=== PATIENT | male | born 1945 | race Caucasian/White ===

== ENCOUNTER 2023-01-10 11:46 | Emergency (ER) | payer MEDICARE, BC, SELFPAY ==
[2023-01-10 11:55] VITALS: BP 143/73; PULSE 62; RESP 14; TEMP 36.5; O2SAT 97; BMI 26.8
--- NOTE | 2023-01-10 12:13 | CRLHL7_ITS ---
For Patients: As a result of the 21st Century Cures Act, medical imaging exams and procedure reports are released immediately into your electronic medical record. You may view this report before your referring provider. If you have questions, please contact your health care provider. INDICATION: Left lower lung crackles, abnormal breath sounds, left flank pain, left-sided abdominal pelvic pain, history of prostate cancer. TECHNIQUE: CT chest, abdomen and pelvis acquired with IV contrast. COMPARISON: 11/22/2020 FINDINGS: Chest: Cardiovascular structures: Heart size is normal. Thoracic aorta and main pulmonary artery are normal in caliber. No pulmonary artery filling defects are seen to suggest pulmonary emboli. Extensive coronary artery and to a lesser extent thoracic aortic atherosclerotic calcifications. Mediastinum and elodia: No mass or adenopathy. Lungs: Pulmonary emphysema and nonspecific peripheral interstitial pulmonary scarring is re-identified with no acute pulmonary infiltrate. Pleura and pericardium: No effusions. Chest wall and axilla: No mass or adenopathy. Bones: Spondylosis change with a stable moderate anterior wedge compression fracture deformity of T4. Widespread osseous sclerotic metastases are again noted. Abdomen and Pelvis: Liver: Unremarkable. Spleen: Unremarkable. Pancreas: Unremarkable. Gallbladder and bile ducts: Mild gallbladder distention and mild intrahepatic as well as extrahepatic biliary duct dilation. Correlation with liver function tests is recommended. An obstructing distal common bile duct stone is not identified. Kidneys: Unremarkable. Adrenal glands: Unremarkable. GI tract: Diverticulosis of the colon most evident in the distal colon. Subtle stranding of the pericolonic fat is noted in the proximal sigmoid colon region and could represent mild diverticulitis change. No extraluminal loculated fluid collection to suggest abscess or free intraperitoneal air is seen. Appendix is normal. Nondistended stomach with apparent gastric wall thickening re-identified. Vascular structures: Atherosclerotic calcifications in the nondilated abdominal aorta and iliac arteries. Lymph nodes: Unremarkable. Miscellaneous: Small fat containing umbilical hernia and small fat containing left inguinal hernia. Pelvic Organs: Status post prostatectomy. Bones: Small osseous sclerotic foci are re-identified in the spine and to lesser extent pelvis. IMPRESSION: 1. Suspect mild diverticulitis involving the proximal sigmoid colon with no abscess or free intraperitoneal air. 2. Pulmonary emphysema and fibrotic changes without acute pulmonary infiltrate. 3. Mild biliary ductal prominence/dilation. Correlation with liver function tests would be helpful. 4. Status post prostatectomy with numerous small sclerotic osseous metastases suspected and unchanged. 5. Other findings are as noted above. Please note that all CT scans at this facility use dose modulation, iterative reconstruction, and/or weight-based dosing when appropriate to reduce radiation dose to as low as reasonably achievable. Dictated by Denzel Rizvi MD @ 01/10/2023 2:51:24 PM (Electronically Signed)
[2023-01-10] MEDS: HYDROmorphone 2 MG TABLET 4 MG PO (12:21)
--- NOTE | 2023-01-10 12:21 | ED.GENADULT ---
HPI - General Adult General Chief complaint: Abdominal Pain Stated complaint: chest pain Time Seen by Provider: 01/10/23 12:01 Source: patient Mode of arrival: ambulatory Limitations: no limitations History of Present Illness HPI narrative: Some 7-year-old male presents the emergency department with flank area pain for the past week, significant worsening over the past 24 hours. Not accompanied by fever. Does feel short of breath but more so just simply has a significant increase in pain with taking a deep breath. No paroxysmal nocturnal dyspnea, no productive cough. He also denies chest pain or prior history of cardiac issues. He tried taking 2 Tylenol this morning with some temporary improvement in his symptoms. No fevers, no dysuria. He does have a history of known prostate cancer. He initially told me that he has had this type of pain before but then on further clarification he tells me that he has never had this type of pain before and has never had investigated by physician. I reviewed the records and see than in , he has documentation of known metastatic disease to his left ribs and presented with left-sided chest and abdominal pain at that time. Those notes indicate that he was taking significant amounts of oxycodone and had constipation at the time. He does not take narcotic pain medication on a regular basis now. Denies injury or trauma. Denies any blood in his stools or urine. No recent fall. Accompanied by his today. Pain is located in the left very lateral abdomen/side from about the 6th rib down to the top of the hip laterally on the left side, radiates and wraps around to the back, achy and constant in nature, worse with movement and deep breath. Past medical history notable for metastatic prostate cancer with known metastases to the bone. He gets [facility] of [facility] I do not know the most up-to-date status but have reviewed the notes from 10/04. Medications reviewed, family says that these are accurate as listed. He is a nonsmoker. No pertinent travel. ROS is notable for the generalized and abdominal symptoms as described above, otherwise denies times 12 systems. Related Data Home Medications Medication Instructions Recorded Confirmed aspirin 325 mg tablet 81 mg PO QDAY 11/27/21 01/10/23 atorvastatin 40 mg tablet 40 mg PO .Bedtime 11/27/21 01/10/23 cholecalciferol (vitamin D3) 50 2,000 unit PO DAILY 11/27/21 01/10/23 mcg (2,000 unit) tablet leuprolide 7.5 mg (Ped) mg IM ONCE 11/27/21 11/27/21 intramuscular kit methotrexate sodium 2.5 mg tablet mg PO .Every 7 Days 11/27/21 11/27/21 omega 4-ovj-gyz-fish oil 60 mg-90 1 cap PO QDAY 11/27/21 01/10/23 mg-500 mg capsule (Fish Oil) omeprazole 40 mg capsule,delayed mg PO DAILY 11/27/21 11/27/21 release pediatric multivitamin no.16 with tab PO 11/27/21 11/27/21 fluoride 0.25 mg chewable tablet (Multivitamins With Fluoride) sulfamethoxazole 400 1 tab PO DAILY 11/27/21 01/10/23 mg-trimethoprim 80 mg tablet abiraterone 250 mg tablet 1,000 mg PO QAM 01/10/23 01/10/23 aspirin 81 mg tablet,delayed 81 mg PO DAILY 01/10/23 01/10/23 release leuprolide (3 month) IM 01/10/23 olaparib 150 mg tablet (Lynparza) 150 mg PO BID 01/10/23 01/10/23 prednisone 10 mg tablet 10 mg PO DAILY 01/10/23 01/10/23 prochlorerazone 10 mg QID PRN 01/10/23 Previous Rx's Medication Instructions Recorded triamcinolone acetonide 0.025 % 1 applic topical BID #15 grams 11/27/21 topical cream ciprofloxacin HCl 500 mg tablet 500 mg PO Q12H #20 tabs 01/10/23 hydromorphone 2 mg tablet 2 - 4 mg (1 - 2 x 2 mg) PO Q6H PRN 01/10/23 pain #7 tabs metronidazole 500 mg tablet 500 mg PO Q12H #20 tabs 01/10/23 Allergies Allergy/AdvReac Type Severity Reaction Status Date / Time oxycodone Allergy Unknown Verified 01/10/23 13:27 PFSH [facility] Social History Smoking Status: Never smoker Exam Const: Vital Signs, click to edit/add: Vital Signs - 24 hr 01/10/23 11:55 01/10/23 13:02 Temperature 97.7 F Pulse Rate [Pulse Oximeter] 62 Respiratory Rate 14 Blood Pressure 126/63 Blood Pressure [Le ft Upper Arm] 143/73 H Pulse Oximetry 97 98 Oxygen Delivery Me thod Room Air Documenting provider has reviewed patient's vital signs: yes Common normals: alert General appearance: well kempt Orientation/consciousness: Yes awake Other: Mild distress due to pain. Cooperative. Suboptimal historian but does not seem to be delirious. HENMT: Common normals: normocephalic and head/scalp atraumatic Head and scalp: normocephalic and atraumatic Face and sinus: normal facial exam Mouth: oral and palatal mucosa normal Throat: posterior oropharynx normal Eye: Common normals: conjunctivae normal General eye: normal appearance of both eyes Conjunctiva: conjunctiva(e) normal Neck & C-Spine: Common normals: full ROM and no lymphadenopathy Chest: Common normals: inspection of chest normal and palpation of chest normal Resp: Common normals: normal respiratory effort and no use of accessory muscles Other: Crackles in the left lower posterior lung pace. Cardio: Common normals: regular rate, regular rhythm, S1 normal heart sound, S2 normal heart sound and no murmurs Rate: regular rate Rhythm: regular rhythm Heart sounds: S1 normal and S2 normal GI: Other: Abdomen does not seem distended. He is not really tender to palpation over the epigastrium or right abdomen, mildly so over the left very lateral abdomen. Bowel sounds are a little hyperactive but I do not believe they sound obstructive. No obvious mass. : Other: Left-sided CVA tenderness is present on the left, though mild. Back & Pelvis: Thoracic spine/upper back: normal to inspection; no thoracic spinal tenderness and no paraspinal muscle tenderness Extremity: Common normals: normal capillary refill and no pedal edema Other: Negative Phillip sign bilaterally Neuro: Sensorium/orientation: awake and alert Speech: speech normal Gait (neuro): normal gait Motor exam: no movement abnormalities noted Psych: Common normals: thought process normal Appearance: grossly normal and well kempt Thought process: normal thought process Insight: fair Judgement: judgment good Skin: Common normals: no rashes or lesions noted General skin exam: no rashes or lesions noted Course Course ED Course: Flank area pain of uncertain etiology. Does seem to be in a significant amount of pain. I do not think this is constipation like his last ED visit. He is no longer using narcotics. Differential diagnosis including bowel obstruction, pulmonary embolism, pleural effusion, pneumonia, pathological fracture. More likely metastatic disease with pleuritic-type pain. Worse with deep breath and movement. Recommend basic labs, CT scan of the chest abdomen and pelvis. Will be given 4 mg of oral hydromorphone for pain due to previous oxycodone intolerance while we await findings. Reevaluation(s) Time of Reevaluation #1: 15:06 Reevaluation #1: Reviewed findings with patient. Pain is improving with the hydromorphone. Reviewed lab findings and CT findings. Because he does have a white count and CT findings suspicious for diverticulitis, I think this is the most likely diagnosis though I have discussed with him that there is a possibility that the pain could be related to his cancer and known bony spread. If it is related to the diverticulitis, sing should be improving significantly within 2 days on the antibiotics. He should make a follow-up appointment with his primary care doctor in 2-4 days for recheck. He may cancel this appointment if he is doing markedly better. If not improving, I would want his oncologist input regarding next steps in management and further workup regarding bone cancer pain if needed. He will be started on ciprofloxacin and metronidazole, 1st dose given in ED. I will send additional 10 day supply to his pharmacy. Alarm symptoms reviewed that would warrant ED presentation. Counseled on Tylenol and ibuprofen for pain control, very limited supply of hydromorphone given in case this is needed, counseled on risk of constipation. All questions answered. Vital Signs Vital signs: Initial Vital Signs Temperature 97.7 F 01/10/23 11:55 Temperature Source Temporal Artery Scan 01/10/23 11:55 Pulse Rate 62 01/10/23 11:55 Pulse Rhythm Regular 01/10/23 11:55 Respiratory Rate 14 01/10/23 11:55 Blood Pressure 143/73 H 01/10/23 11:55 Blood Pressure Mean 96 01/10/23 11:55 Blood Pressure Position Sitting 01/10/23 11:55 Pulse Oximetry 97 01/10/23 11:55 Oxygen Delivery Method Room Air 01/10/23 11:55 Vital Signs Temperature 97.7 F 01/10/23 11:55 Pulse Rate 62 01/10/23 11:55 Respiratory Rate 14 01/10/23 11:55 Blood Pressure 143/73 H 01/10/23 11:55 Pulse Oximetry 97 01/10/23 11:55 Oxygen Delivery Method Room Air 01/10/23 11:55 Temperature 97.7 F 01/10/23 11:55 Pulse Rate 62 01/10/23 11:55 Respiratory Rate 14 01/10/23 11:55 Blood Pressure 126/63 01/10/23 13:02 Pulse Oximetry 98 01/10/23 13:02 Oxygen Delivery Method Room Air 01/10/23 11:55 Medical Decision Making Lab Data Lab results reviewed: Yes I reviewed the patient's lab results Lab results narrative: Mild infection, no inflammation. Alk-phos is not elevated, making bone cancer diagnosis less likely. Labs: Lab Results 01/10/23 01/10/23 Range/Units 12:30 13:23 WBC 13.42 H (4.50-11.00) K/uL RBC 3.04 L (4.30-5.90) m/uL Hgb 12.9 L (13.5-17.5) gm/dL Hct 37.6 (37.0-53.0) % MCV 124 H (80-100) fL MCH 42 H (26-34) pg MCHC 34 (32-36) gm/dL RDW Coeff of [place] 14.4 (11.5-15.5) % Plt Count 184 (140-440) K/uL Neut % (Auto) 93.7 H (42.0-72.0) % Lymph % (Auto) 1.5 L (20-44) % [place] % (Auto) 4.2 (0.0-11.0) % Eos % (Auto) 0.1 (0.0-7.0) % Baso % (Auto) 0.1 (0.0-3.0) % Neut # (Auto) 12.60 H (1.7-7.0) K/uL Lymph # (Auto) 0.20 L (0.90-2.90) K/uL [place] # (Auto) 0.60 (0.00-0.90) K/UL Eos # (Auto) 0.00 (0.00-0.50) K/uL Baso # (Auto) 0.00 (0.00-0.30) K/uL Abs Immat Gran (auto) 0.10 (0.00-0.30) K/uL Imm/Tot Granulo (auto) 0.4 % INR 0.91 (0.91-1.10) D-Dimer Quant (PE/DVT) 0.47 (0.00-0.50) ug/ml Sodium 136 (135-149) mmol/L Potassium 4.2 (3.6-5.1) mmol/L Chloride 103 (96-114) mmol/L Carbon Dioxide 28 (20-32) mmol/L Anion Gap 5 L (7-15) mEq/L BUN 18 (7-30) mg/dL Creatinine 1.0 (0.5-1.5) mg/dL Estimated Creat Clear 57.95 Estimated GFR 77 ml/min Glucose 114 (60-115) mg/dL Lactate 1.3 (0.5-1.9) mmol/L Calcium 9.0 (8.4-10.6) mg/dL Total Bilirubin 0.6 (0.1-1.5) mg/dL AST 30 (12-35) U/L ALT 16 (4-50) U/L Alkaline Phosphatase 111 (40-150) U/L C-Reactive Protein < 0.5 L (0.5-1.0) mg/dL NT-Pro-B Natriuret Pep 124 pg/mL Total Protein 6.9 (6.0-8.3) g/dL Albumin 4.1 (3.3-5.0) g/dL Lipase 26 (23-300) U/L Urine Color Yellow (Yellow) Urine Appearance Clear (Clear) Urine pH 7.0 (5.0-8.5) Ur Specific [place] 1.015 (1.000-1.030) Urine Protein Negative (Negative) Urine Glucose (UA) Negative (Negative) Urine Ketones Negative (Negative) Urine Blood Trace-intact A (Negative) Urine Nitrite Negative (Negative) Urine Bilirubin Negative (Negative) Urine Urobilinogen 0.2 (0.2-1.0) Ur Leukocyte Esterase Negative (Negative) Urine RBC 0-2 (0-2) Urine WBC 0-2 (0-5) Ur Squamous Epith Cells None (None-Few) Urine Bacteria None (None) Imaging Data CT scan - abdomen: Attestation: I have reviewed the pertinent imaging results. My impression: No obvious mass or hernia. 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 There seems to be some inflammation in the left lower pelvis as well. No obvious abscess or free air. Radiologist's impression: IMPRESSION: 1. Suspect mild diverticulitis involving the proximal sigmoid colon with no abscess or free intraperitoneal air. 2. Pulmonary emphysema and fibrotic changes without acute pulmonary infiltrate. 3. Mild biliary ductal prominence/dilation. Correlation with liver function tests would be helpful. 4. Status post prostatectomy with numerous small sclerotic osseous metastases suspected and unchanged. 5. Other findings are as noted above. ECG Data Attestation: I personally reviewed and interpreted this ECG as follows: Prior ECG tracings: not available for review Interpretation: Normal sinus rhythm with slight 1st degree AV block. There is incomplete right bundle-branch block with no other ischemic changes. Rate is 65 with normal axis. Discharge Plan Discharge Clinical Impression: Acute diverticulitis Instructions: Diverticulitis (ED) Additional Instructions: As we discussed, I think her pain is caused by acute diverticulitis. This is an infection and inflammation of the lower left part of your colon. I would like to start you on antibiotics for this. You will take 2 different antibiotics, ciprofloxacin and metronidazole 1 tablet 2 times daily. Try to take these about 12 hours apart. The dose given in the emergency department will count as your evening dose today. 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 Your next dose will be early tomorrow morning. For pain, I recommend Tylenol 1000 mg 3 times daily and or ibuprofen 600 mg every 8 hours. I have given you a small supply of hydromorphone, the pills that your given in the emergency department. Take these only for severe pain if you have maxed out the 2 other options. Your pain should start to improve considerably in 48 hours. I would like for you to call tomorrow morning and make an appointment to be re-evaluated by your primary care doctor on Wednesday or . You can cancel the appointment if you are doing much better. Remember that the hydromorphone may cause constipation. Use stool softeners and or MiraLax if needed. As we discussed, there is certainly a possibility that this pain could be related to cancer spread into your ribs and bones of your back. This has been the case in the past. If your pain is not markedly better within a couple of days, it makes this cancer diagnosis and prognosis much more likely. Would like for you to touch base with her oncology team if your pain is not improving for additional testing. The tests that I have done in the emergency department and can do on a Wednesday afternoon here may not fully answer this question. In the meantime, if you start experiencing persistent vomiting, significant bloody stools, severe weakness and or high fevers, come back to the emergency department. Activity Level: Activity as Tolerated Discharge Diet: Regular Prescriptions: New metronidazole 500 mg tablet 500 mg PO Q12H Qty: 20 0RF ciprofloxacin HCl 500 mg tablet 500 mg PO Q12H Qty: 20 0RF hydromorphone 2 mg tablet 2 - 4 mg PO Q6H PRN (Reason: pain) Qty: 7 0RF Rx Instructions: For severe pain not relieved by Tylenol and ibuprofen No Action cholecalciferol (vitamin D3) 50 mcg (2,000 unit) tablet 2,000 unit PO DAILY sulfamethoxazole-trimethoprim 400-80 mg tablet 1 tab PO DAILY leuprolide 7.5 mg (Ped) kit IM ONCE Multivitamins With Fluoride 0.25 mg tablet,chewable PO atorvastatin 40 mg tablet 40 mg PO .Bedtime aspirin 325 mg tablet 81 mg PO QDAY methotrexate sodium 2.5 mg tablet PO .Every 7 Days omeprazole 40 mg capsule,delayed release(DR/EC) PO DAILY omega 0-wkd-jwc-fish oil [Fish Oil] 60-90-500 mg capsule 1 cap PO QDAY triamcinolone acetonide 0.025 % cream 1 applic topical BID Qty: 15 1RF aspirin 81 mg tablet,delayed release (DR/EC) 81 mg PO DAILY leuprolide (3 month) [Lupron Depot (3 month)] IM Lynparza 150 mg tablet 150 mg PO BID prochlorerazone 10 mg QID PRN Rx Instructions: 1 tab as needed for vomiting abiraterone 250 mg tablet 1,000 mg PO QAM Rx Instructions: must be taken on empty stomach, at least 1 hr before or 2 hrs after a meal/food prednisone 10 mg tablet 10 mg PO DAILY Follow Up/Referrals: Jaime Trevizo MD [Primary Care Provider] -
[2023-01-10 12:36] LABS: Basophils Percent Auto 0.1 % (0.0-3.0); Eosinophils Percent Auto 0.1 % (0.0-7.0); Hematocrit 37.6 % (37.0-53.0); Hemoglobin* 12.9 gm/dL (13.5-17.5); Immature Granulocytes Pct Auto 0.4 %; Lymphocytes Percent Auto 1.5 % (20-44); Mean Corpuscular HGB Conc 34 gm/dL (32-36); Mean Corpuscular Hemoglobin 42 pg (26-34); Mean Corpuscular Volume 124 fL (80-100); Monocytes Percent Auto 4.2 % (0.0-11.0); Neutrophils Percent Auto 93.7 % (42.0-72.0); Platelet Count* 184 K/uL (140-440); RDW Coefficient of Variation % 14.4 % (11.5-15.5); Red Blood Count 3.04 m/uL (4.30-5.90); White Blood Count* 13.42 K/uL (4.50-11.00)
[2023-01-10 12:46] LABS: Lactate* 1.3 mmol/L (0.5-1.9)
[2023-01-10 12:47] LABS: Slide Review Reflex No
[2023-01-10 12:58] LABS: INR 0.91 (0.91-1.10); Prothrombin Time 12.8 Seconds
[2023-01-10 13:02] VITALS: BP 126/63; O2SAT 98
[2023-01-10 13:09] LABS: Albumin* 4.1 g/dL (3.3-5.0); Chloride* 103 mmol/L (96-114); Sodium* 136 mmol/L (135-149)
[2023-01-10 13:10] LABS: Potassium* 4.2 mmol/L (3.6-5.1)
[2023-01-10 13:12] LABS: Alkaline Phosphatase* 111 U/L (40-150); Anion Gap 5 mEq/L (7-15); Aspartate Amino Transferase* 30 U/L (12-35); Bilirubin Total* 0.6 mg/dL (0.1-1.5); Carbon Dioxide* 28 mmol/L (20-32); Est. Creatinine Clearance* 57.95; Estimated Glomerular Filt Rate 77 ml/min; Total Protein* 6.9 g/dL (6.0-8.3)
[2023-01-10 13:13] LABS: Alanine Aminotransferase* 16 U/L (4-50); Blood Urea Nitrogen* 18 mg/dL (7-30); Glucose* 114 mg/dL (60-115); Lipase* 26 U/L (23-300)
[2023-01-10 13:14] LABS: D Dimer Quantitative* 0.47 ug/ml (0.00-0.50)
[2023-01-10 13:19] LABS: C Reactive Protein* < 0.5 mg/dL (0.5-1.0)
[2023-01-10 13:28] LABS: Appearance Urine Clear (Clear); Bilirubin Urine Negative (Negative); Blood Urine Trace-intact (Negative); Color Urine Yellow (Yellow); Glucose Urine Negative (Negative); Ketones Urine Negative (Negative); Leukocyte Esterase Urine Negative (Negative); Nitrite Urine Negative (Negative); Protein Urine Negative (Negative); Specific Gravity Urine 1.015 (1.000-1.030); Urobilinogen Urine 0.2 (0.2-1.0)
[2023-01-10 13:29] LABS: NT Pro B Type NatriureticPept* 124 pg/mL
[2023-01-10 13:40] LABS: RBC Urine 0-2 (0-2); WBC Urine 0-2 (0-5)
[2023-01-10] MEDS: CIPROFLOXACIN 500 MG TABLET PO (15:16)
[2023-01-10] MEDS: metroNIDAZOLE 500 MG TABLET PO (15:16)
[2023-01-10 15:21] VITALS: BP 143/73; PULSE 62; RESP 14; TEMP 36.5
[2023-01-10 15:24] VITALS: BP 121/70; PULSE 68; RESP 12; O2SAT 96
[2023-04-06 10:52] LABS: Troponin, Point-of-Care* 0.01 ng/ml (0.01-0.04)
== END 2023-01-10 15:22 | disposition home or self-care (01) ==
PROVIDERS: Emergency Provider Family Medicine; PCP Family Medicine
DX: K57.92 Diverticulitis of intestine, part unspecified, without perforation or abscess without bleeding (principal)
CPT/HCPCS: 36415; 71260; 74177; 80053; 81001; 83605; 83690; 83880; 84484; 85025; 85379; 85610; 86140; 93005; 99284; 99285; A9270; Q9967

== ENCOUNTER 2023-04-25 17:17 | Emergency (ER) | payer MEDICARE, BC, SELFPAY ==
[2023-04-25] VITALS (13 sets, daily range): BP systolic 120–148; BP diastolic 67–75; PULSE 74–84; RESP 18; TEMP 36.4; O2SAT 93–97; BMI 24.8
--- NOTE | 2023-04-25 17:50 | ED_ITS ---
HPI - General Adult General Chief complaint: Dizziness/Vertigo Stated complaint: Severe dizziness, shortness of breath Time Seen by Provider: 04/25/23 17:20 Source: patient Mode of arrival: ambulatory Limitations: no limitations History of Present Illness HPI narrative: [age] Year old male with metastatic prostate cancer coming in today with several concerns. 1. he complains of shortness of breath. He states he has been short of breath for several years. He states that a few years ago he had a bypass which did help his shortness of breath did take it away completely. Continues to today. He feels like in the last couple of months it has perhaps gotten worse. He does not feel short of breath at rest only with physical activity. He does not have any chest pain. 2. He complains of feeling dizzy. Dizziness has been going on for quite some time as well, unclear how long. He states that he feels off balance. He states that the dizziness has gotten worse since this Wednesday which is 4 days ago. He states that it comes and goes, he is not dizzy all the time. This morning for example he felt fine had his breakfast without difficulty and then the dizziness came and has been present all day. He states he has been sitting in his recliner most of the day and he but has only urinated twice. 3. Extreme fatigue. This is been present for quite some time. He takes methylphenidate because of this. He feels like it is not helping in the fatigue is only getting worse. He has no energy. 4. Cough. Has been present for about a month. It is productive of thick phlegm. He denies fevers or chills. He did vomit once this morning. He states he has had diarrhea for about a month but in the last week he has had 1 or 2 solid bowel movements per day. Patient states that he started immunotherapy 03/16/2023 and is also currently undergoing radiation therapy. Related Data Home Medications Medication Instructions Recorded Confirmed aspirin 325 mg tablet 81 mg PO QDAY 11/27/21 04/25/23 atorvastatin 40 mg tablet 40 mg PO .Bedtime 11/27/21 04/25/23 cholecalciferol (vitamin D3) 50 2,000 unit PO DAILY 11/27/21 01/10/23 mcg (2,000 unit) tablet leuprolide 7.5 mg (Ped) mg IM ONCE 11/27/21 11/27/21 intramuscular kit methotrexate sodium 2.5 mg tablet mg PO .Every 7 Days 11/27/21 11/27/21 omega 7-jgl-ncr-fish oil 60 mg-90 1 cap PO QDAY 11/27/21 01/10/23 mg-500 mg capsule (Fish Oil) omeprazole 40 mg capsule,delayed mg PO DAILY 11/27/21 11/27/21 release pediatric multivitamin no.16 with tab PO 11/27/21 11/27/21 fluoride 0.25 mg chewable tablet (Multivitamins With Fluoride) sulfamethoxazole 400 1 tab PO DAILY 11/27/21 01/10/23 mg-trimethoprim 80 mg tablet abiraterone 250 mg tablet 1,000 mg PO QAM 01/10/23 01/10/23 aspirin 81 mg tablet,delayed 81 mg PO DAILY 01/10/23 01/10/23 release leuprolide (3 month) IM 01/10/23 olaparib 150 mg tablet (Lynparza) 150 mg PO BID 01/10/23 01/10/23 prednisone 10 mg tablet 10 mg PO DAILY 01/10/23 01/10/23 prochlorerazone 10 mg QID PRN 01/10/23 Previous Rx's Medication Instructions Recorded triamcinolone acetonide 0.025 % 1 applic topical BID #15 grams 11/27/21 topical cream ciprofloxacin HCl 500 mg tablet 500 mg PO Q12H #20 tabs 01/10/23 hydromorphone 2 mg tablet 2 - 4 mg (1 - 2 x 2 mg) PO Q6H PRN 01/10/23 pain #7 tabs metronidazole 500 mg tablet 500 mg PO Q12H #20 tabs 01/10/23 Allergies Allergy/AdvReac Type Severity Reaction Status Date / Time oxycodone Allergy Unknown Verified 01/10/23 13:27 Review of Systems Status of ROS: Reports: 10 or more systems reviewed and unremarkable except as noted in History and below [facility] Social History Smoking Status: Never smoker Do you use any of these nicotine containing products: None Second hand tobacco smoke exposure: No How often do you have a drink containing alcohol: never AUDIT-C Alcohol total score: 0 Non-prescribed substance use: denies use Exam Narrative: Exam Narrative: Well-nourished well-developed patient in no acute distress. Alert and oriented. Answers questions appropriately. Mood and affect are appropriate. Thoughts are goal oriented and rational. No tangential or magical thinking noted. Patient speaks in full sentences without needing to catch his breath. HEENT: Normocephalic atraumatic. Pupils are equally round reactive to light. Extraocular muscles are intact. Conjunctivae are moist without any icterus noted. Slightly dry mucous membranes. Neck is soft. Cardiovascular: Distant heart sounds. Regular rate and rhythm. Lungs: Clear to auscultation bilaterally no wheezes rhonchi or rales are appreciated. Patient takes deep breaths without any discomfort. Abdomen: Soft, protuberant , nontender and nondistended with normal bowel sounds. Extremities: Bilateral lower extremities are without edema. Skin: Well perfused. Const: Vital Signs, click to edit/add: Vital Signs - 24 hr 04/25/23 17:21 04/25/23 17:48 Temperature 97.5 F L Pulse Rate [Right Pulse Oximeter] 81 Respiratory Rate 18 Blood Pressure [Ri ght Upper Arm] 148/72 H Pulse Oximetry 97 96 Oxygen Delivery Me thod Room Air Course Course ED Course: The differential diagnosis at this time includes infectious etiology such as COV ID-19 or pneumonia, coronary artery disease, cancer progression, side effects of immunotherapy and radiation, PE, bronchitis. EKG, read by me, shows normal sinus rhythm with a first-degree AV block, i ncomplete right bundle-branch block, pulse 78. IV is established and labs were drawn. CBC showed a hemoglobin of 11.8, hematocrit of 34.9, white blood cell count of 8.34, platelet count 236. 85.1% neutrophils. Sodium was low at 128, normal potassium. Normal renal function. With IV fluids were started: Patient received a total of 1 L of normal saline over 2 hours. LFTs were elevated with a an AST of 82, ALT of 101, alkaline phosphatase is 457. Because of this and right upper quadrant ultrasound was ordered, this was unremarkable. D-dimer was elevated at 0.72. Chest CT PE protocol did not show any evidence of PE, however did show potential pneumonia. Triple swab was negative. Normal troponin. Patient felt significantly better after L of fluid. He was able to walk to the bathroom with his cane without assistance and he was no longer dizzy. Vital Signs Vital signs: Initial Vital Signs Temperature 97.5 F L 04/25/23 17:21 Temperature Source Temporal Artery Scan 04/25/23 17:21 Pulse Rate 81 04/25/23 17:21 Respiratory Rate 18 04/25/23 17:21 Blood Pressure 148/72 H 04/25/23 17:21 Blood Pressure Mean 97 04/25/23 17:21 Blood Pressure Position Sitting 04/25/23 17:21 Pulse Oximetry 97 04/25/23 17:21 Oxygen Delivery Method Room Air 04/25/23 17:21 Vital Signs Temperature 97.5 F L 04/25/23 17:21 Pulse Rate 81 04/25/23 17:21 Respiratory Rate 18 04/25/23 17:21 Blood Pressure 148/72 H 04/25/23 17:21 Pulse Oximetry 97 04/25/23 17:21 Oxygen Delivery Method Room Air 04/25/23 17:21 Temperature 97.5 F L 04/25/23 17:21 Pulse Rate 81 04/25/23 17:21 Respiratory Rate 18 04/25/23 17:21 Blood Pressure 148/72 H 04/25/23 17:21 Pulse Oximetry 96 04/25/23 17:48 Oxygen Delivery Method Room Air 04/25/23 17:21 Medications Administered Medications: Discontinued Medications Generic Name Dose Route Start Last Admin Trade Name Freq PRN Reason Stop Dose Admin Sodium Chloride 500 mls @ 500 mls/hr 04/25/23 17:53 04/25/23 19:28 0.9 % Sodium Chloride 500 Ml IV 04/25/23 18:52 Infused .Q1H ONE Infusion Sodium Chloride 500 mls @ 500 mls/hr 04/25/23 18:59 04/25/23 19:28 0.9 % Sodium Chloride 500 Ml IV 04/25/23 19:58 500 mls/hr .Q1H ONE Administration Meclizine HCl 25 mg 04/25/23 18:59 04/25/23 19:26 Meclizine Hcl 25 Mg Tablet PO 04/25/23 19:00 25 mg ONCE ONE Administration Medical Decision Making [facility] Narrative Medical decision making narrative: 77-year-old male presenting with increased fatigue, shortness of breath, cough, dizziness and found to have Hyponatremia, elevated LFTs, infiltrate on chest CT concerning for a developing pneumonia. Given that the patient does have a productive cough that seems to be worsening and increased fatigue, I do not think it is unreasonable to treat for pneumonia. Patient will be sent home with Keflex. I do want him to have a sodium repeated in the next 2-3 days-he will do this with his primary care provider. Medical Records Medical records reviewed: Yes I reviewed the patient's medical records Lab Data Lab results reviewed: Yes I reviewed the patient's lab results Labs: Lab Results 04/25/23 04/25/23 04/25/23 Range/Units 17:49 18:03 18:10 WBC 8.34 (4.50-11.00) K/uL RBC 3.10 L (4.30-5.90) m/uL Hgb 11.8 L (13.5-17.5) gm/dL Hct 34.9 L (37.0-53.0) % MCV 113 H (80-100) fL MCH 38 H (26-34) pg MCHC 34 (32-36) gm/dL RDW Coeff of [place] 13.1 (11.5-15.5) % Plt Count 236 (140-440) K/uL Neut % (Auto) 85.1 H (42.0-72.0) % Lymph % (Auto) 2.3 L (20-44) % Glenn % (Auto) 10.9 (0.0-11.0) % Eos % (Auto) 0.7 (0.0-7.0) % Baso % (Auto) 0.4 (0.0-3.0) % Neut # (Auto) 7.10 H (1.7-7.0) K/uL Lymph # (Auto) 0.20 L (0.90-2.90) K/uL Glenn # (Auto) 0.90 (0.00-0.90) K/UL Eos # (Auto) 0.06 (0.00-0.50) K/uL Baso # (Auto) 0.03 (0.00-0.30) K/uL Abs Immat Gran (auto) 0.05 (0.00-0.30) K/uL Imm/Tot Granulo (auto) 0.6 % D-Dimer Quant (PE/DVT) 0.72 H (0.00-0.50) ug/ml Sodium 128 L (135-149) mmol/L Potassium 4.7 (3.6-5.1) mmol/L Chloride 97 (96-114) mmol/L Carbon Dioxide 23 (20-32) mmol/L Anion Gap 8 (7-15) mEq/L BUN 13 (7-30) mg/dL Creatinine 0.6 (0.5-1.5) mg/dL Estimated Creat Clear 61.85 Estimated GFR 98 ml/min Glucose 184 H (60-115) mg/dL Lactate 1.0 (0.5-1.9) mmol/L Calcium 8.6 (8.4-10.6) mg/dL Total Bilirubin 0.5 (0.1-1.5) mg/dL Direct Bilirubin 0.3 (0.0-0.5) mg/dL AST 82 H (12-35) U/L ALT 101 H (4-50) U/L Alkaline Phosphatase 457 H (40-150) U/L Troponin I < 0.01 L (0.01-0.04) ng/mL C-Reactive Protein 8.3 H (0.5-1.0) mg/dL NT-Pro-B Natriuret Pep 192 pg/mL Total Protein 6.9 (6.0-8.3) g/dL Albumin 3.7 (3.3-5.0) g/dL TSH 1.520 (0.270-4.20) uIU/mL Urine Color (Yellow) Urine Appearance (Clear) Urine pH (5.0-8.5) Ur Specific [place] (1.000-1.030) Urine Protein (Negative) Urine Glucose (UA) (Negative) Urine Ketones (Negative) Urine Blood (Negative) Urine Nitrite (Negative) Urine Bilirubin (Negative) Urine Urobilinogen (0.2-1.0) Ur Leukocyte Esterase (Negative) Urine RBC (0-2) Urine WBC (0-5) Ur Squamous Epith Cells (None-Few) Urine Bacteria (None) SARS-CoV-2 (PCR) Negative SARS-CoV-2 (Negative) Monoscreen Negative (Negative) Influenza Type A (PCR) Negative PCR FLU A (Negative) Influenza Type B (PCR) Negative PCR FLU B (Negative) RSV (PCR) Negative PCR RSV (Negative) POC Troponin I 0.01 (0.01-0.04) ng/ml 04/25/23 Range/Units 18:40 WBC (4.50-11.00) K/uL RBC (4.30-5.90) m/uL Hgb (13.5-17.5) gm/dL Hct (37.0-53.0) % MCV (80-100) fL MCH (26-34) pg MCHC (32-36) gm/dL RDW Coeff of [place] (11.5-15.5) % Plt Count (140-440) K/uL Neut % (Auto) (42.0-72.0) % Lymph % (Auto) (20-44) % Glenn % (Auto) (0.0-11.0) % Eos % (Auto) (0.0-7.0) % Baso % (Auto) (0.0-3.0) % Neut # (Auto) (1.7-7.0) K/uL Lymph # (Auto) (0.90-2.90) K/uL Glenn # (Auto) (0.00-0.90) K/UL Eos # (Auto) (0.00-0.50) K/uL Baso # (Auto) (0.00-0.30) K/uL Abs Immat Gran (auto) (0.00-0.30) K/uL Imm/Tot Granulo (auto) % D-Dimer Quant (PE/DVT) (0.00-0.50) ug/ml Sodium (135-149) mmol/L Potassium (3.6-5.1) mmol/L Chloride (96-114) mmol/L Carbon Dioxide (20-32) mmol/L Anion Gap (7-15) mEq/L BUN (7-30) mg/dL Creatinine (0.5-1.5) mg/dL Estimated Creat Clear Estimated GFR ml/min Glucose (60-115) mg/dL Lactate (0.5-1.9) mmol/L Calcium (8.4-10.6) mg/dL Total Bilirubin (0.1-1.5) mg/dL Direct Bilirubin (0.0-0.5) mg/dL AST (12-35) U/L ALT (4-50) U/L Alkaline Phosphatase (40-150) U/L Troponin I (0.01-0.04) ng/mL C-Reactive Protein (0.5-1.0) mg/dL NT-Pro-B Natriuret Pep pg/mL Total Protein (6.0-8.3) g/dL Albumin (3.3-5.0) g/dL TSH (0.270-4.20) uIU/mL Urine Color Yellow (Yellow) Urine Appearance Clear (Clear) Urine pH 6.0 (5.0-8.5) Ur Specific [place] 1.010 (1.000-1.030) Urine Protein Negative (Negative) Urine Glucose (UA) Negative (Negative) Urine Ketones Negative (Negative) Urine Blood Negative (Negative) Urine Nitrite Negative (Negative) Urine Bilirubin Negative (Negative) Urine Urobilinogen 0.2 (0.2-1.0) Ur Leukocyte Esterase Negative (Negative) Urine RBC 0-2 (0-2) Urine WBC 0-2 (0-5) Ur Squamous Epith Cells None (None-Few) Urine Bacteria None (None) SARS-CoV-2 (PCR) (Negative) Monoscreen (Negative) Influenza Type A (PCR) (Negative) Influenza Type B (PCR) (Negative) RSV (PCR) (Negative) POC Troponin I (0.01-0.04) ng/ml Imaging Data Chest x-ray: Attestation: I have reviewed the pertinent imaging results. Radiologist's impression: Chest 2 views. COMPARISON: CT 01/10/2023. Radiographs 11/25/2020.. FINDINGS: Unchanged cardiomediastinal silhouette. Lungs are hyperinflated with bilateral interstitial opacities, increased compared to prior radiographs from 2000. Nodular density along the left heart border appears new compared to prior CT. No definite consolidation. No pleural effusion or pneumothorax. IMPRESSION: 1. Findings of emphysema and interstitial lung disease, increased compared to prior radiographs from 2020. 2. New nodular opacity adjacent to the left heart border may be artifactual secondary to overlap versus pulmonary nodule or small focus of atelectasis/infection. Recommend repeat radiographs in 4-6 weeks to document resolution. CT scan - chest: Attestation: I have reviewed the pertinent imaging results. Radiologist's impression: [address] [address] Diagnostic Imaging Report Patient: Martin Gates MR#: [id number] : 1945 Acct:[id number] Loc: ED Service Date: 04/25/[address]: Ordering Physician: Viki Stanford M.D. Date of Service: 04/25/23 Procedure(s): CT angio chest PE protocol Accession Number(s): [id number] cc: Viki Stanford M.D.; Jaime Trevizo M.D.~ For Patients: As a result of the Cures Act, medical imaging exams and procedure reports are released immediately into your electronic medical record. You may view this report before your referring provider. If you have questions, please contact your health care provider. INDICATION: Shortness of breath. TECHNIQUE: CT chest PE was acquired with 95 Isovue 370 cc Omnipaque 350 IV contrast. COMPARISON: CT 01/10/2023. FINDINGS: Heart and vasculature: Contrast opacification of the pulmonary arterial tree is adequate. No sign of pulmonary embolism. Heart size is normal. Thoracic aorta and pulmonary artery are normal in caliber. Atherosclerotic aortic and coronary artery calcifications. Lungs and pleura: Bilateral subpleural reticulation, centrilobular emphysema as well as pleural/parenchymal scarring is grossly similar to CT from 01/10/2023. Increased size of a right middle lobe pulmonary nodule measuring 6 mm, previously 2 mm (series 5, image 111). Increased size of a left upper lobe pulmonary nodule measuring 5 mm (image 63) similarly, additional small pulmonary nodules have increased in size. No pleural effusion pneumothorax. Small amount of secretions within the trachea and mainstem bronchi. New confluent consolidation in the medial right lung base (series 5, image 156) Lymph nodes/mediastinum: No mediastinal, hilar, or axillary adenopathy. Chest wall: No masses. Upper abdomen: No acute or significant findings. Bones: Osseous demineralization. Unchanged compression deformity T4. New inferior endplate compression deformity of T6 with mild vertebral body height loss. No retropulsion. Innumerable sub centimeter sclerotic lesions. Multilevel degenerative disc disease throughout the thoracic spine. IMPRESSION: 1. No evidence of pulmonary embolism. 2. Findings of pulmonary emphysema and interstitial lung disease with new small foci of consolidation that may represent early/developing pneumonia. 3. Increase in size of several small pulmonary nodules, which may be infectious/inflammatory versus metastatic. Recommend short-term interval follow-up CT in 6-8 weeks. 4. New mild T6 inferior endplate fracture. US - abdomen: Attestation: I have reviewed the pertinent imaging results. Radiologist's impression: INDICATION: Transaminitis. TECHNIQUE: Ultrasound abdomen limited. Sonographic images of the right upper quadrant were obtained using marrero-scale and color Doppler images. COMPARISON: CT chest abdomen pelvis 01/10/2023. FINDINGS: Liver: Normal in size and echotexture. No suspicious masses. No intrahepatic biliary dilatation. Portal vein is patent with blood flow toward the liver. Gallbladder: Biliary sludge. No cholelithiasis. Normal wall thickness. No pericholecystic fluid. No sonographic Mitchell`s sign. Common bile duct: 9 mm. Pancreas: Partially visualized pancreas appears within normal limits. Right kidney: Normal in size. Mildly increased echogenicity of the renal parenchyma. No suspicious masses, stones, or hydronephrosis. Vasculature: Proximal abdominal aorta and IVC are unremarkable. IMPRESSION: 1. No cholelithiasis. Biliary sludge and mildly distended common bile duct without other convincing evidence of acute cholecystitis. Consider further evaluation with MRCP or nuclear medicine HIDA scan. 2. Mildly increased echogenicity of the renal parenchyma, suggestive of medical renal disease. Discharge Plan Discharge Clinical Impression: Hyponatremia, Pneumonia Patient Disposition: Home, Self-Care Condition: Improved Additional Instructions: Take all antibiotics as prescribed. Follow-up with primary care provider this week to have your sodium levels rechecked. Return to the ER if your symptoms worsen. Prescriptions: No Action cholecalciferol (vitamin D3) 50 mcg (2,000 unit) tablet 2,000 unit PO DAILY sulfamethoxazole-trimethoprim 400-80 mg tablet 1 tab PO DAILY leuprolide 7.5 mg (Ped) kit IM ONCE Multivitamins With Fluoride 0.25 mg tablet,chewable PO atorvastatin 40 mg tablet 40 mg PO .Bedtime aspirin 325 mg tablet 81 mg PO QDAY methotrexate sodium 2.5 mg tablet PO .Every 7 Days omeprazole 40 mg capsule,delayed release(DR/EC) PO DAILY omega 3-zir-ery-fish oil [Fish Oil] 60-90-500 mg capsule 1 cap PO QDAY triamcinolone acetonide 0.025 % cream 1 applic topical BID Qty: 15 1RF aspirin 81 mg tablet,delayed release (DR/EC) 81 mg PO DAILY leuprolide (3 month) [Lupron Depot (3 month)] IM Lynparza 150 mg tablet 150 mg PO BID prochlorerazone 10 mg QID PRN Rx Instructions: 1 tab as needed for vomiting abiraterone 250 mg tablet 1,000 mg PO QAM Rx Instructions: must be taken on empty stomach, at least 1 hr before or 2 hrs after a meal/food prednisone 10 mg tablet 10 mg PO DAILY metronidazole 500 mg tablet 500 mg PO Q12H Qty: 20 0RF ciprofloxacin HCl 500 mg tablet 500 mg PO Q12H Qty: 20 0RF hydromorphone 2 mg tablet 2 - 4 mg PO Q6H PRN (Reason: pain) Qty: 7 0RF Rx Instructions: For severe pain not relieved by Tylenol and ibuprofen Follow Up/Referrals: Jaime Trevizo MD [Primary Care Provider] - Stand Alone Forms: My[facility] Info Instructions
[2023-04-25] MEDS: 0.9 % SODIUM CHLORIDE 500 ML 500 ML IV ×2 (18:15→19:28)
[2023-04-25 18:18] LABS: Basophils Absolute Auto 0.03 K/uL (0.00-0.30); Basophils Percent Auto 0.4 % (0.0-3.0); Eosinophils Absolute Auto 0.06 K/uL (0.00-0.50); Eosinophils Percent Auto 0.7 % (0.0-7.0); Hematocrit 34.9 % (37.0-53.0); Hemoglobin* 11.8 gm/dL (13.5-17.5); Immature Granulocytes Abs Auto 0.05 K/uL (0.00-0.30); Immature Granulocytes Pct Auto 0.6 %; Lymphocytes Percent Auto 2.3 % (20-44); Mean Corpuscular HGB Conc 34 gm/dL (32-36); Mean Corpuscular Hemoglobin 38 pg (26-34); Mean Corpuscular Volume 113 fL (80-100); Monocytes Percent Auto 10.9 % (0.0-11.0); Neutrophils Percent Auto 85.1 % (42.0-72.0); Platelet Count* 236 K/uL (140-440); RDW Coefficient of Variation % 13.1 % (11.5-15.5); White Blood Count* 8.34 K/uL (4.50-11.00)
[2023-04-25 18:20] LABS: Slide Review Reflex No
[2023-04-25 18:28] LABS: Troponin, Point-of-Care* 0.01 ng/ml (0.01-0.04)
[2023-04-25 18:29] LABS: Mono Screen* Negative (Negative)
[2023-04-25 18:33] LABS: Albumin* 3.7 g/dL (3.3-5.0); Chloride* 97 mmol/L (96-114)
[2023-04-25 18:34] LABS: Potassium* 4.7 mmol/L (3.6-5.1); Sodium* 128 mmol/L (135-149)
[2023-04-25 18:36] LABS: Alkaline Phosphatase* 457 U/L (40-150); Anion Gap 8 mEq/L (7-15); Aspartate Amino Transferase* 82 U/L (12-35); Bilirubin Direct* 0.3 mg/dL (0.0-0.5); Bilirubin Total* 0.5 mg/dL (0.1-1.5); Blood Urea Nitrogen* 13 mg/dL (7-30); Carbon Dioxide* 23 mmol/L (20-32); Creatinine* 0.6 mg/dL (0.5-1.5); Est. Creatinine Clearance* 61.85; Estimated Glomerular Filt Rate 98 ml/min; Total Protein* 6.9 g/dL (6.0-8.3)
[2023-04-25 18:37] LABS: Alanine Aminotransferase* 101 U/L (4-50); Calcium* 8.6 mg/dL (8.4-10.6); Glucose* 184 mg/dL (60-115)
[2023-04-25 18:38] LABS: D Dimer Quantitative* 0.72 ug/ml (0.00-0.50)
[2023-04-25 18:39] LABS: C Reactive Protein* 8.3 mg/dL (0.5-1.0)
--- NOTE | 2023-04-25 18:46 | CRLHL7_ITS ---
For Patients: As a result of the Century Cures Act, medical imaging exams and procedure reports are released immediately into your electronic medical record. You may view this report before your referring provider. If you have questions, please contact your health care provider. INDICATION: Shortness of breath. TECHNIQUE: CT chest PE was acquired with 95 Isovue 370 cc Omnipaque 350 IV contrast. COMPARISON: CT 01/10/2023. FINDINGS: Heart and vasculature: Contrast opacification of the pulmonary arterial tree is adequate. No sign of pulmonary embolism. Heart size is normal. Thoracic aorta and pulmonary artery are normal in caliber. Atherosclerotic aortic and coronary artery calcifications. Lungs and pleura: Bilateral subpleural reticulation, centrilobular emphysema as well as pleural/parenchymal scarring is grossly similar to CT from 01/10/2023. Increased size of a right middle lobe pulmonary nodule measuring 6 mm, previously 2 mm (series 5, image 111). Increased size of a left upper lobe pulmonary nodule measuring 5 mm (image 63) similarly, additional small pulmonary nodules have increased in size. No pleural effusion pneumothorax. Small amount of secretions within the trachea and mainstem bronchi. New confluent consolidation in the medial right lung base (series 5, image 156) Lymph nodes/mediastinum: No mediastinal, hilar, or axillary adenopathy. Chest wall: No masses. Upper abdomen: No acute or significant findings. Bones: Osseous demineralization. Unchanged compression deformity T4. New inferior endplate compression deformity of T6 with mild vertebral body height loss. No retropulsion. Innumerable sub centimeter sclerotic lesions. Multilevel degenerative disc disease throughout the thoracic spine. IMPRESSION: 1. No evidence of pulmonary embolism. 2. Findings of pulmonary emphysema and interstitial lung disease with new small foci of consolidation that may represent early/developing pneumonia. 3. Increase in size of several small pulmonary nodules, which may be infectious/inflammatory versus metastatic. Recommend short-term interval follow-up CT in 6-8 weeks. 4. New mild T6 inferior endplate fracture. Please note that all CT scans at this facility use dose modulation, iterative reconstruction, and/or weight-based dosing when appropriate to reduce radiation dose to as low as reasonably achievable. Dictated by Shreya Alston MD @ 04/25/2023 7:47:07 PM (Electronically Signed)
[2023-04-25 18:49] LABS: NT Pro B Type NatriureticPept* 192 pg/mL; Troponin I* < 0.01 ng/mL (0.01-0.04)
[2023-04-25 18:50] LABS: Appearance Urine Clear (Clear); Bilirubin Urine Negative (Negative); Blood Urine Negative (Negative); Color Urine Yellow (Yellow); Glucose Urine Negative (Negative); Ketones Urine Negative (Negative); Leukocyte Esterase Urine Negative (Negative); Nitrite Urine Negative (Negative); Protein Urine Negative (Negative); Urobilinogen Urine 0.2 (0.2-1.0)
[2023-04-25 18:51] LABS: PCR FLU A Negative PCR FLU A (Negative); PCR FLU B Negative PCR FLU B (Negative); PCR RSV Negative PCR RSV (Negative); SARS PCR* Negative SARS-CoV-2 (Negative)
[2023-04-25 18:56] LABS: RBC Urine 0-2 (0-2); WBC Urine 0-2 (0-5)
--- OUTSIDE RECORDS SUMMARY | 2023-04-25 18:58 | XMS_ITS | Clinical Summary ---
Author Name Unknown Organization [facility] Address [address] [place] [address] Care Team Providers Care Animal Rides Manager Name Role Phone Elsewhere, Pcp Primary Care Provider Unavailabl e Source Comments Patient records contain information from all sites at [facility]. For routine questions regarding patient records, call [phone] during business hours, M-F 8:00 AM - 5:00 PM Central Time. Record requests for emergency care only can be directed to [phone] at any time.[facility] Allergies Active Allergy Reactions Criticality Noted Date Comments Azathioprine Other (see comments),GI intolerance Medium 12/21/2019 Fatigue Oxycodone Other (see comments) 01/10/2023 Medications Medication Sig Dispensed Refills Start Date End Date Status cholecalciferol (for_VITAMIN D3) 2,000 Unit capsule Take 1 capsule by mouth daily. 0 08/10/2016 Active DOCOSAHEXANOIC ACID/EPA (FISH OIL ORAL) Take 1 capsule by mouth daily. 1000 mg daily as supplement. 0 12/31/2016 Active diphenhydrAMINE-acet aminophen (TYLENOL PM) 25-500 mg per tablet Take 1 tablet by mouth as needed. Insomnia 0 09/12/2013 Active aspirin (ASPIR-81 ORAL) Take 81 mg by mouth daily. 0 Active magnesium oxide (MAG-OX) 400 mg (241.3 mg magnesium) tablet Take 400 mg by mouth daily. 0 02/21/2020 Active nitroglycerin (NITROSTAT) 0.[address] 0.4 mg under the tongue as needed. 0 02/27/2020 Active zinc chelated 50 mg tablet tablet Take 50 mg by mouth daily. 0 Active ascorbic acid, vitamin C, (VITAMIN C) 1,000 mg tablet Take 1,000 mg by mouth daily. 0 Active atorvastatin (LIPITOR) 40 mg tablet Take 1 tablet (40 mg total) by mouth daily. 90 tablet 3 09/24/2021 Active potassium chloride (KLORCON/K-TAB) 10 mEq ER tablet Take 1 tablet (10 mEq total) by mouth daily. 90 tablet 3 09/24/2021 Active loperamide (IMODIUM A-D) 2 mg capsule Take 2 mg by mouth at bedtime as needed for diarrhea. 0 Active RITUXIMAB IV Infuse 1,000 mg into a venous catheter as directed. 1000 mg x 2, 2 weeks apart at [facility] on 06/10/2022 and 06/24/2022. 0 06/10/2022 Active melatonin 10 mg capsule Take 1 tablet by mouth as needed. 0 Active predniSONE (DELTASONE) 10 mg tablet Take 5 mg by mouth daily. 0 08/11/2022 Active leuprolide (ELIGARD 6 MONTH) 45 mg injection Lupron Depot (3 month) one shot every 3 months 0 Active sulfamethoxazole-tri methoprim (BACTRIM) 400-80 mg per tablet Take 1 tablet by mouth daily. 90 tablet 3 09/14/2022 Active HYDROmorphone (DILAUDID) 2 mg tablet Take 1 tablet by mouth. 0 01/21/2023 Active methylphenidate HCl (RITALIN) 5 mg tablet 0 01/28/2023 Active multivitamin (MULTIPLE VITAMINS ORAL) 1 tablet. 0 Active UNABLE TO FIND as needed. 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 Was previously unable to undergo stent placement due to recent gastric biopsies and duodenal polypectomy. Patient presented to ED 02/23/20 due to CP, but has been chest pain-free throughout this admission. He has been cleared from GI standpoint. Cardiac cath and PAULINA was placed in the mid LAD, potassium and magnesium were replaced as well as dual antiplatelet therapy x 1 year. -Continue ASA, statin, prn NTG -normotensive -denies cardiopulmonary symptoms -cardiologists in [place] discontinued Plavix Last Assessment & Plan: -Continue current treatment. Refills provided. Acquired Absence Of Other Genital Organs 019 Overview: Overview: -robotic-assisted radical prostatectomy by Dr. Duque July 01, 2004. Pathology revealed Devon 3 + 3, pT2c, N0, MX, R0 adenocarcinoma of the prostate. -He had biochemical recurrence and underwent salvage external beam radiation treatment that was completed November 29, 2013. 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 Started on prednisone (40 mg/day with taper) and methotrexate (25 mg/week). Started on Bactrim and folate as well. Tolerated the regimen well. His presentation included pleuritic chest pain for which he underwent imaging and chest CT showed multiple nodular consolidative opacities, some of which demonstrated cavitation. His c-ANCA and PR3 were positive. Bronchoscopy with BAL was performed, but TBLBx showed non-specific inflammatory changes. He was started on prednisone 40 mg/day (tapering dose) and methotrexate 25 mg/week and had radiographic and symptomatic improvement. Several weeks later, the BAL culture grew M. avium complex and M. gordonae, along with Penicillium and Cladosporum but the patient has remained asymptomatic from a pulmonary standpoint. February 2014: Prednisone on taper, currently 7.5 mg/day; Methotrexate at 25 mg/week. Symptoms resolved, chest CT improved. March 2014: Tapered off prednisone, continues on Methotrexate 25 mg/week. July 2014: Doing well, continuing on Methotrexate 25 mg/week. Nov 2014: Severe fatigue with methotrexate. Dose reduced to 20 mg/week, to be taken as 10 mg in AM and 10 mg in PM. July 2015: Doing well, continuing on methotrexate 20 mg/week. Since 2013, gradual decline in DLCO. ??He was enrolled in the lung cancer screening study in 2013 and has had regular follow-up CT chest studies since which showed some progression of mild non-specific interstitial changes??in stable centrilobular emphysematous changes. Therefore, MTX was replaced with AZA in October, but he did not tolerate AZA and was switched to MMF. ?? February 2021, at the time he did not have symptoms suggestive of recurrence of vasculitis, mycophenolate was held briefly due to leukopenia related to chemotherapy, his leukopenia recovered to mycophenolate was resumed, he continued then on low- dose prednisone and mycophenolate. He was started on Olaparib (300 mg b.i.d.) for metastatic prostate cancer, he follows with Dr. Mott in Hematology/oncology in the [facility]. He has been experiencing shortness of breath, headache, heart burn, joint pain, bruising, that he attributes to the Olaparib, he did not experience this prior the medication, they have been stable over the past few months, he decreased the dose with some improvement, he saw his oncologist who recommended to keep at this current dose (450 mg daily) ?? Last Assessment & Plan: Review of the laboratory test results shows normal markers of inflammation, macrocytosis on CBC likely related to mycophenolate, the rest of his metabolic profile is within normal range, chest x-ray overall unchanged. His ANCA titer is still pending. ?? He was advised to reach out to his Hematology-Oncology provider given macrocytosis in the setting of metastatic prostate cancer in current use of Olaparib. ?? He can continue on the current dose of prednisone 10 mg daily and Mycophenolate 1000 mg daily along with bactrim till his next follow up appointment with repeat PFTs in 6 months from now. ?? Cullen's Esophagus Personal History 05/16/2014 Overview: 02/2020 Last EGD showed: prominent gastric folds that were soft and multiple biopsies were taken. Mild erosive gastritis. Duodenal polyp in the fourth portion which was hot snared. Currently taking pantoprazole but none in the last few months. Asymptomatic Last Assessment & Plan: Continue pantoprazole. Advised to take in the morning on an empty stomach with a full glass of water 30-60 minutes prior to his first meal. Nodules Pulmonary Multiple 12/26/2013 Loss Hearing Sensorineural Bilateral 12/09/2011 Overview: Wears bilateral hearing aids Primary Malignant Neoplasm Of Prostate 4 Rising Prostate Specific Ant igen Following Treatment For Malignant Cancer Of Prostate 12/05/2003 Overview: -PSA began to rise again in July 2014. Lupron was initiated until Oct 2014. -PSA became detectible Dec 2015. -Lupron restarted July 2016 then a holiday in Nov 2016 -July 2017 PSA was elevated and Lupron was again given -PSA trended up at 15.6 on July 2018 when Lupron was initiated. - November 22, 2018:??PSA 35.5??ng/ml. Choline PET scan revealed choline avid lymph nodes in the retroperitoneum all the way up to the level of the kidneys. ??In addition,??patient??had??mediastinal and hilar lymph nodes that appeared??to be choline avid and possibly consistent with metastatic prostate cancer.Dr. Vicente advised the patient to??undergo abdominal MRI??to rule our any??evidence of liver metastases.? -December 13, 2018:??MRI was negative for any evidence of liver metastases. ??Dr. Vicente recommended he continue on??Lupron therapy??every 3 months??with the addition of??Zytiga with prednisone. ?? -March 09, 2019: PSA 2.7 ng/ml.??Imaging demonstrated a positive response to treatment therapy. ??He was recommended to continue on androgen deprivation therapy and Zytiga with prednisone??as prescribed.? -May 23, 2019: PSA 2.1 ng/ml. ?? - August 09, 2019: PSA 1.9 ng/ml.?C11 PET choline scan does reveal resolution or improvement in abdominal pelvic lymph nodes. ??Patient continues to have stable low level choline avid lymph nodes within the chest. ?? - November 09, 2019: PSA 1.9 ng/ml.?Imaging remain stable with no evidence of progression. ??Patient was recommended to continue on androgen deprivation therapy as well as Zytiga and prednisone. ?? -??March 06, 2020: ??PSA 5.9 ng/mL. ??C11 PET choline scan does reveal interval compression fracture of L5 vertebral body with increased choline uptake, which could result represent tumor involvement or possibly insufficiency fracture with just inflammation. There is also mildly choline avid mediastinal and hilar nodes which are more likely reactive. ??Also seen is stable appearance of left external iliac and aortocaval nodes which are only mildly choline avid. ?? -??June 05, 2020: ??PSA 4.9 ng/mL. ??C11 choline PET scan does not reveal clear site of prostate cancer progression or recurrence. Patient has benign L5 compression fracture.?Recommend the patient continue with 3 month Lupron??injections??and Zytiga. ? - August 29, 2020: PSA 8.5 ng/ml. Imaging demonstrated no??convincing??evidence??for metabolically active recurrent/residual disease. Stable symmetric hilar mediastinal uptake. ?? -September 20, 2020: ??Patient underwent PSMA PET scan. Innumerable intensely PSMA avid bone lesions and retroperitoneal lymph nodes suggestive of metastatic disease.?Patient was recommended to proceed with chemohormonal therapy.?September 2020 Guardant 360??noted + KAYE, candidate for Olaparib. ??TMB of >18, noting a candidate for pembrolizumab? -December 19, 2020: PSA 19.8 ng/mL.??PSA 11/29/20 locally was 28.3 ng/mL.?C11 PET choline scan does suggest numerous PSMA tracer avid skeletal metastases on previous imaging do not show pooling obtained today. ??None of lymph node metastases previously demonstrated on PSMA have choline tracer uptake today. ??There are several new tiny pulmonary nodules too small for characterization. ??At least two of previously seen PSMA positive skeletal metastases show only faint choline uptake previously are identified today.?Patient has received three cycles of carboplatin plus docetaxel chemotherapy through Dr. Mott at [facility]. ??Notably, patient does have high tumor mutation burden and make him a candidate for pembrolizumab as well as KAYE??mutation which makes??him candidate for Olaparib.? -??January??2020: ??Completed 3 additional cycles of carboplatin plus docetaxel under direction of Dr. Mott. ?? -February 21, 2021: ??PSA 8.8 ng/mL. ??C11 PET choline scan continued??to note decrease in choline avid osseous lesions. ??Decrease in his prior right mid lobe pulmonary nodule to 3 mm from prior 6 mm and along the major fissure measuring 6 mm from prior 1 cm. ??No new choline avid lesions.?Recommended to continue on androgen deprivation therapy and revisit with Dr. Mott to discuss treatment with??Olaparib or Keytruda secondary to his Guardant 360 testing results. ?? -February 28, 2021: initiated Olaparib??300 mg BID ?? -June 25, 2021: PSA 10.5 ng/ml.??Alk phosphatase and liver enzymes were within normal limits. ??Imaging was unchanged with mild uptake in the right sternum and midthoracic vertebral body. ??No new choline evidence of metastatic disease. ??Dr. Vicente recommended he continue on androgen deprivation therapy and Olaparib. ??When he returns, he will undergo a PSMA scan to determine if he could potentially be treated with Lutetium 177. ? - September 23, 2021: PSA 9.6 ng/mL. His PSMA scan demonstrates multiple PSMA avid osseous metastasis with a PSMA expression score of 2. He continues on Olaparib. Of note, shortly after starting Olaparib last February, he developed multiple side effects including headaches, nausea, back pain, lightheadedness. ??He decreased his dose to 1 tablet in the morning and two in the evening instead of 2 tablets twice daily. ?? Hypertension Essential Primary 11/30/2003 Hyperlipidemia 11/30/2002 Overview: Images from the original note were not included. Atorvastatin 40 mg. Tolerating well. Lipids 09/23/2021 9:45 AM CHOLESTEROL 161 TRIGLYCERIDES 155 HDL 76 Last Assessment & Plan: Continue current treatment. Refill provided. Dependence Nicotine 11/30/2002 Resolved Problems Problem Noted Date Diagnosed Date Resolved Date Asymmetry Breast 08/06/2017 08/11/2019 Smoking Tobacco Use Personal History 08/06/2017 08/08/2018 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 Encounters Date Type Department Care Team Description 04/22/2023 Clinical Communication Department of Radiation Oncology in [address] [address] Gurwinder Tejeda M.D. 04/21/2023 12:29 PM [facility] - 04/21/2023 8:13 PM [facility] Hospital Encounter Department of Radiation Oncology in [address] [address] Gurwinder Tejeda M.D. Secondary Malignant Neoplasm Bone (HCC) 04/21/2023 12:29 PM [facility] Encounter Department of Radiation Oncology in [address] [address] Gurwinder Tejeda M.D. 04/20/2023 11:46 AM [facility] Hospital Encounter Department of Radiation Oncology in [address] [address] Gurwinder Tejeda M.D. 04/19/2023 12:30 PM [facility] Encounter Department of Radiation Oncology in [address] [address] Gurwinder Tejeda M.D. 04/16/2023 4:34 PM [facility] Encounter Department of Radiation Oncology in [address] [address] Gurwinder Tejeda M.D. 04/13/2023 1:30 PM [facility] - 04/13/2023 3:56 PM [facility] Hospital Encounter Department of Radiation Oncology in [address] [address] Gurwinder Tejeda M.D. Primary Malignant Neoplasm Of Prostate (HCC); Rising Prostate Specific Antigen Following Treatment For Malignant Cancer Of Prostate 04/13/2023 12:42 PM [facility] - 04/13/2023 1:29 PM [facility] Hospital Encounter Department of Radiation Oncology in [address] [address] Gurwinder Tejeda M.D. Primary Malignant Neoplasm Of Prostate (HCC) (Primary Dx); Secondary Malignant Neoplasm Bone (HCC) 04/12/2023 Clinical Communication Department of Urology in [address] [address] Sushant Vicente M.D. Follow-up Orders 04/12/2023 Orders Only Department of Radiation Oncology in [address] [address] Florecita Starks APRN, C.N.P., D.N.P. Primary Malignant Neoplasm Of Prostate (HCC) (Primary Dx); Rising Prostate Specific Antigen Following Treatment For Malignant Cancer Of Prostate 04/09/2023 11:52 AM [facility] - 04/09/2023 11:59 PM [facility] Hospital Encounter Department of Radiology in [address] [phone] Florecita Starks APRN, C.N.P., D.N.P. Primary Malignant Neoplasm Of Prostate (HCC); Secondary Malignant Neoplasm Bone (HCC); Rising Prostate Specific Antigen Following Treatment For Malignant Cancer Of Prostate Discharge Disposition: Home or Self Care 04/07/2023 Clinical Communication Department of Radiation Oncology in [address] [address] Gurwinder Tejeda M.D. 04/06/2023 9:19 AM [facility] - 04/06/2023 2:23 PM [facility] Hospital Encounter Department of Radiation Oncology in [address] [address] Gurwinder Tejeda M.D. Rising Prostate Specific Antigen Following Treatment For Malignant Cancer Of Prostate (Primary Dx); Primary Malignant Neoplasm Of Prostate (HCC); Secondary Malignant Neoplasm Bone (HCC) 03/31/2023 Clinical Communication Department of Radiation Oncology in [address] [address] Gurwinder Tejeda M.D. 03/10/2023 Clinical Communication Division of Pulmonary Medicine in [place], [place] [address] [place] [address] Carson Fletcher M.D. Lab Monitoring (Vasculitis) 03/09/2023 4:00 PM [facility] Office Visit Division of Pulmonary Medicine in [place], [place] [address] [place] [address] Carson Fletcher M.D. 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 Secondary Malignant Neoplasm Bone (HCC) 02/24/2023 1:36 PM [facility] Hospital Encounter Department of Radiation Oncology in [address] [address] Gurwinder Tejeda M.D. Discharge Disposition: Home or Self Care 02/24/2023 Documentation Department of Radiation Oncology in [address] [address] Gurwinder Tejeda M.D. 02/19/2023 12:17 PM [facility] - 02/19/2023 4:24 PM [facility] Hospital Encounter Department of Radiation Oncology in [address] [address] Gurwinder Tejeda M.D. Secondary Malignant Neoplasm Bone (HCC) (Primary Dx); Primary Malignant Neoplasm Of Prostate (HCC) 02/18/2023 12:03 PM [facility] - 02/18/2023 11:59 PM [facility] Hospital Encounter Department of Radiology, [facility], in [place], [place] [address] [place] [address] Kassie Cash P.A.-C., M.S. Rising Prostate Specific Antigen Following Treatment For Malignant Cancer Of Prostate; Secondary Malignant Neoplasm Bone (HCC) Discharge Disposition: Home or Self Care 02/18/2023 10:00 AM [facility] Office Visit Department of Urology in [place], [place] [address] [place] [address] Sushant Vicente M.D. Primary Malignant Neoplasm Of Prostate (HCC) (Primary Dx) 02/18/2023 Orders Only Department of Radiation Oncology in [address] [address] Gurwinder Tejeda M.D. Secondary Malignant Neoplasm Bone (HCC) (Primary Dx) 02/17/2023 9:57 AM [facility] - 02/17/2023 12:03 PM [facility] Hospital Encounter Department of Radiation Oncology in [address] [address] Gurwinder Tejeda M.D. Secondary Malignant Neoplasm Bone (HCC) (Primary Dx); Primary Malignant Neoplasm Of Prostate (HCC) 02/15/2023 1:03 PM [facility] - 02/15/2023 11:59 PM [facility] Hospital Encounter Department of Laboratory Medicine in [address] [address] Carson Fletcher M.D. 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 Phone Call 02/15/2023 Clinical Communication Division of Pulmonary Medicine in [place], [place] [address] [place] [phone] Carson Fletcher M.D. 02/09/2023 3:25 PM [facility] Ancillary Procedure Department of Radiology in [place], [place] [address] [place] [phone] Kallie Rosales APRN, C.N.Hiwot., M.S. Primary Malignant Neoplasm Of Prostate (HCC) 02/05/2023 3:28 PM [facility] - 02/05/2023 4:58 PM [facility] Hospital Encounter Department of Radiation Oncology in [address] [address] Gurwinder Tejeda M.D. Secondary Malignant Neoplasm Bone (HCC) 02/05/2023 3:01 PM [facility] - 02/05/2023 3:27 PM [facility] Hospital Encounter Department of Radiation Oncology in [address] [address] Gurwinder Tejeda M.D. Discharge Disposition: Home or Self Care 02/04/2023 8:30 AM [facility] Clinical Communication Virtual Review in [place], [place] [address] [place] [address] 02/01/2023 3:00 PM [facility] - 02/07/2023 1:09 PM [facility] Hospital Encounter Department of Radiation Oncology in [address] [address] Gurwinder Tejeda M.D. Secondary Malignant Neoplasm Bone (HCC) 02/01/2023 1:26 PM [facility] - 02/04/2023 3:07 PM [facility] Hospital Encounter Department of Radiation Oncology in [address] [address] Gurwinder Tejeda M.D. Rising Prostate Specific Antigen Following Treatment For Malignant Cancer Of Prostate (Primary Dx); Secondary Malignant Neoplasm Bone (HCC) 01/28/2023 Orders Only Department of Radiation Oncology in [place], [place] [address] [place] [address] Gurwinder Tejeda M.D. Secondary Malignant Neoplasm Bone (HCC) (Primary Dx) from Last 3 Months Immunizations Name Administration Dates Next Due H1N1 All Forms 03/13/2009 H1N1 Inj 03/13/2009 HZV (ZOSTAVAX) 12/19/2011,03/23/2011 Influenza Split 12/16/2015, 5,11/20/2013,2009,01/04/2008 Influenza TIV (IM) 12/24/2009,12/12/2008 Influenza, Injectable, Quadrivalent 01/20/2021 Influenza, Quadrivalent, Adj uvanted, Preservative Free 01/03/2020 Influenza, Seasonal, Injectable 12/12/2008,01/06 Influenza, Unspecified 02/07/2022,2021,12/20/2020,2018,01/02/2018,12/20/2016,11/23/2016,1 ,05/03/2014,03/22/2014, 013,12/20/2012,12/21/2011,11/20/2009, PCV13 03/25/2017,08/10/2016,12/12/2014 PPSV23(Discontinued) 03/22/2011,12/01/2010,12/12 Pneumococcal Conjugate(PCV), Unspecified 03/22/2017 RZV (SHINGRIX) 09/24/2021(Deferred: Other - Will get locally at home) SARS-COV-2 (COVID-19) - MODERNA(Discontinued) 06/30/2021,06/01/2020,05/05/2020 Td (Adult), adsorbed 11/30/2003 Td Preservative Free (TENIVA C, DECAVAC) 02/25/2010 Td, (Adult) Unspecified 03/22/2010 Tdap 09/19/2012,03/22/2012,03/22/2011 Zoster, Unspecified 09/24/2021(Deferred: Other),08/29/2020(Deferred: Other) influenza high dose (65 year s or older) (PF) 12/20/2018,01/05/2017,12/17/2015,2015,12/20/2014,11/20/2014,12/04/2013,0 11/20/2013 Social History Tobacco Use Types Packs/Day Years Used Date Smoking Tobacco: Some Days Cigarettes 0.3 30 Passive Smoke Exposure: Past Smokeless Tobacco: Never Tobacco Cessation:Ready to Q uit: Not Asked; Counseling Given: Not Answered Alcohol Use Standard Drinks/Week Comments Yes 2 (1 standard drink = 0.6 oz pur e alcohol) [facility] [employer] Answer Date Recorded In the past 12 months has e [employer], gas, oil, or water [place] threatened to shut off services in your home? No 04/03/2023 Humiliation, Afraid, Rape, and Kick questionnair e Answer Date Recorded Within the last year, have y ou been afraid of your partner or ex-partner? No 02/03/2022 Within the last year, have y ou been humiliated or emotionally abused in other ways by your partner or ex-partner? No Within the last year, have y ou been kicked, hit, slapped, or otherwise physically hurt by your partner or ex-partner? No 02/03/2022 Within the last year, have y ou been raped or forced to have any kind of sexual activity by your partner or ex-partner? No 02/03/2022 Social Connection and Isolat ion Panel [NHANES] Answer Date Recorded In a typical week, how many times do you talk on the phone with family, friends, or neighbors? More than three times a week 02/03/2022 How often do you get togethe r with friends or relatives? Once a week 02/03/2022 How often do you attend chur or oriental orthodox services? Patient declined 02/03/2022 Do you belong to any clubs o r organizations such as anabaptism groups, unions, fraternal or athletic groups, or school groups? Patient declined 02/03/2022 How often do you attend meet ings of the clubs or organizations you belong to? More than 4 times per year 02/03/2022 Are you , , di vorced, , never , or living with a partner? 02/03/2022 AUDIT-C Answer Date Recorded Q1: How often do you have a drink containing alcohol? 4 or more times a week 02/03/2022 Q2: How many drinks containi ng alcohol do you have on a typical day when you are drinking? 1 or 2 Q3: How often do you have si x or more drinks on one occasion? Never 02/03/2022 Overall Financial Resource Strain (CARDIA) Answe r Date Recorded How hard is it for you to pa y for the very basics like food, housing, medical care, and heating? Not very hard 02/03/2022 PHQ-2 Answer Date Recorded PHQ-2 Score 2 09/24/2021 [facility] - Occupational Stress Questionnaire Answer Date Recorded Do you feel stress - tense, restless, nervous, or anxious, or unable to sleep at night because your mind is troubled all the time - these days? Only a little 02/03/2022 Exercise Vital Sign Answer Date Recorde d On average, how many days pe r week do you engage in moderate to strenuous exercise (like a brisk walk)? 0 days 04/03/2023 On average, how many minutes do you engage in exercise at this level? 0 min 04/03/2023 Hunger Vital Sign Answer Date Recorded Within the past 12 months, y ou worried that your food would run out before you got the money to buy more. Never true 04/03/19 24 Within the past 12 months, t he food you bought just didn't last and you didn't have money to get more. Never true 04/03/2023 PRAPARE - Transportation Answer Date Re corded In the past 12 months, has l ack of transportation kept you from medical appointments or from getting medications? No 03/22 In the past 12 months, has l ack of transportation kept you from meetings, work, or from getting things needed for daily living? No 04/03/2023 Nutrition Answer Date Recorded Nutrition: EVOO Fat Source No 04/03 On average, how many serving s of fruits and vegetables do you eat per day (serving size is equal to 1 cup or approximately the size of a tennis ball)? 0-2 04/03/2023 Dental Answer Date Recorded Dental: Regular Dentist Yes 02/04/20 Employment Answer Date Recorded Employment status Retired 04/03/2023 Housing Stability Answer Date Recorded What is your living situation today? I have a [facility] place to live 04/03/2023 Education Answer Date Recorded What is the highest level of school you have completed or the highest degree you have received? 12th grade 08/29/2020 Sex and Gender Information Value Date Recorded Sex Assigned at Male 08/03/2017 10:59 AM CDT Gender Identity Male 08/03/2017 10:59 AM CDT Sexual Orientation Straight 08/03/2017 10 :59 AM CDT Last Filed Vital Signs Vital Sign Reading Time Taken Comments Blood Pressure 117/56 04/21/2023 1:03 PM COMBO WELDER Pulse 88 04/21/2023 1:03 PM COMBO WELDER Temperature 36.6 ??C (97.9 ??F) 04/21/2023 1:03 PM CS T Respiratory Rate 20 06/24/2022 2:07 PM CDT Oxygen Saturation 97% 12/22/2022 1:50 PM CDT Inhaled Oxygen Concentration - - Weight 81.8 kg (180 lb 5.4 oz) 04/21/2023 1:03 P M COMBO WELDER Height 170.4 cm (5' 7.09) 03/09/2023 3:43 PM CS T Body Mass Index 28.17 03/09/2023 3:43 PM COMBO WELDER Plan of Treatment Upcoming Encounters Date Type Department Care Team (Late st Contact Info) Description 04/26/2023 3:15 PM COMBO WELDER Appointment Department of Radiation Oncology in [place], [place] [address] [place] [phone] Gurwinder Tejeda M.D. [address] [place] [phone] 05/03/2023 1:00 PM COMBO WELDER Appointment Department of Laboratory Medicine in [address] [phone] Carson Fletcher M.D. [address] [place] [phone] 05/03/2023 1:10 PM COMBO WELDER Appointment Department of Laboratory Medicine in [address] [phone] Carson Fletcher M.D. [address] [place] [phone] 2023 2:30 PM COMBO WELDER Virtual Visit Division of Pulmonary Medicine in [place], [place] [address] [place] [phone] Carson Fletcher M.D. [address] [place] [phone] 07/05/2023 11:20 AM CDT Lab Department of Laboratory Medicine and Pathology, [facility] in [place], [place] [address] [place] [phone] Kallie Rosaels APRN, C.N.P., M.S. [address] [place] [phone] 07/05/2023 12:45 PM CDT Appointment Department of Radiology, [facility], in [place], [place] [address] [place] [phone] Kallie Rosales APRN, C.N.P., M.S. [address] [place] [phone] 07/06/2023 11:30 AM CDT Office Visit Department of Urology in [place], [place] [address] [place] [phone] Sushant Vicente M.D. [address] [place] [phone] Health Maintenance Due Date Last Done Comments Hepatitis C Screening 1945 Tobacco Cessation counseling 1945 Zoster Vaccines (1 of 2) 02/13/2012 12/19/2011, 04/2011 DTaP,Tdap,and Td Vaccines (4 - Td or Tdap) 09/19/2022 09/19/2012, 03/22/2012, 03/22/2011, Additional history exists COVID-19 Vaccine ( - season) 2022 01/08/2022, 06/30/2021, 01/20/2021, Additional history exists Influenza Vaccine (#1) 2022 2, 12/20/2021, 01/20/2021, Additional history exists Depression Screening (Annual PHQ-2) 03/22/2023 Fall Risk Screen (Annual) 03/22/2023 Office Visit for Blood Pressure Check / Re-check 12/23/2023 12/22/2022, 08/11/2019 Colonoscopy Discontinued 08/11/2016, 02/20, 02/23/2005 Colorectal Cancer Surveillance Discontinued Pneumococcal vaccine (65+ years) Completed 03/25/2017, 03/22/2017, 08/10/2016, Additional history exists CT Colonography Discontinued Cologuard Discontinued HPV Vaccines Aged Out No longer eligi ble based on patient's age to complete this topic Medical Devices Implanted Type Area Chip Mucker Device Identifier Shelf Expiration Date Model / Serial / Lot Knee Implant- [id number] Implanted:Qty: 1 on 04/21/2017 Knee Implant Knee Stent Other-03/22/2020 Implanted:03/2020 (Quantity not on file) Stent Other Heart Procedures Procedure Name Priority Date/Time Associated Diagnosis Comments ARIA DAILY TREATMENT INFORMATION Routine 04/21/2023 12:45 PM COMBO WELDER ARIA DAILY TREATMENT INFORMATION Routine 04/20/2023 12:15 PM COMBO WELDER ARIA DAILY TREATMENT INFORMATION Routine 04/19/2023 12:54 PM COMBO WELDER ARIA COURSE COMPLETE TREATMENT INFORMATION Routine 04/16/2023 6:23 PM COMBO WELDER ARIA DAILY TREATMENT INFORMATION Routine 04/16/2023 5:26 PM COMBO WELDER INITIAL RAD ONC TREATMENT PLANNING CT SIMULATION Routine 04/13/2023 1:30 PM COMBO WELDER Primary Malignant Neoplasm Of Prostate (HCC) Rising Prostate Specific Antigen Following Treatment For Malignant Cancer Of Prostate PET CT SKULL TO THIGH PSMA RAD - Routine (most inpatients and all outpatients) 04/09/2023 1:46 PM COMBO WELDER Primary Malignant Neoplasm Of Prostate (HCC) Secondary Malignant Neoplasm Bone (HCC) Rising Prostate Specific Antigen Following Treatment For Malignant Cancer Of Prostate ARIA COURSE COMPLETE TREATMENT INFORMATION Routine 03/05/2023 4:00 PM COMBO WELDER ARIA COURSE COMPLETE TREATMENT INFORMATION Routine 02/24/2023 2:39 PM COMBO WELDER ARIA COURSE COMPLETE TREATMENT INFORMATION Routine 02/24/2023 2:39 PM COMBO WELDER ARIA DAILY TREATMENT INFORMATION Routine 02/24/2023 2:39 PM COMBO WELDER MR MUSCULOSKELETAL PELVIS WITHOUT AND WITH IV CONTRAST RAD - Routine (most inpatients and all outpatients) 02/18/2023 1:29 PM COMBO WELDER Rising Prostate Specific Antigen Following Treatment For Malignant Cancer Of Prostate Secondary Malignant Neoplasm Bone (HCC) URINALYSIS WITH MICROSCOPIC Routine 02/15/2023 1:20 PM COMBO WELDER 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) CYTOPLASMIC NEUTROPHIL ABS, S Routine 02/15/2023 1:10 PM COMBO WELDER MORPHOLOGY EVALUATION Routine 02/15/2023 1:10 PM COMBO WELDER PROSTATE-SPECIFIC AG (PSA) DIAGNOSTIC, S Routine 02/15/2023 1:10 PM COMBO WELDER Primary Malignant Neoplasm Of Prostate (HCC) CD20 ON B CELLS, B Routine 02/15/2023 1:10 PM COMBO WELDER 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) URIC ACID, S/P Routine 02/15/2023 1:10 PM COMBO WELDER 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) PHOSPHORUS (INORGANIC), S Routine 02/15/2023 1:10 PM COMBO WELDER 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) GLUCOSE, FASTING, S/P Routine 02/15/2023 1:10 PM COMBO WELDER 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) SEDIMENTATION RATE, B Routine 02/15/2023 1:10 PM COMBO WELDER 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) C-REACTIVE PROTEIN (CRP), S/P Routine 02/15/2023 1:10 PM COMBO WELDER 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) COMPREHENSIVE METABOLIC PANEL, S/P Routine 02/15/2023 1:10 PM COMBO WELDER 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) CBC WITH DIFFERENTIAL, B Routine 02/15/2023 1:10 PM COMBO WELDER 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) ANCA VASCULITIS PANEL, S Routine 02/15/2023 1:10 PM COMBO WELDER 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) INTERPRETATION OF OUTSIDE NM PET SCAN RAD - Routine (most inpatients and all outpatients) 02/09/2023 3:26 PM COMBO WELDER Primary Malignant Neoplasm Of Prostate (HCC) ARIA COURSE COMPLETE TREATMENT INFORMATION Routine 02/05/2023 3:52 PM COMBO WELDER ARIA COURSE COMPLETE TREATMENT INFORMATION Routine 02/05/2023 3:52 PM COMBO WELDER ARIA DAILY TREATMENT INFORMATION Routine 02/05/2023 3:52 PM COMBO WELDER ARIA COURSE COMPLETE TREATMENT INFORMATION Routine 02/04/2023 4:23 PM COMBO WELDER ARIA COURSE COMPLETE TREATMENT INFORMATION Routine 02/04/2023 4:13 PM COMBO WELDER INITIAL RAD ONC TREATMENT PLANNING CT SIMULATION Routine 02/01/2023 3:00 PM COMBO WELDER Secondary Malignant Neoplasm Bone (HCC) from Last 3 Months Results * Aria Daily Treatment Information (04/21/2023 12:45 PM COMBO WELDER) Only the most recent of6 resultswithin the time period is included. Course ID [id number] HUBBARD ARIA Course Start Date 04/13/2023 06:47 COMBO WELDER HUBBARD ARIA First Treatment Date 04/16/2023 17:24 COMBO WELDER HUBBARD ARIA Last Treatment Date 04/21/2023 12:45 COMBO WELDER HUBBARD ARIA Treatment Elapsed Days 5 HUBBARD ARIA Reference Point [id number] SterRib HUBBARD ARIA Dosage Given to Date cGy 1600 HUBBARD ARIA Session Dosage Given 400 HUBBARD ARIA Plan ID [id number] HUBBARD ARIA Fractions Treated to Date 4 HUBBARD ARIA Planned Total Fractions 5 HUBBARD ARIA Prescribed Dose Per Fraction 400 HUBBARD ARIA Prescription Dose in cGy 2000 HUBBARD ARIA Plan Primary Reference Point [id number] SterRib HUBBARD ARIA 04/21/2023 12:4 5 PM COMBO WELDER Provider Not In System RADIATION ONCOLOG Y ORDERABLES HUBBARD PARVEENA na * Aria Course Complete Treatment Information (04/16/2023 6:23 PM COMBO WELDER) Only the most recent of8 resultswithin the time period is included. Course ID planning HUBBARD ARIA Course Start Date 02/04/2023 15:15 COMBO WELDER HUBBARD ARIA Course End Date 04/16/2023 18:22 COMBO WELDER HUBBARD ARIA Reference Point [id number] HUBBARD ARIA Dosage Given to Date cGy 0 HUBBARD ARIA Reference Point [id number] RibsL HUBBARD ARIA Dosage Given to Date cGy 0 HUBBARD ARIA Plan ID [id number] HUBBARD ARIA Fractions Treated to Date 0 HUBBARD ARIA Planned Total Fractions 1 HUBBARD ARIA Prescribed Dose Per Fraction 800 HUBBARD ARIA Prescription Dose in cGy 800 HUBBARD ARIA Plan Primary Reference Point [id number] HUBBARD ARIA Plan ID [id number] HUBBARD ARIA Fractions Treated to Date 0 HUBBARD ARIA Planned Total Fractions 1 HUBBARD ARIA Prescribed Dose Per Fraction 800 HUBBARD ARIA Prescription Dose in cGy 800 HUBBARD ARIA Plan Primary Reference Point [id number] HUBBARD ARIA Plan ID [id number] HUBBARD ARIA Fractions Treated to Date 0 HUBBARD ARIA Planned Total Fractions 1 HUBBARD ARIA Prescribed Dose Per Fraction 800 HUBBARD ARIA Prescription Dose in cGy 800 HUBBARD ARIA Plan Primary Reference Point [id number] RibsL HUBBARD ARIA Plan ID [id number] HUBBARD ARIA Fractions Treated to Date 0 HUBBARD ARIA Planned Total Fractions 1 HUBBARD ARIA Prescribed Dose Per Fraction 800 HUBBARD ARIA Prescription Dose in cGy 800 HUBBARD ARIA Plan Primary Reference Point [id number] RibsL HUBBARD ARIA 04/16/2023 6:23 PM COMBO WELDER Provider Not In System RADIATION ONCOLOG Y ORDERABLES Performing Organization Address City/[facility] Co de Phone Number STEVIE QUIÑONES na * Initial Rad Onc Treatment Planning CT Simulation (04/13/2023 1:30 PM COMBO WELDER) Only the most recent of2 resultswithin the time period is included. Narrative HUBBARD ARIA - 04/13/2023 1:30 PM COMBO WELDER Xiomara Browne, RTT ? 04/13/2023 ??2:13 PM Initial Rad Onc Treatment Planning CT Simulation Performed by: Gurwinder Tejeda M.D. Authorized by: Gurwinder Tejeda M.D. ?? Gurwinder Tejeda M.D. RADIATION ONCOLOGY ORDERABLES STEVIE QUIÑONES na * PET CT Skull to Thigh PSMA (04/09/2023 1:46 PM COMBO WELDER) Anatomical Region Laterality Modality Body, Nuclear Medicine PET R ST LOS, PET ARZ LOS, Nuclear Medicine PET FLA LOS, Nuclear Medicine N/A Positron Emission Tomography (PET) Impressions 04/09/2023 3:21 PM COMBO WELDER - Multifocal new intensely tracer avid osseous metastases since the prior study from 11/05/2022, allowing for differences in technique. miPSMA score: 3. -New mild tracer uptake in the right masseter muscle which could also be related to nonspecific focal myositis versus soft tissue metastasis. Narrative 04/09/2023 3:21 PM COMBO WELDER EXAM: PET CT SKULL TO THIGH PSMA COMPARISON: [place] PET/CT, 11/05/2022 and 08/03/2022. RADIOPHARMACEUTICAL/MEDS: Route: intravenous piflufolastat F 18 injection (PYLARIFY F-18),9.1 millicurie The patient reports no recent vaccinations. TECHNIQUE Approximately 70 minutes following IV tracer administration, positron emission tomography was performed from the vertex of the skull through the proximal thighs. Non-contrast helical CT imaging was performed over the same range without breath-hold for attenuation correction of PET images and anatomic correlation, but not for primary interpretation as it is not of standard diagnostic quality. Images were reviewed in the axial,coronal and sagittal planes. FINDINGS: Reference normal parotid gland SUV max is 13. Reference blood pool SUV max is 2. Reference normal liver parenchyma SUV max is 6. HEAD AND NECK: Physiologic tracer uptake in bilateral lacrimal glands, parotid and submandibular glands is noted. Nonspecific focal tracer uptake in the right masseter muscle with SUV max of 3.5. CHEST: Moderate lung emphysema, unchanged. Multifocal subpleural nodules throughout the lung with associated mild tracer uptake are not significantly changed, likely related to nonspecific inflammatory process. No new consolidative opacities. No pleural effusion. Unchanged size of multiple small mediastinal lymph nodes with no tracer uptake on the current exams.. No cardiomegaly. Unchanged coronary artery atherosclerotic calcification versus stents. ABDOMEN/PELVIS: Status post prostatectomy with no residual uptake in the prostatectomy bed. Small splenule in the left upper quadrant, unchanged. Physiologic tracer distribution in the liver, spleen, small bowel, kidneys and urinary bladder is noted. Sigmoid diverticulosis without acute diverticulitis. MUSCULOSKELETAL: Multifocal hypermetabolic tracer avid osseous metastases involving pelvic bones, sacrum, cervical, thoracic and lumbar vertebrae, sternum, multifocal bilateral rib lesions as well as left posterior calvaria sclerotic lesion with SUV max measuring up to 80 in the L1 vertebral body lesion. Procedure Note Fawad Santana M.B., Ayan, M.D. - 04/09/2023 EXAM: PET CT SKULL TO THIGH PSMA COMPARISON: [place] PET/CT, 11/05/2022 and 08/03/2022. RADIOPHARMACEUTICAL/MEDS: Route: intravenous piflufolastat F 18 injection (PYLARIFY F-18),9.1 millicurie The patient reports no recent vaccinations. TECHNIQUE Approximately 70 minutes following IV tracer administration, positronemission tomography was performed from the vertex of the skull through theproximal thighs. Non-contrast helical CT imaging was performed over thesame range without breath- hold for attenuation correction of PET images and anatomic correlation, but not forprimary interpretation as it is not of standard diagnostic quality. Imageswere reviewed in the axial,coronal and sagittal planes. FINDINGS: Reference normal parotid gland SUV max is 13. Reference blood pool SUV max is 2. Reference normal liver parenchyma SUV max is 6. HEAD AND NECK: Physiologic tracer uptake in bilateral lacrimal glands,parotid and submandibular glands is noted. Nonspecific focal tracer uptakein the right masseter muscle with SUV max of 3.5. CHEST: Moderate lung emphysema, unchanged. Multifocal subpleural nodulesthroughout the lung with associated mild tracer uptake are notsignificantly changed, likely related to nonspecific inflammatory process.No new consolidative opacities. No pleural effusion. Unchanged size of multiple small mediastinal lymph nodes with notracer uptake on the current exams.. No cardiomegaly. Unchanged coronaryartery atherosclerotic calcification versus stents. ABDOMEN/PELVIS: Status post prostatectomy with no residual uptake in theprostatectomy bed. Small splenule in the left upper quadrant, unchanged.Physiologic tracer distribution in the liver, spleen, small bowel, kidneysand urinary bladder is noted. Sigmoid diverticulosis without acute diverticulitis. MUSCULOSKELETAL: Multifocal hypermetabolic tracer avid osseous metastasesinvolving pelvic bones, sacrum, cervical, thoracic and lumbar vertebrae,sternum, multifocal bilateral rib lesions as well as left posteriorcalvaria sclerotic lesion with SUV max measuring up to 80 in the L1 vertebral body lesion. IMPRESSION: - Multifocal new intensely tracer avid osseous metastases since the priorstudy from 11/05/2022, allowing for differences in technique. miPSMA score:3. -New mild tracer uptake in the right masseter muscle which could also berelated to nonspecific focal myositis versus soft tissue metastasis. Florecita Starks APRN, C.N.P., D.N.P. IMG NM PROCEDURES * MR Musculoskeletal Pelvis without and with IV Contrast (02/18/2023 1:29 PM COMBO WELDER) Anatomical Region Laterality Modality Musculoskeletal, Musculoskel etal RST LOS, Musculoskeletal ARZ LOS, Muskuloskeletal FLA LOS N/A Magne tic Resonance 02/18/2023 12:4 6 PM COMBO WELDER Impressions 02/18/2023 3:42 PM COMBO WELDER 1. Multiple enhancing intramedullary lesions in the right ilium and sacrum with corresponding elevated PSMA expression on the prior PET/CT, compatible with osseous metastatic disease. 2. Multiple pelvic insufficiency fractures involving bilateral pubic bodies and irina and left acetabulum as described. Narrative 02/18/2023 3:42 PM COMBO WELDER EXAM: ??MR MUSCULOSKELETAL PELVIS WITHOUT AND WITH IV CONTRAST COMPARISON: ??Outside PSMA PET/CT 01/22/2023 FINDINGS: ??MRI pelvis without and with IV gadolinium performed at 3T. Multiple T1 hypointense, T2 hyperintense and intramedullary enhancing lesions involving the right ilium (series 17 image 9 and 16) and sacrum (for example series 17 image 15 and series 8 image 17) with corresponding avid PSMA expression on the prior PET/CT, compatible with osseous metastatic disease. The largest of these measures approximately 1.1 x 0.8 x 1.3 cm (series 8 image 9, series 14 image 7). As best appreciated on the oblique coronal T1 sequence, there are bilateral vertically oriented insufficiency fractures involving bilateral medial irina adjacent to the SI joints. There is corresponding patchy enhancement on the postcontrast sequence, but no discrete intramedullary mass to suggest underlying metastatic disease. Additional similar-appearing insufficiency fractures involving bilateral parasymphyseal pubic bodies (series 8 image 30). Linear T1 hypointense signal on the left acetabular roof (series 9 image 21) with prominent surrounding enhancing marrow edema. This is favored to represent an additional insufficiency fracture given the location, linear appearance on the T1 sequence and low PSMA expression on the prior PET/CT. 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 Mild tendinopathy and chronic low-grade partial tears of the gluteus minimus and medius tendons proximal hamstrings tendons bilaterally. Mild left greater than right iliopsoas bursopathy. Intramuscular edema within the bilateral medial adductor and obturator internus muscles, likely related to prior radiation therapy. Focal feathery intramuscular edema and enhancement within the peripheral right gluteus reji near the myotendinous junction (series 8 and 17 images 25), likely due to low-grade myotendinous strain. Multilevel lower lumbar degenerative disc disease and facet arthropathy. Moderate to advanced degenerative changes at the right greater than left sacroiliac joints. Postoperative changes of prior prostatectomy. No pelvic lymphadenopathy. Colonic diverticulosis. Procedure Note Jung Sweeney M.D. - 02/18/2023 EXAM: MR MUSCULOSKELETAL PELVIS WITHOUT AND WITH IV CONTRAST COMPARISON: Outside PSMA PET/CT 01/22/2023 FINDINGS: MRI pelvis without and with IV gadolinium performed at 3T. Multiple T1 hypointense, T2 hyperintense and intramedullary enhancinglesions involving the right ilium (series 17 image 9 and 16) and sacrum(for example series 17 image 15 and series 8 image 17) with correspondingavid PSMA expression on the prior PET/CT, compatible with osseous metastatic disease. The largest of thesemeasures approximately 1.1 x 0.8 x 1.3 cm (series 8 image 9, series 14image 7). As best appreciated on the oblique coronal T1 sequence, there arebilateral vertically oriented insufficiency fractures involving bilateralmedial irina adjacent to the SI joints. There is corresponding patchyenhancement on the postcontrast sequence, but no discrete intramedullary mass to suggest underlying metastatic disease.Additional similar-appearing insufficiency fractures involving bilateralparasymphyseal pubic bodies (series 8 image 30). Linear T1 hypointense signal on the left acetabular roof (series 9 image21) with prominent surrounding enhancing marrow edema. This is favored torepresent an additional insufficiency fracture given the location, linearappearance on the T1 sequence and low PSMA expression on the prior PET/CT. 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 Mild tendinopathy and chronic low-grade partial tears of the gluteusminimus and medius tendons proximal hamstrings tendons bilaterally. Mildleft greater than right iliopsoas bursopathy. Intramuscular edema within the bilateral medial adductor and obturatorinternus muscles, likely related to prior radiation therapy. Focalfeathery intramuscular edema and enhancement within the peripheral rightgluteus reji near the myotendinous junction (series 8 and 17 images 25), likely due to low-grade myotendinousstrain. Multilevel lower lumbar degenerative disc disease and facet arthropathy.Moderate to advanced degenerative changes at the right greater than leftsacroiliac joints. Postoperative changes of prior prostatectomy. No pelvic lymphadenopathy.Colonic diverticulosis. IMPRESSION: 1. Multiple enhancing intramedullary lesions in the right ilium and sacrumwith corresponding elevated PSMA expression on the prior PET/CT,compatible with osseous metastatic disease. 2. Multiple pelvic insufficiency fractures involving bilateral pubicbodies and irina and left acetabulum as described. Kassie Cash P.A.-C. M.S. IMG MRI PROCED URES * (ABNORMAL) Urinalysis with Microscopic: Urine, Midstream (02/15/2023 1:20 PM COMBO WELDER) Source Urine, Urine, Midstream 02/15/2023 1:20 PM COMBO WELDER CNFL Clarity Clear Clear 02/15/2023 1:23 PM COMBO WELDER CNFL Color Yellow 02/15/2023 1:23 PM COMBO WELDER CNFL Comment: ----REFERENCE VALUE---- Colorless Yellow Cinthia Blood Moderate(A) Negative 02/15/2023 1:23 PM COMBO WELDER CNFL Nitrite Negative Negative 02/15/2023 1:23 PM COMBO WELDER CNFL Leukocyte Esterase Negative Negative 02/15/2023 1:23 PM COMBO WELDER CNFL Protein 30(A) mg/dL 02/15/2023 1:23 PM COMBO WELDER CNFL Comment: ----REFERENCE VALUE---- Negative Trace Glucose Negative Negative mg/dL 02/15/2023 1:23 PM COMBO WELDER CNFL Ketones, QI(U) Trace(A) Negative mg/dL 02/15/2023 1:23 PM COMBO WELDER CNFL Bilirubin Small(A) Negative 02/15/2023 1:23 PM COMBO WELDER CNFL pH 5.5 5.0 - 8.0 02/15/2023 1:23 PM COMBO WELDER CNFL Specific Tasley 1.025 1.001 - 1.035 02/15/2023 1:23 PM COMBO WELDER CNFL Urobilinogen 0.2 0.2 - 1.0 mg/dL 02/15/2023 1:23 PM COMBO WELDER CNFL White Blood Cells None Seen /hpf 02/15/2023 1:40 PM COMBO WELDER CNFL Comment: ----REFERENCE VALUE---- Males: 0-3 Females: 0-10 Unknown: 0-10 Red Blood Cells 3-10(A) 0 - 2 /hpf 1:40 PM COMBO WELDER CNFL Dysmorphic Red Blood Cells <=25 <=25 % 02/15/2023 1:40 PM COMBO WELDER CNFL Mucus Present /hpf 02/15/2023 1:40 PM COMBO WELDER CNFL Squamous Cells Occ-3 /hpf 02/15/2023 1:40 PM COMBO WELDER CNFL Bacteria None Seen None Seen 02/15/2023 1:40 PM COMBO WELDER CNFL Urine (Urine, Midstream) 02/15/2023 1:20 PM COMBO WELDER 02/15/2023 1:20 PM COMBO WELDER Carson Fletcher M.D. LAB URINE ORDERABLES [facility] [address] [place] [address], [facility] CNFL [facility] [place] [address] * (ABNORMAL) Morphology Evaluation (02/15/2023 1:10 PM COMBO WELDER) RBC Morphology See Specific Findings 02/15/2023 2:13 PM COMBO WELDER CNFL PLT Morphology Normal 02/15/2023 2:13 PM COMBO WELDER CNFL PLT Estimate Adequate Adequate 02/15/2023 2:13 PM COMBO WELDER CNFL Anisocytosis Slight(A) 02/15/2023 2:13 PM COMBO WELDER CNFL Macrocytosis Marked(A) Not Seen 02/15/2023 2:13 PM COMBO WELDER CNFL Blood 02/15/2023 1:10 PM COMBO WELDER 02/15/2023 1:12 PM COMBO WELDER Carson Fletcher M.D. LAB BLOOD ADD-ON [facility] [address] [place] [id number], [facility] CNFL [facility] in [address] [address] * (ABNORMAL) CD20 on B Cells (02/15/2023 1:10 PM COMBO WELDER) CD45 Absolute 0.40(L) 1.00 - 3.33 thou/mcL 02/17/2023 2:57 PM COMBO WELDER SDSC %CD19 B-Cells 0(L) 4.6 - 22.1 % 02/17/2023 2:57 PM COMBO WELDER SDSC %CD20 B-Cells 0(L) 5.0 - 22.3 % 02/17/2023 2:57 PM COMBO WELDER SDSC CD19 Absolute 0(L) 56.6 - 417.4 cells/mcL 02/17/2023 2:57 PM COMBO WELDER SDSC CD20 Absolute 0(L) 74.4 - 441.1 cells/mcL 02/17/2023 2:57 PM COMBO WELDER SDSC Comment: ----ADDITIONAL INFORMATION---- Reference values implemented June 20, 2008. This test was developed using an analyte specific reagent. Its performance characteristics were determined by [facility] in a manner consistent with CLIA requirements. This test has not been cleared or approved by the U.S. Food and Drug Administration. Blood (Blood, Venous) 02/15/2023 1:10 PM COMBO WELDER 02/16/2023 8:27 AM COMBO WELDER Carson Fletcher M.D. LAB BLOOD ADD-ON [facility] [address] [place] [address] [facility] [address] [place] [address] [place] [address] * (ABNORMAL) ANCA (Antineutrophil Cytoplasmic Antibodies) Vasculitis Panel (02/15/2023 1:10 PM COMBO WELDER) Myeloperoxidase Ab, S <0.2 <0.4 (Negative ) U 02/16/2023 4:29 PM COMBO WELDER SDSC Proteinase 3 Ab (PR3), S 3.0(H) <0.4 (Negative ) U 02/16/2023 4:29 PM COMBO WELDER [facility] Comment:Interpretation: Posi tive (>=1.0) Blood (Blood, Venous) 02/15/2023 1:10 PM COMBO WELDER 02/16/2023 7:10 AM COMBO WELDER Carson Fletcher M.D. LAB BLOOD ADD-ON Performing Organization Address City/[facility]/ZIP Co de Phone Number [facility] [address] [place] [address] [facility] [address] [place] [address] * (ABNORMAL) Cytoplasmic Neutrophil Antibodies (02/15/2023 1:10 PM COMBO WELDER) Pathologist [facility] c-ANCA Positive 1:64(A) Negative 02/16/2023 11:01 PM COMBO WELDER SDS Perinuclear (P-ANCA) Negative Negative 02/16/2023 11:01 PM COMBO WELDER [facility] Comment: Positive for PR3 antibodies by solid-phase immunoassay and cANCA pattern by immunofluorescence. Consistent with ANCA-associated vasculitis, if compatible clinical features are present. ----ADDITIONAL INFORMATION---- This test was developed and its performance characteristics determined by [facility] in a manner consistent with CLIA requirements. This test has not been cleared or approved by the U.S. Food and Drug Administration. Blood 02/15/2023 1:10 PM COMBO WELDER 02/16/2023 5:31 PM COMBO WELDER Carson Fletcher M.D. LAB BLOOD ADD-ON Performing Organization Address City/[facility]/ZIP Co de Phone Number [facility] [address] [place] [address] [facility] [address] [place] [address] [place] [address] * (ABNORMAL) Sedimentation Rate (02/15/2023 1:10 PM COMBO WELDER) Pathologist [facility] Sedimentation Rate, B 26(H) 0 - 22 mm/1 h 02/15/2023 7:56 PM COMBO WELDER RDWG Blood (Blood, Venous) 02/15/2023 1:10 PM COMBO WELDER 02/15/2023 7:22 PM COMBO WELDER Carson Fletcher M.D. LAB BLOOD ADD-ON [facility] [address] [place] [address], [facility] RDWG [facility] [place] [address] [facility] [address] * (ABNORMAL) CBC with Differential, Blood (02/15/2023 1:10 PM COMBO WELDER) Hemoglobin 12.9(L) 13.2 - 16.6 g/dL 02/15/2023 2:13 PM COMBO WELDER CNFL Hematocrit 36.2(L) 38.3 - 48.6 % 02/15/2023 2:13 PM COMBO WELDER CNFL Erythrocytes 2.98(L) 4.35 - 5.65 x10(12)/L 02/15/2023 2:13 PM COMBO WELDER CNFL MCV 121.5(H) 78.2 - 97.9 fL 02/15/2023 2:13 PM COMBO WELDER CNFL RBC Distrib Width 14.3 11.8 - 14.5 % 02/15/2023 2:13 PM COMBO WELDER CNFL Platelet Count 142 135 - 317 x10(9)/L 02/15/2023 2:13 PM COMBO WELDER CNFL Leukocytes 6.6 3.4 - 9.6 x10(9)/L 02/15/2023 2:13 PM COMBO WELDER CNFL Neutrophils 5.52 1.56 - 6.45 x10(9)/L 02/15/2023 2:13 PM COMBO WELDER CNFL Lymphocytes 0.38(L) 0.95 - 3.07 x10(9)/L 02/15/2023 2:13 PM COMBO WELDER CNFL Monocytes 0.65 0.26 - 0.81 x10(9)/L 02/15/2023 2:13 PM COMBO WELDER CNFL Eosinophils 0.06 0.03 - 0.48 x10(9)/L 02/15/2023 2:13 PM COMBO WELDER CNFL Basophils <0.04 0.01 - 0.08 x10(9)/L 02/15/2023 2:13 PM COMBO WELDER CNFL Blood (Blood, Venous) 02/15/2023 1:10 PM COMBO WELDER 02/15/2023 1:12 PM COMBO WELDER Carson Fletcher M.D. LAB BLOOD ADD-ON [address] [address], [address] [address] * CRP (C-Reactive Protein) (02/15/2023 1:10 PM COMBO WELDER) C-Reactive Protein (CRP), P 4.2 <5.0 mg/L 02/15/2023 1:33 PM COMBO WELDER CNFL Blood (Blood, Venous) 02/15/2023 1:10 PM COMBO WELDER 02/15/2023 1:12 PM COMBO WELDER Carson Fletcher M.D. LAB BLOOD ADD-ON Performing Organization Address City/[facility]/ZIP Co de Phone Number [facility] [address] [place] [phone], [address] [address] * (ABNORMAL) Uric Acid (02/15/2023 1:10 PM COMBO WELDER) Uric Acid, P 3.3(L) 3.7 - 8.0 mg/dL 02/15/2023 1:33 PM COMBO WELDER CNFL Blood (Blood, Venous) 02/15/2023 1:10 PM COMBO WELDER 02/15/2023 1:12 PM COMBO WELDER Carson Fletcher M.D. LAB BLOOD ADD-ON [facility] [address] [place] [address], [address] [address] * (ABNORMAL) PSA (Prostate-Specific Antigen), Diagnostic (02/15/2023 1:10 PM COMBO WELDER) [facility] Prostate-Specific Ag 21.2(H) <=6.5 ng/mL 02/15/2023 8:02 PM COMBO WELDER [facility] Comment: ----ADDITIONAL INFORMATION---- The testing method is an electrochemiluminescence assay manufactured by [employer] and performed on the Modular or Lana system. Values obtained with different assay methods or kits may be different and cannot be used interchangeably. Test results cannot be interpreted as absolute evidence for the presence or absence of malignant disease. Blood (Blood, Venous) 02/15/2023 1:10 PM COMBO WELDER 02/15/2023 7:22 PM COMBO WELDER Sherin Garcia APRNNNaeem., M.S. LAB BLOOD ADD-ON Performing Organization Address City/[facility]/ZIP Co de Phone Number [facility] [address] [place] [address], [facility] RDWG [facility] in [address] [address] * Phosphorus Inorganic (02/15/2023 1:10 PM COMBO WELDER) [facility] Phosphorus (Inorganic), P 3.7 2.5 - 4.5 mg/dL 02/15/2023 1:33 PM COMBO WELDER [facility] Blood (Blood, Venous) 02/15/2023 1:10 PM COMBO WELDER 02/15/2023 1:12 PM COMBO WELDER Carson Fletcher M.D. LAB BLOOD ADD-ON Performing Organization Address [facility]/ZIP Co de Phone Number [facility] [address] [place] [phone], [facility] in [address] [address] * (ABNORMAL) Glucose, Fasting (02/15/2023 1:10 PM COMBO WELDER) [facility] Glucose, P 117(H) 70 - 100 mg/dL 02/15/2023 1:29 PM COMBO WELDER CNFL Last Intake 10 hr 02/15/2023 1:12 PM COMBO WELDER CNFL Blood (Blood, Venous) 02/15/2023 1:10 PM COMBO WELDER 02/15/2023 1:12 PM COMBO WELDER Carson Fletcher M.D. LAB BLOOD NON ADD-ON [facility] [address] [place] [address], [facility] CNFL [facility] [place] [address] * Comprehensive Metabolic Panel (02/15/2023 1:10 PM COMBO WELDER) Potassium, P 3.9 3.6 - 5.2 mmol/L 02/15/2023 1:33 PM COMBO WELDER CNFL Sodium, P 139 135 - 145 mmol/L 02/15/2023 1:33 PM COMBO WELDER CNFL Chloride, P 101 98 - 107 mmol/L 02/15/2023 1:33 PM COMBO WELDER CNFL Bicarbonate, P 27 22 - 29 mmol/L 02/15/2023 1:33 PM COMBO WELDER CNFL Anion Gap, P 11 7 - 15 02/15/2023 1:33 PM COMBO WELDER CNFL BUN (Blood Urea Nitrogen), P 16 8 - 24 mg/dL 02/15/2023 1:33 PM COMBO WELDER CNFL Creatinine 0.98 0.74 - 1.35 mg/dL 02/15/2023 1:33 PM COMBO WELDER CNFL Estimated GFR (eGFR) 78 >=60 mL/min/BS A 02/15/2023 1:33 PM COMBO WELDER CNFL Comment: Estimated GFR calculated using the 2020 CKD_EPI creatinine equation. Calcium, Total, P 9.2 8.8 - 10.2 mg/dL 02/15/2023 1:33 PM COMBO WELDER CNFL Glucose, P CANCELED mg/dL 02/15/2023 1:12 PM COMBO WELDER CNFL Comment: Duplicate test request. Result canceled by the ancillary. Protein, Total, P 6.6 6.3 - 7.9 g/dL 02/15/2023 1:33 PM COMBO WELDER CNFL Albumin, P 4.1 3.5 - 5.0 g/dL 02/15/2023 1:33 PM COMBO WELDER CNFL Aspartate Aminotransferase (AST), P 19 8 - 48 U/L 02/15/2023 1:33 PM COMBO WELDER CNFL Alkaline Phosphatase, P 120 40 - 129 U/L 02/15/2023 1:33 PM COMBO WELDER CNFL Alanine Aminotransferase (ALT), P 13 7 - 55 U/L 02/15/2023 1:33 PM COMBO WELDER CNFL Bilirubin, Total, P 0.4 0.0 - 1.2 mg/dL 02/15/2023 1:33 PM COMBO WELDER CNFL Blood (Blood, Venous) 02/15/2023 1:10 PM COMBO WELDER 02/15/2023 1:12 PM COMBO WELDER Carson Fletcher M.D. LAB BLOOD ADD-ON Performing Organization Address City/State/[facility] Co de Phone Number [facility] [address] [place] [address], [facility] CNFL [facility] [place] [address] * Interpretation of Outside NM PET Scan (02/09/2023 3:26 PM COMBO WELDER) Anatomical Region Laterality Modality Nuclear Medicine PET RST LOS , Nuclear Medicine ARZ LOS, Nuclear Medicine FLA LOS, Nuclear Medicine, Other, Neuroradiology ARZ LOS, Neuroradiology FLA LOS, Neuroradiology RST LOS, Body N/A Nuclear Medicine 02/15/2023 8:12 AM COMBO WELDER Impressions 02/15/2023 4:57 PM COMBO WELDER Intensely radiotracer avid metastases as detailed in the findings. Narrative 02/15/2023 4:57 PM COMBO WELDER EXAM: ??INTERPRETATION OF OUTSIDE NM PET SCAN dated 01/22/2023. TECHNIQUE: ??Outside PET scan dated 01/22/2023 from vertex to proximal thighs following intravenous injection of F-18 Pylarify with low dose, unenhanced, free breathing, nondiagnostic quality CT images obtained for anatomic co-registration and attenuation correction purposes only. COMPARISON: ??Gallium-68 gozetotide PET exam dated 04/27/2022. Correlation is made to the carbon-11 choline PET scan dated 11/05/2022. INDICATION: Prostate cancer. Subsequent treatment strategy. FINDINGS: ?? Direct SUV comparisons between PSMA and choline cannot possible since these agents have different mechanisms of action. Screen captures of relevant findings have been placed into the electronic jacket for the outside examination dated 01/22/2023. Several skeletal lesions are evident. ---For example, a site of activity in the right side of C3 has an SUV max of 27.9. There was some choline activity with an SUV max of 4.2 in this location on 11/05/2022. ---For example, a site of activity in the right side of T3 has an SUV maximum of 28.6. There was some choline activity with an SUV max of 7.3 in this location on 11/05/2022. ---For example, activity in the L1 vertebral body has an SUV maximum of 71.5. There was some choline activity with an SUV max of 5.1 in this location on 11/05/2022. Faint PSMA activity with an SUV max of 2.5 was present on 06/25/2022. ---For example, a site of activity in the right posterior iliac bone has an SUV max of 26.9. There was some choline activity with an SUV max of 5.8 in this location on 11/05/2022. ---For example, site of activity in the sacrum has an SUV max of 43.1. There was some choline activity with an SUV max of 3.0 in this location on 11/05/2022. ---For example, a site of activity in the manubrium has an SUV max of 24.5. There was some choline activity with an SUV max of 4 in this location on 11/05/2022. PSMA activity with an SUV max of 3.4 was present here on 04/27/2022. ---For example, there is activity in the right T7 posterior elements with an SUV maximum of 44.4. A few lymph nodes are identified. For example, a left common iliac lymph node has an SUV max of 3.7. For example, a left retroperitoneal node has an SUV max of 5.0. For example, a right retroperitoneal node has an SUV max is 7.7. Noted on low dose, unenhanced, free breathing, nondiagnostic quality CT images obtained for anatomic co-registration and attenuation correction purposes only: Pulmonary emphysematous and fibrotic changes. Demineralized appearance of the skeleton. Musculoskeletal degenerative changes. Multiple tiny sclerotic opacities in the skeleton. Sclerotic deformity of the right pubic body. Small fat-containing periumbilical and inguinal hernias. Coronary artery and other vascular calcifications. Prostatectomy. Colonic diverticula. Procedure Note German Mitchell M.D., Ph.D. - 02/15/2023 EXAM: INTERPRETATION OF OUTSIDE NM PET SCAN dated 01/22/2023. TECHNIQUE: Outside PET scan dated 01/22/2023 from vertex to proximalthighs following intravenous injection of F-18 Pylarify with low dose,unenhanced, free breathing, nondiagnostic quality CT images obtained foranatomic co-registration and attenuation correction purposes only. COMPARISON: Gallium-68 gozetotide PET exam dated 04/27/2022. Correlationis made to the carbon-11 choline PET scan dated 11/05/2022. INDICATION: Prostate cancer. Subsequent treatment strategy. FINDINGS: Direct SUV comparisons between PSMA and choline cannot possible sincethese agents have different mechanisms of action. Screen captures of relevant findings have been placed into the electronicjacket for the outside examination dated 01/22/2023. Several skeletal lesions are evident. ---For example, a site of activity in the right side of C3 has an SUV maxof 27.9. There was some choline activity with an SUV max of 4.2 in thislocation on 11/05/2022. ---For example, a site of activity in the right side of T3 has an SUVmaximum of 28.6. There was some choline activity with an SUV max of 7.3 inthis location on 11/05/2022. ---For example, activity in the L1 vertebral body has an SUV maximum of71.5. There was some choline activity with an SUV max of 5.1 in thislocation on 11/05/2022. Faint PSMA activity with an SUV max of 2.5 waspresent on 06/25/2022. ---For example, a site of activity in the right posterior iliac bone hasan SUV max of 26.9. There was some choline activity with an SUV max of 5.8in this location on 11/05/2022. ---For example, site of activity in the sacrum has an SUV max of 43.1.There was some choline activity with an SUV max of 3.0 in this location on11/05/2022. ---For example, a site of activity in the manubrium has an SUV max of24.5. There was some choline activity with an SUV max of 4 in thislocation on 11/05/2022. PSMA activity with an SUV max of 3.4 was presenthere on 04/27/2022. ---For example, there is activity in the right T7 posterior elements withan SUV maximum of 44.4. A few lymph nodes are identified. For example, a left common iliac lymphnode has an SUV max of 3.7. For example, a left retroperitoneal node hasan SUV max of 5.0. For example, a right retroperitoneal node has an SUVmax is 7.7. Noted on low dose, unenhanced, free breathing, nondiagnostic quality CTimages obtained for anatomic co-registration and attenuation correctionpurposes only: Pulmonary emphysematous and fibrotic changes. Demineralizedappearance of the skeleton. Musculoskeletal degenerative changes. Multiple tiny sclerotic opacities inthe skeleton. Sclerotic deformity of the right pubic body. Smallfat-containing periumbilical and inguinal hernias. Coronary artery andother vascular calcifications. Prostatectomy. Colonic diverticula. IMPRESSION: Intensely radiotracer avid metastases as detailed in the findings. Sherin Garcia APRNNNaeem., M.S. [facility] NM PROCEDURES from Last 3 Months Additional Health Concerns Infection Onset Date Last Indicated Protective Environment 07/31/2022 3 Care Teams Animal Rides Manager Relationship Specialty Start Date End Date Elsewhere, Pcp PCP - General Family Medicine 12/29/19
--- OUTSIDE RECORDS SUMMARY | 2023-04-25 18:58 | XMS_ITS | Referral Summary ---
Author Name Unknown Organization [facility] Address [address] [place] [address] Care Team Providers Care Tribal Council Member Name Role Phone Elsewhere, Pcp Primary Care Provider Unavailabl e Source Comments Patient records contain information from all sites at [facility]. For routine questions regarding patient records, call [phone] during business hours, M-F 8:00 AM - 5:00 PM Central Time. Record requests for emergency care only can be directed to [phone] at any time.[facility] Encounters Date Type Department Care Team Description 04/22/2023 Clinical Communication Department of Radiation Oncology in [address] [phone] Gurwinder Tejeda M.D. 04/21/2023 12:29 PM [facility] - 04/21/2023 8:13 PM [facility] Hospital Encounter Department of Radiation Oncology in [address] [phone] Gurwinder Tejeda M.D. Secondary Malignant Neoplasm Bone (HCC) 04/21/2023 12:29 PM LEAD FURNACE OPERATOR Hospital Encounter Department of Radiation Oncology in [address] [phone] Gurwinder Tejeda M.D. 04/20/2023 11:46 AM LEAD FURNACE OPERATOR Hospital Encounter Department of Radiation Oncology in [address] [phone] Gurwinder Tejeda M.D. 04/19/2023 12:30 PM LEAD FURNACE OPERATOR Hospital Encounter Department of Radiation Oncology in [address] [address] Gurwinder Tejeda M.D. 04/16/2023 4:34 PM LEAD FURNACE OPERATOR Hospital Encounter Department of Radiation Oncology in [address] [phone] Gurwinder Tejeda M.D. 04/13/2023 1:30 PM LEAD FURNACE OPERATOR - 04/13/2023 3:56 PM LEAD FURNACE OPERATOR Hospital Encounter Department of Radiation Oncology in [address] [address] Gurwinder Tejeda M.D. Primary Malignant Neoplasm Of Prostate (HCC); Rising Prostate Specific Antigen Following Treatment For Malignant Cancer Of Prostate 04/13/2023 12:42 PM LEAD FURNACE OPERATOR - 04/13/2023 1:29 PM LEAD FURNACE OPERATOR Hospital Encounter Department of Radiation Oncology in [address] [address] Gurwinder Tejeda M.D. Primary Malignant Neoplasm Of Prostate (HCC) (Primary Dx); Secondary Malignant Neoplasm Bone (HCC) 04/12/2023 Clinical Communication Department of Urology in [address] [phone] Sushant Vicente M.D. Follow-up Orders 04/12/2023 Orders Only Department of Radiation Oncology in [address] [phone] Florecita Starks APRN, C.N.P., D.N.P. Primary Malignant Neoplasm Of Prostate (HCC) (Primary Dx); Rising Prostate Specific Antigen Following Treatment For Malignant Cancer Of Prostate 04/09/2023 11:52 AM LEAD FURNACE OPERATOR - 04/09/2023 11:59 PM LEAD FURNACE OPERATOR Hospital Encounter Department of Radiology in [address] [address] Florecita Starks APRN, C.N.P., D.N.P. Primary Malignant Neoplasm Of Prostate (HCC); Secondary Malignant Neoplasm Bone (HCC); Rising Prostate Specific Antigen Following Treatment For Malignant Cancer Of Prostate Discharge Disposition: Home or Self Care 04/07/2023 Clinical Communication Department of Radiation Oncology in [address] [phone] Gurwinder Tejeda M.D. 04/06/2023 9:19 AM LEAD FURNACE OPERATOR - 04/06/2023 2:23 PM LEAD FURNACE OPERATOR Hospital Encounter Department of Radiation Oncology in [address] [phone] Gurwinder Tejeda M.D. Rising Prostate Specific Antigen Following Treatment For Malignant Cancer Of Prostate (Primary Dx); Primary Malignant Neoplasm Of Prostate (HCC); Secondary Malignant Neoplasm Bone (HCC) 03/31/2023 Clinical Communication Department of Radiation Oncology in [address] [address] Gurwinder Tejeda M.D. 03/10/2023 Clinical Communication Division of Pulmonary Medicine in [place], [place] [address] [place] [address] Carson Fletcher M.D. Lab Monitoring (Vasculitis) 03/09/2023 4:00 PM LEAD FURNACE OPERATOR Office Visit Division of Pulmonary Medicine in [place], [place] [address] [place] [phone] Carson Fletcher M.D. 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 02/24/2023 1:37 PM LEAD FURNACE OPERATOR - 02/24/2023 6:35 PM LEAD FURNACE OPERATOR Hospital Encounter Department of Radiation Oncology in [address] [address] Gurwinder Tejeda M.D. Secondary Malignant Neoplasm Bone (HCC) 02/24/2023 1:36 PM LEAD FURNACE OPERATOR Hospital Encounter Department of Radiation Oncology in [address] [address] Gurwinder Tejeda M.D. Discharge Disposition: Home or Self Care 02/19/2023 12:17 PM LEAD FURNACE OPERATOR - 02/19/2023 4:24 PM LEAD FURNACE OPERATOR Hospital Encounter Department of Radiation Oncology in [place], [place] [address] [place] [phone] Gurwinder Tejeda M.D. Secondary Malignant Neoplasm Bone (HCC) (Primary Dx); Primary Malignant Neoplasm Of Prostate (HCC) 02/18/2023 Orders Only Department of Radiation Oncology in [place], [place] [address] [place] [phone] Gurwinder Tejeda M.D. Secondary Malignant Neoplasm Bone (HCC) (Primary Dx) 02/18/2023 10:00 AM LEAD FURNACE OPERATOR Office Visit Department of Urology in [place], [place] [address] [place] [address] Sushant Vicente M.D. Primary Malignant Neoplasm Of Prostate (HCC) (Primary Dx) 02/18/2023 12:03 PM LEAD FURNACE OPERATOR - 02/18/2023 11:59 PM LEAD FURNACE OPERATOR Hospital Encounter Department of Radiology, [facility] in [place], [place] [address] [place] [phone] Kassie Cash P.A.-C., M.S. Rising Prostate Specific Antigen Following Treatment For Malignant Cancer Of Prostate; Secondary Malignant Neoplasm Bone (HCC) Discharge Disposition: Home or Self Care 02/17/2023 9:57 AM LEAD FURNACE OPERATOR - 02/17/2023 12:03 PM LEAD FURNACE OPERATOR Hospital Encounter Department of Radiation Oncology in [place], [place] [address] [place] [address] Gurwinder Tejeda M.D. Secondary Malignant Neoplasm Bone (HCC) (Primary Dx); Primary Malignant Neoplasm Of Prostate (HCC) 02/15/2023 Clinical Communication Department of Urology in [place], [place] [address] [place] [phone] Sushant Vicente M.D. Phone Call 02/15/2023 Clinical Communication Division of Pulmonary Medicine in [place], [place] [address] [place] [phone] Carson Fletcher M.D. 02/15/2023 1:03 PM LEAD FURNACE OPERATOR - 02/15/2023 11:59 PM LEAD FURNACE OPERATOR Hospital Encounter Department of Laboratory Medicine in [address] [phone] Carson Fletcher M.D. 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 Primary Malignant Neoplasm Of Prostate (HCC) 02/01/2023 3:00 PM LEAD FURNACE OPERATOR - 02/07/2023 1:09 PM LEAD FURNACE OPERATOR Hospital Encounter Department of Radiation Oncology in [address] [address] Gurwinder Tejeda M.D. Secondary Malignant Neoplasm Bone (HCC) 02/05/2023 3:28 PM LEAD FURNACE OPERATOR - 02/05/2023 4:58 PM LEAD FURNACE OPERATOR Hospital Encounter Department of Radiation Oncology in [address] [phone] Gurwinder Tejeda M.D. Secondary Malignant Neoplasm Bone (HCC) 02/05/2023 3:01 PM LEAD FURNACE OPERATOR - 02/05/2023 3:27 PM LEAD FURNACE OPERATOR Hospital Encounter Department of Radiation Oncology in [address] [phone] Gurwinder Tejeda M.D. Discharge Disposition: Home or Self Care 02/04/2023 8:30 AM LEAD FURNACE OPERATOR Clinical Communication Virtual Review in [place], [place] 200 [facility] [place] [address] 02/01/2023 1:26 PM LEAD FURNACE OPERATOR - 02/04/2023 3:07 PM LEAD FURNACE OPERATOR Hospital Encounter Department of Radiation Oncology in [place], [place] [address] [place] [phone] Gurwinder Tejeda M.D. Rising Prostate Specific Antigen Following Treatment For Malignant Cancer Of Prostate (Primary Dx); Secondary Malignant Neoplasm Bone (HCC) 01/28/2023 Orders Only Department of Radiation Oncology in [place], [place] [address] [place] [address] Gurwinder Tejeda M.D. Secondary Malignant Neoplasm Bone (HCC) (Primary Dx) from Last 3 Months Allergies Active Allergy Reactions Criticality Noted Date [...] mg x 2, 2 weeks apart at [facility] on 06/10/2022 and 06/24/2022. 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 Refills provided. Acquired Absence Of Other Genital Organs 019 Overview: Overview: -robotic-assisted radical prostatectomy by Dr. Duque July 01, 2004. Pathology revealed Downs 3 + 3, pT2c, N0, MX, R0 adenocarcinoma of the prostate. -He had biochemical recurrence and underwent salvage external beam radiation treatment that was completed November 29, 2013. 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 Mott in Hematology/oncology in the [facility]. He has been experiencing shortness of [...] plus docetaxel chemotherapy through Dr. Mott at [facility]. ??Notably, patient does have high tumor [...] 08/06/2017 08/11/19 20 Elevated Glucose 08/11/2016 08/08/2018 Immunizations Name Administration Dates Next Due H1N1 [...] drink = 0.6 oz pur e alcohol) [facility] [employer] Answer Date Recorded In the past 12 months has e [employer], gas, oil, or water [employer] threatened to shut off services in your [...] How often do you attend chur or evangelical services? Patient declined 02/03/2022 Do you belong to any clubs o r organizations such as baptist groups, unions, fraternal or athletic groups, or [...] Answer Date Recorded PHQ-2 Score 2 09/24/2021 [facility] - [...] your living situation today? I have a [facility] place to live 04/03/2023 Education Answer [...] Comments Blood Pressure 117/56 04/21/2023 1:03 PM LEAD FURNACE OPERATOR Pulse 88 04/21/2023 1:03 PM LEAD FURNACE OPERATOR Temperature 36.6 ??C (97.9 ??F) 04/21/2023 1:03 PM CS T Respiratory Rate 20 06/24/2022 2:07 PM CDT Oxygen Saturation 97% 12/22/2022 1:50 PM CDT Inhaled Oxygen Concentration - - Weight 81.8 kg (180 lb 5.4 oz) 04/21/2023 1:03 P M LEAD FURNACE OPERATOR Height 170.4 cm (5' 7.09) 03/09/2023 3:43 PM CS T Body Mass Index 28.17 03/09/2023 3:43 PM LEAD FURNACE OPERATOR Plan of Treatment Upcoming Encounters Date Type Department Care Team (Late st Contact Info) Description 04/26/2023 3:15 PM LEAD FURNACE OPERATOR Appointment Department of Radiation Oncology in [place], [place] [address] [place] [phone] Gurwinder Tejeda M.D. [address] [place] [address] 05/03/2023 1:00 PM LEAD FURNACE OPERATOR Appointment Department of Laboratory Medicine in [address] [phone] Carson Fletcher M.D. [address] [place] [phone] 05/03/2023 1:10 PM LEAD FURNACE OPERATOR Appointment Department of Laboratory Medicine in [address] [phone] Carson Fletcher M.D. [address] [place] [phone] 2023 2:30 PM LEAD FURNACE OPERATOR Virtual Visit Division of Pulmonary Medicine in [place], [place] [address] [place] [phone] Carson Fletcher M.D. [address] [place] [phone] 07/05/2023 11:20 AM CDT Lab Department of Laboratory Medicine and Pathology, [facility] in [place], [place] [address] [place] [phone] Kallie Rosales APRN, C.N.P., M.S. [address] [place] [phone] 07/05/2023 12:45 PM CDT Appointment Department of Radiology, [facility], in [place], [place] [address] [place] [phone] Kallie Rosales APRN, C.N.P., M.S. [address] [place] [phone] 07/06/2023 11:30 AM CDT Office Visit Department of Urology in [place], [place] [address] [place] [phone] Sushant Vicente M.D. [address] [place] [phone] Medical Devices Implanted Type Area Ct Mri Technologist Device Identifier Shelf Expiration Date Model / Serial / Lot Knee Implant- [id number] Implanted:Qty: 1 on 04/21/2017 Knee Implant Knee Stent Other-03/22/2020 Implanted:01/0 03/2020 (Quantity not on file) Stent Other Heart Procedures Procedure Name Priority Date/Time Associated Diagnosis Comments ARIA DAILY TREATMENT INFORMATION Routine 04/21/2023 12:45 PM LEAD FURNACE OPERATOR ARIA DAILY TREATMENT INFORMATION Routine 04/20/2023 12:15 PM LEAD FURNACE OPERATOR ARIA DAILY TREATMENT INFORMATION Routine 04/19/2023 12:54 PM LEAD FURNACE OPERATOR ARIA COURSE COMPLETE TREATMENT INFORMATION Routine 04/16/2023 6:23 PM LEAD FURNACE OPERATOR ARIA DAILY TREATMENT INFORMATION Routine 04/16/2023 5:26 PM LEAD FURNACE OPERATOR INITIAL RAD ONC TREATMENT PLANNING CT SIMULATION Routine 04/13/2023 1:30 PM LEAD FURNACE OPERATOR Primary Malignant Neoplasm Of Prostate (HCC) Rising Prostate Specific Antigen Following Treatment For Malignant Cancer Of Prostate PET CT SKULL TO THIGH PSMA RAD - Routine (most inpatients and all outpatients) 04/09/2023 1:46 PM LEAD FURNACE OPERATOR Primary Malignant Neoplasm Of Prostate (HCC) Secondary Malignant Neoplasm Bone (HCC) Rising Prostate Specific Antigen Following Treatment For Malignant Cancer Of Prostate ARIA COURSE COMPLETE TREATMENT INFORMATION Routine 03/05/2023 4:00 PM LEAD FURNACE OPERATOR ARIA COURSE COMPLETE TREATMENT INFORMATION Routine 02/24/2023 2:39 PM LEAD FURNACE OPERATOR ARIA COURSE COMPLETE TREATMENT INFORMATION Routine 02/24/2023 2:39 PM LEAD FURNACE OPERATOR ARIA DAILY TREATMENT INFORMATION Routine 02/24/2023 2:39 PM LEAD FURNACE OPERATOR MR MUSCULOSKELETAL PELVIS WITHOUT AND WITH IV CONTRAST RAD - Routine (most inpatients and all outpatients) 02/18/2023 1:29 PM LEAD FURNACE OPERATOR Rising Prostate Specific Antigen Following Treatment For Malignant Cancer Of Prostate Secondary Malignant Neoplasm Bone (HCC) URINALYSIS WITH MICROSCOPIC Routine 02/15/2023 1:20 PM LEAD FURNACE OPERATOR 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) CYTOPLASMIC NEUTROPHIL ABS, S Routine 02/15/2023 1:10 PM LEAD FURNACE OPERATOR MORPHOLOGY EVALUATION Routine 02/15/2023 1:10 PM LEAD FURNACE OPERATOR PROSTATE-SPECIFIC AG (PSA) DIAGNOSTIC, S Routine 02/15/2023 1:10 PM LEAD FURNACE OPERATOR Primary Malignant Neoplasm Of Prostate (HCC) CD20 ON B CELLS, B Routine 02/15/2023 1:10 PM LEAD FURNACE OPERATOR 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) URIC ACID, S/P Routine 02/15/2023 1:10 PM LEAD FURNACE OPERATOR 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) PHOSPHORUS (INORGANIC), S Routine 02/15/2023 1:10 PM LEAD FURNACE OPERATOR 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) GLUCOSE, FASTING, S/P Routine 02/15/2023 1:10 PM LEAD FURNACE OPERATOR 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) SEDIMENTATION RATE, B Routine 02/15/2023 1:10 PM LEAD FURNACE OPERATOR 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) C-REACTIVE PROTEIN (CRP), S/P Routine 02/15/2023 1:10 PM LEAD FURNACE OPERATOR 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) COMPREHENSIVE METABOLIC PANEL, S/P Routine 02/15/2023 1:10 PM LEAD FURNACE OPERATOR 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) CBC WITH DIFFERENTIAL, B Routine 02/15/2023 1:10 PM LEAD FURNACE OPERATOR 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) ANCA VASCULITIS PANEL, S Routine 02/15/2023 1:10 PM LEAD FURNACE OPERATOR 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) INTERPRETATION OF OUTSIDE NM PET SCAN RAD - Routine (most inpatients and all outpatients) 02/09/2023 3:26 PM LEAD FURNACE OPERATOR Primary Malignant Neoplasm Of Prostate (HCC) ARIA COURSE COMPLETE TREATMENT INFORMATION Routine 02/05/2023 3:52 PM LEAD FURNACE OPERATOR ARIA COURSE COMPLETE TREATMENT INFORMATION Routine 02/05/2023 3:52 PM LEAD FURNACE OPERATOR ARIA DAILY TREATMENT INFORMATION Routine 02/05/2023 3:52 PM LEAD FURNACE OPERATOR ARIA COURSE COMPLETE TREATMENT INFORMATION Routine 02/04/2023 4:23 PM LEAD FURNACE OPERATOR ARIA COURSE COMPLETE TREATMENT INFORMATION Routine 02/04/2023 4:13 PM LEAD FURNACE OPERATOR INITIAL RAD ONC TREATMENT PLANNING CT SIMULATION Routine 02/01/2023 3:00 PM LEAD FURNACE OPERATOR Secondary Malignant Neoplasm Bone (HCC) from Last 3 Months Results * Aria Daily Treatment Information (04/21/2023 12:45 PM LEAD FURNACE OPERATOR) Only the most recent of6 resultswithin the time period is included. Course ID [id number] HUBBARD ARIA Course Start Date 04/13/2023 06:47 LEAD FURNACE OPERATOR HUBBARD ARIA First Treatment Date 04/16/2023 17:24 LEAD FURNACE OPERATOR HUBBARD ARIA Last Treatment Date 04/21/2023 12:45 LEAD FURNACE OPERATOR HUBBARD ARIA Treatment Elapsed Days 5 HUBBARD ARIA Reference Point [id number] SterRib HUBBARD ARIA Dosage Given to Date cGy 1600 HUBBARD ARIA Session Dosage Given 400 HUBBARD ARIA Plan ID [id number] HUBBARD ARIA Fractions Treated to Date 4 HUBBARD ARIA Planned Total Fractions 5 HUBBARD ARIA Prescribed Dose Per Fraction 400 HUBBARD ARIA Prescription Dose in cGy 2000 HUBBARD ARIA Plan Primary Reference Point [id number] SterRib HUBBARD ARIA 04/21/2023 12:4 5 PM LEAD FURNACE OPERATOR Provider Not In System RADIATION ONCOLOG Y ORDERABLES STEVIE SAINIA na * Aria Course Complete Treatment Information (04/16/2023 6:23 PM LEAD FURNACE OPERATOR) Only the most recent of8 resultswithin the time period is included. Course ID planning HUBBARD ARIA Course Start Date 02/04/2023 15:15 LEAD FURNACE OPERATOR HUBBARD ARIA Course End Date 04/16/2023 18:22 LEAD FURNACE OPERATOR HUBBARD ARIA Reference Point [id number] HUBBARD ARIA Dosage Given to Date cGy 0 HUBBARD ARIA Reference Point [id number] RibsL HUBBARD ARIA Dosage Given to Date cGy 0 HUBBARD ARIA Plan ID [id number] HUBBARD ARIA Fractions Treated to Date 0 HUBBARD ARIA Planned Total Fractions 1 HUBBARD ARIA Prescribed Dose Per Fraction 800 HUBBARD ARIA Prescription Dose in cGy 800 HUBBARD ARIA Plan Primary Reference Point [id number] HUBBARD ARIA Plan ID [id number] m HUBBARD ARIA Fractions Treated to Date 0 HUBBARD ARIA Planned Total Fractions 1 HUBBARD ARIA Prescribed Dose Per Fraction 800 HUBBARD ARIA Prescription Dose in cGy 800 HUBBARD ARIA Plan Primary Reference Point [id number] HUBBARD ARIA Plan ID [id number] HUBBARD ARIA Fractions Treated to Date 0 HUBBARD ARIA Planned Total Fractions 1 HUBBARD ARIA Prescribed Dose Per Fraction 800 HUBBARD ARIA Prescription Dose in cGy 800 HUBBARD ARIA Plan Primary Reference Point [id number] RibsL HUBBARD ARIA Plan ID [id number] HUBBARD ARIA Fractions Treated to Date 0 HUBBARD ARIA Planned Total Fractions 1 HUBBARD ARIA Prescribed Dose Per Fraction 800 HUBBARD ARIA Prescription Dose in cGy 800 HUBBARD ARIA Plan Primary Reference Point [id number] RibsL HUBBARD ARIA 04/16/2023 6:23 PM LEAD FURNACE OPERATOR Provider Not In System RADIATION ONCOLOG Y ORDERABLES STEVIE QUIÑONES na * Initial Rad Onc Treatment Planning CT Simulation (04/13/2023 1:30 PM LEAD FURNACE OPERATOR) Only the most recent of2 resultswithin the time period is included. Narrative HUBBARD ARIA - 04/13/2023 1:30 PM LEAD FURNACE OPERATOR Xiomara Browne, RTT ? 04/13/2023 ??2:13 PM Initial Rad Onc Treatment Planning CT Simulation Performed by: Gurwinder Tejeda M.D. Authorized by: Gurwinder Tejeda M.D. ?? Gurwinder Tejeda M.D. RADIATION ONCOLOGY ORDERABLES STEVIE QUIÑONES na * PET CT Skull to Thigh PSMA (04/09/2023 1:46 PM LEAD FURNACE OPERATOR) Anatomical Region Laterality Modality Body, Nuclear Medicine PET R ST LOS, PET ARZ LOS, Nuclear Medicine PET FLA LOS, Nuclear Medicine N/A Positron Emission Tomography (PET) Impressions 04/09/2023 3:21 PM LEAD FURNACE OPERATOR - Multifocal new intensely tracer avid osseous metastases since the prior study from 11/05/2022, allowing for differences in technique. miPSMA score: 3. -New mild tracer uptake in the right masseter muscle which could also be related to nonspecific focal myositis versus soft tissue metastasis. Narrative 04/09/2023 3:21 PM LEAD FURNACE OPERATOR EXAM: PET CT SKULL TO THIGH PSMA [...] body lesion. Procedure Note Fawad Santana M.B., Lillie Botello - 04/09/2023 EXAM: PET CT SKULL TO [...] tissue metastasis. Florecita Starks APRN, C.N.P., D.N.P. IM NM PROCEDURES * MR Musculoskeletal Pelvis without and with IV Contrast (02/18/2023 1:29 PM LEAD FURNACE OPERATOR) Anatomical Region Laterality Modality Musculoskeletal, Musculoskel etal RST LOS, Musculoskeletal ARZ LOS, Muskuloskeletal FLA LOS N/A Magne tic Resonance 02/18/2023 12:4 6 PM LEAD FURNACE OPERATOR Impressions 02/18/2023 3:42 PM LEAD FURNACE OPERATOR 1. Multiple enhancing intramedullary lesions in the right ilium and sacrum with corresponding elevated PSMA expression on the prior PET/CT, compatible with osseous metastatic disease. 2. Multiple pelvic insufficiency fractures involving bilateral pubic bodies and irina and left acetabulum as described. Narrative 02/18/2023 3:42 PM LEAD FURNACE OPERATOR EXAM: ??MR MUSCULOSKELETAL PELVIS WITHOUT AND WITH [...] pelvic insufficiency fractures involving bilateral pubicbodies and iirna and left acetabulum as described. Kassie Cash P.A.-C., M.S. IMG MRI PROCED URES * (ABNORMAL) Urinalysis with Microscopic: Urine, Midstream (02/15/2023 1:20 PM LEAD FURNACE OPERATOR) Source Urine, Urine, Midstream 02/15/2023 1:20 PM LEAD FURNACE OPERATOR CNFL Clarity Clear Clear 02/15/2023 1:23 PM LEAD FURNACE OPERATOR CNFL Color Yellow 02/15/2023 1:23 PM LEAD FURNACE OPERATOR CNFL Comment: ----REFERENCE VALUE---- Colorless Yellow Cinthia Blood Moderate(A) Negative 02/15/2023 1:23 PM LEAD FURNACE OPERATOR CNFL Nitrite Negative Negative 02/15/2023 1:23 PM LEAD FURNACE OPERATOR CNFL Leukocyte Esterase Negative Negative 02/15/2023 1:23 PM LEAD FURNACE OPERATOR CNFL Protein 30(A) mg/dL 02/15/2023 1:23 PM LEAD FURNACE OPERATOR CNFL Comment: ----REFERENCE VALUE---- Negative Trace Glucose Negative Negative mg/dL 02/15/2023 1:23 PM LEAD FURNACE OPERATOR CNFL Ketones, QI(U) Trace(A) Negative mg/dL 02/15/2023 1:23 PM LEAD FURNACE OPERATOR CNFL Bilirubin Small(A) Negative 02/15/2023 1:23 PM LEAD FURNACE OPERATOR CNFL pH 5.5 5.0 - 8.0 02/15/2023 1:23 PM LEAD FURNACE OPERATOR CNFL Specific [place] 1.025 1.001 - 1.035 02/15/2023 1:23 PM LEAD FURNACE OPERATOR CNFL Urobilinogen 0.2 0.2 - 1.0 mg/dL 02/15/2023 1:23 PM LEAD FURNACE OPERATOR CNFL White Blood Cells None Seen /hpf 02/15/2023 1:40 PM LEAD FURNACE OPERATOR CNFL Comment: ----REFERENCE VALUE---- Males: 0-3 Females: 0-10 Unknown: 0-10 Red Blood Cells 3-10(A) 0 - 2 /hpf 1:40 PM LEAD FURNACE OPERATOR CNFL Dysmorphic Red Blood Cells <=25 <=25 % 02/15/2023 1:40 PM LEAD FURNACE OPERATOR CNFL Mucus Present /hpf 02/15/2023 1:40 PM LEAD FURNACE OPERATOR CNFL Squamous Cells Occ-3 /hpf 02/15/2023 1:40 PM LEAD FURNACE OPERATOR CNFL Bacteria None Seen None Seen 02/15/2023 1:40 PM LEAD FURNACE OPERATOR CNFL Urine (Urine, Midstream) 02/15/2023 1:20 PM LEAD FURNACE OPERATOR 02/15/2023 1:20 PM LEAD FURNACE OPERATOR Carson Fletcher M.D. LAB URINE ORDERABLES Performing Organization Address City/State/[facility] Co de Phone Number [facility] [address] [place] [phone], [facility] CNFL [facility] in [address] [address] * (ABNORMAL) Morphology Evaluation (02/15/2023 1:10 PM LEAD FURNACE OPERATOR) Pathologist [facility] RBC Morphology See Specific Findings 02/15/2023 2:13 PM LEAD FURNACE OPERATOR CNFL PLT Morphology Normal 02/15/2023 2:13 PM LEAD FURNACE OPERATOR CNFL PLT Estimate Adequate Adequate 02/15/2023 2:13 PM LEAD FURNACE OPERATOR CNFL Anisocytosis Slight(A) 02/15/2023 2:13 PM LEAD FURNACE OPERATOR CNFL Macrocytosis Marked(A) Not Seen 02/15/2023 2:13 PM LEAD FURNACE OPERATOR CNFL Blood 02/15/2023 1:10 PM LEAD FURNACE OPERATOR 02/15/2023 1:12 PM LEAD FURNACE OPERATOR Carson Fletcher M.D. LAB BLOOD ADD-ON [facility] [address] [place] [phone], [facility] CN[facility] in [address] [address] * (ABNORMAL) CD20 on B Cells (02/15/2023 1:10 PM LEAD FURNACE OPERATOR) [facility] CD45 Absolute 0.40(L) 1.00 - 3.33 thou/mcL 02/17/2023 2:57 PM LEAD FURNACE OPERATOR SDSC %CD19 B-Cells 0(L) 4.6 - 22.1 % 02/17/2023 2:57 PM LEAD FURNACE OPERATOR SDSC %CD20 B-Cells 0(L) 5.0 - 22.3 % 02/17/2023 2:57 PM LEAD FURNACE OPERATOR SDSC CD19 Absolute 0(L) 56.6 - 417.4 cells/mcL 02/17/2023 2:57 PM LEAD FURNACE OPERATOR SDSC CD20 Absolute 0(L) 74.4 - 441.1 cells/mcL 02/17/2023 2:57 PM LEAD FURNACE OPERATOR SDSC Comment: ----ADDITIONAL INFORMATION---- Reference values implemented June 20, 2008. This test was developed using an analyte specific reagent. Its performance characteristics were determined by [facility] in a manner consistent with CLIA requirements. This test has not been cleared or approved by the U.S. Food and Drug Administration. Blood (Blood, Venous) 02/15/2023 1:10 PM LEAD FURNACE OPERATOR 02/16/2023 8:27 AM LEAD FURNACE OPERATOR Carson Fletcher M.D. LAB BLOOD ADD-ON Performing Organization Address [facility]/ZIP Co de Phone Number [facility] [address] [place] [address] [place] [phone] [place] [address] [place] [address] * (ABNORMAL) ANCA (Antineutrophil Cytoplasmic Antibodies) Vasculitis Panel (02/15/2023 1:10 PM LEAD FURNACE OPERATOR) Myeloperoxidase Ab, S <0.2 <0.4 (Negative ) U 02/16/2023 4:29 PM LEAD FURNACE OPERATOR SDSC Proteinase 3 Ab (PR3), S 3.0(H) <0.4 (Negative ) U 02/16/2023 4:29 PM LEAD FURNACE OPERATOR SDSC Comment:Interpretation: Posi tive (>=1.0) Blood (Blood, Venous) 02/15/2023 1:10 PM LEAD FURNACE OPERATOR 02/16/2023 7:10 AM LEAD FURNACE OPERATOR Carson Fletcher M.D. LAB BLOOD ADD-ON Performing Organization Address City/[facility] Co de Phone Number [facility] [address] [place] [address] [facility] [address] [place] [address] * (ABNORMAL) Cytoplasmic Neutrophil Antibodies (02/15/2023 1:10 PM LEAD FURNACE OPERATOR) c-ANCA Positive 1:64(A) Negative 02/16/2023 11:01 PM LEAD FURNACE OPERATOR SDSC Perinuclear (P-ANCA) Negative Negative 02/16/2023 11:01 PM LEAD FURNACE OPERATOR SDSC Comment: Positive for PR3 antibodies by solid-phase immunoassay and cANCA pattern by immunofluorescence. Consistent with ANCA-associated vasculitis, if compatible clinical features are present. ----ADDITIONAL INFORMATION---- This test was developed and its performance characteristics determined by [facility] in a manner consistent with CLIA requirements. This test has not been cleared or approved by the U.S. Food and Drug Administration. Blood 02/15/2023 1:10 PM LEAD FURNACE OPERATOR 02/16/2023 5:31 PM LEAD FURNACE OPERATOR Carson Fletcher M.D. LAB BLOOD ADD-ON [facility] [address] [place] [address] [facility] [address] [place] [address] [place] [address] * (ABNORMAL) Sedimentation Rate (02/15/2023 1:10 PM LEAD FURNACE OPERATOR) Sedimentation Rate, B 26(H) 0 - 22 mm/1 h 02/15/2023 7:56 PM LEAD FURNACE OPERATOR RDWG Blood (Blood, Venous) 02/15/2023 1:10 PM LEAD FURNACE OPERATOR 02/15/2023 7:22 PM LEAD FURNACE OPERATOR Carson Fletcher M.D. LAB BLOOD ADD-ON [facility] [address] [place] [address], [facility] RDWG [facility] [place] [address] [place] [phone] * (ABNORMAL) CBC with Differential, Blood (02/15/2023 1:10 PM LEAD FURNACE OPERATOR) Hemoglobin 12.9(L) 13.2 - 16.6 g/dL 02/15/2023 2:13 PM LEAD FURNACE OPERATOR CNFL Hematocrit 36.2(L) 38.3 - 48.6 % 02/15/2023 2:13 PM LEAD FURNACE OPERATOR CNFL Erythrocytes 2.98(L) 4.35 - 5.65 x10(12)/L 02/15/2023 2:13 PM LEAD FURNACE OPERATOR CNFL MCV 121.5(H) 78.2 - 97.9 fL 02/15/2023 2:13 PM LEAD FURNACE OPERATOR CNFL RBC Distrib Width 14.3 11.8 - 14.5 % 02/15/2023 2:13 PM LEAD FURNACE OPERATOR CNFL Platelet Count 142 135 - 317 x10(9)/L 02/15/2023 2:13 PM LEAD FURNACE OPERATOR CNFL Leukocytes 6.6 3.4 - 9.6 x10(9)/L 02/15/2023 2:13 PM LEAD FURNACE OPERATOR CNFL Neutrophils 5.52 1.56 - 6.45 x10(9)/L 02/15/2023 2:13 PM LEAD FURNACE OPERATOR CNFL Lymphocytes 0.38(L) 0.95 - 3.07 x10(9)/L 02/15/2023 2:13 PM LEAD FURNACE OPERATOR CNFL Monocytes 0.65 0.26 - 0.81 x10(9)/L 02/15/2023 2:13 PM LEAD FURNACE OPERATOR CNFL Eosinophils 0.06 0.03 - 0.48 x10(9)/L 02/15/2023 2:13 PM LEAD FURNACE OPERATOR CNFL Basophils <0.04 0.01 - 0.08 x10(9)/L 02/15/2023 2:13 PM LEAD FURNACE OPERATOR CNFL Blood (Blood, Venous) 02/15/2023 1:10 PM LEAD FURNACE OPERATOR 02/15/2023 1:12 PM LEAD FURNACE OPERATOR Carson Fletcher M.D. [place] [address], [place] [address] * CRP (C-Reactive Protein) (02/15/2023 1:10 PM LEAD FURNACE OPERATOR) C-Reactive Protein (CRP), P 4.2 <5.0 mg/L 02/15/2023 1:33 PM LEAD FURNACE OPERATOR CNFL Blood (Blood, Venous) 02/15/2023 1:10 PM LEAD FURNACE OPERATOR 02/15/2023 1:12 PM LEAD FURNACE OPERATOR Carson Fletcher M.D. [place] [address], [address] [place] [address] * (ABNORMAL) Uric Acid (02/15/2023 1:10 PM LEAD FURNACE OPERATOR) [facility] Uric Acid, P 3.3(L) 3.7 - 8.0 mg/dL 02/15/2023 1:33 PM LEAD FURNACE OPERATOR CNFL Blood (Blood, Venous) 02/15/2023 1:10 PM LEAD FURNACE OPERATOR 02/15/2023 1:12 PM LEAD FURNACE OPERATOR Carson Fletcher M.D. LAB BLOOD ADD-ON Performing Organization Address City/[facility]/ZIP Co de Phone Number [facility] [address] [address], [facility] in [address] [address] * (ABNORMAL) PSA (Prostate-Specific Antigen), Diagnostic (02/15/2023 1:10 PM LEAD FURNACE OPERATOR) [facility] Prostate-Specific Ag 21.2(H) <=6.5 ng/mL 02/15/2023 8:02 PM LEAD FURNACE OPERATOR RDWG Comment: ----ADDITIONAL INFORMATION---- The testing method is an electrochemiluminescence assay manufactured by [employer] and performed on the Modular or Lana system. Values obtained with different assay methods or kits may be different and cannot be used interchangeably. Test results cannot be interpreted as absolute evidence for the presence or absence of malignant disease. Blood (Blood, Venous) 02/15/2023 1:10 PM LEAD FURNACE OPERATOR 02/15/2023 7:22 PM LEAD FURNACE OPERATOR Sherin Garcia APRNN.P., M.S. LAB BLOOD ADD-ON [facility] [address] [place] [address], [facility] RDWG [facility] [place] [address] [place] [address] * Phosphorus Inorganic (02/15/2023 1:10 PM LEAD FURNACE OPERATOR) Phosphorus (Inorganic), P 3.7 2.5 - 4.5 mg/dL 02/15/2023 1:33 PM LEAD FURNACE OPERATOR CNFL Blood (Blood, Venous) 02/15/2023 1:10 PM LEAD FURNACE OPERATOR 02/15/2023 1:12 PM LEAD FURNACE OPERATOR Carson Fletcher M.D. LAB BLOOD ADD-ON Performing Organization Address [facility] Co de Phone Number [facility] [address] [place] [address], [facility] [address] * (ABNORMAL) Glucose, Fasting (02/15/2023 1:10 PM LEAD FURNACE OPERATOR) Glucose, P 117(H) 70 - 100 mg/dL 02/15/2023 1:29 PM LEAD FURNACE OPERATOR CNFL Last Intake 10 hr 02/15/2023 1:12 PM LEAD FURNACE OPERATOR CNFL Blood (Blood, Venous) 02/15/2023 1:10 PM LEAD FURNACE OPERATOR 02/15/2023 1:12 PM LEAD FURNACE OPERATOR Carson Fletcher M.D. LAB BLOOD NON ADD-ON Performing Organization Address [facility] Co de Phone Number [address] [address], [facility] CNFL [place] [phone] * Comprehensive Metabolic Panel (02/15/2023 1:10 PM LEAD FURNACE OPERATOR) Potassium, P 3.9 3.6 - 5.2 mmol/L 02/15/2023 1:33 PM LEAD FURNACE OPERATOR CNFL Sodium, P 139 135 - 145 mmol/L 02/15/2023 1:33 PM LEAD FURNACE OPERATOR CNFL Chloride, P 101 98 - 107 mmol/L 02/15/2023 1:33 PM LEAD FURNACE OPERATOR CNFL Bicarbonate, P 27 22 - 29 mmol/L 02/15/2023 1:33 PM LEAD FURNACE OPERATOR CNFL Anion Gap, P 11 7 - 15 02/15/2023 1:33 PM LEAD FURNACE OPERATOR CNFL BUN (Blood Urea Nitrogen), P 16 8 - 24 mg/dL 02/15/2023 1:33 PM LEAD FURNACE OPERATOR CNFL Creatinine 0.98 0.74 - 1.35 mg/dL 02/15/2023 1:33 PM LEAD FURNACE OPERATOR CNFL Estimated GFR (eGFR) 78 >=60 mL/min/BS A 02/15/2023 1:33 PM LEAD FURNACE OPERATOR CNFL Comment: Estimated GFR calculated using the 2020 CKD_EPI creatinine equation. Calcium, Total, P 9.2 8.8 - 10.2 mg/dL 02/15/2023 1:33 PM LEAD FURNACE OPERATOR CNFL Glucose, P CANCELED mg/dL 02/15/2023 1:12 PM LEAD FURNACE OPERATOR CNFL Comment: Duplicate test request. Result canceled by the ancillary. Protein, Total, P 6.6 6.3 - 7.9 g/dL 02/15/2023 1:33 PM LEAD FURNACE OPERATOR CNFL Albumin, P 4.1 3.5 - 5.0 g/dL 02/15/2023 1:33 PM LEAD FURNACE OPERATOR CNFL Aspartate Aminotransferase (AST), P 19 8 - 48 U/L 02/15/2023 1:33 PM LEAD FURNACE OPERATOR CNFL Alkaline Phosphatase, P 120 40 - 129 U/L 02/15/2023 1:33 PM LEAD FURNACE OPERATOR CNFL Alanine Aminotransferase (ALT), P 13 7 - 55 U/L 02/15/2023 1:33 PM LEAD FURNACE OPERATOR CNFL Bilirubin, Total, P 0.4 0.0 - 1.2 mg/dL 02/15/2023 1:33 PM LEAD FURNACE OPERATOR CNFL Blood (Blood, Venous) 02/15/2023 1:10 PM LEAD FURNACE OPERATOR 02/15/2023 1:12 PM LEAD FURNACE OPERATOR Carson Fletcher M.D. LAB BLOOD ADD-ON [facility] [address] [place] [phone], [facility] CN[facility] in [address] [address] * Interpretation of Outside NM PET Scan (02/09/2023 3:26 PM LEAD FURNACE OPERATOR) Anatomical Region Laterality Modality Nuclear Medicine PET RST LOS , Nuclear Medicine ARZ LOS, Nuclear Medicine FLA LOS, Nuclear Medicine, Other, Neuroradiology ARZ LOS, Neuroradiology FLA LOS, Neuroradiology RST LOS, Body N/A Nuclear Medicine 02/15/2023 8:12 AM LEAD FURNACE OPERATOR Impressions 02/15/2023 4:57 PM LEAD FURNACE OPERATOR Intensely radiotracer avid metastases as detailed in the findings. Narrative 02/15/2023 4:57 PM LEAD FURNACE OPERATOR EXAM: ??INTERPRETATION OF OUTSIDE NM PET SCAN [...] vascular calcifications. Prostatectomy. Colonic diverticula. Procedure Note Geramn Mitchell M.D., Ph.D. - 02/15/2023 EXAM: INTERPRETATION [...] relevant findings have been placed into the 3Nodcket for the outside examination dated 01/22/2023. Several [...] avid metastases as detailed in the findings. Kallie Rosales APRN, C.N.P., M.S. IMG NM PROCEDURES from Last 3 Months Additional Health Concerns Infection Onset Date Last Indicated Protective Environment 07/31/2022 3 Care Teams Tribal Council Member Relationship Specialty Start Date End Date Elsewhere, Pcp PCP - General Family Medicine 12/29/19
--- OUTSIDE RECORDS SUMMARY | 2023-04-25 18:59 | XMS_ITS | Encounter Summary ---
Author Name Unknown Organization [facility] Address [address] [place] [address] Care Team Providers Care Sample Tailor Name Role Phone Elsewhere, Pcp Primary Care Provider Unavailabl e Reason for Referral * Radiation Therapy (Routine) - Closed Specialty Diagnoses / Procedures Referred By Brittni callejas Referred To Contact Diagnoses Primary Malignant Neoplasm Of Prostate (HCC) Rising Prostate Specific Antigen Following Treatment For Malignant Cancer Of Prostate Procedures Initial Rad Onc Treatment Planning CT Simulation Gurwinder [place] [address] [facility] Region Referral ID Status Reason Start Date Expiration Date Visits Re quested Visits Authorized [id number] Closed 04/12/2023 04/11/2024 1 1 RINARY DENTIST Reason for Visit * Radiation Therapy (Routine) - Closed Specialty Diagnoses / Procedures Referred By Brittni callejas Referred To Contact Diagnoses Primary Malignant Neoplasm Of Prostate (HCC) Rising Prostate Specific Antigen Following Treatment For Malignant Cancer Of Prostate Procedures Initial Rad Onc Treatment Planning CT Simulation Gurwinder Tejeda M.D. [address] [place] [address] [facility] Region Referral ID Status Reason Start Date Expiration Date Visits Re quested Visits Authorized [id number] Closed 04/12/2023 04/11/2024 1 1 Encounter Details Date Type Department Care Team (Latest Contact Info) Description 04/13/2023 1:30 PM VETERINARY DENTIST - 04/13/2023 3:56 PM VETERINARY DENTIST Hospital Encounter Department of Radiation Oncology in [place], [place] [address] [place] [phone] Gurwinder Tejeda M.D. [address] [place] [address] Primary Malignant Neoplasm Of Prostate (HCC); Rising Prostate Specific Antigen Following Treatment For Malignant Cancer Of Prostate Social History Tobacco Use Types Packs/Day Years Used Date Smoking Tobacco: Some Days Cigarettes 0.3 30 Passive Smoke Exposure: Past Smokeless Tobacco: Never Alcohol Use Standard Drinks/Week Comments Yes 2 (1 standard drink = 0.6 oz pur e alcohol) [facility] Utilities Answer Date Recorded In the past 12 months has e [employer], gas, oil, or water [employer] threatened to shut off services in your [...] 02/03/2022 How often do you attend chur ch or buddhist services? Patient declined 02/03/2022 Do you belong to any clubs o r organizations such as restoration groups, unions, fraternal or athletic groups, or [...] Answer Date Recorded PHQ-2 Score 2 09/24/2021 [facility] Occupational Stress Questionnaire Answer Date Recorded [...] your living situation today? I have a [facility] place to live 04/03/2023 Education Answer Date Recorded What is the highest level of school you have completed or the highest degree you have received? 12th grade 08/29/2020 Sex and Gender Information Value Date Recorded Sex Assigned at Male 08/03/2017 10:59 AM CDT Gender Identity Male 08/03/2017 10:59 AM CDT Sexual Orientation Straight 08/03/2017 10 :59 AM CDT documented as of this encounter Medications at Time of Discharge Medication Sig Dispensed Refills Start Date End Date ascorbic acid, vitamin C, (VITAMIN C) 1,000 mg tablet Take 1,000 mg by mouth daily. 0 aspirin (ASPIR-81 ORAL) Take 81 mg by mouth daily. 0 cholecalciferol (for_VITAMIN D3) 2,000 Unit capsule Take 1 capsule by mouth daily. 0 08/10/2016 diphenhydrAMINE-acetamin ophen (TYLENOL PM) 25-500 mg per tablet Take 1 tablet by mouth as needed. Insomnia 0 09/12/2013 DOCOSAHEXANOIC ACID/EPA (FISH OIL ORAL) Take 1 capsule by mouth daily. 1000 mg daily as supplement. 0 12/31/2016 HYDROmorphone (DILAUDID) 2 mg tablet Take 1 tablet by mouth. 0 01/21/2023 leuprolide (ELIGARD 6 MONTH) 45 mg injection Lupron Depot (3 month) one shot every 3 months 0 loperamide (IMODIUM A-D) 2 mg capsule Take 2 mg by mouth at bedtime as needed for diarrhea. 0 magnesium oxide (MAG-OX) 400 mg (241.3 mg magnesium) tablet Take 400 mg by mouth daily. 0 02/21/2020 melatonin 10 mg capsule Take 1 tablet by mouth as needed. 0 methylphenidate HCl (RITALIN) 5 mg tablet 0 01/28/2023 multivitamin (MULTIPLE VITAMINS ORAL) 1 tablet. 0 nitroglycerin (NITROSTAT) 0.[address] 0.4 mg under the tongue as needed. 0 02/27/2020 potassium chloride (KLORCON/K-TAB) 10 mEq ER tablet Take 1 tablet (10 mEq total) by mouth daily. 90 tablet 3 09/24/2021 predniSONE (DELTASONE) 10 mg tablet Take 5 mg by mouth daily. 0 08/11/2022 RITUXIMAB IV Infuse 1,000 mg into a venous catheter as directed. 1000 mg x 2, 2 weeks apart at [facility] on 06/10/2022 and 06/24/2022. 0 06/10/2022 sulfamethoxazole-trimeth oprim (BACTRIM) 400-80 mg per tablet Take 1 tablet by mouth daily. 90 tablet 3 09/14/2022 UNABLE TO FIND as needed. Prochlorerazone: 0 zinc chelated 50 mg tablet tablet Take 50 mg by mouth daily. 0 documented as of this encounter Procedure Notes * Xiomara Browne, RTT - 04/13/2023 1:30 PM CSTAssociated Order(s): Initial Rad Onc Treatment Planning CT Simulation Pre-Procedure Diagnose(s): Primary Malignant Neoplasm Of Prostate (HCC); Rising Prostate Specific Antigen Following Treatment For Malignant Cancer Of Prostate Post-Procedure Diagnose(s): Primary Malignant Neoplasm Of Prostate (HCC); Rising Prostate Specific Antigen Following Treatment For Malignant Cancer Of Prostate Initial Rad Onc Treatment Planning CT Simulation Performed by: Gurwinder Tejeda M.D. Authorized by: Gurwinder Tejeda M.D. Simulation was performed under physician supervision based on physician order in preparation for radiation therapy. Physician was immediately available to provide assistance and direction throughout the procedure. Written consent for treatment was completed or confirmed. The patient was appropriately identified and placed in the treatment position using the necessary immobilization to ensure a reproducible treatment position. Reference medina were placed to facilitate marking of isocenter. Area scanned:Neck, Chest, and Abdomen Contrast used for the simulation procedure: None Patient position:head first supine and arms up Custom immobilization: Vac-brianda Motion management: None Bolus: No CT guidance: Following positioning of the patient, a series of slices was obtained to be utilized in treatment planning. CT images were transferred to the [employer] treatment planning system, after a reference isocenter was determined and marked. Segmentation and treatment planning will take place prior to treatment delivery. Patient set up and imaging was appropriate and completed without incident. Rental Car Porter use:No RINARY DENTIST Associated attestation - Gurwinder Tejeda M.D. - 04/13/2023 3:56 PM VETERINARY DENTIST I was available for the entirety of the procedure but not present. Signed by: Gurwinder Tejeda M.D. 04/13/23 3:55 PM VETERINARY DENTIST [facility] Radiation Therapy [facility] documented in this encounter Plan of Treatment Upcoming Encounters Date Type Department Care Team (Late st Contact Info) Description 04/26/2023 3:15 PM VETERINARY DENTIST Appointment Department of Radiation Oncology in [place], [place] [address] [place] [address] Gurwinder Tejeda M.D. [address] [place] [address] 05/03/2023 1:00 PM VETERINARY DENTIST Appointment Department of Laboratory Medicine in [address] [phone] Carson Fletcher M.D. [address] [place] [phone] 05/03/2023 1:10 PM VETERINARY DENTIST Appointment Department of Laboratory Medicine in [address] [phone] Carson Fletcher M.D. [address] [place] [phone] 2023 2:30 PM VETERINARY DENTIST Virtual Visit Division of Pulmonary Medicine in [place], [place] [address] [place] [address] Carson Fletcher M.D. [address] [place] [phone] 07/05/2023 11:20 AM CDT Lab Department of Laboratory Medicine and Pathology, [facility], in [place], [place] [address] [place] [address] Kallie Rosales APRN, C.N.P., M.S. [address] [place] [phone] 07/05/2023 12:45 PM CDT Appointment Department of Radiology, [facility], in [place], [place] [address] [place] [address] Kallie Rosales APRN, C.N.P., M.S. [address] [place] [phone] 07/06/2023 11:30 AM CDT Office Visit Department of Urology in [place], [place] [address] [place] [address] Sushant Vicente M.D. [address] [place] [phone] documented as of this encounter Procedures Procedure Name Priority Date/Time Associated Diagnosis Comments INITIAL RAD ONC TREATMENT PLANNING CT SIMULATION Routine 04/13/2023 1:30 PM VETERINARY DENTIST Primary Malignant Neoplasm Of Prostate (HCC) Rising Prostate Specific Antigen Following Treatment For Malignant Cancer Of Prostate documented in this encounter Results * Initial Rad Onc Treatment Planning CT Simulation (04/13/2023 1:30 PM VETERINARY DENTIST) Narrative STEVIE QUIÑONES - 04/13/2023 1:30 PM VETERINARY DENTIST Xiomara Browne, RTT ? 04/13/2023 ??2:13 PM Initial Rad Onc Treatment Planning CT Simulation Performed by: Gurwinder Tejeda M.D. Authorized by: Gurwinder Tejeda M.D. ?? Gurwinder Tejeda M.D. RADIATION ONCOLOGY ORDERABLES Performing Organization Address City/State/[facility] Co mo Phone Number SWISS NURIA na documented in this encounter Visit Diagnoses Diagnosis Primary Malignant Neoplasm Of Prostate (HCC) Rising Prostate Specific Antigen Following Treatment For Malignant Cancer Of Prostate documented in this encounter Additional Health Concerns Infection Onset Date Last Indicated Resolved Time Protective Environment 07/31/2022 07/31/2022 Assessment Noted Time PHQ-9 Depression Total Score: 2 10/13/19 14 10:45 AM CDT documented as of this encounter Care Teams Sample Tailor Relationship Specialty Start Date End Date Elsewhere, Pcp PCP - General Family Medicine 12/29/19 documented as of this encounter
--- OUTSIDE RECORDS SUMMARY | 2023-04-25 18:59 | XMS_ITS | Encounter Summary ---
Author Name Unknown Organization [facility] Address [address] [place] [id number] Care Team Providers Care Astro Technician Name Role Phone Elsewhere, Pcp Primary Care Provider Unavailabl e Encounter Details Date Type Department Care Team (Late st Contact Info) Description 04/19/2023 12:30 PM [facility] Hospital Encounter Department of Radiation Oncology in [place], [place] [address] [place] [phone] Gurwinder Tejeda M.D. [address] [place] [phone] Social History Tobacco Use Types Packs/Day Years Used Date Smoking Tobacco: Some Days Cigarettes 0.3 30 Passive Smoke Exposure: Past Smokeless Tobacco: Never Alcohol Use Standard Drinks/Week Comments Yes 2 (1 standard drink = 0.6 oz pur e alcohol) [facility] Utilities Answer Date Recorded In the past 12 months has [facility] [employer], oil, or water [employer] threatened to shut off services in your [...] week 02/03/2022 How often do you attend [facility] or orthodox services? Patient declined 02/03/2022 Do you belong to any clubs o r organizations such as religion groups, unions, fraternal or athletic groups, or [...] Answer Date Recorded PHQ-2 Score 2 09/24/2021 [facility] - Occupational Stress [...] your living situation today? I have a [facility] place to live 04/03/2023 Education Answer [...] AM CDT documented as of this encounter Plan of Treatment Upcoming Encounters Date Type Department Care Team (Late st Contact Info) Description 04/26/2023 3:15 PM [facility] Appointment Department of Radiation Oncology in [place], [place] [address] [place] [phone] Gurwinder Tejeda M.D. [address] [place] [address] 05/03/2023 1:00 PM [facility] Appointment Department of Laboratory Medicine in [address] [phone] Carson Fletcher M.D. [address] [place] [address] 05/03/2023 1:10 PM [facility] Appointment Department of Laboratory Medicine in [address] [phone] Carson Fletcher M.D. [address] [place] [phone] 2023 2:30 PM [facility] Virtual Visit Division of Pulmonary Medicine in [place], [place] [address] [place] [address] Carson Fletcher M.D. [address] [place] [phone] 07/05/2023 11:20 AM CDT Lab Department of Laboratory Medicine and Pathology, [facility] in [place], [place] [address] [place] [address] Kallie Rosales APRN, C.N.P., M.S. [address] [place] [phone] 07/05/2023 12:45 PM CDT Appointment Department of Radiology, [facility] in [place], [place] [address] [place] [address] Kallie Rosales APRN, C.N.P., M.S. [address] [place] [phone] 07/06/2023 11:30 AM CDT Office Visit Department of Urology in [place], [place] [address] [place] [address] Sushant Vicente M.D. [address] [place] [phone] documented as of this encounter Visit Diagnoses Not on filedocumented in this encounter Additional Health Concerns Infection Onset Date Last Indicated Resolved Time Protective Environment 07/31/2022 07/31/2022 Assessment Noted Time PHQ-9 Depression Total Score: 2 10/13/19 14 10:45 AM CDT documented as of this encounter Care Teams Astro Technician Relationship Specialty Start Date End Date Elsewhere, Pcp PCP - General Family Medicine 12/29/19 documented as of this encounter
--- OUTSIDE RECORDS SUMMARY | 2023-04-25 18:59 | XMS_ITS ---
Author Name Unknown Organization [facility] Address [address] [place] [address] Care Team Providers Care Railroad Dining Car Steward/Stewardess Name Role Phone Unavailable Unavailable Unavailable Surgery Details Not on file Complications Check Surgery Details section. Procedure Estimated Blood Loss Check Surgery Details section. Procedure Findings Check Surgery Details section. Procedure Specimens Taken Check Surgery Details section.
--- OUTSIDE RECORDS SUMMARY | 2023-04-25 18:59 | XMS_ITS | Encounter Summary ---
Author Name Unknown Organization [facility] Address [address] [place] [address] Care Team Providers Care Chemist Enzymes Name Role Phone Elsewhere, Pcp Primary Care Provider Unavailabl e Encounter Details Date Type Department Care Team (Late st Contact Info) Description 04/20/2023 11:46 AM [facility] Hospital Encounter Department of Radiation Oncology in [place], [place] [address] [place] [phone] Gurwinder Tejeda M.D. [address] [place] [phone] Social History Tobacco Use Types Packs/Day Years Used Date Smoking Tobacco: Some Days Cigarettes 0.3 30 Passive Smoke Exposure: Past Smokeless Tobacco: Never Alcohol Use Standard Drinks/Week Comments Yes 2 (1 standard drink = 0.6 oz pur e alcohol) [facility] Utilities Answer Date Recorded In the past 12 months has [facility] [employer], oil, or water [employer] threatened to shut off services in your [...] week 02/03/2022 How often do you attend [facility] or scientologist services? Patient declined 02/03/2022 Do you belong to any clubs o r organizations such as druze groups, unions, fraternal or athletic groups, or [...] your living situation today? I have a [facility] place to live 04/03/2023 Education Answer Date [...] st Contact Info) Description 04/26/2023 3:15 PM ROLLER CLEANER Appointment Department of Radiation Oncology in [place], [place] [address] [place] [phone] Gurwinder Tejeda M.D. [address] [place] [address] 05/03/2023 1:00 PM [employer] Appointment Department of Laboratory Medicine in [address] [phone] Carson Fletcher M.D. [address] [place] [address] 05/03/2023 1:10 PM ROLLER CLEANER Appointment Department of Laboratory Medicine in [address] [phone] Carson Fletcher M.D. [address] [place] [phone] 2023 2:30 PM ROLLER CLEANER Virtual Visit Division of Pulmonary Medicine in [place], [place] [address] [place] [address] Carson Fletcher M.D. [address] [place] [phone] 07/05/2023 11:20 AM CDT Lab Department of Laboratory Medicine and Pathology, [facility] in [place], [place] [address] [place] [address] Kallie Rosales APRN, C.N.P., M.S. [address] [place] [phone] 07/05/2023 12:45 PM CDT Appointment Department of Radiology, [facility] in [place], [place] [address] [place] [address] Kallie Rosales APRN, C.N.P., M.S. [address] [place] [phone] 07/06/2023 11:30 AM CDT Office Visit Department of Urology in [place], [place] [address] [place] [address] Sushant Vicente M.D. [address] [place] [phone] documented as of this encounter Visit Diagnoses Not on filedocumented in this encounter Additional Health Concerns Infection Onset Date Last Indicated Resolved Time Protective Environment 07/31/2022 07/31/2022 Assessment Noted Time PHQ-9 Depression Total Score: 2 10/13/19 14 10:45 AM CDT documented as of this encounter Care Teams Chemist Enzymes Relationship Specialty Start Date End Date Elsewhere, Pcp PCP - General Family Medicine 12/29/19 documented as of this encounter
--- OUTSIDE RECORDS SUMMARY | 2023-04-25 18:59 | XMS_ITS | Encounter Summary ---
Author Name Unknown Organization [facility] Address [address] [place] [id number] Care Team Providers Care Manager Document Name Role Phone Elsewhere, Pcp Primary Care Provider Unavailabl e Reason for Referral * Radiation Therapy (Routine) - Authorized Specialty Diagnoses / Procedures Referred By Contac t Referred To Contact Diagnoses Secondary Malignant Neoplasm Bone (HCC) Procedures Prior Auth Rad Tx Gurwinder Tejeda M.D. [address] [place] [address] [facility] Referral ID Status Reason Start Date Expiration Date V isits Requested Visits Authorized [id number] Authorized 04/15/2023 04/14/2024 1 1 SITIONS MANAGER RN * Outpatient (Routine) - Closed Specialty Diagnoses / Procedures Referred By Contac t Referred To Contact Radiation Oncology Gurwinder Tejeda M.D. [address] [place] [address] Gurwinder Tejeda M.D. [address] [place] [address] Referral ID Status Reason Start Date Expiration Date Visits Re quested Visits Authorized [id number] Closed 04/12/2023 10/11/2024 1 1 Scheduling Instructions See at 1 pm on 04/13, coordinate with sim SITIONS MANAGER RN Reason for Visit * Outpatient (Routine) - Closed Specialty Diagnoses / Procedures Referred By Brittni callejas Referred To Contact Radiation Oncology Gurwinder Tejeda M.D. [address] [place] [address] Gurwinder Tejeda M.D. [address] [place] [address] Referral ID Status Reason Start Date Expiration Date Visits Re quested Visits Authorized [id number] Closed 04/12/2023 10/11/2024 1 1 Encounter Details Date Type Department Care Team (Latest Contact Info) Description 04/13/2023 12:42 PM TRANSITIONS MANAGER RN - 04/13/2023 1:29 PM TRANSITIONS MANAGER RN Hospital Encounter Department of Radiation Oncology in [place], [place] [address] [place] [address] Gurwinder Tejeda M.D. [address] [place] [address] Primary Malignant Neoplasm Of Prostate (HCC) (Primary Dx); Secondary Malignant Neoplasm Bone (HCC) Social History Tobacco Use Types Packs/Day Years Used Date Smoking Tobacco: Some Days Cigarettes 0.3 30 Passive Smoke Exposure: Past Smokeless Tobacco: Never Alcohol Use Standard Drinks/Week Comments Yes 2 (1 standard drink = 0.6 oz pur e alcohol) [facility] Utilities Answer Date Recorded In the past 12 months has [facility] [employer], Gig[employer], oil, or water Satomi threatened to shut off services in your [...] week 02/03/2022 How often do you attend [facility] or buddhism services? Patient declined 02/03/2022 Do you belong [...] Answer Date Recorded PHQ-2 Score 2 09/24/2021 [facility] - [...] your living situation today? I have a [facility] place to live 04/03/2023 Education Answer Date Recorded What is the highest level of school you have completed or the highest degree you have received? 12th grade 08/29/2020 Sex and Gender Information Value Date Recorded Sex Assigned at Male 08/03/2017 10:59 AM CDT Gender Identity Male 08/03/2017 10:59 AM CDT Sexual Orientation Straight 08/03/2017 10 :59 AM CDT documented as of this encounter Last Filed Vital Signs Vital Sign Reading Time Taken Comments Blood Pressure 113/49 04/13/2023 12:52 PM TRANSITIONS MANAGER RN Pulse 95 04/13/2023 12:52 PM TRANSITIONS MANAGER RN Temperature 36.8 ??C (98.2 ??F) 04/13/2023 1 2:52 PM TRANSITIONS MANAGER RN Respiratory Rate - - Oxygen Saturation - - Inhaled Oxygen Concentration - - Weight 82.9 kg (182 lb 12.2 oz) 024 12:52 PM TRANSITIONS MANAGER RN Height - - Body Mass Index 28.55 03/09/2023 3:43 PM TRANSITIONS MANAGER RN documented in this encounter Medications at Time of Discharge [...] mg x 2, 2 weeks apart at [facility] on 06/10/2022 and 06/24/2022. 0 06/10/2022 sulfamethoxazole-trimeth oprim (BACTRIM) 400-80 mg per tablet Take 1 tablet by mouth daily. 90 tablet 3 09/14/2022 UNABLE TO FIND as needed. Prochlorerazone: 0 zinc chelated 50 mg tablet tablet Take 50 mg by mouth daily. 0 documented as of this encounter Progress Notes * Florecita Starks APRN, C.N.P., D.N.P. - 04/13/2023 1:00 PM CST SUBJECTIVE REQUESTING PROVIDER Gurwinder Tejeda M.D. REASON FOR CONSULT 1. Primary Malignant Neoplasm Of Prostate (HCC) 2. Secondary Malignant Neoplasm Bone (HCC) SUPERVISED BY: Gurwinder Tejeda M.D. ([id number]) HISTORY OF PRESENT ILLNESS Mr. Lashell Gates is a 77 y.o. 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 He completed radiation treatment to T3- T8 and sternum on February 05, 2023. He completed radiation treatment to left lateral 7th-9th ribs on February 24, 2023. He is having an increase in pain in the previously radiated left ribcage, along with new pain in the right chest. Updated PSMA PET/CT imaging demonstrates multifocal hypermetabolic tracer avid osseous metastases involving his pelvic bones, sacrum, cervical, thoracic and lumbar vertebrae, sternum, and multifocal bilateral rib lesions. He presents today for an opinion regarding the role of radiation therapy in the management of his disease. His oncologic history is as follows: Oncology History Primary Malignant Neoplasm Of Prostate (HCC) 02/21/2004 Other PSA 4.6 ng/mL 07/01/2004 Surgery and Procedures Underwent robotic-assisted radical prostatectomy by Dr. Duque. Pathology revealed [place] 3 + 3, pT2c, N0, MX, R0 adenocarcinoma of the prostate. 04/2012 Other PSA undetectable from October 02, 2004 through December 01, 2010. 04/2012: PSA 0.25 ng/mL 04/13/2013: PSA 0.4 ng/mL 07/20/2013: PSA 0.39 ng/mL 09/29/2013 Critical Imaging Bone scan demonstrated no evidence of skeletal metastases. MRI of the prostate demonstrated postoperative changes with no discrete focus of tumor recurrence in the prostatectomy bed. There are no suspicious bone lesions and no suspicious lymphadenopathy. 10/05/2013 - 11/29/2013 Radiation Therapy Completed salvage external beam radiation therapy delivering 7020 cGy in [address] Cole at [place], [place] for a biochemical recurrence. 12/26/2013 Other 12/26/2013: PSA 0.98 ng/mL 03/07/2014: PSA 0.86 ng/mL 07/25/2014: PSA 3.2 ng/mL 07/31/2014 Critical Imaging Choline PET-CT scan IMPRESSION: 1. Suspicion for bilateral iliac and possibly an aortocaval retroperitoneal lymph node metastases. 2. Choline avid mediastinal and hilar lymph nodes, more likely reactive than metastatic. 3. Indeterminate foci of activity within the L1 and L5 vertebral bodies, small bone metastases not excluded. 08/15/2014 - 10/2017 Biological/Targeted/Hormone Therapy 08/15/2014: Initiated intermittent androgen deprivation therapy with a Lupron 22.5 mg injection. 11/09/2014: Leuprolide 30 mg injection. 08/11/2016: Leuprolide 22.5 mg injection. 08/10/2017: Leuprolide 22.5 mg (3 month) injection. 11/09/2014 Other 11/09/2014: PSA <0.10 ng/mL 12/24/2015: PSA became detectable at 0.13 ng/mL. 08/10/2016: PSA 1.9 ng/mL 12/31/2016: PSA <0.10 ng/mL 03/09/2017: PSA 0.14 ng/mL 08/06/2017: PSA 3.0 ng/mL 11/16/2017: PSA <0.10 ng/mL 03/08/2018: PSA 0.58 ng/mL 08/03/2018: PSA 15.6 ng/mL 11/22/2018: PSA 35.5 ng/mL 08/17/2018 - Biological/Targeted/Hormone Therapy Leuprolide 22.5 mg (3 month) injection. The patient has continued with leuprolide injections every 3-4 months. 12/01/2018 Critical Imaging Choline PET scan revealed choline avid lymph nodes in the retroperitoneum all the way up to the level of the kidneys. In addition, patient had mediastinal and hilar lymph nodes that appeared to be choline avid and possibly consistent with metastatic prostate cancer. 12/12/2018 Critical Imaging MRI was negative for any evidence of liver metastases. 12/13/2018 - 09/2020 Biological/Targeted/Hormone Therapy Dr. Vicente recommended he continue on Lupron therapy every 3 months with the addition of Zytiga with prednisone. 01/26/2019 Other 01/26/2019: PSA 5.9 ng/mL 03/09/2019: PSA 2.7 ng/mL 05/23/2019: PSA 2.1 ng/mL 08/09/2019: PSA 1.9 ng/mL 11/09/2019: PSA 1.9 ng/mL 03/06/2020: PSA 5.9 ng/mL 06/05/2020: PSA 4.9 ng/mL 08/29/2020: PSA 8.5 ng/mL 08/09/2019 Critical Imaging C11 PET choline scan does reveal resolution or improvement in abdominal pelvic lymph nodes. Patientcontinues to have stable low level choline avid lymph nodes within the chest. 03/06/2020 Critical Imaging C11 PET choline scan does reveal interval compression fracture of L5 vertebral body with increased choline uptake, which could result represent tumor involvement or possibly insufficiency fracture with just inflammation. There is also mildly choline avid mediastinal and hilar nodes which are more likely reactive. Also seen is stable appearance of left external iliac and aortocaval nodes which areonly mildly choline avid. 06/05/2020 Critical Imaging C11 choline PET scan does not reveal clear site of prostate cancer progression or recurrence. Patient has benign L5 compression fracture. 08/29/2020 Critical Imaging Imaging demonstrated no convincing evidence for metabolically active recurrent/residual disease. Stable symmetric hilar mediastinal uptake. 09/20/2020 Critical Imaging Patient underwent PSMA PET scan. Innumerable intensely PSMA avid bone lesions and retroperitoneal lymph nodes suggestive of metastatic disease. 09/2020 Genetic Testing and Tumor Genotyping Guardant 360 noted + KAYE, candidate for Olaparib. TMB of >18, noting a candidate for pembrolizumab. 10/18/2020 - 01/31/2021 Chemotherapy Carboplatin plus docetaxel chemotherapy x 6 cycles under the care of Dr. Mott. 11/29/2020 Other 11/29/2020: PSA 28.3 ng/mL 12/19/2020: PSA 19.8 ng/mL 02/21/2021: PSA 8.8 ng/mL 12/19/2020 Critical Imaging C11 PET choline scan does suggest numerous PSMA tracer avid skeletal metastases on previous imagingdo not show pooling obtained today. None of lymph node metastases previously demonstrated on PSMA have choline tracer uptake today. There are several new tiny pulmonary nodules too small for characterization. At least two of previously seen PSMA positive skeletal metastases show only faint choline uptake previously are identified today. 02/21/2021 Critical Imaging C11 PET choline scan continued to note decrease in choline avid osseous lesions. Decrease in his prior right mid lobe pulmonary nodule to 3 mm from prior 6 mm and along the major fissure measuring 6 mm from prior 1 cm. No new choline avid lesions. 02/28/2021 - 09/2021 Biological/Targeted/Hormone Therapy Initiated Olaparib 300 mg BID. Shortly after starting Olaparib, he developed multiple side effects including headaches, nausea, back pain, lightheadedness. He decreased his dose to 1 tablet in the morning and two in the evening instead of 2 tablets twice daily. 06/25/2021 Other 06/25/2021: PSA 10.5 ng/mL 09/23/2021: PSA 9.6 ng/mL 11/10/2021: PSA 32.8 ng/mL 06/25/2021 Critical Imaging Imaging was unchanged with mild uptake in the right sternum and midthoracic vertebral body. No new choline evidence of metastatic disease. 09/23/2021 Critical Imaging PSMA scan demonstrates multiple PSMA avid osseous metastasis with a PSMA expression score of 2. 11/11/2021 - Biological/Targeted/Hormone Therapy Radioligand Therapy Pluvicto: Cycle 1: 11/11/2021 Cycle 2: 12/23/2021 Cycle 3: 02/03/2022 Cycle 4: 03/17/2022 Cycle 5: 04/28/2022 Cycle 6: 06/09/2022 12/22/2021 Other 12/22/2021: PSA 29.3 ng/mL 02/02/2022: PSA 17.2 ng/mL 03/17/2022: PSA 10.3 ng/mL 04/27/2022: PSA 5.7 ng/mL 06/09/2022: PSA 3.3 ng/mL 08/03/2022: PSA 6.5 ng/mL 07/2022 - 02/2023 Biological/Targeted/Hormone Therapy Re-started on Olaparib and Zytiga with prednisone. Continued with androgen deprivation therapy 11/05/2022 Critical Imaging PSA 9.8 ng/mL. Testosterone total <7.0 ng/dL Choline PET-CT IMPRESSION: 1. Mild progression of osseous metastatic disease. 2. Mediastinal lymph nodes demonstrate persistent avidity, indeterminate for reactive inflammation versus metastases. OSSEOUS DISEASE: Mildly increased uptake in several osseous lesions, including lower sternum with SUV max 4.5, T11 spinous process lesion with SUV max 2.7, and posterior left iliac bone lesion with SUV max 3.1, C3 vertebral body (SUV max 3.3, previously 2.2), T4 vertebral body (SUV max 4.4, previously 3), and posterior right iliac bone (SUV max 3.6, previously 1.9). Similar choline uptake of T7 right pedicle (SUV max 3.8, previously 3.5). 01/14/2023 Other 01/14/2023: PSA 19.20 ng/mL 01/19/2023: PSA 22.10 ng/mL 01/22/2023 Critical Imaging PSMA PET-CT scan demonstrated multiple scattered radiotracer positive osseous lesions including school admissions representative examples involving the T2 vertebral body, SUV max 26.7, T4 vertebral body, SUV max 20.6,and right posterior iliac bone, SUV max 26.9. 02/05/2023 - 02/05/2023 Radiation Therapy 800 cGy in 1 fraction to the sternum and T3 - T8 02/05/2023 - 02/05/2023 Radiation Therapy Single fraction radiotherapy to the sternum and T3-T8 to a total dose of 800 cGy 02/15/2023 Other PSA 21.2 ng/mL 02/18/2023 Other Follow up with Dr. Vicente. He recommended the patient pursue cytotoxic chemotherapy either in the form of Jevtana plus carboplatin and/or repeat treatment with Taxotere plus carboplatin. Patient wantedto pursue treatment with Dr. Mott 02/18/2023 Critical Imaging MR musculoskeletal pelvis IMPRESSION: 1. Multiple enhancing intramedullary lesions in the right ilium and sacrum with corresponding elevated PSMA expression on the prior PET/CT, compatible with osseous metastatic disease. 2. Multiple pelvic insufficiency fractures involving bilateral pubic bodies and irina and left acetabulum as described. 02/24/2023 - 02/24/2023 Radiation Therapy Radiotherapy to the left 7th and 8th ribs delivered in one fraction to a total dose of 800 cGy. 03/16/2023 Other PSA 22 ng/mL 02/2023 - Biological/Targeted/Hormone Therapy Initiated pembrolizumab with Dr. Mott. Continued on Eligard injection 04/09/2023 Critical Imaging PSMA PET/CT IMPRESSION: - Multifocal new intensely tracer avid osseous metastases since the prior study from 11/05/2022, Multifocal hypermetabolic tracer avid osseous metastases involving pelvic bones, sacrum, cervical, thoracic and lumbar vertebrae, sternum, multifocal bilateral rib lesions as well as left posterior calvaria sclerotic lesion with SUV max measuring up to 80 in the L1 vertebral body lesion. -New mild tracer uptake in the right masseter muscle which could also be related to nonspecific focal myositis versus soft tissue metastasis. 04/15/2023 - Radiation Therapy Radiation Therapy Treatment Details (Noted on 04/12/2023) Sites: Thoracic spine, Left Rib Technique: No technique specified Goal: Palliative Planned Treatment Start Date: 04/15/2023 INTERVAL HISTORY The patient was seen and examined today with Dr. Tejeda. The patient reports pain continues to be present in the left chest, sometimes radiating up to his lower sternum. He does not feel the pain is any worse since our last visit last week. He reports occasional pain in the right chest that is very intermittent. He reports this is not any worse either. He continues taking scheduled ibuprofen and Tylenol every 3 hours, along with hydromorphone. He triesto only take 2 tablets hydromorphone each day, but sometimes does have to take 3. He denies any pain throughout his back or hips. The patient does have a history of prior radiation treatment, as detailed above. The patient denies a history of connective tissue disorders or inflammatory bowel disease. The patient denies any implanted devices. His ECOG performance status is 1. REVIEW OF SYSTEMS Review of systems was negative except as documented above. PATIENT REPORTED SYMPTOM SCREEN FATIGUE (Scale: 0 = no fatigue; 10 = worst fatigue you can imagine): 8 PAIN (Scale: 0 = no pain; 10 = worst pain you can imagine): 6 OVERALL QUALITY OF LIFE (Scale: 0 = as bad as can be; 10 = as good as can be): 5 OBJECTIVE BP (!) 113/49 (BP Location: Right arm, Patient Position: Sitting, Cuff Size: Regular) Pulse 95 Temp 36.8 ??C (Temporal) Wt 82.9 kg BMI 28.55 kg/m?? PHYSICAL EXAM General: Patient is alert and oriented in no apparent distress. Spine: There is no tenderness to palpation of the spine. Chest: There is point tenderness to palpation of the left lower anterior chest and inferior sternum. ASSESSMENT / PLAN #1 pT2c, N0, MX, RO, [place] 3+3, PSA 4.6 adenocarcinoma of the prostate s/p robotic-assisted radical prostatectomy on July 01, 2004 #2 Salvage radiation therapy to the prostate fossa completed on November 29, 2013 #3 Intermittent androgen deprivation therapy with leuprolide from 2014 through 2017 #4 Leuprolide re-initiated on August 17, 2018 #5 Zytiga with prednisone from 2018 through 2020 #6 Carboplatin plus docetaxel chemotherapy x 6 cycles completed on January 31, 2021 #7 Olaparib from February 2021 through September 2021 #8 Pluvicto therapy from October 2021 through May 2022 #9 Olaparib and Zytiga/prednisone re-initiated in July 2022; DC'd February 2023 #10 PSMA PET/CT scan on January 22, 2023 demonstrated multiple osseous lesions with migratory pain in the thoracic spine, sternum, and ribs #11 Radiotherapy to T3-T8 and sternum, 8 Gy in 1 fraction on February 05, 2023 #12 Radiotherapy to left 7th and 8th ribs, 8 Gy in 1 fraction on February 24, 2023 #13 Pembrolizumab with Eligard injection started February 2023 It was a pleasure to meet with Al today. We reviewed his most recent PET/CT imaging which demonstrated osseous disease to multiple areas, including pelvic bones, sacrum, cervical, thoracic and lumbarvertebrae, sternum, and multifocal bilateral rib lesions. We discussed the risks, benefits, and alternatives of radiotherapy in this setting. We discussed our recommendations of repeating radiation his left 7th and 8th ribs and sternum in 5 fractions. I discussed the logistics, as well as, the acute and chronic side effects of treatment in detail. The acute side effects may include, but are not limited to, pain flare, skin irritation, fatigue, andmild cough. Long-term side effects we will be minimal. The patient was provided with a written summary of recommendations. His questions were answered to their verbalized satisfaction. After discussion, the patient verbally stated that he would like to proceed with treatment. He willundergo CT simulation today. We anticipate starting radiation therapy on April 16. Patient seen in collaboration with Dr. Tejeda, please review his attestation for additional information. The patient was provided with our contact information. He was asked to contact us with questions or concerns. He verbally expressed his understanding of the plan. EDUCATION Ready to learn, no apparent learning barriers were identified; learning preferences include listening. Explained diagnosis and treatment plan; patient expressed understanding of the content. I personally spent 30 minutes in care of the patient today. Time includes both non face to face andface to face patient care. Signed by: Florecita Starks APRN, C.N.P., Tim 04/13/2023 1:57 PM TRANSITIONS MANAGER RN [facility] [address] [place] [address] SITIONS MANAGER RN Associated attestation - Gurwinder Tejeda M.D. - 04/13/2023 4:03 PM TRANSITIONS MANAGER RN I saw and evaluated the patient and participated in the savage portions of the service. I reviewed thedocumentation of Florecita Starks C.N.P. and agree with the findings and plan. Mr. Lashell Gates is a 77 y.o. 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 He completed radiation treatment to T3- T8 and sternum on February 05, 2023. He completed radiation treatment to left lateral 7th-9th ribs on February 24, 2023. He is having an increase in pain in the previously radiated left ribcage, along with new pain in the right chest. He is managing his pain with Dilaudid 2 mg twice daily or 3 times daily. He is also taking acetaminophen a1000 mg every 6 hours alternating with ibuprofen 600 mg every 6 hours. He thinks the ibuprofen is upsetting his stomach. A PET/CT scan showed persistent areas of disease in his sternum, thoracic spine, and scattered small areas in his left ribcage. On exam, the patient appears fatigued but well. He is here today with his Diana. I independently reviewed the patient's PET/CT scan from April 09, 2023 and compared to his PET/CTscan from January 22, 2023. I recommend that we retreat the left seventh and ninth ribs and also the patient's sternum treatingboth areas to a dose of 20 Gy in 5 fractions. For a complete listing of the acute and chronic side effects of treatment, please see Ms. Starks's note. He will continue with scheduled Tylenol but discontinue scheduled ibuprofen and now take it only asneeded. After this discussion, the patient's questions and those of his spouse were answered to their verbalized satisfaction. He stated the would like to proceed with treatment and signed the consent form. He will undergo CT simulation today. We will endeavor to begin treatment on Sunday, April 16, 2023. Of note, he is receiving pembrolizumab infusions at [facility] under the care of Dr. Mott. He is scheduled for another infusion next Wednesday. We will contact Dr. Mott officeto inquire about postponing that infusion by 1 week. I have spent 20 minutes caring for this patient including [id number] and [id number]-face time. Signed by: Gurwinder Tejeda M.D. 04/13/23 4:03 PM TRANSITIONS MANAGER RN [facility] documented in this encounter Miscellaneous Notes * Addendum Note - Lorin Ward C.N.ATavon - 04/13/2023 1:00 PM CSTEncounter addended by: Lorin Ward C.NVero on: 04/14/2023 7:18 AM Actions taken: Letter saved SITIONS MANAGER RN * Addendum Note - Gurwinder Tejeda M.D. - 04/13/2023 1:00 PM CSTEncounter addended by: Gurwinder Tejeda M.D. on: 04/15/2023 9:28 AM Actions taken: Order list changed, Diagnosis association updated SITIONS MANAGER RN documented in this encounter Plan of Treatment Upcoming Encounters Date Type Department Care Team (Late st Contact Info) Description 04/26/2023 3:15 PM TRANSITIONS MANAGER RN Appointment Department of Radiation Oncology in [place], [place] [address] [place] [address] Gurwinder Tejeda M.D. [address] [place] [address] 05/03/2023 1:00 PM TRANSITIONS MANAGER RN Appointment Department of Laboratory Medicine in [address] [phone] Carson Fletcher M.D. [address] [place] [phone] 05/03/2023 1:10 PM TRANSITIONS MANAGER RN Appointment Department of Laboratory Medicine in [address] [phone] Carson Fletcher M.D. [address] [place] [phone] 2023 2:30 PM TRANSITIONS MANAGER RN Virtual Visit Division of Pulmonary Medicine in [address] [phone] Carson Fletcher M.D. [address] [place] [phone] 07/05/2023 11:20 AM CDT Lab Department of Laboratory Medicine and Pathology, [facility] in [address] [phone] Kallie Rosales APRN, C.N.P., M.S. [address] [place] [phone] 07/05/2023 12:45 PM CDT Appointment Department of Radiology, [facility] in [place], [place] [address] [place] [phone] Kallie Rosales APRN, C.N.P., M.S. [address] [place] [phone] 07/06/2023 11:30 AM CDT Office Visit Department of Urology in [place], [place] [address] [place] [phone] Sushant Vicente M.D. [address] [place] [phone] Scheduled Orders Name Type Priority Associated Diagnoses Orde r Schedule Prior Auth Rad Tx Radiation Oncology Routine Secondary Malignant Neoplasm Bone (HCC) Ordered: 04/15/2023 Scheduled Referrals Name Type Priority Associated Diagnoses Order Schedule Radiation Oncology office visit (clinic) Outpatient Referral Routine Once for 1 Occurrences starting 04/13/2023 until 04/13/2023 documented as of this encounter Visit Diagnoses Diagnosis Primary Malignant Neoplasm Of Prostate (HCC)- Primary Secondary Malignant Neoplasm Bone (HCC) documented in this encounter Additional Health Concerns Infection Onset Date Last Indicated Resolved Time Protective Environment 07/31/2022 07/31/2022 Assessment Noted Time PHQ-9 Depression Total Score: 2 10/13/19 14 10:45 AM CDT documented as of this encounter Care Teams Manager Document Relationship Specialty Start Date End Date Elsewhere, Pcp PCP - General Family Medicine 12/29/19 documented as of this encounter
--- OUTSIDE RECORDS SUMMARY | 2023-04-25 18:59 | XMS_ITS ---
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 Refills provided. Acquired Absence Of Other Genital Organs 019 Overview: Overview: -robotic-assisted radical prostatectomy by Dr. Duque July 01, 2004. Pathology revealed [place] 3 + 3, pT2c, N0, MX, R0 adenocarcinoma of the prostate. -He had biochemical recurrence and underwent salvage external beam radiation treatment that was completed November 29, 2013. 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 Mott in Hematology/oncology in the [facility]. He has been experiencing shortness of [...] current treatment. Refill provided. 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 Past Plans Radiation Treatments * Plan Last Treated On Elapsed Days Fractions Treated Prescribed Fraction Dose Prescribed Total Dose [id number] b 04/21/2023 5 4 of 5 400 cGy 2,000 cGy [id number] 02/24/2023 0 1 of 1 800 cGy 800 cGy [id number] n 02/05/2023 0 1 of 1 800 cGy 800 cGy Reference Point Last Treated On Elapsed Days Session Dose Total Dose [id number] SterRib 04/21/2023 5 400 cGy 1,600 cG y [id number] RibsL 02/24/2023 0 800 cGy 800 cGy [id number] 02/05/2023 0 800 cGy 800 cGy Resolved Problems Problem Noted Date Diagnosed Date Resolved Date Asymmetry Breast 08/06/2017 08/11/2019 Smoking Tobacco Use Personal History 08/06/2017 08/08/2018 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
--- OUTSIDE RECORDS SUMMARY | 2023-04-25 18:59 | XMS_ITS | Encounter Summary ---
Author Name Unknown Organization [facility] Address [address] [place] [address] Care Team Providers Care Quality Improvement Engineer Name Role Phone Elsewhere, Pcp Primary Care Provider Unavailabl e Reason for Referral * Radiation Therapy (Routine) - Authorized Specialty Diagnoses / Procedures Referred By Contac t Referred To Contact Diagnoses Secondary Malignant Neoplasm Bone (HCC) Procedures Management Visit Gurwinder Tejeda M.D. [address] [place] [address] [facility] Region Referral ID Status Reason Start Date Expiration Date V isits Requested Visits Authorized [id number] Authorized 02/18/2023 02/18/2024 10 10 EL PILE HAMMER OPERATOR Reason for Visit * Radiation Therapy (Routine) - Authorized Specialty Diagnoses / Procedures Referred By Contac t Referred To Contact Diagnoses Secondary Malignant Neoplasm Bone (HCC) Procedures Management Visit Gurwinder Tejeda M.D. [address] [place] [address] [facility] Region Referral ID Status Reason Start Date Expiration Date V isits Requested Visits Authorized [id number] Authorized 02/18/2023 02/18/2024 10 10 Encounter Details Date Type Department Care Team (Latest Contact Info) Description 04/21/2023 12:29 PM DIESEL PILE HAMMER OPERATOR - 04/21/2023 8:13 PM DIESEL PILE HAMMER OPERATOR Hospital Encounter Department of Radiation Oncology in [address] [phone] Gurwinder Tejeda M.D. [address] [place] [address] Secondary Malignant Neoplasm Bone (HCC) Social History Tobacco Use Types Packs/Day Years Used Date Smoking Tobacco: Some Days Cigarettes 0.3 30 Passive Smoke Exposure: Past Smokeless Tobacco: Never Alcohol Use Standard Drinks/Week Comments Yes 2 (1 standard drink = 0.6 oz pur e alcohol) [facility] Utilities Answer Date Recorded In the past 12 months has e [employer], gas, oil, or water [employer] threatened to shut off services in your [...] often do you attend chur ch or yazidi services? Patient declined 02/03/2022 Do you belong to any clubs o r organizations such as scientology groups, unions, fraternal or athletic groups, or [...] Answer Date Recorded PHQ-2 Score 2 09/24/2021 [facility] - Occupational [...] Comments Blood Pressure 117/56 04/21/2023 1:03 PM DIESEL PILE HAMMER OPERATOR Pulse 88 04/21/2023 1:03 PM DIESEL PILE HAMMER OPERATOR Temperature 36.6 ??C (97.9 ??F) 04/21/2023 1:03 PM CS T Respiratory Rate - - Oxygen Saturation - - Inhaled Oxygen Concentration - - Weight 81.8 kg (180 lb 5.4 oz) 04/21/2023 1:03 P M DIESEL PILE HAMMER OPERATOR Height - - Body Mass Index 28.17 03/09/2023 3:43 PM DIESEL PILE HAMMER OPERATOR documented in this encounter Medications at Time [...] mg x 2, 2 weeks apart at [facility] on 06/10/2022 and 06/24/2022. 0 06/10/2022 sulfamethoxazole-trimeth oprim (BACTRIM) 400-80 mg per tablet Take 1 tablet by mouth daily. 90 tablet 3 09/14/2022 UNABLE TO FIND as needed. Prochlorerazone: 0 zinc chelated 50 mg tablet tablet Take 50 mg by mouth daily. 0 documented as of this encounter Progress Notes * Gurwinder Tejeda M.D. - 04/21/2023 1:15 PM CST SUBJECTIVE REASON FOR VISIT Evaluation for side effects while receiving radiation treatment for 1. Secondary Malignant Neoplasm Bone (HCC) SUPERVISED BY: Gurwinder Tejeda M.D. ([phone]) HISTORY OF PRESENT ILLNESS Mr. Lashell Gates is a 77 y.o. 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 He completed radiation treatment to T3- T8 and sternum on February 05, 2023. He completed radiation treatment to left lateral 7th-9th ribs on February 24, 2023. He is having pain inthe previously radiated left ribcage, along with new pain in the right chest. A PET/CT scan showed persistent areas of disease in his sternum, thoracic spine, and scattered small areas in his left ribcage. Treatment Course: [id number] Plan ID Fractions Dose / Fraction (cGy) Dose Treated (cGy) Dose Planned (cGy) First Treatment Last Treatment Elapsed Days [id number] 400 1600 2000 04/16/2023 04/21/2023 5 Course Summary 04/16/2023 04/21/2023 5 Oncology History Primary Malignant Neoplasm Of Prostate (HCC) 02/21/2004 Other PSA 4.6 ng/mL 07/01/2004 Surgery and Procedures Underwent robotic-assisted radical prostatectomy by Dr. Duque. Pathology revealed [place] 3 + 3, pT2c, N0, MX, R0 [...] in [address] Cole at [place], [place] for a biochemical recurrence. 12/26/2013 Other [...] multiple scattered radiotracer positive osseous lesions including pest control service representative examples involving the T2 vertebral body, [...] nonspecific focal myositis versus soft tissue metastasis. 04/16/2023 - Radiation Therapy Radiation Therapy Treatment Details (Noted on 04/12/2023) Sites: Thoracic spine, Left Rib Technique: 3D ROLLER PRINTER Goal: Palliative Planned Treatment Start Date: 04/16/2023 The patient was seen and examined today with Dr. Tejeda. The patient reports fatigue has increased with this course of radiation therapy. Patient rates his sternum pain at a 4-5 out of 10. Patient notes that his sternum pain has improved since starting radiation therapy. Patient also reports dry mouth and mild dysphagia. He is coughing up more phlegm with radiation therapy. He is trying to switch to more softer based foods. He is taking 2 mg of Dilaudid at 9 am and 9 pm. He takes Tylenol twice a day and Ibuprofen twice a day. He is not taking Oxycodone. He denies fevers. Patient does notice nocturia x 4 which. PATIENT REPORTED SYMPTOM SCREEN FATIGUE (Scale: 0 = no fatigue; 10 = worst fatigue you can imagine): 8-9 PAIN (Scale: 0 = no pain; 10 = worst pain you can imagine): 4-5 OVERALL QUALITY OF LIFE (Scale: 0 = as bad as can be; 10 = as good as can be): 4-5 OBJECTIVE BP 117/56 (BP Location: Right arm, Patient Position: Sitting, Cuff Size: Regular) Pulse 88 Temp36.6 ??C (Temporal) Wt 81.8 kg BMI 28.17 kg/m?? PHYSICAL EXAM General: Alert and oriented in no apparent distress. ASSESSMENT / PLAN #1 pT2c, N0, MX, RO, [place] 3+3, PSA 4.6 adenocarcinoma of the prostate [...] Pembrolizumab with Eligard injection started February 2023 #14 Radiation therapy to PET+ lesions on left 3rd, 6th, 7th, 8th ribs and sternum initiated on April 16, 2023; anticipated completion on April 22, 2023 I reviewed Dry Mouth and Esophagitis education pamphlets with patient today. I provided patient with sample of Biotene today. Patient is to time Ibuprofen dosing to later evening to help manage nocturia. Patient can take Mucinex twice a day for the management of phlegm and can also start using bedside humidifier. Patient is to wait 30 minutes after taking pain medication to work on his meals to help ease dysphagia. Radiation related side effects should take 2-3 weeks to notice more improvement.Fatigue can taken several weeks to months to slowly improve. Patient is scheduled for Pembrolizumabinfusion and follow up with Dr. Mott this coming Wednesday. We will keep Radiation Oncology follow upto an as needed basis only. He will contact us with any questions or concerns. We will continue with radiation treatment as planned. Signed by: Mariajose Wick R.N. 04/21/2023 1:32 PM DIESEL PILE HAMMER OPERATOR I saw and evaluated the patient and participated in the savage portions of the service. I reviewed thedocumentation of Mariajose Wick R.N. and agree with the findings and plan. The patient appears fatigued. He is tolerating treatment well with some improvement in his pain. He will complete treatment as planned tomorrow. He has follow-up with Dr. Mott's team on Wednesday. I will not schedule a formal follow-up in Radiation Oncology Clinic, but he understands the he can contact us at any time with questions or concerns. He verbalized satisfaction with this plan. Signed by: Gurwinder Tejeda M.D. 04/21/2023 8:12 PM DIESEL PILE HAMMER OPERATOR [facility] [address] [place] [address] EL PILE HAMMER OPERATOR documented in this encounter Miscellaneous Notes * Addendum Note - Lorin Ward C.NVero - 04/21/2023 1:15 PM CSTEncounter addended by: Lorin Ward C.NVero on: 04/22/2023 7:41 AM Actions taken: Letter saved EL PILE HAMMER OPERATOR documented in this encounter Plan of Treatment Upcoming Encounters Date Type Department Care Team (Late st Contact Info) Description 04/26/2023 3:15 PM DIESEL PILE HAMMER OPERATOR Appointment Department of Radiation Oncology in [place], [place] [address] [place] [phone] Gurwinder Tejeda M.D. [address] [place] [phone] 05/03/2023 1:00 PM DIESEL PILE HAMMER OPERATOR Appointment Department of Laboratory Medicine in [address] [phone] Carson Fletcher M.D. [address] [place] [phone] 05/03/2023 1:10 PM DIESEL PILE HAMMER OPERATOR Appointment Department of Laboratory Medicine in [address] [phone] Carson Fletcher M.D. [address] [place] [phone] 2023 2:30 PM DIESEL PILE HAMMER OPERATOR Virtual Visit Division of Pulmonary Medicine in [place], [place] [address] [place] [phone] Carson Fletcher M.D. [address] [place] [phone] 07/05/2023 11:20 AM CDT Lab Department of Laboratory Medicine and Pathology, [place], [place] [address] [place] [phone] Kallie Rosales, ZUNILDA, C.N.P., M.S. [address] [place] [phone] 07/05/2023 12:45 PM CDT Appointment Department of Radiology, [facility] in [place], [place] [address] [place] [phone] Kallie Rosales APRN, C.N.P., M.S. [address] [place] [phone] 07/06/2023 11:30 AM CDT Office Visit Department of Urology in [place], [place] [address] [place] [address] Sushant Vicente M.D. [address] [place] [address] Scheduled Orders Name Type Priority Associated Diagnoses Orde r Schedule Management Visit Radiation Oncology Routine Secondary Malignant Neoplasm Bone (HCC) Once for 1 Occurrences starting 04/21/2023 until 04/21/2023 documented as of this encounter Visit Diagnoses Diagnosis Secondary Malignant Neoplasm Bone (HCC) documented in this encounter Additional Health Concerns Infection Onset Date Last Indicated Resolved Time Protective Environment 07/31/2022 07/31/2022 Assessment Noted Time PHQ-9 Depression Total Score: 2 10/13/19 14 10:45 AM CDT documented as of this encounter Care Teams Quality Improvement Engineer Relationship Specialty Start Date End Date Elsewhere, Pcp PCP - General Family Medicine 12/29/19 documented as of this encounter
--- OUTSIDE RECORDS SUMMARY | 2023-04-25 18:59 | XMS_ITS | Encounter Summary ---
Author Name Unknown Organization [facility] Address [address] [place] [address] Care Team Providers Care Hook Tender Name Role Phone Elsewhere, Pcp Primary Care Provider Unavailabl e Reason for Visit * Reason Onset Date Comments Follow-up Orders 04/12/2023 Encounter Details Date Type Department Care Team (Latest Contact Info) Description 04/12/2023 Clinical Communication Department of Urology in [place], [place] [address] [place] [phone] Sushant Vicente M.D. [address] [place] [phone] Follow-up Orders Social History Tobacco Use Types Packs/Day Years Used Date Smoking Tobacco: Some Days Cigarettes 0.3 30 Passive Smoke Exposure: Past Smokeless Tobacco: Never Alcohol Use Standard Drinks/Week Comments Yes 2 (1 standard drink = 0.6 oz pur e alcohol) [facility] Utilities Answer Date Recorded In the past 12 months has [employer] gas, oil, or water [employer] threatened to shut off services in your [...] How often do you attend chur or restoration services? Patient declined 02/03/2022 Do you belong to any clubs o r organizations such as quaker groups, unions, fraternal or athletic groups, or [...] Answer Date Recorded PHQ-2 Score 2 09/24/2021 [facility] - [...] your living situation today? I have a [facility] place to live 04/03/2023 Education Answer Date [...] st Contact Info) Description 04/26/2023 3:15 PM STRUCTURAL DESIGN ENGINEER Appointment Department of Radiation Oncology in [place], [place] [address] [place] [phone] Gurwinder Tejeda M.D. [address] [place] [address] 05/03/2023 1:00 PM STRUCTURAL DESIGN ENGINEER Appointment Department of Laboratory Medicine in [address] [phone] Carson Fletcher M.D. [address] [place] [phone] 05/03/2023 1:10 PM STRUCTURAL DESIGN ENGINEER Appointment Department of Laboratory Medicine in [address] [phone] Carson Fletcher M.D. [address] [place] [phone] 2023 2:30 PM STRUCTURAL DESIGN ENGINEER Virtual Visit Division of Pulmonary Medicine in [place], [place] [address] [place] [phone] Carson Fletcher M.D. [address] [place] [phone] 07/05/2023 11:20 AM CDT Lab Department of Laboratory Medicine and Pathology, [facility] in [place], [place] [address] [place] [phone] Kallie Rosales APRN, C.N.P., M.S. [address] [place] [phone] 07/05/2023 12:45 PM CDT Appointment Department of Radiology, [facility], in [place], [place] [address] [place] [address] Kallie Rosales APRN, C.N.P., M.S. [address] [place] [phone] 07/06/2023 11:30 AM CDT Office Visit Department of Urology in [place], [place] [address] [place] [phone] Sushant Vicente M.D. [address] [place] [phone] documented as of this encounter Visit Diagnoses Not on filedocumented in this encounter Additional Health Concerns Infection Onset Date Last Indicated Resolved Time Protective Environment 07/31/2022 07/31/2022 Assessment Noted Time PHQ-9 Depression Total Score: 2 10/13/19 14 10:45 AM CDT documented as of this encounter Care Teams Hook Tender Relationship Specialty Start Date End Date Elsewhere, Pcp PCP - General Family Medicine 12/29/19 documented as of this encounter
--- OUTSIDE RECORDS SUMMARY | 2023-04-25 18:59 | XMS_ITS | Encounter Summary ---
Author Name Unknown Organization [facility] Address [address] [place] [address] Care Team Providers Care Glove Boarder Name Role Phone Elsewhere, Pcp Primary Care Provider Unavailabl e Encounter Details Date Type Department Care Team (Late st Contact Info) Description 04/21/2023 12:29 PM [facility] Hospital Encounter Department of Radiation Oncology in [place], [place] [address] [place] [phone] Gurwinder Tejeda M.D. [address] [place] [phone] Social History Tobacco Use Types Packs/Day Years Used Date Smoking Tobacco: Some Days Cigarettes 0.3 30 Passive Smoke Exposure: Past Smokeless Tobacco: Never Alcohol Use Standard Drinks/Week Comments Yes 2 (1 standard drink = 0.6 oz pur e alcohol) [facility] Utilities Answer Date Recorded In the past 12 months has [facility] [employer], oil, or water [employer] threatened to shut off services in your [...] week 02/03/2022 How often do you attend [facility] or yazidism services? Patient declined 02/03/2022 Do you belong to any clubs o r organizations such as orthodox groups, unions, fraternal or athletic groups, or [...] Answer Date Recorded PHQ-2 Score 2 09/24/2021 [facility] - Occupational [...] your living situation today? I have a [facility] place to live 04/03/2023 Education [...] st Contact Info) Description 04/26/2023 3:15 PM SLICE CUTTING MACHINE OPERATOR HELPER Appointment Department of Radiation Oncology in [place], [place] [address] [place] [phone] Gurwinder Tejeda M.D. [address] [place] [phone] 05/03/2023 1:00 PM SLICE CUTTING MACHINE OPERATOR HELPER Appointment Department of Laboratory Medicine in [address] [phone] Carson Fletcher M.D. [address] [place] [phone] 05/03/2023 1:10 PM SLICE CUTTING MACHINE OPERATOR HELPER Appointment Department of Laboratory Medicine in [address] [phone] Carson Fletcher M.D. [address] [place] [phone] 2023 2:30 PM SLICE CUTTING MACHINE OPERATOR HELPER Virtual Visit Division of Pulmonary Medicine in [place], [place] [address] [place] [phone] Carson Fletcher M.D. [address] [place] [phone] 07/05/2023 11:20 AM CDT Lab Department of Laboratory Medicine and Pathology, [facility] in [place], [place] [address] [place] [phone] Kallie Rosales APRN, C.N.P., M.S. [address] [place] [phone] 07/05/2023 12:45 PM CDT Appointment Department of Radiology, [facility] in [place], [place] [address] [place] [address] Kallie Rosales APRN, C.N.P., M.S. [address] [place] [phone] 07/06/2023 11:30 AM CDT Office Visit Department of Urology in [place], [place] [address] [place] [address] Sushant Vicente M.D. [address] [place] [phone] documented as of this encounter Visit Diagnoses Not on filedocumented in this encounter Additional Health Concerns Infection Onset Date Last Indicated Resolved Time Protective Environment 07/31/2022 07/31/2022 Assessment Noted Time PHQ-9 Depression Total Score: 2 10/13/19 14 10:45 AM CDT documented as of this encounter Care Teams Glove Boarder Relationship Specialty Start Date End Date Elsewhere, Pcp PCP - General Family Medicine 12/29/19 documented as of this encounter
--- OUTSIDE RECORDS SUMMARY | 2023-04-25 18:59 | XMS_ITS | Encounter Summary ---
Author Name Unknown Organization [facility] Address [address] [place] [id number] Care Team Providers Care Grinder Set Up Operator Name Role Phone Elsewhere, Pcp Primary Care Provider Unavailabl e Encounter Details Date Type Department Care Team (Late st Contact Info) Description 04/22/2023 Clinical Communication Department of Radiation Oncology in [place], [place] [address] [place] [phone] Gurwinder Tejeda M.D. [address] [place] [address] Social History Tobacco Use Types Packs/Day Years Used Date Smoking Tobacco: Some Days Cigarettes 0.3 30 Passive Smoke Exposure: Past Smokeless Tobacco: Never Alcohol Use Standard Drinks/Week Comments Yes 2 (1 standard drink = 0.6 oz pur e alcohol) [facility] Utilities Answer Date Recorded In the past 12 months has [facility] [email or web address], oil, or water [employer] threatened to shut off services in your [...] often do you attend [facility] or temple services? Patient declined 02/03/2022 Do you belong to any clubs o r organizations such as rastafari groups, unions, fraternal or athletic groups, or [...] Answer Date Recorded PHQ-2 Score 2 09/24/2021 [facility] of Occupat ionaz Health - Occupational Stress Questionnaire Answer Date [...] your living situation today? I have a [facility] place to live 04/03/2023 Education Answer [...] AM CDT documented as of this encounter Miscellaneous Notes * Telephone Encounter - Mariajose Wick RTavonNTavon - 04/22/2023 1:17 PM CST Information Discussed Patient reports that he slept well last night but has fatigue today. Patient does not feel up for coming in for treatment today due to fatigue. He denies nausea, vomiting, cough, acute shortness of breath, chest pain, fevers, chills or new symptoms. PLAN Patient plans to come in for radiation treatment this coming Wednesday instead of today to get a breakdue to his fatigue. I will update our care team. Our desk will call him about Wednesday appointment time. Disposition/Recommendation: self-care - appropriate at this time, patient encouraged to call back with questions Information/Education: patient/caller able to teach back Caller agreeable to plan of care: yes The following references were used: nursing clinical judgement ETTER OPERATOR * Telephone Encounter - Karen Barnes - 04/22/2023 12:02 PM CST Patient Requests to Speak to a Specific Provider Reason for call: Current Symptoms the Patient is Experiencing: Patient is stating that he is so fatigued that he is unable to come to treatment today and would like to talk to someone on the care team Radiation treatment details: The patient has received radiation treatment, the most recent date being: Yesterday ETTER OPERATOR documented in this encounter Plan of Treatment Upcoming Encounters Date Type Department Care Team (Late st Contact Info) Description 04/26/2023 3:15 PM PRESETTER OPERATOR Appointment Department of Radiation Oncology in [address] [phone] Gurwinder Tejeda M.D. [address] [place] [phone] 05/03/2023 1:00 PM PRESETTER OPERATOR Appointment Department of Laboratory Medicine in [address] [phone] Carson Fletcher M.D. [address] [place] [phone] 05/03/2023 1:10 PM PRESETTER OPERATOR Appointment Department of Laboratory Medicine in [address] [phone] Carson Fletcher M.D. [address] [place] [phone] 2023 2:30 PM PRESETTER OPERATOR Virtual Visit Division of Pulmonary Medicine in [place], [place] [address] [place] [phone] Carson Fletcher M.D. [address] [place] [phone] 07/05/2023 11:20 AM CDT Lab Department of Laboratory Medicine and Pathology, [facility] in [place], [place] [address] [place] [phone] Kallie Rosales APRN, C.N.P., M.S. [address] [place] [phone] 07/05/2023 12:45 PM CDT Appointment Department of Radiology, [facility] in [place], [place] [address] [place] [phone] Kallie Rosales APRN, C.N.P., M.S. [address] [place] [phone] 07/06/2023 11:30 AM CDT Office Visit Department of Urology in [place], [place] [address] [place] [phone] Sushant Vicente M.D. [address] [place] [phone] documented as of this encounter Visit Diagnoses Not on filedocumented in this encounter Additional Health Concerns Infection Onset Date Last Indicated Resolved Time Protective Environment 07/31/2022 07/31/2022 Assessment Noted Time PHQ-9 Depression Total Score: 2 10/13/19 14 10:45 AM CDT documented as of this encounter Care Teams Grinder Set Up Operator Relationship Specialty Start Date End Date Elsewhere, Pcp PCP - General Family Medicine 12/29/19 documented as of this encounter
--- OUTSIDE RECORDS SUMMARY | 2023-04-25 18:59 | XMS_ITS | Encounter Summary ---
Author Name Unknown Organization [facility] Address [address] [place] [address] Care Team Providers Care President And Cmo Name Role Phone Elsewhere, Pcp Primary Care Provider Unavailabl e Encounter Details Date Type Department Care Team (Late st Contact Info) Description 04/16/2023 4:34 PM [facility] Hospital Encounter Department of Radiation Oncology in [place], [place] [address] [place] [phone] Gurwinder Tejeda M.D. [address] [place] [phone] Social History Tobacco Use Types Packs/Day Years Used Date Smoking Tobacco: Some Days Cigarettes 0.3 30 Passive Smoke Exposure: Past Smokeless Tobacco: Never Alcohol Use Standard Drinks/Week Comments Yes 2 (1 standard drink = 0.6 oz pur e alcohol) [facility] Utilities Answer Date Recorded In the past 12 months has [facility] [employer] oil, or water [employer] threatened to shut off services in your [...] week 02/03/2022 How often do you attend [facility] or sabianist services? Patient declined 02/03/2022 Do you belong to any clubs o r organizations such as hindu groups, unions, fraternal or athletic groups, or [...] Answer Date Recorded PHQ-2 Score 2 09/24/2021 [facility] of Occupat ional Health - Occupational [...] your living situation today? I have a [facility] place to live 04/03/2023 [...] st Contact Info) Description 04/26/2023 3:15 PM JUKEBOX CHECKER Appointment Department of Radiation Oncology in [place], [place] [address] [place] [phone] Gurwinder Tejeda M.D. [address] [place] [phone] 05/03/2023 1:00 PM JUKEBOX CHECKER Appointment Department of Laboratory Medicine in [address] [phone] Carson Fletcher M.D. [address] [place] [phone] 05/03/2023 1:10 PM JUKEBOX CHECKER Appointment Department of Laboratory Medicine in [address] [phone] Carson Fletcher M.D. [address] [place] [phone] 2023 2:30 PM JUKEBOX CHECKER Virtual Visit Division of Pulmonary Medicine in [place], [place] [address] [place] [address] Carson Fletcher M.D. [address] [place] [phone] 07/05/2023 11:20 AM CDT Lab Department of Laboratory Medicine and Pathology, [facility] in [place], [place] [address] [place] [phone] Kallie Rosales APRN, C.N.P., M.S. [address] [place] [phone] 07/05/2023 12:45 PM CDT Appointment Department of Radiology, [facility] in [place], [place] [address] [place] [phone] Kallie Rosales APRN, C.N.P., M.S. [address] [place] [phone] 07/06/2023 11:30 AM CDT Office Visit Department of Urology in [place], [place] [address] [place] [address] Sushant Vicente M.D. [address] [place] [phone] documented as of this encounter Visit Diagnoses Not on filedocumented in this encounter Additional Health Concerns Infection Onset Date Last Indicated Resolved Time Protective Environment 07/31/2022 07/31/2022 Assessment Noted Time PHQ-9 Depression Total Score: 2 10/13/19 14 10:45 AM CDT documented as of this encounter Care Teams President And Cmo Relationship Specialty Start Date End Date Elsewhere, Pcp PCP - General Family Medicine 12/29/19 documented as of this encounter
--- OUTSIDE RECORDS SUMMARY | 2023-04-25 19:00 | XMS_ITS | Encounter Summary ---
Author Name Unknown Organization [facility] Address [address] [place] [address] Care Team Providers Care Ruching Machine Operator Name Role Phone Elsewhere, Pcp Primary Care Provider Unavailabl e Reason for Referral * Outpatient (Routine) - Authorized Specialty Diagnoses / Procedures Referred By Brittni callejas Referred To Contact Pulmonary Medicine Carson Fletcher M.D. [address] [place] [phone] [facility] Referral ID Status Reason Start Date Expiration Date V isits Requested Visits Authorized [id number] Authorized 03/09/2023 03/08/2026 1 1 AL HEALTH TECHNICIAN Reason for Visit * Outpatient (Routine) - Closed Specialty Diagnoses / Procedures Referred By Brittni callejas Referred To Contact Pulmonary Carson Abarca M.D. [address] [place] [phone] [facility] Referral ID Status Reason Start Date Expiration Date Visits Re quested Visits Authorized [id number] Closed 12/22/2022 12/21/2025 1 1 Encounter Details Date Type Department Care Team (Latest Contact Info) Description 03/09/2023 4:00 PM ANIMAL HEALTH TECHNICIAN Office Visit Division of Pulmonary Medicine in [place], [place] [address] [place] [phone] Carson Fletcher M.D. 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 Patient declined 02/03/2022 Do you belong to any clubs o r organizations such as catholic groups, unions, fraternal or athletic groups, or [...] when you are drinking? 1 or 2 2 Q3: How often do you have si x or more drinks on one occasion? Never 02/03/2022 Overall Financial Resource Strain (CARDIA) Answe r Date Recorded How hard is it for you to pa y for the very basics like food, housing, medical care, and heating? Not very hard 02/03/2022 PHQ-2 Answer Date Recorded PHQ-2 Score 2 09/24/2021 [facility] - Occupational Stress Questionnaire Answer [...] to strenuous exercise (like a brisk walk)? 6 days 02/03/2022 On average, how many minutes do you engage in exercise at this level? 30 min 02/03/2022 Hunger Vital Sign Answer Date Recorded Within the past 12 months, y ou worried that your food would run out before you got the money to buy more. Never true 02/04/20 22 Within the past 12 months, t he food you bought just didn't last and you didn't have money to get more. Never true 02/03/2022 PRAPARE - Transportation Answer Date Re corded In the past 12 months, has l ack of transportation kept you from medical appointments or from getting medications? No 01/20 In the past 12 months, has l ack of transportation kept you from meetings, work, or from getting things needed for daily living? No 02/03/2022 Housing Stability Vital Sign Answer Walter e Recorded In the last 12 months, was t here a time when you were not able to pay the mortgage or rent on time? No 02/03/2022 In the last 12 months, how many places have you lived? 2 02/03/2022 In the last 12 months, was t here a time when you did not have a steady place to sleep or slept in a intermediate (including now)? No 02/03/2022 Nutrition Answer Date Recorded Nutrition: EVOO Fat Source No 02/03 On average, how many serving s of fruits and vegetables do you eat per day (serving size is equal to 1 cup or approximately the size of a tennis ball)? 2-3 02/03/2022 Dental Answer Date Recorded Dental: Regular Dentist Yes 02/04/20 Employment Answer Date Recorded Employment status Retired 02/03/2022 Education Answer Date Recorded What is the [...] Sign Reading Time Taken Comments Blood Pressure - - Pulse - - Temperature - - Respiratory Rate - - Oxygen Saturation - - Inhaled Oxygen Concentration - - Weight 81.1 kg (178 lb 10.9 oz) 03/09/2023 3:43 PM ANIMAL HEALTH TECHNICIAN Height 170.4 cm (5' 7.09) 03/09/2023 3:43 PM CS T Body Mass Index 27.91 03/09/2023 3:43 PM ANIMAL HEALTH TECHNICIAN documented in this encounter Progress Notes * Carson Fletcher M.D. 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 was last seen by me on December 22, 2022. Since then he has not experienced any change inrespiratory symptoms, and he has not developed any signs or symptoms suggesting reactivation of ANCA associated vasculitis. I reviewed the CT images of the PET-CT obtained for his prostate cancer follow- up on January 22, 2023, and there has been no significant worsening of interstitial changes or of the pulmonary parenchymal changes attributed to his GPA. The most recent laboratory test results in our system dated February 15, 2023. These show a mild microcytic anemia with hemoglobin of 12.9 and MCV 121.5, undoubtedly the result of his therapy for theprostate cancer. The metabolic panel is unremarkable except for a mild elevation of fasting blood sugar of 117. His PR3 ANCA remains positive at 3.0, but this constitutes further gradual decline since February of last year when it was >8.0. 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 We will continuequarterly monitoring. To this end I will scheduled tests for him to coincide with his next urology visit here the week of May 30, during which time I will not be at the clinic, but I will discussthe results with him on a phone return visit on June 06. AL HEALTH TECHNICIAN documented in this encounter Plan of Treatment Upcoming Encounters Date Type Department Care Team (Late st Contact Info) Description 04/26/2023 3:15 PM ANIMAL HEALTH TECHNICIAN Appointment Department of Radiation Oncology in [place], [place] [address] [place] [phone] Gurwinder Tejeda M.D. [address] [place] [phone] 05/03/2023 1:00 PM ANIMAL HEALTH TECHNICIAN Appointment Department of Laboratory Medicine in [address] [phone] Carson Fletcher M.D. [address] [place] [phone] 05/03/2023 1:10 PM ANIMAL HEALTH TECHNICIAN Appointment Department of Laboratory Medicine in [address] [phone] Carson Fletcher M.D. [address] [place] [phone] 2023 2:30 PM ANIMAL HEALTH TECHNICIAN Virtual Visit Division of Pulmonary Medicine in [place], [place] [address] [place] [phone] Carson Fletcher M.D. [address] [place] [phone] 07/05/2023 11:20 AM CDT Lab Department of Laboratory Medicine and Pathology, [facility], in [place], [place] [address] [place] [phone] Kallie Rosales APRN, C.N.Hiwot., M.S. [address] [place] [phone] 07/05/2023 12:45 PM CDT Appointment Department of Radiology, [facility], in [place], [place] [address] [place] [phone] Kallie Rosales APRN, C.N.Hiwot., M.S. [address] [place] [phone] 07/06/2023 11:30 AM CDT Office Visit Department of Urology in [place], [place] [address] [place] [phone] Sushant Vicente M.D. 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) Expected: 05/03/2023, Expires: 06/07/2024 CRP (C-Reactive Protein) Lab Routine 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) Expected: 05/03/2023, Expires: 06/07/2024 Sedimentation Rate Lab Routine 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) Expected: 05/03/2023, Expires: 06/07/2024 Glucose, Fasting Lab Routine 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) Expected: 05/03/2023, Expires: 06/07/2024 Phosphorus Inorganic Lab Routine 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) Expected: 05/03/2023, Expires: 06/07/2024 Uric Acid Lab Routine 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) Expected: 05/03/2023, Expires: 06/07/2024 Urinalysis with Microscopic: Urine, Midstream Lab Routine 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) Expected: 05/03/2023, Expires: 06/07/2024 CD20 on B Cells Lab Routine 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) Expected: 05/03/2023, Expires: 06/07/2024 Scheduled Referrals Name Type Priority Associated Diagnoses Orde r Schedule Pulmonary Medicine office visit (clinic) Outpatient Referral Routine Expected: 2023, Expires: 06/07/2024 documented as of this encounter Visit Diagnoses Diagnosis 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
--- OUTSIDE RECORDS SUMMARY | 2023-04-25 19:00 | XMS_ITS | Encounter Summary ---
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 [address] [place] [phone] [facility] Region Referral ID Status Reason Start Date Expiration Date Visits Re quested Visits Authorized [id number] Closed 04/06/2023 04/05/2024 1 1 GER LOADER Reason for Visit * MRI/CAT/PET Scan (Routine) - Closed Specialty Diagnoses / Procedures Referred By Contac t Referred To Contact Diagnoses Primary Malignant Neoplasm Of Prostate (HCC) Secondary Malignant Neoplasm Bone (HCC) Rising Prostate Specific Antigen Following Treatment For Malignant Cancer Of Prostate Procedures PET CT Skull to Thigh PSMA Florecita Starks APRN, C.N.P., D.N.P. [address] [place] [phone] [facility] Region Referral ID Status Reason Start Date Expiration Date Visits Re quested Visits Authorized [id number] Closed 04/06/2023 04/05/2024 1 1 Encounter Details Date Type Department Care Team (Late st Contact Info) Description 04/09/2023 11:52 AM BLUNGER LOADER - 04/09/2023 11:59 PM BLUNGER LOADER Hospital Encounter Department of Radiology in [place], [place] [address] [place] [phone] Florecita Starks APRN, C.N.P., D.N.P. [address] [place] [address] Primary Malignant Neoplasm Of Prostate (HCC); Secondary Malignant Neoplasm Bone (HCC); Rising Prostate Specific Antigen Following Treatment For Malignant Cancer Of Prostate Discharge Disposition: Home or Self Care Social History Tobacco Use Types Packs/Day Years Used Date Smoking Tobacco: Some Days Cigarettes 0.3 30 Passive Smoke Exposure: Past Smokeless Tobacco: Never Alcohol Use Standard Drinks/Week Comments Yes 2 (1 standard drink = 0.6 oz pur e alcohol) [facility] Utilities Answer Date Recorded In the past 12 months has e electric, gas, oil, or water [email or web address] threatened to shut off services in your [...] often do you attend chur ch or congregation services? Patient declined 02/03/2022 Do you belong to any clubs o r organizations such as episcopalian groups, unions, fraternal or athletic groups, or [...] Answer Date Recorded PHQ-2 Score 2 09/24/2021 [facility] - Occupational [...] your living situation today? I have a [facility] place to live 04/03/2023 Education Answer [...] mg x 2, 2 weeks apart at [facility] on 06/10/2022 and 06/24/2022. 0 06/10/2022 sulfamethoxazole-trimeth oprim (BACTRIM) 400-80 mg per tablet Take 1 tablet by mouth daily. 90 tablet 3 09/14/2022 UNABLE TO FIND as needed. Prochlorerazone: 0 zinc chelated 50 mg tablet tablet Take 50 mg by mouth daily. 0 documented as of this encounter Plan of Treatment Upcoming Encounters Date Type Department Care Team (Late st Contact Info) Description 04/26/2023 3:15 PM BLUNGER LOADER Appointment Department of Radiation Oncology in [address] [phone] Gurwinder Tejeda M.D. [address] [place] [phone] 05/03/2023 1:00 PM BLUNGER LOADER Appointment Department of Laboratory Medicine in [address] [phone] Carson Fletcher M.D. [address] [place] [phone] 05/03/2023 1:10 PM BLUNGER LOADER Appointment Department of Laboratory Medicine in [address] [phone] Carson Fletcher M.D. [address] [place] [phone] 2023 2:30 PM BLUNGER LOADER Virtual Visit Division of Pulmonary Medicine in [place], [place] [address] [place] [phone] Carson Fletcher M.D. [address] [place] [phone] 07/05/2023 11:20 AM CDT Lab Department of Laboratory Medicine and Pathology, [facility] in [place], [place] [address] [place] [phone] Kallie Rosales APRN, C.N.P., M.S. [address] [place] [phone] 07/05/2023 12:45 PM CDT Appointment Department of Radiology, [facility], in [place], [place] [address] [place] [phone] Kallei Rosales APRN, C.N.P., M.S. [address] [place] [phone] 07/06/2023 11:30 AM CDT Office Visit Department of Urology in [place], [place] [address] [place] [phone] Sushant Vicente M.D. 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 miPSMA score: 3. -New mild tracer uptake in the right masseter muscle which could also be related to nonspecific focal myositis versus soft tissue metastasis. Narrative 04/09/2023 3:21 PM BLUNGER LOADER EXAM: PET CT SKULL TO THIGH PSMA [...] tissue metastasis. Florecita Starks APRN, C.N.P., D.N.P. [facility] [place] PROCEDURES documented in this encounter Visit Diagnoses Diagnosis Primary Malignant Neoplasm Of Prostate (HCC) Secondary Malignant Neoplasm Bone (HCC) Rising Prostate Specific Antigen Following Treatment For Malignant Cancer Of Prostate documented in this encounter Administered Medications Inactive Administered Medications - up to 3 most recent administrations Medication Order MAR Action Action Date Dose Rate Site piflufolastat F 18 injection (PYLARIFY F-18) 9.1 millicurie, intravenous, Once, On Wed04/09/23 at 1230, For 1 dose, Imaging Protocol Orders Given 04/09/2023 12:05 PM BLUNGER LOADER 9.1 millicuries Right Antecubital documented in this encounter Additional Health Concerns Infection Onset Date Last Indicated Resolved Time Protective Environment 07/31/2022 07/31/2022 Assessment Noted Time PHQ-9 Depression Total Score: 2 10/13/19 14 10:45 AM CDT documented as of this encounter Care Teams Prenatal Nurse Relationship Specialty Start Date End Date Elsewhere, Pcp PCP - General Family Medicine 12/29/19 documented as of this encounter
--- OUTSIDE RECORDS SUMMARY | 2023-04-25 19:00 | XMS_ITS | Encounter Summary ---
Author Name Unknown Organization [facility] Address [address] [place] [phone] Care Team Providers Care Assistant Editor Name Role Phone Elsewhere, Pcp Primary Care Provider Unavailabl e Reason for Visit * Reason Onset Date Comments Lab Monitoring 03/10/2023 Vasculitis Encounter Details Date Type Department Care Team (Latest Contact Info) Description 03/10/2023 Clinical Communication Division of Pulmonary Medicine in [place], [place] [address] [place] [phone] Carson Fletcher M.D. [address] [place] [phone] Lab Monitoring (Vasculitis) Social History Tobacco Use Types Packs/Day Years [...] often do you attend chur ch or catholic services? Patient declined 02/03/2022 Do you belong to any clubs o r organizations such as sabianism groups, unions, fraternal or athletic groups, or [...] Answer Date Recorded PHQ-2 Score 2 09/24/2021 [facility] - Occupational [...] the money to buy more. Never true 11/15/20 22 Within the past 12 months, t [...] place to sleep or slept in a custodial (including now)? No 02/03/2022 Nutrition Answer Date [...] encounter Miscellaneous Notes * Telephone Encounter - Ella Hinkle R.N. 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 PR3-ANCA decreased following rituximab. Per 03/09/[address] Fletcher the plan is: - Quarterly B-cells and ANCA scheduled 05/03/23 - Bactrim SS daily for PJP pneumonia prevention - Prednisone 10 mg daily (for prostate CA as managed by oncology) - Consider rituximab based upon evolution of CT chest changes & ONC treatments - Phone visit scheduled 05/10/23 Portal user: Plan sent SOFTWARE DEVELOPER documented in this encounter Plan of Treatment Upcoming Encounters Date Type Department Care Team (Late st Contact Info) Description 04/26/2023 3:15 PM UI SOFTWARE DEVELOPER Appointment Department of Radiation Oncology in [address] [phone] Gurwinder Tejeda M.D. [address] [place] [phone] 05/03/2023 1:00 PM UI SOFTWARE DEVELOPER Appointment Department of Laboratory Medicine in [address] [phone] Carson Fletcher M.D. [address] [place] [phone] 05/03/2023 1:10 PM UI SOFTWARE DEVELOPER Appointment Department of Laboratory Medicine in [address] [phone] Carson Fletcher M.D. [address] [place] [phone] 2023 2:30 PM UI SOFTWARE DEVELOPER Virtual Visit Division of Pulmonary Medicine in [place], [place] [address] [place] [phone] Carson Fletcher M.D. [address] [place] [phone] 07/05/2023 11:20 AM CDT Lab Department of Laboratory Medicine and Pathology, [facility], in [place], [place] [address] [place] [phone] Kallie Rosales APRN, C.N.P., M.S. [address] [place] [phone] 07/05/2023 12:45 PM CDT Appointment Department of Radiology, [facility] in [place], [place] [address] [place] [phone] aKllie Rosales APRN, C.N.P., M.S. [address] [place] [phone] 07/06/2023 11:30 AM CDT Office Visit Department of Urology in [place], [place] [address] [place] [phone] Sushant Vicente M.D. [address] [place] [phone] documented as of this encounter Visit Diagnoses Not on filedocumented in this encounter Additional Health Concerns Infection Onset Date Last Indicated Resolved Time Protective Environment 07/31/2022 07/31/2022 Assessment Noted Time PHQ-9 Depression Total Score: 2 10/13/19 14 10:45 AM CDT documented as of this encounter Care Teams Assistant Editor Relationship Specialty Start Date End Date Elsewhere, Pcp PCP - General Family Medicine 12/29/19 documented as of this encounter
--- OUTSIDE RECORDS SUMMARY | 2023-04-25 19:00 | XMS_ITS | Encounter Summary ---
Author Name Unknown Organization [facility] Address [address] [place] [phone] Care Team Providers Care Product Safety Administrator Name Role Phone Elsewhere, Pcp Primary Care Provider Unavailabl e Encounter Details Date Type Department Care Team (Late st Contact Info) Description 02/24/2023 Documentation Department of Radiation Oncology in [place], [place] [address] [place] [phone] Gurwinder Tejeda M.D. [address] [place] [phone] Social History Tobacco Use Types Packs/Day Years [...] How often do you attend chur or uatsdin services? Patient declined 02/03/2022 Do you belong to any clubs o r organizations such as yazdanism groups, unions, fraternal or athletic groups, or [...] Answer Date Recorded PHQ-2 Score 2 09/24/2021 [facility] - Occupational Stress Questionnaire Answer Date Recorded [...] place to sleep or slept in a [place] [facility] [place] facility (including now)? No 02/03/2022 Nutrition Answer Date [...] as of this encounter Miscellaneous Notes * Radiation Completion Notes - Mariajose Wick R.N. - 02/24/2023 11:59 PM AIRPLANE RENTAL CLERK DIAGNOSIS: 1. Primary Malignant Neoplasm Of Prostate (HCC) 2. Secondary Malignant Neoplasm Bone (HCC) Attending Physician: Gurwinder Tejeda M.D. ([id number]) Treatment Intent: Palliative Concomitant Therapy: Olaparib and Zytiga/prednisone re-initiated in July 2022 Single Plan Treatment Course: 2xMultiSite Plan ID Fractions Dose / Fraction (cGy) Dose Treated (cGy) Dose Planned (cGy) First Treatment Last Treatment Elapsed Days [id number] 800 800 800 02/05/2023 02/05/2023 0 Course Summary 02/05/2023 02/05/2023 0 Treatment Course: 3xRibs Plan ID Fractions Dose / Fraction (cGy) Dose Treated (cGy) Dose Planned (cGy) First Treatment Last Treatment Elapsed Days [id number] 800 800 800 02/24/2023 02/24/2023 0 Course Summary 02/24/2023 02/24/2023 0 Radiation Modality: Photons CLINICAL SUMMARY Mr. Lashell Gates completed radiation treatment as planned without interruptions. The course oftreatment was tolerated well. The patient experienced no toxicities of grade during radiation treatment. TREATMENT RESPONSE: Response to treatment will be determined by post-treatment imaging and/or laboratory work. RECOMMENDED FOLLOW UP: Primary Medical Oncologist. He has a follow-up visit next week with Dr. Mott as well as with Dr. Joy in Orthopedics. Signed by: Mariajose Wick R.N., 03/02/2023 11:17 AM AIRPLANE RENTAL CLERK [facility] [address] [place] [phone]ENTAL CLERK documented in this encounter Plan of Treatment Upcoming Encounters Date Type Department Care Team (Late st Contact Info) Description 04/26/2023 3:15 PM AIRPLANE RENTAL CLERK Appointment Department of Radiation Oncology in [address] [phone] Gurwinder Tejeda M.D. [address] [place] [phone] 05/03/2023 1:00 PM AIRPLANE RENTAL CLERK Appointment Department of Laboratory Medicine in [address] [phone] Carson Fletcher M.D. [address] [place] [phone] 05/03/2023 1:10 PM AIRPLANE RENTAL CLERK Appointment Department of Laboratory Medicine in [address] [phone] Carson Fletcher M.D. [address] [place] [phone] 2023 2:30 PM AIRPLANE RENTAL CLERK Virtual Visit Division of Pulmonary Medicine in [place], [place] [address] [place] [phone] Carson Fletcher M.D. [address] [place] [phone] 07/05/2023 11:20 AM CDT Lab Department of Laboratory Medicine and Pathology, [facility] in [place], [place] [address] [place] [phone] Kallie Rosales APRN, C.N.P., M.S. [address] [place] [phone] 07/05/2023 12:45 PM CDT Appointment Department of Radiology, [facility], in [place], [place] [address] [place] [phone] Kallie Rosales APRN, C.N.P., M.S. [address] [place] [phone] 07/06/2023 11:30 AM CDT Office Visit Department of Urology in [place], [place] [address] [place] [phone] Sushant Vicente M.D. [address] [place] [phone] documented as of this encounter Visit Diagnoses Diagnosis Primary Malignant Neoplasm Of Prostate (HCC)- Primary Secondary Malignant Neoplasm Bone (HCC) documented in this encounter Additional Health Concerns Infection Onset Date Last Indicated Resolved Time Protective Environment 07/31/2022 07/31/2022 Assessment Noted Time PHQ-9 Depression Total Score: 2 10/13/19 14 10:45 AM CDT documented as of this encounter Care Teams Product Safety Administrator Relationship Specialty Start Date End Date Elsewhere, Pcp PCP - General Family Medicine 12/29/19 documented as of this encounter
--- OUTSIDE RECORDS SUMMARY | 2023-04-25 19:00 | XMS_ITS | Encounter Summary ---
Author Name Unknown Organization [facility] Address [address] [place] [id number] Care Team Providers Care Residential Direct Support Professional Name Role Phone Elsewhere, Pcp Primary Care [...] PSMA Florecita Starks APRN, C.N.P., D.N.P. [address] [place] [phone] [facility] Region Referral ID Status Reason Start Date Expiration Date Visits Re quested Visits Authorized [id number] Closed 04/06/2023 04/05/2024 1 1 BUILDER * Outpatient (Routine) - Closed Specialty Diagnoses / Procedures Referred By Contac t Referred To Contact Radiation Oncology Kassie Cash P.A.-C., M.S. [address] [place] [phone] Gurwinder Tejeda M.D. [address] [place] [phone] Referral ID Status Reason Start Date Expiration Date Visits Re quested Visits Authorized [id number] Closed 04/01/2023 03/31/2026 1 1 Scheduling Instructions Please contact patient when appointment is scheduled [facility] Reason for Visit * Outpatient (Routine) - Closed Specialty Diagnoses / Procedures Referred By Contac t Referred To Contact Radiation Oncology Kassie Cash P.A.-C., M.S. [address] [place] [phone] Gurwinder Tejeda M.D. [address] [place] [phone] Referral ID Status Reason Start Date Expiration Date Visits Re quested Visits Authorized [id number] Closed 04/01/2023 03/31/2026 1 1 Encounter Details Date Type Department Care Team (Latest Contact Info) Description 04/06/2023 9:19 AM HOSE BUILDER - 04/06/2023 2:23 PM [facility] Hospital Encounter Department of Radiation Oncology in [place], [place] [address] [place] [phone] Gurwinder Tejeda M.D. [address] [place] [phone] Rising Prostate Specific Antigen Following Treatment For Malignant Cancer Of Prostate (Primary Dx); Primary Malignant Neoplasm Of Prostate (HCC); Secondary Malignant Neoplasm Bone (HCC) Social History Tobacco Use Types Packs/Day Years Used Date Smoking Tobacco: Some Days Cigarettes 0.3 30 Passive Smoke Exposure: Past Smokeless Tobacco: Never Alcohol Use Standard Drinks/Week Comments Yes 2 (1 standard drink = 0.6 oz pur e alcohol) [facility] Utilities Answer Date Recorded In the past 12 months has e [employer], gas, oil, or water [employer] threatened to shut off services in your [...] How often do you attend chur or roman catholic services? Patient declined 02/03/2022 Do you belong to any clubs o r organizations such as yarsani groups, unions, fraternal or athletic groups, or [...] Answer Date Recorded PHQ-2 Score 2 09/24/2021 [facility] - [...] your living situation today? I have a [facility] place to live 04/03/2023 Education Answer [...] Sign Reading Time Taken Comments Blood Pressure 137/71 04/06/2023 9:24 AM HOSE BUILDER Pulse 104 04/06/2023 9:24 AM HOSE BUILDER Temperature 36.1 ??C (97 ??F) 04/06/2023 9:24 AM HOSE BUILDER Respiratory Rate - - Oxygen Saturation - - Inhaled Oxygen Concentration - - Weight 82.5 kg (181 lb 14.1 oz) 04/06/2023 9:24 AM HOSE BUILDER Height - - Body Mass Index 28.41 03/09/2023 3:43 PM HOSE BUILDER documented in this encounter Medications at Time [...] mg x 2, 2 weeks apart at [facility] on 06/10/2022 and 06/24/2022. 0 06/10/2022 sulfamethoxazole-trimeth oprim (BACTRIM) 400-80 mg per tablet Take 1 tablet by mouth daily. 90 tablet 3 09/14/2022 UNABLE TO FIND as needed. Prochlorerazone: 0 zinc chelated 50 mg tablet tablet Take 50 mg by mouth daily. 0 documented as of this encounter Progress Notes * Florecita Starks APRN, C.N.P., D.N.P. - 04/06/2023 9:30 AM CST SUBJECTIVE DIAGNOSIS 1. Rising Prostate Specific Antigen Following Treatment For Malignant Cancer Of Prostate 2. Primary Malignant Neoplasm Of Prostate (HCC) 3. Secondary Malignant Neoplasm Bone (HCC) SUPERVISED BY: Gurwinder Tejeda MD HISTORY OF PRESENT ILLNESS Mr. Lashell Gates [...] pain in the right chest. He is being evaluated today for this pain. His oncologic history is as follows: Oncology [...] in [address] Cole at [place], [place] for a biochemical recurrence. 12/26/2013 Other [...] ng/mL 08/03/2022: PSA 6.5 ng/mL 07/2022 - Biological/Targeted/Hormone Therapy Re-started on Olaparib and Zytiga with prednisone. Continued with androgen deprivation therapy. 11/05/2022 Critical Imaging PSA 9.8 ng/mL. Testosterone [...] multiple scattered radiotracer positive osseous lesions including senior patient account representative examples involving the T2 vertebral body, [...] total dose of 800 cGy. 03/16/2023 Other 03/16/2023: PSA 22 ng/mL INTERVAL HISTORY The patient was seen and examined today with Dr. Tejeda. The patient reports a sharp increase in pain about 2 weeks following radiation treatment to the left ribs on February 24, 2023. He reports about 90% pain improvement in the left ribs following radiation treatment. Then suddenly about 2 weeks later pain returned and was worse than prior to radiation treatment. On average, he rates it 6/10, but it can increase up to 8-9/10 with most movement or coughing. This pain is present all of the time. He takes 2 mg dilaudid in the morning and at bedtime with little relief. The last couple of days he has been taking an additional dose in late afternoon to help get him through the day. He takes tylenol at bedtime to help sleep. As long as he isn't moving or laying on his left side he can sleep okay. He has also noticed a new, mild pain in his right ribcage over the last few weeks. This is sporadically present, lasts for 15-30 minutes, then completely resolves. He cannot find a correlation to what stems the pain or relieves it. When it is present, herates it a 4/10. This pain in the right ribcage does not spike with movement or cough like on his left side. He denies any pain in his back. He reports very mild, sporadic pain in his sternum still. The pain in his sternum is not bothersome. His ECOG performance status is 1. REVIEW OF SYSTEMS Review of systems was negative except as documented above. PATIENT REPORTED SYMPTOM SCREEN FATIGUE (Scale: 0 = no fatigue; 10 = worst fatigue you can imagine): 8 PAIN (Scale: 0 = no pain; 10 = worst pain you can imagine): 7 OVERALL QUALITY OF LIFE (Scale: 0 = as bad as can be; 10 = as good as can be): 6 OBJECTIVE BP 137/71 (BP Location: Right arm, Patient Position: Sitting, Cuff Size: Regular) Pulse 104 Temp 36.1 ??C (Temporal) Wt 82.5 kg BMI 28.41 kg/m?? PHYSICAL EXAM General: Alert and oriented in no apparent distress. Chest: There is tenderness to palpation of the left lateral mid ribcage. There is mild tenderness to palpation of the right lateral mid ribcage. There is no tenderness to palpation of the back, spine, or sternum. ASSESSMENT / PLAN #1 pT2c, N0, [...] #9 Olaparib and Zytiga/prednisone re-initiated in July 2022 #10 PSMA PET/CT scan on January 22, 2023 demonstrated multiple osseous lesions with migratory pain in the thoracic spine, sternum, and ribs #11 Radiotherapy to T3-T8, 8 Gy in 1 fraction on February 05, 2023 #12 Radiotherapy to left 7th and 8th ribs, 8 Gy in 1 fraction on February 24, 2023 It was a pleasure to meet with Al today. He asked to be evaluated as he is having an increase in pain to the previously treated left lateral ribs, but he also has new pain in this right chest over the last couple of weeks. The pain on this right chest is more mild and sporadic and is not bothersomeoverall. The pain on his left side is what is bothering him. His last PSA was on March 16, 2023 at 22 ng/mL. He reports having one last Wednesday at [facility], but we did not have the results at the time of our visit. At this time, it is unclear what his pain is stemming from in the left ribcage. It could be that radiation treatment did not help alleviate disease in the area, a fracture secondary to his disease orradiation, or other etiology. He is currently scheduled for additional lab work, a PET Choline scan, and follow up with Dr. Vicente on May 03. We want to get a PSMA PET-CT completed sooner to further evaluate this pain. We were able to schedule one in [place] on April 09. Once that is completed, we will assess if further radiation treatment should be delivered to that area. We willupdate Dr. Vicente's team once that is completed to see if they still need their appointments scheduled for April, or if they will push them out. We will contact the patient early next week for further recommendations. Regarding his pain, we discussed getting on an ibuprofen and Tylenol schedule. We recommend alternating 600 mg ibuprofen and 1000 mg Tylenol every 3 hours. He is also being followed by palliative medicine through [facility]. We discussed reaching out to them if he needs additional narcotic medication, as they have previously provided that, if the ibuprofen and tylenol wasn't helping better with his pain. Patient seen in collaboration with Dr. Tejeda, please review his attestation for additional information. He will contact us with questions or concerns. He verbally expressed his understanding of the plan. EDUCATION Ready to learn, no apparent learning barriers were identified; learning preferences include listening. Explained diagnosis and treatment plan; patient expressed understanding of the content. I personally spent 45 minutes in care of the patient today. Time includes both non face to face andface to face patient care. Signed by: Florecita Starks APRN, C.N.P., Alina.N.P. 04/06/2023 11:58 AM HOSE BUILDER [facility] [address] [place] [address] BUILDER Associated attestation - Gurwinder Tejeda M.D. - 04/06/2023 2:22 PM HOSE BUILDER I saw and evaluated the patient and [...] times daily. He is also taking acetaminophen 1000 mg at bedtime. He is having regular daily bowel movements. On exam, does seem a bit confused today. He has tenderness to palpation over the left lower anterior ribcage. I cannot palpate any tenderness over the right ribcage or over the spine. The patient's PET/CT scan from January 22, 2023 was not particularly revealing with respect to a particular disease target. With his recrudescence of pain, I need another PET scan to see if we have aclear area to treat with stereotactic body radiation therapy in the left lower anterior ribcage. This will be performed on April 09, 2023. We will review those images and see him back soon after for follow-up visit and a CT simulation. The patient will begin taking alternating ibuprofen and Tylenol as below in Ms. Starks's note. He will also complete a pain diary. He is followed by palliative care through [facility], so I explained that I would like for any further adjustments in his n arcotic medications to come from them. He agreed to this and verbalized satisfaction with this plan. I spent a total of 25 minutes caring for the patient in [id number]-bn-rwol and non xwze-gl-kzwc time today. Signed by: Gurwinder Tejeda M.D. 04/06/23 2:22 PM HOSE BUILDER [facility] Radiation Therapy [facility] documented in this encounter Miscellaneous Notes * Addendum Note - Lorin Ward C.N.A. - 04/06/2023 9:30 AM CSTEncounter addended by: Lorin Ward C.N.A. on: 04/06/2023 2:38 PM Actions taken: Letter saved BUILDER documented in this encounter Plan of Treatment Upcoming Encounters Date Type Department Care Team (Late st Contact Info) Description 04/26/2023 3:15 PM HOSE BUILDER Appointment Department of Radiation Oncology in [place], [place] [address] [place] [phone] Gurwinder Tejeda M.D. [address] [place] [phone] 05/03/2023 1:00 PM HOSE BUILDER Appointment Department of Laboratory Medicine in [address] [phone] Carson Fletcher M.D. [address] [place] [phone] 05/03/2023 1:10 PM HOSE BUILDER Appointment Department of Laboratory Medicine in [address] [phone] Carson Fletcher M.D. [address] [place] [phone] 2023 2:30 PM HOSE BUILDER Virtual Visit Division of Pulmonary Medicine in [place], [place] [address] [place] [phone] Carson Fletcher M.D. [address] [place] [phone] 07/05/2023 11:20 AM CDT Lab Department of Laboratory Medicine and Pathology, [facility] in [place], [place] [address] [place] [phone] Kallie Rosales APRN, C.N.P., M.S. [address] [place] [phone] 07/05/2023 12:45 PM CDT Appointment Department of Radiology, [facility] in [place], [place] [address] [place] [phone] Kallie Rosales APRN, C.N.P., M.S. [address] [place] [phone] 07/06/2023 11:30 AM CDT Office Visit Department of Urology in [place], [place] [address] [place] [phone] Sushant Vicente M.D. [address] [place] [phone] Scheduled Referrals Name Type Priority Associated Diagnoses Order Schedule Radiation Oncology office visit (clinic) Outpatient Referral Routine Once for 1 Occurrences starting 04/06/2023 until 04/06/2023 documented as of this encounter Results * PET CT Skull to Thigh PSMA (04/09/2023 1:46 PM HOSE BUILDER) Anatomical Region Laterality Modality Body, Nuclear Medicine PET R ST LOS, PET ARZ LOS, Nuclear Medicine PET FLA LOS, Nuclear Medicine N/A Positron Emission Tomography (PET) Impressions 04/09/2023 3:21 PM HOSE BUILDER - Multifocal new intensely tracer avid osseous metastases since the prior study from 11/05/2022, allowing for differences in technique. miPSMA score: 3. -New mild tracer uptake in the right masseter muscle which could also be related to nonspecific focal myositis versus soft tissue metastasis. Narrative 04/09/2023 3:21 PM HOSE BUILDER EXAM: PET CT SKULL TO THIGH PSMA [...] tissue metastasis. Florecita Starks APRN, C.N.P., D.N.P. [facility] PROCEDURES documented in this encounter Visit Diagnoses Diagnosis Rising Prostate Specific Antigen Following Treatment For Malignant Cancer Of Prostate- Primary Primary Malignant Neoplasm Of Prostate (HCC) Secondary Malignant Neoplasm Bone (HCC) Primary Malignant Neoplasm Of Prostate (HCC) Secondary Malignant Neoplasm Bone (HCC) Rising Prostate Specific Antigen Following Treatment For Malignant Cancer Of Prostate documented in this encounter Additional Health Concerns Infection Onset Date Last Indicated Resolved Time Protective Environment 07/31/2022 07/31/2022 Assessment Noted Time PHQ-9 Depression Total Score: 2 10/13/19 14 10:45 AM CDT documented as of this encounter Care Teams Residential Direct Support Professional Relationship Specialty Start Date End Date Elsewhere, Pcp PCP - General Family Medicine 12/29/19 documented as of this encounter
--- OUTSIDE RECORDS SUMMARY | 2023-04-25 19:00 | XMS_ITS | Encounter Summary ---
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 [address] [place] [phone] [facility] Referral ID Status Reason Start Date Expiration Date V isits Requested Visits Authorized [id number] Authorized 04/12/2023 04/11/2024 1 1 GER OF HUMAN RESOURCES * Radiation Therapy (Routine) - Closed Specialty Diagnoses / Procedures Referred By Brittni callejas Referred To Contact Diagnoses Primary Malignant Neoplasm Of Prostate (HCC) Rising Prostate Specific Antigen Following Treatment For Malignant Cancer Of Prostate Procedures Initial Rad Onc Treatment Planning CT Simulation Gurwinder Tejeda M.D. [address] [place] [phone] [facility] Referral ID Status Reason Start Date Expiration Date Visits Re quested Visits Authorized [id number] Closed 04/12/2023 04/11/2024 1 1 GER OF HUMAN RESOURCES * Outpatient (Routine) - Closed Specialty Diagnoses / Procedures Referred By Contac t Referred To Contact Radiation Oncology Gurwinder Tejeda M.D. [address] [place] [phone] Gurwinder Tejeda M.D. [address] [place] [phone] Referral ID Status Reason Start Date Expiration Date Visits Re quested Visits Authorized [id number] Closed 04/12/2023 10/11/2024 1 1 Scheduling Instructions See at 1 pm on 04/13, coordinate with sim GER OF HUMAN RESOURCES Encounter Details Date Type Department Care Team (Late st Contact Info) Description 04/12/2023 Orders Only Department of Radiation Oncology in [place], [place] [address] [place] [phone] Florecita Starks APRN, C.N.P., D.N.P. [address] [place] [phone] Primary Malignant Neoplasm Of Prostate (HCC) (Primary Dx); Rising Prostate Specific Antigen Following Treatment For Malignant Cancer Of Prostate Social History Tobacco Use Types Packs/Day Years Used Date Smoking Tobacco: Some Days Cigarettes 0.3 30 Passive Smoke Exposure: Past Smokeless Tobacco: Never Alcohol Use Standard Drinks/Week Comments Yes 2 (1 standard drink = 0.6 oz pur e alcohol) [facility] Utilities Answer Date Recorded In the past 12 months has e [employer], oil, or water [address] threatened to shut off services in your [...] How often do you attend chur or mandaeism services? Patient declined 02/03/2022 Do you belong to any clubs o r organizations such as anglican groups, unions, fraternal or athletic groups, or [...] Answer Date Recorded PHQ-2 Score 2 09/24/2021 [facility] ional Health - Occupational [...] your living situation today? I have a [facility] place to live 04/03/2023 Education Answer [...] st Contact Info) Description 04/26/2023 3:15 PM MANAGER OF HUMAN RESOURCES Appointment Department of Radiation Oncology in [place], [place] [address] [place] [phone] Gurwinder Tejeda M.D. [address] [place] [phone] 05/03/2023 1:00 PM MANAGER OF HUMAN RESOURCES Appointment Department of Laboratory Medicine in [address] [phone] Carson Fletcher M.D. [address] [place] [phone] 05/03/2023 1:10 PM MANAGER OF HUMAN RESOURCES Appointment Department of Laboratory Medicine in [address] [phone] Carson Fletcher M.D. [address] [place] [phone] 2023 2:30 PM MANAGER OF HUMAN RESOURCES Virtual Visit Division of Pulmonary Medicine in [place], [place] [address] [place] [address] Carson Fletcher M.D. [address] [place] [phone] 07/05/2023 11:20 AM CDT Lab Department of Laboratory Medicine and Pathology, [facility] in [place], [place] [address] [place] [phone] Kallie Rosales APRN, C.N.P., M.S. [address] [place] [phone] 07/05/2023 12:45 PM CDT Appointment Department of Radiology, [facility], in [place], [place] [address] [place] [phone] Kallie Rosales APRN, C.N.P., M.S. [address] [place] [phone] 07/06/2023 11:30 AM CDT Office Visit Department of Urology in [place], [place] [address] [place] [phone] Sushant Vicente M.D. [address] [place] [phone] Scheduled Orders Name Type Priority Associated Diagnoses Orde r Schedule Prior Auth Rad Tx Radiation Oncology Routine Primary Malignant Neoplasm Of Prostate (HCC) Rising Prostate Specific Antigen Following Treatment For Malignant Cancer Of Prostate Ordered: 04/12/2023 Scheduled Referrals Name Type Priority Associated Diagnoses Orde r Schedule Radiation Oncology office visit (clinic) Outpatient Referral Routine Expected: 04/13/2023 (Approximate), Expires: 07/11/2024 documented as of this encounter Results * Initial Rad Onc Treatment Planning CT Simulation (04/13/2023 1:30 PM MANAGER OF HUMAN RESOURCES) Narrative STEVIE QUIÑONES - 04/13/2023 1:30 PM MANAGER OF HUMAN RESOURCES Xiomara Browne, MINISTERIO ? 04/13/2023 ??2:13 PM Initial Rad Onc Treatment Planning CT Simulation Performed by: Gurwinder Tejeda M.D. Authorized by: Gurwinder Tejeda M.D. ?? Gurwinder Tejeda M.D. RADIATION ONCOLOGY ORDERABLES STEVIE QUIÑONES na documented in this encounter Visit Diagnoses Diagnosis Primary Malignant Neoplasm Of Prostate (HCC)- Primary Rising Prostate Specific Antigen Following Treatment For Malignant Cancer Of Prostate Primary Malignant Neoplasm Of Prostate (HCC) Rising Prostate Specific Antigen Following Treatment For Malignant Cancer Of Prostate documented in this encounter Additional Health Concerns Infection Onset Date Last Indicated Resolved Time Protective Environment 07/31/2022 07/31/2022 Assessment Noted Time PHQ-9 Depression Total Score: 2 10/13/19 14 10:45 AM CDT documented as of this encounter Care Teams Chlorobutadiene Scrubber Operator Relationship Specialty Start Date End Date Elsewhere, Pcp PCP - General Family Medicine 12/29/19 documented as of this encounter
--- OUTSIDE RECORDS SUMMARY | 2023-04-25 19:00 | XMS_ITS | Encounter Summary ---
Author Name Unknown Organization [facility] Address [address] [place] [address] Care Team Providers Care Sleeping Car Porter Name Role Phone Elsewhere, Pcp Primary Care Provider Unavailabl e Encounter Details Date Type Department Care Team (Late st Contact Info) Description 04/07/2023 Clinical Communication Department of Radiation Oncology in [place], [place] [address] [place] [phone] Gurwinder Tejeda M.D. [address] [place] [address] Social History Tobacco Use Types Packs/Day Years Used Date Smoking Tobacco: Some Days Cigarettes 0.3 30 Passive Smoke Exposure: Past Smokeless Tobacco: Never Alcohol Use Standard Drinks/Week Comments Yes 2 (1 standard drink = 0.6 oz pur e alcohol) [facility] Utilities Answer Date Recorded In the past 12 months has [facility], [facility], oil, or water [employer] threatened to shut off services in your [...] week 02/03/2022 How often do you attend [facility] or roman catholic services? Patient declined 02/03/2022 [...] Answer Date Recorded PHQ-2 Score 2 09/24/2021 [facility] - Occupational Stress Questionnaire Answer Date [...] your living situation today? I have a [facility] place to live 04/03/2023 Education Answer [...] encounter Miscellaneous Notes * Telephone Encounter - Cinthia Aranda - 04/07/2023 12:26 PM CST Other Reason for Call Caller: Sukhdev Relationships to patient: self Reason for call: Patient called asking if a PSA blood draw could be ordered and scheduled for the day he is going to get his PET scan in [place]. He said they did not draw it on 04/02 at [facility] [address]. Tejead wants it drawn again. Of note, he did get a PSA drawn at [facility] on 03/16, results are in document viewer. Once order is placed we can get it scheduled. ING CUTTER documented in this encounter Plan of Treatment Upcoming Encounters Date Type Department Care Team (Late st Contact Info) Description 04/26/2023 3:15 PM BELTING CUTTER Appointment Department of Radiation Oncology in [place], [place] [address] [place] [address] Gurwinder Tejeda M.D. [address] [place] [phone] 05/03/2023 1:00 PM BELTING CUTTER Appointment Department of Laboratory Medicine in [address] [phone] Carson Fletcher M.D. [address] [place] [phone] 05/03/2023 1:10 PM BELTING CUTTER Appointment Department of Laboratory Medicine in [address] [phone] Carson Fletcher M.D. [address] [place] [phone] 2023 2:30 PM BELTING CUTTER Virtual Visit Division of Pulmonary Medicine in [address] [phone] Carson Fletcher M.D. [address] [place] [phone] 07/05/2023 11:20 AM CDT Lab Department of Laboratory Medicine and Pathology, [place], [place] [address] [place] [phone] Kallie Rosales APRN, C.N.P., M.S. [address] [place] [phone] 07/05/2023 12:45 PM CDT Appointment Department of Radiology, [facility], in [place], [place] [address] [place] [phone] Kallie Rosales APRN, C.N.P., M.S. [address] [place] [phone] 07/06/2023 11:30 AM CDT Office Visit Department of Urology in [place], [place] [address] [place] [phone] Sushant Vicente M.D. [address] [place] [phone] documented as of this encounter Visit Diagnoses Not on filedocumented in this encounter Additional Health Concerns Infection Onset Date Last Indicated Resolved Time Protective Environment 07/31/2022 07/31/2022 Assessment Noted Time PHQ-9 Depression Total Score: 2 10/13/19 14 10:45 AM CDT documented as of this encounter Care Teams Sleeping Car Porter Relationship Specialty Start Date End Date Elsewhere, Pcp PCP - General Family Medicine 12/29/19 documented as of this encounter
--- OUTSIDE RECORDS SUMMARY | 2023-04-25 19:00 | XMS_ITS | Encounter Summary ---
Author Name Unknown Organization [facility] Address [address] [place] [address] Care Team Providers Care Portable Canteen Operator Name Role Phone Elsewhere, Pcp Primary Care Provider Unavailabl e Reason for Referral * Radiation Therapy (Routine) - Authorized Specialty Diagnoses / Procedures Referred By Contac t Referred To Contact Diagnoses Secondary Malignant Neoplasm Bone (HCC) Procedures Management Visit Gurwinder Tejeda M.D. 200 [place] [address] [facility] Region Referral ID Status Reason Start Date Expiration Date V isits Requested Visits Authorized [id number] Authorized 02/18/2023 02/18/2024 10 10 T BAND SEWER Reason for Visit * Radiation Therapy (Routine) - Authorized Specialty Diagnoses / Procedures Referred By Contac t Referred To Contact Diagnoses Secondary Malignant Neoplasm Bone (HCC) Procedures Management Visit Gurwinder Tejeda M.D. 200 [place] [address] [facility] Region Referral ID Status Reason Start Date Expiration Date V isits Requested Visits Authorized [id number] Authorized 02/18/2023 02/18/2024 10 10 Encounter Details Date Type Department Care Team (Latest Contact Info) Description 02/24/2023 1:37 PM SWEAT BAND SEWER - 02/24/2023 6:35 PM SWEAT BAND SEWER Hospital Encounter Department of Radiation Oncology in [address] [phone] Gurwinder Tejeda M.D. [address] [place] [address] Secondary Malignant Neoplasm Bone (HCC) Social History [...] week 02/03/2022 How often do you attend [facility] or spiritism services? Patient declined 02/03/2022 Do you belong to any clubs o r organizations such as amish groups, unions, fraternal or athletic groups, or [...] Answer Date Recorded PHQ-2 Score 2 09/24/2021 [facility] - Occupational Stress Questionnaire Answer Date [...] place to sleep or slept in a long term (including now)? No 02/03/2022 Nutrition Answer Date [...] Sign Reading Time Taken Comments Blood Pressure 135/60 02/24/2023 2:51 PM SWEAT BAND SEWER Pulse 92 02/24/2023 2:51 PM SWEAT BAND SEWER Temperature 36.4 ??C (97.6 ??F) 02/24/2023 2:51 PM CS T Respiratory Rate - - Oxygen Saturation - - Inhaled Oxygen Concentration - - Weight 82.4 kg (181 lb 10.5 oz) 02/24/2023 2:51 PM SWEAT BAND SEWER Height - - Body Mass Index 27.98 12/22/2022 1:50 PM CDT documented in this encounter Medications at Time of Discharge Medication Sig Dispensed Refills Start Date End Date ascorbic acid, vitamin C, (VITAMIN C) 1,000 mg tablet Take 1,000 mg by mouth daily. 0 aspirin (ASPIR-81 ORAL) Take 81 mg by mouth daily. 0 cholecalciferol (for_VITAMIN D3) 2,000 Unit capsule Take 1 capsule by mouth daily. 0 08/10/2016 diphenhydrAMINE-aceta minophen (TYLENOL PM) 25-500 mg per tablet Take [...] HCl (RITALIN) 5 mg tablet 0 01/28/2023 nitroglycerin (NITROSTAT) 0.[address] [...] mg x 2, 2 weeks apart at [facility] on 06/10/2022 and 06/24/2022. 0 06/10/2022 sulfamethoxazole-trim ethoprim (BACTRIM) 400-80 mg per tablet Take 1 tablet by mouth daily. 90 tablet 3 09/14/2022 zinc chelated 50 mg tablet tablet Take 50 mg by mouth daily. 0 abiraterone (Zytiga) 500 mg tablet Take 2 tablets by mouth daily after dinner. 0 08/11/2022 03/09/2023 ciprofloxacin (CIPRO) 500 mg tablet 500 MG ORALLY EVERY 12 HOURS 0 01/10/2023 03/09/2023 FOLIC ACID/MULTIVIT-MIN/LUT EIN (CENTRUM SILVER ORAL) Take 1 tablet by mouth daily. 0 07/18/2008 03/09/2023 Lactobacillus acidophilus (Probiotic) 10 billion cell capsule Take 1 capsule by mouth daily. 0 03/09/2023 METHOTREXATE SODIUM ORAL Take by mouth. 0 11/27/2021 03/09/2023 metroNIDAZOLE (FLAGYL) 500 mg tablet 500 MG ORALLY EVERY 12 HOURS 0 01/10/2023 03/09/2023 NON FORMULARY Take by mouth. HYDROMORPHONE 0 01/10/2023 03/09/2023 NON FORMULARY Take by mouth. PEDI MULTIVIT NO.16 W-FLUORIDE (MULTIVITAMINS WITH FLUORIDE) 0.25 MG TABLET,CHEWABLE 0 11/27/2021 03/09/2023 olaparib (Lynparza) 150 mg tablet Take 2 tablets by mouth 2 (two) times a day. 0 08/11/2022 03/09/2023 omeprazole (PriLOSEC) [address] capsule Take by mouth daily. 0 11/27/2021 pantoprazole (PROTONIX) 40 mg EC tablet Take 40 mg by mouth every morning. 0 08/13/2022 03/09/2023 triamcinolone (KENALOG) 0.1 % cream Apply topically. 0 11/27/2021 documented as of this encounter Progress Notes * Gurwinder Tejeda M.D. - 02/24/2023 3:00 PM CST SUBJECTIVE REASON FOR VISIT Evaluation for side effects while receiving radiation treatment for 1. Secondary Malignant Neoplasm Bone (HCC) SUPERVISED BY: Gurwinder Tejeda M.D. ([id number]) HISTORY OF PRESENT ILLNESS Mr. Lashell Gates is a 77 y.o. male with adenocarcinoma of the prostate who is now undergoing osseous lesions in left 7th and 8th ribs. Treatment Course: 3xRibs Plan ID Fractions Dose / Fraction (cGy) Dose Treated (cGy) Dose Planned (cGy) First Treatment Last Treatment Elapsed Days [id number] 800 800 800 02/24/2023 02/24/2023 0 Course Summary 02/24/2023 02/24/2023 0 Oncology History Primary Malignant Neoplasm Of Prostate (HCC) 02/21/2004 Other PSA 4.6 ng/mL 07/01/2004 Surgery and Procedures Underwent robotic-assisted radical prostatectomy by Dr. Duque. Pathology revealed Selfridge 3 + 3, pT2c, N0, MX, R0 [...] in [address] Cole at [place], [place] for a biochemical recurrence. 12/26/2013 Other [...] multiple scattered radiotracer positive osseous lesions including billing representative examples involving the T2 vertebral body, SUV max 26.7, T4 vertebral body, SUV max 20.6,and right posterior iliac bone, SUV max 26.9. 02/05/2023 - 02/05/2023 Radiation Therapy 800 cGy in 1 fraction to the sternum and T3 - T8 02/15/2023 Other PSA 21.2 ng/mL 02/18/2023 Other [...] and irina and left acetabulum as described. The patient was seen and examined today with Dr. Tejeda. The patient reports to be feeling well overall. He rates the pain in his ribs a 7 out of 10. He takes Hydromorphone twice daily and Extra Strength Tylenol three times daily. He denies any other issues or concerns at this time. PATIENT REPORTED SYMPTOM SCREEN FATIGUE (Scale: 0 = no fatigue; 10 = worst fatigue you can imagine): 6 PAIN (Scale: 0 = no pain; 10 = worst pain you can imagine): 7 OVERALL QUALITY OF LIFE (Scale: 0 = as bad as can be; 10 = as good as can be): 6 OBJECTIVE BP 135/60 (BP Location: Right arm, Patient Position: Sitting, Cuff Size: Regular) Pulse 92 Temp36.4 ??C (Temporal) Wt 82.4 kg BMI 27.98 kg/m?? PHYSICAL EXAM General: Alert and oriented [...] spine, sternum, and ribs #11 Radiotherapy to the left 7th and 8th ribs delivered in one fraction on February 24, 2023 The patient is tolerating radiation treatment well overall. Patient can continue current pain regimen for pain control. If he were to have an increase in pain over the next 24-48 hours he should contact our care team. Patient will see Dr. Mott on March 01, 2023. Follow up with Dr. Ileana pollock on an as needed basis. He will continue with radiation treatment as planned. He can contact our care team with any questions or concerns. Signed by: Ese Foster R.N. 02/24/2023 3:09 PM SWEAT BAND SEWER I saw and evaluated the patient and participated in the savage portions of the service. I reviewed thedocumentation of Ese Foster R.N. and agree with the findings and plan. The patient appears well on exam. He tolerated treatment well today. He has a follow-up visit next week with Dr. Mott as well as with Dr. Joy in Orthopedics. I will not schedule a formal follow-up in Radiation Oncology Clinic, but he knows he can contact me at any time with questions or concerns. He verbalized satisfaction with this plan. Signed by: Gurwinder Tejeda M.D. 02/24/2023 6:34 PM SWEAT BAND SEWER [facility] [address] [place] [phone] T BAND SEWER documented in this encounter Miscellaneous Notes * Addendum Note - Lorin Ward, C.N.A. - 02/24/2023 3:00 PM CSTEncounter addended by: Lorin Ward C.N.A. on: 02/25/2023 10:43 AM Actions taken: Letter saved T BAND SEWER documented in this encounter Plan of Treatment Upcoming Encounters Date Type Department Care Team (Late st Contact Info) Description 04/26/2023 3:15 PM SWEAT BAND SEWER Appointment Department of Radiation Oncology in [address] [phone] Gurwinder Tejeda M.D. [address] [place] [phone] 05/03/2023 1:00 PM SWEAT BAND SEWER Appointment Department of Laboratory Medicine in [address] [phone] Carson Fletcher M.D. [address] [place] [phone] 05/03/2023 1:10 PM SWEAT BAND SEWER Appointment Department of Laboratory Medicine in [address] [phone] Carson Fletcher M.D. [address] [place] [phone] 2023 2:30 PM SWEAT BAND SEWER Virtual Visit Division of Pulmonary Medicine in [place], [place] [address] [place] [phone] Carson Fletcher M.D. [address] [place] [phone] 07/05/2023 11:20 AM CDT Lab Department of Laboratory Medicine and Pathology, [facility] in [place], [place] [address] [place] [phone] Kallie Rosales APRN, C.N.P., M.S. [address] [place] [phone] 07/05/2023 12:45 PM CDT Appointment Department of Radiology, [facility], in [place], [place] [address] [place] [phone] Kallie Rosales APRN, C.N.P., M.S. [address] [place] [phone] 07/06/2023 11:30 AM CDT Office Visit Department of Urology in [address] [phone] Sushant Vicente M.D. [address] [place] [phone] Scheduled Orders Name Type Priority Associated Diagnoses Orde r Schedule Management Visit Radiation Oncology Routine Secondary Malignant Neoplasm Bone (HCC) Once for 1 Occurrences starting 02/24/2023 until 02/24/2023 documented as of this encounter Visit Diagnoses Diagnosis Secondary Malignant Neoplasm Bone (HCC) documented in this encounter Additional Health Concerns Infection Onset Date Last Indicated Resolved Time Protective Environment 07/31/2022 07/31/2022 Assessment Noted Time PHQ-9 Depression Total Score: 2 10/13/19 14 10:45 AM CDT documented as of this encounter Care Teams Portable Canteen Operator Relationship Specialty Start Date End Date Elsewhere, Pcp PCP - General Family Medicine 12/29/19 documented as of this encounter
--- OUTSIDE RECORDS SUMMARY | 2023-04-25 19:00 | XMS_ITS | Encounter Summary ---
Author Name Unknown Organization [facility] Address [address] [place] [address] Care Team Providers Care Sheeter Machine Operator Name Role Phone Elsewhere, Pcp Primary Care Provider Unavailabl e Reason for Referral * Outpatient (Routine) - Closed Specialty Diagnoses / Procedures Referred By Brittni t Referred To Contact Radiation Oncology Kassie Cash P.A.-C., M.STavon [address] [place] [phone] Gurwinder Tejeda M.D. [address] [place] [phone] Referral ID Status Reason Start Date Expiration Date Visits Re quested Visits Authorized [id number] Closed 04/01/2023 03/31/2026 1 1 Scheduling Instructions Please contact patient when appointment is scheduled UNITY SUPPORT SPECIALIST Encounter Details Date Type Department Care Team (Late st Contact Info) Description 03/31/2023 Clinical Communication Department of Radiation Oncology in [place], [place] [address] [place] [phone] Gurwinder Tejeda M.D. [address] [place] [phone] Social History Tobacco Use Types Packs/Day Years [...] How often do you attend chur or yazidism services? Patient declined 02/03/2022 Do you belong to any clubs o r organizations such as protestant groups, unions, fraternal or athletic groups, or [...] Answer Date Recorded PHQ-2 Score 2 09/24/2021 [facility] of Occupat ional [facility] - Occupational Stress Questionnaire Answer Date [...] money to buy more. Never true 02/04/20 Within the past 12 months, t he [...] as of this encounter Miscellaneous Notes * Addendum Note - Ese Lizarraga R.N. - 04/01/2023 3:35 PM CSTAddended by: ESE LIZARRAGA on: 04/01/2023 03:35 PM Modules accepted: Orders UNITY SUPPORT SPECIALIST * Telephone Encounter - Ese Lizarraga R.N. - 04/01/2023 3:10 PM COMMUNITY SUPPORT SPECIALIST Information Discussed Discussed with patient that we would schedule a visit for the following week to have his symptoms further evaluated. Patient reports that he is having a PSA drawn at [facility] this Wednesday and will also have an infusion and office visit. PLAN We will schedule an office visit for the coming week. Patient will have [facility] send us PSA. Will contact patient if imaging is needed prior to the office visit in the coming week. Patient verbalized understanding and had no further questions. Disposition/Recommendation: self-care - appropriate at this time, patient encouraged to call back with questions Information/Education: patient/caller able to teach back Caller agreeable to plan of care: yes The following references were used: nursing clinical judgement UNITY SUPPORT SPECIALIST * Telephone Encounter - Mariajose Wick R.N. - 03/31/2023 3:08 PM CST ASSESSMENT Patient received radiation therapy in single fraction to the left 7th and 8th ribes on February 24, 2023. Patient also received radiation therapy in single fraction to sternum and T3-T8 on February 05, 2023. Patient calls in today to report intermittent pain to left ribs to area we treated that comes and goes. When pain comes on it can be as high as 7-9 out of 10. He describes the pain as steady and achy. He reports pain relief from radiation therapy but then 1-2 weeks ago is when pain re developed. He is also experiencing pain to right mid ribcage but this pain does not occur as often and is not as bad. This pain also developed 1-2 weeks ago. He denies any recent falls or trauma to his body. He is taking 1 tablet of Dilaudid (2 mg tablet) 2-3 times a day. He also takes 2 extra strength Tylenol 2-3 times a day and feel this helps to keep pain moderately under control. He takes Ritalin tohelp with fatigue management. He reports no pain to sternum. He reports no pain to his back today but at times he can notice positional back pain in the evenings. He met with Pain provider at [facility] and they recommended that patient contact our office to discuss further. PLAN I will update our care team and then someone from our care team will connect back with patient. Radiation Oncology [place] can be contacted at anytime for any questions or concerns. Disposition/Recommendation: self-care - appropriate at this time, patient encouraged to call back with questions. Information/Education: patient/caller able to teach back. Caller agreeable to plan of care: yes. The following references were used: nursing clinical judgement. UNITY SUPPORT SPECIALIST * Telephone Encounter - Karen Barnes - 03/31/2023 2:25 PM CST Patient Requests to Speak to a Specific Provider Reason for call: Other: Patient called looking to talk to Dr Tejeda, he was treated last for Leftribs 09-27. He is calling complaining of Right and left rib pain. He was told to call if he had anymore pain. Let me know when someone talks to him how you would like to proceed. Thanks Radiation treatment details: The patient has received radiation treatment, the most recent date bein02/24/23 UNITY SUPPORT SPECIALIST documented in this encounter Plan of Treatment Upcoming Encounters Date Type Department Care Team (Late st Contact Info) Description 04/26/2023 3:15 PM COMMUNITY SUPPORT SPECIALIST Appointment Department of Radiation Oncology in [address] [place] [phone] Gurwinder Tejeda M.D. [address] [place] [phone] 05/03/2023 1:00 PM COMMUNITY SUPPORT SPECIALIST Appointment Department of Laboratory Medicine in [address] [phone] Carson Fletcher M.D. [address] [place] [phone] 05/03/2023 1:10 PM COMMUNITY SUPPORT SPECIALIST Appointment Department of Laboratory Medicine in [address] [phone] Carson Fletcher M.D. [address] [place] [phone] 2023 2:30 PM COMMUNITY SUPPORT SPECIALIST Virtual Visit Division of Pulmonary Medicine in [place], [place] [address] [place] [phone] Carson Fletcher M.D. [address] [place] [phone] 07/05/2023 11:20 AM CDT Lab Department of Laboratory Medicine and Pathology, [place], [place] [address] [place] [phone] Kallie Rosales APRN, C.N.P., M.S. [address] [place] [phone] 07/05/2023 12:45 PM CDT Appointment Department of Radiology, [facility] in [place], [place] [address] [place] [phone] Kallie Rosales APRN, C.N.P., M.S. [address] [place] [phone] 07/06/2023 11:30 AM CDT Office Visit Department of Urology in [place], [place] [address] [place] [phone] Sushant Vicente M.D. [address] [place] [phone] Scheduled Referrals Name Type Priority Associated Diagnoses Orde r Schedule Radiation Oncology office visit (clinic) Outpatient Referral Routine Expected: 04/08/2023 (Approximate), Expires: 06/30/2024 documented as of this encounter Visit Diagnoses Not on filedocumented in this encounter Additional Health Concerns Infection Onset Date Last Indicated Resolved Time Protective Environment 07/31/2022 07/31/2022 Assessment Noted Time PHQ-9 Depression Total Score: 2 10/13/19 14 10:45 AM CDT documented as of this encounter Care Teams Sheeter Machine Operator Relationship Specialty Start Date End Date Elsewhere, Pcp PCP - General Family Medicine 12/29/19 documented as of this encounter
--- OUTSIDE RECORDS SUMMARY | 2023-04-25 19:01 | XMS_ITS | Encounter Summary ---
Author Name Unknown Organization [facility] Address [address] [place] [address] Care Team Providers Care Recreation Engineer Name Role Phone Elsewhere, Pcp Primary Care Provider Unavailabl e Reason for Referral * Outpatient (Routine) - Closed Specialty Diagnoses / Procedures Referred By Contac t Referred To Contact Radiation Oncology Gurwinder Tejeda M.D. 200 [place] [address] [facility] Region Referral ID Status Reason Start Date Expiration Date Visits Re quested Visits Authorized [id number] Closed 02/18/2023 02/17/2026 1 1 Scheduling Instructions Prior to sim MANAGEMENT OFFICER * Radiation Therapy (Routine) - Authorized Specialty Diagnoses / Procedures Referred By Contac t Referred To Contact Diagnoses Secondary Malignant Neoplasm Bone (HCC) Procedures Management Visit Gurwinder Tejeda M.D. [address] [place] [phone] [facility] Region Referral ID Status Reason Start Date Expiration Date V isits Requested Visits Authorized [id number] Authorized 02/18/2023 02/18/2024 10 10 MANAGEMENT OFFICER * Radiation Therapy (Routine) - Authorized Specialty Diagnoses / Procedures Referred By Contac t Referred To Contact Diagnoses Secondary Malignant Neoplasm Bone (HCC) Procedures Prior Auth Rad Tx Gurwinder Tejeda M.D. [address] [place] [phone] [facility] Referral ID Status Reason Start Date Expiration Date V isits Requested Visits Authorized [id number] Authorized 02/18/2023 02/18/2024 1 1 MANAGEMENT OFFICER Encounter Details Date Type Department Care Team (Late st Contact Info) Description 02/18/2023 Orders Only Department of Radiation Oncology in [place], [place] [address] [place] [phone] Gurwinder Tejeda M.D. [address] [place] [phone] Secondary Malignant Neoplasm Bone (HCC) (Primary Dx) Social History Tobacco Use [...] How often do you attend [facility] or denominational services? Patient declined 02/03/2022 Do you belong to any clubs o r organizations such as worship groups, unions, fraternal or athletic groups, or [...] Answer Date Recorded PHQ-2 Score 2 09/24/2021 [facility] - Occupational Stress Questionnaire Answer Date [...] place to sleep or slept in a care home (including now)? No 02/03/2022 Nutrition Answer Date [...] st Contact Info) Description 04/26/2023 3:15 PM CASH MANAGEMENT OFFICER Appointment Department of Radiation Oncology in [address] [phone] Gurwinder Tejeda M.D. [address] [place] [phone] 05/03/2023 1:00 PM CASH MANAGEMENT OFFICER Appointment Department of Laboratory Medicine in [address] [phone] Carson Fletcher M.D. [address] [place] [phone] 05/03/2023 1:10 PM CASH MANAGEMENT OFFICER Appointment Department of Laboratory Medicine in [address] [phone] Carson Fletcher M.D. [address] [place] [phone] 2023 2:30 PM CASH MANAGEMENT OFFICER Virtual Visit Division of Pulmonary Medicine in [place], [place] [address] [place] [phone] Carson Fletcher M.D. [address] [place] [phone] 07/05/2023 11:20 AM CDT Lab Department of Laboratory Medicine and Pathology, [facility] in [place], [place] [address] [place] [phone] Kallie Rosales APRN, C.N.P., M.S. [address] [place] [phone] 07/05/2023 12:45 PM CDT Appointment Department of Radiology, [facility], in [place], [place] [address] [place] [phone] Kallie Rosales APRN, C.N.P., M.S. [address] [place] [phone] 07/06/2023 11:30 AM CDT Office Visit Department of Urology in [place], [place] [address] [place] [phone] Sushant Vicente M.D. [address] [place] [phone] Scheduled Orders Name Type Priority Associated Diagnoses Order Schedule Prior Auth Rad Tx Radiation Oncology Routine Secondary Malignant Neoplasm Bone (HCC) Ordered: 02/18/2023 Management Visit Radiation Oncology Routine Secondary Malignant Neoplasm Bone (HCC) 10 Occurrences starting 02/18/2023 until 02/19/2024 Scheduled Referrals Name Type Priority Associated Diagnoses Orde r Schedule Radiation Oncology office visit (clinic) Outpatient Referral Routine Expected: 02/19/2023 (Approximate), Expires: 02/19/2024 documented as of this encounter Visit Diagnoses Diagnosis Secondary Malignant Neoplasm Bone (HCC)- Primary documented in this encounter Additional Health Concerns Infection Onset Date Last Indicated Resolved Time Protective Environment 07/31/2022 07/31/2022 Assessment Noted Time PHQ-9 Depression Total Score: 2 10/13/19 14 10:45 AM CDT documented as of this encounter Care Teams Recreation Engineer Relationship Specialty Start Date End Date Elsewhere, Pcp PCP - General Family Medicine 12/29/19 documented as of this encounter
--- OUTSIDE RECORDS SUMMARY | 2023-04-25 19:01 | XMS_ITS | Encounter Summary ---
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 [address] [place] [phone] [facility] Referral ID Status Reason Start Date Expiration Date Visits Re quested Visits Authorized [id number] Closed 02/01/2023 02/01/2024 1 1 Encounter Details Date Type Department Care Team (Latest Contact Info) Description 02/18/2023 12:03 PM GRIPPER MACHINE OPERATOR - 02/18/2023 11:59 PM GRIPPER MACHINE OPERATOR Hospital Encounter Department of Radiology, [facility], in [place], [place] [address] [place] [phone] Kassie Cash P.A.-C., M.S. [address] [place] [address] Rising Prostate Specific Antigen Following Treatment For Malignant Cancer Of Prostate; Secondary Malignant Neoplasm Bone (HCC) Discharge Disposition: Home or Self Care Social [...] How often do you attend chur or cheondoism services? Patient declined 02/03/2022 Do you belong to any clubs o r organizations such as judaism groups, unions, fraternal or athletic groups, or [...] Answer Date Recorded PHQ-2 Score 2 09/24/2021 [facility] - Occupational Stress Questionnaire Answer Date [...] place to sleep or slept in a mcc (including now)? No 02/03/2022 Nutrition Answer Date [...] 2, 2 weeks apart at [facility] on 06/10/2022 and 06/24/2022. 0 06/10/2022 sulfamethoxazole-trim [...] 0 11/27/2021 documented as of this encounter Plan of Treatment Upcoming Encounters Date Type Department Care Team (Late st Contact Info) Description 04/26/2023 3:15 PM GRIPPER MACHINE OPERATOR Appointment Department of Radiation Oncology in [place], [place] [address] [place] [phone] Gurwinder Tejeda M.D. [address] [place] [phone] 05/03/2023 1:00 PM GRIPPER MACHINE OPERATOR Appointment Department of Laboratory Medicine in [address] [phone] Carson Fletcher M.D. [address] [place] [phone] 05/03/2023 1:10 PM GRIPPER MACHINE OPERATOR Appointment Department of Laboratory Medicine in [address] [phone] Carson Fletcher M.D. [address] [place] [phone] 2023 2:30 PM GRIPPER MACHINE OPERATOR Virtual Visit Division of Pulmonary Medicine in [place], [place] [address] [place] [phone] Carson Fletcher M.D. [address] [place] [phone] 07/05/2023 11:20 AM CDT Lab Department of Laboratory Medicine and Pathology, [facility] in [place], [place] [address] [place] [phone] Kallie Rosales APRN, C.N.P., M.S. [address] [place] [phone] 07/05/2023 12:45 PM CDT Appointment Department of Radiology, [facility], in [place], [place] [address] [place] [phone] Kallie Rosales APRN, C.N.P., M.S. [address] [place] [phone] 07/06/2023 11:30 AM CDT Office Visit Department of Urology in [place], [place] [address] [place] [phone] Sushant Vicente M.D. 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 Multiple enhancing intramedullary lesions in the right ilium and sacrum with corresponding elevated PSMA expression on the prior PET/CT, compatible with osseous metastatic disease. 2. Multiple pelvic insufficiency fractures involving bilateral pubic bodies and irina and left acetabulum as described. Narrative 02/18/2023 3:42 PM GRIPPER MACHINE OPERATOR EXAM: ??MR MUSCULOSKELETAL PELVIS WITHOUT AND [...] left acetabulum as described. Kassie Cash P.A.-C. MTavonS. 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 Given 02/18/2023 1:30 PM GRIPPER MACHINE OPERATOR 9 mL documented in this encounter Additional Health Concerns Infection Onset Date Last Indicated Resolved Time Protective Environment 07/31/2022 07/31/2022 Assessment Noted Time PHQ-9 Depression Total Score: 2 10/13/19 14 10:45 AM CDT documented as of this encounter Care Teams [employer] Truck Driver Relationship Specialty Start Date End Date Elsewhere, Pcp PCP - General Family Medicine 12/29/19 documented as of this encounter
--- OUTSIDE RECORDS SUMMARY | 2023-04-25 19:01 | XMS_ITS | Encounter Summary ---
Author Name Unknown Organization [facility] Address [address] [place] [address] Care Team Providers Care Solar Engineer Name Role Phone Elsewhere, Pcp Primary Care Provider Unavailabl e Reason for Referral * Outpatient (Routine) - Closed Specialty Diagnoses / Procedures Referred By Brittni t Referred To Contact Radiation Oncology Gurwinder Tejeda M.D. [address] [place] [phone] [facility] Region Referral ID Status Reason Start Date Expiration Date Visits Re quested Visits Authorized [id number] Closed 02/05/2023 02/04/2026 1 1 PHONE TEACHER Reason for Visit * Outpatient (Routine) - Closed Specialty Diagnoses / Procedures Referred By Brittni callejas Referred To Contact Radiation Oncology [place] [phone] [facility] Referral ID Status Reason Start Date Expiration Date Visits Re quested Visits Authorized [id number] Closed 02/05/2023 02/04/2026 1 1 Encounter Details Date Type Department Care Team (Latest Contact Info) Description 02/17/2023 9:57 AM SAXOPHONE TEACHER - 02/17/2023 12:03 PM SAXOPHONE TEACHER Hospital Encounter Department of Radiation Oncology in [address] [phone] Gurwinder Tejeda M.D. [address] [place] [phone] Secondary Malignant Neoplasm Bone (HCC) (Primary Dx); Primary Malignant Neoplasm Of Prostate (HCC) Social History Tobacco Use Types Packs/Day [...] week 02/03/2022 How often do you attend [facility] or [facility] services? Patient declined 02/03/2022 Do you belong [...] Answer Date Recorded PHQ-2 Score 2 09/24/2021 [facility] - Occupational Stress Questionnaire Answer [...] place to sleep or slept in a residential (including now)? No 02/03/2022 Nutrition Answer Date [...] mg x 2, 2 weeks apart at [facility] on 06/10/2022 and 06/24/2022. 0 06/10/2022 [...] this encounter Progress Notes * Florecita Starks APRN C.N.P., D.N.P. - 02/17/2023 10:00 AM CST SUBJECTIVE DIAGNOSIS 1. Secondary Malignant Neoplasm Bone (HCC) 2. Primary Malignant Neoplasm Of Prostate (HCC) SUPERVISED BY: Gurwinder Tejeda MD [id number] PHONE VISIT Follow-up visit conducted via telephone by Florecita Starks APRN, C.N.PTavon to the patient at [phone]. Verbal consent was obtained for this telephone visit by the patient during the encounter. Telephone medical visits may be billed to insurance the same as if the patient were being seen face to face. HISTORY OF PRESENT ILLNESS Mr. Lashell Gates is a 77 y.o. 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 He recently completed a single fraction of radiation therapy to sternum and T3-T8. He is being contacted to evaluate pain relief. His oncologic history is as follows: Oncology History Primary Malignant Neoplasm Of Prostate (HCC) 02/21/2004 Other PSA 4.6 ng/mL 07/01/2004 Surgery and Procedures Underwent robotic-assisted radical prostatectomy by Dr. Duque. Pathology revealed [place] 3 + 3, pT2c, N0, MX, R0 [...] in [address] Cole at [place], [place] for a biochemical recurrence. 12/26/2013 Other [...] multiple scattered radiotracer positive osseous lesions including financial services representative examples involving the T2 vertebral body, SUV max 26.7, T4 vertebral body, SUV max 20.6,and right posterior iliac bone, SUV max 26.9. 02/05/2023 - 02/05/2023 Radiation Therapy 800 cGy in 1 fraction to the sternum and T3 - T8 02/15/2023 Other PSA 21.2 ng/mL INTERVAL HISTORY The patient reports significant improvement to his sternum. He is no longer experiencing any pain. He reports significant improvement also to the thoracic spine that was previously treated. He continues having pain in the area, but is mentally decreased. He rates it on average 1-3/10. He is experiencing a significant increase in rib pain. He reports at its worst it is 8+/10. He was provided a prescription for hydromorphone from [facility] in which he utilizes as needed. This sometimes helps decrease the pain to a 1/10. He has been experiencing an improvement in his bowel movements overall. He is not having as many loose stools, but he is also increasing his pain med intake. He is not experienced any fecal incontinence recently. He is experiencing fecal urgency. He denies pain anywhere else. ASSESSMENT / PLAN #1 pT2c, N0, MX, [...] the thoracic spine, sternum, and ribs #11 Single fraction radiotherapy to the sternum and T3-T8 administered on February 05, 2023 It was a pleasure to talk with Al today. The pain he was experiencing in the sternum and thoracic spine is greatly improved after receiving radiation treatment to those areas. He is now unfortunatelyexperiencing increased pain in his ribs. I reviewed Dr. Tejeda's recommendations of pursuing additional radiation treatment to his ribs for pain relief. He would like to review his next steps with Dr. Vicente before proceeding with further radiation treatment. He is scheduled to meet with him again tomorrow, February 18. I informed the patient I will keep tabs on Dr. Vicente's note to review what they discussed and how to proceed. The patient reports if Dr. Vicente recommends further radiation he willplan to call us on Wednesday to set up appointments. I reviewed that he is set up to have an MR of the pelvis completed tomorrow due to recent bowel habit changes of increased diarrhea and fecal incontinence. We will also be in touch with him in the coming days to review those results. He was provided a prescription for hydromorphone by [facility] for increased rib pain. I discussed contacting them if he needs a refill at any time. I updated Dr. Tejeda in coordination with this phone call in which he verbalized agreement to the plan. The patient was encouraged to contact us with questions or concerns. He verbally expressed his understanding of the plan. EDUCATION Ready to learn, no apparent learning barriers were identified; learning preferences include listening. Explained diagnosis and treatment plan; patient expressed understanding of the content. I personally spent 25 minutes in care of the patient today. Time includes both non face to face andface to face patient care. Signed by: Florecita Starks APRN, C.N.P., D.N.P. 02/17/2023 11:54 AM [facility] [address] [place] [address] PHONE TEACHER documented in this encounter Plan of Treatment Upcoming Encounters Date Type Department Care Team (Late st Contact Info) Description 04/26/2023 3:15 PM SAXOPHONE TEACHER Appointment Department of Radiation Oncology in [place], [place] [address] [place] [phone] Gurwinder Tejeda M.D. [address] [place] [phone] 05/03/2023 1:00 PM SAXOPHONE TEACHER Appointment Department of Laboratory Medicine in [address] [phone] Carson Fletcher M.D. [address] [place] [phone] 05/03/2023 1:10 PM SAXOPHONE TEACHER Appointment Department of Laboratory Medicine in [address] [phone] Carson Fletcher M.D. [address] [place] [phone] 2023 2:30 PM SAXOPHONE TEACHER Virtual Visit Division of Pulmonary Medicine in [place], [place] [address] [place] [phone] Carson Fletcher M.D. [address] [place] [phone] 07/05/2023 11:20 AM CDT Lab Department of Laboratory Medicine and Pathology, [facility], in [place], [place] [address] [place] [phone] Kallie Rosales APRN, C.N.P., M.S. [address] [place] [phone] 07/05/2023 12:45 PM CDT Appointment Department of Radiology, [facility], in [place], [place] [address] [place] [phone] Kallie Rosales APRN, C.N.P., M.S. [address] [place] [phone] 07/06/2023 11:30 AM CDT Office Visit Department of Urology in [place], [place] [address] [place] [phone] Sushant Vicente M.D. [address] [place] [phone] Scheduled Referrals Name Type Priority Associated Diagnoses Order Schedule Radiation Oncology office visit (clinic) Outpatient Referral Routine Once for 1 Occurrences starting 02/17/2023 until 02/17/2023 documented as of this encounter Visit Diagnoses Diagnosis Secondary Malignant Neoplasm Bone (HCC)- Primary Primary Malignant Neoplasm Of Prostate (HCC) documented in this encounter Additional Health Concerns Infection Onset Date Last Indicated Resolved Time Protective Environment 07/31/2022 07/31/2022 Assessment Noted Time PHQ-9 Depression Total Score: 2 10/13/19 14 10:45 AM CDT documented as of this encounter Care Teams Solar Engineer Relationship Specialty Start Date End Date Elsewhere, Pcp PCP - General Family Medicine 12/29/19 documented as of this encounter
--- OUTSIDE RECORDS SUMMARY | 2023-04-25 19:01 | XMS_ITS | Encounter Summary ---
Author Name Unknown Organization [facility] Address [address] [place] [address] Care Team Providers Care Cryptologic Technician Operator/Analyst Name Role Phone Elsewhere, Pcp Primary Care Provider Unavailabl e Reason for Referral * Outpatient (Routine) - Closed Specialty Diagnoses / Procedures Referred By Brittni t Referred To Contact Radiation Oncology Gurwinder Tejeda M.D. [address] [place] [phone] [facility] Region Referral ID Status Reason Start Date Expiration Date Visits Re quested Visits Authorized [id number] Closed 02/18/2023 02/17/2026 1 1 Scheduling Instructions Prior to sim TURBINE ERECTOR Reason for Visit * Outpatient (Routine) - Closed Specialty Diagnoses / Procedures Referred By Brittni callejas Referred To Contact Radiation Oncology Gurwinder Tejeda M.D. 200 [place] [address] [facility] Region Referral ID Status Reason Start Date Expiration Date Visits Re quested Visits Authorized [id number] Closed 02/18/2023 02/17/2026 1 1 Encounter Details Date Type Department Care Team (Latest Contact Info) Description 02/19/2023 12:17 PM WIND TURBINE ERECTOR - 02/19/2023 4:24 PM WIND TURBINE ERECTOR Hospital Encounter Department of Radiation Oncology in [address] [phone] [place] [phone] Secondary Malignant Neoplasm Bone (HCC) (Primary Dx); [...] week 02/03/2022 How often do you attend [facility] or yarsanism services? Patient declined 02/03/2022 Do you belong to any clubs o r organizations such as latter-day groups, unions, fraternal or athletic groups, or [...] Answer Date Recorded PHQ-2 Score 2 09/24/2021 [facility] of Occupat ional [facility] - Occupational Stress Questionnaire Answer Date [...] place to sleep or slept in a nursing home (including now)? No 02/03/2022 Nutrition Answer [...] Sign Reading Time Taken Comments Blood Pressure 120/52 02/19/2023 12:54 PM WIND TURBINE ERECTOR Pulse 91 02/19/2023 12:54 PM WIND TURBINE ERECTOR Temperature 36.3 ??C (97.4 ??F) 02/19/2023 12:[address] Respiratory Rate - - Oxygen Saturation - - Inhaled Oxygen Concentration - - Weight 82 kg (180 lb 12.4 oz) 02/19/2023 12:54 P M WIND TURBINE ERECTOR Height - - Body Mass Index 27.85 12/22/2022 1:50 PM CDT documented in this [...] mg x 2, [address] [facility] on 06/10/2022 and 06/24/2022. 0 06/10/2022 [...] * Florecita Starks APRN, C.N.P., D.N.P. - 02/19/2023 1:00 PM CST SUBJECTIVE REQUESTING PROVIDER Gurwinder Tejeda M.D. REASON FOR CONSULT 1. Secondary Malignant Neoplasm Bone (HCC) 2. Primary Malignant Neoplasm Of Prostate (HCC) SUPERVISED BY: Gurwinder Tejeda M.D. ([id number]) HISTORY OF PRESENT ILLNESS Mr. Lashell Gates is a 77 y.o. 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 He recently completed a single fraction of radiation therapy to sternum and T3-T8. He returns today for further radiation treatment to painful rib metastases. His oncologic history is as follows: Oncology History Primary Malignant Neoplasm Of Prostate (HCC) 02/21/2004 Other PSA 4.6 ng/mL 07/01/2004 Surgery and Procedures Underwent robotic-assisted radical prostatectomy by Dr. Duque. Pathology revealed [place] 3 + 3, pT2c, N0, MX, R0 [...] in [address] Cole at [place], [place] for a biochemical recurrence. 12/26/2013 Other [...] multiple scattered radiotracer positive osseous lesions including tax compliance representative examples involving the T2 vertebral body, [...] and irina and left acetabulum as described. INTERVAL HISTORY The patient was seen and examined today with Dr. Tejeda. The patient reports pain to his sternum is greatly improved. He continues to have intermittent verymild discomfort to the area. His pain in his thoracic spine is greatly reduced as well, rating in on average 1-2/10. Pain in his ribs have increased and now can be as bad as 8/10. He reports it mostly in his left lateral chest. He was provided hydromorphone by Dr. Mott which he takes 2-3 tablets daily in addition to Tylenol. He finds this somewhat helpful with pain relief. He plans to pursue 's recommendations of chemotherapy with Dr. Mott. He has appointments set up on March 01 for this. Over this past weekend, he has experienced an increase in pain in his left hip. This mostly occurs when he is up moving around. Sitting or standing he has no pain in the left hip. He reportsthe hip is mostly sharp when he starts to move, but after 10-15 steps the pain does subside some but is still present. At its worse he rates the pain 5-6/10. He continues having loose frequent stools, along with occasional fecal incontinence. His ECOG performance status is 1. REVIEW OF SYSTEMS Review of systems was negative except as documented above. PATIENT REPORTED SYMPTOM SCREEN FATIGUE (Scale: 0 = no fatigue; 10 = worst fatigue you can imagine): 5 PAIN (Scale: 0 = no pain; 10 = worst pain you can imagine): 8 OVERALL QUALITY OF LIFE (Scale: 0 = as bad as can be; 10 = as good as can be): 5 OBJECTIVE BP (!) 120/52 (BP Location: Right arm, Patient Position: Sitting) Pulse 91 Temp 36.3 ??C (Temporal) Wt 82 kg BMI 27.85 kg/m?? PHYSICAL EXAM General: Patient is alert and oriented in no apparent distress. Neck: Supple. Lymph: No palpable cervical, supraclavicular, infraclavicular, or axillary adenopathy. Spine: There is no tenderness to palpation of the spine. There is point tenderness to the left lateral chest, around the 7th to 9th ribcage. He denies pain to palpation in either hips. ASSESSMENT / PLAN #1 pT2c, N0, MX, RO, [place] 3+3, PSA 4.6 adenocarcinoma of the prostate [...] 05, 2023 It was a pleasure to meet with Al today. He is experiencing pain relief to the previously treated sternum and thoracic spine, but worsening pain to left lateral chest, roughly left lateral 7th-9th ribs. We discussed the risks, benefits, and alternatives of radiotherapy in this setting. We discussedthe recommendation for radiation treatment to his left 7th - 9th lateral rib metastases in 1 fraction. I discussed the logistics, as well as, the acute and chronic side effects of treatment in detail. The acute side effects may include, but are not limited to, skin irritation, pain flare, and fatigue.Long-term side effects will be minimal. His questions were answered to their verbalized satisfaction. He will reach out to Dr. Mott's team for additional hydromorphone prescription as he may run out. If he is unable to obtain this, we said we could provide a 1 time refill for this. He will contactus and let us know if this is needed. We reviewed his most recent MR of his pelvis. This demonstrated insufficiency fractures in the bilateral pubic bodies. This may be contributing to his left hip pain. There does not appear to be any metastases in this area on his latest PET-CT scan. He scheduled an appointment with Orthopedics on March 01 as well. We encouraged him to follow up with that in regards to his hip pain. After discussion, the patient verbally stated that he would like to proceed with treatment. We anticipate starting radiation therapy on February 24. Patient seen in collaboration with Dr. Tejeda, [...] plan; patient expressed understanding of the content. CONSENT Discussed the risks, benefits, alternatives, and the necessity of other members of the healthcare team participating in the procedure. All questions answered and consent given. Previously signed. I personally spent 30 minutes in care of the patient today. Time includes both non face to face andface to face patient care. Signed by: Florecita Starks APRN, C.N.P., Alina.N.P. 02/19/2023 2:02 PM WIND TURBINE ERECTOR [facility] [address] [place] [phone] TURBINE ERECTOR Associated attestation - Gurwinder Tejeda M.D. - 02/19/2023 4:23 PM WIND TURBINE ERECTOR I saw and evaluated the patient and participated in the [place] portions of the service. I reviewed thedocumentation of Florecita Starks C.N.P. and agree with the findings and plan. The patient appearswell on exam. He is here with his Diana in 2 week follow-up after we treated his sternum and T3 through T8 vertebral bodies with 8 Gy in 1 fraction for painful metastases from prostate cancer. He has had good pain relief from this treatment. He is now experiencing pain in his left low anterior ribcage as well as in his left hip area. He has continued issues with fecal incontinence. We ordered an MRI of his pelvis to assess this. 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 This looks degenerative rather than metastatic. He is visiting with Dr. Dakota Joy at [facility] in [place] on March 01, 2023. He has his next visit with Dr. Mott that day as well and will likely be initiated on systemic therapy. I recommend treatment to his left anterior seventh through ninth ribs to a dose of 8 Gy in 1 fraction. He is taking 2-3 times daily. This prescription came from Dr. Mott. If he can not get it filled through Dr. Mott, I agreed to give him a 1 time prescription for this. He will likely have his treatment on Friday, February 24, 2023. The patient and his verbalized satisfaction with this plan. I spent a total of 15 minutes caring for the patient in [id number] and non [id number] time. Signed by: Gurwinder Tejeda M.D. 02/19/23 4:23 PM WIND TURBINE ERECTOR [facility] [place] documented in this encounter Miscellaneous Notes * Addendum Note - Lorin Ward C.NVero - 02/19/2023 1:00 PM CSTEncounter addended by: Lorin Ward C.NVero on: 02/22/2023 7:15 AM Actions taken: Letter saved TURBINE ERECTOR documented in this encounter Plan of Treatment Upcoming Encounters Date Type Department Care Team (Late st Contact Info) Description 04/26/2023 3:15 PM WIND TURBINE ERECTOR Appointment Department of Radiation Oncology in [place] [address] [place] [address] Gurwinder Tejeda M.D. [address] [place] [phone] 05/03/2023 1:00 PM WIND TURBINE ERECTOR Appointment Department of Laboratory Medicine in [address] [phone] Carson Fletcher M.D. [address] [place] [phone] 05/03/2023 1:10 PM WIND TURBINE ERECTOR Appointment Department of Laboratory Medicine in [address] [phone] Carson [facility] M.D. [address] [place] [phone] 2023 2:30 PM WIND TURBINE ERECTOR Virtual Visit Division of Pulmonary Medicine in [place], [place] [address] [place] [phone] [facility] M.D. [address] [place] [phone] 07/05/2023 11:20 AM CDT Lab Department of Laboratory Medicine and Pathology, [facility] in [place], [place] [address] [place] [phone] Kallie Rosales APRN, C.N.P., M.S. [address] [place] [phone] 07/05/2023 12:45 PM CDT Appointment Department of Radiology, [facility] in [place], [place] [address] [place] [phone] Kallie Rosales APRN, C.N.P., M.S. [address] [place] [phone] 07/06/2023 11:30 AM CDT Office Visit Department of Urology in [place], [place] [address] [place] [phone] Sushant Vicente M.D. [address] [place] [phone] Scheduled Referrals Name Type Priority Associated Diagnoses Order Schedule Radiation Oncology office visit (clinic) Outpatient Referral Routine Once for 1 Occurrences starting 02/19/2023 until 02/19/2023 documented as of this encounter Visit Diagnoses Diagnosis Secondary Malignant Neoplasm Bone (HCC)- Primary Primary Malignant Neoplasm Of Prostate (HCC) documented in this encounter Additional Health Concerns Infection Onset Date Last Indicated Resolved Time Protective Environment 07/31/2022 07/31/2022 Assessment Noted Time PHQ-9 Depression Total Score: 2 10/13/19 14 10:45 AM CDT documented as of this encounter Care Teams Cryptologic Technician Operator/Analyst Relationship Specialty Start Date End Date Elsewhere, Pcp PCP - General Family Medicine 12/29/19 documented as of this encounter
--- OUTSIDE RECORDS SUMMARY | 2023-04-25 19:01 | XMS_ITS | Encounter Summary ---
Author Name Unknown Organization [facility] Address [address] [place] [address] Care Team Providers Care Real Estate Operations Manager Name Role Phone Elsewhere, Pcp Primary Care Provider Unavailabl e Encounter Details Date Type Department Care Team (Latest Contact Info) Description 02/24/2023 1:36 PM [facility] Hospital Encounter Department of Radiation Oncology in [place], [place] [address] [place] [phone] Gurwinder Tejeda M.D. [address] [place] [address] Discharge Disposition: Home or Self Care Social [...] often do you attend chur ch or sabianism services? Patient declined 02/03/2022 Do you belong to any clubs o r organizations such as uatsdin groups, unions, fraternal or athletic groups, or [...] PHQ-2 Score 2 09/24/2021 [facility] Questionnaire Answer Date [...] x 2, 2 weeks apart at [facility] on 06/10/2022 and 06/24/2022. 0 06/10/2022 sulfamethoxazole-trim [...] st Contact Info) Description 04/26/2023 3:15 PM FUNERAL ASSISTANT Appointment Department of Radiation Oncology in [place] [address] [place] [phone] Gurwinder Tejeda M.D. [address] [place] [phone] 05/03/2023 1:00 PM FUNERAL ASSISTANT Appointment Department of Laboratory Medicine in [address] [phone] Carson Fletcher M.D. [address] [place] [phone] 05/03/2023 1:10 PM FUNERAL ASSISTANT Appointment Department of Laboratory Medicine in [address] [phone] Carson Fletcher M.D. [address] [place] [phone] 2023 2:30 PM FUNERAL ASSISTANT Virtual Visit Division of Pulmonary Medicine in [place], [place] [address] [place] [phone] Carson Fletcher M.D. [address] [place] [phone] 07/05/2023 11:20 AM CDT Lab Department of Laboratory Medicine and Pathology, [place], [place] [address] [place] [phone] Kallie Rosales APRN, C.N.P., M.S. [address] [place] [phone] 07/05/2023 12:45 PM CDT Appointment Department of Radiology, [facility], in [place], [place] [address] [place] [phone] Kallie Rosales APRN, C.N.P., M.S. [address] [place] [phone] 07/06/2023 11:30 AM CDT Office Visit Department of Urology in [place], [place] [address] [place] [phone] Sushant Vicente M.D. [address] [place] [phone] documented as of this encounter Visit Diagnoses Not on filedocumented in this encounter Additional Health Concerns Infection Onset Date Last Indicated Resolved Time Protective Environment 07/31/2022 07/31/2022 Assessment Noted Time PHQ-9 Depression Total Score: 2 10/13/19 14 10:45 AM CDT documented as of this encounter Care Teams Real Estate Operations Manager Relationship Specialty Start Date End Date Elsewhere, Pcp PCP - General Family Medicine 12/29/19 documented as of this encounter
--- OUTSIDE RECORDS SUMMARY | 2023-04-25 19:01 | XMS_ITS | Encounter Summary ---
Author Name Unknown Organization [facility] Address [address] [place] [address] Care Team Providers Care Thread Cutter Tender Name Role Phone Elsewhere, Pcp Primary Care Provider Unavailabl e Reason for Visit * Reason Onset Date Comments Phone Call 02/15/2023 Encounter Details Date Type Department Care Team ([facility] st Contact Info) Description 02/15/2023 Clinical Communication Department of Urology in [place], [place] [address] [place] [phone] Sushant Vicente M.D. [address] [place] [phone] Phone Call Social History Tobacco Use Types Packs/Day Years [...] often do you attend chur ch or adventist services? Patient declined 02/03/2022 Do you belong to any clubs o r organizations such as buddhist groups, unions, fraternal or athletic groups, or [...] Answer Date Recorded PHQ-2 Score 2 09/24/2021 [facility] Questionnaire Answer [...] place to sleep or slept in a group home (including now)? No 02/03/2022 Nutrition Answer [...] st Contact Info) Description 04/26/2023 3:15 PM CERTIFIED DIABETES EDUCATOR Appointment Department of Radiation Oncology in [place], [place] [address] [place] [phone] Gurwinder Tejeda M.D. [address] [place] [phone] 05/03/2023 1:00 PM CERTIFIED DIABETES EDUCATOR Appointment Department of Laboratory Medicine in [address] [phone] Carson Fletcher M.D. [address] [place] [phone] 05/03/2023 1:10 PM CERTIFIED DIABETES EDUCATOR Appointment Department of Laboratory Medicine in [address] [phone] Carson Fletcher M.D. [address] [place] [phone] 2023 2:30 PM CERTIFIED DIABETES EDUCATOR Virtual Visit Division of Pulmonary Medicine in [place], [place] [address] [place] [phone] Carson Fletcher M.D. [address] [place] [phone] 07/05/2023 11:20 AM CDT Lab Department of Laboratory Medicine and Pathology, [facility] in [place], [place] [address] [place] [phone] Kallie Rosales APRN, C.N.P., M.S. [address] [place] [phone] 07/05/2023 12:45 PM CDT Appointment Department of Radiology, [facility] in [place], [place] [address] [place] [phone] Kallie Rosales APRN, C.N.P., M.S. [address] [place] [phone] 07/06/2023 11:30 AM CDT Office Visit Department of Urology in [place], [place] [address] [place] [phone] Sushant Vicente M.D. [address] [place] [phone] documented as of this encounter Visit Diagnoses Not on filedocumented in this encounter Additional Health Concerns Infection Onset Date Last Indicated Resolved Time Protective Environment 07/31/2022 07/31/2022 Assessment Noted Time PHQ-9 Depression Total Score: 2 10/13/19 14 10:45 AM CDT documented as of this encounter Care Teams Thread Cutter Tender Relationship Specialty Start Date End Date Elsewhere, Pcp PCP - General Family Medicine 12/29/19 documented as of this encounter
--- OUTSIDE RECORDS SUMMARY | 2023-04-25 19:01 | XMS_ITS | Encounter Summary ---
Author Name Unknown Organization [facility] Address [address] [place] [address] Care Team Providers Care Rough Rounder Name Role Phone Elsewhere, Pcp Primary Care Provider Unavailabl e Encounter Details Date Type Department Care Team (Latest Contact Info) Description 02/15/2023 1:03 PM SALES SPECIAL AGENT - 02/15/2023 11:59 PM SALES SPECIAL AGENT Hospital Encounter Department of Laboratory Medicine in [address] [phone] Carson Fletcher M.D. 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 Patient declined 02/03/2022 Do you belong to any clubs o r organizations such as mormonism groups, unions, fraternal or athletic groups, or [...] Answer Date Recorded PHQ-2 Score 2 09/24/2021 [facility] - Occupational [...] place to sleep or slept in a fci (including now)? No 02/03/2022 Nutrition Answer Date [...] mg x 2, 2 weeks apart at [facility] on 06/10/2022 and 06/24/2022. 0 06/10/2022 sulfamethoxazole-trim [...] st Contact Info) Description 04/26/2023 3:15 PM SALES SPECIAL AGENT Appointment Department of Radiation Oncology in [place] [id number] [place] [address] Gurwinder Tejeda M.D. [address] [place] [phone] 05/03/2023 1:00 PM SALES SPECIAL AGENT Appointment Department of Laboratory Medicine in [address] [phone] Carson Fletcher M.D. [address] [place] [phone] 05/03/2023 1:10 PM SALES SPECIAL AGENT Appointment Department of Laboratory Medicine in [address] [phone] Carson Fletcher M.D. [address] [place] [phone] 2023 2:30 PM SALES SPECIAL AGENT Virtual Visit Division of Pulmonary Medicine in [place], [place] [address] [place] [phone] Carson Fletcher M.D. [address] [place] [phone] 07/05/2023 11:20 AM CDT Lab Department of Laboratory Medicine and Pathology, [facility] in [place], [place] [address] [place] [phone] Kallie Rosales APRN, C.N.P., M.S. [address] [place] [phone] 07/05/2023 12:45 PM CDT Appointment Department of Radiology, [facility], in [place], [place] [address] [place] [phone] Kallie Rosales APRN, C.N.P., M.S. [address] [place] [phone] 07/06/2023 11:30 AM CDT Office Visit Department of Urology in [place], [place] [address] [place] [phone] Sushant Vicente M.D. 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) CYTOPLASMIC NEUTROPHIL ABS, S Routine 02/15/2023 1:10 PM SALES SPECIAL AGENT SEDIMENTATION RATE, B Routine 02/15/2023 1:10 PM SALES SPECIAL AGENT 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) CBC WITH DIFFERENTIAL, B Routine 02/15/2023 1:10 PM SALES SPECIAL AGENT 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) C-REACTIVE PROTEIN (CRP), S/P Routine 02/15/2023 1:10 PM SALES SPECIAL AGENT 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) URIC ACID, S/P Routine 02/15/2023 1:10 PM SALES SPECIAL AGENT 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) PROSTATE-SPECIFIC AG (PSA) DIAGNOSTIC, S Routine 02/15/2023 1:10 PM SALES SPECIAL AGENT Primary Malignant Neoplasm Of Prostate (HCC) PHOSPHORUS (INORGANIC), S Routine 02/15/2023 1:10 PM SALES SPECIAL AGENT 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) GLUCOSE, FASTING, S/P Routine 02/15/2023 1:10 PM SALES SPECIAL AGENT 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 Consistent with ANCA-associated vasculitis, if compatible clinical features are present. ----ADDITIONAL INFORMATION---- This test was developed and its performance characteristics determined by [facility] in a manner consistent with CLIA requirements. This test has not been cleared or approved by the U.S. Food and Drug Administration. Blood 02/15/2023 1:10 PM SALES SPECIAL AGENT 02/16/2023 5:31 PM SALES SPECIAL AGENT Carson Fletcher M.D. LAB BLOOD ADD-ON Performing Organization Address City/[facility] Co de Phone Number [facility] [address] [place] [address] [facility] [address] [place] [address] [place] [address] * (ABNORMAL) Morphology Evaluation (02/15/2023 1:10 PM SALES SPECIAL AGENT) RBC Morphology See Specific Findings 02/15/2023 2:13 PM SALES SPECIAL AGENT CNFL PLT Morphology Normal 02/15/2023 2:13 PM SALES SPECIAL AGENT CNFL PLT Estimate Adequate Adequate 02/15/2023 2:13 PM SALES SPECIAL AGENT CNFL Anisocytosis Slight(A) 02/15/2023 2:13 PM SALES SPECIAL AGENT CNFL Macrocytosis Marked(A) Not Seen 02/15/2023 2:13 PM SALES SPECIAL AGENT CNFL Blood 02/15/2023 1:10 PM SALES SPECIAL AGENT 02/15/2023 1:12 PM SALES SPECIAL AGENT Carson Fletcher M.D. LAB BLOOD ADD-ON Performing Organization Address [facility] Co de Phone Number [facility] [address] [place] [phone], [facility] CNFL [facility] in [address] [address] * (ABNORMAL) PSA (Prostate-Specific Antigen), Diagnostic (02/15/2023 1:10 PM SALES SPECIAL AGENT) Prostate-Specific Ag 21.2(H) <=6.5 ng/mL 02/15/2023 8:02 PM SALES SPECIAL AGENT RDWG Comment: ----ADDITIONAL INFORMATION---- The testing method is an electrochemiluminescence assay manufactured by [employer] and performed on the Modular or Lana system. Values obtained with different assay methods or kits may be different and cannot be used interchangeably. Test results cannot be interpreted as absolute evidence for the presence or absence of malignant disease. Blood (Blood, Venous) 02/15/2023 1:10 PM SALES SPECIAL AGENT 02/15/2023 7:22 PM SALES SPECIAL AGENT Kallie Rosales APRN, C.N.P., M.S. LAB BLOOD ADD-ON Performing Organization Address City/State/[facility] Co de Phone Number [facility] [address] [place] [address], [facility] RDWG [facility] in [place] [address] [place] [phone] * (ABNORMAL) CD20 on B Cells (02/15/2023 1:10 PM SALES SPECIAL AGENT) CD45 Absolute 0.40(L) 1.00 - 3.33 thou/mcL 02/17/2023 2:57 PM SALES SPECIAL AGENT SDSC %CD19 B-Cells 0(L) 4.6 - 22.1 % 02/17/2023 2:57 PM SALES SPECIAL AGENT SDSC %CD20 B-Cells 0(L) 5.0 - 22.3 % 02/17/2023 2:57 PM SALES SPECIAL AGENT SDSC CD19 Absolute 0(L) 56.6 - 417.4 cells/mcL 02/17/2023 2:57 PM SALES SPECIAL AGENT SDSC CD20 Absolute 0(L) 74.4 - 441.1 cells/mcL 02/17/2023 2:57 PM SALES SPECIAL AGENT SDSC Comment: ----ADDITIONAL INFORMATION---- Reference values implemented June 20, 2008. This test was developed using an analyte specific reagent. Its performance characteristics were determined by [facility] in a manner consistent with CLIA requirements. This test has not been cleared or approved by the U.S. Food and Drug Administration. Blood (Blood, Venous) 02/15/2023 1:10 PM SALES SPECIAL AGENT 02/16/2023 8:27 AM SALES SPECIAL AGENT Carson Fletcher M.D. LAB BLOOD ADD-ON [facility] [address] [place] [address] [facility] [address] [place] [address] [place] [address] * (ABNORMAL) Uric Acid (02/15/2023 1:10 PM SALES SPECIAL AGENT) Uric Acid, P 3.3(L) 3.7 - 8.0 mg/dL 02/15/2023 1:33 PM SALES SPECIAL AGENT CNFL Blood (Blood, Venous) 02/15/2023 1:10 PM SALES SPECIAL AGENT 02/15/2023 1:12 PM SALES SPECIAL AGENT Carson Fletcher M.D. LAB BLOOD ADD-ON Performing Organization Address City/[facility]/ZIP Co de Phone Number [facility] [address] [place] [phone], [facility] CNFL [address] [address] * Phosphorus Inorganic (02/15/2023 1:10 PM SALES SPECIAL AGENT) Phosphorus (Inorganic), P 3.7 2.5 - 4.5 mg/dL 02/15/2023 1:33 PM SALES SPECIAL AGENT CNFL Blood (Blood, Venous) 02/15/2023 1:10 PM SALES SPECIAL AGENT 02/15/2023 1:12 PM SALES SPECIAL AGENT Carson Fletcher M.D. LAB BLOOD ADD-ON [facility] [address] [place] [address], [facility] [address] [address] * (ABNORMAL) Glucose, Fasting (02/15/2023 1:10 PM SALES SPECIAL AGENT) Glucose, P 117(H) 70 - 100 mg/dL 02/15/2023 1:29 PM SALES SPECIAL AGENT CNFL Last Intake 10 hr 02/15/2023 1:12 PM SALES SPECIAL AGENT CNFL Blood (Blood, Venous) 02/15/2023 1:10 PM SALES SPECIAL AGENT 02/15/2023 1:12 PM SALES SPECIAL AGENT Carson Fletcher M.D. LAB BLOOD NON ADD-ON [facility] [address] [place] [address], [facility] CNFL [facility] in [address] [address] * (ABNORMAL) Sedimentation Rate (02/15/2023 1:10 PM SALES SPECIAL AGENT) Sedimentation Rate, B 26(H) 0 - 22 mm/1 h 02/15/2023 7:56 PM SALES SPECIAL AGENT RDWG Blood (Blood, Venous) 02/15/2023 1:10 PM SALES SPECIAL AGENT 02/15/2023 7:22 PM SALES SPECIAL AGENT Carson Fletcher M.D. LAB BLOOD ADD-ON [facility] [address] [place] [address], [facility] RDWG [facility] in [address] [place] [address] * CRP (C-Reactive Protein) (02/15/2023 1:10 PM SALES SPECIAL AGENT) C-Reactive Protein (CRP), P 4.2 <5.0 mg/L 02/15/2023 1:33 PM SALES SPECIAL AGENT CNFL Blood (Blood, Venous) 02/15/2023 1:10 PM SALES SPECIAL AGENT 02/15/2023 1:12 PM SALES SPECIAL AGENT Carson Fletcher M.D. LAB BLOOD ADD-ON [facility] [address] [place] [address], [place] CNFL [facility] in [address] [address] * Comprehensive Metabolic Panel (02/15/2023 1:10 PM SALES SPECIAL AGENT) Potassium, P 3.9 3.6 - 5.2 mmol/L 02/15/2023 1:33 PM SALES SPECIAL AGENT CNFL Sodium, P 139 135 - 145 mmol/L 02/15/2023 1:33 PM SALES SPECIAL AGENT CNFL Chloride, P 101 98 - 107 mmol/L 02/15/2023 1:33 PM SALES SPECIAL AGENT CNFL Bicarbonate, P 27 22 - 29 mmol/L 02/15/2023 1:33 PM SALES SPECIAL AGENT CNFL Anion Gap, P 11 7 - 15 02/15/2023 1:33 PM SALES SPECIAL AGENT CNFL BUN (Blood Urea Nitrogen), P 16 8 - 24 mg/dL 02/15/2023 1:33 PM SALES SPECIAL AGENT CNFL Creatinine 0.98 0.74 - 1.35 mg/dL 02/15/2023 1:33 PM SALES SPECIAL AGENT CNFL Estimated GFR (eGFR) 78 >=60 mL/min/BS A 02/15/2023 1:33 PM SALES SPECIAL AGENT CNFL Comment: Estimated GFR calculated using the 2020 CKD_EPI creatinine equation. Calcium, Total, P 9.2 8.8 - 10.2 mg/dL 02/15/2023 1:33 PM SALES SPECIAL AGENT CNFL Glucose, P CANCELED mg/dL 02/15/2023 1:12 PM SALES SPECIAL AGENT CNFL Comment: Duplicate test request. Result canceled by the ancillary. Protein, Total, P 6.6 6.3 - 7.9 g/dL 02/15/2023 1:33 PM SALES SPECIAL AGENT CNFL Albumin, P 4.1 3.5 - 5.0 g/dL 02/15/2023 1:33 PM SALES SPECIAL AGENT CNFL Aspartate Aminotransferase (AST), P 19 8 - 48 U/L 02/15/2023 1:33 PM SALES SPECIAL AGENT CNFL Alkaline Phosphatase, P 120 40 - 129 U/L 02/15/2023 1:33 PM SALES SPECIAL AGENT CNFL Alanine Aminotransferase (ALT), P 13 7 - 55 U/L 02/15/2023 1:33 PM SALES SPECIAL AGENT CNFL Bilirubin, Total, P 0.4 0.0 - 1.2 mg/dL 02/15/2023 1:33 PM SALES SPECIAL AGENT CNFL Blood (Blood, Venous) 02/15/2023 1:10 PM SALES SPECIAL AGENT 02/15/2023 1:12 PM SALES SPECIAL AGENT Carson Fletcher M.D. LAB BLOOD ADD-ON [facility] [address] [place] [address], [facility] CNFL [facility] in [address] [address] * (ABNORMAL) CBC with Differential, Blood (02/15/2023 1:10 PM SALES SPECIAL AGENT) Hemoglobin 12.9(L) 13.2 - 16.6 g/dL 02/15/2023 2:13 PM SALES SPECIAL AGENT CNFL Hematocrit 36.2(L) 38.3 - 48.6 % 02/15/2023 2:13 PM SALES SPECIAL AGENT CNFL Erythrocytes 2.98(L) 4.35 - 5.65 x10(12)/L 02/15/2023 2:13 PM SALES SPECIAL AGENT CNFL MCV 121.5(H) 78.2 - 97.9 fL 02/15/2023 2:13 PM SALES SPECIAL AGENT CNFL RBC Distrib Width 14.3 11.8 - 14.5 % 02/15/2023 2:13 PM SALES SPECIAL AGENT CNFL Platelet Count 142 135 - 317 x10(9)/L 02/15/2023 2:13 PM SALES SPECIAL AGENT CNFL Leukocytes 6.6 3.4 - 9.6 x10(9)/L 02/15/2023 2:13 PM SALES SPECIAL AGENT CNFL Neutrophils 5.52 1.56 - 6.45 x10(9)/L 02/15/2023 2:13 PM SALES SPECIAL AGENT CNFL Lymphocytes 0.38(L) 0.95 - 3.07 x10(9)/L 02/15/2023 2:13 PM SALES SPECIAL AGENT CNFL Monocytes 0.65 0.26 - 0.81 x10(9)/L 02/15/2023 2:13 PM SALES SPECIAL AGENT CNFL Eosinophils 0.06 0.03 - 0.48 x10(9)/L 02/15/2023 2:13 PM SALES SPECIAL AGENT CNFL Basophils <0.04 0.01 - 0.08 x10(9)/L 02/15/2023 2:13 PM SALES SPECIAL AGENT CNFL Blood (Blood, Venous) 02/15/2023 1:10 PM SALES SPECIAL AGENT 02/15/2023 1:12 PM SALES SPECIAL AGENT Carson Fletcher M.D. LAB BLOOD ADD-ON [facility] [address] [place] [address], [facility] CNFL [facility] in [address] [address] * (ABNORMAL) ANCA (Antineutrophil Cytoplasmic Antibodies) Vasculitis Panel (02/15/2023 1:10 PM SALES SPECIAL AGENT) Myeloperoxidase Ab, S <0.2 <0.4 (Negative ) U 02/16/2023 4:29 PM SALES SPECIAL AGENT SDSC Proteinase 3 Ab (PR3), S 3.0(H) <0.4 (Negative ) U 02/16/2023 4:29 PM SALES SPECIAL AGENT SDS Comment:Interpretation: Posi tive (>=1.0) Blood (Blood, Venous) 02/15/2023 1:10 PM SALES SPECIAL AGENT 02/16/2023 7:10 AM SALES SPECIAL AGENT Carson Fletcher M.D. LAB BLOOD ADD-ON [facility] [address] [place] [address] [facility] [address] 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
--- OUTSIDE RECORDS SUMMARY | 2023-04-25 19:01 | XMS_ITS | Encounter Summary ---
Author Name Unknown Organization [facility] Address [address] [place] [address] Care Team Providers Care Food Service Team Member Name Role Phone Elsewhere, Pcp Primary Care Provider Unavailabl e Encounter Details Date Type Department Care Team (Late st Contact Info) Description 02/15/2023 Clinical Communication Division of Pulmonary Medicine in [place], [place] [address] [place] [phone] Carson Fletcher M.D. [address] [place] [phone] Social History Tobacco Use Types Packs/Day Years [...] often do you attend chur ch or taoist services? Patient declined 02/03/2022 Do you belong to any clubs o r organizations such as jain groups, unions, fraternal or athletic groups, or [...] Answer Date Recorded PHQ-2 Score 2 09/24/2021 [facility] - Occupational Stress [...] st Contact Info) Description 04/26/2023 3:15 PM ACOUSTICS TEACHER Appointment Department of Radiation Oncology in [place], [place] [address] [place] [phone] Gurwinder Tejeda M.D. [address] [place] [phone] 05/03/2023 1:00 PM ACOUSTICS TEACHER Appointment Department of Laboratory Medicine in [address] [place] [phone] Carson Fletcher M.D. [address] [place] [phone] 05/03/2023 1:10 PM ACOUSTICS TEACHER Appointment Department of Laboratory Medicine in [address] [phone] Carson Fletcher M.D. [address] [place] [phone] 2023 2:30 PM ACOUSTICS TEACHER Virtual Visit Division of Pulmonary Medicine in [place], [place] [address] [place] [phone] Carson Fletcher M.D. [address] [place] [phone] 07/05/2023 11:20 AM CDT Lab Department of Laboratory Medicine and Pathology, [facility] in [place], [place] [address] [place] [phone] Kallie Rosales APRN, C.N.P., M.S. [address] [place] [phone] 07/05/2023 12:45 PM CDT Appointment Department of Radiology, [facility] in [place], [place] [address] [place] [phone] Kallie Rosales APRN, C.N.P., M.S. [address] [place] [phone] 07/06/2023 11:30 AM CDT Office Visit Department of Urology in [place], [place] [address] [place] [phone] Sushant Vicente M.D. [address] [place] [phone] documented as of this encounter Visit Diagnoses Not on filedocumented in this encounter Additional Health Concerns Infection Onset Date Last Indicated Resolved Time Protective Environment 07/31/2022 07/31/2022 Assessment Noted Time PHQ-9 Depression Total Score: 2 10/13/19 14 10:45 AM CDT documented as of this encounter Care Teams Food Service Team Member Relationship Specialty Start Date End Date Elsewhere, Pcp PCP - General Family Medicine 12/29/19 documented as of this encounter
--- OUTSIDE RECORDS SUMMARY | 2023-04-25 19:01 | XMS_ITS | Encounter Summary ---
Author Name Unknown Organization [facility] Address [address] [place] [id number] Care Team Providers Care Marble Mechanic Helper Name Role Phone Elsewhere, Pcp Primary Care Provider Unavailabl e Reason for Visit * Appointment Request (Routine) - Closed Specialty Diagnoses / Procedures Referred By Brittni t Referred To Contact Urology Diagnoses Primary Malignant Neoplasm Of Prostate (HCC) Referral ID Status Reason Start Date Expiration Date Visits Re quested Visits Authorized [id number] Closed 02/09/2023 02/09/2024 1 1 Encounter Details Date Type Department Care Team (Late st Contact Info) Description 02/18/2023 10:00 AM MILK DRYING MACHINE OPERATOR Office Visit Department of Urology in [place], [place] [address] [place] [phone] Sushant Vicente M.D. [address] [place] [phone] Primary Malignant Neoplasm Of Prostate (HCC) (Primary Dx) Social History Tobacco Use [...] How often do you attend chur or orthodoxy services? Patient declined 02/03/2022 Do you belong [...] Answer Date Recorded PHQ-2 Score 2 09/24/2021 [facility] [place] of Occupat ional Health - Occupational Stress [...] AM CDT documented as of this encounter Progress Notes * Sushant Vicente M.D. - 02/18/2023 10:00 AM CST SUBJECTIVE CHIEF COMPLAINT/REASON FOR VISIT Advanced prostate cancer follow up. HISTORY OF PRESENT ILLNESS Mr. Lashell Gates is a 77 y.o. pleasant gentleman, who presents today for repeat evaluation foradvanced prostate cancer. His oncologic history is as follows: 1. July 01, 2004: underwent robotic-assisted radical prostatectomy by Dr. Duque. Pathology revealed Chica 3 + 3, pT2c, N0, MX, R0 adenocarcinoma of the prostate. 2. November 29, 2013: completed salvage external beam radiation therapy with Dr. Cole at [place], [place] for a biochemical recurrence. 3. July 25, 2014: PSA hollie to 3.2. 4. August 15, 2014: Initiated androgen deprivation therapy with Lupron. 5. November 09, 2014: PSA became undetectable, and went on a Lupron holiday. 6. PSA remained undetectable until December 24, 2015, when PSA was 0.13. 7. PSA continued to rise, and, August 10, 2016, was noted to be 1.7. Lupron therapy (3 month) was restarted. 8. November 2016: PSA became undetectable. At that time, he again went on a Lupron holiday. 9. August 06, 2017: PSA 3.0. Received a 3 month Lupron injection. 10. November 16, 2017: PSA <0.10. 11. March 08, 2018: PSA 0.58. 12. August 03, 2018: PSA 15.6 ng/ml. 13. August 19, 2018: Received a 3 month Lupron injection. 14. November 22, 2018: PSA 35.5 ng/ml. Choline PET scan revealed choline avid lymph nodes in the retroperitoneum all the way up to the level of the kidneys. In addition, patient had mediastinal and hilar lymph nodes that appeared to be choline avid and possibly consistent with metastatic prostate cancer.Dr. Vicente advised the patient to undergo abdominal MRI to rule our any evidence of liver metastases. 15. December 13, 2018: MRI was negative for any evidence of liver metastases. Dr. Vicente recommendedhe continue on Lupron therapy every 3 months with the addition of Zytiga with prednisone. 16. March 09, 2019: PSA 2.7 ng/ml. Imaging demonstrated a positive response to treatment therapy. He was recommended to continue on androgen deprivation therapy and Zytiga with prednisone as prescribed. 17. May 23, 2019: PSA 2.1 ng/ml. 18. August 09, 2019: PSA 1.9 ng/ml. C11 PET choline scan does reveal resolution or improvement in abdominal pelvic lymph nodes. Patient continues to have stable low level choline avid lymph nodes withinthe chest. 19. November 09, 2019: PSA 1.9 ng/ml. Imaging remain stable with no evidence of progression. Patient was recommended to continue on androgen deprivation therapy as well as Zytiga and prednisone. 20. March 06, 2020: PSA 5.9 ng/mL. C11 PET choline scan does reveal interval compression fracture of L5 vertebral body with increased choline uptake, which could result represent tumor involvementor possibly insufficiency fracture with just inflammation. There is also mildly choline avid mediastinal and hilar nodes which are more likely reactive. Also seen is stable appearance of left external iliac and aortocaval nodes which are only mildly choline avid. 21. June 05, 2020: PSA 4.9 ng/mL. C-11 choline PET scan does not reveal clear site of prostate cancer progression or recurrence. Patient has benign L5 compression fracture. Recommend the patient continue with 3 month Lupron injections and Zytiga. 22. August 29, 2020: PSA 8.5 ng/ml. Imaging demonstrated no convincing evidence for metabolically active recurrent/residual disease. Stable symmetric hilar mediastinal uptake. 23. September 20, 2020: Patient underwent PSMA PET scan. Innumerable intensely PSMA avid bone lesions andretroperitoneal lymph nodes suggestive of metastatic disease. Patient was recommended to proceed with chemohormonal therapy. September 2020 Guardant 360 noted + KAYE, candidate for Olaparib. TMB of >18,noting a candidate for pembrolizumab 24. December 19, 2020: PSA 19.8 ng/mL. PSA 11/29/20 locally was 28.3 ng/mL. C11 PET choline scan suggested numerous PSMA tracer avid skeletal metastases on previous imaging do not show pooling obtained today. None of lymph node metastases previously demonstrated on PSMA have choline tracer uptake today. There were several new tiny pulmonary nodules too small for characterization. At least two of previously seen PSMA positive skeletal metastases show only faint choline uptake previously are identified today. Patient has received three cycles of carboplatin plus docetaxel chemotherapy through Dr. Mott at [place] [facility]. Notably, patient does have high tumor mutation burden and make him a candidate for pembrolizumab as well as KAYE mutation which makes him candidate for Olaparib. 26. January 2021: Completed a total of 6 cycles of carboplatin plus docetaxel under direction of Dr. Mott. 27. February 21, 2021: PSA 8.8 ng/mL. C-11 PET choline scan continued to note decrease in choline avid osseous lesions. Decrease in his prior right mid lobe pulmonary nodule to 3 mm from prior 6 mm and along the major fissure measuring 6 mm from prior 1 cm. No new choline avid lesions. Recommended to continue on androgen deprivation therapy and revisit with Dr. Mott to discuss treatment with Olaparib or Keytruda secondary to his Guardant 360 testing results. 28. February 28, 2021: initiated Olaparib 300 mg BID 29. June 25, 2021: PSA 10.5 ng/ml. Alk phosphatase and liver enzymes were within normal limits. Imaging was unchanged with mild uptake in the right sternum and midthoracic vertebral body. No new choline evidence of metastatic disease. Dr. Vicente recommended he continue on androgen deprivation therapyand Olaparib. When he returns, he will undergo a PSMA scan to determine if he could potentially be treated with Lutetium 177. 30. September 23, 2021: PSA 9.6 ng/mL. His PSMA scan demonstrated multiple PSMA avid osseous metastasis with a PSMA expression score of 2. He continues on Olaparib. Of note, shortly after starting Olapariblast February, he developed multiple side effects including headaches, nausea, back pain, lightheadedness. He decreased his dose to 1 tablet in the morning and two in the evening instead of 2 tabletstwice daily. Recommended to discontinue Olaparib, decrease prednisone to 5 mg daily, and move forward with treatment with Pluvicto. 31. November 11, 2021: PSA 32.8 ng/ml. Received cycle #1 of treatment with 177 PSMA Lutetium. 32. December 22, 2021: PSA 29.3 ng/ml. The patient continues on Lupron injections every 3 months. Received cycle #2 of treatment with 177 PSMA Lutetium. He noted increased fatigue with his treatment. 33. February 02, 2022: PSA declined to 17.2 ng/mL. CBC and CMP were stable to proceed with cycle #3of treatment with 177 PSMA Lutetium. PSMA scan demonstrated decreased uptake within the several osseous and john metastasis. No new lesions. Specifically T7 vertebral body as SUV max now 5.5 from prior 17.5. His PSMA expressions score is 2. 34. March 17, 2022: PSA 10.3 ng/mL. Received cycle #4 of treatment with 177 PSMA Lutetium. 35. April 27, 2022: PSA 5.7 ng/ml. Presents today prior to cycle #5 of treatment with 177 PSMA Lutetium. Continues on hormone therapy every 3 months. He does note decreased appetite and taste. Has significant fatigue. 36. June 09, 2022: PSA 3.3 ng per mL. Hemoglobin was 12.9, platelet count 208, WBC count 9.8. CMP panel was normal. Patient now presents for cycle #6 of treatment with 177 PSMA Lutetium. Patient is active with no restrictions ECOG performance score 0. Received a 3 month leuprolide injection. 37. August 04, 2022: PSA increased to 6.5 ng/mL from prior 3.3. C-11 PET choline scan demonstrated a few new choline avid osseous metastasis, specifically in the midthoracic vertebral body, mid cervicalvertebral body, low right thoracic pedicle, posterior elements of the left 3rd thoracolumbar vertebral body, and right iliac bone. There was also uptake within the hilar mediastinal nodes which may be reactive/granulomatosis, but ultimately indeterminate. Recommended to continue on androgen deprivation therapy and restart Olaparib through Dr. Mott. 38. September 08, 2022: PSA 15.5 ng/ml locally 39. October 06, 2022: PSA 10 ng/ml locally 40. November 05, 2022: PSA 9.8 ng/ml. C11 PET choline scan demonstrated mild progression of osseous metastases. Mediastinal lymph nodes demonstrate persistent avidity, indeterminate for reactive inflammation versus metastases. The patient now returns following repeat evaluation to discuss results. He continues on androgen deprivation therapy, Olaparib, and Zytiga with prednisone. His next 3 month Lupron injection is due after 12/09/22. 41. January 22, 2023: Patient underwent local PSMA PET. Revealed multifocal metastatic lesions in the bone and lymph nodes. 41. Patient received palliative XRT to the sternum and mid thoracic spine by Dr. Tejeda in Mid January of 2023. 41. February 18, 2023: PSA was 21.2 ng/mL. LABORATORY Lab Results Component Value Date/Time PSA 21.2 (H) 02/15/2023 01:10 PM PSA 9.8 (H) 11/05/2022 11:38 AM Lab Results Component Value Date/Time CREATININE 0.98 02/15/2023 01:10 PM ALKPHOS 120 02/15/2023 01:10 PM AST 19 02/15/2023 01:10 PM AST 32 12/31/2016 09:06 AM ALT 13 02/15/2023 01:10 PM ALT 14 12/22/2022 12:00 PM BILITOT 0.4 02/15/2023 01:10 PM BILIDIR <0.2 01/14/2023 10:40 AM DIAGNOSTICS EXAM: INTERPRETATION OF OUTSIDE NM PET SCAN dated 01/22/2023. TECHNIQUE: Outside PET scan dated 01/22/2023 from vertex to proximal thighs following intravenous injection of F-18 Pylarify with low dose, unenhanced, free breathing, nondiagnostic quality CT imagesobtained for anatomic co-registration and attenuation correction purposes only. COMPARISON: Gallium-68 gozetotide PET exam dated 04/27/2022. Correlation is [...] body. Small fat-containing periumbilical and inguinal hernias. Coronaryartery and other vascular calcifications. Prostatectomy. Colonic diverticula. IMPRESSION: Intensely radiotracer avid metastases as detailed in the findings. ASSESSMENT / PLAN It was a pleasure to see Mr. Lashell Gates in clinic today. As part of today's evaluation I didreview this patient's overall treatment history and treatment plan. As part of today's evaluation patient underwent local repeat laboratory testing and imaging. PSA today is 21.2 ng/mL. Most recent PSMA PET scan from earlier this month reveals disease progression. Overall I do believe the patient is progressing while on hormone therapy plus Olaparib plus Zytiga. At this point I do believe that the patient should pursue cytotoxic chemotherapy either in the formof Jevtana plus carboplatin and or repeat treatment with Taxotere plus carboplatin. The patient hasbeen somewhat reluctant to move forward with therapy since he is fearful with regards to side effects of treatment as well as his overall status with disease. Unfortunately at this point I do not think the patient has other viable options for treatment. I dobelieve that the patient should be reassessed for potential treatment with checkpoint inhibitor immunotherapy since he has had elevated tumor mutation burden in the past. The patient believes that herecently underwent repeat genetic testing with Dr. Mott and therefore we will let Dr. Mott determine if he can move forward with checkpoint inhibitor immunotherapy. If not I do believe the patient will need to initiate treatment with cytotoxic chemotherapy either in the form of Jevtana plus carboplatin him or Taxotere plus carboplatin. As soon as the patient knows his treatment plan he should notify us so that we can schedule follow-up evaluation. Tentatively I have scheduled the patient for 3 month return at this point until we know what the actual treatment plan will be moving forward. Mr. Lashell Gates was instructed to return for follow up appointment in 3 months to perform thefollowing laboratory tests: PSA, Testosterone, Potassium, Alkaline phosphatase, AST, ALT, Total Bilirubin, and Direct Bilirubin. In addition, Mr. Lashell Gates will undergo a Z86-vragohf PET to identify sites of prostate cancer relapse after failed treatment, per medical necessity and per FDA, NCCN and CMS guidelines. All other questions were answered at the time of the visit. He is in agreement with this plan. I personally spent over half of a total 11 minutes in counseling and discussion with the patient and coordination of care as described above. Signed by: Sushant Vicente M.D. 02/18/2023 10:23 AM MILK DRYING MACHINE OPERATOR DRYING MACHINE OPERATOR documented in this encounter Plan of Treatment Upcoming Encounters Date Type Department Care Team (Late st Contact Info) Description 04/26/2023 3:15 PM MILK DRYING MACHINE OPERATOR Appointment Department of Radiation Oncology in [place], [place] [address] [place] [phone] Gurwinder Tejeda M.D. [address] [place] [phone] 05/03/2023 1:00 PM MILK DRYING MACHINE OPERATOR Appointment Department of Laboratory Medicine in [address] [phone] Carson Fletcher M.D. [address] [place] [phone] 05/03/2023 1:10 PM MILK DRYING MACHINE OPERATOR Appointment Department of Laboratory Medicine in [address] [phone] Carson Fletcher M.D. [address] [place] [phone] 2023 2:30 PM MILK DRYING MACHINE OPERATOR Virtual Visit Division of Pulmonary Medicine in [place], [place] [address] [place] [phone] Carson Fletcher M.D. [address] [place] [phone] 07/05/2023 11:20 AM CDT Lab Department of Laboratory Medicine and Pathology, [facility] in [place], [place] [address] [place] [phone] Kallie Rosales APRN, C.N.P., M.S. [address] [place] [phone] 07/05/2023 12:45 PM CDT Appointment Department of Radiology, [facility] in [place], [place] [address] [place] [phone] Kallie Rosales APRN, C.N.P., M.S. [address] [place] [phone] 07/06/2023 11:30 AM CDT Office Visit Department of Urology in [place], [place] [address] [place] [phone] Sushant Vicente M.D. [address] [place] [phone] documented as of this encounter Visit Diagnoses Diagnosis Primary Malignant Neoplasm Of Prostate (HCC)- Primary documented in this encounter Additional Health Concerns Infection Onset Date Last Indicated Resolved Time Protective Environment 07/31/2022 07/31/2022 Assessment Noted Time PHQ-9 Depression Total Score: 2 10/13/19 14 10:45 AM CDT documented as of this encounter Care Teams Marble Mechanic Helper Relationship Specialty Start Date End Date Elsewhere, Pcp PCP - General Family Medicine 12/29/19 documented as of this encounter
--- OUTSIDE RECORDS SUMMARY | 2023-04-25 19:02 | XMS_ITS | Encounter Summary ---
Author Name Unknown Organization [facility] Address [address] [place] [address] Care Team Providers Care Substation Designer Name Role Phone Elsewhere, Pcp Primary Care Provider Unavailabl e Reason for Referral * Radiation Therapy (Routine) - Closed Specialty Diagnoses / Procedures Referred By Contac t Referred To Contact Diagnoses Secondary Malignant Neoplasm Bone (HCC) Procedures Initial Rad Onc Treatment Planning CT Simulation [place] [phone] [facility] Region Referral ID Status Reason Start Date Expiration Date Visits Re quested Visits Authorized [id number] Closed 01/28/2023 01/28/2024 1 1 MS ADJUSTOR Reason for Visit * Radiation Therapy (Routine) - Closed Specialty Diagnoses / Procedures Referred By Contac t Referred To Contact Diagnoses Secondary Malignant Neoplasm Bone (HCC) Procedures Initial Rad Onc Treatment Planning CT Simulation [place] [phone] [facility] Region Referral ID Status Reason Start Date Expiration Date Visits Re quested Visits Authorized [id number] Closed 01/28/2023 01/28/2024 1 1 Encounter Details Date Type Department Care Team (Latest Contact Info) Description 02/01/2023 3:00 PM CLAIMS ADJUSTOR - 02/07/2023 1:09 PM CLAIMS ADJUSTOR Hospital Encounter Department of Radiation Oncology in [address] [phone] Gurwinder Tejeda M.D. [address] [place] [phone] Secondary Malignant Neoplasm Bone (HCC) Social History [...] often do you attend [facility] or restorationist services? Patient declined 02/03/2022 Do you belong to any clubs o r organizations such as lutheran groups, unions, fraternal or athletic groups, or [...] Answer Date Recorded PHQ-2 Score 2 09/24/2021 [facility] - Occupational Stress Questionnaire Answer Date [...] mg x 2, 2 weeks apart at [facility] on 06/10/2022 and 06/24/2022. 0 06/10/2022 [...] 0 11/27/2021 documented as of this encounter Procedure Notes * Margie Gutierrez, RTT - 02/01/2023 3:00 PM CSTAssociated Order(s): Initial Rad Onc Treatment Planning CT Simulation Pre-Procedure Diagnose(s): Secondary Malignant Neoplasm Bone (HCC) Post-Procedure Diagnose(s): Secondary Malignant Neoplasm Bone (HCC) Initial Rad Onc Treatment Planning CT Simulation [...] placed to facilitate marking of isocenter. Area scanned:Chest and Abdomen Contrast used for the simulation procedure: None Patient position:head first supine Custom immobilization: Vac-brianda Motion management: None Bolus: No CT guidance: Following positioning of the patient, a series of slices was obtained to be utilized in treatment planning. CT images were transferred to the Eclipse treatment planning system, after a reference isocenter was determined and marked. Segmentation and treatment planning will take place prior to treatment delivery. Patient set up and imaging was appropriate and completed without incident. Director Case Management use:No MS ADJUSTOR Associated attestation - Gurwinder Tejeda M.D. - 02/07/2023 1:07 PM CLAIMS ADJUSTOR I was available for the entirety of the procedure but only present for image review. Signed by: Gurwinder Tejeda M.D. 02/07/23 1:07 PM CLAIMS ADJUSTOR [facility] [place] documented in this encounter Plan of Treatment Upcoming Encounters Date Type Department Care Team (Late st Contact Info) Description 04/26/2023 3:15 PM CLAIMS ADJUSTOR Appointment Department of Radiation Oncology in [place], [place] [address] [place] [phone] Gurwinder Tejeda M.D. [address] [place] [phone] 05/03/2023 1:00 PM CLAIMS ADJUSTOR Appointment Department of Laboratory Medicine in [address] [phone] Carson Fletcher M.D. [address] [place] [phone] 05/03/2023 1:10 PM CLAIMS ADJUSTOR Appointment Department of Laboratory Medicine in [address] [phone] Carson Fletcher M.D. [address] [place] [phone] 2023 2:30 PM CLAIMS ADJUSTOR Virtual Visit Division of Pulmonary Medicine in [place], [place] [address] [place] [phone] Carson Fletcher M.D. [address] [place] [phone] 07/05/2023 11:20 AM CDT Lab Department of Laboratory Medicine and Pathology, [place], [place] [address] [place] [phone] Kallie Rosales APRN, C.N.P., M.S. [address] [place] [phone] 07/05/2023 12:45 PM CDT Appointment Department of Radiology, [facility], in [place], [place] [address] [place] [phone] Kallie Rosales APRN, C.N.P., M.S. [address] [place] [phone] 07/06/2023 11:30 AM CDT Office Visit Department of Urology in [place], [place] [address] [place] [phone] Sushant Vicente M.D. [address] [place] [phone] documented as of this encounter Procedures Procedure Name Priority Date/Time Associated Diagnosis Comments INITIAL RAD ONC TREATMENT PLANNING CT SIMULATION Routine 02/01/2023 3:00 PM CLAIMS ADJUSTOR Secondary Malignant Neoplasm Bone (HCC) documented in this encounter Results * Initial Rad Onc Treatment Planning CT Simulation (02/01/2023 3:00 PM CLAIMS ADJUSTOR) Narrative STEVIE QUIÑONES - 02/01/2023 3:00 PM CLAIMS ADJUSTOR Margie Gutierrez, RTT ? 02/01/2023 ??3:48 PM Initial Rad Onc Treatment Planning CT Simulation Performed by: Gurwidner Tejeda M.D. Authorized by: Gurwinder Tejeda M.D. ?? Gurwinder Tejeda M.D. RADIATION ONCOLOGY ORDERABLES STEVIE QUIÑONES na documented in this encounter Visit Diagnoses Diagnosis Secondary Malignant Neoplasm Bone (HCC) documented in this encounter Additional Health Concerns Infection Onset Date Last Indicated Resolved Time Protective Environment 07/31/2022 07/31/2022 Assessment Noted Time PHQ-9 Depression Total Score: 2 10/13/19 14 10:45 AM CDT documented as of this encounter Care Teams Substation Designer Relationship Specialty Start Date End Date Elsewhere, Pcp PCP - General Family Medicine 12/29/19 documented as of this encounter
--- OUTSIDE RECORDS SUMMARY | 2023-04-25 19:02 | XMS_ITS | Encounter Summary ---
Author Name Unknown Organization [facility] Address [address] [place] [address] Care Team Providers Care Fence Installer Name Role Phone Elsewhere, Pcp Primary Care Provider Unavailabl e Reason for Referral * Outpatient (Routine) - Closed Specialty Diagnoses / Procedures Referred By Contac t Referred To Contact Radiation Oncology Gurwinder Tejeda M.D. [address] [place] [address] [facility] Region Referral ID Status Reason Start Date Expiration Date Visits Re quested Visits Authorized [id number] Closed 02/05/2023 02/04/2026 1 1 WORKER FOREMAN * Radiation Therapy (Routine) - Authorized Specialty Diagnoses / Procedures Referred By Contac t Referred To Contact Diagnoses Secondary Malignant Neoplasm Bone (HCC) Procedures Management Visit Gurwinder Tejeda M.D. [address] [place] [address] [facility] Region Referral ID Status Reason Start Date Expiration Date V isits Requested Visits Authorized [id number] Authorized 01/28/2023 01/28/2024 10 10 WORKER FOREMAN Reason for Visit * Radiation Therapy (Routine) - Authorized Specialty Diagnoses / Procedures Referred By Contac t Referred To Contact Diagnoses Secondary Malignant Neoplasm Bone (HCC) Procedures Management Visit Gurwinder Tejeda M.D. [address] [place] [address] [facility] Region Referral ID Status Reason Start Date Expiration Date V isits Requested Visits Authorized [id number] Authorized 01/28/2023 01/28/2024 10 10 Encounter Details Date Type Department Care Team (Latest Contact Info) Description 02/05/2023 3:28 PM IRONWORKER FOREMAN - 02/05/2023 4:58 PM IRONWORKER FOREMAN Hospital Encounter Department of Radiation Oncology in [place], [place] [address] [place] [phone] Gurwinder Tejeda M.D. [address] [place] [phone] Secondary Malignant Neoplasm Bone (HCC) Social History [...] week 02/03/2022 How often do you attend [facility] or [facility] services? Patient declined 02/03/2022 Do you belong to any clubs o r organizations such as presybeterian groups, unions, fraternal or athletic groups, or [...] Answer Date Recorded PHQ-2 Score 2 09/24/2021 [facility] - Occupational Stress Questionnaire Answer Date [...] Pressure - - Pulse - - Temperature 35.8 ??C (96.4 ??F) 02/05/2023 4:05 PM CS T Respiratory Rate - - Oxygen Saturation - - Inhaled Oxygen Concentration - - Weight 81.3 kg (179 lb 3.7 oz) 02/05/2023 4:05 P M IRONWORKER FOREMAN Height - - Body Mass Index 27.61 12/22/2022 1:50 PM CDT documented in this [...] 2, [address] [facility] on 06/10/2022 and 06/24/2022. 0 06/10/2022 [...] Progress Notes * Gurwinder Tejeda M.D. - 02/05/2023 4:30 PM CST SUBJECTIVE REASON FOR VISIT Evaluation for side effects while receiving radiation treatment for 1. Secondary Malignant Neoplasm Bone (HCC) SUPERVISED BY: Gurwinder Tejeda M.D. ([id number]) HISTORY OF PRESENT ILLNESS Mr. Lashell Gates is a 77 y.o. 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 Patient at a single fraction of radiation therapy to sternum and T3-T8 today. Treatment Course: 2xMultiSite Plan ID Fractions Dose / Fraction (cGy) Dose Treated (cGy) Dose Planned (cGy) First Treatment Last Treatment Elapsed Days [id number] 800 800 02/05/2023 02/05/2023 0 Course Summary 02/05/2023 02/05/2023 0 Oncology History Primary Malignant Neoplasm Of Prostate (HCC) 02/21/2004 Other PSA 4.6 ng/mL 07/01/2004 Surgery and Procedures Underwent robotic-assisted radical prostatectomy by Dr. Duque. Pathology revealed [place] 3 + 3, pT2c, N0, MX, R0 [...] in [address] Cole at [place], [place] for a biochemical recurrence. 12/26/2013 Other [...] PSA 3.3 ng/mL 08/03/2022: PSA 6.5 ng/mL 11/05/2022: PSA 9.8 ng/mL 01/14/2023: PSA 19.20 ng/mL 01/19/2023: PSA 22.10 ng/mL 07/2022 - Biological/Targeted/Hormone Therapy Re-started on Olaparib and Zytiga with prednisone. Continued with androgen deprivation therapy. 11/05/2022 Critical Imaging Choline PET-CT IMPRESSION: 1. Mild progression of osseous metastatic disease. 2. Mediastinal lymph nodes demonstrate persistent avidity, indeterminate for reactive inflammation versus metastases. OSSEOUS DISEASE: Mildly increased uptake in several osseous lesions, including lower sternum with SUV max 4.5 (image 121), T11 spinous process lesion with SUV max 2.7 (image 162), and posterior left iliac bone lesion with SUV max 3.1 (image 25), C3 vertebral body (SUV max 3.3, previously 2.2) (image 63), T4 vertebral body (SUV max 4.4, previously 3) (image 98), and posterior right iliac bone (SUVmax 3.6, previously 1.9) (image 220). Similar choline uptake of T7 right pedicle (SUV max 3.8, previously 3.5) (image 121). 01/22/2023 Critical Imaging PSMA PET-CT scan demonstrated multiple scattered radiotracer positive osseous lesions including sales representative advertising examples involving the T2 vertebral body, SUV max 26.7, T4 vertebral body, SUV max 20.6,and right posterior iliac bone, SUV max 26.9. The patient was seen and examined today with Dr. Tejeda. The patient reports that his pain to ribs, mid back and sternum are a 6 out of 10. He feels that his pain has lessened overall. He is taking 1 Hydromorphone at bedtime. He takes 2 Tylenol between 6-7am and 2 again between 1-2 pm. He manages diarrhea with Imodium as needed. He denies any new symptoms, new areas of pain or new concerns. PATIENT REPORTED SYMPTOM SCREEN FATIGUE (Scale: 0 = no fatigue; 10 = worst fatigue you can imagine): 7 PAIN (Scale: 0 = no pain; 10 = worst pain you can imagine): 6 OVERALL QUALITY OF LIFE (Scale: 0 = as bad as can be; 10 = as good as can be): 7 OBJECTIVE Temp (!) 35.8 ??C (Temporal) Wt 81.3 kg BMI 27.61 kg/m?? PHYSICAL EXAM General: Alert and oriented in no apparent distress. ASSESSMENT / PLAN #1 pT2c, N0, MX, RO, [place] 3+3, PSA 4.6 adenocarcinoma of the prostate [...] and T3-T8 administered on February 05, 2023 The patient tolerated radiation treatment well overall. We expect further pain improvement to be noted 2 weeks from today. Patient can take 2 extra strength tylenol every 6 hours as needed. He can take hydromorphone as prescribed for further pain control as well. Labs and PET CT choline are scheduled for February 15, 2023 on our [facility]. Dr. Vicente will see patient in follow up on 2022. Dr. Tejeda will call patient around February 17, 2023 to reassess pain. He will contactus with any questions or concerns. Patient stated a full understanding to the plan of care discussed today. Signed by: Mariajose Wick R.N. 02/05/2023 4:19 PM IRONWORKER FOREMAN I saw and evaluated the patient and participated in the savage portions of the service. I reviewed thedocumentation of Mariajose Wick R.N. and agree with the findings and plan. The patient appears well on exam. He is here today with his Diana. He notes that his pain was already improving some. He is on prednisone 10 mg daily with abiraterone. Hopefully this will ameliorate any potential pain flare. He will contact us if he has a pain flare that is not responsive to hydromorphone. He just hada PSMA PET/CT scan on January 22, 2023 and is scheduled for a choline PET/CT scan on February 15, 2023 with a visit with Dr. Vicente on February 18, 2023. I will contact Dr. Vicente's team to see if they still want the choline PET scan. I will call the patient to check on his progress on February 17, 2023. I explained that I did not treat the small areas of disease in his ribs because I could not elicit any point tenderness in those areas when I examined him. These areas might become more noticeable as the pain in his sternum and thoracic spine improved from treatment. We will consider further single fraction treatment to any other new areas of pain after I call him. The patient knows he can contact me at any time in the interim with questions or concerns. He and his verbalized satisfaction with this plan. Signed by: Gurwinder Tejeda M.D. 02/05/2023 4:36 PM IRONWORKER FOREMAN [facility] [address] [place] [address] WORKER FOREMAN documented in this encounter Miscellaneous Notes * Addendum Note - Gurwinder Tejeda M.D. - 02/05/2023 4:30 PM CSTEncounter addended by: Gurwinder Tejeda M.D. on: 02/05/2023 4:59 PM Actions taken: Letter saved WORKER FOREMAN * Addendum Note - Lorin Ward C.N.ATaovn - 02/05/2023 4:30 PM CSTEncounter addended by: Lorin Ward C.N.ATavon on: 02/08/2023 7:10 AM Actions taken: Letter saved WORKER FOREMAN documented in this encounter Plan of Treatment Upcoming Encounters Date Type Department Care Team (Late st Contact Info) Description 04/26/2023 3:15 PM IRONWORKER FOREMAN Appointment Department of Radiation Oncology in [place], [place] [address] [place] [phone] Gurwinder Tejeda M.D. [address] [place] [phone] 05/03/2023 1:00 PM IRONWORKER FOREMAN Appointment Department of Laboratory Medicine in [address] [phone] Carson Fletcher M.D. [address] [place] [phone] 05/03/2023 1:10 PM IRONWORKER FOREMAN Appointment Department of Laboratory Medicine in [address] [phone] Carson Fletcher M.D. [address] [place] [phone] 2023 2:30 PM IRONWORKER FOREMAN Virtual Visit Division of Pulmonary Medicine in [place], [place] [address] [place] [phone] Carson Fletcher M.D. [address] [place] [phone] 07/05/2023 11:20 AM CDT Lab Department of Laboratory Medicine and Pathology, [facility], in [place], [place] [address] [place] [phone] Kallie Rosales APRN, C.N.P., M.S. [address] [place] [phone] 07/05/2023 12:45 PM CDT Appointment Department of Radiology, [facility], in [place], [place] [address] [place] [address] Kallie Rosales APRN, C.N.P., M.S. [address] [place] [phone] 07/06/2023 11:30 AM CDT Office Visit Department of Urology in [place], [place] [address] [place] [address] Sushant Vicente M.D. [address] [place] [phone] Scheduled Orders Name Type Priority Associated Diagnoses Orde r Schedule Management Visit Radiation Oncology Routine Secondary Malignant Neoplasm Bone (HCC) Once for 1 Occurrences starting 02/05/2023 until 02/05/2023 Scheduled Referrals Name Type Priority Associated Diagnoses Orde r Schedule Radiation Oncology office visit (clinic) Outpatient Referral Routine Expected: 02/17/2023 (Approximate), Expires: 02/06/2024 documented as of this encounter Visit Diagnoses Diagnosis Secondary Malignant Neoplasm Bone (HCC) documented in this encounter Additional Health Concerns Infection Onset Date Last Indicated Resolved Time Protective Environment 07/31/2022 07/31/2022 Assessment Noted Time PHQ-9 Depression Total Score: 2 10/13/19 14 10:45 AM CDT documented as of this encounter Care Teams Fence Installer Relationship Specialty Start Date End Date Elsewhere, Pcp PCP - General Family Medicine 12/29/19 documented as of this encounter
--- OUTSIDE RECORDS SUMMARY | 2023-04-25 19:02 | XMS_ITS | Encounter Summary ---
Author Name Unknown Organization [facility] Address [address] [place] [address] Care Team Providers Care Supervisor Pipeline Maintenance Name Role Phone Elsewhere, Pcp Primary Care Provider Unavailabl e Encounter Details Date Type Department Care Team (Latest Contact Info) Description 02/04/2023 8:30 AM DEDICATED DRIVER Clinical Communication Virtual Review in [place], [place] 200 [place] [address] Social History Tobacco Use Types Packs/Day Years [...] How often do you attend chur or gnosticist services? Patient declined 02/03/2022 Do you belong [...] Answer Date Recorded PHQ-2 Score 2 09/24/2021 [facility] - Occupational [...] place to sleep or slept in a skilled nursing (including now)? No 02/03/2022 Nutrition Answer Date [...] st Contact Info) Description 04/26/2023 3:15 PM DEDICATED DRIVER Appointment Department of Radiation Oncology in [place], [place] [address] [place] [phone] Gurwinder Tejeda M.D. [address] [place] [address] 05/03/2023 1:00 PM DEDICATED DRIVER Appointment Department of Laboratory Medicine in [address] [phone] Carson Fletcher M.D. [address] [place] [phone] 05/03/2023 1:10 PM DEDICATED DRIVER Appointment Department of Laboratory Medicine in [address] [phone] Carson Fletcher M.D. [address] [place] [phone] 2023 2:30 PM DEDICATED DRIVER Virtual Visit Division of Pulmonary Medicine in [place], [place] [address] [place] [address] Carson Fletcher M.D. [address] [place] [phone] 07/05/2023 11:20 AM CDT Lab Department of Laboratory Medicine and Pathology, [facility] in [place], [place] [address] [place] [address] Kallie Rosales APRN, C.N.P., M.S. [address] [place] [phone] 07/05/2023 12:45 PM CDT Appointment Department of Radiology, [facility], in [place], [place] [address] [place] [address] Kallie Rosales APRN, C.N.P., M.S. [address] [place] [phone] 07/06/2023 11:30 AM CDT Office Visit Department of Urology in [place], [place] [address] [place] [address] Sushant Vicente M.D. [address] [place] [phone] documented as of this encounter Visit Diagnoses Not on filedocumented in this encounter Additional Health Concerns Infection Onset Date Last Indicated Resolved Time Protective Environment 07/31/2022 07/31/2022 Assessment Noted Time PHQ-9 Depression Total Score: 2 10/13/19 14 10:45 AM CDT documented as of this encounter Care Teams Supervisor Pipeline Maintenance Relationship Specialty Start Date End Date Elsewhere, Pcp PCP - General Family Medicine 12/29/19 documented as of this encounter
--- OUTSIDE RECORDS SUMMARY | 2023-04-25 19:02 | XMS_ITS | Encounter Summary ---
Author Name Unknown Organization [facility] Address [address] [place] [address] Care Team Providers Care Flexboard Operator Name Role Phone Elsewhere, Pcp Primary Care Provider Unavailabl e Encounter Details Date Type Department Care Team (Latest Contact Info) Description 02/05/2023 3:01 PM SIGN PAINTER - 02/05/2023 3:27 PM [facility] Hospital Encounter Department of Radiation Oncology in [place], [place] [address] [place] [phone] Gurwinder Tejeda M.D. [address] [place] [address] Discharge Disposition: Home or Self Care Social [...] How often do you attend chur or mandaen services? Patient declined 02/03/2022 Do you belong to any clubs o r organizations such as nondenominational groups, unions, fraternal or athletic groups, or [...] Answer Date Recorded PHQ-2 Score 2 09/24/[facility] Answer [...] place to sleep or slept in a halfway (including now)? No 02/03/2022 Nutrition Answer Date [...] x 2, [address] [facility] on 06/10/2022 and 06/24/2022. 0 06/10/2022 [...] st Contact Info) Description 04/26/2023 3:15 PM SIGN PAINTER Appointment Department of Radiation Oncology in [address] [phone] Gurwinder eTjeda M.D. [address] [place] [phone] 05/03/2023 1:00 PM SIGN PAINTER Appointment Department of Laboratory Medicine in [address] [phone] Carson Fletcher M.D. [address] [place] [phone] 05/03/2023 1:10 PM SIGN PAINTER Appointment Department of Laboratory Medicine in [address] [phone] Carson Fletcher M.D. [address] [place] [phone] 2023 2:30 PM SIGN PAINTER Virtual Visit Division of Pulmonary Medicine in [place], [place] [address] [place] [address] Carson Fletcher M.D. [address] [place] [phone] 07/05/2023 11:20 AM CDT Lab Department of Laboratory Medicine and Pathology, [facility] in [place], [place] [address] [place] [phone] Kallie Rosales APRN, C.N.P., M.S. [address] [place] [phone] 07/05/2023 12:45 PM CDT Appointment Department of Radiology, [facility], in [place], [place] [address] [place] [phone] Kallie Rosales APRN, C.N.P., M.S. [address] [place] [phone] 07/06/2023 11:30 AM CDT Office Visit Department of Urology in [place], [place] [address] [place] [phone] Sushant Vicente M.D. [address] [place] [phone] documented as of this encounter Visit Diagnoses Not on filedocumented in this encounter Additional Health Concerns Infection Onset Date Last Indicated Resolved Time Protective Environment 07/31/2022 07/31/2022 Assessment Noted Time PHQ-9 Depression Total Score: 2 10/13/19 14 10:45 AM CDT documented as of this encounter Care Teams Flexboard Operator Relationship Specialty Start Date End Date Elsewhere, Pcp PCP - General Family Medicine 12/29/19 documented as of this encounter
--- OUTSIDE RECORDS SUMMARY | 2023-04-25 19:02 | XMS_ITS | Encounter Summary ---
Author Name Unknown Organization [facility] Address [address] [place] [address] Care Team Providers Care Warehouse Hand Name Role Phone Elsewhere, Pcp Primary Care Provider Unavailabl e Encounter Details Date Type Department Care Team (Late st Contact Info) Description 01/18/2023 Orders Only Department of Urology in [place], [place] [address] [place] [phone] Zaira Miller, ZUNILDA, C.N.P., M.S.N. [address] [place] [phone] Primary Malignant Neoplasm Of Prostate (HCC) (Primary [...] week 02/03/2022 How often do you attend [facility] or rastafarian services? Patient declined 02/03/2022 Do you belong [...] Answer Date Recorded PHQ-2 Score 2 09/24/2021 [facility] Questionnaire Answer Date [...] place to sleep or slept in a snf (including now)? No 02/03/2022 Nutrition Answer Date [...] st Contact Info) Description 04/26/2023 3:15 PM CUSTOMER SERVICE REP Appointment Department of Radiation Oncology in [place], [place] [address] [place] [address] Gurwinder Tejeda M.D. [address] [place] [address] 05/03/2023 1:00 PM CUSTOMER SERVICE REP Appointment Department of Laboratory Medicine in [address] [phone] Carson Fletcher M.D. [address] [place] [phone] 05/03/2023 1:10 PM CUSTOMER SERVICE REP Appointment Department of Laboratory Medicine in [address] [phone] Carson Fletcher M.D. [address] [place] [phone] 2023 2:30 PM CUSTOMER SERVICE REP Virtual Visit Division of Pulmonary Medicine in [address] [phone] Carson Fletcher M.D. [address] [place] [phone] 07/05/2023 11:20 AM CDT Lab Department of Laboratory Medicine and Pathology, [address] [phone] Kallie Rosales APRN, C.N.P., M.S. [address] [place] [phone] 07/05/2023 12:45 PM CDT Appointment Department of Radiology, [facility] in [place], [place] [address] [place] [phone] Kallie Rosales APRN, C.N.P., M.S. [address] [place] [phone] 07/06/2023 11:30 AM CDT Office Visit Department of Urology in [place], [place] [address] [place] [phone] Sushant Vicente M.D. [address] [place] [phone] documented as of this encounter Visit Diagnoses Diagnosis Primary Malignant Neoplasm Of Prostate (HCC)- Primary Secondary Malignant Neoplasm Bone (HCC) documented in this encounter Additional Health Concerns Infection Onset Date Last Indicated Resolved Time Protective Environment 07/31/2022 07/31/2022 Assessment Noted Time PHQ-9 Depression Total Score: 2 10/13/19 14 10:45 AM CDT documented as of this encounter Care Teams Warehouse Hand Relationship Specialty Start Date End Date Elsewhere, Pcp PCP - General Family Medicine 12/29/19 documented as of this encounter
--- OUTSIDE RECORDS SUMMARY | 2023-04-25 19:02 | XMS_ITS | Encounter Summary ---
Author Name Unknown Organization [facility] Address [address] [place] [address] Care Team Providers Care Motion Picture Equipment Machinist Name Role Phone Elsewhere, Pcp Primary Care Provider Unavailabl e Encounter Details Date Type Department Care Team (Latest Contact Info) Description 02/09/2023 3:25 PM NAVAL GUNFIRE SPOTTER Ancillary Procedure Department of Radiology in [place], [place] [address] [place] [phone] Kallie Rosales, ZUNILDA, C.N.P., M.S. [address] [place] [phone] Primary Malignant Neoplasm Of Prostate (HCC) Social [...] any clubs o r organizations such as confucianist groups, unions, fraternal or athletic groups, or [...] Answer Date Recorded PHQ-2 Score 2 09/24/2021 [facility] Answer Date [...] place to sleep or slept in a retirement (including now)? No 02/03/2022 Nutrition Answer Date [...] st Contact Info) Description 04/26/2023 3:15 PM NAVAL GUNFIRE SPOTTER Appointment Department of Radiation Oncology in [place], [place] [address] [place] [address] Gurwinder Tejeda M.D. [address] [place] [address] 05/03/2023 1:00 PM NAVAL GUNFIRE SPOTTER Appointment Department of Laboratory Medicine in [address] [phone] Carson Fletcher M.D. [address] [place] [phone] 05/03/2023 1:10 PM NAVAL GUNFIRE SPOTTER Appointment Department of Laboratory Medicine in [address] [phone] Carson Fletcher M.D. [address] [place] [phone] 2023 2:30 PM NAVAL GUNFIRE SPOTTER Virtual Visit Division of Pulmonary Medicine in [address] [phone] Carson Fletcher M.D. [address] [place] [phone] 07/05/2023 11:20 AM CDT Lab Department of Laboratory Medicine and Pathology, [facility] in [place], [place] [address] [place] [phone] Kallie Rosales APRN, C.N.P., M.S. [address] [place] [phone] 07/05/2023 12:45 PM CDT Appointment Department of Radiology, [facility], in [place], [place] [address] [place] [phone] Kallie Rosales APRN, C.N.P., M.S. [address] [place] [phone] 07/06/2023 11:30 AM CDT Office Visit Department of Urology in [place], [place] [address] [place] [phone] Sushant Vicente M.D. [address] [place] [phone] documented as of this encounter Procedures Procedure Name Priority Date/Time Associated Diagnosis Comments INTERPRETATION OF OUTSIDE NM PET SCAN RAD - Routine (most inpatients and all outpatients) 02/09/2023 3:26 PM NAVAL GUNFIRE SPOTTER Primary Malignant Neoplasm Of Prostate (HCC) documented in this encounter Results * Interpretation of Outside NM PET Scan (02/09/2023 3:26 PM NAVAL GUNFIRE SPOTTER) Anatomical Region Laterality Modality Nuclear Medicine PET RST LOS , Nuclear Medicine ARZ LOS, Nuclear Medicine FLA LOS, Nuclear Medicine, Other, Neuroradiology ARZ LOS, Neuroradiology FLA LOS, Neuroradiology RST LOS, Body N/A Nuclear Medicine 02/15/2023 8:12 AM NAVAL GUNFIRE SPOTTER Impressions 02/15/2023 4:57 PM NAVAL GUNFIRE SPOTTER Intensely radiotracer avid metastases as detailed in the findings. Narrative 02/15/2023 4:57 PM NAVAL GUNFIRE SPOTTER EXAM: ??INTERPRETATION OF OUTSIDE NM PET SCAN [...] the findings. Kallie Rosales APRN, C.N.P., M.S. [facility] [place] PROCEDURES documented in this encounter Visit Diagnoses Diagnosis Primary Malignant Neoplasm Of Prostate (HCC) documented in this encounter Additional Health Concerns Infection Onset Date Last Indicated Resolved Time Protective Environment 07/31/2022 07/31/2022 Assessment Noted Time PHQ-9 Depression Total Score: 2 10/13/19 14 10:45 AM CDT documented as of this encounter Care Teams Motion Picture Equipment Machinist Relationship Specialty Start Date End Date Elsewhere, Pcp PCP - General Family Medicine 12/29/19 documented as of this encounter
--- OUTSIDE RECORDS SUMMARY | 2023-04-25 19:02 | XMS_ITS | Encounter Summary ---
Author Name Unknown Organization [facility] Address [address] [place] [address] Care Team Providers Care Multi Spindle Operator Name Role Phone Elsewhere, Pcp Primary Care Provider Unavailabl e Encounter Details Date Type Department Care Team (Latest Contact Info) Description 02/15/2023 1:03 PM TOBACCO FARMWORKER - 02/15/2023 11:59 PM TOBACCO FARMWORKER Hospital Encounter Department of Laboratory Medicine in [address] [phone] Carson Fletcher M.D. 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 Patient declined 02/03/2022 Do you belong to any clubs o r organizations such as evangelical groups, unions, fraternal or athletic groups, or [...] Date Recorded PHQ-2 Score 2 09/24/2021 [facility]at ional [facility] - [...] place to sleep or slept in a [facility] (including now)? No 02/03/2022 Nutrition Answer Date [...] mg x 2, 2 weeks apart at [facility] on 06/10/2022 and 06/24/2022. 0 [...] st Contact Info) Description 04/26/2023 3:15 PM TOBACCO FARMWORKER Appointment Department of Radiation Oncology in [place], [place] [address] [place] [address] Gurwinder Tejeda M.D. [address] [place] [phone] 05/03/2023 1:00 PM TOBACCO FARMWORKER Appointment Department of Laboratory Medicine in [address] [phone] Carson Feltcher M.D. [address] [place] [phone] 05/03/2023 1:10 PM TOBACCO FARMWORKER Appointment Department of Laboratory Medicine in [address] [phone] Carson Fletcher M.D. [address] [place] [phone] 2023 2:30 PM TOBACCO FARMWORKER Virtual Visit Division of Pulmonary Medicine in [place], [place] [address] [place] [phone] Carson Fletcher M.D. [address] [place] [phone] 07/05/2023 11:20 AM CDT Lab Department of Laboratory Medicine and Pathology, [facility] in [place], [place] [address] [place] [phone] Kallie Rosales APRN, C.N.P., M.S. [address] [place] [phone] 07/05/2023 12:45 PM CDT Appointment Department of Radiology, [facility], in [place], [place] [address] [place] [phone] Kallie Rosales APRN, C.N.P., M.S. [address] [place] [phone] 07/06/2023 11:30 AM CDT Office Visit Department of Urology in [place], [place] [address] [place] [phone] Sushant Vicente M.D. 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) documented in this encounter Results * (ABNORMAL) Urinalysis with Microscopic: Urine, Midstream (02/15/2023 1:20 PM TOBACCO FARMWORKER) Source Urine, Urine, Midstream 02/15/2023 1:20 PM TOBACCO FARMWORKER CNFL Clarity Clear Clear 02/15/2023 1:23 PM TOBACCO FARMWORKER CNFL Color Yellow 02/15/2023 1:23 PM TOBACCO FARMWORKER CNFL Comment: ----REFERENCE VALUE---- Colorless Yellow Cinthia Blood Moderate(A) Negative 02/15/2023 1:23 PM TOBACCO FARMWORKER CNFL Nitrite Negative Negative 02/15/2023 1:23 PM TOBACCO FARMWORKER CNFL Leukocyte Esterase Negative Negative 02/15/2023 1:23 PM TOBACCO FARMWORKER CNFL Protein 30(A) mg/dL 02/15/2023 1:23 PM TOBACCO FARMWORKER CNFL Comment: ----REFERENCE VALUE---- Negative Trace Glucose Negative Negative mg/dL 02/15/2023 1:23 PM TOBACCO FARMWORKER CNFL Ketones, QI(U) Trace(A) Negative mg/dL 02/15/2023 1:23 PM TOBACCO FARMWORKER CNFL Bilirubin Small(A) Negative 02/15/2023 1:23 PM TOBACCO FARMWORKER CNFL pH 5.5 5.0 - 8.0 02/15/2023 1:23 PM TOBACCO FARMWORKER CNFL Specific [place] 1.025 1.001 - 1.035 02/15/2023 1:23 PM TOBACCO FARMWORKER CNFL Urobilinogen 0.2 0.2 - 1.0 mg/dL 02/15/2023 1:23 PM TOBACCO FARMWORKER CNFL White Blood Cells None Seen /hpf 02/15/2023 1:40 PM TOBACCO FARMWORKER CNFL Comment: ----REFERENCE VALUE---- Males: 0-3 Females: 0-10 Unknown: 0-10 Red Blood Cells 3-10(A) 0 - 2 /hpf 1:40 PM TOBACCO FARMWORKER CNFL Dysmorphic Red Blood Cells <=25 <=25 % 02/15/2023 1:40 PM TOBACCO FARMWORKER CNFL Mucus Present /hpf 02/15/2023 1:40 PM TOBACCO FARMWORKER CNFL Squamous Cells Occ-3 /hpf 02/15/2023 1:40 PM TOBACCO FARMWORKER CNFL Bacteria None Seen None Seen 02/15/2023 1:40 PM TOBACCO FARMWORKER CNFL Urine (Urine, Midstream) 02/15/2023 1:20 PM TOBACCO FARMWORKER 02/15/2023 1:20 PM TOBACCO FARMWORKER Carson Fletcher M.D. 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
--- OUTSIDE RECORDS SUMMARY | 2023-04-25 19:02 | XMS_ITS | Encounter Summary ---
Author Name Unknown Organization [facility] Address [address] [place] [address] Care Team Providers Care Curtain Hemmer Automatic Name Role Phone Elsewhere, Pcp Primary Care Provider Unavailabl e Reason for Referral * Outpatient (Routine) - Authorized Specialty Diagnoses / Procedures Referred By Contac t Referred To Contact Radiation Oncology Gurwinder Tejeda M.D. [address] [place] [phone] [facility] Region Referral ID Status Reason Start Date Expiration Date V isits Requested Visits Authorized [id number] Authorized 01/28/2023 01/27/2026 10 10 OPERATIONS MANAGER * Radiation Therapy (Routine) - Authorized Specialty Diagnoses / Procedures Referred By Contac t Referred To Contact Diagnoses Secondary Malignant Neoplasm Bone (HCC) Procedures Management Visit Gurwinder Tejeda M.D. [address] [place] [phone] [facility] Region Referral ID Status Reason Start Date Expiration Date V isits Requested Visits Authorized [id number] Authorized 01/28/2023 01/28/2024 10 10 OPERATIONS MANAGER * Radiation Therapy (Routine) - Authorized Specialty Diagnoses / Procedures Referred By Contac t Referred To Contact Diagnoses Secondary Malignant Neoplasm Bone (HCC) Procedures Prior Auth Rad Tx Gurwinder Tejeda M.D. [address] [place] [phone] [facility] Referral ID Status Reason Start Date Expiration Date V isits Requested Visits Authorized [id number] Authorized 01/28/2023 01/28/2024 1 1 OPERATIONS MANAGER * Radiation Therapy (Routine) - Closed Specialty Diagnoses / Procedures Referred By Brittni t Referred To Contact Diagnoses Secondary Malignant Neoplasm Bone (HCC) Procedures Initial Rad Onc Treatment Planning CT Simulation Gurwinder Tejeda M.D. [address] [place] [address] [facility] Referral ID Status Reason Start Date Expiration Date Visits Re quested Visits Authorized [id number] Closed 01/28/2023 01/28/2024 1 1 OPERATIONS MANAGER Encounter Details Date Type Department Care Team (Late st Contact Info) Description 01/28/2023 Orders Only Department of Radiation Oncology in [place], [place] [address] [place] [phone] Gurwinder Tejeda M.D. [address] [place] [phone] Secondary Malignant Neoplasm Bone (HCC) (Primary Dx) [...] How often do you attend chur or scientology services? Patient declined 02/03/2022 Do you belong [...] Answer Date Recorded PHQ-2 Score 2 09/24/2021 [facility] of Occupat ional Health - Occupational Stress [...] st Contact Info) Description 04/26/2023 3:15 PM AREA OPERATIONS MANAGER Appointment Department of Radiation Oncology in [place], [place] [address] [place] [phone] Gurwinder Tejeda M.D. [address] [place] [phone] 05/03/2023 1:00 PM AREA OPERATIONS MANAGER Appointment Department of Laboratory Medicine in [address] [phone] Carson Fletcher M.D. [address] [place] [phone] 05/03/2023 1:10 PM AREA OPERATIONS MANAGER Appointment Department of Laboratory Medicine in [address] [phone] Carson Fletcher M.D. [address] [place] [phone] 2023 2:30 PM AREA OPERATIONS MANAGER Virtual Visit Division of Pulmonary Medicine in [place], [place] [address] [place] [phone] Carson Fletcher M.D. [address] [place] [phone] 07/05/2023 11:20 AM CDT Lab Department of Laboratory Medicine and Pathology, [place], [place] [address] [place] [phone] Kallie Rosales APRN, C.N.P., M.S. [address] [place] [phone] 07/05/2023 12:45 PM CDT Appointment Department of Radiology, [facility], in [place], [place] [address] [place] [phone] Kallie Rosales APRN, C.N.P., M.S. [address] [place] [phone] 07/06/2023 11:30 AM CDT Office Visit Department of Urology in [place], [place] [address] [place] [phone] Sushant Vicente M.D. [address] [place] [address] Scheduled Orders Name Type Priority Associated Diagnoses Order Schedule Prior Auth Rad Tx Radiation Oncology Routine Secondary Malignant Neoplasm Bone (HCC) Ordered: 01/28/2023 Management Visit Radiation Oncology Routine Secondary Malignant Neoplasm Bone (HCC) 10 Occurrences starting 01/28/2023 until 01/29/2024 Scheduled Referrals Name Type Priority Associated Diagnoses Order Schedule Radiation Oncology nurse visit (clinic) Outpatient Referral Routine 10 Occurrenc es starting 01/28/2023 until 01/28/2026 documented as of this encounter Results * Initial Rad Onc Treatment Planning CT Simulation (02/01/2023 3:00 PM AREA OPERATIONS MANAGER) Narrative STEVIE QUIÑONES - 02/01/2023 3:00 PM AREA OPERATIONS MANAGER Margie Gutierrez, RTT ? 02/01/2023 ??3:48 PM Initial Rad Onc Treatment Planning CT Simulation Performed by: Gurwinder Tejead M.D. Authorized by: Gurwinder Tejeda M.D. ?? Gurwinder Tejeda M.D. RADIATION ONCOLOGY ORDERABLES STEVIE QUIÑONES na documented in this encounter Visit Diagnoses Diagnosis Secondary Malignant Neoplasm Bone (HCC)- Primary Secondary Malignant Neoplasm Bone (HCC) documented in this encounter Additional Health Concerns Infection Onset Date Last Indicated Resolved Time Protective Environment 07/31/2022 07/31/2022 Assessment Noted Time PHQ-9 Depression Total Score: 2 10/13/19 14 10:45 AM CDT documented as of this encounter Care Teams Curtain Hemmer Automatic Relationship Specialty Start Date End Date Elsewhere, Pcp PCP - General Family Medicine 12/29/19 documented as of this encounter
--- OUTSIDE RECORDS SUMMARY | 2023-04-25 19:02 | XMS_ITS | Encounter Summary ---
Author Name Unknown Organization [facility] Address [address] [place] [address] Care Team Providers Care Commissary Representative Name Role Phone Elsewhere, Pcp Primary Care [...] IV Contrast Kassie Cash P.A.-C., M.S. [address] [place] [address] [facility] Referral ID Status Reason Start Date Expiration Date Visits Re quested Visits Authorized [id number] Closed 02/01/2023 02/01/2024 1 1 ATIENT INTERVIEWING CLERK Reason for Visit * Appointment Request (Routine) - Closed Specialty Diagnoses / Procedures Referred By Contac t Referred To Contact Radiation Oncology Diagnoses Primary Malignant Neoplasm Of Prostate (HCC) Marcie Wilkinson M.D. [address] [place] [address] Referral ID Status Reason Start Date Expiration Date Visits Re quested Visits Authorized [id number] Closed 01/28/2023 01/28/2024 1 1 Encounter Details Date Type Department Care Team (Latest Contact Info) Description 02/01/2023 1:26 PM OUTPATIENT INTERVIEWING CLERK - 02/04/2023 3:07 PM OUTPATIENT INTERVIEWING CLERK Hospital Encounter Department of Radiation Oncology in [place], [place] [address] [place] [address] Gurwinder Tejeda M.D. [address] [place] [address] Rising Prostate Specific Antigen Following Treatment For [...] often do you attend chur ch or caodaism services? Patient declined 02/03/2022 Do you belong to any clubs o r organizations such as shinto groups, unions, fraternal or athletic groups, or [...] Answer Date Recorded PHQ-2 Score 2 09/24/2021 [facility] of Occupat ional Health - Occupational Stress [...] Reading Time Taken Comments Blood Pressure 135/60 02/01/2023 1:51 PM OUTPATIENT INTERVIEWING CLERK Pulse 86 02/01/2023 1:51 PM OUTPATIENT INTERVIEWING CLERK Temperature 36.7 ??C (98 ??F) 02/01/2023 1:51 PM OUTPATIENT INTERVIEWING CLERK Respiratory Rate - - Oxygen Saturation - - Inhaled Oxygen Concentration - - Weight 82.7 kg (182 lb 5.1 oz) 02/01/2023 1:51 P M OUTPATIENT INTERVIEWING CLERK Height - - Body Mass Index 28.08 12/22/2022 1:50 PM CDT documented in this encounter Discharge Instructions * Patient Instructions* Kassie Cash P.A.-C., M.S. - 02/01/2023 2:00 PM OUTPATIENT INTERVIEWING CLERK 47 ATIENT INTERVIEWING CLERK documented in this encounter Medications at Time [...] mg x 2, 2 weeks apart at [facility] on 06/10/2022 and 06/24/2022. 0 06/10/2022 [...] 0 11/27/2021 documented as of this encounter Consult Notes * Kassie Cash P.A.-C., M.S. - 02/01/2023 2:00 PM CST SUBJECTIVE REQUESTING PROVIDER Marcie Wilkinson M.D. REASON FOR CONSULT 1. Rising Prostate Specific Antigen Following Treatment For Malignant Cancer Of Prostate 2. Secondary Malignant Neoplasm Bone (HCC) SUPERVISED BY: Gurwinder Teejda M.D. ([id number]) HISTORY OF PRESENT ILLNESS Mr. 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 His oncologic history is as follows: Oncology History Primary Malignant Neoplasm Of Prostate (HCC) 02/21/2004 Other PSA 4.6 ng/mL 07/01/2004 Surgery and Procedures Underwent robotic-assisted radical prostatectomy by Dr. Duque. Pathology revealed Ridgeway 3 + 3, pT2c, N0, MX, R0 [...] in [address] Cole at [place], [place] for a biochemical recurrence. 12/26/2013 Other [...] multiple scattered radiotracer positive osseous lesions including client care representative examples involving the T2 vertebral body, SUV max 26.7, T4 vertebral body, SUV max 20.6,and right posterior iliac bone, SUV max 26.9. INTERVAL HISTORY The patient was seen and examined today with Dr. Tejeda. The patient reports doing well overall. He reports tolerating treatment with leuprolide, Olaparib, and Zytiga well. He reports pain primarily located in his sternum, ribs, and mid back. He had increased pain and presented to the ER approximately 2 weeks ago. He currently rates his pain as 2-3/10 inseverity and states that at its worst the pain is 8-9/10 in severity. He reports that the pain is variable in the different locations. He is taking hydromorphone at night to help him sleep. He takes Tylenol 1000 mg 2-3 times during the day. He reports good pain control with this regimen. He denies pain in his low back or legs. He denies numbness or weakness of the legs, but does have occasional ti ngling in the right leg. He reports bowel changes for the past 6 weeks. He reports having one regular bowel movement in the morning, then he will have diarrhea the rest of the morning. He does have associated fecal incontinence with the diarrhea. He denies pain or bleeding with bowel movements. He has been taking Imodium two tablets in the evening and two in the morning without benefit. He reports increased urinary frequency with drinking increased amounts of water. He denies urinary incontinence. The patient has received previous radiation therapy, as detailed above. He denies a history of connective tissue disorders or inflammatory bowel disease. His ECOG performance status is 1. AUA SYMPTOM INDEX: 02/04/23: 11 (2, 3, 2, 2, 1, 0, 1) IIEF-5 QUESTIONNAIRE: 02/04/23: 5 (1, 1, 1, 1, 1) - severe erectile dysfunction REVIEW OF SYSTEMS Review of systems was negative except as documented above. PAST MEDICAL HISTORY Past Medical History: Diagnosis Date BenignProstatic Hyperplasia Localized 15 years ago Cataract 6 years ago surgery on both eyes Gastroesophageal Reflux Disease NOS Long Time, Take Medications Hyperlipidemia Long Time, Take medications Other Injury Of Unspecified Body Region 04/21/2017 Right knee total replacement Other Specified Health Status 6 years ago Granulomatosis with Polyangiitis GPA Polyp Colon Last Year, Said no Problem Primary Malignant Neoplasm Of Prostate (HCC) 15 years ago Skin Cancer (Primary) NOS 1 polop removed right arm PAST SURGICAL HISTORY Past Surgical History: Procedure Laterality Date CATARACT EXTRACTION CORONARY STENT PLACEMENT 02 24 2021 JOINT REPLACEMENT 04/21/2017 Total right knee replacement PROSTATECTOMY N/A 01 Jul 2004 radical prostatectomy with pelvic lymphadenectomy FAMILY HISTORY Family History Adopted: Yes SOCIAL HISTORY Social History Socioeconomic History Marital status: Spouse name: Diana Number of children: 3 Highest education level: 12th grade Tobacco Use Smoking status: Some Days Packs/day: 0.25 Years: 30.00 Additional pack years: 0.00 Total pack years: 7.50 Types: Cigarettes Passive exposure: Past Smokeless tobacco: Never Vaping Use Vaping Use: never used Substance and Sexual Activity Alcohol use: Yes Alcohol/week: 2.0 standard drinks of alcohol Types: 2 Standard drinks or equivalent per week Drug use: Never Sexual activity: Never OBJECTIVE BP 135/60 (BP Location: Right arm, Patient Position: Sitting, Cuff Size: Regular) Pulse 86 Temp36.7 ??C (Temporal) Wt 82.7 kg BMI 28.08 kg/m?? PHYSICAL EXAM GENERAL: Alert and oriented in no apparent distress. The patient is here today with his , Isacc. HEART: Regular rate and rhythm. LUNGS: Clear to auscultation bilaterally. MUSCULOSKELETAL: Patient localized the areas of pain in his sternum and mid back without significant tenderness to palpation on examination. Ribs were non- tender to palpation. ASSESSMENT / PLAN #1 pT2c, N0, MX, RO, Ridgeway 3+3, PSA 4.6 adenocarcinoma of the prostate s/p robotic-assisted radical prostatectomy on July 01, 2004 #2 Salvage radiation therapy completed on November 29, 2013 #3 Intermittent [...] Zytiga/prednisone re-initiated in July 2022 #10 PSMA PET-CT scan on January 22, 2023 demonstrated multiple osseous lesions I had a discussion with the patient and his regarding his prostate cancer diagnosis. We reviewed his oncologic history as detailed above. We reviewed his recent Choline and PSMA PET-CT scans that demonstrated multiple areas of osseous metastatic disease. The patient reports pain in the sternum, ribs, and mid- back. We also discussed the risks, benefits, and alternatives of radiotherapy in this setting. Dr. Tejeda offered radiation therapy to the painful bone metastases in 1 or 5 fractions. I discussed the logistics as well as the acute and chronic side effects of radiotherapy. The acute side effects are common and include, but are not limited to, possible pain flare, radiation dermatitis, radiation esophagitis, mild cough, and fatigue. Long-term side effects could include risks of bone fracture and nerve damage. The patient was provided with a written summary of recommendations. His questions were answered to his verbalized satisfaction. The patient does report new bowel changes including diarrhea and associated fecal incontinence. We have ordered for a MRI of the pelvis to be done in [place] to evaluate for disease and/or possiblecauses. After discussion, the patient verbally stated that he would like to proceed with radiation treatment. He signed consent. He is scheduled for CT simulation today. Dr. Tejeda also met with the patient today, please see his attestation for details, including the final planned dosing and fractionation for radiation therapy. The patient was provided with our contact information. He will contact us with questions [...] procedure. All questions answered and consent given. PRIMARY PROVIDER Dr. Trevizo I personally spent 47 minutes in care of the patient today. Time includes both non face to face andface to face patient care. Signed by: Kassei Cash P.A.-C., M.S. 02/04/2023 9:22 AM OUTPATIENT INTERVIEWING CLERK [facility] [address] [place] [address] ATIENT INTERVIEWING CLERK Associated attestation - Gurwinder Tejeda M.D. - 02/04/2023 3:06 PM OUTPATIENT INTERVIEWING CLERK I saw and evaluated the patient and participated in the savage portions of the service. I reviewed thedocumentation of Kassie Cash P.A.-C. and agree with the findings and plan. Mr.J. Sukhdev Gates is a 77 y.o. 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 We are asked by Dr. Wilkinson to evaluate the patient for radiotherapy. His oncologic history is well-detailed in Ms. Cash's note. In brief, PSA of 4.6 ng/mL on February 21, 2004 resulted in a diagnosis of prostate cancer that was treated with robotic assisted radical prostatectomy on July 01, 2004 with pathology confirming Chica 3+3 adenocarcinoma, pT2c, N0, M0, R0.PSA was undetectable until April 2012 when it was 0.25 ng/mL rising to 0.39 ng/mL by July 20, 2013. Patient was treated with salvage external beam radiotherapy to the prostate fossa to a dose of 70.2 Gy in 39 fractions finishing on November 29, 2013 under the care of Dr. Cole. His PSA never went undetectable and was 0.98 ng/mL on December 26, 2013 rising to 3.2 ng/mL on July 25, 2014. Choline PET/CT scan on July 31, 2014 revealed bilateral iliac and aortocaval lymph nodes with indeterminate fociof activity in the L1 and L5 vertebral bodies. ADT with Lupron was initiated on August 15, 2014. His PSA responded initially but then hollie all the way to 35.5 ng/mL by November 22, 2018. A choline PET/CT scan on December 01, 2018 revealed choline avid lymph nodes in the retroperitoneum all the way to the level the kidneys but also in the mediastinum and hilum. He saw Dr. Vicente who added Zytiga with prednisone on December 13, 2018. His PSA again responded but then hollie to 5.9 ng/mL. By August 29, 2020, his PSA hollie to 8.5 ng/mL and a PSMA PET/CT scan showed multiple bone metastases and lymph node metastases in his retroperitoneum. He was treated with 6 cycles of carboplatin and docetaxel under the care of Dr. Mott finishing on January 31, 2021. He was then placed on olaparib from February 28, 2021 through September of 2021. PSA hollie to 32.8 ng/mL on November 10, 2021, and the patient was treated with 6 cycles of Pluvicto finishing on June 09, 2022. Olaparib and Zytiga with prednisone were restarted in July of 2022 and ADT was continued. A choline PET/CT scan on November 05, 2022 showed mild progression of osseous metastatic disease. PSA on that same date was 9.8 ng/mL. PSA increased to 19.2 ng/mL on January 14, 2023 and a PSMA PET/CT on January 22, 2023 scan showed progression in multiple bony metastases. He saw Dr. Wilkinson in consultation last week because of multiple areas of pain in his ribs, sternum, and back. She recommended palliative radiotherapy and referred him to us because he lives closer to our center. The patient reports migratory pain throughout his torso that waxes and wanes. It can be as severe as 8 to 9/10. He is never localized to just 1 location. His pain is reasonably well managed with hydromorphone at night and Tylenol 1000 mg 2-3 times daily. He denies new neurologic symptoms. His ECOG performance status is 1. OBJECTIVE BP 135/60 (BP Location: Right arm, Patient Position: Sitting, Cuff Size: Regular) Pulse 86 Temp36.7 ??C (Temporal) Wt 82.7 kg BMI 28.08 kg/m?? PHYSICAL EXAM General: Patient is awake, alert, and oriented to person, place, and time. No apparent distress. The patient is here today with his Isacc. Spine: There is no tenderness to palpation of the spine or the ribcage on either side. There is also no clear point tenderness of the sternum. DIAGNOSTICS I reviewed the patient's pathology reports and imaging. ASSESSMENT / PLAN #1 pT2c, N0, MX, [...] in the thoracic spine, sternum, and ribs I had a detailed discussion with the patient and spouse regarding the risks, benefits, and alternatives of radiotherapy in this setting. I went over these with the patient. I recommend treatment to the sternum and the midthoracic spine to a dose of 8 Gy in 1 fraction. I will likely see him back a few weeks later to see if there are any other areas of pain that need treatment. I discussed the logistics as well as the acute and chronic side effects of treatment in detail. Fora complete listing of these, please see Ms. Cash's note. After this discussion, I provided the patient with a written summary of my recommendations. His questions and those of his spouse were answered to their verbalized satisfaction. The patient verbally stated that he would like to proceed with treatment and signed the consent form. He will undergo CT s imulation today. We will endeavor to begin treatment on Sunday, February 05, 2023. My thanks to Drs. Wilkinson, Cinthia, Tiera, and Joseline for the opportunity to participate in this patient's care. Signed by: Gurwinder Tejeda M.D. 02/04/23 3:06 PM OUTPATIENT INTERVIEWING CLERK [facility] Radiation Therapy [facility] documented in this encounter Miscellaneous Notes * Addendum Note - Lorin Ward, C.N.A. - 02/01/2023 2:00 PM CSTEncounter addended by: Lorin Ward C.N.A. on: 02/04/2023 3:24 PM Actions taken: Letter saved ATIENT INTERVIEWING CLERK documented in this encounter Plan of Treatment Upcoming Encounters Date Type Department Care Team (Late st Contact Info) Description 04/26/2023 3:15 PM OUTPATIENT INTERVIEWING CLERK Appointment Department of Radiation Oncology in [place] [address] [place] [address] Gurwinder Tejeda M.D. [address] [place] [phone] 05/03/2023 1:00 PM OUTPATIENT INTERVIEWING CLERK Appointment Department of Laboratory Medicine in [address] [phone] Carson Fletcher M.D. [address] [place] [phone] 05/03/2023 1:10 PM OUTPATIENT INTERVIEWING CLERK Appointment Department of Laboratory Medicine in [address] [phone] Carson Fletcher M.D. [address] [place] [phone] 2023 2:30 PM OUTPATIENT INTERVIEWING CLERK Virtual Visit Division of Pulmonary Medicine in [place], [place] [address] [place] [phone] Carson Fletcher M.D. [address] [place] [phone] 07/05/2023 11:20 AM CDT Lab Department of Laboratory Medicine and Pathology, [facility] in [place], [place] [address] [place] [phone] Kallie Rosales APRN, C.N.P., M.S. [address] [place] [phone] 07/05/2023 12:45 PM CDT Appointment Department of Radiology, [facility], in [place], [place] [address] [place] [phone] Kallie Rosales APRN, C.N.P., M.S. [address] [place] [phone] 07/06/2023 11:30 AM CDT Office Visit Department of Urology in [place], [place] [address] [place] [phone] Sushant Vicente M.D. [address] [place] [phone] documented as of this encounter Results * MR Musculoskeletal Pelvis without and with IV Contrast (02/18/2023 1:29 PM OUTPATIENT INTERVIEWING CLERK) Anatomical Region Laterality Modality Musculoskeletal, Musculoskel etal RST LOS, Musculoskeletal ARZ LOS, Muskuloskeletal FLA LOS N/A Magne tic Resonance 02/18/2023 12:4 6 PM OUTPATIENT INTERVIEWING CLERK Impressions 02/18/2023 3:42 PM OUTPATIENT INTERVIEWING CLERK 1. Multiple enhancing intramedullary lesions in the right ilium and sacrum with corresponding elevated PSMA expression on the prior PET/CT, compatible with osseous metastatic disease. 2. Multiple pelvic insufficiency fractures involving bilateral pubic bodies and irina and left acetabulum as described. Narrative 02/18/2023 3:42 PM OUTPATIENT INTERVIEWING CLERK EXAM: ??MR MUSCULOSKELETAL PELVIS WITHOUT AND WITH [...] Cash P.A.-C., M.S. IMG MRI PROCED URES documented in this encounter Visit Diagnoses Diagnosis Rising Prostate Specific Antigen Following Treatment For Malignant Cancer Of Prostate- Primary Secondary Malignant Neoplasm Bone (HCC) Rising Prostate Specific Antigen Following Treatment For Malignant Cancer Of Prostate Secondary Malignant Neoplasm Bone (HCC) documented in this encounter Additional Health Concerns Infection Onset Date Last Indicated Resolved Time Protective Environment 07/31/2022 07/31/2022 Assessment Noted Time PHQ-9 Depression Total Score: 2 10/13/19 14 10:45 AM CDT documented as of this encounter Care Teams Commissary Representative Relationship Specialty Start Date End Date Elsewhere, Pcp PCP - General Family Medicine 12/29/19 documented as of this encounter
--- OUTSIDE RECORDS SUMMARY | 2023-04-25 19:03 | XMS_ITS | Encounter Summary ---
Author Name Unknown Organization [facility] Address [address] [place] [id number] Care Team Providers Care Molder Machine Tender Name Role Phone Elsewhere, Pcp Primary Care Provider Unavailabl e Reason for Visit * Reason Onset Date Comments Lab Monitoring 12/25/2022 Vasculitis Encounter Details Date Type Department Care Team (Latest Contact Info) Description 12/25/2022 Clinical Communication Division of Pulmonary Medicine in [place], [place] [address] [place] [phone] Carson Fletcher M.D. [address] [place] [phone] Lab Monitoring (Vasculitis) Social History Tobacco Use [...] often do you attend chur ch or islam services? Patient declined 02/03/2022 Do you belong to any clubs o r organizations such as faith groups, unions, fraternal or athletic groups, or [...] Answer Date Recorded PHQ-2 Score 2 09/24/2021 [facility] of Occupat ional Health - Occupational Stress [...] place to sleep or slept in a alf (including now)? No 02/03/2022 Nutrition Answer Date [...] encounter Miscellaneous Notes * Telephone Encounter - Jadyn Donovan R.N. 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 PR3-ANCA decreased following rituximab. COVID-19 vaccines last dose 01/08/2022. Per 12/22/2022 & 09/14/[address] Fletcher the plan is: - Quarterly B-cells and ANCA due approx 03/16/2023 either by kit or on-campus w/other returns (B-cell & ANCA scheduled for 03/08/23) - Bactrim SS daily for PJP pneumonia prevention - Prednisone 10 mg daily (for prostate CA as managed by oncology) - Consider rituximab based upon evolution of CT chest changes & ONC treatments - Return due Feb 2023 with urology visit, scheduled for 03/09/23. Portal user: Plan sent documented in this encounter Plan of Treatment Upcoming Encounters Date Type Department Care Team (Late st Contact Info) Description 04/26/2023 3:15 PM INVESTMENT ASSOCIATE Appointment Department of Radiation Oncology in [address] [phone] Gurwinder Tejeda M.D. [address] [place] [phone] 05/03/2023 1:00 PM INVESTMENT ASSOCIATE Appointment Department of Laboratory Medicine in [address] [phone] Carson Fletcher M.D. [address] [place] [phone] 05/03/2023 1:10 PM INVESTMENT ASSOCIATE Appointment Department of Laboratory Medicine in [address] [phone] Carson Fletcher M.D. [address] [place] [phone] 2023 2:30 PM INVESTMENT ASSOCIATE Virtual Visit Division of Pulmonary Medicine in [place], [place] [address] [place] [phone] Carson Fletcher M.D. [address] [place] [phone] 07/05/2023 11:20 AM CDT Lab Department of Laboratory Medicine and Pathology, [facility] in [place], [place] [address] [place] [phone] Kallie Rosales APRN, C.N.P., M.S. [address] [place] [phone] 07/05/2023 12:45 PM CDT Appointment Department of Radiology, [facility] in [place], [place] [address] [place] [phone] Kallie Rosales APRN, C.N.P., M.S. [address] [place] [phone] 07/06/2023 11:30 AM CDT Office Visit Department of Urology in [place], [place] [address] [place] [phone] Sushant Vicente M.D. [address] [place] [phone] documented as of this encounter Visit Diagnoses Not on filedocumented in this encounter Additional Health Concerns Infection Onset Date Last Indicated Resolved Time Protective Environment 07/31/2022 07/31/2022 Assessment Noted Time PHQ-9 Depression Total Score: 2 10/13/19 14 10:45 AM CDT documented as of this encounter Care Teams Molder Machine Tender Relationship Specialty Start Date End Date Elsewhere, Pcp PCP - General Family Medicine 12/29/19 documented as of this encounter
--- OUTSIDE RECORDS SUMMARY | 2023-04-25 19:03 | XMS_ITS | Encounter Summary ---
Author Name Unknown Organization [facility] Address [address] [place] [address] Care Team Providers Care Health Occupations Instructor Name Role Phone Elsewhere, Pcp Primary Care Provider Unavailabl e Encounter Details Date Type Department Care Team (Latest Contact Info) Description 12/22/2022 11:50 AM CDT - 12/22/2022 11:59 PM CDT Hospital Encounter Department of Laboratory Medicine and Pathology, [facility] in [place], [place] [address] [place] [phone] Carson Fletcher M.D. 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 Patient declined 02/03/2022 Do you belong [...] Recorded PHQ-2 Score 2 09/24/2021 [facility] Occupat ional Health - Occupational Stress [...] place to sleep or slept in a fpc (including now)? No 02/03/2022 Nutrition Answer Date [...] 1 capsule by mouth daily. 0 08/10/2016 diphenhydrAMINE-acetami nophen (TYLENOL PM) 25-500 mg per tablet Take 1 tablet by mouth as needed. Insomnia 0 09/12/2013 DOCOSAHEXANOIC ACID/EPA (FISH OIL ORAL) Take 1 capsule by mouth daily. 1000 mg daily as supplement. 0 12/31/2016 leuprolide (ELIGARD 6 MONTH) 45 mg injection [...] 1 tablet by mouth as needed. 0 nitroglycerin (NITROSTAT) 0.4 mg SL tablet [...] mg x 2, 2 weeks apart at [facility] on 06/10/2022 and 06/24/2022. 0 06/10/2022 sulfamethoxazole-trimet hoprim (BACTRIM) 400-80 mg per tablet Take 1 tablet by mouth daily. 90 tablet 3 09/14/2022 zinc chelated 50 mg tablet tablet Take 50 mg by mouth daily. 0 abiraterone (Zytiga) 500 mg tablet Take 2 tablets by mouth daily after dinner. 0 08/11/2022 03/09/2023 FOLIC ACID/MULTIVIT-MIN/LUTEI N (CENTRUM SILVER ORAL) Take 1 tablet by mouth daily. 0 07/18/2008 03/09/2023 Lactobacillus acidophilus (Probiotic) 10 billion cell capsule Take 1 capsule by mouth daily. 0 03/09/2023 METHOTREXATE SODIUM ORAL Take by mouth. 0 11/27/2021 03/09/2023 NON FORMULARY Take by mouth. PEDI [...] 0.1 % cream Apply topically. 0 11/27/2021 03/09/2023 documented as of this encounter Plan of Treatment Upcoming Encounters Date Type Department Care Team (Late st Contact Info) Description 04/26/2023 3:15 PM CLEARANCE REP Appointment Department of Radiation Oncology in [place] [id number] [place] [address] Gurwinder Tejeda M.D. [address] [place] [phone] 05/03/2023 1:00 PM CLEARANCE REP Appointment Department of Laboratory Medicine in [address] [phone] Carson Fletcher M.D. [address] [place] [phone] 05/03/2023 1:10 PM CLEARANCE REP Appointment Department of Laboratory Medicine in [address] [phone] Carson Fletcher M.D. [address] [place] [phone] 2023 2:30 PM CLEARANCE REP Virtual Visit Division of Pulmonary Medicine in [place], [place] [address] [place] [phone] Carson Fletcher M.D. [address] [place] [phone] 07/05/2023 11:20 AM CDT Lab Department of Laboratory Medicine and Pathology, [facility] in [place], [place] [address] [place] [phone] Kallie Rosales APRN, C.N.P., M.S. [address] [place] [phone] 07/05/2023 12:45 PM CDT Appointment Department of Radiology, [facility] in [place], [place] [address] [place] [phone] Kallie Rosales APRN, C.N.P., M.S. [address] [place] [phone] 07/06/2023 11:30 AM CDT Office Visit Department of Urology in [place], [place] [address] [place] [phone] Sushant Vicente M.D. 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 LAB URINE ORDERABLES Performing Organization Address City/[facility]/ZIP Co de Phone Number [facility] [address] 200 [place] [address] * pH, Urine (12/22/2022 12:06 PM CDT) Pathologist [facility] pH, U 5.4 4.5 - 8.0 12/22/2022 2:0 1 PM CDT DT Urine 12/22/2022 12:0 6 PM CDT 12/22/2022 1:08 PM CDT Carson Fletcher M.D. LAB URINE ORDERABLES [facility] [address] [place], [place] [phone] [place] [address] [address] [place] [address] * Osmolality, Urine (12/22/2022 12:06 PM CDT) Pathologist [facility] Osmolality, U 335 150 - 1150 mOsm/kg 12/22/2022 2:01 PM CDT DTL Urine 12/22/2022 12:0 6 PM CDT 12/22/2022 1:08 PM CDT Carson Fletcher M.D. LAB URINE ORDERABLES Performing Organization Address City/[facility]/ZIP Co de Phone Number [facility] 200 [place] [address], [facility] 200 [place] [address] * (ABNORMAL) Microscopic Automated (12/22/2022 12:06 PM CDT) Microscopy Abnormal 12/22/2022 1:41 PM CDT DTL RBC 3-10(A) <3 /hpf 12/22/2022 1:41 PM CDT DTL Dysmorphic RBC <25 <25 % 12/22/2022 1:41 PM CDT DTL Urine 12/22/2022 12:0 6 PM CDT 12/22/2022 1:08 PM CDT Carson Fletcher M.D. LAB URINE ORDERABLES Performing Organization Address City/[facility] Co de Phone Number [facility] 200 [place] [address], [facility] 200 [place] [address] * (ABNORMAL) Urinalysis with Microscopic: Urine, Midstream (12/22/2022 12:06 PM CDT) Source Urine, Urine, Midstream 12/22/2022 1:07 PM CDT DTL Color, U Yellow 12/22/2022 1:08 PM CDT DTL Clarity, U Clear 12/22/2022 1:08 PM CDT DTL Protein, U 12 <26 mg/dL 12/22/2022 2:24 PM CDT DTL Protein/Osmol ality 0.36 <0.42 ratio 12/22/2022 2:24 PM CDT DTL Predicted 24 HR Protein, U 354(H) <229 mg/24 h 12/22/2022 2:24 PM CDT DTL Predicted Range 112-1115 mg/24 h 12/22/2022 2:24 PM CDT DTL Urine (Urine, Midstream) 12/22/2022 12:06 PM CDT 12/22/2022 1:07 PM CDT Carson Fletcher M.D. LAB URINE ORDERABLES [facility] [address] [place] [address], 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
--- OUTSIDE RECORDS SUMMARY | 2023-04-25 19:03 | XMS_ITS | Encounter Summary ---
Author Name Unknown Organization [facility] Address [address] [place] [address] Care Team Providers Care Indirect Fire Infantryman Name Role Phone Elsewhere, Pcp Primary Care Provider Unavailabl e Encounter Details Date Type Department Care Team (Latest Contact Info) Description 12/22/2022 11:49 AM CDT Hospital Encounter Department of Laboratory Medicine and Pathology, [facility], in [place], [place] [address] [place] [phone] Carson Fletcher M.D. 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 Patient declined 02/03/2022 Do you belong to any clubs o r organizations such as pentecostal groups, unions, fraternal or athletic groups, or [...] Answer Date Recorded PHQ-2 Score 2 09/24/2021 [facility] of Occupat ional Health - [...] place to sleep or slept in a penitentiary (including now)? No 02/03/2022 Nutrition Answer Date [...] mg x 2, 2 weeks apart at [facility] on 06/10/2022 and 06/24/2022. 0 06/10/2022 sulfamethoxazole-trimet [...] st Contact Info) Description 04/26/2023 3:15 PM ENGINE BUILDUP MECHANIC Appointment Department of Radiation Oncology in [place] [address] [place] [phone] Gurwinder Tejeda M.D. [address] [place] [phone] 05/03/2023 1:00 PM ENGINE BUILDUP MECHANIC Appointment Department of Laboratory Medicine in [address] [phone] Carson Fletcher M.D. [address] [place] [phone] 05/03/2023 1:10 PM ENGINE BUILDUP MECHANIC Appointment Department of Laboratory Medicine in [address] [place] [phone] Carson Fletcher M.D. [address] [place] [phone] 2023 2:30 PM ENGINE BUILDUP MECHANIC Virtual Visit Division of Pulmonary Medicine in [place], [place] [address] [place] [phone] Carson Fletcher M.D. [address] [place] [phone] 07/05/2023 11:20 AM CDT Lab Department of Laboratory Medicine and Pathology, [facility], in [place], [place] [address] [place] [phone] Kallie Rosales APRN C.N.P., M.S. [address] [place] [phone] 07/05/2023 12:45 PM CDT Appointment Department of Radiology, [facility] in [place], [place] [address] [place] [address] Kallie Rosales APRN, C.N.P., M.S. [address] [place] [phone] 07/06/2023 11:30 AM CDT Office Visit Department of Urology in [place], [place] [address] [place] [phone] Sushant Vicente M.D. 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) CYTOPLASMIC NEUTROPHIL ABS, S Routine 12/22/2022 12:00 PM CDT SEDIMENTATION RATE, B Routine 12/22/2022 12:00 PM CDT 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) CBC WITH DIFFERENTIAL, B Routine 12/22/2022 12:00 PM CDT 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) C-REACTIVE PROTEIN (CRP), S/P Routine 12/22/2022 12:00 PM CDT 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) URIC ACID, S/P Routine 12/22/2022 12:00 PM CDT 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) PHOSPHORUS (INORGANIC), S Routine 12/22/2022 12:00 PM CDT 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) GLUCOSE, FASTING, S/P Routine 12/22/2022 12:00 PM CDT 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) IMMUNOGLOBULIN G (IGG), S Routine 12/22/2022 12:00 PM CDT 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 Consistent with ANCA-associated vasculitis, if compatible clinical features are present. ----ADDITIONAL INFORMATION---- This test was developed and its performance characteristics determined by [facility] in a manner consistent with CLIA requirements. This test has not been cleared or approved by the U.S. Food and Drug Administration. Blood 12/22/2022 12:0 0 PM CDT 12/22/2022 7:03 PM CDT Carson Fletcher M.D. LAB BLOOD ADD-ON Performing Organization Address City/[facility]/ZIP Co de Phone Number [facility] [address] [place] [address] [facility] [address] [place] [address] [place] [address] * Immunoglobulin G (IgG) (12/22/2022 12:00 PM CDT) Immunoglobulin G (IgG), S 863 767 - 1590 mg/dL 12/22/2022 5:34 PM CDT [facility] Blood (Blood, Venous) 12/22/2022 12:00 PM CDT 12/22/2022 5:07 PM CDT Carson Fletcher M.D. LAB BLOOD ADD-ON Performing Organization Address [facility] Co de Phone Number [facility] [address] [place] [address] [facility] [address] [place] [address] * (ABNORMAL) Uric Acid (12/22/2022 12:00 PM CDT) Uric Acid, S 3.5(L) 3.7 - 8.0 mg/dL 12/22/2022 1:11 PM CDT [facility] Blood (Blood, Venous) 12/22/2022 12:00 PM CDT 12/22/2022 12:49 PM CDT Carson Fletcher M.D. LAB BLOOD ADD-ON Performing Organization Address City/[facility]/ZIP Co de Phone Number [facility] [address] [place] [address], [place] [facility] [place] [address] [place] [address] * Phosphorus Inorganic (12/22/2022 12:00 PM CDT) Phosphorus (Inorganic), S 3.5 2.5 - 4.5 mg/dL 12/22/2022 1:11 PM CDT DTL Blood (Blood, Venous) 12/22/2022 12:00 PM CDT 12/22/2022 12:49 PM CDT Carson Fletcher M.D. LAB BLOOD ADD-ON Performing Organization Address City/[facility]/ZIP Co de Phone Number [facility] 200 [place], [place] [phone] [place] [address] 200 [place] [address] * Glucose, Fasting (12/22/2022 12:00 PM CDT) Glucose, P 91 70 - 100 mg/dL 12/22/2022 1:04 PM CDT DTL Last Intake 18 hr 12/22/2022 12:48 PM CDT DTL Blood (Blood, Venous) 12/22/2022 12:00 PM CDT 12/22/2022 12:48 PM CDT Carson Fletcher M.D. LAB BLOOD NON ADD-ON Performing Organization Address City/[facility] Co de Phone Number [facility] [address] [place], [place] [phone] [place] [address] 200 [place] [address] * CRP (C-Reactive Protein) (12/22/2022 12:00 PM CDT) C-Reactive Protein (CRP), S <3.0 <5.0 mg/L 12/22/2022 1:11 PM CDT DTL Blood (Blood, Venous) 12/22/2022 12:00 PM CDT 12/22/2022 12:49 PM CDT Carson Fletcher M.D. LAB BLOOD ADD-ON Performing Organization Address City/[facility]/ZIP Co de Phone Number [facility] [address] [place], [place] [phone] [place] [address] [facility] [place] 200 [place] [address] * Sedimentation Rate (12/22/2022 12:00 PM CDT) Sedimentation Rate, B 26 3 - 28 mm/h 12/22/2022 1:57 PM CDT DTL Blood (Blood, Venous) 12/22/2022 12:00 PM CDT 12/22/2022 12:35 PM CDT Carson Fletcher M.D. LAB BLOOD ADD-ON [facility] 200 [place] [address], [facility] [place] 200 [place] [address] * Comprehensive Metabolic Panel (12/22/2022 12:00 PM CDT) Pathologist [facility] Potassium, S 4.1 3.6 - 5.2 mmol/L 12/22/2022 1:11 PM CDT DTL Sodium, S 142 135 - 145 mmol/L 12/22/2022 1:11 PM CDT DTL Chloride, S 104 98 - 107 mmol/L 12/22/2022 1:11 PM CDT DTL Bicarbonate, S 26 22 - 29 mmol/L 12/22/2022 1:11 PM CDT DTL Anion Gap 12 7 - 15 12/22/2022 1:11 PM CDT DTL BUN (Blood Urea Nitrogen), S 13 8 - 24 mg/dL 12/22/2022 1:11 PM CDT DTL Creatinine 1.15 0.74 - 1.35 mg/dL 12/22/2022 1:11 PM CDT DTL Estimated GFR (eGFR) 65 >=60 mL/min/BS A 12/22/2022 1:11 PM CDT DTL Comment: Estimated GFR calculated using the 2020 CKD_EPI creatinine equation. Calcium, Total, S 9.0 8.8 - 10.2 mg/dL 12/22/2022 1:11 PM CDT DTL Glucose, S CANCELED mg/dL 12/22/2022 12:49 PM CDT DTL Comment: Duplicate test request. Result canceled by the ancillary. Protein, Total, S 6.4 6.3 - 7.9 g/dL 12/22/2022 1:11 PM CDT DTL Albumin, S 4.2 3.5 - 5.0 g/dL 12/22/2022 1:11 PM CDT DTL Aspartate Aminotransferase (AST), S 19 8 - 48 U/L 12/22/2022 1:11 PM CDT DTL Alkaline Phosphatase, S 123 40 - 129 U/L 12/22/2022 1:11 PM CDT DTL Alanine Aminotransferase (ALT), S 14 7 - 55 U/L 12/22/2022 1:11 PM CDT DTL Bilirubin, Total, S 0.6 0.0 - 1.2 mg/dL 12/22/2022 1:11 PM CDT DTL Blood (Blood, Venous) 12/22/2022 12:00 PM CDT 12/22/2022 12:49 PM CDT Carson Fletcher M.D. LAB BLOOD ADD-ON [facility] - [address] [address], [facility] [place] [address] * (ABNORMAL) CBC with Differential, Blood (12/22/2022 12:00 PM CDT) Hemoglobin 13.2 13.2 - 16.6 g/dL 12/22/2022 12:45 PM CDT DTL Hematocrit 38.0(L) 38.3 - 48.6 % 12/22/2022 2:11 PM CDT DTL Erythrocytes 3.08(L) 4.35 - 5.65 x10(12)/L 12/22/2022 2:11 PM CDT DTL MCV 123.4(H) 78.2 - 97.9 fL 12/22/2022 2:11 PM CDT DTL RBC Distrib Width 15.5(H) 11.8 - 14.5 % 12/22/2022 12:45 PM CDT DTL Platelet Count 191 135 - 317 x10(9)/L 12/22/2022 12:45 PM CDT DTL Leukocytes 8.7 3.4 - 9.6 x10(9)/L 12/22/2022 12:45 PM CDT DTL Neutrophils 7.12(H) 1.56 - 6.45 x10(9)/L 12/22/2022 2:11 PM CDT DHPM Lymphocytes 0.58(L) 0.95 - 3.07 x10(9)/L 12/22/2022 2:11 PM CDT DTL Monocytes 0.88(H) 0.26 - 0.81 x10(9)/L 12/22/2022 2:11 PM CDT DTL Eosinophils 0.08 0.03 - 0.48 x10(9)/L 12/22/2022 2:11 PM CDT DTL Basophils 0.04 0.01 - 0.08 x10(9)/L 12/22/2022 2:11 PM CDT DTL Blood (Blood, Venous) 12/22/2022 12:00 PM CDT 12/22/2022 12:35 PM CDT Carson Fletcher M.D. LAB BLOOD ADD-ON [facility] [address] [place] [address], [facility] DTL [facility] [address] [place] [address] DHPM [facility] [address] [place] [address] * (ABNORMAL) ANCA (Antineutrophil Cytoplasmic Antibodies) Vasculitis Panel (12/22/2022 12:00 PM CDT) Myeloperoxidase Ab, S <0.2 <0.4 (Negative ) U 12/22/2022 6:58 PM CDT [facility] Proteinase 3 Ab (PR3), S 4.0(H) <0.4 (Negative ) U 12/22/2022 6:58 PM CDT [facility] Comment:Interpretation: Posi tive (>=1.0) Blood (Blood, Venous) 12/22/2022 12:00 PM CDT 12/22/2022 5:11 PM CDT Carson Fletcher M.D. LAB BLOOD ADD-ON Performing Organization Address [facility] Co de Phone Number [facility] [address] [place] [address] [facility] [address] [place] [address] * (ABNORMAL) CD20 on B Cells (12/22/2022 12:00 PM CDT) Pathologist [facility] CD45 Absolute 0.70(L) 1.00 - 3.33 thou/mcL 12/23/2022 11:22 PM CDT [facility] %CD19 B-Cells 0(L) 4.6 - 22.1 % 12/23/2022 11:22 PM CDT [facility] %CD20 B-Cells 0(L) 5.0 - 22.3 % 12/23/2022 11:22 PM CDT [facility] CD19 Absolute 0(L) 56.6 - 417.4 cells/mcL 12/23/2022 11:22 PM CDT [facility] CD20 Absolute 0(L) 74.4 - 441.1 cells/mcL 12/23/2022 11:22 PM CDT [facility] Comment: ----ADDITIONAL INFORMATION---- Reference values implemented June 20, 2008. This test was developed using an analyte specific reagent. Its performance characteristics were determined by [facility] in a manner consistent with CLIA requirements. This test has not been cleared or approved by the U.S. Food and Drug Administration. Blood (Blood, Venous) 12/22/2022 12:00 PM CDT 12/22/2022 3:35 PM CDT Carson Fletcher M.D. LAB BLOOD ADD-ON Performing Organization Address City/[facility]/ZIP Co de Phone Number [facility] [address] [place] [place] [address] [facility] [address] [place] [facility] 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
--- OUTSIDE RECORDS SUMMARY | 2023-04-25 19:03 | XMS_ITS | Encounter Summary ---
Author Name Unknown Organization [facility] Address [address] [place] [phone] Care Team Providers Care Sr Vice President Name Role Phone Elsewhere, Pcp Primary Care Provider Unavailabl e Reason for Visit * Reason Onset Date Comments Phone call 01/13/2023 Encounter Details Date Type Department Care Team ([facility] st Contact Info) Description 01/13/2023 Clinical Communication Department of Urology in [place], [place] [address] [place] [phone] Sushant Vicente M.D. [address] [place] [phone] Phone call Social History Tobacco Use Types Packs/Day Years [...] often do you attend chur ch or zoroastrian services? Patient declined 02/03/2022 Do you belong to any clubs o r organizations such as roman catholic groups, unions, fraternal or athletic groups, [...] 2 09/24/2021 [facility] Occupational [facility] Questionnaire Answer Date Recorded [...] place to sleep or slept in a long-term (including now)? No 02/03/2022 Nutrition Answer Date [...] encounter Miscellaneous Notes * Telephone Encounter - Zaira Miller APRN, C.N.P., M.S.N. - 01/15/2023 11:38 AM CDT I spoke with Mr. Gates via telephone. He presented to his local ED on 01/10 secondary to flank pain of uncertain etiology. 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 His WBCs were elevated. It was suspected that his flank pain wascaused by acute diverticulitis. He was initiated on ciprofloxacin and Flagyl and recommended to take Tylenol 1000 mg 3 times daily and or ibuprofen 600 mg every 8 hours for pain management. He was also given a small supply of hydromorphone. In addition, he was recommended to use stool softeners andor MiraLax if needed. It was also noted that his pain could be related to cancer spread to the ribs, bones, and back. I spoke with the patient today. He reports significant bone pain in his back, sternum, and left ribs rated 7/10, worse pain 10/10. His pain is worse with movement. He has difficulty finding a comfortable position for sleeping. He is currently taking Tylenol as needed. He is currently scheduled for follow-up with Dr. Vicente on March 09, 2023. We will see if we can reschedule his appointments to an earlier timeframe. Patient is in agreement with the plan. All questions answered to satisfaction. documented in this encounter Plan of Treatment Upcoming Encounters Date Type Department Care Team (Late st Contact Info) Description 04/26/2023 3:15 PM PLATE SHOP HELPER Appointment Department of Radiation Oncology in [address] [phone] Gurwinder Tejeda M.D. [address] [place] [phone] 05/03/2023 1:00 PM PLATE SHOP HELPER Appointment Department of Laboratory Medicine in [address] [phone] Carson Fletcher M.D. [address] [place] [phone] 05/03/2023 1:10 PM PLATE SHOP HELPER Appointment Department of Laboratory Medicine in [address] [phone] Carson Fletcher M.D. [address] [place] [phone] 2023 2:30 PM PLATE SHOP HELPER Virtual Visit Division of Pulmonary Medicine in [place], [place] [address] [place] [phone] Carson Fletcher M.D. [address] [place] [phone] 07/05/2023 11:20 AM CDT Lab Department of Laboratory Medicine and Pathology, [facility], in [place], [place] [address] [place] [phone] Kallie Rosales APRN, C.N.P., M.S. [address] [place] [phone] 07/05/2023 12:45 PM CDT Appointment Department of Radiology, [facility], in [place], [place] [address] [place] [phone] Kallie Rosales APRN, C.N.P., M.S. [address] [place] [phone] 07/06/2023 11:30 AM CDT Office Visit Department of Urology in [address] [phone] Sushant Vicente M.D. [address] [place] [phone] documented as of this encounter Visit Diagnoses Not on filedocumented in this encounter Additional Health Concerns Infection Onset Date Last Indicated Resolved Time Protective Environment 07/31/2022 07/31/2022 Assessment Noted Time PHQ-9 Depression Total Score: 2 10/13/19 14 10:45 AM CDT documented as of this encounter Care Teams Sr Vice President Relationship Specialty Start Date End Date Elsewhere, Pcp PCP - General Family Medicine 12/29/19 documented as of this encounter
--- OUTSIDE RECORDS SUMMARY | 2023-04-25 19:03 | XMS_ITS | Encounter Summary ---
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 [address] [place] [phone] [facility] Referral ID Status Reason Start Date Expiration Date Visits Re quested Visits Authorized [id number] Closed 08/04/2022 08/04/2023 1 1 Encounter Details Date Type Department Care Team (Latest Contact Info) Description 11/05/2022 11:51 AM CDT - 11/05/2022 11:59 PM CDT Hospital Encounter Department of Radiology, [facility], in [place], [place] [address] [place] [phone] Cristal Solis, ZUNILDA, C.N.P., M.S.N. 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 Patient declined 02/03/2022 Do you belong to any clubs o r organizations such as jainism groups, unions, fraternal or athletic groups, or [...] Answer Date Recorded PHQ-2 Score 2 09/24/2021 [facility] ional [facility] - Occupational Stress Questionnaire Answer Date [...] place to sleep or slept in a chcf (including now)? No 02/03/2022 Nutrition Answer Date [...] x 2, [address] [facility] on 06/10/2022 and 06/24/2022. 0 06/10/2022 sulfamethoxazole-trimet [...] st Contact Info) Description 04/26/2023 3:15 PM HOME HEALTH CLINICIAN Appointment Department of Radiation Oncology in [place], [place] [address] [place] [phone] Gurwinder Tejeda M.D. [address] [place] [phone] 05/03/2023 1:00 PM HOME HEALTH CLINICIAN Appointment Department of Laboratory Medicine in [address] [phone] Carson Fletcher M.D. [address] [place] [phone] 05/03/2023 1:10 PM HOME HEALTH CLINICIAN Appointment Department of Laboratory Medicine in [address] [phone] Carson Fletcher M.D. [address] [place] [phone] 2023 2:30 PM HOME HEALTH CLINICIAN Virtual Visit Division of Pulmonary Medicine in [place], [place] [address] [place] [phone] Carson Fletcher M.D. [address] [place] [phone] 07/05/2023 11:20 AM CDT Lab Department of Laboratory Medicine and Pathology, [facility] in [place], [place] [address] [place] [phone] Kallie Rosales, ZUNILDA, C.N.P., M.S. [address] [place] [phone] 07/05/2023 12:45 PM CDT Appointment Department of Radiology, [facility], in [place], [place] [address] [place] [address] Kallie Rosales APRN, C.N.P., M.S. [address] [place] [phone] 07/06/2023 11:30 AM CDT Office Visit Department of Urology in [place], [place] [address] [place] [phone] Sushant Vicente M.D. 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 ??Mild progression of osseous metastatic disease. 2. ??Mediastinal lymph nodes demonstrate persistent avidity, indeterminate for reactive inflammation versus metastases. Narrative 11/05/2022 5:15 PM CDT EXAM: ??PET CT CHOLINE RADIOPHARMACEUTICAL/MEDS: Route: intravenous choline C 11 injection (CHOLINE C-11),18.01 millicurie TECHNIQUE: ??C-11 Choline PET/CT scan was performed from the vertex through the thighs with low dose, non-contrast, free-breathing CT images for attenuation correction and anatomic localization (AC/AL), with imaging beginning at approximately 5 minutes after radiotracer injection. COMPARISON: ??Choline PET CT 08/03/2022 INDICATION: ??77-year-old male with history of metastatic prostate cancer status post prostatectomy, radiation, ADT, and chemotherapy. Interval ADT. Subsequent treatment strategy. Rising PSA: 9.8 ng/mL on 11/05/2022. The patient reports no recent vaccinations. FINDINGS: PROSTATE BED: No choline uptake to suggest locally recurrent disease. LYMPH NODES: A few mediastinal lymph nodes continue to demonstrate mild increased choline uptake, including the 7 x 11 mm right paratracheal lymph node (SUV max 4.4, previously 3) (image 108) and the 1.1 x 1.6 cm left precarinal lymph node (SUV max 3.6, previously 2.4) (image 111). Other low-grade choline avid prevascular lymph nodes are stable. No new choline avid lymph nodes. OSSEOUS DISEASE: Mildly increased uptake in several [...] (image 98), and posterior right iliac bone (SUV max 3.6, previously 1.9) (image 220). Similar choline uptake of T7 right pedicle (SUV max 3.8, previously 3.5) (image 121). OTHER METASTATIC DISEASE: None. Additional findings on the noncontrast low-dose CT: Bilateral peripheral lung scarring and fibrotic changes. Colonic diverticulosis. Advanced atherosclerotic arterial calcifications, including coronary arteries. Procedure Note Omero Bain M.D., Ph.D. - 11/05/2022 EXAM: PET CT CHOLINE RADIOPHARMACEUTICAL/MEDS: Route: intravenous choline C 11 injection (CHOLINE C-11),18.01 millicurie TECHNIQUE: C-11 Choline PET/CT scan was performed from the vertex throughthe thighs with low dose, non-contrast, free-breathing CT images for attenuation correction andanatomic localization (AC/AL), with imaging beginning at approximately 5 minutes after radiotracerinjection. COMPARISON: Choline PET CT 08/03/2022 INDICATION: 77-year-old male with history of metastatic prostate cancerstatus post prostatectomy, radiation, ADT, and chemotherapy. Interval ADT. Subsequent treatmentstrategy. Rising PSA: 9.8 ng/mL on 11/05/2022. The patient reports no recent vaccinations. FINDINGS: PROSTATE BED: No choline uptake to suggest locally recurrent disease. LYMPH NODES: A few mediastinal lymph nodes continue to demonstrate mildincreased choline uptake, including the 7 x 11 mm right paratracheal lymph node (SUV max 4.4,previously 3) (image 108) and the 1.1 x 1.6 cm left precarinal lymph node (SUV max 3.6, previously 2.4)(image 111). Other low-grade choline avid prevascular lymph nodes are stable. No new cholineavid lymph nodes. OSSEOUS DISEASE: Mildly increased uptake in several osseous lesions,including lower sternum with SUV max 4.5 (image 121), T11 spinous process lesion with SUV max 2.7(image 162), and posterior left iliac bone lesion with SUV max 3.1 (image 25), C3 vertebral body (SUV max3.3, previously 2.2) (image 63), T4 vertebral body (SUV max 4.4, previously 3) (image 98), andposterior right iliac bone (SUV max 3.6, previously 1.9) (image 220). Similar choline uptake of T1ynlzs pedicle (SUV max 3.8, previously 3.5) (image 121). OTHER METASTATIC DISEASE: None. Additional findings on the noncontrast low-dose CT: Bilateral peripherallung scarring and fibrotic changes. Colonic diverticulosis. Advanced atherosclerotic arterialcalcifications, including coronary arteries. IMPRESSION: 1. Mild progression of osseous metastatic disease. 2. Mediastinal lymph nodes demonstrate persistent avidity, indeterminatefor reactive inflammation versus metastases. Cristal Solis APRN, C.N.P., M.S.N. 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) documented in this encounter Administered Medications Inactive Administered Medications - up to 3 most recent administrations Medication Order MAR Action Action Date Dose Rate Site choline C 11 injection (CHOLINE C-11) 10-20 millicurie, intravenous, Once, On Eunice 11/05/22 at 1245, For 1 dose, Imaging Protocol Orders Given 11/05/2022 12:51 PM CDT 18.01 millicuries documented in this encounter Additional Health Concerns Infection Onset Date Last Indicated Resolved Time Protective Environment 07/31/2022 07/31/2022 Assessment Noted Time PHQ-9 Depression Total Score: 2 10/13/19 14 10:45 AM CDT documented as of this encounter Care Teams Shipping & Receiving Lead Relationship Specialty Start Date End Date Elsewhere, Pcp PCP - General Family Medicine 12/29/19 documented as of this encounter
--- OUTSIDE RECORDS SUMMARY | 2023-04-25 19:03 | XMS_ITS | Encounter Summary ---
Author Name Unknown Organization [facility] Address [address] [place] [id number] Care Team Providers Care Cotton Farmworker Name Role Phone Elsewhere, Pcp Primary Care Provider Unavailabl e Reason for Referral * Outpatient (Routine) - Authorized Specialty Diagnoses / Procedures Referred By Contac t Referred To Contact Urology Kallie Rosales APRN, C.N.P., M.S. [address] [place] [phone] Sushant Vicente M.D. [address] [place] [phone] Referral ID Status Reason Start Date Expiration Date V isits Requested Visits Authorized [id number] Authorized 11/06/2022 11/05/2025 1 1 Scheduling Instructions RTC after imaging and labs with Cinthia * MRI/CAT/PET Scan (Routine) - Authorized Specialty Diagnoses / Procedures Referred By Contac t Referred To Contact Diagnoses Primary Malignant Neoplasm Of Prostate (HCC) Rising Prostate Specific Antigen Following Treatment For Malignant Cancer Of Prostate Secondary Malignant Neoplasm Bone (HCC) Procedures PET CT [place] Kallie Rosales APRN, C.N.P., M.S. [address] [place] [phone] [facility] Referral ID Status Reason Start Date Expiration Date V isits Requested Visits Authorized [id number] Authorized 11/06/2022 11/06/2023 1 1 * Injectables (Routine) - Closed Specialty Diagnoses / Procedures Referred By Contac t Referred To Contact Diagnoses Primary Malignant Neoplasm Of Prostate (HCC) Rising Prostate Specific Antigen Following Treatment For Malignant Cancer Of Prostate Secondary Malignant Neoplasm Bone (HCC) Procedures URO Injection visit- leuprolide (lupron) Kallie Rosales APRN, C.N.P., M.S. [address] [place] [phone] [facility] Referral ID Status Reason Start Date Expiration Date Visits Re quested Visits Authorized [id number] Closed 11/06/2022 11/06/2023 1 1 Reason for Visit * Outpatient (Routine) - Closed Specialty Diagnoses / Procedures Referred By Contac t Referred To Contact Urology Cristal Solis APRN, C.N.Hiwot., M.S.N. [address] [place] [phone] Sushant Vicente M.D. [address] [place] [phone] Referral ID Status Reason Start Date Expiration Date Visits Re quested Visits Authorized [id number] Closed 08/04/2022 08/03/2025 1 1 Encounter Details Date Type Department Care Team (Late st Contact Info) Description 11/06/2022 10:30 AM CDT Office Visit Department of Urology in [place], [place] [address] [place] [phone] Sushant Vicente M.D. [address] [place] [phone] Primary Malignant Neoplasm Of Prostate (HCC) (Primary Dx); Rising Prostate Specific Antigen Following Treatment For Malignant Cancer Of Prostate; Secondary Malignant Neoplasm Bone (HCC) Social History [...] How often do you attend chur or scientologist services? Patient declined 02/03/2022 Do you belong to any clubs o r organizations such as sikh groups, unions, fraternal or athletic groups, or [...] Answer Date Recorded PHQ-2 Score 2 09/24/2021 [facility] - Occupational [...] as of this encounter Progress Notes * Kallie Rosales, ZUNILDA, C.N.P., M.S. - 11/06/2022 10:30 AM CDT SUBJECTIVE CHIEF COMPLAINT/REASON FOR VISIT Advanced prostate [...] beam radiation therapy with Dr. Cole at [place], [place] for a biochemical recurrence. 3. July [...] plus docetaxel chemotherapy through Dr. Mott at [place] [facility]. Notably, patient does have high tumor [...] with Olaparib or Keytruda secondary to [facility] results. 28. February 28, 2021: [...] month Lupron injection is due after 12/09/22. Notes lack of appetite and looser stools. Intermittent shortness of breath. 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 They plan to change his medical therapy to Rituximab from [employer]. He has had 2 cycles of Rituximab so far. OBJECTIVE LABORATORY Lab Results Component Value Date/Time PSA 9.8 (H) 11/05/2022 11:38 AM Lab Results Component Value Date/Time CREATININE 1.22 09/14/2022 09:06 AM CREATININE 0.82 02/28/2021 02:08 PM ALKPHOS 123 11/05/2022 11:38 AM ALKPHOS 123 02/28/2021 02:08 PM AST 21 11/05/2022 11:38 AM AST 33 09/23/2021 09:45 AM AST 32 12/31/2016 09:06 AM ALT 15 11/05/2022 11:38 AM BILITOT 0.5 11/05/2022 11:38 AM BILITOT 0.5 09/23/2021 09:45 AM BILIDIR <0.2 11/05/2022 11:[address] [place] Result Date: 11/05/2022 Impression: 1. Mild progression of osseous metastatic disease. 2. Mediastinal lymph nodes demonstrate persistent avidity, indeterminate for reactive inflammation versus metastases. ASSESSMENT / PLAN #1 Primary Malignant Neoplasm Of Prostate (HCC) #2 Rising Prostate Specific Antigen Following Treatment For Malignant Cancer Of Prostate #3 Secondary Malignant Neoplasm Bone (HCC) It was a pleasure to see Mr. Lashell Gates in clinic today. Together we reviewed and interpreted his recent imaging and labs. His PSA was noted to be 9.8. This is a decline from local lab from September 08, 2022 at 15.5. Alk phosphatase and liver enzymes were within normal limits. C11 PET choline scan demonstrated mild progression of osseous metastases. Mediastinal lymph nodes demonstrate persistent avidity, indeterminate for reactive inflammation versus metastases. Based on these findings and that the patient's PSA is starting to decline, Dr. Vicente discuss the patient is actually doing quite well and recommended he continue on his current treatment therapies of Lupron injections every 3 or 4 months, Olaparib, and Zytiga with prednisone as prescribed. Mr. Lashell Gates was instructed to return for follow up appointment in 4 months to perform thefollowing laboratory tests: PSA, Testosterone, Alkaline phosphatase, AST, ALT, Total Bilirubin, andDirect Bilirubin. In addition, Mr. Lashell Gates will undergo a [id number] PET to identify sites of prostate cancer relapse after failed treatment, per medical necessity and per FDA, NCCN and CMS guidelines. The patient will plan to return on December 22, 2022 for repeat three-month Lupron injection. All other questions were answered at the time of the visit. He is in agreement with this plan. I personally spent over half of a total 24 minutes in documentation, reviewing medical history: counseling and discussion with the patient and coordination of care as described above. Signed by: Kallie Rosales APRN, C.N.Hiwot., M.S. 11/06/2022 10:11 AM CDT documented in this encounter Plan of Treatment Upcoming Encounters Date Type Department Care Team (Late st Contact Info) Description 04/26/2023 3:15 PM P[employer]LTRY H[employer] LABORER Appointment Department of Radiation Oncology in [address] [phone] Gurwinder Tejeda M.D. [address] [place] [phone] 05/03/2023 1:00 PM POULTRY HATCH[employer] LABORER Appointment Department of Laboratory Medicine in [address] [phone] Carson Fletcher M.D. [address] [place] [phone] 05/03/2023 1:10 PM POULTRY HATCH[employer] LABORER Appointment Department of Laboratory Medicine in [address] [phone] Carson Fletcher M.D. [address] [place] [phone] 2023 2:30 PM P[employer]LTRY HATCHERY LABORER Virtual Visit Division of Pulmonary Medicine in [place], [place] [address] [place] [phone] Carson Fletcher M.D. [address] [place] [phone] 07/05/2023 11:20 AM CDT Lab Department of Laboratory Medicine and Pathology, [facility] in [place], [place] [address] [place] [phone] Kallie Rosales APRN, C.N.P., M.S. [address] [place] [phone] 07/05/2023 12:45 PM CDT Appointment Department of Radiology, [facility], in [place], [place] [address] [place] [phone] Kallie Rosales APRN, C.N.P., M.S. [address] [place] [phone] 07/06/2023 11:30 AM CDT Office Visit Department of Urology in [place], [place] [address] [place] [phone] Sushant Vicente M.D. [address] [place] [phone] Scheduled Orders Name Type Priority Associated Diagnoses Order Schedule URO Injection visit- leuprolide (lupron) Procedure Routine Primary Malignant Neoplasm Of Prostate (HCC) Rising Prostate Specific Antigen Following Treatment For Malignant Cancer Of Prostate Secondary Malignant Neoplasm Bone (HCC) Expected: 12/22/2022, Expires: 02/07/2024 Alkaline Phosphatase Lab Routine Primary Malignant Neoplasm Of Prostate (HCC) Rising Prostate Specific Antigen Following Treatment For Malignant Cancer Of Prostate Secondary Malignant Neoplasm Bone (HCC) Expected: 03/06/2023 (Approximate), Expires: 11/07/2023 ALT (Alanine Aminotransferase) Lab Routine Primary Malignant Neoplasm Of Prostate (HCC) Rising Prostate Specific Antigen Following Treatment For Malignant Cancer Of Prostate Secondary Malignant Neoplasm Bone (HCC) Expected: 03/06/2023 (Approximate), Expires: 11/07/2023 AST (Aspartate Aminotransferase) Lab Routine Primary Malignant Neoplasm Of Prostate (HCC) Rising Prostate Specific Antigen Following Treatment For Malignant Cancer Of Prostate Secondary Malignant Neoplasm Bone (HCC) Expected: 03/06/2023 (Approximate), Expires: 11/07/2023 Bilirubin, Total Lab Routine Primary Malignant Neoplasm Of Prostate (HCC) Rising Prostate Specific Antigen Following Treatment For Malignant Cancer Of Prostate Secondary Malignant Neoplasm Bone (HCC) Expected: 03/06/2023 (Approximate), Expires: 02/07/2024 Bilirubin, Direct Lab Routine Primary Malignant Neoplasm Of Prostate (HCC) Rising Prostate Specific Antigen Following Treatment For Malignant Cancer Of Prostate Secondary Malignant Neoplasm Bone (HCC) Expected: 03/06/2023 (Approximate), Expires: 02/07/[address] [place] Imaging RAD - Routine (most inpatients and all outpatients) Primary Malignant Neoplasm Of Prostate (HCC) Rising Prostate Specific Antigen Following Treatment For Malignant Cancer Of Prostate Secondary Malignant Neoplasm Bone (HCC) Expected: 03/06/2023 (Approximate), Expires: 11/07/2023 Potassium Lab Routine Primary Malignant Neoplasm Of Prostate (HCC) Rising Prostate Specific Antigen Following Treatment For Malignant Cancer Of Prostate Secondary Malignant Neoplasm Bone (HCC) Expected: 03/06/2023 (Approximate), Expires: 11/07/2023 PSA (Prostate-Specific Antigen), Diagnostic Lab Routine Primary Malignant Neoplasm Of Prostate (HCC) Rising Prostate Specific Antigen Following Treatment For Malignant Cancer Of Prostate Secondary Malignant Neoplasm Bone (HCC) Expected: 03/06/2023 (Approximate), Expires: 11/07/2023 Testosterone, Total by Mass Spectrometry, Serum Lab Routine Primary Malignant Neoplasm Of Prostate (HCC) Rising Prostate Specific Antigen Following Treatment For Malignant Cancer Of Prostate Secondary Malignant Neoplasm Bone (HCC) Expected: 03/06/2023 (Approximate), Expires: 11/07/2023 Scheduled Referrals Name Type Priority Associated Diagnoses Orde r Schedule Urology office visit (clinic) Outpatient Referral Routine Expected: 03/06/2023 (Approximate), Expires: 02/07/2024 documented as of this encounter Visit Diagnoses [...] documented as of this encounter Care Teams Cotton Farmworker Relationship Specialty Start Date End Date Elsewhere, Pcp PCP - General Family Medicine 12/29/19 documented as of this encounter
--- OUTSIDE RECORDS SUMMARY | 2023-04-25 19:03 | XMS_ITS | Encounter Summary ---
Author Name Unknown Organization [facility] Address [address] [place] [address] Care Team Providers Care Cobol Engineer Name Role Phone Elsewhere, Pcp Primary Care Provider Unavailabl e Reason for Visit * Outpatient (Routine) - Closed Specialty Diagnoses / Procedures Referred By Brittni t Referred To Contact Pulmonary Medicine Carson Fletcher M.D. [address] [place] [phone] [facility] Referral ID Status Reason Start Date Expiration Date Visits Re quested Visits Authorized [id number] Closed 09/14/2022 09/13/2025 1 1 Encounter Details Date Type Department Care Team (Latest Contact Info) Description 12/22/2022 2:00 PM CDT Office Visit Division of Pulmonary Medicine in [place], [place] [address] [place] [phone] Carson Fletcher M.D. 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 Patient declined 02/03/2022 Do you belong to any clubs o r organizations such as zoroastrianism groups, unions, fraternal or athletic groups, or [...] 2 09/24/2021 [facility] of Occupat ional Health - Occupational Stress [...] Sign Reading Time Taken Comments Blood Pressure 133/75 12/22/2022 1:50 PM CDT Pulse 81 12/22/2022 1:50 PM CDT Temperature 36.1 ??C (97 ??F) 12/22/2022 1:50 PM CDT Respiratory Rate - - Oxygen Saturation 97% 12/22/2022 1:50 PM CDT Inhaled Oxygen Concentration - - Weight 80.7 kg (177 lb 14.6 oz) 12/22/2022 1:50 PM CDT Height 171.6 cm (5' 7.56) 12/22/2022 1:50 PM CD T Body Mass Index 27.41 12/22/2022 1:50 PM CDT documented in this encounter Progress Notes * Carson Fletcher M.D. 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 He feels well. He has notnoticed any symptoms that would suggest worsening of his ILD, or any disease activity of his ANCA associated vasculitis. Laboratory test results show normal hemoglobin, white blood count and platelet count. There is macrocytosis which is undoubtedly related to his cancer therapies. Complete metabolic panel is within normal limits. CRP and ESR also normal. CD 20 B-cell counts are pending. The CT scan of the chest from October showed no significant GPA related lesions. He will return in February when he returns for his next urology visit. documented in this encounter Plan of Treatment Upcoming Encounters Date Type Department Care Team (Late st Contact Info) Description 04/26/2023 3:15 PM CERTIFIED OPHTHALMIC ASSISTANT Appointment Department of Radiation Oncology in [place], [place] [address] [place] [phone] Gurwinder Tejeda M.D. [address] [place] [phone] 05/03/2023 1:00 PM CERTIFIED OPHTHALMIC ASSISTANT Appointment Department of Laboratory Medicine in [address] [phone] Carson Fletcher M.D. [address] [place] [phone] 05/03/2023 1:10 PM CERTIFIED OPHTHALMIC ASSISTANT Appointment Department of Laboratory Medicine in [address] [phone] Carson Fletcher M.D. [address] [place] [phone] 2023 2:30 PM CERTIFIED OPHTHALMIC ASSISTANT Virtual Visit Division of Pulmonary Medicine in [address] [phone] Carson Fletcher M.D. [address] [place] [phone] 07/05/2023 11:20 AM CDT Lab Department of Laboratory Medicine and Pathology, [facility] in [address] [phone] Kallie Rosales APRN, C.N.P., M.S. [address] [place] [phone] 07/05/2023 12:45 PM CDT Appointment Department of Radiology, [facility], in [address] [phone] Kallie Rosales APRN, C.N.P., M.S. [address] [place] [phone] 07/06/2023 11:30 AM CDT Office Visit Department of Urology in [address] [phone] Sushant Vicente M.D. [address] [place] [phone] documented as of this encounter Results * (ABNORMAL) Urinalysis with Microscopic: Urine, Midstream (02/15/2023 1:20 PM CERTIFIED OPHTHALMIC ASSISTANT) Source Urine, Urine, Midstream 02/15/2023 1:20 PM CERTIFIED OPHTHALMIC ASSISTANT CNFL Clarity Clear Clear 02/15/2023 1:23 PM CERTIFIED OPHTHALMIC ASSISTANT CNFL Color Yellow 02/15/2023 1:23 PM CERTIFIED OPHTHALMIC ASSISTANT CNFL Comment: ----REFERENCE VALUE---- Colorless Yellow Cinthia Blood Moderate(A) Negative 02/15/2023 1:23 PM CERTIFIED OPHTHALMIC ASSISTANT CNFL Nitrite Negative Negative 02/15/2023 1:23 PM CERTIFIED OPHTHALMIC ASSISTANT CNFL Leukocyte Esterase Negative Negative 02/15/2023 1:23 PM CERTIFIED OPHTHALMIC ASSISTANT CNFL Protein 30(A) mg/dL 02/15/2023 1:23 PM CERTIFIED OPHTHALMIC ASSISTANT CNFL Comment: ----REFERENCE VALUE---- Negative Trace Glucose Negative Negative mg/dL 02/15/2023 1:23 PM CERTIFIED OPHTHALMIC ASSISTANT CNFL Ketones, QI(U) Trace(A) Negative mg/dL 02/15/2023 1:23 PM CERTIFIED OPHTHALMIC ASSISTANT CNFL Bilirubin Small(A) Negative 02/15/2023 1:23 PM CERTIFIED OPHTHALMIC ASSISTANT CNFL pH 5.5 5.0 - 8.0 02/15/2023 1:23 PM CERTIFIED OPHTHALMIC ASSISTANT CNFL Specific Luana 1.025 1.001 - 1.035 02/15/2023 1:23 PM CERTIFIED OPHTHALMIC ASSISTANT CNFL Urobilinogen 0.2 0.2 - 1.0 mg/dL 02/15/2023 1:23 PM CERTIFIED OPHTHALMIC ASSISTANT CNFL White Blood Cells None Seen /hpf 02/15/2023 1:40 PM CERTIFIED OPHTHALMIC ASSISTANT CNFL Comment: ----REFERENCE VALUE---- Males: 0-3 Females: 0-10 Unknown: 0-10 Red Blood Cells 3-10(A) 0 - 2 /hpf 1:40 PM CERTIFIED OPHTHALMIC ASSISTANT CNFL Dysmorphic Red Blood Cells <=25 <=25 % 02/15/2023 1:40 PM CERTIFIED OPHTHALMIC ASSISTANT CNFL Mucus Present /hpf 02/15/2023 1:40 PM CERTIFIED OPHTHALMIC ASSISTANT CNFL Squamous Cells Occ-3 /hpf 02/15/2023 1:40 PM CERTIFIED OPHTHALMIC ASSISTANT CNFL Bacteria None Seen None Seen 02/15/2023 1:40 PM CERTIFIED OPHTHALMIC ASSISTANT CNFL Urine (Urine, Midstream) 02/15/2023 1:20 PM CERTIFIED OPHTHALMIC ASSISTANT 02/15/2023 1:20 PM CERTIFIED OPHTHALMIC ASSISTANT Carson Fletcher M.D. LAB URINE ORDERABLES Performing Organization Address [facility] Co de Phone Number [facility] [address] [place] [phone], [facility] CNFL [facility] in [address] [address] * (ABNORMAL) CD20 on B Cells (02/15/2023 1:10 PM CERTIFIED OPHTHALMIC ASSISTANT) CD45 Absolute 0.40(L) 1.00 - 3.33 thou/mcL 02/17/2023 2:57 PM CERTIFIED OPHTHALMIC ASSISTANT SDSC %CD19 B-Cells 0(L) 4.6 - 22.1 % 02/17/2023 2:57 PM CERTIFIED OPHTHALMIC ASSISTANT SDSC %CD20 B-Cells 0(L) 5.0 - 22.3 % 02/17/2023 2:57 PM CERTIFIED OPHTHALMIC ASSISTANT SDSC CD19 Absolute 0(L) 56.6 - 417.4 cells/mcL 02/17/2023 2:57 PM CERTIFIED OPHTHALMIC ASSISTANT SDSC CD20 Absolute 0(L) 74.4 - 441.1 cells/mcL 02/17/2023 2:57 PM CERTIFIED OPHTHALMIC ASSISTANT SDSC Comment: ----ADDITIONAL INFORMATION---- Reference values implemented June 20, 2008. This test was developed using an analyte specific reagent. Its performance characteristics were determined by [facility] in a manner consistent with CLIA requirements. This test has not been cleared or approved by the U.S. Food and Drug Administration. Blood (Blood, Venous) 02/15/2023 1:10 PM CERTIFIED OPHTHALMIC ASSISTANT 02/16/2023 8:27 AM CERTIFIED OPHTHALMIC ASSISTANT Carson Fletcher M.D. LAB BLOOD ADD-ON Performing Organization Address City/[facility]/ZIP Co de Phone Number [facility] [address] [place] [address] [facility] [address] [place] [address] [place] [address] * (ABNORMAL) Uric Acid (02/15/2023 1:10 PM CERTIFIED OPHTHALMIC ASSISTANT) Uric Acid, P 3.3(L) 3.7 - 8.0 mg/dL 02/15/2023 1:33 PM CERTIFIED OPHTHALMIC ASSISTANT CNFL Blood (Blood, Venous) 02/15/2023 1:10 PM CERTIFIED OPHTHALMIC ASSISTANT 02/15/2023 1:12 PM CERTIFIED OPHTHALMIC ASSISTANT Carson Fletcher M.D. LAB BLOOD ADD-ON Performing Organization Address City/[facility] Co de Phone Number [facility] [address] [place] [address], [place] [address] * Phosphorus Inorganic (02/15/2023 1:10 PM CERTIFIED OPHTHALMIC ASSISTANT) Pathologist [facility], [place] Phosphorus (Inorganic), P 3.7 2.5 - 4.5 mg/dL 02/15/2023 1:33 PM CERTIFIED OPHTHALMIC ASSISTANT CNFL Blood (Blood, Venous) 02/15/2023 1:10 PM CERTIFIED OPHTHALMIC ASSISTANT 02/15/2023 1:12 PM CERTIFIED OPHTHALMIC ASSISTANT Carson Fletcher M.D. LAB BLOOD ADD-ON Performing Organization Address City/[facility] Co de Phone Number [facility] [address] [place] [address], [place] [address] * (ABNORMAL) Glucose, Fasting (02/15/2023 1:10 PM CERTIFIED OPHTHALMIC ASSISTANT) Glucose, P 117(H) 70 - 100 mg/dL 02/15/2023 1:29 PM CERTIFIED OPHTHALMIC ASSISTANT CNFL Last Intake 10 hr 02/15/2023 1:12 PM CERTIFIED OPHTHALMIC ASSISTANT CNFL Blood (Blood, Venous) 02/15/2023 1:10 PM CERTIFIED OPHTHALMIC ASSISTANT 02/15/2023 1:12 PM CERTIFIED OPHTHALMIC ASSISTANT Carson Fletcher M.D. LAB BLOOD NON ADD-ON [facility] [address] [place] [address], [place] CNFL [facility] in [address] [address] * (ABNORMAL) Sedimentation Rate (02/15/2023 1:10 PM CERTIFIED OPHTHALMIC ASSISTANT) Sedimentation Rate, B 26(H) 0 - 22 mm/1 h 02/15/2023 7:56 PM CERTIFIED OPHTHALMIC ASSISTANT RDWG Blood (Blood, Venous) 02/15/2023 1:10 PM CERTIFIED OPHTHALMIC ASSISTANT 02/15/2023 7:22 PM CERTIFIED OPHTHALMIC ASSISTANT Carson Fletcher M.D. LAB BLOOD ADD-ON [facility] [address] [place] [address], [facility] RDWG [facility] in [place] [address] [place] [address], [place] [phone] * CRP (C-Reactive Protein) (02/15/2023 1:10 PM CERTIFIED OPHTHALMIC ASSISTANT) C-Reactive Protein (CRP), P 4.2 <5.0 mg/L 02/15/2023 1:33 PM CERTIFIED OPHTHALMIC ASSISTANT CNFL Blood (Blood, Venous) 02/15/2023 1:10 PM CERTIFIED OPHTHALMIC ASSISTANT 02/15/2023 1:12 PM CERTIFIED OPHTHALMIC ASSISTANT Carson Fletcher M.D. LAB BLOOD ADD-ON [facility] [address] [place] [address], [place] CNFL [facility] in [address] [address] * Comprehensive Metabolic Panel (02/15/2023 1:10 PM CERTIFIED OPHTHALMIC ASSISTANT) Potassium, P 3.9 3.6 - 5.2 mmol/L 02/15/2023 1:33 PM CERTIFIED OPHTHALMIC ASSISTANT CNFL Sodium, P 139 135 - 145 mmol/L 02/15/2023 1:33 PM CERTIFIED OPHTHALMIC ASSISTANT CNFL Chloride, P 101 98 - 107 mmol/L 02/15/2023 1:33 PM CERTIFIED OPHTHALMIC ASSISTANT CNFL Bicarbonate, P 27 22 - 29 mmol/L 02/15/2023 1:33 PM CERTIFIED OPHTHALMIC ASSISTANT CNFL Anion Gap, P 11 7 - 15 02/15/2023 1:33 PM CERTIFIED OPHTHALMIC ASSISTANT CNFL BUN (Blood Urea Nitrogen), P 16 8 - 24 mg/dL 02/15/2023 1:33 PM CERTIFIED OPHTHALMIC ASSISTANT CNFL Creatinine 0.98 0.74 - 1.35 mg/dL 02/15/2023 1:33 PM CERTIFIED OPHTHALMIC ASSISTANT CNFL Estimated GFR (eGFR) 78 >=60 mL/min/BS A 02/15/2023 1:33 PM CERTIFIED OPHTHALMIC ASSISTANT CNFL Comment: Estimated GFR calculated using the 2020 CKD_EPI creatinine equation. Calcium, Total, P 9.2 8.8 - 10.2 mg/dL 02/15/2023 1:33 PM CERTIFIED OPHTHALMIC ASSISTANT CNFL Glucose, P CANCELED mg/dL 02/15/2023 1:12 PM CERTIFIED OPHTHALMIC ASSISTANT CNFL Comment: Duplicate test request. Result canceled by the ancillary. Protein, Total, P 6.6 6.3 - 7.9 g/dL 02/15/2023 1:33 PM CERTIFIED OPHTHALMIC ASSISTANT CNFL Albumin, P 4.1 3.5 - 5.0 g/dL 02/15/2023 1:33 PM CERTIFIED OPHTHALMIC ASSISTANT CNFL Aspartate Aminotransferase (AST), P 19 8 - 48 U/L 02/15/2023 1:33 PM CERTIFIED OPHTHALMIC ASSISTANT CNFL Alkaline Phosphatase, P 120 40 - 129 U/L 02/15/2023 1:33 PM CERTIFIED OPHTHALMIC ASSISTANT CNFL Alanine Aminotransferase (ALT), P 13 7 - 55 U/L 02/15/2023 1:33 PM CERTIFIED OPHTHALMIC ASSISTANT CNFL Bilirubin, Total, P 0.4 0.0 - 1.2 mg/dL 02/15/2023 1:33 PM CERTIFIED OPHTHALMIC ASSISTANT CNFL Blood (Blood, Venous) 02/15/2023 1:10 PM CERTIFIED OPHTHALMIC ASSISTANT 02/15/2023 1:12 PM CERTIFIED OPHTHALMIC ASSISTANT Carson Fletcher M.D. LAB BLOOD ADD-ON [facility] [address] [place] [address], [facility] CNFL [facility] in [address] [address] * (ABNORMAL) CBC with Differential, Blood (02/15/2023 1:10 PM CERTIFIED OPHTHALMIC ASSISTANT) Hemoglobin 12.9(L) 13.2 - 16.6 g/dL 02/15/2023 2:13 PM CERTIFIED OPHTHALMIC ASSISTANT CNFL Hematocrit 36.2(L) 38.3 - 48.6 % 02/15/2023 2:13 PM CERTIFIED OPHTHALMIC ASSISTANT CNFL Erythrocytes 2.98(L) 4.35 - 5.65 x10(12)/L 02/15/2023 2:13 PM CERTIFIED OPHTHALMIC ASSISTANT CNFL MCV 121.5(H) 78.2 - 97.9 fL 02/15/2023 2:13 PM CERTIFIED OPHTHALMIC ASSISTANT CNFL RBC Distrib Width 14.3 11.8 - 14.5 % 02/15/2023 2:13 PM CERTIFIED OPHTHALMIC ASSISTANT CNFL Platelet Count 142 135 - 317 x10(9)/L 02/15/2023 2:13 PM CERTIFIED OPHTHALMIC ASSISTANT CNFL Leukocytes 6.6 3.4 - 9.6 x10(9)/L 02/15/2023 2:13 PM CERTIFIED OPHTHALMIC ASSISTANT CNFL Neutrophils 5.52 1.56 - 6.45 x10(9)/L 02/15/2023 2:13 PM CERTIFIED OPHTHALMIC ASSISTANT CNFL Lymphocytes 0.38(L) 0.95 - 3.07 x10(9)/L 02/15/2023 2:13 PM CERTIFIED OPHTHALMIC ASSISTANT CNFL Monocytes 0.65 0.26 - 0.81 x10(9)/L 02/15/2023 2:13 PM CERTIFIED OPHTHALMIC ASSISTANT CNFL Eosinophils 0.06 0.03 - 0.48 x10(9)/L 02/15/2023 2:13 PM CERTIFIED OPHTHALMIC ASSISTANT CNFL Basophils <0.04 0.01 - 0.08 x10(9)/L 02/15/2023 2:13 PM CERTIFIED OPHTHALMIC ASSISTANT CNFL Blood (Blood, Venous) 02/15/2023 1:10 PM CERTIFIED OPHTHALMIC ASSISTANT 02/15/2023 1:12 PM CERTIFIED OPHTHALMIC ASSISTANT Carson Fletcher M.D. LAB BLOOD ADD-ON Performing Organization Address City/[facility]/ZIP Co de Phone Number [facility] [address] [place] [address], [facility] CNFL [facility] in [address] [address] * (ABNORMAL) ANCA (Antineutrophil Cytoplasmic Antibodies) Vasculitis Panel (02/15/2023 1:10 PM CERTIFIED OPHTHALMIC ASSISTANT) Myeloperoxidase Ab, S <0.2 <0.4 (Negative ) U 02/16/2023 4:29 PM CERTIFIED OPHTHALMIC ASSISTANT SDSC Proteinase 3 Ab (PR3), S 3.0(H) <0.4 (Negative ) U 02/16/2023 4:29 PM CERTIFIED OPHTHALMIC ASSISTANT [facility] Comment:Interpretation: Posi tive (>=1.0) Blood (Blood, Venous) 02/15/2023 1:10 PM CERTIFIED OPHTHALMIC ASSISTANT 02/16/2023 7:10 AM CERTIFIED OPHTHALMIC ASSISTANT Carson Fletcher M.D. LAB BLOOD ADD-ON [facility] [address] [place] [address] [facility] [address] 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
--- OUTSIDE RECORDS SUMMARY | 2023-04-25 19:03 | XMS_ITS | Encounter Summary ---
Author Name Unknown Organization [facility] Address [address] [place] [address] Care Team Providers Care Manager Of Administration Name Role Phone Elsewhere, Pcp Primary Care Provider Unavailabl e Reason for Visit * Injectables (Routine) - Closed Specialty Diagnoses / Procedures Referred By Brittni t Referred To Contact Diagnoses Primary Malignant Neoplasm Of Prostate (HCC) Rising Prostate Specific Antigen Following Treatment For Malignant Cancer Of Prostate Secondary Malignant Neoplasm Bone (HCC) Procedures URO Injection visit- leuprolide (lupron) Kallie Rosales APRN, C.N.P., M.S. [address] [place] [phone] [facility] Referral ID Status Reason Start Date Expiration Date Visits Re quested Visits Authorized [id number] Closed 11/06/2022 11/06/2023 1 1 Encounter Details Date Type Department Care Team (Latest Contact Info) Description 12/22/2022 11:30 AM CDT Clinical Support Department of Urology in [place], [place] [address] [place] [phone] Kallie Rosales APRN, C.N.P., M.S. [address] [place] [phone] Echo Francisco L.P.N. [address] [place] [phone] Primary Malignant Neoplasm Of Prostate (HCC) (Primary [...] week 02/03/2022 How often do you attend [facility] or congregational services? Patient declined 02/03/2022 Do you belong [...] 2 09/24/2021 [facility] of Occupat ional Health - [...] place to sleep or slept in a senior care (including now)? No 02/03/2022 Nutrition Answer Date [...] as of this encounter Progress Notes * Echo Francisco L.P.N. - 12/22/2022 11:30 AM CDT CHIEF COMPLAINT Lupron 22.5 mg(3 month) Mr. Lashell Gates is here for a Lupron 22.5 mg(3 month) . See MAR for full medication and administration details. Lashell Gates reports: no negative side effects from medication. He was educated on: date when next injection is needed. Next injection due after 03/16/2023 Injection was given in: right dorsogluteal documented in this encounter Plan of Treatment Upcoming Encounters Date Type Department Care Team (Late st Contact Info) Description 04/26/2023 3:15 PM WATER TEAM LEADER Appointment Department of Radiation Oncology in [place] [phone] [place] [phone] Gurwinder Tejeda M.D. [address] [place] [phone] 05/03/2023 1:00 PM WATER TEAM LEADER Appointment Department of Laboratory Medicine in [address] [phone] Carson Fletcher M.D. [address] [place] [phone] 05/03/2023 1:10 PM WATER TEAM LEADER Appointment Department of Laboratory Medicine in [address] [phone] Carson Fletcher M.D. [address] [place] [phone] 2023 2:30 PM WATER TEAM LEADER Virtual Visit Division of Pulmonary Medicine in [place], [place] [address] [place] [phone] Carson Fletcher M.D. [address] [place] [phone] 07/05/2023 11:20 AM CDT Lab Department of Laboratory Medicine and Pathology, [facility] in [place], [place] [address] [place] [phone] Kallie Rosales APRN, C.N.P., M.S. [address] [place] [phone] 07/05/2023 12:45 PM CDT Appointment Department of Radiology, [facility] in [place], [place] [address] [place] [phone] Kallie Rosales APRN, C.N.P., M.S. [address] [place] [phone] 07/06/2023 11:30 AM CDT Office Visit Department of Urology in [place], [place] [address] [place] [phone] Sushant Vicente M.D. [address] [place] [phone] documented as of this encounter Visit Diagnoses Diagnosis Primary Malignant Neoplasm Of Prostate (HCC)- Primary Rising Prostate Specific Antigen Following Treatment For Malignant Cancer Of Prostate Secondary Malignant Neoplasm Bone (HCC) documented in this encounter Administered Medications Inactive Administered Medications - up to 3 most recent administrations Medication Order MAR Action Action Date Dose Rate Site leuprolide (3 month) injection 22.5 mg (LUPRON) 22.5 mg, intramuscular, Once, On Wed12/22/22 at 0000, For 1 dose Given 12/22/2022 11:31 AM CDT 22.5 mg Right Dorsogluteal documented in this encounter Additional Health Concerns Infection Onset Date Last Indicated Resolved Time Protective Environment 07/31/2022 07/31/2022 Assessment Noted Time PHQ-9 Depression Total Score: 2 10/13/19 14 10:45 AM CDT documented as of this encounter Care Teams Manager Of Administration Relationship Specialty Start Date End Date Elsewhere, Pcp PCP - General Family Medicine 12/29/19 documented as of this encounter
--- NOTE | 2023-04-25 19:04 | CRLHL7_ITS ---
For Patients: As a result of the Century Cures Act, medical imaging exams and procedure reports are released immediately into your electronic medical record. You may view this report before your referring provider. If you have questions, please contact your health care provider. INDICATION: Transaminitis. TECHNIQUE: Ultrasound abdomen limited. Sonographic images of the right upper quadrant were obtained using marrero-scale and color Doppler images. COMPARISON: CT chest abdomen pelvis 01/10/2023. FINDINGS: Liver: Normal in size and echotexture. No suspicious masses. No intrahepatic biliary dilatation. Portal vein is patent with blood flow toward the liver. Gallbladder: Biliary sludge. No cholelithiasis. Normal wall thickness. No pericholecystic fluid. No sonographic Mitchell`s sign. Common bile duct: 9 mm. Pancreas: Partially visualized pancreas appears within normal limits. Right kidney: Normal in size. Mildly increased echogenicity of the renal parenchyma. No suspicious masses, stones, or hydronephrosis. Vasculature: Proximal abdominal aorta and IVC are unremarkable. IMPRESSION: 1. No cholelithiasis. Biliary sludge and mildly distended common bile duct without other convincing evidence of acute cholecystitis. Consider further evaluation with MRCP or nuclear medicine HIDA scan. 2. Mildly increased echogenicity of the renal parenchyma, suggestive of medical renal disease. Dictated by Zoran Tabares MD @ 04/25/2023 8:43:07 PM (Electronically Signed)
--- OUTSIDE RECORDS SUMMARY | 2023-04-25 19:04 | XMS_ITS | Encounter Summary ---
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 [address] [place] [address] 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 [address] [place] [address] [facility] [place] Referral ID Status Reason Start Date Expiration Date Visits Re quested Visits Authorized [id number] Closed 06/17/2022 06/17/2023 1 1 Encounter Details Date Type Department Care Team (Latest Contact Info) Description 09/14/2022 10:12 AM CDT - 09/14/2022 11:59 PM CDT Hospital Encounter Department of Radiology, [facility] in [place], [place] [address] [place] [address] Carson Fletcher M.D. 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 Patient declined 02/03/2022 Do you belong [...] PHQ-2 Score 2 09/24/2021 [facility] - Occupational Stress Questionnaire Answer Date [...] Take 81 mg by mouth daily. 0 atorvastatin (LIPITOR) 40 mg tablet Take 1 tablet (40 mg total) by mouth daily. 90 tablet 3 09/24/2021 cholecalciferol (for_VITAMIN D3) 2,000 Unit capsule Take [...] 2, [address] [facility] on 06/10/2022 and 06/24/2022. 0 06/10/2022 [...] st Contact Info) Description 04/26/2023 3:15 PM SPOOL MAKER Appointment Department of Radiation Oncology in [place] [id number] [place] [address] Gurwinder Tejeda M.D. [address] [place] [phone] 05/03/2023 1:00 PM SPOOL MAKER Appointment Department of Laboratory Medicine in [address] [phone] Carson Fletcher M.D. [address] [place] [phone] 05/03/2023 1:10 PM SPOOL MAKER Appointment Department of Laboratory Medicine in [address] [phone] Carson Fletcher M.D. [address] [place] [phone] 2023 2:30 PM SPOOL MAKER Virtual Visit Division of Pulmonary Medicine in [place], [place] [address] [place] [phone] Carson Fletcher M.D. [address] [place] [phone] 07/05/2023 11:20 AM CDT Lab Department of Laboratory Medicine and Pathology, [place], [place] [address] [place] [phone] Kallie Rosales APRN, C.N.P., M.S. [address] [place] [phone] 07/05/2023 12:45 PM CDT Appointment Department of Radiology, [facility], in [place], [place] [address] [place] [phone] Kallie Rosales APRN, C.N.P., M.S. [address] [place] [phone] 07/06/2023 11:30 AM CDT Office Visit Department of Urology in [place], [place] [address] [place] [address] Sushant Vicente M.D. 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 Numerous new ill-defined nodular opacities bilaterally are indeterminate, possibly infectious/inflammatory, related to known vasculitis, or metastatic given history of prostate cancer. Close continued CT surveillance is recommended. 2.Persistent but improved appearance of bilateral peripheral consolidative airspace opacities with resolved cavitations in these lesions, likely related to known vasculitis. 3. Decrease in size of a few pulmonary nodules or decreased/resolved cavitary components of additional ??pulmonary nodules. 4. Additional findings as discussed in the body of the report. Narrative 09/14/2022 12:01 PM CDT EXAM: CT CHEST WITHOUT IV CONTRAST COMPARISON: CT chest 03/17/2022. FINDINGS: Bronchial wall thickening. There are numerous new ill-defined nodular opacities bilaterally such as a 6 mm nodule in the right upper lobe (series 3/image 77), an irregular 6 mm nodule in the right upper lobe (image 111), and a 3 mm nodule in the left lower lobe (image 274). Persistent but improved appearance of bilateral peripheral consolidative airspace opacities with resolved cavitations in these lesions such as in the right upper lobe (image 178) now measuring approximately 28 x 7 mm versus 86 x 29 mm the prior exam. ??There is also decreased size of a few smaller pulmonary nodules since the prior exam such as a 4 mm nodule in the right middle lobe (image 380) previously measuring 6 mm. There has also been interval resolution or decrease in prominence of of the cavitary component of pulmonary nodules such as a 5 mm nodule in the left lower lobe (image 425) with resolution of the cavitary component. Few additional nodules are stable. No substantial change in the peripheral and basilar predominant pulmonary fibrosis. Upper lung predominant pulmonary emphysema. No pleural effusion. Stable mildly enlarged and prominent thoracic lymph nodes such as a 11 mm lymph node (image 224). Mild aortic valve calcifications which may be seen aortic stenosis. Mild calcifications of the thoracic arch branch vessels. Severe coronary artery calcifications. Mild bilateral gynecomastia (left greater than right).Stable sclerotic foci in the in the axial and appendicular skeleton such as in the right 4th rib and in the sternum. Compression deformity of the T4 vertebral body is again noted. Degenerative changes of the spine. This examination was performed in conjunction with a CT of the abdomen, which will be reported separately. ?? 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
--- OUTSIDE RECORDS SUMMARY | 2023-04-25 19:04 | XMS_ITS | Encounter Summary ---
Author Name Unknown Organization [facility] Address [address] [place] [address] Care Team Providers Care Tram Inspector Name Role Phone Elsewhere, Pcp Primary Care Provider Unavailabl e Reason for Visit * Reason Onset Date Comments Pre-visit Intake 09/11/2022 Encounter Details Date Type Department Care Team (Latest Contact Info) Description 09/11/2022 10:00 AM CDT Clinical Communication Virtual Review in [place], [place] [address] [place] [address] Pre-visit Intake Social History Tobacco Use Types Packs/Day Years [...] How often do you attend chur or jainism services? Patient declined 02/03/2022 Do you belong to any clubs o r organizations such as moravian groups, unions, fraternal or athletic groups, or [...] st Contact Info) Description 04/26/2023 3:15 PM LIBRARY CUSTOMER SERVICE CLERK Appointment Department of Radiation Oncology in [place], [place] [address] [place] [phone] Gurwinder Tejeda M.D. [address] [place] [phone] 05/03/2023 1:00 PM LIBRARY CUSTOMER SERVICE CLERK Appointment Department of Laboratory Medicine in [address] [phone] Carson Fletcher M.D. [address] [place] [phone] 05/03/2023 1:10 PM LIBRARY CUSTOMER SERVICE CLERK Appointment Department of Laboratory Medicine in [address] [phone] Carson Fletcher M.D. [address] [place] [phone] 2023 2:30 PM LIBRARY CUSTOMER SERVICE CLERK Virtual Visit Division of Pulmonary Medicine in [place], [place] [address] [place] [phone] Carson Fletcher M.D. [address] [place] [phone] 07/05/2023 11:20 AM CDT Lab Department of Laboratory Medicine and Pathology, [facility] in [place], [place] [address] [place] [phone] Kallie Rosales APRN, C.N.P., M.S. [address] [place] [phone] 07/05/2023 12:45 PM CDT Appointment Department of Radiology, [facility] in [place], [place] [address] [place] [phone] Kallie Rosales APRN, C.N.P., M.S. [address] [place] [phone] 07/06/2023 11:30 AM CDT Office Visit Department of Urology in [place], [place] [address] [place] [address] Sushant Vicente M.D. [address] [place] [phone] documented as of this encounter Visit Diagnoses Not on filedocumented in this encounter Additional Health Concerns Infection Onset Date Last Indicated Resolved Time Protective Environment 07/31/2022 07/31/2022 Assessment Noted Time PHQ-9 Depression Total Score: 2 10/13/19 14 10:45 AM CDT documented as of this encounter Care Teams Tram Inspector Relationship Specialty Start Date End Date Elsewhere, Pcp PCP - General Family Medicine 12/29/19 documented as of this encounter
--- OUTSIDE RECORDS SUMMARY | 2023-04-25 19:04 | XMS_ITS | Encounter Summary ---
Author Name Unknown Organization [facility] Address [address] [place] [address] Care Team Providers Care Tax Representative Name Role Phone Elsewhere, Pcp Primary Care Provider Unavailabl e Reason for Visit * Reason Onset Date Comments Pre-visit Testing Orders 10/06/2022 Encounter Details Date Type Department Care Team (Latest Contact Info) Description 10/06/2022 Clinical Communication Division of Pulmonary Medicine in [place], [place] [address] [place] [phone] Carson Fletcher M.D. [address] [place] [phone] Pre-visit Testing Orders Social History Tobacco Use Types Packs/Day [...] often do you attend chur ch or anglican services? Patient declined 02/03/2022 Do you belong to any clubs o r organizations such as sabianist groups, unions, fraternal or athletic groups, or [...] 09/24/2021 [facility] - Occupational Stress Questionnaire Answer Date [...] st Contact Info) Description 04/26/2023 3:15 PM STRETCHER LEVELER OPERATOR Appointment Department of Radiation Oncology in [place], [place] [address] [place] [phone] Gurwinder Tejeda M.D. [address] [place] [phone] 05/03/2023 1:00 PM STRETCHER LEVELER OPERATOR Appointment Department of Laboratory Medicine in [address] [phone] Carson Fletcher M.D. [address] [place] [phone] 05/03/2023 1:10 PM STRETCHER LEVELER OPERATOR Appointment Department of Laboratory Medicine in [address] [phone] Carson Fletcher M.D. [address] [place] [phone] 2023 2:30 PM STRETCHER LEVELER OPERATOR Virtual Visit Division of Pulmonary Medicine in [address] [phone] Carson Fletcher M.D. [address] [place] [phone] 07/05/2023 11:20 AM CDT Lab Department of Laboratory Medicine and Pathology, [facility] in [place], [place] [address] [place] [phone] Kallie Rosales APRN, C.N.P., M.S. [address] [place] [phone] 07/05/2023 12:45 PM CDT Appointment Department of Radiology, [facility] in [place], [place] [address] [place] [phone] Kallie Rosales APRN, C.N.P., M.S. [address] [place] [phone] 07/06/2023 11:30 AM CDT Office Visit Department of Urology in [place], [place] [address] [place] [phone] Sushant Vicente M.D. [address] [place] [phone] documented as of this encounter Results * Immunoglobulin G (IgG) (12/22/2022 12:00 PM CDT) Immunoglobulin G (IgG), S 863 767 - 1590 mg/dL 12/22/2022 5:34 PM CDT [facility] Blood (Blood, Venous) 12/22/2022 12:00 PM CDT 12/22/2022 5:07 PM CDT Carson Fletcher M.D. LAB BLOOD ADD-ON [facility] [address] [place] [address] [facility] [address] [place] [address] * (ABNORMAL) Uric Acid (12/22/2022 12:00 PM CDT) Pathologist [facility] Uric Acid, S 3.5(L) 3.7 - 8.0 mg/dL 12/22/2022 1:11 PM CDT [facility] Blood (Blood, Venous) 12/22/2022 12:00 PM CDT 12/22/2022 12:49 PM CDT Carson Fletcher M.D. LAB BLOOD ADD-ON [facility] 200 [place] [address], [facility] [place] [address] [place] [address] * Phosphorus Inorganic (12/22/2022 12:00 PM CDT) Phosphorus (Inorganic), S 3.5 2.5 - 4.5 mg/dL 12/22/2022 1:11 PM CDT DT Blood (Blood, Venous) 12/22/2022 12:00 PM CDT 12/22/2022 12:49 PM CDT Carson Fletcher M.D. LAB BLOOD ADD-ON [facility] [address] [place] [address], [facility] 200 [place] [address] * Glucose, Fasting (12/22/2022 12:00 PM CDT) Glucose, P 91 70 - 100 mg/dL 12/22/2022 1:04 PM CDT DTL Last Intake 18 hr 12/22/2022 12:48 PM CDT DTL Blood (Blood, Venous) 12/22/2022 12:00 PM CDT 12/22/2022 12:48 PM CDT Carson Fletcher M.D. LAB BLOOD NON ADD-ON Performing Organization Address City/[facility]/ZIP Co de Phone Number [facility] [address] [place], [place] [address] 200 [place] [address] * CRP (C-Reactive Protein) (12/22/2022 12:00 PM CDT) Pathologist [facility] C-Reactive Protein (CRP), S <3.0 <5.0 mg/L 12/22/2022 1:11 PM CDT DTL Blood (Blood, Venous) 12/22/2022 12:00 PM CDT 12/22/2022 12:49 PM CDT Carson Fletcher M.D. LAB BLOOD ADD-ON Performing Organization Address City/[facility]/ZIP Co de Phone Number [facility] [address] [place], [place] [phone] [place] [address] 200 [place] [address] * Sedimentation Rate (12/22/2022 12:00 PM CDT) Sedimentation Rate, B 26 3 - 28 mm/h 12/22/2022 1:57 PM CDT DTL Blood (Blood, Venous) 12/22/2022 12:00 PM CDT 12/22/2022 12:35 PM CDT Carson Fletcher M.D. LAB BLOOD ADD-ON [facility] [address] [place] [address], [facility] DTL 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
--- OUTSIDE RECORDS SUMMARY | 2023-04-25 19:04 | XMS_ITS | Encounter Summary ---
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 [address] [place] [phone] [facility] Referral ID Status Reason Start Date Expiration Date Visits Re quested Visits Authorized [id number] Closed 08/04/2022 08/04/2023 1 1 Encounter Details Date Type Department Care Team (Latest Contact Info) Description 09/14/2022 11:15 AM CDT Clinical Support Department of Urology in [place], [place] [address] [place] [phone] Cristal Solis APRN, C.N.P., M.S.N. 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 Patient declined 02/03/2022 Do you belong to any clubs o r organizations such as sikhism groups, unions, fraternal or athletic groups, or [...] Score 2 09/24/2021 [facility] - Occupational Stress Questionnaire Answer [...] as of this encounter Progress Notes * Roxanne Moore L.P.N. - 09/14/2022 11:15 AM CDT CHIEF COMPLAINT Lupron 22.5 mg(3 month) Mr. Lashell Gates is here for a Lupron 22.5 mg(3 month) . See MAR for full medication and administration details. Lashell Gates reports: hot flashes. He was educated on: date when next injection is needed. Next injection due after 12/09/2022 Injection was given in: left dorsogluteal documented in this encounter Plan of Treatment Upcoming Encounters Date Type Department Care Team (Late st Contact Info) Description 04/26/2023 3:15 PM ASSISTANT FINANCIAL ACCOUNTANT Appointment Department of Radiation Oncology in [place], [place] [address] [place] [phone] Gurwinder Tejeda M.D. [address] [place] [phone] 05/03/2023 1:00 PM ASSISTANT FINANCIAL ACCOUNTANT Appointment Department of Laboratory Medicine in [address] [phone] Carson Fletcher M.D. [address] [place] [phone] 05/03/2023 1:10 PM ASSISTANT FINANCIAL ACCOUNTANT Appointment Department of Laboratory Medicine in [address] [phone] Carson Fletcher M.D. [address] [place] [phone] 2023 2:30 PM ASSISTANT FINANCIAL ACCOUNTANT Virtual Visit Division of Pulmonary Medicine in [place], [place] [address] [place] [phone] Carson Fletcher M.D. [address] [place] [phone] 07/05/2023 11:20 AM CDT Lab Department of Laboratory Medicine and Pathology, [facility] in [place], [place] [address] [place] [phone] Kallie Rosales APRN, C.N.P., M.S. [address] [place] [phone] 07/05/2023 12:45 PM CDT Appointment Department of Radiology, [facility] in [place], [place] [address] [place] [phone] Kallie Rosales APRN, C.N.P., M.S. [address] [place] [phone] 07/06/2023 11:30 AM CDT Office Visit Department of Urology in [place], [place] [address] [place] [phone] Sushant Vicente M.D. [address] [place] [phone] documented as of this encounter Visit Diagnoses [...] mg (LUPRON) 22.5 mg, intramuscular, Once, On 09/14/22 at 0000, For 1 dose Given 09/14/2022 11:36 AM CDT 22.5 mg Left Dorsogluteal documented in this encounter Additional Health Concerns Infection Onset Date Last Indicated Resolved Time Protective Environment 07/31/2022 07/31/2022 Assessment Noted Time PHQ-9 Depression Total Score: 2 10/13/19 14 10:45 AM CDT documented as of this encounter Care Teams Utility Mechanic Supervisor Relationship Specialty Start Date End Date Elsewhere, Pcp PCP - General Family Medicine 12/29/19 documented as of this encounter
--- OUTSIDE RECORDS SUMMARY | 2023-04-25 19:04 | XMS_ITS | Encounter Summary ---
Author Name Unknown Organization [facility] Address [address] [place] [address] Care Team Providers Care Artificial Insemination Technician Name Role Phone Elsewhere, Pcp Primary Care Provider Unavailabl e Reason for Visit * Reason Onset Date Comments Lab Monitoring 10/06/2022 Vasculitis Encounter Details Date Type Department Care Team (Latest Contact Info) Description 10/06/2022 Clinical Communication Division of Pulmonary Medicine in [place], [place] [address] [place] [phone] Carson Fletcher M.D. [address] [place] [phone] Lab Monitoring (Vasculitis) Social History Tobacco Use [...] often do you attend chur ch or christianity services? Patient declined 02/03/2022 Do you belong to any clubs o r organizations such as restorationism groups, unions, fraternal or athletic groups, or [...] Answer Date Recorded PHQ-2 Score 2 09/24/2021 [facility] - Occupational [...] encounter Miscellaneous Notes * Telephone Encounter - Kezia Marshall R.N. 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 PR3-ANCA decreased following rituximab. COVID-19 vaccines last dose 01/08/2022. Per 09/14/[address] Fletcher the plan is: - Quarterly B-cells and ANCA due approx 12/07/2022 either by kit or on-campus w/other returns (one-time on-campus order placed) - Bactrim SS daily for PJP pneumonia prevention - Prednisone 10 mg daily (for prostate CA as managed by oncology) - Consider rituximab based upon evolution of CT chest changes & ONC treatments - 3 to 6 month return due between Nov-Feb 2023 with urology/oncology visits Portal user: Plan sent with request that he call to schedule the lab draw at his convenience. documented in this encounter Plan of Treatment Upcoming Encounters Date Type Department Care Team (Late st Contact Info) Description 04/26/2023 3:15 PM FERMENTER Appointment Department of Radiation Oncology in [address] [phone] Gurwinder Tejeda M.D. [address] [place] [phone] 05/03/2023 1:00 PM FERMENTER Appointment Department of Laboratory Medicine in [address] [phone] Carson Fletcher M.D. [address] [place] [phone] 05/03/2023 1:10 PM FERMENTER Appointment Department of Laboratory Medicine in [address] [phone] Carson Fletcher M.D. [address] [place] [phone] 2023 2:30 PM FERMENTER Virtual Visit Division of Pulmonary Medicine in [place], [place] [address] [place] [phone] Carson Fletcher M.D. [address] [place] [phone] 07/05/2023 11:20 AM CDT Lab Department of Laboratory Medicine and Pathology, [facility] in [place], [place] [address] [place] [phone] Kallie Rosales APRN, C.N.P., M.S. [address] [place] [phone] 07/05/2023 12:45 PM CDT Appointment Department of Radiology, [facility] in [place], [place] [address] [place] [phone] Kallie Rosales APRN, C.N.P., M.S. [address] [place] [phone] 07/06/2023 11:30 AM CDT Office Visit Department of Urology in [place], [place] [address] [place] [phone] Sushant Vicente M.D. 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
--- OUTSIDE RECORDS SUMMARY | 2023-04-25 19:04 | XMS_ITS | Encounter Summary ---
Author Name Unknown Organization [facility] Address [address] [place] [address] Care Team Providers Care Business Continuity Specialist Name Role Phone Elsewhere, Pcp Primary Care Provider Unavailabl e Encounter Details Date Type Department Care Team (Late st Contact Info) Description 10/06/2022 Clinical Communication Division of Pulmonary Medicine in [place], [place] [address] [place] [phone] Carson Fletcher M.D. [address] [place] [phone] Social History Tobacco Use Types Packs/Day Years [...] often do you attend chur ch or episcopalian services? Patient declined 02/03/2022 Do you belong to any clubs o r organizations such as pentecostalism groups, unions, fraternal or athletic groups, or [...] Answer Date Recorded PHQ-2 Score 2 09/24/2021 [facility] - Occupational [...] encounter Miscellaneous Notes * Telephone Encounter - Devika Amaya - 10/06/2022 3:39 PM CDT Joann Fletcher, I scheduled and called your patient, he asked me about a CT scan. He was wondering if he needed or you wanted a new scan? Please [email or web address] documented in this encounter Plan of Treatment Upcoming Encounters Date Type Department Care Team (Late st Contact Info) Description 04/26/2023 3:15 PM SHIELD CLEANER Appointment Department of Radiation Oncology in [place], [place] [address] [place] [phone] Gurwinder Tejeda M.D. [address] [place] [phone] 05/03/2023 1:00 PM SHIELD CLEANER Appointment Department of Laboratory Medicine in [address] [phone] Carson Fletcher M.D. [address] [place] [phone] 05/03/2023 1:10 PM SHIELD CLEANER Appointment Department of Laboratory Medicine in [address] [phone] Carson Fletcher M.D. [address] [place] [phone] 2023 2:30 PM SHIELD CLEANER Virtual Visit Division of Pulmonary Medicine in [place], [place] [address] [place] [phone] Carson Fletcher M.D. [address] [place] [phone] 07/05/2023 11:20 AM CDT Lab Department of Laboratory Medicine and Pathology, [place], [place] [address] [place] [phone] Kallie Rosales APRN, C.N.P., M.S. [address] [place] [phone] 07/05/2023 12:45 PM CDT Appointment Department of Radiology, [facility] in [place], [place] [address] [place] [phone] Kallie Rosales APRN, C.N.P., M.S. [address] [place] [phone] 07/06/2023 11:30 AM CDT Office Visit Department of Urology in [place], [place] [address] [place] [phone] Sushant Vicente M.D. [address] [place] [phone] documented as of this encounter Visit Diagnoses Not on filedocumented in this encounter Additional Health Concerns Infection Onset Date Last Indicated Resolved Time Protective Environment 07/31/2022 07/31/2022 Assessment Noted Time PHQ-9 Depression Total Score: 2 10/13/19 14 10:45 AM CDT documented as of this encounter Care Teams Business Continuity Specialist Relationship Specialty Start Date End Date Elsewhere, Pcp PCP - General Family Medicine 12/29/19 documented as of this encounter
--- OUTSIDE RECORDS SUMMARY | 2023-04-25 19:04 | XMS_ITS | Encounter Summary ---
Author Name Unknown Organization [facility] Address [address] [place] [address] Care Team Providers Care Conductor Orchestra Name Role Phone Elsewhere, Pcp Primary Care Provider Unavailabl e Encounter Details Date Type Department Care Team (Latest Contact Info) Description 09/14/2022 8:51 AM CDT - 09/14/2022 10:11 AM CDT Hospital Encounter Department of Laboratory Medicine and Pathology, [facility] in [place], [place] [address] [place] [phone] Carson Fletcher M.D. 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 Patient declined 02/03/2022 Do you belong to any clubs o r organizations such as muslim groups, unions, fraternal or athletic groups, or [...] Answer Date Recorded PHQ-2 Score 2 09/24/2021 [facility] [place] [facility] - Occupational Stress [...] 2, [facility] and 06/24/2022. 0 06/10/2022 zinc chelated 50 mg tablet tablet Take [...] st Contact Info) Description 04/26/2023 3:15 PM RESOLUTION ANALYST Appointment Department of Radiation Oncology in [address] [phone] Gurwinder Tejeda M.D. [address] [place] [phone] 05/03/2023 1:00 PM RESOLUTION ANALYST Appointment Department of Laboratory Medicine in [address] [phone] Carson Fletcher M.D. [address] [place] [phone] 05/03/2023 1:10 PM RESOLUTION ANALYST Appointment Department of Laboratory Medicine in [address] [phone] Carson Fletcher M.D. [address] [place] [phone] 2023 2:30 PM RESOLUTION ANALYST Virtual Visit Division of Pulmonary Medicine in [place], [place] [address] [place] [phone] Carson Fletcher M.D. [address] [place] [phone] 07/05/2023 11:20 AM CDT Lab Department of Laboratory Medicine and Pathology, [facility], in [place], [place] [address] [place] [phone] Kallie Rosales APRN, C.N.P., M.S. [address] [place] [phone] 07/05/2023 12:45 PM CDT Appointment Department of Radiology, [facility], in [place], [place] [address] [place] [phone] Kallie Rosales APRN, C.N.P., M.S. [address] [place] [phone] 07/06/2023 11:30 AM CDT Office Visit Department of Urology in [place], [place] [address] [place] [phone] Sushant Vicente M.D. 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) CBC WITH DIFFERENTIAL, B Routine 09/14/2022 9:06 AM CDT 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) C-REACTIVE PROTEIN (CRP), S/P Routine 09/14/2022 9:06 AM CDT 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) URIC ACID, S/P Routine 09/14/2022 9:06 AM CDT 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) PHOSPHORUS (INORGANIC), S Routine 09/14/2022 9:06 AM CDT 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) GLUCOSE, FASTING, S/P Routine 09/14/2022 9:06 AM CDT 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 Consistent with ANCA-associated vasculitis, if compatible clinical features are present. ----ADDITIONAL INFORMATION---- This test was developed and its performance characteristics determined by [facility] in a manner consistent with CLIA requirements. This test has not been cleared or approved by the U.S. Food and Drug Administration. Blood 09/14/2022 9:06 AM CDT 09/14/2022 2:45 PM CDT Carson Fletcher M.D. LAB BLOOD ADD-ON [facility] [address] [place] [address] [facility] [address] [place] [address] [place] [address] * (ABNORMAL) CD20 on B Cells (09/14/2022 9:06 AM CDT) Pathologist [facility] CD45 Absolute 0.73(L) 1.00 - 3.33 thou/mcL 09/14/2022 3:42 PM CDT [facility] %CD19 B-Cells 0(L) 4.6 - 22.1 % 09/14/2022 3:42 PM CDT [facility] %CD20 B-Cells 0(L) 5.0 - 22.3 % 09/14/2022 3:42 PM CDT [facility] CD19 Absolute 0(L) 56.6 - 417.4 cells/mcL 09/14/2022 3:42 PM CDT [facility] CD20 Absolute 0(L) 74.4 - 441.1 cells/mcL 09/14/2022 3:42 PM CDT [facility] Comment: ----ADDITIONAL INFORMATION---- Reference values implemented June 20, 2008. This test was developed using an analyte specific reagent. Its performance characteristics were determined by [facility] in a manner consistent with CLIA requirements. This test has not been cleared or approved by the U.S. Food and Drug Administration. Blood (Blood, Venous) 09/14/2022 9:06 AM CDT 09/14/2022 10:54 AM CDT Carson Fletcher M.D. LAB BLOOD ADD-ON [facility] [address] [place] [address] [facility] [address] [place] [address] [place] [address] * Immunoglobulin G (IgG) (09/14/2022 9:06 AM CDT) [facility] Immunoglobulin G (IgG), S 943 767 - 1590 mg/dL 09/14/2022 3:57 PM CDT [facility] Blood (Blood, Venous) 09/14/2022 9:06 AM CDT 09/14/2022 1:24 PM CDT Carson Fletcher M.D. LAB BLOOD ADD-ON [facility] [address] [place] [address] [facility] [address] [place] [address] * Uric Acid (09/14/2022 9:06 AM CDT) Uric Acid, S 3.7 3.7 - 8.0 mg/dL 09/14/2022 10:16 AM CDT DTL Blood (Blood, Venous) 09/14/2022 9:06 AM CDT 09/14/2022 9:49 AM CDT Carson Fletcher M.D. LAB BLOOD ADD-ON Performing Organization Address City/[facility]/ZIP Co de Phone Number [facility] 200 [place], [place] [phone] [place] [address] 200 [place] [address] * Phosphorus Inorganic (09/14/2022 9:06 AM CDT) Phosphorus (Inorganic), S 3.5 2.5 - 4.5 mg/dL 09/14/2022 10:16 AM CDT DTL Blood (Blood, Venous) 09/14/2022 9:06 AM CDT 09/14/2022 9:49 AM CDT Carson Fletcher M.D. LAB BLOOD ADD-ON Performing Organization Address City/[facility]/ZIP Co de Phone Number [facility] [address] [place], [place] [address] 200 [place] [address] * Glucose, Fasting (09/14/2022 9:06 AM CDT) Glucose, P 90 70 - 100 mg/dL 09/14/2022 10:19 AM CDT DTL Last Intake 13 hr 09/14/2022 9:49 AM CDT DTL Blood (Blood, Venous) 09/14/2022 9:06 AM CDT 09/14/2022 9:49 AM CDT Carson Fletcher M.D. LAB BLOOD NON ADD-ON [facility] 200 [place], [place] [phone] [place] [address] 200 [place] [address] * Sedimentation Rate (09/14/2022 9:06 AM CDT) [facility] Sedimentation Rate, B 27 3 - 28 mm/h 09/14/2022 10:55 AM CDT DTL Blood (Blood, Venous) 09/14/2022 9:06 AM CDT 09/14/2022 9:30 AM CDT Carson Fletcher M.D. LAB BLOOD ADD-ON Performing Organization Address City/[facility]/ZIP Co de Phone Number [facility] [address] [place], [place] [phone] [place] [address] 200 [place] [address] * CRP (C-Reactive Protein) (09/14/2022 9:06 AM CDT) [facility] C-Reactive Protein (CRP), S <3.0 <5.0 mg/L 09/14/2022 10:16 AM CDT DTL Blood (Blood, Venous) 09/14/2022 9:06 AM CDT 09/14/2022 9:49 AM CDT Carson Fletcher M.D. LAB BLOOD ADD-ON [facility] 200 [place], [place] [phone] [place] [address] 200 [place] [address] * (ABNORMAL) Comprehensive Metabolic Panel (09/14/2022 9:06 AM CDT) [facility] Potassium, S 3.9 3.6 - 5.2 mmol/L 09/14/2022 10:16 AM CDT DTL Sodium, S 141 135 - 145 mmol/L 09/14/2022 10:16 AM CDT DTL Chloride, S 102 98 - 107 mmol/L 09/14/2022 10:16 AM CDT DTL Bicarbonate, S 27 22 - 29 mmol/L 09/14/2022 10:16 AM CDT DTL Anion Gap 12 7 - 15 09/14/2022 10:16 AM CDT DTL BUN (Blood Urea Nitrogen), S 15 8 - 24 mg/dL 09/14/2022 10:16 AM CDT DTL Creatinine 1.22 0.74 - 1.35 mg/dL 09/14/2022 10:16 AM CDT DTL Estimated GFR (eGFR) 60 >=60 mL/min/BS A 09/14/2022 10:16 AM CDT DTL Comment: Estimated GFR calculated using the 2020 CKD_EPI creatinine equation. Calcium, Total, S 9.7 8.8 - 10.2 mg/dL 09/14/2022 10:16 AM CDT DTL Glucose, S CANCELED mg/dL 09/14/2022 9:49 AM CDT DTL Comment: Duplicate test request. Result canceled by the ancillary. Protein, Total, S 6.7 6.3 - 7.9 g/dL 09/14/2022 10:16 AM CDT DTL Albumin, S 4.4 3.5 - 5.0 g/dL 09/14/2022 10:16 AM CDT DTL Aspartate Aminotransferase (AST), S 23 8 - 48 U/L 09/14/2022 10:16 AM CDT DTL Alkaline Phosphatase, S 137(H) 40 - 129 U/L 09/14/2022 10:16 AM CDT DTL Alanine Aminotransferase (ALT), S 16 7 - 55 U/L 09/14/2022 10:16 AM CDT DTL Bilirubin, Total, S 0.6 <=1.2 mg/dL 09/14/2022 10:16 AM CDT DTL Blood (Blood, Venous) 09/14/2022 9:06 AM CDT 09/14/2022 9:49 AM CDT Carson Fletcher M.D. LAB BLOOD ADD-ON [facility] [address] [place] [address], [facility] DTL [facility] [address] [place] [address] * (ABNORMAL) CBC with Differential, Blood (09/14/2022 9:06 AM CDT) Hemoglobin 13.9 13.2 - 16.6 g/dL 09/14/2022 9:51 AM CDT DTL Hematocrit 40.2 38.3 - 48.6 % 09/14/2022 9:51 AM CDT DTL Erythrocytes 3.79(L) 4.35 - 5.65 x10(12)/L 09/14/2022 9:51 AM CDT DTL MCV 106.1(H) 78.2 - 97.9 fL 09/14/2022 9:51 AM CDT DTL RBC Distrib Width 13.8 11.8 - 14.5 % 09/14/2022 9:51 AM CDT DTL Platelet Count 194 135 - 317 x10(9)/L 09/14/2022 9:51 AM CDT DTL Leukocytes 9.2 3.4 - 9.6 x10(9)/L 09/14/2022 9:51 AM CDT DTL Neutrophils 7.72(H) 1.56 - 6.45 x10(9)/L 09/14/2022 9:51 AM CDT DTL Lymphocytes 0.66(L) 0.95 - 3.07 x10(9)/L 09/14/2022 9:51 AM CDT DTL Monocytes 0.74 0.26 - 0.81 x10(9)/L 09/14/2022 9:51 AM CDT DTL Eosinophils 0.05 0.03 - 0.48 x10(9)/L 09/14/2022 9:51 AM CDT DTL Basophils 0.03 0.01 - 0.08 x10(9)/L 09/14/2022 9:51 AM CDT DTL Blood (Blood, Venous) 09/14/2022 9:06 AM CDT 09/14/2022 9:30 AM CDT Carson Fletcher M.D. LAB BLOOD ADD-ON [facility] [address] [place] [address], [facility] DTL [facility] [address] [place] [address] * (ABNORMAL) ANCA (Antineutrophil Cytoplasmic Antibodies) Vasculitis Panel (09/14/2022 9:06 AM CDT) Myeloperoxidase Ab, S <0.2 <0.4 (Negative ) U 09/14/2022 2:43 PM CDT SDS Proteinase 3 Ab (PR3), S 7.4(H) <0.4 (Negative ) U 09/14/2022 2:43 PM CDT [facility] Comment:Interpretation: Posi tive (>=1.0) Blood (Blood, Venous) 09/14/2022 9:06 AM CDT 09/14/2022 1:21 PM CDT Carson Fletcher M.D. LAB BLOOD ADD-ON [facility] [address] [place] [address] [facility] [address] 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
--- OUTSIDE RECORDS SUMMARY | 2023-04-25 19:04 | XMS_ITS | Encounter Summary ---
Author Name Unknown Organization [facility] Address [address] [place] [address] Care Team Providers Care Land Leasing Information Clerk Name Role Phone Elsewhere, Pcp Primary Care Provider Unavailabl e Reason for Visit * Reason Onset Date Comments Appointment 09/28/2022 Encounter Details Date Type Department Care Team ([facility] st Contact Info) Description 09/28/2022 Clinical Communication Division of Pulmonary Medicine in [place], [place] [address] [place] [phone] Carson Fletcher M.D. [address] [place] [phone] Appointment Social History Tobacco Use Types Packs/Day Years [...] often do you attend chur ch or evangelical services? Patient declined 02/03/2022 Do you belong to any clubs o r organizations such as confucianism groups, unions, fraternal or athletic groups, or [...] Answer Date Recorded PHQ-2 Score 2 09/24/2021 [facility] Answer Date [...] st Contact Info) Description 04/26/2023 3:15 PM EMAIL MARKETING MANAGER Appointment Department of Radiation Oncology in [place], [place] [address] [place] [address] Gurwinder Tejeda M.D. [address] [place] [phone] 05/03/2023 1:00 PM EMAIL MARKETING MANAGER Appointment Department of Laboratory Medicine in [address] [phone] Carson Fletcher M.D. [address] [place] [phone] 05/03/2023 1:10 PM EMAIL MARKETING MANAGER Appointment Department of Laboratory Medicine in [address] [phone] Carson Fletcher M.D. [address] [place] [phone] 2023 2:30 PM EMAIL MARKETING MANAGER Virtual Visit Division of Pulmonary Medicine in [place], [place] [address] [place] [phone] Carson Fletcher M.D. [address] [place] [phone] 07/05/2023 11:20 AM CDT Lab Department of Laboratory Medicine and Pathology, [facility] in [place], [place] [address] [place] [phone] Kallie Rosales APRN, C.N.P., M.S. [address] [place] [phone] 07/05/2023 12:45 PM CDT Appointment Department of Radiology, [facility], in [place], [place] [address] [place] [phone] Kallie Rosales APRN, C.N.P., M.S. [address] [place] [phone] 07/06/2023 11:30 AM CDT Office Visit Department of Urology in [place], [place] [address] [place] [phone] Sushant Vicente M.D. [address] [place] [phone] documented as of this encounter Visit Diagnoses Not on filedocumented in this encounter Additional Health Concerns Infection Onset Date Last Indicated Resolved Time Protective Environment 07/31/2022 07/31/2022 Assessment Noted Time PHQ-9 Depression Total Score: 2 10/13/19 14 10:45 AM CDT documented as of this encounter Care Teams Land Leasing Information Clerk Relationship Specialty Start Date End Date Elsewhere, Pcp PCP - General Family Medicine 12/29/19 documented as of this encounter
--- OUTSIDE RECORDS SUMMARY | 2023-04-25 19:04 | XMS_ITS | Encounter Summary ---
Author Name Unknown Organization [facility] Address [address] [place] [address] Care Team Providers Care Rail Engineer Name Role Phone Elsewhere, Pcp Primary Care Provider Unavailabl e Reason for Referral * Outpatient (Routine) - Closed Specialty Diagnoses / Procedures Referred By Brittni callejas Referred To Contact Pulmonary Medicine Carson Fletcher M.D. 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 [address] [place] [phone] [facility] Referral ID Status Reason Start Date Expiration Date Visits Re quested Visits Authorized [id number] Closed 06/17/2022 06/16/2025 1 1 Encounter Details Date Type Department Care Team (Latest Contact Info) Description 09/14/2022 2:00 PM CDT Office Visit Division of Pulmonary Medicine in [place], [place] [address] [place] [phone] Carson Fletcher M.D. 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 Patient declined 02/03/2022 Do you belong to any clubs o r organizations such as denominational groups, unions, fraternal or athletic groups, or [...] Answer Date Recorded PHQ-2 Score 2 09/24/[address] [facility] - Occupational Stress Questionnaire Answer Date [...] place to sleep or slept in a prison (including now)? No 02/03/2022 Nutrition Answer Date [...] Sign Reading Time Taken Comments Blood Pressure 124/69 09/14/2022 1:45 PM CDT Pulse 80 09/14/2022 1:45 PM CDT Temperature 36.2 ??C (97.2 ??F) 09/14/2022 1:45 PM CD T Respiratory Rate - - Oxygen Saturation 94% 09/14/2022 1:45 PM CDT Inhaled Oxygen Concentration - - Weight 80.8 kg (178 lb 2.1 oz) 09/14/2022 1:45 P M CDT Height 172.2 cm (5' 7.8) 09/14/2022 1:45 PM CDT Body Mass Index 27.25 09/14/2022 1:45 PM CDT documented in this encounter H&P Notes * Carson Fletcher M.D. - 09/14/2022 2:00 PM CDT SUBJECTIVE CHIEF COMPLAINT / REASON FOR VISIT Mr. Lashell Gates is a 77 y.o. male who returns for a reevaluation of PR3- ANCA associated GPA/. VASCULITIS HISTORY December 2013: Diagnosed with GPA (c-ANCA and PR3 positive). Tolerated the regimen well. His presentation included [...] mg/week and had radiographic and symptomatic improvement. Started on Bactrim and folate as well. Several weeks later, the BAL culture grew M. avium complex and M. gordonae, along with Penicillium and Cladosporum but the patient has remained asymptomatic from a pulmonary standpoint. February 2014: Prednisone on taper; Methotrexate at 25 mg/week. Symptoms resolved, chest CT improved. March 2014: Tapered off prednisone, continues on Methotrexate 25 mg/week. July 2014: Doing well, continuing on Methotrexate 25 mg/week. Nov 2014: Severe fatigue with methotrexate. Dose reduced to 20 mg/week, to be taken as 10 mg in AM and 10 mg in PM. July 2015: Doing well, continuing on methotrexate 20 mg/week. No change in dose since. Since 2013, gradual decline in DLCO. He was enrolled in the lung cancer screening study in 2013 andhas had regular follow-up CT chest studies since which showed some progression of mild non-specificinterstitial changes in stable centrilobular emphysematous changes. Therefore, MTX was replaced with AZA in October, but he did not tolerate AZA and was switched to MMF. 2021, during his treatment for metastatic prostate cancer he developed progressive lung lesions without respiratory symptoms. As these looked like GPA, but did not light up in the prostate cancer specific PET-CT, we switched the MMF maintenance therapy to RTX 1 g x 2, two weeks apart in late May,early June 2022. HISTORY OF PRESENT ILLNESS Since his last visit here in April, Mr. Gates has received remission induction dosing with RTX, 1 g x 2, for progressive lung lesions c/w GPA, on 06/10/2022 and 06/24/2022. He has not experienced any symptoms of GPA or significant respiratory symptoms. Fluctuating fatigue. Unfortunately, his PSA has been rising again. OBJECTIVE PHYSICAL EXAM General: Well appearing. No conversational dyspnea. No coughing during evaluation. Skin: No inflammatory abnormalities. Eyes: Anicteric sclerae. ENT: No oropharyngeal lesions. Heart: Regular rate and rhythm. Lungs: Clear to auscultation bilaterally without wheezes, crackles, or squeaks. Extremities: No peripheral edema. No cyanosis. No clubbing. Joints: No evidence of synovitis. 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 Review of the CT of the chest shows improvement in the consolidative areas attributed to GPA and some of the nodular lesions. However, there are new small nodules which in the context of rising PSA are of concern, and will need follow- up by our colleagues in urology/oncology. We will monitor B-cells and PR3-ANCA levels q 3 months, and decide about retreatment with RTX basedon evolution of his CT-changes and treatment plans for his prostate cancer. Return in 3-6 months, can be coordinated with his urology/oncology visits. documented in this encounter Plan of Treatment Upcoming Encounters Date Type Department Care Team (Late st Contact Info) Description 04/26/2023 3:15 PM BOOKING POLICE OFFICER Appointment Department of Radiation Oncology in [address] [phone] Gurwinder Tejeda M.D. [address] [place] [phone] 05/03/2023 1:00 PM BOOKING POLICE OFFICER Appointment Department of Laboratory Medicine in [address] [phone] Carson Fletcher M.D. [address] [place] [phone] 05/03/2023 1:10 PM BOOKING POLICE OFFICER Appointment Department of Laboratory Medicine in [address] [phone] Carson Fletcher M.D. [address] [place] [phone] 2023 2:30 PM BOOKING POLICE OFFICER Virtual Visit Division of Pulmonary Medicine in [place], [place] [address] [place] [phone] Carson Fletcher M.D. [address] [place], [place] [phone] 07/05/2023 11:20 AM CDT Lab Department of Laboratory Medicine and Pathology, [place], [place] [address] [place] [phone] Kallie Rosales APRN, C.N.P., M.S. [address] [place] [phone] 07/05/2023 12:45 PM CDT Appointment Department of Radiology, [facility] in [place], [place] [address] [place] [phone] Kallie Rosales APRN, C.N.P., M.S. [address] [place] [phone] 07/06/2023 11:30 AM CDT Office Visit Department of Urology in [place], [place] [address] [place] [phone] Sushant Vicente M.D. [address] [place] [phone] Scheduled Referrals Name Type Priority Associated Diagnoses Orde r Schedule Pulmonary Medicine office visit (clinic) Outpatient Referral Routine Expected: 12/22/2022, Expires: 12/16/2023 documented as of this encounter Results * [...] CDT Carson Fletcher M.D. LAB URINE ORDERABLES [facility] 200 [place] [address], [facility] 200 [place] [address] * Comprehensive Metabolic Panel (12/22/2022 12:00 PM CDT) Potassium, S 4.1 3.6 - 5.2 mmol/L [...] CDT Carson Fletcher M.D. LAB BLOOD ADD-ON [address] [address], [facility] 200 [place] [address] * (ABNORMAL) CBC with Differential, Blood (12/22/2022 [...] CDT Carson Fletcher M.D. LAB BLOOD ADD-ON [facility] [address] [place] [address], [facility] DTL [facility] [address] [place] [address] [facility] [address] [place] [address] * (ABNORMAL) ANCA (Antineutrophil Cytoplasmic Antibodies) Vasculitis Panel (12/22/2022 12:00 PM CDT) Myeloperoxidase Ab, S <0.2 <0.4 (Negative ) U 12/22/2022 6:58 PM CDT SDSC Proteinase 3 Ab (PR3), S 4.0(H) <0.4 (Negative ) U 12/22/2022 6:58 PM CDT [facility] Comment:Interpretation: Posi tive (>=1.0) Blood (Blood, Venous) 12/22/2022 12:00 PM CDT 12/22/2022 5:11 PM CDT Carson Fletcher M.D. LAB BLOOD ADD-ON Performing Organization Address [facility] Co de Phone Number [facility] [address] [place] [address] [facility] [address] [place] [address] [place] [address] * (ABNORMAL) CD20 on B Cells (12/22/2022 12:00 PM CDT) Pathologist [facility] CD45 Absolute 0.70(L) 1.00 - 3.33 thou/mcL 12/23/2022 11:22 PM CDT SDSC %CD19 B-Cells 0(L) 4.6 - 22.1 % 12/23/2022 11:22 PM CDT SDSC %CD20 B-Cells 0(L) 5.0 - 22.3 % 12/23/2022 11:22 PM CDT [facility]SC CD19 Absolute 0(L) 56.6 - 417.4 cells/mcL 12/23/2022 11:22 PM CDT [facility] CD20 Absolute 0(L) 74.4 - 441.1 cells/mcL 12/23/2022 11:22 PM CDT [facility] Comment: ----ADDITIONAL INFORMATION---- Reference values implemented June 20, 2008. This test was developed using an analyte specific reagent. Its performance characteristics were determined by [facility] in a manner consistent with CLIA requirements. This test has not been cleared or approved by the U.S. Food and Drug Administration. Blood (Blood, Venous) 12/22/2022 12:00 PM CDT 12/22/2022 3:35 PM CDT Carson Fletcher M.D. LAB BLOOD ADD-ON Performing Organization Address [facility]/ZIP Co de Phone Number [facility] [address] [place] [address] MILLER [facility] 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
--- OUTSIDE RECORDS SUMMARY | 2023-04-25 19:04 | XMS_ITS | Encounter Summary ---
Author Name Unknown Organization [facility] Address [address] [place] [address] Care Team Providers Care Reading Intervention Teacher Name Role Phone Elsewhere, Pcp Primary Care Provider Unavailabl e Encounter Details Date Type Department Care Team (Latest Contact Info) Description 09/14/2022 8:51 AM CDT - 09/14/2022 10:11 AM CDT Hospital Encounter Department of Laboratory Medicine and Pathology, [facility] in [place], [place] [address] [place] [phone] Carson Fletcher M.D. 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 Patient declined 02/03/2022 Do you belong [...] Answer Date Recorded PHQ-2 Score 2 09/24/2021 [facility] - Occupational [...] place to sleep or slept in a fdc (including now)? No 02/03/2022 Nutrition Answer Date [...] st Contact Info) Description 04/26/2023 3:15 PM DENTAL INSURANCE BILLER Appointment Department of Radiation Oncology in [address] [phone] Gurwinder Tejeda M.D. [address] [place] [phone] 05/03/2023 1:00 PM DENTAL INSURANCE BILLER Appointment Department of Laboratory Medicine in [address] [phone] Carson Fletcher M.D. [address] [place] [phone] 05/03/2023 1:10 PM DENTAL INSURANCE BILLER Appointment Department of Laboratory Medicine in [address] [phone] Carson Fletcher M.D. [address] [place] [phone] 2023 2:30 PM DENTAL INSURANCE BILLER Virtual Visit Division of Pulmonary Medicine in [place], [place] [address] [place] [phone] Carson Fletcher M.D. [address] [place] [phone] 07/05/2023 11:20 AM CDT Lab Department of Laboratory Medicine and Pathology, [facility], in [place], [place] [address] [place] [phone] Kallie Rosales APRN, C.N.P., M.S. [address] [place] [phone] 07/05/2023 12:45 PM CDT Appointment Department of Radiology, [facility], in [place], [place] [address] [place] [phone] Kallie Rosales APRN, C.N.P., M.S. [address] [place] [phone] 07/06/2023 11:30 AM CDT Office Visit Department of Urology in [place], [place] [address] [place] [phone] Sushant Vicente M.D. 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 LAB URINE ORDERABLES Performing Organization Address City/[facility]/ZIP Co de Phone Number [facility] 200 [place], [place] [phone] [place] [address] [address] * Microscopic Automated (09/14/2022 9:17 AM CDT) Microscopy Normal 09/14/2022 10:47 AM CDT DTL RBC <3 <3 /hpf 09/14/2022 10:47 AM CDT DTL WBC 1-3 /hpf 09/14/2022 10:47 AM CDT DTL Comment: ----REFERENCE VALUE---- 1-3 ??(Males) 1-10 (Females) Urine 09/14/2022 9:17 AM CDT 09/14/2022 9:46 AM CDT Carson Fletcher M.D. LAB URINE ORDERABLES [facility] [address] [place] [address], [facility] 200 [place] [address] * Osmolality, Urine (09/14/2022 9:17 AM CDT) Osmolality, U 522 150 - 1150 mOsm/kg 09/14/2022 10:37 AM CDT DTL Urine 09/14/2022 9:17 AM CDT 09/14/2022 9:46 AM CDT Carson Fletcher M.D. LAB URINE ORDERABLES Performing Organization Address City/[facility] Co de Phone Number [facility] 200 [place], [place] [phone] [place] [address] * pH, Urine (09/14/2022 9:17 AM CDT) pH, U 5.5 4.5 - 8.0 09/14/2022 10: 37 AM CDT DTL Urine 09/14/2022 9:17 AM CDT 09/14/2022 9:46 AM CDT Carson Fletcher M.D. LAB URINE ORDERABLES Performing Organization Address [facility] de Phone Number [facility] [address] [place], [place] [phone] [place] [address] * (ABNORMAL) Urinalysis with Microscopic: Urine, Midstream (09/14/2022 9:17 AM CDT) Source Urine, Urine, Midstream 09/14/2022 9:46 AM CDT DTL Color, U Yellow 09/14/2022 9:46 AM CDT DTL Clarity, U Clear 09/14/2022 9:46 AM CDT DTL Protein, U 21 <26 mg/dL 09/14/2022 10:36 AM CDT DTL Protein/Osmol ality 0.40 <0.42 ratio 09/14/2022 10:37 AM CDT DTL Predicted 24 HR Protein, U 395(H) <229 mg/24 h 09/14/2022 10:37 AM CDT DTL Predicted Range 125-1246 mg/24 h 09/14/2022 10:37 AM CDT DTL Urine (Urine, Midstream) 09/14/2022 9:17 AM CDT 09/14/2022 9:46 AM CDT Carson Fletcher M.D. LAB URINE ORDERABLES [facility] [address] [place] [address], 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
--- OUTSIDE RECORDS SUMMARY | 2023-04-25 19:05 | XMS_ITS | Encounter Summary ---
Author Name Unknown Organization [facility] Address [address] [place] [address] Care Team Providers Care Underground Truck Operator Name Role Phone Elsewhere, Pcp Primary Care Provider Unavailabl e Reason for Visit * Reason Onset Date Comments Pre-visit Intake 07/31/2022 Encounter Details Date Type Department Care Team (Latest Contact Info) Description 07/31/2022 2:15 PM CDT Clinical Communication Virtual Review in [place], [place] 200 [place] [address] Pre-visit Intake Social History Tobacco Use Types Packs/Day Years Used Date Smoking Tobacco: Some Days Cigarettes 0.3 30 Smokeless Tobacco: Never Alcohol Use Standard Drinks/Week [...] How often do you attend chur or mormon services? Patient declined 02/03/2022 Do you belong to any clubs o r organizations such as yazidi groups, unions, fraternal or athletic groups, or [...] Answer Date Recorded PHQ-2 Score 2 09/24/2021 [facility] - Occupational [...] place to sleep or slept in a jail (including now)? No 02/03/2022 Nutrition Answer Date [...] st Contact Info) Description 04/26/2023 3:15 PM LUMBER MOVER Appointment Department of Radiation Oncology in [place], [place] [address] [place] [phone] Gurwinder Tejeda M.D. [address] [place] [address] 05/03/2023 1:00 PM LUMBER MOVER Appointment Department of Laboratory Medicine in [address] [phone] Carson Fletcher M.D. [address] [place] [phone] 05/03/2023 1:10 PM LUMBER MOVER Appointment Department of Laboratory Medicine in [address] [phone] Carson Fletcher M.D. [address] [place] [phone] 2023 2:30 PM LUMBER MOVER Virtual Visit Division of Pulmonary Medicine in [place], [place] [address] [place] [address] Carson Fletcher M.D. [address] [place] [phone] 07/05/2023 11:20 AM CDT Lab Department of Laboratory Medicine and Pathology, [facility] in [place], [place] [address] [place] [address] Kallie Rosales APRN, C.N.P., M.S. [address] [place] [phone] 07/05/2023 12:45 PM CDT Appointment Department of Radiology, [facility] in [place], [place] [address] [place] [phone] Kallie Rosales APRN, C.N.P., M.S. [address] [place] [phone] 07/06/2023 11:30 AM CDT Office Visit Department of Urology in [place], [place] [address] [place] [address] Sushant Vicente M.D. [address] [place] [phone] documented as of this encounter Visit Diagnoses Not on filedocumented in this encounter Additional Health Concerns Infection Onset Date Last Indicated Resolved Time Protective Environment 07/31/2022 07/31/2022 Assessment Noted Time PHQ-9 Depression Total Score: 2 10/13/19 14 10:45 AM CDT documented as of this encounter Care Teams Underground Truck Operator Relationship Specialty Start Date End Date Elsewhere, Pcp PCP - General Family Medicine 12/29/19 documented as of this encounter
--- OUTSIDE RECORDS SUMMARY | 2023-04-25 19:05 | XMS_ITS | Encounter Summary ---
Author Name Unknown Organization [facility] Address [address] [place] [address] Care Team Providers Care Acquisitions Editor Name Role Phone Elsewhere, Pcp Primary Care Provider Unavailabl e Reason for Referral * Outpatient (Routine) - Closed Specialty Diagnoses / Procedures Referred By Contac t Referred To Contact Diagnoses Primary Malignant Neoplasm Of Prostate (HCC) Rising Prostate Specific Antigen Following Treatment For Malignant Cancer Of Prostate Secondary Malignant Neoplasm Bone (HCC) Procedures NM Post Therapy Gamaliel-177 PSMA Monitoring Whole Body with SPECT CT Multiple Cristal Solis APRN C.N.PTavon, M.S.N. [address] [place] [address] [facility] Referral ID Status Reason Start Date Expiration Date Visits Re quested Visits Authorized [id number] Closed 09/24/2021 09/24/2022 6 6 Reason for Visit * Outpatient (Routine) - Closed Specialty Diagnoses / Procedures Referred By Contac t Referred To Contact Diagnoses Primary Malignant Neoplasm Of Prostate (HCC) Rising Prostate Specific Antigen Following Treatment For Malignant Cancer Of Prostate Secondary Malignant Neoplasm Bone (HCC) Procedures NM Post Therapy Gamaliel-177 PSMA Monitoring Whole Body with SPECT CT Multiple Cristal Solis APRN C.N.PTavon, M.S.N. [address] [place] [address] [facility] Referral ID Status Reason Start Date Expiration Date Visits Re quested Visits Authorized [id number] Closed 09/24/2021 09/24/2022 6 6 Encounter Details Date Type Department Care Team (Latest Contact Info) Description 06/10/2022 6:57 AM CDT - 06/10/2022 11:59 PM CDT Hospital Encounter Department of Radiology in [place], [place] [address] [place] [address] Cristal Solis, ZUNILDA, C.N.P., M.S.N. [address] [place] [address] Primary Malignant Neoplasm Of Prostate (HCC); Rising [...] How often do you attend [facility] or mandaen services? Patient declined 02/03/2022 Do [...] 09/24/2021 [facility] - Occupational [...] 1 capsule by mouth daily. 0 08/10/2016 diphenhydrAMINE-acetam inophen (TYLENOL PM) 25-500 mg per tablet Take 1 tablet by mouth as needed. Insomnia 0 09/12/2013 DOCOSAHEXANOIC ACID/EPA (FISH OIL ORAL) Take 1 capsule by mouth daily. 1000 mg daily as supplement. 0 12/31/2016 loperamide (IMODIUM A-D) 2 mg capsule Take 2 mg by mouth at bedtime as needed for diarrhea. 0 magnesium oxide (MAG-OX) 400 mg (241.3 mg magnesium) tablet Take 400 mg by mouth daily. 0 02/21/2020 nitroglycerin (NITROSTAT) 0.[address] 0.4 mg under the tongue as needed. 0 02/27/2020 potassium chloride (KLORCON/K-TAB) 10 mEq ER tablet Take 1 tablet (10 mEq total) by mouth daily. 90 tablet 3 09/24/2021 RITUXIMAB IV Infuse 1,000 mg into a venous catheter as directed. 1000 mg x 2, [address] [facility] on 06/10/2022 and 06/24/2022. 0 06/10/2022 zinc chelated 50 mg tablet tablet Take 50 mg by mouth daily. 0 FOLIC ACID/MULTIVIT-MIN/LUTE IN (CENTRUM SILVER ORAL) Take 1 tablet by mouth daily. 0 07/18/2008 03/09/2023 METHOTREXATE SODIUM ORAL Take by mouth. 0 11/27/2021 03/09/2023 morphine sulfate (MS CONTIN ORAL) Take 5 mg by mouth 2 (two) times a day as needed (for pain). 0 09/11/2022 NON FORMULARY Take by mouth. PEDI MULTIVIT NO.16 W-FLUORIDE (MULTIVITAMINS WITH FLUORIDE) 0.25 MG TABLET,CHEWABLE 0 11/27/2021 03/09/2023 omeprazole (PriLOSEC) [address] capsule Take by mouth daily. 0 11/27/2021 pantoprazole (PROTONIX) 40 mg EC tablet Take 1 tablet (40 mg total) by mouth every morning before breakfast. 90 tablet 3 09/24/2021 07/31/2022 predniSONE (DELTASONE) 5 mg tablet Take 1 tablet (5 mg total) by mouth 2 (two) times a day. 180 tablet 3 09/24/2021 07/31/2022 triamcinolone (KENALOG) 0.1 % cream Apply topically. 0 11/27/2021 UNABLE TO FIND every 6 (six) weeks. Pluvicco injection 0 09/11/2022 documented as of this encounter Plan of Treatment Upcoming Encounters Date Type Department Care Team (Late st Contact Info) Description 04/26/2023 3:15 PM CRIME SPECIALIST Appointment Department of Radiation Oncology in [address] [phone] Gurwinder Tejeda M.D. [address] [place] [phone] 05/03/2023 1:00 PM CRIME SPECIALIST Appointment Department of Laboratory Medicine in [address] [phone] Carson Fletcher M.D. [address] [place] [phone] 05/03/2023 1:10 PM CRIME SPECIALIST Appointment Department of Laboratory Medicine in [address] [phone] Carson Fletcher M.D. [address] [place] [phone] 2023 2:30 PM CRIME SPECIALIST Virtual Visit Division of Pulmonary Medicine in [place], [place] [address] [place] [phone] Carson Fletcher M.D. [address] [place] [phone] 07/05/2023 11:20 AM CDT Lab Department of Laboratory Medicine and Pathology, [facility] in [place], [place] [address] [place] [phone] Kallie Rosales APRN, C.N.P., M.S. [address] [place] [phone] 07/05/2023 12:45 PM CDT Appointment Department of Radiology, [facility], in [place], [place] [address] [place] [phone] Kallie Rosales APRN, C.N.P., M.S. [address] [place] [phone] 07/06/2023 11:30 AM CDT Office Visit Department of Urology in [place], [place] [address] [place] [address] Sushant Vicente M.D. [address] [place] [address] documented as of this encounter Procedures Procedure Name Priority Date/Time Associated Diagnosis Comments NM POST TX GAMALIEL-177 PSMA MONITORING WB W SPECT CT MULTI RAD - Routine (most inpatients and all outpatients) 06/10/2022 8:03 AM CDT Primary Malignant Neoplasm Of Prostate (HCC) Rising Prostate Specific Antigen Following Treatment For Malignant Cancer Of Prostate Secondary Malignant Neoplasm Bone (HCC) documented in this encounter Results * NM Post Therapy Gamaliel-177 PSMA Monitoring Whole Body with SPECT CT Multiple (06/10/2022 8:03 AM CDT) Anatomical Region Laterality Modality Body, Nuclear Medicine RST L OS, Nuclear Medicine ARZ LOS, Nuclear Medicine FLA LOS, Nuclear Medicine N/A Nuclear Med icine 06/10/2022 9:01 AM CDT Impressions 06/10/2022 9:41 AM CDT 1. Successful localization of Gamaliel-177 PSMA to the known metastatic disease. 2. No additional foci of Gamaliel-177 PSMA localization to suggest new metastasis. 3. No suspicious non-PSMA avid metastatic disease. PSMA expression score: 1 Narrative 06/10/2022 9:41 AM CDT EXAM: ??NM POST TX GAMALIEL-177 PSMA MONITORING WB W SPECT CT MULTI RADIOPHARMACEUTICAL/MEDS: Gamaliel-177 PSMA-617 (PLUVICTO) therapy was administered yesterday and noted in a therapy note on that date. This scan is a quantitative 3D image to localize the previously administered therapy including the tumor and organ biodistribution of that therapy. TECHNIQUE: ??Gamaliel-177 PSMA therapy monitoring imaging with quantitative SPECT performed from the vertex to the thighs with low dose, non-contrast free-breathing CT for attenuation correction and anatomic localization, and imaging beginning at approximately 24 hours after therapy injection. COMPARISON: Gamaliel-177 post-therapy SPECT/CT dated 04/29/2022, PSMA PET/CT dated 04/27/2022, and other previous studies. INDICATION: Metastatic prostate cancer. Monitoring biodistribution after cycle 6 of therapy. ?? FINDINGS: Expected Gamaliel-177 PSMA localization to the known metastatic disease in the lymph nodes and bones. Decreased tracer uptake in the left clavicular head since the prior SPECT-CT dated 04/29/2022. New foci of PSMA localization since prior PSMA PET/CT or Post-therapy scan: Absent Overall, the PSMA avid tumor volume is visually decreased from prior exam. Suspicious non-PSMA avid metastatic disease: None. Biodistribution: Otherwise expected physiologic distribution of PSMA uptake. Additional findings on the noncontrast low-dose CT: Redemonstrated multifocal pulmonary opacities with cavitation, consistent with the patient's history of vasculitis. Pulmonary fibrotic changes. Atherosclerotic calcifications including coronary artery calcification. Aortic valve calcification. Sclerotic osseous lesions without radiotracer uptake, consistent with treated metastases. Splenule. Colonic diverticulosis without evidence of diverticulitis. Postoperative changes of prostatectomy. Gynecomastia. Degenerative change of the spine. Procedure Note Mirza Sy M.D. - 06/10/2022 EXAM: NM POST TX GAMALIEL-177 PSMA MONITORING WB W SPECT CT MULTI RADIOPHARMACEUTICAL/MEDS: Gamaliel-177 PSMA-617 (PLUVICTO) therapy was administered yesterday and noted valarie therapy note on that date. This scan is a quantitative 3D image to localize the previouslyadministered therapy including the tumor and organ biodistribution of that therapy. TECHNIQUE: Gamaliel-177 PSMA therapy monitoring imaging with quantitative SPECTperformed from the vertex to the thighs with low dose, non-contrast free-breathing CT forattenuation correction and anatomic localization, and imaging beginning at approximately 24 hours aftertherapy injection. COMPARISON: Gamaliel-177 post-therapy SPECT/CT dated 04/29/2022, PSMA PET/CTdated 04/27/2022, and other previous studies. INDICATION: Metastatic prostate cancer. Monitoring biodistribution aftercycle 6 of therapy. FINDINGS: Expected Gamaliel-177 PSMA localization to the known metastatic disease in thelymph nodes and bones. Decreased tracer uptake in the left clavicular head since the priorSPECT-CT dated 04/29/2022. New foci of PSMA localization since prior PSMA PET/CT or Post-therapyscan: Absent Overall, the PSMA avid tumor volume is visually decreased from priorexam. Suspicious non-PSMA avid metastatic disease: None. Biodistribution: Otherwise expected physiologic distribution of PSMAuptake. Additional findings on the noncontrast low-dose CT: Redemonstratedmultifocal pulmonary opacities with cavitation, consistent with the patient's history of vasculitis.Pulmonary fibrotic changes. Atherosclerotic calcifications including coronary artery calcification.Aortic valve calcification. Sclerotic osseous lesions without radiotracer uptake, consistent withtreated metastases. Splenule. Colonic diverticulosis without evidence of diverticulitis. Postoperativechanges of prostatectomy. Gynecomastia. Degenerative change of the spine. IMPRESSION: 1. Successful localization of Gamaliel-177 PSMA to the known metastaticdisease. 2. No additional foci of Gamaliel-177 PSMA localization to suggest newmetastasis. 3. No suspicious non-PSMA avid metastatic disease. PSMA expression score: 1 Cristal Solis APRN, C.N.P., M.S.N. [place] PROCEDURES documented in this encounter Visit Diagnoses Diagnosis Primary Malignant Neoplasm Of Prostate (HCC) Rising Prostate Specific Antigen Following Treatment For Malignant Cancer Of Prostate Secondary Malignant Neoplasm Bone (HCC) documented in this encounter Additional Health Concerns Assessment Noted Time PHQ-9 Depression Total Score: 2 10/13/19 14 10:45 AM CDT documented as of this encounter Care Teams Acquisitions Editor Relationship Specialty Start Date End Date Elsewhere, Pcp PCP - General Family Medicine 12/29/19 documented as of this encounter
--- OUTSIDE RECORDS SUMMARY | 2023-04-25 19:05 | XMS_ITS | Encounter Summary ---
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 [address] [place] [phone] [facility]st [facility] [place] [address] [place] [phone] Referral ID Status Reason Start Date Expiration Date Visits Re quested Visits Authorized [id number] Closed 05/11/2022 05/11/2023 99 99 Encounter Details Date Type Department Care Team (Late st Contact Info) Description 06/24/2022 8:30 AM CDT Infusion Department of Infusion Therapy in [place], [place] [address] [place] [phone] Carson Fletcher M.D. 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 Patient declined 02/03/2022 Do you belong to any clubs o r organizations such as congregational groups, unions, fraternal or athletic groups, or [...] [facility] - Occupational Stress Questionnaire Answer Date [...] Sign Reading Time Taken Comments Blood Pressure 102/49 06/24/2022 2:07 PM CDT Pulse 74 06/24/2022 2:07 PM CDT Temperature 37 ??C (98.6 ??F) 06/24/2022 10:08 AM CDT Respiratory Rate 20 06/24/2022 2:07 PM CDT Oxygen Saturation - - Inhaled Oxygen Concentration - - Weight - - Height - - Body Mass Index - - documented in this encounter Plan of Treatment Upcoming Encounters Date Type Department Care Team (Late st Contact Info) Description 04/26/2023 3:15 PM CUSTOMS VERIFIER Appointment Department of Radiation Oncology in [address] [phone] Gurwinder Tejeda M.D. [address] [place] [phone] 05/03/2023 1:00 PM CUSTOMS VERIFIER Appointment Department of Laboratory Medicine in [address] [phone] Carson Fletcher M.D. [address] [place] [phone] 05/03/2023 1:10 PM CUSTOMS VERIFIER Appointment Department of Laboratory Medicine in [address] [phone] Carson Fletcher M.D. [address] [place] [phone] 2023 2:30 PM CUSTOMS VERIFIER Virtual Visit Division of Pulmonary Medicine in [place], [place] [address] [place] [phone] Carson Fletcher M.D. [address] [place] [phone] 07/05/2023 11:20 AM CDT Lab Department of Laboratory Medicine and Pathology, [facility], in [place], [place] [address] [place] [phone] Kallie Rosales APRN, C.N.P., M.S. [address] [place] [phone] 07/05/2023 12:45 PM CDT Appointment Department of Radiology, [facility] in [place], [place] [address] [place] [phone] Kallie Rosales APRN, Regulo.N.P., M.S. [address] [place] [phone] 07/06/2023 11:30 AM CDT Office Visit Department of Urology in [place], [place] [address] [place] [phone] Sushant Vicente M.D. 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) documented in this encounter Administered Medications Inactive Administered Medications - up to 3 most recent administrations Medication Order MAR Action Action Date Dose Rate Site acetaminophen tablet 1,000 mg (TYLENOL) 1,000 mg, oral, Once, On Wed06/24/22 at 1000, For 1 dose Given 06/24/2022 10:33 AM CDT 1,000 mg diphenhydrAMINE capsule 25 mg (BENADRYL) 25 mg, oral, Once, On Wed06/24/22 at 1015, For 1 dose Given 06/24/2022 10:33 AM CDT 25 mg methylPREDNISolone sod succinate (PF) injection 40 mg (SOLU-Medrol) 40 mg, intravenous, Once, On Wed06/24/22 at 1000, For 1 dose, Activate vial to a final concentration of 40 mg/mL Given 06/24/2022 10:59 AM CDT 40 mg rituximab-pvvr 1,000 mg in NaCl 0.9% IVPB (RUXIENCE) 1,000 mg, intravenous, Once, On Wed06/24/22 at 1015, For 1 dose, Adult infusion rate: Initial infusion: Start at 50 mg/hour. If adverse events do not occur, may increase by 50 mg/hour every 30 minutes to max 400 mg/hour. If adverse events occur, slow or stop, then continue at 1/2 previous rate. Subsequent infusions: Start at 100 mg/hour and increase by 100 mg/hour every 30 minutes to max 400 mg/hour if no adverse events occur. Peds infusion rate: Initial infusion: Start at a rate of 0.5 mg/kg/hour (maximum of 50 mg/hour) for one hour. If no hypersensitivity or infusion related events, increase infusion rate by 0.5 mg/kg/hour (maximum 50 mg increase per hour) every 30 minutes, to a maximum rate of 400 mg/hour. Subsequent infusions: Start at a rate of 1 mg/kg/hour (maximum of 50 mg/hour) for one hour. If no hypersensitivity or infusion related events, increase infusion rate by 1 mg/kg/hour (maximum 50 mg increase per hour), every 30 minutes, to a maximum rate of 400 mg/hour., Restriction Criteria (Pharmacy will review and approve if criteria met): Meets rituximab algorithm criteria Rate/Dose Change 06/24/2022 12:32 PM CDT 400 mL/hr Rate/Dose Change 06/24/2022 11:59 AM CDT 300 mL /hr Rate/Dose Change 06/24/2022 11:42 AM CDT 200 mL /hr sodium chloride 0.9 % injection 3 mL 3 mL, intra-catheter, As needed, line care, Starting on Wed06/24/22 at 1012, Prior to and following infusion and between multiple consecutive infusions. Given 06/24/2022 2:52 PM CDT 3 mL Given 06/24/2022 10:59 AM CDT 3 mL Given 06/24/2022 10:55 AM CDT 3 mL documented in this encounter Additional Health Concerns Assessment Noted Time PHQ-9 Depression Total Score: 2 10/13/19 14 10:45 AM CDT documented as of this encounter Care Teams Stemming Machine Operator Relationship Specialty Start Date End Date Elsewhere, Pcp PCP - General Family Medicine 12/29/19 documented as of this encounter
--- OUTSIDE RECORDS SUMMARY | 2023-04-25 19:05 | XMS_ITS | Encounter Summary ---
Author Name Unknown Organization [facility] Address [address] [place] [address] Care Team Providers Care Sushi Chef Name Role Phone Elsewhere, Pcp Primary Care Provider Unavailabl e Encounter Details Date Type Department Care Team (Latest Contact Info) Description 08/03/2022 2:17 PM CDT - 08/03/2022 2:43 PM CDT Hospital Encounter Department of Laboratory Medicine and Pathology, [facility] in [place], [place] [address] [place] [phone] Sushant Vicente M.D. [address] [place] [phone] Primary Malignant Neoplasm Of Prostate (HCC) Discharge [...] week 02/03/2022 How often do you attend [facility] or roman catholic services? Patient declined 02/03/2022 Do you belong to any clubs o r organizations such as zoroastrian groups, unions, fraternal or athletic groups, or [...] Answer Date Recorded PHQ-2 Score 2 09/24/2021 [facility] - Occupational Stress Questionnaire Answer Date [...] mg x 2, 2 weeks apart at [facility] on 06/10/2022 and 06/24/2022. 0 06/10/2022 [...] capsule Take by mouth daily. 0 11/27/2021 triamcinolone (KENALOG) 0.1 % cream Apply topically. 0 11/27/2021 UNABLE TO FIND every 6 (six) weeks. Pluvicco injection 0 09/11/2022 documented as of this encounter Plan of Treatment Upcoming Encounters Date Type Department Care Team (Late st Contact Info) Description 04/26/2023 3:15 PM GASOLINE ATTENDANT Appointment Department of Radiation Oncology in [place], [place] [address] [place] [phone] Gurwinder Tejeda M.D. [address] [place] [phone] 05/03/2023 1:00 PM GASOLINE ATTENDANT Appointment Department of Laboratory Medicine in [address] [phone] Carson Fletcher M.D. [address] [place] [phone] 05/03/2023 1:10 PM GASOLINE ATTENDANT Appointment Department of Laboratory Medicine in [address] [phone] Carson Fletcher M.D. [address] [place] [phone] 2023 2:30 PM GASOLINE ATTENDANT Virtual Visit Division of Pulmonary Medicine in [address] [phone] Carson Fletcher M.D. [address] [place] [phone] 07/05/2023 11:20 AM CDT Lab Department of Laboratory Medicine and Pathology, [place], [place] [address] [place] [phone] Kallie Rosales APRN, C.N.P., M.S. [address] [place] [phone] 07/05/2023 12:45 PM CDT Appointment Department of Radiology, [facility], in [place], [place] [address] [place] [phone] Kallie Rosales APRN, C.N.P., M.S. [address] [place] [phone] 07/06/2023 11:30 AM CDT Office Visit Department of Urology in [place], [place] [address] [place] [phone] Sushant Vicente M.D. [address] [place] [phone] documented as of this encounter Procedures Procedure Name Priority Date/Time Associated Diagnosis Comments ALANINE AMINOTRANSFERASE (ALT), S/P Routine 08/03/2022 2:31 PM CDT Primary Malignant Neoplasm Of Prostate (HCC) ASPARTATE AMINOTRANSFERASE (AST), S/P Routine 08/03/2022 2:31 PM CDT Primary Malignant Neoplasm Of Prostate (HCC) TESTOSTERONE, TOTAL BY MASS SPECROMETRY, S Routine 08/03/2022 2:31 PM CDT Primary Malignant Neoplasm Of Prostate (HCC) PROSTATE-SPECIFIC AG (PSA) DIAGNOSTIC, S Routine 08/03/2022 2:31 PM CDT Primary Malignant Neoplasm Of Prostate (HCC) POTASSIUM, S/P Routine 08/03/2022 2:31 PM CDT Primary Malignant Neoplasm Of Prostate (HCC) ALKALINE PHOSPHATASE, S/P Routine 08/03/2022 2:31 PM CDT Primary Malignant Neoplasm Of Prostate (HCC) BILIRUBIN DIRECT, S/P Routine 08/03/2022 2:31 PM CDT Primary Malignant Neoplasm Of Prostate (HCC) BILIRUBIN, TOT, S/P Routine 08/03/2022 2 :31 PM CDT Primary Malignant Neoplasm Of Prostate (HCC) documented in this encounter Results * Bilirubin, Total (08/03/2022 2:31 PM CDT) Bilirubin, Total, S 0.2 <=1.2 mg/dL 08/03/2022 3:49 PM CDT DTL Blood (Blood, Venous) 08/03/2022 2:31 PM CDT 08/03/2022 3:14 PM CDT Sushant Vicente M.D. LAB BLOOD ADD-ON Performing Organization Address City/[facility] [place] [address] * Bilirubin, Direct (08/03/2022 2:31 PM CDT) Bilirubin, Direct, S <0.2 0.0 - 0.3 mg/dL 08/03/2022 3:49 PM CDT DTL Blood (Blood, Venous) 08/03/2022 2:31 PM CDT 08/03/2022 3:14 PM CDT Sushant Vicente M.D. LAB BLOOD ADD-ON Performing Organization Address City/[facility] Co de Phone Number [address] [address], [place] [address] * (ABNORMAL) Testosterone, Total by Mass Spectrometry, Serum (08/03/2022 2:31 PM CDT) Testosterone, Total by Mass Spectrometry, Serum <7.0(L) 240 - 950 ng/dL 08/05/2022 1:04 PM CDT [facility] Comment: ----ADDITIONAL INFORMATION---- Testing performed by Liquid Chromatography-Tandem Mass Spectrometry (LC-MS/MS). This test was developed and its performance characteristics determined by [facility] in a manner consistent with CLIA requirements. This test has not been cleared or approved by the U.S. Food and Drug Administration. Blood (Blood, Venous) 08/03/2022 2:31 PM CDT 08/04/2022 6:24 AM CDT Sushant Vicente M.D. LAB BLOOD NON ADD-ON [facility] [address] [place] [address] [facility] [address] [place] [address] [place] [address] * Potassium (08/03/2022 2:31 PM CDT) Potassium, S 4.5 3.6 - 5.2 mmol/L 08/03/2022 3:49 PM CDT DTL Blood (Blood, Venous) 08/03/2022 2:31 PM CDT 08/03/2022 3:14 PM CDT Sushant Vicente M.D. LAB BLOOD ADD-ON Performing Organization Address [facility] de Phone Number [facility] [address] [place] [address], [facility] 200 [place] [address] * PSA (Prostate-Specific Antigen), Diagnostic (08/03/2022 2:31 PM CDT) Prostate-Specific Ag 6.5 <=6.5 ng/mL 08/03/2022 3:49 PM CDT DTL Comment: ----ADDITIONAL INFORMATION---- The testing method is an electrochemiluminescence assay manufactured by [employer] and performed on the Modular or Lana system. Values obtained with different assay methods or kits may be different and cannot be used interchangeably. Test results cannot be interpreted as absolute evidence for the presence or absence of malignant disease. Blood (Blood, Venous) 08/03/2022 2:31 PM CDT 08/03/2022 3:14 PM CDT Narrative Authorizing Provider Result Derek Vicente M.D. LAB BLOOD ADD-ON Performing Organization Address City/[facility]/ZIP Co de Phone Number [facility] 200 [place], [place] [address] 200 [place] [address] * AST (Aspartate Aminotransferase) (08/03/2022 2:31 PM CDT) Aspartate Aminotransferase (AST), S 28 8 - 48 U/L 08/03/2022 3:49 PM CDT DTL Blood (Blood, Venous) 08/03/2022 2:31 PM CDT 08/03/2022 3:14 PM CDT Sushant Vicente M.D. LAB BLOOD ADD-ON Performing Organization Address City/[facility]/ZIP Co de Phone Number [facility] [address] [place], [place] [address] 200 [place] [address] * ALT (Alanine Aminotransferase) (08/03/2022 2:31 PM CDT) Alanine Aminotransferase (ALT), S 23 7 - 55 U/L 08/03/2022 3:49 PM CDT DTL Blood (Blood, Venous) 08/03/2022 2:31 PM CDT 08/03/2022 3:14 PM CDT Sushant Vicente M.D. LAB BLOOD ADD-ON [facility] [address] [place], [place] [address] 200 [place] [address] * Alkaline Phosphatase (08/03/2022 2:31 PM CDT) Alkaline Phosphatase, S 125 40 - 129 U/L 08/03/2022 3:49 PM CDT DTL Blood (Blood, Venous) 08/03/2022 2:31 PM CDT 08/03/2022 3:14 PM CDT Sushant Vicente M.D. LAB BLOOD ADD-ON [facility] [address] [place] [address], [facility] [address] [place] [address] documented in this encounter Visit Diagnoses Diagnosis Primary Malignant Neoplasm Of Prostate (HCC) documented in this encounter Additional Health Concerns Infection Onset Date Last Indicated Resolved Time Protective Environment 07/31/2022 07/31/2022 Assessment Noted Time PHQ-9 Depression Total Score: 2 10/13/19 14 10:45 AM CDT documented as of this encounter Care Teams Sushi Chef Relationship Specialty Start Date End Date Elsewhere, Pcp PCP - General Family Medicine 12/29/19 documented as of this encounter
--- OUTSIDE RECORDS SUMMARY | 2023-04-25 19:05 | XMS_ITS | Encounter Summary ---
Author Name Unknown Organization [facility] Address [address] [place] [address] Care Team Providers Care Treatment Counselor Name Role Phone Elsewhere, Pcp Primary Care Provider Unavailabl e Reason for Referral * MRI/CAT/PET Scan (Routine) - Closed Specialty Diagnoses / Procedures Referred By Contac t Referred To Contact Diagnoses Primary Malignant Neoplasm Of Prostate (HCC) Procedures PET CT Choline [place] [address] [facility] Referral ID Status Reason Start Date Expiration Date Visits Re quested Visits Authorized [id number] Closed 06/09/2022 06/09/2023 1 1 Reason for Visit * MRI/CAT/PET Scan (Routine) - Closed Specialty Diagnoses / Procedures Referred By Contradha callejas Referred To Contact Diagnoses Primary Malignant Neoplasm Of Prostate (HCC) Procedures PET CT Choline [place] [address] [facility] Referral ID Status Reason Start Date Expiration Date Visits Re quested Visits Authorized [id number] Closed 06/09/2022 06/09/2023 1 1 Encounter Details Date Type Department Care Team (Latest Contact Info) Description 08/03/2022 2:44 PM CDT - 08/03/2022 11:59 PM CDT Hospital Encounter Department of Radiology, [facility], in [place], [place] [address] [place] [phone] Sushant Vicente M.D. [address] [place] [phone] Primary Malignant Neoplasm Of Prostate (HCC) Discharge [...] week 02/03/2022 How often do you attend [facility] or judaism services? Patient declined 02/03/2022 Do you belong [...] Answer Date Recorded PHQ-2 Score 2 [facility]/20[facility] - Occupational Stress Questionnaire Answer [...] No 02/03/2022 Housing Stability Vital Sign Answer Waltre e Recorded In the last 12 months, [...] Children on 06/10/2022 and 06/24/2022. 0 06/10/2022 zinc [...] st Contact Info) Description 04/26/2023 3:15 PM RETURN TO FACTORY CLERK Appointment Department of Radiation Oncology in [place], [place] [address] [place] [address] Gurwinder Tejeda M.D. [address] [place] [phone] 05/03/2023 1:00 PM RETURN TO FACTORY CLERK Appointment Department of Laboratory Medicine in [address] [phone] Carson Fletcher M.D. [address] [place] [phone] 05/03/2023 1:10 PM RETURN TO FACTORY CLERK Appointment Department of Laboratory Medicine in [address] [phone] Carson Fletcher M.D. [address] [place] [phone] 2023 2:30 PM RETURN TO FACTORY CLERK Virtual Visit Division of Pulmonary Medicine in [place], [place] [address] [place] [phone] Carson Fletcher M.D. [address] [place] [phone] 07/05/2023 11:20 AM CDT Lab Department of Laboratory Medicine and Pathology, [facility], in [place], [place] [address] [place] [phone] Kallie Rosales APRN, C.N.P., M.S. [address] [place] [phone] 07/05/2023 12:45 PM CDT Appointment Department of Radiology, [facility], in [place], [place] [address] [place] [phone] Kallie Rosales APRN, C.N.P., M.S. [address] [place] [phone] 07/06/2023 11:30 AM CDT Office Visit Department of Urology in [place], [place] [address] [place] [phone] Sushant Vicente M.D. [address] [place] [phone] documented as of this encounter Procedures Procedure Name Priority Date/Time Associated Diagnosis Comments PET CT CHOLINE RAD - Routine (most inpatients and all outpatients) 08/03/2022 4:32 PM CDT Primary Malignant Neoplasm Of Prostate (HCC) documented in this encounter Results * PET CT Choline (08/03/2022 4:32 PM CDT) Anatomical Region Laterality Modality Body, Nuclear Medicine PET R ST LOS, PET ARZ LOS, Nuclear Medicine PET FLA LOS, Nuclear Medicine N/A Positron Emission Tomography (PET), Positron Emission Tomography (PET) 08/03/2022 4:50 PM CDT Impressions 08/03/2022 5:09 PM CDT 1. Complete metabolic response in previously seen osseous metastatic disease; however, there are new radiotracer-avid osseous metastases, as detailed in the findings. 2. Increasing thoracic john uptake, which may be granulomatous/reactive; however, disease involvement is possible. Narrative 08/03/2022 5:09 PM CDT EXAM: ??PET CT CHOLINE RADIOPHARMACEUTICAL/MEDS: Route: intravenous choline C 11 injection (CHOLINE C-11),17.9 millicurie TECHNIQUE: ??C-11 Choline PET/CT scan was performed from the vertex through the thighs with low dose, non-contrast, free-breathing CT images for attenuation correction and anatomic localization (AC/AL), with imaging beginning at approximately 5 minutes after radiotracer injection. COMPARISON: ??Multiple prior prostate PET/CTs, most recently from 04/27/2022. INDICATION: ??Evaluation for metastatic prostate cancer. Remote prostatectomy. Salvage radiation. ADT. Chemotherapies. Interval completion of Pluvicto therapy. Subsequent treatment strategy. Rising PSA. The patient reports no recent vaccinations. FINDINGS: PROSTATE BED: None. LYMPH NODES: Increasing hilar and mediastinal john uptake, which may be reactive/granulomatous, but may be involved by disease. OSSEOUS DISEASE: New, focal radiotracer uptake in a midthoracic vertebral body (Q.Clear image 100). New, small focal uptake in a mid cervical vertebral body (Q clear image 65). New, focal radiotracer uptake involving a low right thoracic pedicle (Q.Clear image 122). New, focal uptake in the posterior elements of a thoracolumbar vertebral body on the left (Q.Clear image 177). New, focal, mild uptake in the posterior right iliac bone (Q.Clear image 221). Numerous areas of previous osseous metastatic disease are not significantly avid, consistent with treatment response. OTHER METASTATIC DISEASE: None. Additional findings on the noncontrast low-dose CT: Decreasing scarring/fibrosis at the periphery of the lung bases. Vascular calcifications. Colonic diverticulosis. Prostatectomy. Procedure Note Johann Riddle M.D. - 08/03/2022 EXAM: PET CT CHOLINE RADIOPHARMACEUTICAL/MEDS: Route: intravenous choline C 11 injection (CHOLINE C-11),17.9 millicurie TECHNIQUE: C-11 Choline PET/CT scan was performed from the vertex throughthe thighs with low dose, non-contrast, free-breathing CT images for attenuation correction andanatomic localization (AC/AL), with imaging beginning at approximately 5 minutes after radiotracerinjection. COMPARISON: Multiple prior prostate PET/CTs, most recently from04/27/2022. INDICATION: Evaluation for metastatic prostate cancer. Remoteprostatectomy. Salvage radiation. ADT. Chemotherapies. Interval completion of Pluvicto therapy. Subsequenttreatment strategy. Rising PSA. The patient reports no recent vaccinations. FINDINGS: PROSTATE BED: None. LYMPH NODES: Increasing hilar and mediastinal john uptake, which may bereactive/granulomatous, but may be involved by disease. OSSEOUS DISEASE: New, focal radiotracer uptake in a midthoracic vertebralbody (Q.Clear image 100). New, small focal uptake in a mid cervical vertebral body (Q clear image65). New, focal radiotracer uptake involving a low right thoracic pedicle(Q.Clear image 122). New, focal uptake in the posterior elements of a thoracolumbar vertebralbody on the left (Q.Clear image 177). New, focal, mild uptake in the posterior right iliac bone (Q.Clear [id number]). Numerous areas of previous osseous metastatic disease are notsignificantly avid, consistent with treatment response. OTHER METASTATIC DISEASE: None. Additional findings on the noncontrast low-dose CT: Decreasingscarring/fibrosis at the periphery of the lung bases. Vascular calcifications. Colonic diverticulosis.Prostatectomy. IMPRESSION: 1. Complete metabolic response in previously seen osseous metastaticdisease; however, there are new radiotracer-avid osseous metastases, as detailed in the findings. 2. Increasing thoracic john uptake, which may be granulomatous/reactive;however, disease involvement is possible. Sushant [place] PROCEDURES documented in this encounter Visit Diagnoses Diagnosis Primary Malignant Neoplasm Of Prostate (HCC) documented in this encounter Administered Medications Inactive Administered Medications - up to 3 most recent administrations Medication Order MAR Action Action Date Dose Rate Site choline C 11 injection (CHOLINE C-11) 10-20 millicurie, intravenous, Once, On 08/03/22 at 1530, For 1 dose, Imaging Protocol Orders Given 08/03/2022 3:47 PM CDT 17.9 millicuries Right Antecubital documented in this encounter Additional Health Concerns Infection Onset Date Last Indicated Resolved Time Protective Environment 07/31/2022 07/31/2022 Assessment Noted Time PHQ-9 Depression Total Score: 2 10/13/19 14 10:45 AM CDT documented as of this encounter Care Teams Treatment Counselor Relationship Specialty Start Date End Date Elsewhere, Pcp PCP - General Family Medicine 12/29/19 documented as of this encounter
--- OUTSIDE RECORDS SUMMARY | 2023-04-25 19:05 | XMS_ITS | Encounter Summary ---
Author Name Unknown Organization [facility] Address [address] [place] [address] Care Team Providers Care Digital Forensic Examiner Name Role Phone Elsewhere, Pcp Primary Care Provider Unavailabl e Reason for Visit * Reason Onset Date Comments Phone Contact 08/25/2022 Encounter Details Date Type Department Care Team ([facility] st Contact Info) Description 08/25/2022 Clinical Communication Department of Urology in [place], [place] [address] [place] [phone] Sushant Vicente M.D. [address] [place] [phone] Phone Contact Social History Tobacco Use Types Packs/Day Years [...] often do you attend chur ch or congregational services? Patient declined 02/03/2022 Do you belong to any clubs o r organizations such as hoahaoism groups, unions, fraternal or athletic groups, or [...] Answer Date Recorded PHQ-2 Score 2 09/24/2021 [facility] Questionnaire Answer Date [...] place to sleep or slept in a longterm (including now)? No 02/03/2022 Nutrition Answer Date [...] encounter Miscellaneous Notes * Telephone Encounter - Virgil Santos R.N., CURN - 08/26/2022 12:03 PM CDT Noted that Dr. Mott also is starting the patient on Zytiga. We will see patient for his ADT injection later this month. documented in this encounter Plan of Treatment Upcoming Encounters Date Type Department Care Team (Late st Contact Info) Description 04/26/2023 3:15 PM SALES PROJECT MANAGER Appointment Department of Radiation Oncology in [place], [place] [address] [place] [phone] Gurwinder Tejeda M.D. [address] [place] [phone] 05/03/2023 1:00 PM SALES PROJECT MANAGER Appointment Department of Laboratory Medicine in [address] [phone] Carson Fletcher M.D. [address] [place] [phone] 05/03/2023 1:10 PM SALES PROJECT MANAGER Appointment Department of Laboratory Medicine in [address] [phone] Carson Fletcher M.D. [address] [place] [phone] 2023 2:30 PM SALES PROJECT MANAGER Virtual Visit Division of Pulmonary Medicine in [place], [place] [address] [place] [phone] Carson Fletcher M.D. [address] [place] [phone] 07/05/2023 11:20 AM CDT Lab Department of Laboratory Medicine and Pathology, [place], [place] [address] [place] [phone] Kallie Rosales, ZUNILDA, C.N.P., M.S. [address] [place] [phone] 07/05/2023 12:45 PM CDT Appointment Department of Radiology, [place], [place] [address] [place] [phone] Kallie Rosales APRN, C.N.P., M.S. [address] [place] [address] 07/06/2023 11:30 AM CDT Office Visit Department of Urology in [place], [place] [address] [place] [phone] Sushant Vicente M.D. [address] [place] [phone] documented as of this encounter Visit Diagnoses Not on filedocumented in this encounter Additional Health Concerns Infection Onset Date Last Indicated Resolved Time Protective Environment 07/31/2022 07/31/2022 Assessment Noted Time PHQ-9 Depression Total Score: 2 10/13/19 14 10:45 AM CDT documented as of this encounter Care Teams Digital Forensic Examiner Relationship Specialty Start Date End Date Elsewhere, Pcp PCP - General Family Medicine 12/29/19 documented as of this encounter
--- OUTSIDE RECORDS SUMMARY | 2023-04-25 19:05 | XMS_ITS | Encounter Summary ---
Author Name Unknown Organization 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 [address] [place] [address] [facility] Referral ID Status Reason Start Date Expiration Date Visits Re quested Visits Authorized [id number] Closed 06/17/2022 06/17/2023 1 1 Reason for Visit * Reason Onset Date Comments Pre-visit Testing Orders 06/12/2022 Encounter Details Date Type Department Care Team (Latest Contact Info) Description 06/12/2022 Clinical Communication Division of Pulmonary Medicine in [place], [place] [address] [place] [address] Carson [place] [address] Pre-visit Testing Orders Social History Tobacco Use [...] week 02/03/2022 How often do you attend [facility] or islam services? Patient declined 02/03/2022 Do [...] Answer Date Recorded PHQ-2 Score 2 09/24/2021 [facility] - Occupational [...] place to sleep or slept in a usp (including now)? No 02/03/2022 Nutrition Answer Date [...] st Contact Info) Description 04/26/2023 3:15 PM ARCHITECTURAL MODELER Appointment Department of Radiation Oncology in [address] [phone] Gurwinder Tejeda M.D. [address] [place] [phone] 05/03/2023 1:00 PM ARCHITECTURAL MODELER Appointment Department of Laboratory Medicine in [address] [phone] Carson Fletcher M.D. [address] [place] [phone] 05/03/2023 1:10 PM ARCHITECTURAL MODELER Appointment Department of Laboratory Medicine in [address] [phone] Carson Fletcher M.D. [address] [place] [phone] 2023 2:30 PM ARCHITECTURAL MODELER Virtual Visit Division of Pulmonary Medicine in [place], [place] [address] [place] [phone] Carson Fletcher M.D. [address] [place] [phone] 07/05/2023 11:20 AM CDT Lab Department of Laboratory Medicine and Pathology, [facility], in [place], [place] [address] [place] [phone] Kallie Rosales APRN, C.N.P., M.S. [address] [place] [phone] 07/05/2023 12:45 PM CDT Appointment Department of Radiology, [facility] in [place], [place] [address] [place] [phone] Kallie Rosales APRN, C.N.P., M.S. [address] [place] [phone] 07/06/2023 11:30 AM CDT Office Visit Department of Urology in [address] [phone] Sushant Vicente M.D. 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 ?? Carson Fletcher M.D. [facility] CT PROCEDURES * (ABNORMAL) Urinalysis with Microscopic: Urine, Midstream [...] AM CDT 09/14/2022 9:46 AM CDT Carson Feltcher M.D. [place] [address], [facility] [address] [place] [address] * (ABNORMAL) CD20 on B Cells (09/14/2022 9:06 AM CDT) Pathologist [facility] CD45 Absolute 0.73(L) 1.00 - 3.33 thou/mcL [...] reagent. Its performance characteristics were determined by [facility] in a manner consistent with CLIA requirements. This test has not been cleared or approved by the U.S. Food and Drug Administration. Blood (Blood, Venous) 09/14/2022 9:06 AM CDT 09/14/2022 10:54 AM CDT Carson Fletcher M.D. LAB BLOOD ADD-ON [facility] [address] [place] [address] [facility] [address] [place] [address] [place] [address] * Immunoglobulin G (IgG) (09/14/2022 9:06 AM CDT) Immunoglobulin G (IgG), S [phone] - 1590 mg/dL 09/14/2022 3:57 PM CDT [facility] Blood (Blood, Venous) 09/14/2022 9:06 AM CDT 09/14/2022 1:24 PM CDT Carson Fletcher M.D. LAB BLOOD ADD-ON Performing Organization Address City/[facility]/ZIP Co de Phone Number [facility] [address] [place] [address] [facility] [address] [place] [address] * Uric Acid (09/14/2022 9:06 AM CDT) Uric Acid, S 3.7 3.7 - 8.0 mg/dL 09/14/2022 10:16 AM CDT DT Blood (Blood, Venous) 09/14/2022 9:06 AM CDT 09/14/2022 9:49 AM CDT Carson Fletcher M.D. LAB BLOOD ADD-ON [facility] [address] [place] [address], [place] [facility] [address] [place] [address] * Phosphorus Inorganic (09/14/2022 9:06 AM CDT) Phosphorus (Inorganic), S 3.5 2.5 - 4.5 mg/dL 09/14/2022 10:16 AM CDT DTL Blood (Blood, Venous) 09/14/2022 9:06 AM CDT 09/14/2022 9:49 AM CDT Carson Fletcher M.D. LAB BLOOD ADD-ON [facility] [address] [place] [address], [facility] [address] [place] [address] * Glucose, Fasting (09/14/2022 9:06 AM CDT) Glucose, P 90 70 - 100 mg/dL 09/14/2022 10:19 AM CDT DTL Last Intake 13 hr 09/14/2022 9:49 AM CDT DTL Blood (Blood, Venous) 09/14/2022 9:06 AM CDT 09/14/2022 9:49 AM CDT Carson Fletcher M.D. LAB BLOOD NON ADD-ON [facility] [address] [place] [address], [facility] [address] [place] [address] * Sedimentation Rate (09/14/2022 9:06 AM CDT) Sedimentation Rate, B 27 3 - 28 mm/h 09/14/2022 10:55 AM CDT DTL Blood (Blood, Venous) 09/14/2022 9:06 AM CDT 09/14/2022 9:30 AM CDT Carson Fletcher M.D. LAB BLOOD ADD-ON Performing Organization Address City/[facility]/ZIP Co de Phone Number [facility] [address] [place], [place] [phone] [place] [address] * CRP (C-Reactive Protein) (09/14/2022 9:06 AM CDT) Pathologist [facility] C-Reactive Protein (CRP), S <3.0 <5.0 mg/L 09/14/2022 10:16 AM CDT DTL Blood (Blood, Venous) 09/14/2022 9:06 AM CDT 09/14/2022 9:49 AM CDT Carson Fletcher M.D. LAB BLOOD ADD-ON Performing Organization Address [facility] Co de Phone Number [facility] [address] [place], [place] [phone] [place] [address] * (ABNORMAL) Comprehensive Metabolic Panel (09/14/2022 9:06 AM CDT) Pathologist [facility] Potassium, S 3.9 3.6 - 5.2 mmol/L [...] CDT Carson Fletcher M.D. LAB BLOOD ADD-ON [address] [address], [facility] [address] * (ABNORMAL) CBC with Differential, Blood (09/14/2022 [...] CDT Carson Fletcher M.D. LAB BLOOD ADD-ON [address] [address], [facility] [address] [place] [address] * (ABNORMAL) ANCA (Antineutrophil Cytoplasmic Antibodies) Vasculitis Panel (09/14/2022 9:06 AM CDT) Myeloperoxidase Ab, S <0.2 <0.4 (Negative ) U 09/14/2022 2:43 PM CDT [facility] Proteinase 3 Ab (PR3), S 7.4(H) <0.4 (Negative ) U 09/14/2022 2:43 PM CDT [facility] Comment:Interpretation: Posi tive (>=1.0) Blood (Blood, Venous) 09/14/2022 9:06 AM CDT 09/14/2022 1:21 PM CDT Carson Fletcher M.D. LAB BLOOD ADD-ON [facility] [address] [place] [address] [facility] [address] 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
--- OUTSIDE RECORDS SUMMARY | 2023-04-25 19:05 | XMS_ITS | Encounter Summary ---
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 [address] [place] [phone] [facility] Referral ID Status Reason Start Date Expiration Date Visits Re quested Visits Authorized [id number] Closed 08/04/2022 08/04/2023 1 1 * Outpatient (Routine) - Closed Specialty Diagnoses / Procedures Referred By Brittni callejas Referred To Contact Urology Cristal Solis APRN, C.N.P., M.S.NTavon [address] [place] [phone] Sushant Vicente M.D. [address] [place] [phone] Referral ID Status Reason Start Date Expiration Date Visits Re quested Visits Authorized [id number] Closed 08/04/2022 08/03/2025 1 1 Reason for Visit * Outpatient (Routine) - Closed Specialty Diagnoses / Procedures Referred By Brittni callejas Referred To Contact Urology Sushant Vicente M.D. [address] [place] [phone] [facility] Referral ID Status Reason Start Date Expiration Date Visits Re quested Visits Authorized [id number] Closed 06/09/2022 06/08/2025 1 1 Encounter Details Date Type Department Care Team (Late st Contact Info) Description 08/04/2022 1:30 PM CDT Office Visit Department of Urology in [place], [place] [address] [place] [phone] Sushant Vicente M.D. [address] [place] [phone] Primary Malignant Neoplasm Of Prostate (HCC) (Primary [...] often do you attend [facility] or [facility] services? Patient declined 02/03/2022 Do you belong to any clubs o r organizations such as tenriism groups, unions, fraternal or athletic groups, or [...] as of this encounter Progress Notes * Cristal Solis, ZUNILDA, C.N.P., M.S.N. - 08/04/2022 1:30 PM CDT SUBJECTIVE CHIEF COMPLAINT Advanced prostate cancer follow up. Evaluated in conjunction with Dr. Vicente. HISTORY OF PRESENT ILLNESS Mr. Lashell Gates is a 77 y.o. pleasant gentleman, who presents today for repeat evaluation foradvanced prostate cancer. His oncologic history is as follows: 1. July 01, 2004: underwent robotic-assisted radical prostatectomy by Dr. Duque. Pathology revealed Kenyon 3 + 3, pT2c, N0, MX, R0 adenocarcinoma of the prostate. 2. November 29, 2013: completed salvage external beam radiation therapy with Dr. Cole at [place], [place] for a biochemical recurrence. 3. July [...] 21. June 05, 2020: PSA 4.9 ng/mL. C11 choline PET scan does not reveal [...] plus docetaxel chemotherapy through Dr. Mott at [facility]. Notably, patient does have high tumor [...] November 11, 2021: PSA 32.8 ng/ml. Received first cycle treatment of 177 PSMA Lutetium. 32. December 22, 2021: PSA 29.3 ng/ml. The patient continues on Lupron injections every 3 months. Received second cycle treatment of 177 PSMA Lutetium. He noted increased fatigue with his treatment. 33. February 02, 2022: PSA declined to 17.2 ng/mL. CBC and CMP were stable to proceed with his 3rd cycle treatment of 177 PSMA Lutetium. PSMA scan demonstrated decreased uptake within the several osseous and john metastasis. No new lesions. Specifically T7 vertebral body as SUV max now 5.5 from prior 17.5. His PSMA expressions score is 2. 34. March 17, 2022: PSA 10.3 ng/mL. Received 4th cycle treatment of 177 PSMA Lutetium. 35. April 27, 2022: PSA 5.7 ng/ml. Presents today prior to 5th cycle treatment of 177 PSMA Lutetium. Continues on hormone therapy every 3 months. He does note decreased appetite and taste. Has significant fatigue. 36. June 09, 2022: PSA was 3.3 ng per mL. Hemoglobin was 12.9, platelet count 208, WBC count 9.8. CMP panel was normal. Patient now presents for cycle 6 of treatment with 177 PSMA Lutetium. Patient is active with no restrictions ECOG performance score 0. Received a 3 month leuprolide injection. In6 weeks with a C11 PET choline scan 37. August 04, 2022: PSA increased to 6.5 ng/mL from prior 3.3 on June 09. Potassium and hepatic panel within normal range. Testosterone pending. His C11 PET choline scan demonstrates a few new choline avid osseous metastasis, specifically in the midthoracic vertebral body, mid cervical vertebral body, low right thoracic pedicle, posterior elements of the left 3rd thoracolumbar vertebral body, and right iliac bone. There was also uptake within the hilar mediastinal nodes which may be reactive/granulomatosis, but ultimately indeterminate. 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 They plan to change his medical therapy to Rituximab from Cellcept. He has had 2 cycles of Rituximab so far. OBJECTIVE REVIEW OF SYSTEMS Constitutional: Positive for fatigue, loss of appetite and night sweats. Respiratory: Positive for coughing up mucus (phlegm) and shortness of breath. Cardiovascular: Positive for chest pain, pressure or tightness. Gastrointestinal: Positive for difficulty swallowing. Genitourinary: Positive for urgency and frequent urination. Musculoskeletal: Positive for pain or stiffness in the joints and muscle pain/stiffness. Neurological: Positive for numbness or shooting pain in hands, arms, legs, or feet. Psychiatric/Behavioral: Positive for erectile dysfunction. The following systems were negative: Skin, Eyes, ENT, Hematologic, Psychiatric PHYSICAL EXAM Constitutional: He is oriented to person, place, and time. He appears well-developed. Pulmonary/Chest: Effort normal. Neurological: He is alert and oriented to person, place, and time. LABORATORY No components found for: PSAPSA No components found for: SPSA Lab Results Component Value Date/Time PSA 6.5 08/03/2022 02:31 PM PSA 3.3 06/09/2022 09:28 AM PSA 5.7 04/27/2022 11:13 AM PSA 10.3 (H) 03/17/2022 07:16 AM PSA 17.2 (H) 02/02/2022 11:39 AM PSA 29.3 (H) 12/22/2021 10:35 AM PSA 32.8 (H) 11/10/2021 08:33 AM PSA 9.6 (H) 09/23/2021 09:45 AM PSA 10.5 (H) 06/25/2021 12:45 PM PSA 8.8 (H) 02/21/2021 11:14 AM PSA 19.8 (H) 12/19/2020 11:47 AM PSA 8.5 (H) 08/29/2020 09:35 AM PSA 4.9 06/05/2020 11:25 AM PSA 5.9 03/06/2020 02:40 PM PSA 1.9 11/09/2019 10:28 AM PSA 1.9 08/09/2019 07:13 AM PSA 2.1 05/22/2019 09:09 AM PSA 2.7 03/09/2019 11:08 AM PSA 5.9 01/26/2019 09:12 AM PSA 35.5 (H) 11/22/2018 10:23 AM PSA 15.6 (H) 08/03/2018 10:00 AM PSA 0.58 03/08/2018 12:02 PM PSA <0.10 11/16/2017 09:34 AM PSA 3.0 08/06/2017 07:13 AM PSA 0.14 03/09/2017 10:47 AM PSA <0.10 12/31/2016 09:06 AM PSA <0.10 11/24/2016 11:02 AM PSA 1.9 08/10/2016 07:45 AM PSA 0.13 12/24/2015 08:35 AM PSA <0.10 07/30/2015 10:40 AM PSA <0.10 03/08/2015 07:34 AM PSA <0.10 11/09/2014 07:44 AM PSA 3.2 07/25/2014 08:13 AM PSA 0.86 03/07/2014 10:44 AM PSA 0.98 12/26/2013 01:08 PM Lab Results Component Value Date/Time ALKPHOS 125 08/03/2022 02:31 PM ALKPHOS 123 02/28/2021 02:08 PM AST 28 08/03/2022 02:31 PM AST 33 09/23/2021 09:45 AM AST 32 12/31/2016 09:06 AM ALT 23 08/03/2022 02:31 PM BILITOT 0.2 08/03/2022 02:31 PM BILITOT 0.5 09/23/2021 09:45 AM BILIDIR <0.2 08/03/2022 02:[address] Choline Result Date: 08/03/2022 FINDINGS: PROSTATE BED: None. LYMPH NODES: Increasing [...] lung bases. Vascular calcifications. Colonic diverticulosis. Prostatectomy. IMPRESSION: 1. Complete metabolic response in previously seen osseous metastatic disease; however, there are new radiotracer-avid osseous metastases, as detailed in the findings. 2. Increasing thoracic john uptake, which may be granulomatous/reactive; however, disease involvement is possible. 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 Lashell Gates in clinic today in conjunction with Dr. Vicente. Together we reviewed and interpreted his recent imaging and labs. PSA increased to 6.5 ng/mL from prior 3.3 on June 09. Potassium and hepatic panel within normal range. Testosterone pending. His C11 PET choline scan demonstrates a few new choline avid osseous metastasis, specifically in the midthoracicvertebral body, mid cervical vertebral body, low right thoracic pedicle, posterior elements of the left 3rd thoracolumbar vertebral body, and right iliac bone. There was also uptake within the hilar mediastinal nodes which may be reactive/granulomatosis, but ultimately indeterminate. Last 3 month Dahiana pron injection on June 09. His next will be due after September 01. At this point, he should continue on the ADT. Dr. Vicente would recommend that he revisit with Dr. Mott to restart the Olaparib. Mr. Lashell Gates was instructed to return for follow up appointment in 3 months to perform thefollowing laboratory tests: PSA, Testosterone, Alkaline phosphatase, AST, ALT, Total Bilirubin, andDirect Bilirubin. Patient will undergo a K81-[id number] PET to identify sites of prostate cancer relapse after failed treatment, per medical necessity and per FDA, NCCN and CMS guidelines. PLAN Continue on leuprolide injection, have him return on September 14 with his other Wednesday appointments Return visit with Dr. Mott to restart Olaparib 3. RTC in 3 months with labs and C-11 PET choline Signed by: Cristal Solis APRN, C.N.P., M.S.N. 08/04/2022 1:19 PM CDT I personally spent 25 minutes in care of the patient today. Time includes both non face to face andface to face patient care. documented in this encounter Plan of Treatment Upcoming Encounters Date Type Department Care Team (Late st Contact Info) Description 04/26/2023 3:15 PM ELIGIBILITY AND OCCUPANCY INTERVIEWER Appointment Department of Radiation Oncology in [place] [phone] [place] [phone] Gurwinder Tejeda M.D. [address] [place] [phone] 05/03/2023 1:00 PM ELIGIBILITY AND OCCUPANCY INTERVIEWER Appointment Department of Laboratory Medicine in [address] [phone] Carson Fletcher M.D. [address] [place] [phone] 05/03/2023 1:10 PM ELIGIBILITY AND OCCUPANCY INTERVIEWER Appointment Department of Laboratory Medicine in [address] [phone] Carson Fletcher M.D. [address] [place] [phone] 2023 2:30 PM ELIGIBILITY AND OCCUPANCY INTERVIEWER Virtual Visit Division of Pulmonary Medicine in [place], [place] [address] [place] [phone] Carson Fletcher M.D. [address] [place] [phone] 07/05/2023 11:20 AM CDT Lab Department of Laboratory Medicine and Pathology, [facility], in [place], [place] [address] [place] [phone] Kallie Rosales APRN, C.N.P., M.S. [address] [place] [phone] 07/05/2023 12:45 PM CDT Appointment Department of Radiology, [facility], in [place], [place] [address] [place] [phone] Kallie Rosales APRN, Regulo.NNaeem., M.S. [address] [place] [phone] 07/06/2023 11:30 AM CDT Office Visit Department of Urology in [place], [place] [address] [place] [phone] Sushant Vicente M.D. 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 Similar choline uptake of S5ejcfq pedicle (SUV max 3.8, previously 3.5) (image 121). OTHER METASTATIC DISEASE: None. Additional findings on the noncontrast low-dose CT: Bilateral peripherallung scarring and fibrotic changes. Colonic diverticulosis. Advanced atherosclerotic arterialcalcifications, including coronary arteries. IMPRESSION: 1. Mild progression of osseous metastatic disease. 2. Mediastinal lymph nodes demonstrate persistent avidity, indeterminatefor reactive inflammation versus metastases. Cristal Solis APRN, C.N.P., M.S.N. IM G NM PROCEDURES * (ABNORMAL) PSA (Prostate-Specific Antigen), Diagnostic (11/05/2022 11:38 AM CDT) Prostate-Specific Ag 9.8(H) <=6.5 ng/mL 11/05/2022 12:20 PM CDT [facility] Comment: ----ADDITIONAL INFORMATION---- The testing method is an electrochemiluminescence assay manufactured by [employer] and performed on the Modular or Lana system. Values obtained with different assay methods or kits may be different and cannot be used interchangeably. Test results cannot be interpreted as absolute evidence for the presence or absence of malignant disease. Blood (Blood, Venous) 11/05/2022 11:38 AM CDT 11/05/2022 11:56 AM CDT Cristal Solis APRN, C.N.P., M.S.NTavon [facility] [place] [address], [facility] [place] [address] * (ABNORMAL) Testosterone, Total by Mass Spectrometry, Serum (11/05/2022 11:38 AM CDT) Pathologist [facility] Testosterone, Total by Mass Spectrometry, Serum <7.0(L) 240 - 950 ng/dL 11/08/2022 2:25 PM CDT [facility] Comment: ----ADDITIONAL INFORMATION---- Testing performed by Liquid Chromatography-Tandem Mass Spectrometry (LC-MS/MS). This test was developed and its performance characteristics determined by [facility] in a manner consistent with CLIA requirements. This test has not been cleared or approved by the U.S. Food and Drug Administration. Blood (Blood, Venous) 11/05/2022 11:38 AM CDT 11/06/2022 7:48 AM CDT Cristal Solis APRN, C.N.P., Amarilis ROY BLOOD NON ADD-ON [facility] [address] [place] [address] [facility] [address] [place] [address] [place] [address] * Hepatic Function Panel (11/05/2022 11:38 AM CDT) Bilirubin, Total, S 0.5 <=1.2 mg/dL 11/05/2022 12:20 PM CDT DTL Bilirubin, Direct, S <0.2 0.0 - 0.3 mg/dL 11/05/2022 12:20 PM CDT DTL Aspartate Aminotransferase (AST), S 21 8 - 48 U/L 11/05/2022 12:20 PM CDT DTL Alanine Aminotransferase (ALT), S 15 7 - 55 U/L 11/05/2022 12:20 PM CDT DTL Alkaline Phosphatase, S 123 40 - 129 U/L 11/05/2022 12:20 PM CDT DTL Albumin, S 4.1 3.5 - 5.0 g/dL 11/05/2022 12:20 PM CDT DTL Protein, Total, S 6.3 6.3 - 7.9 g/dL 11/05/2022 12:20 PM CDT DTL Blood (Blood, Venous) 11/05/2022 11:38 AM CDT 11/05/2022 11:56 AM CDT Cristal Solis APRN, C.N.P., Amarilis ROY BLOOD ADD-ON [facility] [address] [place] [address], [facility] DTL [facility] [address] [place] [address] documented in this encounter Visit Diagnoses Diagnosis Primary Malignant Neoplasm Of Prostate (HCC)- Primary Rising Prostate Specific Antigen Following Treatment For Malignant Cancer Of Prostate 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
--- OUTSIDE RECORDS SUMMARY | 2023-04-25 19:05 | XMS_ITS | Encounter Summary ---
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 [address] [place] [phone] Rst Pul Rogo [address] [place] [phone] Referral ID Status Reason Start Date Expiration Date Visits Re quested Visits Authorized [id number] Closed 05/11/2022 05/11/2023 99 99 Encounter Details Date Type Department Care Team (Late st Contact Info) Description 06/10/2022 8:30 AM CDT Infusion Department of Infusion Therapy in [place], [place] [address] [place] [phone] Carson Fletcher M.D. [address] [place] [phone] Granulomatosis With Polyangiitis (Claudine's) Without Renal Involvement [...] How often do you attend [facility] or judaism services? Patient declined 02/03/2022 Do [...] Answer Date Recorded PHQ-2 Score 2 09/24/2021 [facility] - Occupational [...] Sign Reading Time Taken Comments Blood Pressure 127/61 06/10/2022 1:02 PM CDT Pulse 91 06/10/2022 1:02 PM CDT Temperature 36.7 ??C (98.1 ??F) 06/10/2022 8:12 AM CD T Respiratory Rate 18 06/10/2022 1:02 PM CDT Oxygen Saturation - - Inhaled Oxygen Concentration - - Weight - - Height - - Body Mass Index - - documented in this encounter Plan of Treatment Upcoming Encounters Date Type Department Care Team (Late st Contact Info) Description 04/26/2023 3:15 PM AMBULATORY TECHNOLOGIST Appointment Department of Radiation Oncology in [address] [phone] Gurwinder Tejeda M.D. [address] [place] [phone] 05/03/2023 1:00 PM AMBULATORY TECHNOLOGIST Appointment Department of Laboratory Medicine in [address] [phone] Carson Fletcher M.D. [address] [place] [phone] 05/03/2023 1:10 PM AMBULATORY TECHNOLOGIST Appointment Department of Laboratory Medicine in [address] [phone] Carson Fletcher M.D. [address] [place] [phone] 2023 2:30 PM AMBULATORY TECHNOLOGIST Virtual Visit Division of Pulmonary Medicine in [place], [place] [address] [place] [phone] Carson Fletcher M.D. [address] [place] [phone] 07/05/2023 11:20 AM CDT Lab Department of Laboratory Medicine and Pathology, [facility], in [place], [place] [address] [place] [phone] Kallie Rosales APRN, C.N.P., M.S. [address] [place] [phone] 07/05/2023 12:45 PM CDT Appointment Department of Radiology, [facility] in [place], [place] [address] [place] [phone] Kallie Rosales APRN, C.N.P., M.S. [address] [place] [phone] 07/06/2023 11:30 AM CDT Office Visit Department of Urology in [place], [place] [address] [place] [phone] Sushant Vicente M.D. 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) documented in this encounter Administered Medications Inactive Administered Medications - up to 3 most recent administrations Medication Order MAR Action Action Date Dose Rate Site acetaminophen tablet 1,000 mg (TYLENOL) 1,000 mg, oral, Once, On Wed06/10/22 at 0800, For 1 dose Given 06/10/2022 8:07 AM CDT 1,000 mg diphenhydrAMINE capsule 25 mg (BENADRYL) 25 mg, oral, Once, On Wed06/10/22 at 0800, For 1 dose Given 06/10/2022 8:07 AM CDT 25 mg methylPREDNISolone sod succinate (PF) injection 40 mg (SOLU-Medrol) 40 mg, intravenous, Once, On Wed06/10/22 at 0800, For 1 dose, Activate vial to a final concentration of 40 mg/mL Given 06/10/2022 8:21 AM CDT 40 mg rituximab-pvvr 1,000 mg in NaCl 0.9% IVPB (RUXIENCE) 1,000 mg, intravenous, Once, On Wed06/10/22 at 0830, For 1 dose, Adult infusion rate: Initial [...] met): Meets rituximab algorithm criteria Rate/Dose Change 06/10/2022 12:32 PM CDT 400 mL/hr Rate/Dose Change 06/10/2022 12:01 PM CDT 350 mL /hr Rate/Dose Change 06/10/2022 11:30 AM CDT 300 mL /hr sodium chloride 0.9 % injection 3 mL 3 mL, intra-catheter, As needed, line care, Starting on Wed06/10/22 at 0803, Prior to and following infusion and between multiple consecutive infusions. Given 06/10/2022 1:23 PM CDT 3 mL documented in this encounter Additional Health Concerns Assessment Noted Time PHQ-9 Depression Total Score: 2 10/13/19 14 10:45 AM CDT documented as of this encounter Care Teams Blind Aide Relationship Specialty Start Date End Date Elsewhere, Pcp PCP - General Family Medicine 12/29/19 documented as of this encounter
--- OUTSIDE RECORDS SUMMARY | 2023-04-25 19:06 | XMS_ITS | Encounter Summary ---
Author Name Unknown Organization [facility] Address [address] [place] [id number] Care Team Providers Care Protection Manager Name Role Phone Elsewhere, Pcp Primary Care Provider Unavailabl e Reason for Visit * Outpatient (Routine) - Closed Specialty Diagnoses / Procedures Referred By Brittni callejas Referred To Contact Urology Kallie Rosales APRN, C.N.P., M.S. [address] [place] [phone] [facility] Referral ID Status Reason Start Date Expiration Date Visits Re quested Visits Authorized [id number] Closed 11/11/2021 11/10/2024 1 1 Encounter Details Date Type Department Care Team (Late st Contact Info) Description 04/28/2022 10:00 AM FIELD PLACEMENT DIRECTOR Office Visit Department of Urology in [place], [place] [address] [place] [phone] Sushant Vicente M.D. [address] [place] [phone] Primary Malignant Neoplasm Of Prostate (HCC) (Primary [...] How often do you attend chur or sabianism services? Patient declined 02/03/2022 Do [...] Answer Date Recorded PHQ-2 Score 2 09/24/2021 [facility] - [...] * Kallie Rosales, ZUNILDA, C.N.P., M.S. - 04/28/2022 10:00 AM CST SUBJECTIVE CHIEF COMPLAINT/REASON FOR VISIT Advanced prostate cancer follow up. HISTORY OF PRESENT ILLNESS Mr. Lashell Gates is a 76 y.o. pleasant gentleman, who presents today for repeat evaluation foradvanced prostate cancer. His oncologic history is as follows: 1. July 01, 2004: underwent robotic-assisted radical prostatectomy by Dr. Duque. Pathology revealed [place] 3 + 3, pT2c, N0, MX, R0 adenocarcinoma of the prostate. 2. November 29, 2013: completed salvage external beam radiation therapy with Dr. Cole at [place], [place] for a biochemical recurrence. 3. July [...] plus docetaxel chemotherapy through Dr. Mott at [facility]. Notably, patient does have high tumor [...] decreased appetite and taste. Has significant fatigue. 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 They plan to change his medical therapy to Rituximab from [employer]. OBJECTIVE LABORATORY Lab Results Component Value Date/Time PSA 5.7 04/27/2022 11:13 AM Lab Results Component Value Date/Time CREATININE 1.03 04/27/2022 11:13 AM CREATININE 0.82 02/28/2021 02:08 PM ALKPHOS 120 04/27/2022 11:13 AM ALKPHOS 123 02/28/2021 02:08 PM AST 22 04/27/2022 11:13 AM AST 33 09/23/2021 09:45 AM AST 32 12/31/2016 09:06 AM ALT 19 04/27/2022 11:13 AM BILITOT 0.3 04/27/2022 11:13 AM BILITOT 0.5 09/23/2021 09:45 AM BILIDIR <0.2 09/23/2021 09:[address] Skull to Thigh PSMA Result Date: 04/27/2022 Impression: Continued reduction in PSMA avidity of osseous and john metastases since PET/CT 02/02/2022. No new lesions appreciated. miPSMA Expression Score: 1 ASSESSMENT / PLAN #1 Primary Malignant Neoplasm Of Prostate (HCC) #2 Rising Prostate Specific Antigen Following Treatment For Malignant Cancer Of Prostate It was a pleasure to see Mr. Lashell Gates in clinic today in conjunction with Dr. Vicente. Together we reviewed and interpreted his recent imaging and labs. His PSA continues to decline and was noted to be 5.7. All other labs were either stable or within normal limits. Imaging demonstrated continued reduction in PSMA avidity of osseous and john metastases. No new lesions noted. PSMA expressionscore of 1. Patient was recommended to move forward with his 5th cycle treatment of 177 PSMA lutetium. Mr. Lashell Gates was instructed to return for follow up appointment in 6 weeks to perform the following laboratory tests: PSA and Testosterone, CBC with differential, and complete metabolic panel. He will repeat another 3 month Lupron injection at that time. The patient will plan to repeat evaluation with a C-11 PET choline scan approximately 3 months after his 6th treatment. All other questions were answered at the time of the visit. He is in agreement with this plan. I personally spent over half of a total 18 minutes in documentation, reviewing medical history, counseling and discussion with the patient and coordination of care as described above. Signed by: Kallie Rosales APRN, C.Carli.Cydney, M.S. 04/28/2022 10:08 AM FIELD PLACEMENT DIRECTOR D PLACEMENT DIRECTOR documented in this encounter Plan of Treatment Upcoming Encounters Date Type Department Care Team (Late st Contact Info) Description 04/26/2023 3:15 PM FIELD PLACEMENT DIRECTOR Appointment Department of Radiation Oncology in [address] [phone] Gurwinder Tejeda M.D. [address] [place] [phone] 05/03/2023 1:00 PM FIELD PLACEMENT DIRECTOR Appointment Department of Laboratory Medicine in [address] [phone] Carson Fletcher M.D. [address] [place] [phone] 05/03/2023 1:10 PM FIELD PLACEMENT DIRECTOR Appointment Department of Laboratory Medicine in [address] [phone] Carson Fletcher M.D. [address] [place] [phone] 2023 2:30 PM FIELD PLACEMENT DIRECTOR Virtual Visit Division of Pulmonary Medicine in [place], [place] [address] [place] [phone] Carson Fletcher M.D. [address] [place] [phone] 07/05/2023 11:20 AM CDT Lab Department of Laboratory Medicine and Pathology, [facility] in [place], [place] [address] [place] [phone] Kallie Rosales APRN, C.N.P., M.S. [address] [place] [phone] 07/05/2023 12:45 PM CDT Appointment Department of Radiology, [facility] in [place], [place] [address] [place] [phone] Kallie Rosales APRN, C.N.P., M.S. [address] [place] [phone] 07/06/2023 11:30 AM CDT Office Visit Department of Urology in [place], [place] [address] [place] [phone] Sushant Vicente M.D. [address] [place] [phone] documented as of this encounter Visit Diagnoses Diagnosis Primary Malignant Neoplasm Of Prostate (HCC)- Primary Rising Prostate Specific Antigen Following Treatment For Malignant Cancer Of Prostate documented in this encounter Additional Health Concerns Assessment Noted Time PHQ-9 Depression Total Score: 2 10/13/19 14 10:45 AM CDT documented as of this encounter Care Teams Protection Manager Relationship Specialty Start Date End Date Elsewhere, Pcp PCP - General Family Medicine 12/29/19 documented as of this encounter
--- OUTSIDE RECORDS SUMMARY | 2023-04-25 19:06 | XMS_ITS | Encounter Summary ---
Author Name Unknown Organization [facility] Address [address] [place] [phone] Care Team Providers Care Cutting Machine Fixer Name Role Phone Elsewhere, Pcp Primary Care Provider Unavailabl e Reason for Referral * Outpatient (Routine) - Closed Specialty Diagnoses / Procedures Referred By Contac t Referred To Contact Diagnoses Primary Malignant Neoplasm Of Prostate (HCC) Rising Prostate Specific Antigen Following Treatment For Malignant Cancer Of Prostate Secondary Malignant Neoplasm Bone (HCC) Procedures NM Therapy Gamaliel-177 PSMA Cristal Solis APRN C.N.P., M.S.N. 200 [place] [phone] [facility] Referral ID Status Reason Start Date Expiration Date Visits Re quested Visits Authorized [id number] Closed 09/24/2021 09/24/2022 6 6 Reason for Visit * Outpatient (Routine) - Closed Specialty Diagnoses / Procedures Referred By Contac t Referred To Contact Diagnoses Primary Malignant Neoplasm Of Prostate (HCC) Rising Prostate Specific Antigen Following Treatment For Malignant Cancer Of Prostate Secondary Malignant Neoplasm Bone (HCC) Procedures NM Therapy Gamaliel-177 PSMA Cristal Solis APRN C.N.P., M.S.N. 200 [place] [address] [facility] Referral ID Status Reason Start Date Expiration Date Visits Re quested Visits Authorized [id number] Closed 09/24/2021 09/24/2022 6 6 Encounter Details Date Type Department Care Team (Latest Contact Info) Description 06/09/2022 12:58 PM CDT - 06/09/2022 11:59 PM CDT Hospital Encounter Department of Radiology in [place], [place] [address] [place] [phone] Cristal Solis, ZUNILDA, C.N.P., M.S.N. [address] [place] [phone] Primary Malignant Neoplasm Of Prostate (HCC); Rising [...] week 02/03/2022 How often do you attend [facility] or hindu services? Patient declined 02/03/2022 Do you belong to any clubs o r organizations such as taoism groups, unions, fraternal or athletic groups, or [...] 09/24/2021 [facility] - Occupational Stress Questionnaire Answer Date [...] place to sleep or slept in a half-way (including now)? No 02/03/2022 Nutrition Answer Date [...] Sign Reading Time Taken Comments Blood Pressure 111/54 06/09/2022 2:29 PM CDT Pulse 86 06/09/2022 2:29 PM CDT Temperature 36.7 ??C (98.1 ??F) 06/09/2022 1:43 PM CD T Respiratory Rate 16 06/09/2022 2:29 PM CDT Oxygen Saturation 96% 06/09/2022 2:29 PM CDT Inhaled Oxygen Concentration - - Weight 79.9 kg (176 lb 0.6 oz) 06/09/2022 1:43 P M CDT Height - - Body Mass Index 26.13 04/27/2022 3:48 PM FLOOR SUPERVISOR documented in this encounter Medications at Time [...] x 2, 2 weeks apart at [facility] on 06/10/2022 and 06/24/2022. 0 06/10/2022 [...] 0 09/11/2022 documented as of this encounter Nursing Notes * Gertrude Latham R.N. - 06/09/2022 1:00 PM CDT Patient tolerated therapy without any issues. Denies any complaints and denies nausea. Patient was encouraged to hydrate well and use proper bathroom etiquette. Left the department ambulatory. documented in this encounter Plan of Treatment Upcoming Encounters Date Type Department Care Team (Late st Contact Info) Description 04/26/2023 3:15 PM FLOOR SUPERVISOR Appointment Department of Radiation Oncology in [address] [phone] Gurwinder Tejeda M.D. [address] [place] [phone] 05/03/2023 1:00 PM FLOOR SUPERVISOR Appointment Department of Laboratory Medicine in [address] [phone] Carson Fletcher M.D. [address] [place] [phone] 05/03/2023 1:10 PM FLOOR SUPERVISOR Appointment Department of Laboratory Medicine in [address] [phone] Carson Fletcher M.D. [address] [place] [phone] 2023 2:30 PM FLOOR SUPERVISOR Virtual Visit Division of Pulmonary Medicine in [place], [place] [address] [place] [phone] Carson Fletcher M.D. [address] [place] [phone] 07/05/2023 11:20 AM CDT Lab Department of Laboratory Medicine and Pathology, [facility] in [place], [place] [address] [place] [phone] Kallie Rosales APRN, C.N.P., M.S. [address] [place] [phone] 07/05/2023 12:45 PM CDT Appointment Department of Radiology, [facility] in [place], [place] [address] [place] [phone] Kallie Rosales APRN, C.N.P., M.S. [address] [place] [phone] 07/06/2023 11:30 AM CDT Office Visit Department of Urology in [place], [place] [address] [place] [phone] Sushant Vicente M.D. [address] [place] [phone] documented as of this encounter Procedures Procedure Name Priority Date/Time Associated Diagnosis Comments NM THERAPY GAMALIEL-177 PSMA RAD - Routine (most inpatients and all outpatients) 06/09/2022 2:31 PM CDT Primary Malignant Neoplasm Of Prostate (HCC) Rising Prostate Specific Antigen Following Treatment For Malignant Cancer Of Prostate Secondary Malignant Neoplasm Bone (HCC) documented in this encounter Results * NM Therapy Gamaliel-177 PSMA (06/09/2022 2:31 PM CDT) Anatomical Region Laterality Modality Body, Nuclear Medicine RST L OS, Nuclear Medicine ARZ LOS, Nuclear Medicine FLA LOS, Nuclear Medicine N/A Nuclear Med icine 06/09/2022 3:37 PM CDT Impressions 06/09/2022 3:39 PM CDT Successful administration of Gamaliel-177 PSMA cycle 6. Narrative 06/09/2022 3:39 PM CDT EXAM: ??NM THERAPY GAMALIEL-177 PSMA RADIOPHARMACEUTICAL/MEDS: Route: intravenous lutetium Gamaliel 177 vipivotide tetraxetan (Gamailel-177 PLUVICTO),196 millicurie Waste dosage from Gamaliel-177 PSMA was 4 mCi. PROCEDURE: ??Laboratory values and interval clinical history reviewed. The therapy procedure was discussed with the patient, including risk, benefits, alternatives, potential side effects, and radiation safety by Mar Clayton APRN, CNP. ??All of the patient's questions were answered and informed consent was obtained by Libra Marcial APRN, C.N.P., Rao., M.S. on 11/11/2021. ??Written instructions, including a contact phone number, were given to the patient. The Gamaliel-177 PSMA release instructions were reviewed and the patient has agreed to follow them. The therapy radiopharmaceutical was administered under supervision of Dr. Fidencio Bowling. Procedure Note Fidencio Bowlign M.D. - 06/09/2022 EXAM: NM THERAPY GAMALIEL-177 PSMA RADIOPHARMACEUTICAL/MEDS: Route: intravenous lutetium Gamaliel 177 vipivotide tetraxetan (Gamaliel-177 PLUVICTO),196 millicurie Waste dosage from Gamaliel-177 PSMA was 4 mCi. PROCEDURE: Laboratory values and interval clinical history reviewed. Thetherapy procedure was discussed with the patient, including risk, benefits, alternatives,potential side effects, and radiation safety by Mar Clayton APRN, CHIMNEY SWEEPER. All of the patient'squestions were answered and informed consent was obtained by Libra Marcial APRN, C.N.P., Alina.Carli.P., M.S.on 11/11/2021. Written instructions, including a contact phone number, were given to the patient.The Gamaliel-177 PSMA release instructions were reviewed and the patient has agreed to follow them. The therapy radiopharmaceutical was administered under supervision of Dr.Brendan Bowling. IMPRESSION: Successful administration of Gamaliel-177 PSMA cycle 6. Cristal Solis APRN, C.N.P., M.S.N. G MI PROCEDURES documented in this encounter Visit Diagnoses Diagnosis Primary Malignant Neoplasm Of Prostate (HCC) Rising Prostate Specific Antigen Following Treatment For Malignant Cancer Of Prostate Secondary Malignant Neoplasm Bone (HCC) documented in this encounter Administered Medications Inactive Administered Medications - up to 3 most recent administrations Medication Order MAR Action Action Date Dose Rate Site lutetium Gamaliel 177 vipivotide tetraxetan (Gamaliel-177 PLUVICTO) 200 millicurie, intravenous, Once, On e 06/09/22 at 1445, For 1 dose, Imaging Protocol Orders, HAZARDOUS - Handle with care Given 06/09/2022 2:30 PM CDT 196 millicuries NaCl 0.9% infusion 100 mL/hr, intravenous, Once, On Wed06/09/22 at 1315, For 1 dose New Bag 06/09/2022 1:49 PM CDT 100 mL/hr 100 mL/hr documented in this encounter Additional Health Concerns Assessment Noted Time PHQ-9 Depression Total Score: 2 10/13/19 14 10:45 AM CDT documented as of this encounter Care Teams Cutting Machine Fixer Relationship Specialty Start Date End Date Elsewhere, Pcp PCP - General Family Medicine 12/29/19 documented as of this encounter
--- OUTSIDE RECORDS SUMMARY | 2023-04-25 19:06 | XMS_ITS | Encounter Summary ---
Author Name Unknown Organization [facility] Address [address] [place] [address] Care Team Providers Care Aboriginal Community Council Member Name Role Phone Elsewhere, Pcp Primary Care Provider Unavailabl e Reason for Referral * MRI/CAT/PET Scan (Routine) - Closed Specialty Diagnoses / Procedures Referred By Contac t Referred To Contact Diagnoses Primary Malignant Neoplasm Of Prostate (HCC) Procedures PET CT Choline Sushant Vicente M.D. [address] [place] [phone] [facility] Referral ID Status Reason Start Date Expiration Date Visits Re quested Visits Authorized [id number] Closed 06/09/2022 06/09/2023 1 1 * Outpatient (Routine) - Closed Specialty Diagnoses / Procedures Referred By Contac t Referred To Contact Urology Sushant Vicente M.D. [address] [place] [phone] [facility] Referral ID Status Reason Start Date Expiration Date Visits Re quested Visits Authorized [id number] Closed 06/09/2022 06/08/2025 1 1 Reason for Visit * Outpatient (Routine) - Closed Specialty Diagnoses / Procedures Referred By Contac t Referred To Contact Urology Kallie Rosales APRN, C.N.P., M.S. [address] [place] [phone] [facility] Referral ID Status Reason Start Date Expiration Date Visits Re quested Visits Authorized [id number] Closed 11/11/2021 11/10/2024 1 1 Encounter Details Date Type Department Care Team (Late st Contact Info) Description 06/09/2022 11:30 AM CDT Office Visit Department of Urology in [place], [place] [address] [place] [address] Sushant Vicente M.D. [address] [place] [phone] Primary Malignant Neoplasm Of Prostate (HCC) (Primary [...] How often do you attend chur or anglican services? Patient declined 02/03/2022 Do [...] Date Recorded PHQ-2 Score 2 09/24[facility]2021 [facility]ational Stress Questionnaire Answer [...] No 02/03/2022 Housing Stability Vital Sign Answer Watler e Recorded In the last 12 months, [...] Progress Notes * Sushant Vicente M.D. - 06/09/2022 11:30 AM CDT SUBJECTIVE CHIEF COMPLAINT/REASON FOR VISIT Advanced prostate cancer follow up. HISTORY OF PRESENT ILLNESS Mr. Lashell Gates is a 77 y.o. pleasant gentleman, who presents today for repeat evaluation foradvanced prostate cancer. His oncologic history is as follows: 1. July 01, 2004: underwent robotic-assisted radical prostatectomy by Dr. Duque. Pathology revealed [place] 3 + 3, pT2c, N0, MX, R0 adenocarcinoma of the prostate. 2. November 29, 2013: completed salvage external beam radiation therapy with Dr. Cole at [place], [place] for a biochemical recurrence. 3. July [...] plus docetaxel chemotherapy through Dr. Mott at [facility]. Notably, patient does have high tumor [...] with no restrictions ECOG performance score 0. 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 They plan to change his medical therapy to Rituximab from [employer]. LABORATORY Lab Results Component Value Date/Time PSA 3.3 06/09/2022 09:28 AM Lab Results Component Value Date/Time CREATININE 1.03 06/09/2022 09:28 AM CREATININE 0.82 02/28/2021 02:08 PM ALKPHOS 121 06/09/2022 09:28 AM ALKPHOS 123 02/28/2021 02:08 PM AST 22 06/09/2022 09:28 AM AST 33 09/23/2021 09:45 AM AST 32 12/31/2016 09:06 AM ALT 24 06/09/2022 09:28 AM BILITOT 0.3 06/09/2022 09:28 AM BILITOT 0.5 09/23/2021 09:45 AM BILIDIR <0.2 09/23/2021 09:45 AM DIAGNOSTICS No results found. Results for orders placed during the hospital encounter of 06/25/[address] Choline Narrative EXAM: PET CT CHOLINE RADIOPHARMACEUTICAL/MEDS: Route: intravenous choline C 11 injection (CHOLINE C-11),12.76 millicurie TECHNIQUE: C-11 Choline PET/CT scan was performed from the orbits through the thighs with low dose, non-contrast, free-breathing CT images for attenuation correction and anatomic localization (AC/AL), with imaging beginning at approximately 5 minutes after radiotracer injection. COMPARISON: Choline PET/CT 02/21/2021 and priors INDICATION: Advanced prostate cancer. Interval systemic therapy. Subsequent treatment strategy. The patient reports no recent vaccinations. FINDINGS: Stable choline uptake within mediastinal and left hilar lymph nodes, which may be reactive given absent uptake at PSMA PET There is also stable choline uptake within a few osseous lesions including lesion in the mid thoracic spine and a lesion in the right sternum. No new choline avid osseous lesion. Surgical changes of prostatectomy. No focal choline uptake in the prostate fossa to indicate local recurrence. No choline avid pelvic or retroperitoneal lymph nodes. Other findings on low-dose noncontrast CT: Vascular calcifications. Coronary stents. Emphysema. Tiny noncalcified pulmonary nodules are better seen at diagnostic CT. Node discrete focally choline avid lung lesion. Nonobstructing calyceal tip stones. Colonic diverticulosis. Scattered sclerotic osseous lesions without associated choline uptake. Impression Unchanged mild uptake in the right sternum and a mid thoracic vertebral body. No new choline evidence of metastatic disease. ASSESSMENT / PLAN It was a pleasure to see Mr. Lashell Gates in clinic today. As part of today's evaluation I didreview this patient's overall treatment history and treatment plan. As part of today's evaluation patient underwent repeat laboratory testing and imaging. PSA was 3.3 ng per mL. Hemoglobin was 12.9, p latelet count 208, WBC count 9.8. CMP panel was normal. Patient now presents for cycle 6 of treatment with 177 PSMA Lutetium. Patient is active with no restrictions ECOG performance score 0. Patient will also receive 3 month Lupron injection today. Mr. Lashell Gates was instructed to return for follow up appointment in 6 weeks to perform the following laboratory tests: PSA, Testosterone, Potassium, Alkaline phosphatase, AST, ALT, Total Bilirubin, and Direct Bilirubin. In addition, Mr. Lashell Gates will undergo a M99-vmolahv PET to identify sites of prostate cancer [...] described above. Signed by: Sushant Vicente M.D. 06/09/2022 12:25 PM CDT documented in this encounter Plan of Treatment Upcoming Encounters Date Type Department Care Team (Late st Contact Info) Description 04/26/2023 3:15 PM LABORER/GRADE CHECK Appointment Department of Radiation Oncology in [address] [phone] Gurwinder Tejeda M.D. [address] [place] [phone] 05/03/2023 1:00 PM LABORER/GRADE CHECK Appointment Department of Laboratory Medicine in [address] [phone] Carson Fletcher M.D. [address] [place] [phone] 05/03/2023 1:10 PM LABORER/GRADE CHECK Appointment Department of Laboratory Medicine in [address] [phone] Carson Fletcher M.D. [address] [place] [phone] 2023 2:30 PM LABORER/GRADE CHECK Virtual Visit Division of Pulmonary Medicine in [place], [place] [address] [place] [phone] Carson Fletcher M.D. [address] [place] [phone] 07/05/2023 11:20 AM CDT Lab Department of Laboratory Medicine and Pathology, [facility] in [place], [place] [address] [place] [phone] Kallie Rosales APRN, C.N.P., M.S. [address] [place] [phone] 07/05/2023 12:45 PM CDT Appointment Department of Radiology, [facility], in [place], [place] [address] [place] [phone] Kallie Rosales APRN, C.N.P., M.S. [address] [place] [phone] 07/06/2023 11:30 AM CDT Office Visit Department of Urology in [place], [place] [address] [place] [phone] Sushant Vicente M.D. [address] [place] [phone] Scheduled Referrals Name Type Priority Associated Diagnoses Orde r Schedule Urology office visit (clinic) Outpatient Referral Routine Expected: 07/21/2022 (Approximate), Expires: 09/10/2023 documented as of this encounter Results * [...] in the posterior right iliac bone (Q.Clear [id number]). Numerous areas of previous osseous metastatic disease [...] be granulomatous/reactive;however, disease involvement is possible. Sushant Vicente M.D. IMG NM PROCEDURES * Bilirubin, Total (08/03/2022 2:31 PM CDT) Bilirubin, Total, S 0.2 <=1.2 mg/dL 08/03/2022 3:49 PM CDT DTL Blood (Blood, Venous) 08/03/2022 2:31 PM CDT 08/03/2022 3:14 PM CDT Sushant Vicente M.D. LAB BLOOD ADD-ON Performing Organization Address [facility]/[place] [address] * Bilirubin, Direct (08/03/2022 2:31 PM CDT) Bilirubin, Direct, S <0.2 0.0 - 0.3 mg/dL 08/03/2022 3:49 PM CDT DTL Blood (Blood, Venous) 08/03/2022 2:31 PM CDT 08/03/2022 3:14 PM CDT Sushant Vicente M.D. LAB BLOOD ADD-ON Performing Organization Address [facility]/[place] [address] * (ABNORMAL) Testosterone, Total by Mass Spectrometry, Serum (08/03/2022 2:31 PM CDT) Testosterone, Total by Mass Spectrometry, Serum <7.0(L) 240 - 950 ng/dL 08/05/2022 1:04 PM CDT [facility] Comment: ----ADDITIONAL INFORMATION---- Testing performed by Liquid Chromatography-Tandem Mass Spectrometry (LC-MS/MS). This test was developed and its performance characteristics determined by [facility] in a manner consistent with CLIA requirements. This test has not been cleared or approved by the U.S. Food and Drug Administration. Blood (Blood, Venous) 08/03/2022 2:31 PM CDT 08/04/2022 6:24 AM CDT Sushant Vicente M.D. LAB BLOOD NON ADD-ON Performing Organization Address [facility]/ZIP Co de Phone Number [facility] [address] [place] [address] [facility] [address] [place] [address] [place] [address] * Potassium (08/03/2022 2:31 PM CDT) Potassium, S 4.5 3.6 - 5.2 mmol/L 08/03/2022 3:49 PM CDT DTL Blood (Blood, Venous) 08/03/2022 2:31 PM CDT 08/03/2022 3:14 PM CDT Sushant Vicente M.D. LAB BLOOD ADD-ON Performing Organization Address [facility] de Phone Number [facility] [address] [address] * PSA (Prostate-Specific Antigen), Diagnostic (08/03/2022 2:31 PM CDT) Prostate-Specific Ag 6.5 <=6.5 ng/mL 08/03/2022 3:49 PM CDT DTL Comment: ----ADDITIONAL INFORMATION---- The testing method is an electrochemiluminescence assay manufactured by [employer] and performed on the [employer] Braxis or Cruise Compare system. Values obtained with different assay methods or kits may be different and cannot be used interchangeably. Test results cannot be interpreted as absolute evidence for the presence or absence of malignant disease. Blood (Blood, Venous) 08/03/2022 2:31 PM CDT 08/03/2022 3:14 PM CDT Sushant Vicente M.D. LAB BLOOD ADD-ON Performing Organization Address [facility] Co de Phone Number [facility] 200 [place], [place] [phone] [place] [address] 200 [place] [address] * AST (Aspartate Aminotransferase) (08/03/2022 2:31 PM CDT) Aspartate Aminotransferase (AST), S 28 8 - 48 U/L 08/03/2022 3:49 PM CDT DTL Blood (Blood, Venous) 08/03/2022 2:31 PM CDT 08/03/2022 3:14 PM CDT Sushant Vicente M.D. LAB BLOOD ADD-ON Performing Organization Address [facility] Co de Phone Number [facility] 200 [place], [place] [phone] [place] [address] 200 [place] [address] * ALT (Alanine Aminotransferase) (08/03/2022 2:31 PM CDT) Alanine Aminotransferase (ALT), S 23 7 - 55 U/L 08/03/2022 3:49 PM CDT DTL Blood (Blood, Venous) 08/03/2022 2:31 PM CDT 08/03/2022 3:14 PM CDT Sushant Vicente M.D. LAB BLOOD ADD-ON Performing Organization Address [facility]/ZIP Co de Phone Number [facility] 200 [place], [place] [address] 200 [place] [address] * Alkaline Phosphatase (08/03/2022 2:31 PM CDT) Alkaline Phosphatase, S 125 40 - 129 U/L 08/03/2022 3:49 PM CDT DTL Blood (Blood, Venous) 08/03/2022 2:31 PM CDT 08/03/2022 3:14 PM CDT Sushant Vicente M.D. LAB BLOOD ADD-ON [facility] [address] [place] [address], [facility] [address] [place] [address] documented in this encounter Visit Diagnoses Diagnosis Primary Malignant Neoplasm Of Prostate (HCC)- Primary Primary Malignant Neoplasm Of Prostate (HCC) documented in this encounter Additional Health Concerns Assessment Noted Time PHQ-9 Depression Total Score: 2 10/13/19 14 10:45 AM CDT documented as of this encounter Care Teams Aboriginal Community Council Member Relationship Specialty Start Date End Date Elsewhere, Pcp PCP - General Family Medicine 12/29/19 documented as of this encounter
--- OUTSIDE RECORDS SUMMARY | 2023-04-25 19:06 | XMS_ITS | Encounter Summary ---
Author Name Unknown Organization [facility] Address [address] [place] [address] Care Team Providers Care Boat Diesel Motor Mechanic Name Role Phone Elsewhere, Pcp Primary Care Provider Unavailabl e Reason for Visit * Reason Comments Prostate Cancer 3 Month Lupron * Injectables (Routine) - Closed Specialty Diagnoses / Procedures Referred By Contac t Referred To Contact Diagnoses Primary Malignant Neoplasm Of Prostate (HCC) Procedures URO Injection visit- leuprolide (lupron) France Lara P.A.-C., M.S. [address] [place] [phone] [facility] Referral ID Status Reason Start Date Expiration Date Visits Re quested Visits Authorized [id number] Closed 03/17/2022 03/17/2023 1 1 Encounter Details Date Type Department Care Team (Late st Contact Info) Description 06/09/2022 11:15 AM CDT Clinical Support Department of Urology in [place], [place] [address] [place] [phone] France Lara P.A.-C., M.S. [address] [place] [phone] Teresita Silva R.N. [address] [place] [phone] Primary Malignant Neoplasm Of Prostate (HCC) Social [...] you attend [facility] or taoist services? Patient declined 02/03/2022 Do you belong to any clubs o r organizations such as bahai groups, unions, fraternal or athletic groups, or [...] as of this encounter Progress Notes * Teresita Silva RCourtney. - 06/09/2022 11:15 AM CDT CHIEF COMPLAINT Lupron 22.5 mg(3 month) Mr. Lashell Gates is here for a Lupron 22.5 mg(3 month) . See MAR for full medication and administration details. Lashell Gates reports: no negative side effects from medication. He was educated on: date when next injection is needed. Next injection due after 09/01/2022 Injection was given in: right dorsogluteal documented in this encounter Plan of Treatment Upcoming Encounters Date Type Department Care Team (Late st Contact Info) Description 04/26/2023 3:15 PM INTERNET ASSESSOR Appointment Department of Radiation Oncology in [address] [phone] Gurwinder Tejeda M.D. [address] [place] [phone] 05/03/2023 1:00 PM INTERNET ASSESSOR Appointment Department of Laboratory Medicine in [address] [phone] Carson Fletcher M.D. [address] [place] [phone] 05/03/2023 1:10 PM INTERNET ASSESSOR Appointment Department of Laboratory Medicine in [address] [phone] Carson Fletcher M.D. [address] [place] [phone] 2023 2:30 PM INTERNET ASSESSOR Virtual Visit Division of Pulmonary Medicine in [place], [place] [address] [place] [phone] Carson Fletcher M.D. [address] [place], [place] [phone] 07/05/2023 11:20 AM CDT Lab Department of Laboratory Medicine and Pathology, [place], [place] [address] [place] [phone] Kallie Rosales APRN, C.N.P., M.S. [address] [place] [phone] 07/05/2023 12:45 PM CDT Appointment Department of Radiology, [facility] in [place], [place] [address] [place] [phone] Kallie Rosales APRN, C.N.P., M.S. [address] [place] [phone] 07/06/2023 11:30 AM CDT Office Visit Department of Urology in [place], [place] [address] [place] [phone] Sushant Vicente M.D. [address] [place] [phone] documented as of this encounter Visit Diagnoses Diagnosis Primary Malignant Neoplasm Of Prostate (HCC) documented in this encounter Administered Medications Inactive Administered Medications - up to 3 most recent administrations Medication Order MAR Action Action Date Dose Rate Site leuprolide (3 month) injection 22.5 mg (LUPRON) 22.5 mg, intramuscular, Once, On Wed03/17/22 at 1130, For 1 dose Given 06/09/2022 12:48 PM CDT 22.5 mg Right Dorsogluteal documented in this encounter Additional Health Concerns Assessment Noted Time PHQ-9 Depression Total Score: 2 10/13/19 14 10:45 AM CDT documented as of this encounter Care Teams Boat Diesel Motor Mechanic Relationship Specialty Start Date End Date Elsewhere, Pcp PCP - General Family Medicine 12/29/19 documented as of this encounter
--- OUTSIDE RECORDS SUMMARY | 2023-04-25 19:06 | XMS_ITS | Encounter Summary ---
Author Name Unknown Organization [facility] Address [address] [place] [address] Care Team Providers Care Feeder Operator Automatic Name Role Phone Elsewhere, Pcp Primary Care Provider Unavailabl e Encounter Details Date Type Department Care Team (Late st Contact Info) Description 05/11/2022 Orders Only Division of Pulmonary Medicine in [place], [place] [address] [place] [phone] Carson Fletcher M.D. 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 Patient declined 02/03/2022 Do you belong [...] Score 2 09/24/2021 [facility] Questionnaire Answer Date [...] st Contact Info) Description 04/26/2023 3:15 PM COMMISSIONER OF RELOCATION SERVICES Appointment Department of Radiation Oncology in [place], [place] [address] [place] [phone] Gurwinder Tejeda M.D. [address] [place] [phone] 05/03/2023 1:00 PM COMMISSIONER OF RELOCATION SERVICES Appointment Department of Laboratory Medicine in [address] [phone] Carson Fletcher M.D. [address] [place] [phone] 05/03/2023 1:10 PM COMMISSIONER OF RELOCATION SERVICES Appointment Department of Laboratory Medicine in [address] [phone] Carson Fletcher M.D. [address] [place] [phone] 2023 2:30 PM COMMISSIONER OF RELOCATION SERVICES Virtual Visit Division of Pulmonary Medicine in [place], [place] [address] [place] [phone] Carson Fletcher M.D. [address] [place] [phone] 07/05/2023 11:20 AM CDT Lab Department of Laboratory Medicine and Pathology, [facility] in [place], [place] [address] [place] [phone] Kallie Rosales APRN, C.N.P., M.S. [address] [place] [phone] 07/05/2023 12:45 PM CDT Appointment Department of Radiology, [facility] in [place], [place] [address] [place] [phone] Kallie Rosales APRN, C.N.P., M.S. [address] [place] [phone] 07/06/2023 11:30 AM CDT Office Visit Department of Urology in [place], [place] [address] [place] [phone] Sushant Vicente M.D. 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
--- OUTSIDE RECORDS SUMMARY | 2023-04-25 19:06 | XMS_ITS | Encounter Summary ---
Author Name Unknown Organization [facility] Address [address] [place] [id number] Care Team Providers Care Software Engineering Specialist Name Role Phone Elsewhere, Pcp Primary Care Provider Unavailabl e Reason for Referral * Outpatient (Routine) - Closed Specialty Diagnoses / Procedures Referred By Brittni callejas Referred To Contact Cristal Solis APRN, C.NTom, M.S.N. [address] [place] [phone] [facility] Referral ID Status Reason Start Date Expiration Date Visits Re quested Visits Authorized [id number] Closed 09/24/2021 09/24/2022 1 1 Reason for Visit * Outpatient (Routine) - Closed Specialty Diagnoses / Procedures Referred By Contradha t Referred To Contact Cristal Solis APRN, C.N.Cydney, M.S.N. [address] [place] [phone] [facility] Referral ID Status Reason Start Date Expiration Date Visits Re quested Visits Authorized [id number] Closed 09/24/2021 09/24/2022 1 1 Encounter Details Date Type Department Care Team (Latest Contact Info) Description 06/09/2022 12:40 PM CDT - 06/09/2022 12:57 PM CDT Hospital Encounter Department of Radiology in [place], [place] [address] [place] [address] Cristal Solis, ZUNILDA, C.N.P., M.S.N. [address] [place] [phone] Mar Clayton APRN, C.N.P. 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 Patient declined 02/03/2022 [...] Answer Date Recorded PHQ-2 Score 2 09/24/2021 [facility] - Occupational Stress Questionnaire Answer Date [...] place to sleep or slept in a correction (including now)? No 02/03/2022 Nutrition Answer Date [...] mg x 2, 2 weeks apart at [facility] on 06/10/2022 and 06/24/2022. 0 06/10/2022 zinc [...] 0 09/11/2022 documented as of this encounter Progress Notes * Mar Clayton APRN, C.N.P. - 06/09/2022 12:40 PM CDT SUBJECTIVE REFERRING PROVIDER Return Visit NUCLEAR MEDICINE PROVIDER Mar Clayton APRN, C.N.P. REASON FOR VISIT Lashell Gates is a 77 y.o. male returning for evaluation of disease process prior to cycle 6 ofPluvicto therapy. HISTORY OF PRESENT ILLNESS Mr. Gates is a 77 y.o. male with progressive metastatic, castration-resistant prostate cancer, who has received ARPI and Taxane-based therapies. Metastatic disease is located in the bone and lymphnodes. Mr. Gates returns for cycle 6. Previously, Mr. Gates has received the following doses:cycle 1: 200 mCi, cycle 2: 200 mCi, cycle 3: 200 mCi, cycle 4: 200 mCi, and cycle 5: 200 mCi. Mr. Gates has been tolerating therapy treatments well. Patient notes continued dry mouth with therapy. He has been drinking fluids to help with this. He previously had reported epistaxis but states that this is now resolved. He describes ongoing hot flashes associated with his ADT therapy. He also has noted throughout the Pluvicto treatments that his fatigue duration last longer. He denies any pain. He denies any nausea or vomiting. He denies any recent falls. He does have frequency of urination but denies any incontinence. He denies any recent urinary tract infections. He describes a slowed urinary stream. Patient has been wintering down in [place], [place]. 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 Oncology History Overview Note 1. July 01, 2004: underwent robotic-assisted radical prostatectomy by Dr. Duque. Pathology revealed Chica 3 + 3, pT2c, N0, MX, R0 adenocarcinoma of the prostate. 2. November 29, 2013: completed salvage external beam radiation therapy with Dr. Cole at [place], [place] for a biochemical recurrence. 3. July [...] was 28.3 ng/mL. C11 PET choline scan does suggest numerous [...] three cycles of carboplatin plus docetaxel chemotherapy throughDr. Mott at [facility]. 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 26. January 2021: Completed 3 additional cycles of carboplatin plus docetaxel under direction of Dr. Mott. 27. February 21, 2021: PSA 8.8 ng/mL. C11 PET choline scan continued to note decrease in choline avid osseous lesions. Decrease in his prior right mid lobe pulmonary nodule to 3 mm from prior 6 mm andalong the major fissure measuring 6 mm from prior 1 cm. No new choline avid lesions. Recommended tocontinue on androgen deprivation therapy and revisit with [...] the evening instead of 2 tabletstwice daily. Primary Malignant Neoplasm Of Prostate (HCC) 03/04/2004 Initial Diagnosis Primary Malignant Neoplasm Of Prostate (HCC) 2004 Surgery and Procedures Robot assisted radical prostatectomy - 2013 Radiation Therapy EBRT 02/2017 Other PSA detectable on Lupron holiday 11/11/2021 - Biological/Targeted/Hormone Therapy Radioligand Therapy Pluvicto: Cycle 1: 11/11/2021 Cycle 2: 12/23/2021 Cycle 3: 02/03/2022 Cycle 4: 03/17/2022 Cycle 5: 04/28/2022 Cycle 6: 06/09/2022 Chica Score: <6 well-differentiated/low grade (<=3+3, Grade Group 1) Performance Status: ECOG status: 0 - normal activity REVIEW OF SYSTEMS Pertinent items are noted in HPI; all other systems reviewed and negative. OBJECTIVE LABORATORY RESULTS Lab Results Component Value Date HGB 12.9 (L) 06/09/2022 HGB 12.7 (L) 04/27/2022 HGB 12.8 (L) 03/17/2022 WBC 9.8 (H) 06/09/2022 WBC 9.5 04/27/2022 WBC 11.6 (H) 03/17/2022 PLT 208 06/09/2022 PLT 235 04/27/2022 PLT 231 03/17/2022 NEUTROPHILS 8.03 (H) 06/09/2022 NEUTROPHILS 7.92 (H) 04/27/2022 NEUTROPHILS 10.02 (H) 03/17/2022 NA 142 06/09/2022 NA 138 04/27/2022 NA 141 03/17/2022 EGFR 74 06/09/2022 EGFR 74 04/27/2022 EGFR 71 03/17/2022 CREATININE 1.03 06/09/2022 CREATININE 1.03 04/27/2022 CREATININE 1.07 03/17/2022 BILITOT 0.3 06/09/2022 BILITOT 0.3 04/27/2022 BILITOT 0.2 03/17/2022 ALT 24 06/09/2022 ALT 19 04/27/2022 ALT 24 03/17/2022 AST 22 06/09/2022 AST 22 04/27/2022 AST 21 03/17/2022 ALBUMIN 4.0 06/09/2022 ALBUMIN 4.2 04/27/2022 ALBUMIN 3.9 03/17/2022 PSA 3.3 06/09/2022 PSA 5.7 04/27/2022 PSA 10.3 (H) 03/17/2022 IMAGING RESULTS Results for orders placed during the hospital encounter of 04/27/[address] Skull to Thigh PSMA Narrative EXAM: PET CT SKULL TO THIGH PSMA RADIOPHARMACEUTICAL/MEDS: Route: intravenous gallium Ga 68 gozetotide injection (Ga-68 Illuccix/Locametz),5.28 millicurie TECHNIQUE: PSMA-targeted PET/CT scan was performed from the orbits through the thighs with low dose, non-contrast, free-breathing CT images for attenuation correction and anatomic localization (AC/AL), with imaging beginning at approximately 60 minutes after radiotracer injection. COMPARISON: PET/CT 02/02/2022 INDICATION: Metastatic prostate cancer. Recent interval treatment with PRRT. Subsequent treatment strategy. PSA: 5.7 ng/mL, reduced from 10.3 ng/mL on 03/17/2022. The patient reports no recent vaccinations. FINDINGS: PROSTATE BED: Status post prostatectomy for Chica 6 prostate cancer. No abnormal FDG activity in the prostate bed to indicate local recurrence. LYMPH NODES: Prominent, PSMA avid left para-aortic lymph nodes, consistent with john metastases. Degree of PSMA activity is decreased since PET/CT 02/02/2022. For instance, a lymph node immediately cephalad from the aortic bifurcation the left para-aortic region measures 4 mm with an SUV max of 1.5 (image 207), compared to 5 mm previously with an SUV max of 2.2. OSSEOUS DISEASE: Diffuse sclerotic lesions, consistent with osseous metastatic disease. Many of these do not demonstrate PSMA activity, consistent with treated lesions. Those with PSMA activity on most recent PET/CT 02/02/2022 involving bilateral clavicles, bilateral ribs, bilateral scapula, spine and sternum, demonstrate decreased in activity since prior PET/CT. For instance, a lesion in T7 vertebral body now demonstrates an SUV max of 2.7 (image 104), compared to 5.5 on prior PET/CT. OTHER METASTATIC DISEASE: None. No findings suspicious for non-PSMA avid metastatic disease. Additional findings on the noncontrast low-dose CT: Aortic and coronary artery calcifications. Gynecomastia. Scarring/fibrosis at the peripheries of the lungs bilaterally, most marked anteriorly. Splenule. Colonic diverticulosis. Impression Continued reduction in PSMA avidity of osseous and john metastases since PET/CT 02/02/2022. No new lesions appreciated. miPSMA Expression Score: 1 Results for orders placed in visit on 11/10/21 TX Res PET Narrative EXAM: [facility] PET RADIOPHARMACEUTICAL/MEDS: Route: intravenous Investigational gallium Ga 68 PSMA injection 4.81 millicurie (Ga-68 PSMA),4.81 millicurie Subject participated in research study IRB [id number] . Note: research images are stored in Nuclear Medicine The patient reports no recent vaccinations. TECHNIQUE: PSMA-targeted PET/CT scan was performed from the orbits through the thighs with low dose, non-contrast, free-breathing CT images for attenuation correction and anatomic localization (AC/AL), with imaging beginning at approximately 60 minutes after radiotracer injection. COMPARISON: PSMA PET/CT 09/23/2021. INDICATION: 76-year-old with history of Chica 6 prostate cancer. Status post prostatectomy. Additional treatment with chemoradiation and androgen deprivation. Subsequent treatment strategy. PSA: 32.8 ng/ml, rising FINDINGS: PROSTATE BED: No definite focal radiotracer avid recurrence of the prostatectomy bed. However, local activity from the urinary bladder does somewhat obscure this region. LYMPH NODES: There is a very small radiotracer avid left para-aortic lymph node, now with an SUV max of 8.1 (image 122). Multiple additional tiny upper retroperitoneal nodes (images 97 and 102). OSSEOUS DISEASE: Numerous radiotracer avid osseous metastases, several which are new since the prior exam and many of which have increased in radiotracer uptake. Sites of osseous metastatic disease include both clavicles, multiple ribs, both scapulae, multiple vertebral bodies, and the sternum. Multiple new sites of osseous radiotracer uptake, for example the left T12 facet (image 95) and the T12 vertebral body (image 100). OTHER METASTATIC DISEASE: Pleural thickening and nodularity in the anterior right middle lobe has increased in anatomic extent and radiotracer uptake since the prior exam, favored to be reactive (image 60). No other sites of radiotracer avid metastatic disease. No known radiotracer avid metastasis. Additional findings on the noncontrast low-dose CT: Fibrotic and emphysematous changes in the lungs. Atherosclerotic calcifications, including multivessel coronary artery calcifications. Gynecomastia. Degenerative changes of the skeleton. Splenule. Colonic diverticulosis. Postoperative changes of prostatectomy. Impression 1. No definite radiotracer avid recurrence in the prostate bed. 2. Multiple small radiotracer avid retroperitoneal nodes. 3. Numerous osseous metastases, many of which are new since the prior exam. 4. No evidence for non radiotracer avid disease. miPSMA Expression Score: 3 This exam was conducted as part of a research study. Results for orders placed during the hospital encounter of 04/29/22 NM Post Therapy Gamaliel-177 PSMA Monitoring Whole Body with SPECT CT Multiple Narrative EXAM: NM POST TX GAMALIEL-177 PSMA MONITORING WB W SPECT CT MULTI RADIOPHARMACEUTICAL/MEDS: Gamaliel-177 PSMA-617 (PLUVICTO) therapy was administered yesterday and noted in a therapy note on that date. This scan is a quantitative 3D image to localize the previously administered therapy including the tumor and organ biodistribution of that therapy. TECHNIQUE: Gamaliel-177 PSMA therapy monitoring imaging with quantitative SPECT performed from the vertex to the thighs with low dose, non-contrast free-breathing CT for attenuation correction and anatomic localization, and imaging beginning at approximately 24 hours after therapy injection. COMPARISON: Post therapy SPECT-CT 03/18/2022, 02/04/2022. PSMA PET/CT to 04/27/2022. INDICATION: Metastatic prostate cancer. Monitoring biodistribution after cycle 5 of therapy. FINDINGS: Expected Gamaliel-177 PSMA localization to the known metastatic disease in the lymph nodes and bones. The most radiotracer avid lesion in the left clavicular head. PSMA avid metastatic disease is better demonstrated on the 04/27/2022 PSMA PET/CT. New foci of PSMA localization since prior PSMA PET/CT or Post-therapy scan: Absent Overall, the PSMA avid tumor volume is visually decreased from prior exam. Suspicious non-PSMA avid metastatic disease: None. Biodistribution: Otherwise expected physiologic distribution of PSMA uptake. Additional findings on the noncontrast low-dose CT: Multifocal cavitary pulmonary opacities, compatible with the patient's history of vasculitis. Peripheral predominant pulmonary fibrotic opacities. Sclerotic lesions without radiotracer uptake, compatible with treated metastases. Vascular calcifications including coronary arteries. Sigmoid diverticulosis. Spondylotic changes. Impression 1. Successful localization of Gamaliel-177 PSMA to the known metastatic disease. 2. No additional foci of Gamaliel-177 PSMA localization to suggest new metastasis. 3. No suspicious non-PSMA avid metastatic disease. PSMA expression score: 1 ASSESSMENT / PLAN 1. Primary Malignant Neoplasm Of Prostate (HCC) 2. 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 Lung Interstitial Disease (HCC) 4. 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 Gates meets criteria to proceed with Pluvicto therapy. Lab values were reviewed which demonstrate leukocytosis as well as neutrophilia. 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 He will be discontinuing his CellCept in initiating rituximab for management of his Claudine's disease. He is scheduled to start rituximab tomorrow. His electrolytes and renal function studies are with satisfactory findings. His liver enzymes are also with satisfactory findings. PSA has continued to decline and is now 3.3 down from 5.7. I congratulated him on completion of Pluvicto therapy. Discussed Pluvicto therapy in detail and answered all questions. The plan will be for Mr. Gates to receive a dose of 200 mCi. We discussed what to expect during treatment. We discussed the common side effects, including fatigue, dry eyes, dry mouth, nausea, GI discomfort including diarrhea or constipation, rarely vomiting, loss of appetite, increased bone pain (could bone pain and/or joint pain), decreased blood cell counts ( anemia, increase risk of infection, increase risk of bleeding), reduced kidney function and theprecautions taken to avoid or minimize these effects. We discussed the potential long terms side effects of therapy. These include decreased renal function, bone marrow supression, and mild hair loss. We discussed the need for follow up laboratory analysis for monitoring of the bone marrow function with his primary physician. Radiation safety concerns were addressed. We discussed the limitations related to time with family and friends during therapy. We discussed the need for maintaining hygiene and proper bathroom etiquette to ensure those in the community are not exposed to the therapy medication. A pamphlet was givento Mr. Gates related to radiation safety. A therapy travel card was also given, with instructions related to possible radiation detectors at places of travel, such as airports. This card should becarried for 3 months. INFORMED CONSENT Written consent was obtained from Mr. Gates. I have discussed the Pluvicto treatment and associated consent with Lashell Gates, 06/09/22. The potential risks and benefits have been discussed along with alternative therapies. Mr. Gates has been given an opportunity to review the consent form, and questions have been answered. Mr. Gates has provided consent for treatment. The consent form has been signed and dated by Mr. Gates in my presence. PATIENT EDUCATION Ready to learn, no apparent learning barriers were identified; learning preferences include listening. Explained diagnosis and treatment plan; Mr. Gates expressed understanding of the content. RADIATION SAFETY Reviewed radiation safety precautions. A copy was provided to . Mr. Gates expressed understanding and agreement with guidelines. CARE TEAM Discussed with the patient we work together as a care team of physicians, nurse practitioners/physician assistants, nurses and other service support representative that specialize in this treatment. Also, reviewed the importance of maintaining ongoing care with [place] and local oncology team, as well as primary care jorge smith. ADMINISTRATIVE BILLING Total time spent 15 minutes, which includes FTF time as well as chart review, review of labs and other tests and communication with other providers. documented in this encounter Plan of Treatment Upcoming Encounters Date Type Department Care Team (Late st Contact Info) Description 04/26/2023 3:15 PM SOUS CHEF Appointment Department of Radiation Oncology in [place], [place] [address] [place] [phone] Gurwinder Tejeda M.D. [address] [place] [phone] 05/03/2023 1:00 PM SOUS CHEF Appointment Department of Laboratory Medicine in [address] [phone] Carson Fletcher M.D. [address] [place] [phone] 05/03/2023 1:10 PM SOUS CHEF Appointment Department of Laboratory Medicine in [address] [phone] Carson Fletcher M.D. [address] [place] [phone] 2023 2:30 PM SOUS CHEF Virtual Visit Division of Pulmonary Medicine in [place], [place] [address] [place] [phone] Carson Fletcher M.D. [address] [place] [phone] 07/05/2023 11:20 AM CDT Lab Department of Laboratory Medicine and Pathology, [facility] in [place], [place] [address] [place] [phone] Kallie Rosales APRN, C.N.P., M.S. [address] [place] [phone] 07/05/2023 12:45 PM CDT Appointment Department of Radiology, [facility] in [place], [place] [address] [place] [phone] Kallie Rosaels APRN, C.N.P., M.S. [address] [place] [phone] 07/06/2023 11:30 AM CDT Office Visit Department of Urology in [place], [place] [address] [place] [phone] Sushant Vicente M.D. 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
--- OUTSIDE RECORDS SUMMARY | 2023-04-25 19:06 | XMS_ITS | Encounter Summary ---
Author Name Unknown Organization [facility] Address [address] [place] [address] Care Team Providers Care Parts Fabricator Name Role Phone Elsewhere, Pcp Primary Care Provider Unavailabl e Reason for Visit * Reason Onset Date Comments Continuing Care Plan 05/08/2022 Mycophenola te Encounter Details Date Type Department Care Team (Latest Contact Info) Description 05/08/2022 Clinical Communication Division of Pulmonary Medicine in [place], [place] [address] [place] [phone] Carson Fletcher M.D. [address] [place] [phone] Continuing Care Plan (Mycophenolate) Social History Tobacco Use Types Packs/Day Years [...] often do you attend chur ch or scientology services? Patient declined 02/03/2022 Do you belong to any clubs o r organizations such as samaritan groups, unions, fraternal or athletic groups, or [...] Answer Date Recorded PHQ-2 Score 2 09/24/2021 [facility] - Occupational Stress Questionnaire Answer Date Recorded [...] Telephone Encounter - Kezia Marshall R.N. - 05/11/2022 11:37 AM AUTO AIR CONDITIONING APPRENTICE Information Discussed Discussed options for receiving rituximab infusions locally in [place]. He will contact his local provider there to see if they will be willing to write orders based upon Dr. Fletcher' treatment recommendations. Patient will provide update with how he would like to proceed. PLAN Disposition/Recommendation: recommended continue engagement in self-management activities Information/Education: able to teach back Caller agreeable to plan of care: yes The following references were used: previous plan of care date: 05/08/2022 e- communication of Dr. Fletcher. AIR CONDITIONING APPRENTICE * Telephone Encounter - Talita Frias - 05/11/2022 10:56 AM AUTO AIR CONDITIONING APPRENTICE I called Al to schedule the Rituximab infusion that was ordered. He is currently in [place] & won't be here until June 09 & . He will then be returning to [place] after those dates & won't be back until the end of June. He is wondering, since you are having him stop the CellCept, if there is another medication he can start? He does not feel the Rituximab would be the best choice as he won't be able to come back in 2 weeksafter the first infusion to have the other one. Could you reach out to him to discuss this, please? Thank you. 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 He noted that his insurance sent him a letter that it would no longer be covered. He said he discussed with Dr. Fletcher about potentially changing medications, although he wasn't certain if it was about mycophenolate. Patient has a one week supply left. We have two options: Renew prescription and do a prior authorization and likely an appeal. Patient is in [place] and will usethe [facility] in [place], [place] ( ). Consider alternative treatment. Action Requested: Callback once care plan is decided Additional Notes: AIR CONDITIONING APPRENTICE documented in this encounter Plan of Treatment Upcoming Encounters Date Type Department Care Team (Late st Contact Info) Description 04/26/2023 3:15 PM AUTO AIR CONDITIONING APPRENTICE Appointment Department of Radiation Oncology in [place], [place] [address] [place] [phone] Gurwinder Tejeda M.D. [address] [place] [phone] 05/03/2023 1:00 PM AUTO AIR CONDITIONING APPRENTICE Appointment Department of Laboratory Medicine in [address] [phone] Carson Fletcher M.D. [address] [place] [phone] 05/03/2023 1:10 PM AUTO AIR CONDITIONING APPRENTICE Appointment Department of Laboratory Medicine in [address] [phone] Carson Fletcher M.D. [address] [place] [phone] 2023 2:30 PM AUTO AIR CONDITIONING APPRENTICE Virtual Visit Division of Pulmonary Medicine in [place], [place] [address] [place] [phone] Carson Fletcher M.D. [address] [place] [phone] 07/05/2023 11:20 AM CDT Lab Department of Laboratory Medicine and Pathology, [facility], in [place], [place] [address] [place] [phone] Kallie Rosales, ZUNILDA, C.N.P., M.S. [address] [place] [phone] 07/05/2023 12:45 PM CDT Appointment Department of Radiology, [facility], in [place], [place] [address] [place] [phone] Kallie Rosales, ZUNILDA, C.N.P., M.S. [address] [place] [phone] 07/06/2023 11:30 AM CDT Office Visit Department of Urology in [place], [place] [address] [place] [phone] Sushant Vicente M.D. 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
--- OUTSIDE RECORDS SUMMARY | 2023-04-25 19:06 | XMS_ITS | Encounter Summary ---
Author Name Unknown Organization [facility] Address 200 [place] [address] Care Team Providers Care Director [employer] Name Role Phone Elsewhere, Pcp Primary Care [...] Multiple Cristal Solis APRN C.N.PTavon, M.S.N. 200 [place] [address] [facility] Referral ID Status Reason Start Date Expiration Date Visits Re quested Visits Authorized [id number] Closed 09/24/2021 09/24/2022 6 6 K JUMPER Reason for Visit * Outpatient (Routine) - Closed Specialty Diagnoses / Procedures Referred By Contradha t Referred To Contact Diagnoses Primary Malignant Neoplasm Of Prostate (HCC) Rising Prostate Specific Antigen Following Treatment For Malignant Cancer Of Prostate Secondary Malignant Neoplasm Bone (HCC) Procedures NM Post Therapy Gamaliel-177 PSMA Monitoring Whole Body with SPECT CT Multiple Cristal Solis APRN C.N.PTavon, M.S.N. 200 [place] [address] [facility] Referral ID Status Reason Start Date Expiration Date Visits Re quested Visits Authorized [id number] Closed 09/24/2021 09/24/2022 6 6 Encounter Details Date Type Department Care Team (Latest Contact Info) Description 04/29/2022 8:28 AM TRUCK JUMPER - 04/29/2022 11:59 PM TRUCK JUMPER Hospital Encounter Department of Radiology, [facility], in [place], [place] [address] [place] [address] Cristal Solis, ZUNILDA, C.N.P., M.S.N. [address] [place] [address] Primary Malignant Neoplasm Of Prostate (HCC); Rising [...] often do you attend [facility] or sabianist services? Patient declined 02/03/2022 Do you belong to any clubs o r organizations such as taoist groups, unions, fraternal or athletic groups, or [...] Answer Date Recorded PHQ-2 Score 2 09/24/2021 [facility] - Occupational [...] by mouth daily. 90 tablet 3 09/24/2021 zinc chelated 50 mg tablet tablet Take 50 mg by mouth daily. 0 FOLIC ACID/MULTIVIT-MIN/LUTEI N (CENTRUM SILVER ORAL) Take 1 tablet by mouth daily. 0 07/18/2008 03/09/2023 METHOTREXATE SODIUM ORAL Take by mouth. 0 11/27/2021 03/09/2023 morphine sulfate (MS CONTIN ORAL) Take 5 mg by mouth 2 (two) times a day as needed (for pain). 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 Monthly lab monitoring required. 360 tablet 1 08/21/2021 05/11/2022 NON FORMULARY Take by mouth. PEDI MULTIVIT NO.16 W-FLUORIDE (MULTIVITAMINS WITH FLUORIDE) 0.25 MG TABLET,CHEWABLE 0 11/27/2021 03/09/2023 omeprazole (PriLOSEC) [address] capsule Take by mouth daily. 0 11/27/2021 03/09/2023 pantoprazole (PROTONIX) 40 mg EC tablet Take 1 tablet (40 mg total) by mouth every morning before breakfast. 90 tablet 3 09/24/2021 07/31/2022 predniSONE (DELTASONE) 5 mg tablet Take 1 tablet (5 mg total) by mouth 2 (two) times a day. 180 tablet 3 09/24/2021 07/31/2022 triamcinolone (KENALOG) 0.1 % cream Apply topically. 0 11/27/2021 03/09/2023 UNABLE TO FIND every 6 (six) weeks. Pluvicco injection 0 09/11/2022 documented as of this encounter Plan of Treatment Upcoming Encounters Date Type Department Care Team (Late st Contact Info) Description 04/26/2023 3:15 PM TRUCK JUMPER Appointment Department of Radiation Oncology in [place], [place] [address] [place] [address] Gurwinder Tejeda M.D. [address] [place] [phone] 05/03/2023 1:00 PM TRUCK JUMPER Appointment Department of Laboratory Medicine in [address] [phone] Carson Fletcher M.D. [address] [place] [phone] 05/03/2023 1:10 PM TRUCK JUMPER Appointment Department of Laboratory Medicine in [address] [phone] Carson Fletcher M.D. [address] [place] [phone] 2023 2:30 PM TRUCK JUMPER Virtual Visit Division of Pulmonary Medicine in [place], [place] [address] [place] [phone] Carson Fletcher M.D. [address] [place] [phone] 07/05/2023 11:20 AM CDT Lab Department of Laboratory Medicine and Pathology, [place], [place] [address] [place] [phone] Kallie Rosales APRN, C.N.P., M.S. [address] [place] [phone] 07/05/2023 12:45 PM CDT Appointment Department of Radiology, [facility] in [place], [place] [address] [place] [phone] Kallie Rosales APRN, C.N.P., M.S. [address] [place] [phone] 07/06/2023 11:30 AM CDT Office Visit Department of Urology in [place], [place] [address] [place] [address] Sushant Vicente M.D. [address] [place] [address] documented as of this encounter Procedures Procedure Name Priority Date/Time Associated Diagnosis Comments NM POST TX GAMALIEL-177 PSMA MONITORING WB W SPECT CT MULTI RAD - Routine (most inpatients and all outpatients) 04/29/2022 9:48 AM TRUCK JUMPER Primary Malignant Neoplasm Of Prostate (HCC) Rising Prostate Specific Antigen Following Treatment For Malignant Cancer Of Prostate Secondary Malignant Neoplasm Bone (HCC) documented in this encounter Results * NM Post Therapy Gamaliel-177 PSMA Monitoring Whole Body with SPECT CT Multiple (04/29/2022 9:48 AM TRUCK JUMPER) Anatomical Region Laterality Modality Body, Nuclear Medicine RST L OS, Nuclear Medicine ARZ LOS, Nuclear Medicine FLA LOS, Nuclear Medicine N/A Nuclear Med icine 04/29/2022 9:41 AM TRUCK JUMPER Impressions 04/29/2022 10:23 AM TRUCK JUMPER 1. Successful localization of Gamaliel-177 PSMA to the known metastatic disease. 2. No additional foci of Gamaliel-177 PSMA localization to suggest new metastasis. 3. No suspicious non-PSMA avid metastatic disease. PSMA expression score: 1 Narrative 04/29/2022 10:23 AM TRUCK JUMPER EXAM: ??NM POST TX GAMALIEL-177 PSMA MONITORING [...] approximately 24 hours after therapy injection. COMPARISON: ??Post therapy SPECT-CT 03/18/2022, 02/04/2022. PSMA PET/CT to 04/27/2022. INDICATION: Metastatic prostate cancer. Monitoring biodistribution after cycle 5 of therapy. ?? FINDINGS: Expected Gamaliel-177 PSMA [...] including coronary arteries. Sigmoid diverticulosis. Spondylotic changes. Procedure Note Mirza Sy M.D. - 04/29/2022 EXAM: NM POST TX GAMALIEL-177 PSMA MONITORING [...] at approximately 24 hours aftertherapy injection. COMPARISON: Post therapy SPECT-CT 03/18/2022, 02/04/2022. PSMA PET/CT to04/27/2022. INDICATION: Metastatic prostate cancer. Monitoring biodistribution aftercycle 5 of therapy. FINDINGS: Expected Gamaliel-177 PSMA localization to the known metastatic disease in thelymph nodes and bones. The most radiotracer avid lesion in the left clavicular head. PSMA avidmetastatic disease is better demonstrated on the 04/27/2022 PSMA PET/CT. New foci of PSMA localization since prior PSMA PET/CT or Post-therapyscan: Absent Overall, the PSMA avid tumor volume is visually decreased from prior exam. Suspicious non-PSMA avid metastatic disease: None. Biodistribution: Otherwise expected physiologic distribution of PSMAuptake. Additional findings on the noncontrast low-dose CT: Multifocal cavitarypulmonary opacities, compatible with the patient's history of vasculitis. Peripheralpredominant pulmonary fibrotic opacities. Sclerotic lesions without radiotracer uptake, compatible withtreated metastases. Vascular calcifications including coronary arteries. Sigmoiddiverticulosis. Spondylotic changes. IMPRESSION: 1. Successful localization of Gamaliel-177 PSMA to the known metastaticdisease. 2. No additional foci of Gamaliel-177 PSMA localization to suggest newmetastasis. 3. No suspicious non-PSMA avid metastatic disease. PSMA expression score: 1 Cristal Solis APRN, C.N.P., M.S.N. G NM [...] documented as of this encounter Care Teams Director [employer] Relationship Specialty Start Date End Date Elsewhere, Pcp PCP - General Family Medicine 12/29/19 documented as of this encounter
--- OUTSIDE RECORDS SUMMARY | 2023-04-25 19:06 | XMS_ITS | Encounter Summary ---
Author Name Unknown Organization [facility] Address [address] [place] [address] Care Team Providers Care Oriental Medicine Practitioner Name Role Phone Elsewhere, Pcp Primary Care Provider Unavailabl e Encounter Details Date Type Department Care Team (Latest Contact Info) Description 06/09/2022 9:18 AM CDT - 06/09/2022 12:39 PM CDT Hospital Encounter Department of Laboratory Medicine and Pathology, [facility] in [place], [place] [address] [place] [phone] Kallie Rosales, ZUNILDA, C.N.P., M.S. [address] [place] [phone] Primary Malignant Neoplasm Of Prostate (HCC) Discharge [...] week 02/03/2022 How often do you attend [facility] or presybeterian services? Patient declined 02/03/2022 Do you belong to any clubs o r organizations such as buddhism groups, unions, fraternal or athletic groups, or [...] mg x 2, 2 weeks apart at [facility] on 06/10/2022 and 06/24/2022. 0 06/10/2022 [...] st Contact Info) Description 04/26/2023 3:15 PM TREASURY ANALYST Appointment Department of Radiation Oncology in [place], [place] [address] [place] [phone] Gurwinder Tejeda M.D. [address] [place] [phone] 05/03/2023 1:00 PM TREASURY ANALYST Appointment Department of Laboratory Medicine in [address] [place] [phone] Carson Fletcher M.D. [address] [place] [phone] 05/03/2023 1:10 PM TREASURY ANALYST Appointment Department of Laboratory Medicine in [address] [place] [phone] Carson Fletcher M.D. [address] [place] [phone] 2023 2:30 PM TREASURY ANALYST Virtual Visit Division of Pulmonary Medicine in [place], [place] [address] [place] [phone] Carson Fletcher M.D. [address] [place] [phone] 07/05/2023 11:20 AM CDT Lab Department of Laboratory Medicine and Pathology, [facility], in [place], [place] [address] [place] [phone] Kallie Rosales APRN, C.N.Hiwot., M.S. [address] [place] [phone] 07/05/2023 12:45 PM CDT Appointment Department of Radiology, [facility], in [place], [place] [address] [place] [phone] Kallie Rosales APRN, C.N.P., M.S. [address] [place] [phone] 07/06/2023 11:30 AM CDT Office Visit Department of Urology in [place], [place] [address] [place] [phone] Sushant Vicente M.D. [address] [place] [phone] documented as of this encounter Procedures Procedure Name Priority Date/Time Associated Diagnosis Comments CBC WITH DIFFERENTIAL, B Routine 06/09/2022 9:28 AM CDT Primary Malignant Neoplasm Of Prostate (HCC) TESTOSTERONE, TOTAL BY MASS SPECROMETRY, S Routine 06/09/2022 9:28 AM CDT Primary Malignant Neoplasm Of Prostate (HCC) PROSTATE-SPECIFIC AG (PSA) DIAGNOSTIC, S Routine 06/09/2022 9:28 AM CDT Primary Malignant Neoplasm Of Prostate (HCC) COMPREHENSIVE METABOLIC PANEL, S/P Routine 06/09/2022 9:28 AM CDT Primary Malignant Neoplasm Of Prostate (HCC) documented in this encounter Results * (ABNORMAL) Testosterone, Total by Mass Spectrometry, Serum (06/09/2022 9:28 AM CDT) Testosterone, Total by Mass Spectrometry, Serum <7.0(L) 240 - 950 ng/dL 06/12/2022 1:51 AM CDT [facility] Comment: ----ADDITIONAL INFORMATION---- Testing performed by Liquid Chromatography-Tandem Mass Spectrometry (LC-MS/MS). This test was developed and its performance characteristics determined by [facility] in a manner consistent with CLIA requirements. This test has not been cleared or approved by the U.S. Food and Drug Administration. Blood (Blood, Venous) 06/09/2022 9:28 AM CDT 06/09/2022 12:40 PM CDT Kallie Rosales APRN, C.N.P., M.S. LAB BLOOD NON ADD-ON Performing Organization Address City/[facility]/ZIP Co de Phone Number [facility] [address] [place] [address] Formerly named [facility] [address] [place] [address] * PSA (Prostate-Specific Antigen), Diagnostic (06/09/2022 9:28 AM CDT) Prostate-Specific Ag 3.3 <=6.5 ng/mL 06/09/2022 11:08 AM CDT DTL Comment: ----ADDITIONAL INFORMATION---- The testing method is an electrochemiluminescence assay manufactured by [employer] and performed on the Modular or Lana system. Values obtained with different assay methods or kits may be different and cannot be used interchangeably. Test results cannot be interpreted as absolute evidence for the presence or absence of malignant disease. Blood (Blood, Venous) 06/09/2022 9:28 AM CDT 06/09/2022 10:07 AM CDT Kallie Rosales APRN, C.N.P., M.S. LAB BLOOD ADD-ON Performing Organization Address City/[facility]/ZIP Co de Phone Number [facility] [address] [place] [address], [place] DTL [facility] [address] [place] [address] * Comprehensive Metabolic Panel (06/09/2022 9:28 AM CDT) Potassium, S 4.2 3.6 - 5.2 mmol/L 06/09/2022 10:37 AM CDT DTL Sodium, S 142 135 - 145 mmol/L 06/09/2022 10:37 AM CDT DTL Chloride, S 103 98 - 107 mmol/L 06/09/2022 10:37 AM CDT DTL Bicarbonate, S 28 22 - 29 mmol/L 06/09/2022 10:37 AM CDT DTL Anion Gap 11 7 - 15 06/09/2022 10:37 AM CDT DTL BUN (Blood Urea Nitrogen), S 13 8 - 24 mg/dL 06/09/2022 10:37 AM CDT DTL Creatinine 1.03 0.74 - 1.35 mg/dL 06/09/2022 10:37 AM CDT DTL Estimated GFR (eGFR) 74 >=60 mL/min/BS A 06/09/2022 10:37 AM CDT DTL Comment: Estimated GFR calculated using the 2020 CKD_EPI creatinine equation. Calcium, Total, S 9.4 8.8 - 10.2 mg/dL 06/09/2022 10:37 AM CDT DTL Glucose, S 72 70 - 140 mg/dL 06/09/2022 10:37 AM CDT DTL Protein, Total, S 6.6 6.3 - 7.9 g/dL 06/09/2022 10:37 AM CDT DTL Albumin, S 4.0 3.5 - 5.0 g/dL 06/09/2022 10:37 AM CDT DTL Aspartate Aminotransferase (AST), S 22 8 - 48 U/L 06/09/2022 10:37 AM CDT DTL Alkaline Phosphatase, S 121 40 - 129 U/L 06/09/2022 10:37 AM CDT DTL Alanine Aminotransferase (ALT), S 24 7 - 55 U/L 06/09/2022 10:37 AM CDT DTL Bilirubin, Total, S 0.3 <=1.2 mg/dL 06/09/2022 10:37 AM CDT DTL Blood (Blood, Venous) 06/09/2022 9:28 AM CDT 06/09/2022 10:07 AM CDT Kallie Rosales APRN C.N.P., M.S. LAB BLOOD ADD-ON [facility] [address] [place] [address], [facility] DTL [facility] [address] [place] [address] * (ABNORMAL) CBC with Differential, Blood (06/09/2022 9:28 AM CDT) Hemoglobin 12.9(L) 13.2 - 16.6 g/dL 06/09/2022 9:59 AM CDT DTL Hematocrit 39.7 38.3 - 48.6 % 06/09/2022 9:59 AM CDT DTL Erythrocytes 3.73(L) 4.35 - 5.65 x10(12)/L 06/09/2022 9:59 AM CDT DTL MCV 106.4(H) 78.2 - 97.9 fL 06/09/2022 9:59 AM CDT DTL RBC Distrib Width 13.6 11.8 - 14.5 % 06/09/2022 9:59 AM CDT DTL Platelet Count 208 135 - 317 x10(9)/L 06/09/2022 9:59 AM CDT DTL Leukocytes 9.8(H) 3.4 - 9.6 x10(9)/L 06/09/2022 9:59 AM CDT DTL Neutrophils 8.03(H) 1.56 - 6.45 x10(9)/L 06/09/2022 9:59 AM CDT DTL Lymphocytes 0.56(L) 0.95 - 3.07 x10(9)/L 06/09/2022 9:59 AM CDT DTL Monocytes 1.08(H) 0.26 - 0.81 x10(9)/L 06/09/2022 9:59 AM CDT DTL Eosinophils 0.08 0.03 - 0.48 x10(9)/L 06/09/2022 9:59 AM CDT DTL Basophils 0.04 0.01 - 0.08 x10(9)/L 06/09/2022 9:59 AM CDT DTL Blood (Blood, Venous) 06/09/2022 9:28 AM CDT 06/09/2022 9:52 AM CDT Kallie Rosales APRN, C.N.P., M.S. LAB BLOOD ADD-ON [facility] [address] [place] [address], [facility] [address] [place] [address] documented in this encounter Visit Diagnoses Diagnosis Primary Malignant Neoplasm Of Prostate (HCC) documented in this encounter Additional Health Concerns Assessment Noted Time PHQ-9 Depression Total Score: 2 10/13/19 14 10:45 AM CDT documented as of this encounter Care Teams Oriental Medicine Practitioner Relationship Specialty Start Date End Date Elsewhere, Pcp PCP - General Family Medicine 12/29/19 documented as of this encounter
--- OUTSIDE RECORDS SUMMARY | 2023-04-25 19:06 | XMS_ITS | Encounter Summary ---
Author Name Unknown Organization [facility] Address [address] [place] [address] Care Team Providers Care Hoisting Engine Operator Name Role Phone Elsewhere, Pcp Primary Care Provider Unavailabl e Reason for Visit * Reason Onset Date Comments Lab Monitoring 04/28/2022 Vasculitis Encounter Details Date Type Department Care Team (Latest Contact Info) Description 04/28/2022 Clinical Communication Division of Pulmonary Medicine in [place], [place] [address] [place] [phone] Carson Fletcher M.D. [address] [place] [phone] Lab Monitoring (Vasculitis) Social History Tobacco Use [...] often do you attend chur ch or spiritism services? Patient declined 02/03/2022 Do [...] 2 09/24/2021 [facility] Questionnaire Answer Date Recorded [...] Telephone Encounter - Kezia Marshall R.N. 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 Per visit note of Dr. Fletcher - CellCept 500 mg twice daily - Coordinate plan of care going forward with urology/Dr. Vicente (appt=06/09) - CBC (WBC, HGB) recheck due 07/20/2022 (orders exp Dec 2022) - Bactrim SS daily for PJP pneumonia prevention - Prednisone 10 mg daily (for prostate CA as managed by oncology) - Return TBD Patient prefers phone calls: Dr. Fletcher coordinating plan with urology/Dr. Vicente (appt=06/09). SE CONSULTANT documented in this encounter Plan of Treatment Upcoming Encounters Date Type Department Care Team (Late st Contact Info) Description 04/26/2023 3:15 PM CRUISE CONSULTANT Appointment Department of Radiation Oncology in [address] [phone] Gurwinder Tejeda M.D. [address] [place] [phone] 05/03/2023 1:00 PM CRUISE CONSULTANT Appointment Department of Laboratory Medicine in [address] [phone] Carson Fletcher M.D. [address] [place] [phone] 05/03/2023 1:10 PM CRUISE CONSULTANT Appointment Department of Laboratory Medicine in [address] [phone] Carson Fletcher M.D. [address] [place] [phone] 2023 2:30 PM CRUISE CONSULTANT Virtual Visit Division of Pulmonary Medicine in [place], [place] [address] [place] [phone] Carson Fletcher M.D. [address] [place] [phone] 07/05/2023 11:20 AM CDT Lab Department of Laboratory Medicine and Pathology, [facility], in [place], [place] [address] [place] [phone] Kallie Rosales APRN, C.N.P., M.S. [address] [place] [phone] 07/05/2023 12:45 PM CDT Appointment Department of Radiology, [facility] in [place], [place] [address] [place] [phone] Kallie Rosales APRN, Regulo.N.P., M.S. [address] [place] [phone] 07/06/2023 11:30 AM CDT Office Visit Department of Urology in [address] [phone] Sushant Vicente M.D. [address] [place] [phone] documented as of this encounter Visit Diagnoses Not on filedocumented in this encounter Additional Health Concerns Assessment Noted Time PHQ-9 Depression Total Score: 2 10/13/19 14 10:45 AM CDT documented as of this encounter Care Teams Hoisting Engine Operator Relationship Specialty Start Date End Date Elsewhere, Pcp PCP - General Family Medicine 12/29/19 documented as of this encounter
--- OUTSIDE RECORDS SUMMARY | 2023-04-25 19:06 | XMS_ITS | Encounter Summary ---
Author Name Unknown Organization [facility] Address [address] [place] [address] Care Team Providers Care Row Boss Hoeing Name Role Phone Elsewhere, Pcp Primary Care Provider Unavailabl e Reason for Visit * Reason Onset Date Comments Lab Monitoring 05/11/2022 Vasculitis Encounter Details Date Type Department Care Team (Latest Contact Info) Description 05/11/2022 Clinical Communication Division of Pulmonary Medicine in [place], [place] [address] [place] [phone] Carson Fletcher M.D. [address] [place] [phone] Lab Monitoring (Vasculitis) Social History Tobacco Use [...] often do you attend chur ch or zoroastrianism services? Patient declined 02/03/2022 Do you belong to any clubs o r organizations such as mosque groups, unions, fraternal or athletic groups, or [...] PHQ-2 Score 2 09/24/2021 [facility] Questionnaire Answer Date [...] Encounter - Kezia Marshall R.N. 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 on 06/10/2022 and 06/24/2022 Lab collect date: 04/27/2022 w/visit (otherwise Doc Viewer - [facility]) WBC 9.5 HGB 12.7 (prev 11.9) Plan: COVID-19 vaccines last dose 01/08/2022. Last visit was 04/27/2022. Per 05/08/2022 e-communication of Dr. Fletcher: I discussed with Dr. Vicente. We need to switch him to rituximab 1000 mg x 2 to be started at his next visit here. He can hold off on CellCept if he comes back soon. - Stop CellCept 500 mg twice daily effective April 2022 (prescription not renewed) - Stop quarterly Cellcept med monitoring - Switch to rituximab 1000 mg x 2, 2 weeks apart at [facility] on 06/10/2022 and 06/24/2022 - Continue Bactrim SS daily for PJP pneumonia prevention - Coordinate plan of care with urology/Dr. Vicente (appt=06/09) - Prednisone 10 mg daily (for prostate CA as managed by oncology) - Return scheduled on 09/14/2022 with GPA 10 pack, CT chest w/o contrast in place of CXR, B-cells and IgG Patient prefers phone calls: documented in this encounter Plan of Treatment Upcoming Encounters Date Type Department Care Team (Late st Contact Info) Description 04/26/2023 3:15 PM PIPING DESIGNER Appointment Department of Radiation Oncology in [address] [phone] Gurwinder Tejeda M.D. [address] [place] [phone] 05/03/2023 1:00 PM PIPING DESIGNER Appointment Department of Laboratory Medicine in [address] [phone] Carson Fletcher M.D. [address] [place] [phone] 05/03/2023 1:10 PM PIPING DESIGNER Appointment Department of Laboratory Medicine in [address] [phone] Carson Fletcher M.D. [address] [place] [phone] 2023 2:30 PM PIPING DESIGNER Virtual Visit Division of Pulmonary Medicine in [place], [place] [address] [place] [phone] Carson Fletcher M.D. [address] [place] [phone] 07/05/2023 11:20 AM CDT Lab Department of Laboratory Medicine and Pathology, [facility] in [place], [place] [address] [place] [phone] Kallie Rosales APRN, C.N.P., M.S. [address] [place] [phone] 07/05/2023 12:45 PM CDT Appointment Department of Radiology, [facility], in [place], [place] [address] [place] [phone] Kallie Rosales APRN, C.N.P., M.S. [address] [place] [phone] 07/06/2023 11:30 AM CDT Office Visit Department of Urology in [place], [place] [address] [place] [phone] Sushant Vicente M.D. [address] [place] [phone] documented as of this encounter Visit Diagnoses Not on filedocumented in this encounter Additional Health Concerns Assessment Noted Time PHQ-9 Depression Total Score: 2 10/13/19 14 10:45 AM CDT documented as of this encounter Care Teams Row Boss Hoeing Relationship Specialty Start Date End Date Elsewhere, Pcp PCP - General Family Medicine 12/29/19 documented as of this encounter
--- OUTSIDE RECORDS SUMMARY | 2023-04-25 19:07 | XMS_ITS | Encounter Summary ---
Author Name Unknown Organization [facility] Address [address] [place] [address] Care Team Providers Care Order Desk Clerk Name Role Phone Elsewhere, Pcp Primary Care Provider Unavailabl e Reason for Visit * Outpatient (Routine) - Closed Specialty Diagnoses / Procedures Referred By Brittni t Referred To Contact Pulmonary Medicine Carson Fletcher M.D. [address] [place] [phone] [facility] Referral ID Status Reason Start Date Expiration Date Visits Re quested Visits Authorized [id number] Closed 04/06/2022 04/05/2025 1 1 Encounter Details Date Type Department Care Team (Latest Contact Info) Description 04/27/2022 4:00 PM MUNICIPAL SERVICES MANAGER Office Visit Division of Pulmonary Medicine in [place], [place] [address] [place] [phone] Carson Fletcher M.D. 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 Patient declined 02/03/2022 Do you belong [...] Date Recorded PHQ-2 Score 2 09/24/2021 [facility] - Occupational [...] to sleep or slept in a senior living (including now)? No 02/03/2022 Nutrition Answer Date [...] Sign Reading Time Taken Comments Blood Pressure 116/72 04/27/2022 3:48 PM MUNICIPAL SERVICES MANAGER Pulse 83 04/27/2022 3:48 PM MUNICIPAL SERVICES MANAGER Temperature 36 ??C (96.8 ??F) 04/27/2022 3:48 PM MUNICIPAL SERVICES MANAGER Respiratory Rate - - Oxygen Saturation 94% 04/27/2022 3:48 PM MUNICIPAL SERVICES MANAGER Inhaled Oxygen Concentration - - Weight 80.8 kg (178 lb 2.1 oz) 04/27/2022 3:48 P M MUNICIPAL SERVICES MANAGER Height 174.8 cm (5' 8.82) 04/27/2022 3:48 PM CS T Body Mass Index 26.44 04/27/2022 3:48 PM MUNICIPAL SERVICES MANAGER documented in this encounter Progress Notes * Carson Fletcher M.D. 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 Gates returns for a discussion of potential treatment change for his GPA as despite CellCepttherapy bilateral peripheral masslike lung lesions have developed during his treatment for his prostate cancer. He feels fairly well and has not noticed any change in his clinical status. He denies any chest pains or other significant respiratory symptoms. The treatment for his prostate cancer seems to be very successful based on today's PSA result as well as the follow-up PET-CT. The CT chest lesions seen on the PET-CT from today or similar, maybe a little bit improved comparedto the full chest CT from March 17. The interstitial lung disease changes have remained stable. His CRP today is 17.1 which is slightly lower than in February. Renal function has remained stable,remainder of CBC and metabolic panel are unremarkable. To be certain that the lung lesions represent breakthrough disease activity of GPA we would need toobtain a CT-guided core needle biopsy (ideally of the left upper lobe lesion). I am somewhat uncomfortable upgrading his therapy from CellCept to rituximab without further evidence that this represents a breakthrough relapse of his GPA. I also would like to discuss with Dr. Vicente from Urology what the specifics of Mr. Gates's prostate cancer therapy entails. If this is some sort of immunotherapy I would understand how this led to reactivation of his GPA. At the same time I do not now how increased immunosuppressive therapy wouldinterfere with immunotherapy for his prostate cancer. Treatments need to be coordinated with Dr. Vicente. I tried to page him this afternoon but got no response, and hope I will be able to follow-up with him tomorrow. CIPAL SERVICES MANAGER documented in this encounter Plan of Treatment Upcoming Encounters Date Type Department Care Team (Late st Contact Info) Description 04/26/2023 3:15 PM MUNICIPAL SERVICES MANAGER Appointment Department of Radiation Oncology in [address] [phone] Gurwinder Tejeda M.D. [address] [place] [phone] 05/03/2023 1:00 PM MUNICIPAL SERVICES MANAGER Appointment Department of Laboratory Medicine in [address] [phone] Carson Fletcher M.D. [address] [place] [phone] 05/03/2023 1:10 PM MUNICIPAL SERVICES MANAGER Appointment Department of Laboratory Medicine in [address] [phone] Carson Fletcher M.D. [address] [place] [phone] 2023 2:30 PM MUNICIPAL SERVICES MANAGER Virtual Visit Division of Pulmonary Medicine in [address] [phone] Carson Fletcher M.D. [address] [place] [phone] 07/05/2023 11:20 AM CDT Lab Department of Laboratory Medicine and Pathology, [facility], in [place], [place] [address] [place] [phone] Kallie Rosales APRN, C.N.P., M.S. [address] [place] [phone] 07/05/2023 12:45 PM CDT Appointment Department of Radiology, [facility] in [place], [place] [address] [place] [phone] Kallie Rosales APRN, C.N.P., M.S. [address] [place] [phone] 07/06/2023 11:30 AM CDT Office Visit Department of Urology in [place], [place] [address] [place] [phone] Sushant Vicente M.D. 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 LAB BLOOD ADD-ON 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
--- OUTSIDE RECORDS SUMMARY | 2023-04-25 19:07 | XMS_ITS | Encounter Summary ---
Author Name Unknown Organization [facility] Address [address] [place] [address] Care Team Providers Care Carpet Technician Name Role Phone Elsewhere, Pcp Primary Care Provider Unavailabl e Reason for Referral * Outpatient (Routine) - Closed Specialty Diagnoses / Procedures Referred By Contac t Referred To Contact Diagnoses Primary Malignant Neoplasm Of Prostate (HCC) Rising Prostate Specific Antigen Following Treatment For Malignant Cancer Of Prostate Secondary Malignant Neoplasm Bone (HCC) Procedures NM Therapy Gamaliel-177 PSMA Cristal Solis APRN C.N.Cydney, M.S.N. 200 [place] [phone] [facility] Referral ID Status Reason Start Date Expiration Date Visits Re quested Visits Authorized [id number] Closed 09/24/2021 09/24/2022 6 6 DEVELOPER Reason for Visit * Outpatient (Routine) - Closed Specialty Diagnoses / Procedures Referred By Contac t Referred To Contact Diagnoses Primary Malignant Neoplasm Of Prostate (HCC) Rising Prostate Specific Antigen Following Treatment For Malignant Cancer Of Prostate Secondary Malignant Neoplasm Bone (HCC) Procedures NM Therapy Gamaliel-177 PSMA Cristal Solis APRN, C.N.Cydney, M.S.N. 200 [place] [address] [facility] Referral ID Status Reason Start Date Expiration Date Visits Re quested Visits Authorized [id number] Closed 09/24/2021 09/24/2022 6 6 Encounter Details Date Type Department Care Team (Latest Contact Info) Description 04/28/2022 11:55 AM NET DEVELOPER - 04/28/2022 11:59 PM NET DEVELOPER Hospital Encounter Department of Radiology in [place], [place] [address] [place] [phone] Cristal Solis, ZUNILDA, C.N.P., M.S.N. [address] [place] [address] Primary Malignant Neoplasm Of Prostate (HCC); Rising [...] week 02/03/2022 How often do you attend [facility] or temple services? Patient declined 02/03/2022 [...] Date Recorded PHQ-2 Score 2 09/24/2021 [facility] - Occupational Stress Questionnaire Answer Date [...] Sign Reading Time Taken Comments Blood Pressure 126/62 04/28/2022 12:56 PM NET DEVELOPER Pulse 81 04/28/2022 12:56 PM NET DEVELOPER Temperature 36.9 ??C (98.4 ??F) 04/28/2022 1 2:13 PM NET DEVELOPER Respiratory Rate 16 04/28/2022 12:5 6 PM NET DEVELOPER Oxygen Saturation 97% 04/28/2022 12: 56 PM NET DEVELOPER Inhaled Oxygen Concentration - - Weight 79.8 kg (175 lb 14.8 oz) 023 12:13 PM NET DEVELOPER Height - - Body Mass Index 26.12 04/27/2022 3:48 PM NET DEVELOPER documented in this encounter Medications at Time [...] mycophenolate (CELLCEPT) 500 mg tabletIndications:Medic ation Therapy Correction Not Anticoagulant Take 1 tablet (500 mg [...] this encounter Nursing Notes * Gertrude Latham RTavonN. - 04/28/2022 12:30 PM CST Patient tolerated therapy without any issues. Denies any complaints and denies nausea. Patient was encouraged to hydrate well and use proper bathroom etiquette. Left the department ambulatory. DEVELOPER documented in this encounter Plan of Treatment Upcoming Encounters Date Type Department Care Team (Late st Contact Info) Description 04/26/2023 3:15 PM NET DEVELOPER Appointment Department of Radiation Oncology in [address] [phone] Gurwinder Tejeda M.D. [address] [place] [phone] 05/03/2023 1:00 PM NET DEVELOPER Appointment Department of Laboratory Medicine in [address] [phone] Carson Fletcher M.D. [address] [place] [phone] 05/03/2023 1:10 PM NET DEVELOPER Appointment Department of Laboratory Medicine in [address] [phone] Carson Fletcher M.D. [address] [place] [phone] 2023 2:30 PM NET DEVELOPER Virtual Visit Division of Pulmonary Medicine in [place], [place] [address] [place] [phone] Carson Fletcher M.D. [address] [place] [phone] 07/05/2023 11:20 AM CDT Lab Department of Laboratory Medicine and Pathology, [facility] in [place], [place] [address] [place] [phone] Kallie Rosales APRN, C.N.P., M.S. [address] [place] [phone] 07/05/2023 12:45 PM CDT Appointment Department of Radiology, [facility] in [place], [place] [address] [place] [phone] Kallie Rosales APRN, C.N.P., M.S. [address] [place] [phone] 07/06/2023 11:30 AM CDT Office Visit Department of Urology in [place], [place] [address] [place] [phone] Sushant Vicente M.D. [address] [place] [phone] documented as of this encounter Procedures Procedure Name Priority Date/Time Associated Diagnosis Comments NM THERAPY GAMALIEL-177 PSMA RAD - Routine (most inpatients and all outpatients) 04/28/2022 12:57 PM NET DEVELOPER Primary Malignant Neoplasm Of Prostate (HCC) Rising Prostate Specific Antigen Following Treatment For Malignant Cancer Of Prostate Secondary Malignant Neoplasm Bone (HCC) documented in this encounter Results * NM Therapy Gamaliel-177 PSMA (04/28/2022 12:57 PM NET DEVELOPER) Anatomical Region Laterality Modality Body, Nuclear Medicine RST L OS, Nuclear Medicine ARZ LOS, Nuclear Medicine FLA LOS, Nuclear Medicine N/A Nuclear Med icine 04/28/2022 1:32 PM NET DEVELOPER Impressions 04/28/2022 1:33 PM NET DEVELOPER Successful administration of Gamaliel-177 PSMA cycle 5. Narrative 04/28/2022 1:33 PM NET DEVELOPER EXAM: ??NM THERAPY GAMALIEL-177 PSMA RADIOPHARMACEUTICAL/MEDS: Route: intravenous lutetium Gamaliel 177 vipivotide tetraxetan (Gamaliel-177 PLUVICTO),201 millicurie Waste dosage from Gamaliel-177 PSMA was 0. PROCEDURE: ??Laboratory values and interval clinical history reviewed. The therapy procedure was discussed with the patient, including risk, benefits, alternatives, potential side effects, and radiation safety by Johann Mohan. ??All of the patient's questions were answered and informed consent was obtained by Johann Mohan. ??Written instructions, including a contact phone number, were given to the patient. The Gamaliel-177 PSMA release instructions were reviewed and the patient has agreed to follow them. The therapy radiopharmaceutical was administered under supervision of Dr. Queenie Daugherty. Procedure Note Queenie Daugherty M.D. - 04/28/2022 EXAM: NM THERAPY GAMALIEL-177 PSMA RADIOPHARMACEUTICAL/MEDS: Route: intravenous lutetium Gamaliel 177 vipivotide tetraxetan (Gamaliel-177 PLUVICTO),201 millicurie Waste dosage from Gamaliel-177 PSMA was 0. PROCEDURE: Laboratory values and interval clinical history reviewed. Thetherapy procedure was discussed with the patient, including risk, benefits, alternatives,potential side effects, and radiation safety by Johann Mohan. All of the patient's questions wereanswered and informed consent was obtained by Johann Mohan. Written instructions, including a contactphone number, were given to the patient. The Gamaliel-177 PSMA release instructions were reviewed and thepatient has agreed to follow them. The therapy radiopharmaceutical was administered under supervision of Dr.Jolanta Daugherty. IMPRESSION: Successful administration of Gamaliel-177 PSMA cycle 5. Cristal Solis APRN C.N.P., M.S.N. G NM PROCEDURES documented in [...] (Gamaliel-177 PLUVICTO) 200 millicurie, intravenous, Once, On Wed04/28/22 at 1300, For 1 dose, Imaging Protocol Orders, HAZARDOUS - Handle with care Given 04/28/2022 12:57 PM NET DEVELOPER 201 millicuries Right Hand documented in this encounter Additional Health Concerns Assessment Noted Time PHQ-9 Depression Total Score: 2 10/13/19 14 10:45 AM CDT documented as of this encounter Care Teams Carpet Technician Relationship Specialty Start Date End Date Elsewhere, Pcp PCP - General Family Medicine 12/29/19 documented as of this encounter
--- OUTSIDE RECORDS SUMMARY | 2023-04-25 19:07 | XMS_ITS | Encounter Summary ---
Author Name Unknown Organization [facility] Address [address] [place] [address] Care Team Providers Care Adjunct Faculty For Medical Terminology Name Role Phone Elsewhere, Pcp Primary Care Provider Unavailabl e Reason for Referral * MRI/CAT/PET Scan (Routine) - Closed Specialty Diagnoses / Procedures Referred By Contac t Referred To Contact Diagnoses Primary Malignant Neoplasm Of Prostate (HCC) Procedures PET CT Skull to Thigh PSMA Kallie Rosales APRN C.N.P., M.S. [address] [place] [phone] [facility] Referral ID Status Reason Start Date Expiration Date Visits Re quested Visits Authorized [id number] Closed 11/11/2021 11/11/2022 1 1 ING ROBOT OPERATOR Reason for Visit * MRI/CAT/PET Scan (Routine) - Closed Specialty Diagnoses / Procedures Referred By Contac t Referred To Contact Diagnoses Primary Malignant Neoplasm Of Prostate (HCC) Procedures PET CT Skull to Thigh PSMA Kallie Rosales APRN, C.N.P., M.S. [address] [place] [phone] [facility] Referral ID Status Reason Start Date Expiration Date Visits Re quested Visits Authorized [id number] Closed 11/11/2021 11/11/2022 1 1 Encounter Details Date Type Department Care Team (Latest Contact Info) Description 04/27/2022 11:55 AM WELDING ROBOT OPERATOR - 04/27/2022 11:59 PM WELDING ROBOT OPERATOR Hospital Encounter Department of Radiology, [facility], in [place], [place] [address] [place] [address] Kallie Rosales APRN, C.N.P., M.S. 200 [place] [address] Primary Malignant Neoplasm Of Prostate (HCC) Discharge [...] How often do you attend chur or spiritism services? Patient declined 02/03/2022 Do [...] Answer Date Recorded PHQ-2 Score 2 09/24/2021 [facility] [place] of Occupat ional Health - Occupational Stress [...] mycophenolate (CELLCEPT) 500 mg tabletIndications:Medic ation Therapy Grain Thresher Not Anticoagulant Take 1 tablet (500 mg [...] st Contact Info) Description 04/26/2023 3:15 PM WELDING ROBOT OPERATOR Appointment Department of Radiation Oncology in [place], [place] [address] [place] [phone] Gurwinder Tejeda M.D. [address] [place] [address] 05/03/2023 1:00 PM WELDING ROBOT OPERATOR Appointment Department of Laboratory Medicine in [address] [phone] Carson Fletcher M.D. [address] [place] [phone] 05/03/2023 1:10 PM WELDING ROBOT OPERATOR Appointment Department of Laboratory Medicine in [address] [phone] Carson Fletcher M.D. [address] [place] [phone] 2023 2:30 PM WELDING ROBOT OPERATOR Virtual Visit Division of Pulmonary Medicine in [place], [place] [address] [place] [phone] Carson Fletcher M.D. [address] [place] [phone] 07/05/2023 11:20 AM CDT Lab Department of Laboratory Medicine and Pathology, [facility] in [place], [place] [address] [place] [phone] Kallie Rosales APRN, C.N.P., M.S. [address] [place] [phone] 07/05/2023 12:45 PM CDT Appointment Department of Radiology, [facility], in [place], [place] [address] [place] [phone] Kallie Rosales APRN, C.N.P., M.S. [address] [place] [phone] 07/06/2023 11:30 AM CDT Office Visit Department of Urology in [place], [place] [address] [place] [phone] Sushant Vicente M.D. [address] [place] [phone] documented as of this encounter Procedures Procedure Name Priority Date/Time Associated Diagnosis Comments PET CT SKULL TO THIGH PSMA RAD - Routine (most inpatients and all outpatients) 04/27/2022 2:21 PM WELDING ROBOT OPERATOR Primary Malignant Neoplasm Of Prostate (HCC) documented in this encounter Results * PET CT Skull to Thigh PSMA (04/27/2022 2:21 PM WELDING ROBOT OPERATOR) Anatomical Region Laterality Modality Body, Nuclear Medicine PET R ST LOS, PET ARZ LOS, Nuclear Medicine PET FLA LOS, Nuclear Medicine N/A Positron Emission Tomography (PET), Positron Emission Tomography (PET) 04/27/2022 4:12 PM WELDING ROBOT OPERATOR Impressions 04/27/2022 4:25 PM WELDING ROBOT OPERATOR Continued reduction in PSMA avidity of osseous and john metastases since PET/CT 02/02/2022. No new lesions appreciated. miPSMA Expression Score: 1 Narrative 04/27/2022 4:25 PM WELDING ROBOT OPERATOR EXAM: ??PET CT SKULL TO THIGH PSMA RADIOPHARMACEUTICAL/MEDS: Route: intravenous gallium Ga 68 gozetotide injection (Ga-68 Illuccix/Locametz),5.28 millicurie TECHNIQUE: ??PSMA-targeted PET/CT scan was performed from the orbits through the thighs with low dose, non-contrast, free-breathing CT images for attenuation correction and anatomic localization (AC/AL), with imaging beginning at approximately 60 minutes after radiotracer injection. COMPARISON: ??PET/CT 02/02/2022 INDICATION: ??Metastatic prostate cancer. Recent interval treatment with PRRT. [...] bilaterally, most marked anteriorly. Splenule. Colonic diverticulosis. Procedure Note Aristides Brown M.B., B.Ch., B.A.O. - 04/27/2022 EXAM: PET CT SKULL TO THIGH PSMA RADIOPHARMACEUTICAL/MEDS: Route: intravenous gallium Ga 68 gozetotide injection (Ga-68 Illuccix/Locametz),5.28millicurie TECHNIQUE: PSMA-targeted PET/CT scan was performed from the orbitsthrough the thighs with low dose, non-contrast, free-breathing CT images for attenuation correctionand anatomic localization (AC/AL), with imaging beginning at approximately 60 minutes afterradiotracer injection. COMPARISON: PET/CT 02/02/2022 INDICATION: Metastatic prostate cancer. Recent interval treatment withPRRT. Subsequent treatment strategy. PSA: 5.7 ng/mL, reduced from 10.3 ng/mL on 03/17/2022. The patient reports no recent vaccinations. FINDINGS: PROSTATE BED: Status post prostatectomy for [place] 6 prostate cancer. Noabnormal FDG activity in the prostate bed to indicate local recurrence. LYMPH NODES: Prominent, PSMA avid left para-aortic lymph nodes, consistentwith john metastases. Degree of PSMA activity is decreased since PET/CT 02/02/2022. Forinstance, a lymph node immediately cephalad from the aortic bifurcation the left para-aortic region measures4 mm with an SUV max of 1.5 (image 207), compared to 5 mm previously with an SUV max of 2.2. OSSEOUS DISEASE: Diffuse sclerotic lesions, consistent with osseousmetastatic disease. Many of these do not demonstrate PSMA activity, consistent with treated lesions.Those with PSMA activity on most recent PET/CT 02/02/2022 involving bilateral clavicles, bilateralribs, bilateral scapula, spine and sternum, demonstrate decreased in activity since prior PET/CT.For instance, a lesion in T7 vertebral body now demonstrates an SUV max of 2.7 (image 104), comparedto 5.5 on prior PET/CT. OTHER METASTATIC DISEASE: None. No findings suspicious for non-PSMA avidmetastatic disease. Additional findings on the noncontrast low-dose CT: Aortic and coronary artery calcifications. Gynecomastia. Scarring/fibrosisat the peripheries of the lungs bilaterally, most marked anteriorly. Splenule. Colonicdiverticulosis. IMPRESSION: Continued reduction in PSMA avidity of osseous and john metastases sincePET/CT 02/02/2022. No new lesions appreciated. miPSMA Expression Score: 1 Sherin Garcia APRNNNaeem., M.S. IM NM PROCEDURES documented in this encounter Visit Diagnoses Diagnosis Primary Malignant Neoplasm Of Prostate (HCC) documented in this encounter Administered Medications Inactive Administered Medications - up to 3 most recent administrations Medication Order MAR Action Action Date Dose Rate Site gallium Ga 68 gozetotide injection (Ga-68 Illuccix/Locametz) 2.7-7.7 millicurie, intravenous, Once, On 04/27/22 at 1245, For 1 dose, Imaging Protocol Orders Given 04/27/2022 12:43 PM WELDING ROBOT OPERATOR 5.28 millicuries documented in this encounter Additional Health Concerns Assessment Noted Time PHQ-9 Depression Total Score: 2 10/13/19 14 10:45 AM CDT documented as of this encounter Care Teams Adjunct Faculty For Medical Terminology Relationship Specialty Start Date End Date Elsewhere, Pcp PCP - General Family Medicine 12/29/19 documented as of this encounter
--- OUTSIDE RECORDS SUMMARY | 2023-04-25 19:07 | XMS_ITS | Referral Summary ---
Author Name Unknown Organization [facility] Address [address] [place] [address] Care Team Providers Care Journeyman Sheet Metal Worker Name Role Phone Jaime Trevizo Primary Care Provider [phone] Allergies No known active allergies Medications Medication Sig Dispensed Refills Start Date End Date Status ATORVASTATIN CALCIUM PO Take 40 mg by mouth daily 0 Active ASPIRIN PO Take 81 mg by mouth daily 0 Active Multiple Vitamins-Minerals (CENTRUM SILVER) per tablet Take 1 tablet by mouth daily 0 Active VITAMIN D, CHOLECALCIFEROL, PO Take 2,000 Units by mouth daily 0 Active diphenhydrAMINE-acetam inophen (TYLENOL PM) 25-500 MG tablet Take 1 tablet by mouth nightly as needed for sleep 0 Active FOLIC ACID PO Take 1 mg by mouth daily 0 Active leuprolide (LUPRON DEPOT) 30 MG kit Inject 30 mg into the muscle every 4 months 0 Active [place]-3 Fatty Acids (FISH OIL) 1000 MG CPDR Take 1 capsule by mouth daily 0 Active Omeprazole (PRILOSEC PO) Take 40 mg by mouth daily 0 Active sulfamethoxazole-trime thoprim (BACTRIM/SEPTRA) 400-80 MG per tablet Take 1 tablet by mouth 2 times daily 0 Active Social History Tobacco Use Types Packs/Day Years Used Date Smoking Tobacco: Every Day Cigarettes 0.3 Alcohol Use Standard Drinks/Week Comments Yes 0 (1 standard drink = 0.6 oz pur e alcohol) 2 drinks per day Sex and Gender Information Value Date Recorded Sex Assigned at Not on file Gender Identity Not on file Sexual Orientation Not on file Last Filed Vital Signs Vital Sign Reading Time Taken Comments Blood Pressure 123/79 11/25/2017 9:20 AM CDT Pulse - - Temperature 36.1 ??C (97 ??F) 11/25/2017 9:20 AM CDT Respiratory Rate 16 11/25/2017 9:20 AM CDT Oxygen Saturation 95% 11/25/2017 9:20 AM CDT Inhaled Oxygen Concentration - - Weight 87.1 kg (192 lb) 11/25/2017 7:27 AM CDT Height 177.8 cm (5' 10) 11/25/2017 7:27 AM CDT Body Mass Index 27.55 11/25/2017 7:27 AM CDT Plan of Treatment Not on file Care Teams Journeyman Sheet Metal Worker Relationship Specialty Start Date End Date Votel, Jaime TRIPP: [phone] PCP - General Family Practice 11/11/17
--- OUTSIDE RECORDS SUMMARY | 2023-04-25 19:07 | XMS_ITS | Clinical Summary ---
Author Name Unknown Organization [facility] Address [address] [place] [address] Care Team Providers Care Replanting Machine Operator Name Role Phone Jaime Trevizo Primary Care Provider [phone] Allergies No known active allergies Medications Medication [...] the muscle every 4 months 0 Active [place]-3 Fatty Acids (FISH OIL) 1000 MG CPDR [...] of Treatment Not on file Care Teams Replanting Machine Operator Relationship Specialty Start Date End Date Votel, Jaime TRIPP: [phone] PCP - General Family Practice 11/11/17
--- OUTSIDE RECORDS SUMMARY | 2023-04-25 19:07 | XMS_ITS | Encounter Summary ---
Author Name Unknown Organization [facility] Address [address] [place] [address] Care Team Providers Care Tennis Net Maker Name Role Phone Elsewhere, Pcp Primary Care Provider Unavailabl e Encounter Details Date Type Department Care Team (Late st Contact Info) Description 04/27/2022 11:20 AM INVENTORY ASSISTANT Lab Department of Laboratory Medicine and Pathology, [facility], in [place], [place] [address] [place] [phone] Kallie Rosales, ZUNILDA, C.N.P., M.S. [address] [place] [phone] Primary Malignant Neoplasm Of Prostate (HCC) Social [...] any clubs o r organizations such as yarsanism groups, unions, fraternal or athletic groups, or [...] Answer Date Recorded PHQ-2 Score 2 [facility]20[facility] Answer Date [...] place to sleep or slept in a detention (including now)? No 02/03/2022 Nutrition Answer Date [...] st Contact Info) Description 04/26/2023 3:15 PM INVENTORY ASSISTANT Appointment Department of Radiation Oncology in [place], [place] [address] [place] [phone] Gurwinder Tejeda M.D. [address] [place] [phone] 05/03/2023 1:00 PM INVENTORY ASSISTANT Appointment Department of Laboratory Medicine in [address] [phone] Carson Fletcher M.D. [address] [place] [phone] 05/03/2023 1:10 PM INVENTORY ASSISTANT Appointment Department of Laboratory Medicine in [address] [phone] Carson Fletcher M.D. [address] [place] [phone] 2023 2:30 PM INVENTORY ASSISTANT Virtual Visit Division of Pulmonary Medicine in [address] [phone] Carson Fletcher M.D. [address] [place] [phone] 07/05/2023 11:20 AM CDT Lab Department of Laboratory Medicine and Pathology, [facility] in [address] [phone] Kallie Rosales APRN, C.N.P., M.S. [address] [place] [phone] 07/05/2023 12:45 PM CDT Appointment Department of Radiology, [facility] in [place], [place] [address] [place] [phone] Kallie Rosales APRN, C.N.P., M.S. [address] [place] [phone] 07/06/2023 11:30 AM CDT Office Visit Department of Urology in [place], [place] [address] [place] [phone] Sushant Vicente M.D. [address] [place] [phone] documented as of this encounter Procedures Procedure Name Priority Date/Time Associated Diagnosis Comments [id number] LAB Routine 04/27/2022 11:13 AM INVENTORY ASSISTANT Primary Malignant Neoplasm Of Prostate (HCC) CBC WITH DIFFERENTIAL, B Routine 04/27/2022 11:13 AM INVENTORY ASSISTANT Primary Malignant Neoplasm Of Prostate (HCC) TESTOSTERONE, TOTAL BY MASS SPECROMETRY, S Routine 04/27/2022 11:13 AM INVENTORY ASSISTANT Primary Malignant Neoplasm Of Prostate (HCC) PROSTATE-SPECIFIC AG (PSA) DIAGNOSTIC, S Routine 04/27/2022 11:13 AM INVENTORY ASSISTANT Primary Malignant Neoplasm Of Prostate (HCC) COMPREHENSIVE METABOLIC PANEL, S/P Routine 04/27/2022 11:13 AM INVENTORY ASSISTANT Primary Malignant Neoplasm Of Prostate (HCC) documented in this encounter Results * (ABNORMAL) Testosterone, Total by Mass Spectrometry, Serum (04/27/2022 11:13 AM INVENTORY ASSISTANT) Testosterone, Total by Mass Spectrometry, Serum <7.0(L) 240 - 950 ng/dL 04/30/2022 2:43 PM INVENTORY ASSISTANT [facility] Comment: ----ADDITIONAL INFORMATION---- Testing performed by Liquid Chromatography-Tandem Mass Spectrometry (LC-MS/MS). This test was developed and its performance characteristics determined by [facility] in a manner consistent with CLIA requirements. This test has not been cleared or approved by the U.S. Food and Drug Administration. Blood (Blood, Venous) 04/27/2022 11:13 AM INVENTORY ASSISTANT 04/28/2022 6:08 AM INVENTORY ASSISTANT Regulo Garcia APRN.N.P., M.S. LAB BLOOD NON ADD-ON [facility] [address] [place] [address] [facility] [address] [place] [address] * PSA (Prostate-Specific Antigen), Diagnostic (04/27/2022 11:13 AM INVENTORY ASSISTANT) Pathologist [facility] [place] Prostate-Specific Ag 5.7 <=6.5 ng/mL 04/27/2022 12:16 PM INVENTORY ASSISTANT DTL Comment: ----ADDITIONAL INFORMATION---- The testing method is an electrochemiluminescence assay manufactured by [employer] and performed on the Modular or Lana system. Values obtained with different assay methods or kits may be different and cannot be used interchangeably. Test results cannot be interpreted as absolute evidence for the presence or absence of malignant disease. Blood (Blood, Venous) 04/27/2022 11:13 AM INVENTORY ASSISTANT 04/27/2022 11:43 AM INVENTORY ASSISTANT Regulo Garcia APRN.N.P., M.S. LAB BLOOD ADD-ON [facility] [address] [place] [address], [facility] DTL [facility] [address] [place] [address] * [id number] Out Lab (04/27/2022 11:13 AM INVENTORY ASSISTANT) Pathologist [facility] [place] [id number] SEE COMMENT 05/05/2022 9:03 AM INVENTORY ASSISTANT GUAR Comment: For final report, select Lab-Send Out Lab Results hyperlink below. Blood (Blood, Venous) 04/27/2022 11:13 AM INVENTORY ASSISTANT 04/27/2022 3:19 PM INVENTORY ASSISTANT Narrative [facility] - 05/05/2022 9:03 AM INVENTORY ASSISTANT Specimen Information: Specimen ID: [id number] Specimen Collection Start Date: 04/27/2022 11:13 AM Specimen Received Date: 04/27/2022 ??3:19 PM Specimen ID: [id number] Specimen Collection Start Date: 04/27/2022 11:13 AM Specimen Received Date: 04/27/2022 ??3:19 PM Kallie Rosales APRN, C.N.P., M.S. LAB GENETIC TESTING [facility] [address] [place] [phone], [facility] [address] [place] [address] * Comprehensive Metabolic Panel (04/27/2022 11:13 AM INVENTORY ASSISTANT) Pathologist [facility] [place] Potassium, S 4.2 3.6 - 5.2 mmol/L 04/27/2022 12:16 PM INVENTORY ASSISTANT DTL Sodium, S 138 135 - 145 mmol/L 04/27/2022 12:16 PM INVENTORY ASSISTANT DTL Chloride, S 100 98 - 107 mmol/L 04/27/2022 12:16 PM INVENTORY ASSISTANT DTL Bicarbonate, S 27 22 - 29 mmol/L 04/27/2022 12:16 PM INVENTORY ASSISTANT DTL Anion Gap 11 7 - 15 04/27/2022 12:16 PM INVENTORY ASSISTANT DTL BUN (Blood Urea Nitrogen), S 16 8 - 24 mg/dL 04/27/2022 12:16 PM INVENTORY ASSISTANT DTL Creatinine 1.03 0.74 - 1.35 mg/dL 04/27/2022 12:16 PM INVENTORY ASSISTANT DTL Estimated GFR (eGFR) 74 >=60 mL/min/BS A 04/27/2022 12:16 PM INVENTORY ASSISTANT DTL Comment: Estimated GFR calculated using the 2020 CKD_EPI creatinine equation. Calcium, Total, S 9.3 8.8 - 10.2 mg/dL 04/27/2022 12:16 PM INVENTORY ASSISTANT DTL Glucose, S 93 70 - 140 mg/dL 04/27/2022 12:16 PM INVENTORY ASSISTANT DTL Protein, Total, S 6.5 6.3 - 7.9 g/dL 04/27/2022 12:16 PM INVENTORY ASSISTANT DTL Albumin, S 4.2 3.5 - 5.0 g/dL 04/27/2022 12:16 PM INVENTORY ASSISTANT DTL Aspartate Aminotransferase (AST), S 22 8 - 48 U/L 04/27/2022 12:16 PM INVENTORY ASSISTANT DTL Alkaline Phosphatase, S 120 40 - 129 U/L 04/27/2022 12:16 PM INVENTORY ASSISTANT DTL Alanine Aminotransferase (ALT), S 19 7 - 55 U/L 04/27/2022 12:16 PM INVENTORY ASSISTANT DTL Bilirubin, Total, S 0.3 <=1.2 mg/dL 04/27/2022 12:16 PM INVENTORY ASSISTANT DTL Blood (Blood, Venous) 04/27/2022 11:13 AM INVENTORY ASSISTANT 04/27/2022 11:43 AM INVENTORY ASSISTANT Kallie Rosales APRN, C.N.P., M.S. LAB BLOOD ADD-ON [facility] [address] [place] [address], [facility] [address] [place] [address] * (ABNORMAL) CBC with Differential, Blood (04/27/2022 11:13 AM INVENTORY ASSISTANT) Hemoglobin 12.7(L) 13.2 - 16.6 g/dL 04/27/2022 11:34 AM INVENTORY ASSISTANT DTL Hematocrit 38.9 38.3 - 48.6 % 04/27/2022 11:34 AM INVENTORY ASSISTANT DTL Erythrocytes 3.76(L) 4.35 - 5.65 x10(12)/L 04/27/2022 11:34 AM INVENTORY ASSISTANT DTL MCV 103.5(H) 78.2 - 97.9 fL 04/27/2022 11:34 AM INVENTORY ASSISTANT DTL RBC Distrib Width 13.4 11.8 - 14.5 % 04/27/2022 11:34 AM INVENTORY ASSISTANT DTL Platelet Count 235 135 - 317 x10(9)/L 04/27/2022 11:34 AM INVENTORY ASSISTANT DTL Leukocytes 9.5 3.4 - 9.6 x10(9)/L 04/27/2022 11:34 AM INVENTORY ASSISTANT DTL Neutrophils 7.92(H) 1.56 - 6.45 x10(9)/L 04/27/2022 11:34 AM INVENTORY ASSISTANT DTL Lymphocytes 0.56(L) 0.95 - 3.07 x10(9)/L 04/27/2022 11:34 AM INVENTORY ASSISTANT DTL Monocytes 0.95(H) 0.26 - 0.81 x10(9)/L 04/27/2022 11:34 AM INVENTORY ASSISTANT DTL Eosinophils 0.03 0.03 - 0.48 x10(9)/L 04/27/2022 11:34 AM INVENTORY ASSISTANT DTL Basophils <0.03 0.01 - 0.08 x10(9)/L 04/27/2022 11:34 AM INVENTORY ASSISTANT DTL Blood (Blood, Venous) 04/27/2022 11:13 AM INVENTORY ASSISTANT 04/27/2022 11:25 AM INVENTORY ASSISTANT Regulo Garcia APRN.N.P., M.S. LAB BLOOD ADD-ON [address] [address], [facility] [address] [place] [address] documented in this encounter Visit Diagnoses Diagnosis Primary Malignant Neoplasm Of Prostate (HCC) documented in this encounter Additional Health Concerns Assessment Noted Time PHQ-9 Depression Total Score: 2 10/13/19 14 10:45 AM CDT documented as of this encounter Care Teams Tennis Net Maker Relationship Specialty Start Date End Date Elsewhere, Pcp PCP - General Family Medicine 12/29/19 documented as of this encounter
--- OUTSIDE RECORDS SUMMARY | 2023-04-25 19:07 | XMS_ITS | Clinical Summary ---
Author Name Unknown Organization [employer] [facility] Address [place], [place] [address] Care Team Providers Care Salon Coordinator Name Role Phone VotelJaime MD Primary Care Provider + Jasbir Painting Unavailable Unavailabl e Allergies Active Allergy Reactions Criticality Noted Date Comments Oxycodone-Acetamino phen Other - Describe In Comment Field 12/20/2019 Patient feels ill from medication and he feels he cannot hardly get out of his chair. Medications Medication Sig Dispensed Refills Start Date End Date Status ERNESTO LOW STRENGTH 81 MG TAB take 1 tablet (81 mg) by oral route once daily 0 06/30/2007 Active CENTRUM SILVER TAB take 1 tablet by oral route once daily 0 06/30/2007 Active omega-3 fatty acids-vitamin E (FISH OIL) 1,000 mg cap Take 1 capsule by mouth once daily. 0 Active leuprolide acetate (LUPRON DEPOT, 4 MONTH,) 30 mg injectionIndications :Prostate cancer (HC) Inject 30 mg intramuscular every 4 months. 0 12/12/2014 Active cholecalciferol (VITAMIN D3) 2,000 unit capsule Take 1 capsule by mouth. 0 08/10/2016 Active diphenhydrAMINE-acet aminophen 25-500 mg (TYLENOL PM) 25-500 mg tablet Take 1 tablet by mouth. 0 09/12/2013 Active loperamide (IMODIUM) 2 mg capsule Take 4mg by mouth with 1st loose stool, then 2mg with each subsequent loose stool. Max 16 mg in 24 hrs 48 capsule 1 12/11/2019 Active abiraterone (ZYTIGA) 250 mg tablet TAKE 4 TABLETS (1,000 MG) BY MOUTH DAILY. TAKE WITH NO FOOD, AT LEAST 2 HOURS BEFORE AND 1 HOUR AFTER. DO NOT CHEW TABLETS. 0 02/06/2019 Active atorvastatin (LIPITOR) 40 mg tabletIndications:Hi gh cholesterol Take 1 Tablet (40 mg) by mouth once daily with evening meal. 90 Tablet 3 08/13/2022 Active pantoprazole (PROTONIX) 40 mg delayed-release tabletIndications:Ga stroesophageal reflux disease, unspecified whether esophagitis present Take 1 Tablet (40 mg) by mouth every morning. 90 Tablet 3 08/13/2022 Active potassium chloride (K-TAB) 10 mEq extended-release tabletIndications:Lo w potassium syndrome Take 1 Tablet (10 mEq) by mouth once daily. 90 Tablet 3 08/13/2022 Active trimethoprim-sulfame thoxazole, 80-400 mg, (BACTRIM SS; SEPTRA SS) tabIndications:Wegen er's granulomatosis without renal involvement (HC) Take 1 Tablet by mouth once daily. 90 Tablet 3 08/13/2022 Active magnesium oxide 400 mg magnesium tab magnesium 0 Active melatonin 10 mg cap Take 1 Tablet by mouth one time if needed. 0 Active nitroglycerin (NITROSTAT) 0.4 mg sublingual tablet 0.4 mg. 0 04/10/2021 Active Docosahexanoic Acid-Eicosapent 120-180 mg cap Take 1 g by mouth. 0 Ac tive ascorbic acid, vitamin C, (VITAMIN C) 1,000 mg tablet Take 1,000 mg by mouth. 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 He had radiation therapy and that did not help. He has been receiving the lupron shots and that helps. He is receiving the Zytiga and that helps. He has had no metastatses to his bones. Chest pain, unspecified 06/30/2007 Presbyopia 03/24/2006 Hypermetropia 03/24/2006 Encounters Date Type Department Care Team Description 03/04/2023 Orders Only [facility] Scanner 1 scan: (1-Ord) [facility], US GUIDED LT INTRA-ARTICULAR HIP CORTICOSTEROID INJ, 03/04/2023 03/03/2023 1:30 PM ELEVATOR EXAMINER AND ADJUSTER Ancillary Procedure [facility] [address] [place] [address] 03/03/2023 Travel 01/25/2023 Telephone [facility] [address] [place], [place] [id number] Andrea Burden MD Lab (Results) from Last 3 Months Immunizations Name Administration Dates Next Due COVID-19 vaccine (Moderna 100mcg/0.5mL) PF, MDV 06/30/2021,01/20/2021,05/05/2020 COVID-19 vaccine (Moderna 50mcg/0.5mL) 12YO+ BIVALENT PF, MDV 01/08/2022 Influenza A (H1N1), Inactiva tanner (Age >=3 Years) 03/13/2009 Influenza Virus, Unspecified 02/07/2022, 12/20/2021,12/20/2020,2019,12/04/2018,01/02/2018,12/20/2016,0 11/23/2016,12/21/2015,05/03/2014, 015,01/20/2013,12/20/2012,12/21/2011,,01/04/2008 Influenza, High-dose Inactivated 019,01/05/2017,12/17/2015,2014,11/20/2014,12/04/2013,11/20/2013 Influenza, IIV3 (Age >=3 years) 12/24/2009,12/12,01/06/2005 Influenza, Inactivated AIIV4 (Age 65+ Years) Preserv Free 01/03/2020 Influenza, Inactivated IIV3 (Age 65+ Years) Preserv Free 12/15/2017 Pneumococcal Poly,23-Valent (Pneumovax) 12/01/2010,12/12/2008 Pneumococcal conj 13-Valent (Prevnar 13) 08/10/2016,12/12/2014 TD, UNSPECIFIED 03/22/2010,11/30/2003 Td (Age >=7 Years) 11/30/2003 Td, Preservative Free (age > = 7 Years) 02/25/2010 Tdap 09/19/2012, 3,10/05/2011,2011 Zoster (Zostavax-ZVL, live) 12/19/2011, 2 Family History * Patient is adopted Relation Name Status Comments Father Mother Social History Tobacco Use Types Packs/Day Years Used Date Smoking Tobacco: Former Cigarettes 0.3 30 0 10/20/1982 - 10/20/2012 Smokeless Tobacco: Never Tobacco Cessation:Counseling Given: No Alcohol Use Standard Drinks/Week Comments Yes 0 (1 standard drink = 0.6 oz pur e alcohol) 14 drinks per week PHQ-2 Answer Date Recorded PHQ-2 TOTAL SCORE 2 08/13/2022 Social Connections Answer Date Recorded Frequency of Communication with Friends and Fami ly Not on file 08/13/2022 Financial Resource Strain Answer Date R ecorded Difficulty of Paying Living Expenses Not on file 03/17/2021 Difficulty of Paying Living Expenses Not on file 03/17/2021 Sex and Gender Information Value Date Recorded Sex Assigned at Not on file Gender Identity Not on file Sexual Orientation Not on file Obstetrics History Last Filed Vital Signs Vital Sign Reading Time Taken Comments Blood Pressure 131/69 01/14/2023 9:34 AM CDT Pulse 70 01/14/2023 9:34 AM CDT Temperature 36.8 ??C (98.3 ??F) 08/13/2022 10:02 AM C DT Respiratory Rate 16 08/30/2013 8:09 AM CDT Oxygen Saturation 96% 01/14/2023 9:34 AM CDT Inhaled Oxygen Concentration - - Weight 83 kg (183 lb) 01/14/2023 9:34 AM CDT Height 172.6 cm (5' 7.95) 08/13/2022 10:02 AM C DT Body Mass Index 27.86 08/13/2022 10:02 AM CDT Plan of Treatment Health Maintenance Due Date Last Done Comments Hepatitis C screening for ag e 18-79 1963 Zoster (shingles) series for age 50+ (1 of 2) 02/13/2012 12/19/2011, 03/23/2011 Tetanus booster 09/19/2022 09/19/2012, 03/2012, 10/05/2011, Additional history exists COVID-19 vaccine series ( season) 2022 01/08/2022, 06/30/2021, 01/20/2021, Additional history exists Influenza for age 65+ 11/20/2022 02/07/2022 , 12/20/2021, 12/20/2020, Additional history exists Medicare Wellness for age 65+ 08/13/2023, 12/12/2014, 09/07/2011 BMI (ht and wt on same day) for age 18+ 08/14/2023 08/13/2022, 12/11/2019, 10/22/2018, Additional history exists Depression screening for age 12+ 08/14/2023 08/13/2022, 11/17/2017, 12/17/2015 Tdap Completed 09/19/2012, 03/2012, 10/05/2011, Additional history exists Pneumococcal series for age 65+ Completed 08/10/2016, 12/12/2014, 12/01/2010, Additional history exists Medical Devices Implanted Type Area Business Change Manager Device Identifier Shelf Expiration Date Model / Serial / Lot Lens Iol 20.5 Wf [id number]. [id number] - [id number] Implanted:Qty: 1 on 08/07/2013 by Delvin Painting MD at [facility] Left: Eye [employer] [id number]. [id number]# / [id number] / Lens Iol 20.5 Wf [id number]. [id number] - [id number] Implanted:Qty: 1 on 08/30/2013 by Delvin Painting MD at [facility] Right: Eye [employer] 05/02/2018 [id number]. [id number]# / [id number] / Procedures Procedure Name Priority Date/Time Associated Diagnosis Comments SCAN-OPERATIVE/PROC EDURE REPORT 03/04/2023 12:00 AM ELEVATOR EXAMINER AND ADJUSTER XR DXA BONE DENSITY 2 SITES AXIAL STAT 03/03/2023 1:33 PM ELEVATOR EXAMINER AND ADJUSTER Chronic left hip pain from Last 3 Months Results * SCAN-OPERATIVE/PROCEDURE REPORT (03/04/2023 12:00 AM ELEVATOR EXAMINER AND ADJUSTER) Scanner OTHER * XR DXA BONE DENSITY 2 SITES AXIAL (03/03/2023 1:33 PM ELEVATOR EXAMINER AND ADJUSTER) Anatomical Region Laterality Modality Spine, HIPS, HIPL, HIPR Computed Radiography 03/03/2023 1:33 PM ELEVATOR EXAMINER AND ADJUSTER Impressions 03/03/2023 3:36 PM ELEVATOR EXAMINER AND ADJUSTER Low bone density (OSTEOPENIA). T score meets the WHO criteria for low bone density (osteopenia) at one or more measured sites. The risk of osteoporotic fracture increases approximately two-fold for each standard deviation decrease in T-score. Narrative 03/03/2023 3:36 PM ELEVATOR EXAMINER AND ADJUSTER For Patients: As a result of the Cures Act, medical imaging exams and procedure reports are released immediately into your electronic medical record. You may view this report before your referring provider. If you have questions, please contact your health care provider. EXAM: XR DXA BONE DENSITY 2 SITES AXIAL LOCATION: [facility] DATE: 03/03/2023 INDICATION: z13.820 Chronic left hip pain. DEMOGRAPHICS: Age- 77 years. Gender- Male. COMPARISON: No prior studies available on the current scanner. TECHNIQUE: Dual-energy x-ray absorptiometry (DXA) performed with routine technique. FINDINGS: DXA RESULTS -Lumbar Spine: L1-L4: BMD: 1.184 g/cm2. T-score: -0.3. Z-score: 0.4. -RIGHT Hip Total: BMD: 0.891 g/cm2. T-score: -1.5. Z-score: -0.4. -RIGHT Hip Femoral neck: BMD: 0.761 g/cm2. T-score: -2.4. Z-score: -0.9. -LEFT Hip Total: BMD: 0.825 g/cm2. T-score: -1.9. Z-score: -0.8. -LEFT Hip Femoral neck: BMD: 0.843 g/cm2. T-score: -1.7. Z-score: -0.2. WHO T-SCORE CRITERIA -Normal: T score at or above -1 SD -Osteopenia: T score between -1 and -2.5 SD -Osteoporosis: T score at or below -2.5 SD The World Health Organization (WHO) criteria is applicable to perimenopausal females, postmenopausal females, and men aged 50 years or older. FRACTURE RISK -FRAX Results: The 10 year probability of major osteoporotic fracture is 11.4%, and of hip fracture is 6.5%, based on right femoral neck BMD. RECOMMENDATIONS Consider treatment if major osteoporotic fracture score is greater than or equal to 20%, or if the hip fracture score is greater than or equal to 3%. Procedure Note Destin Dover MD - 03/03/2023 For Patients: As a result of the Century Cures Act, medical imagingexams and procedure reports are released immediately into your electronicmedical record. You may view this report before your referring provider.If you have questions, please contact your health care provider. EXAM: XR DXA BONE DENSITY 2 SITES AXIAL LOCATION: [facility] DATE: 03/03/2023 INDICATION: z13.820 Chronic left hip pain. DEMOGRAPHICS: Age- 77 years. Gender- Male. COMPARISON: No prior studies available on the current scanner. TECHNIQUE: Dual-energy x-ray absorptiometry (DXA) performed with routinetechnique. FINDINGS: DXA RESULTS -Lumbar Spine: L1-L4: BMD: 1.184 g/cm2. T-score: -0.3. Z-score: 0.4. -RIGHT Hip Total: BMD: 0.891 g/cm2. T-score: -1.5. Z-score: -0.4. -RIGHT Hip Femoral neck: BMD: 0.761 g/cm2. T-score: -2.4. Z-score: -0.9. -LEFT Hip Total: BMD: 0.825 g/cm2. T-score: -1.9. Z-score: -0.8. -LEFT Hip Femoral neck: BMD: 0.843 g/cm2. T-score: -1.7. Z-score: -0.2. WHO T-SCORE CRITERIA -Normal: T score at or above -1 SD -Osteopenia: T score between -1 and -2.5 SD -Osteoporosis: T score at or below -2.5 SD The World Health Organization (WHO) criteria is applicable toperimenopausal females, postmenopausal females, and men aged 50 years orolder. FRACTURE RISK -FRAX Results: The 10 year probability of major osteoporotic fracture is11.4%, and of hip fracture is 6.5%, based on right femoral neck BMD. RECOMMENDATIONS Consider treatment if major osteoporotic fracture score is greater than orequal to 20%, or if the hip fracture score is greater than or equal to3%. IMPRESSION: Low bone density (OSTEOPENIA). T score meets the WHO criteria for low bonedensity (osteopenia) at one or more measured sites. The risk ofosteoporotic fracture increases approximately two-fold for each standarddeviation decrease in T-score. Dakota Joy MD DEXA from Last 3 Months Advance Directives Latest Code Status on File Code Status Date Activated Date Inactivated Comments Full Code 08/30/2013 6:01 AM 08/30/2013 10:15 AM Code Status History Code Status Date Activated Date Inactivated Comments Full Code 08/07/2013 6:24 AM 08/07/2013 11:32 AM Care Teams Salon Coordinator Relationship Specialty Start Date End Date Votel, Jaime Porter MD [address] [place] [address] PCP - General 07/07/07 Jasbir Painting [address] [place] [address] Internal Medicine Internal Medicine 09/07/11
--- OUTSIDE RECORDS SUMMARY | 2023-04-25 19:07 | XMS_ITS | Encounter Summary ---
Author Name Unknown Organization [facility] Address [address] [place] [id number] Care Team Providers Care Ambulance Driver Paramedic Name Role Phone Elsewhere, Pcp Primary Care Provider Unavailabl e Reason for Referral * Outpatient (Routine) - Closed Specialty Diagnoses / Procedures Referred By Brittni callejas Referred To Contact Cristal Solis APRN, C.N.P., M.S.N. [address] [place] [phone] [facility] [place] Referral ID Status Reason Start Date Expiration Date Visits Re quested Visits Authorized [id number] Closed 09/24/2021 09/24/2022 1 1 IALTY TRIMMER Reason for Visit * Outpatient (Routine) - Closed Specialty Diagnoses / Procedures Referred By Brittni t Referred To Contact Cristal Solis APRN, C.NTom, M.S.N. [address] [place] [phone] [facility] [place] Referral ID Status Reason Start Date Expiration Date Visits Re quested Visits Authorized [id number] Closed 09/24/2021 09/24/2022 1 1 Encounter Details Date Type Department Care Team (Latest Contact Info) Description 04/28/2022 11:54 AM SPECIALTY TRIMMER Hospital Encounter Department of Radiology in [place], [place] [address] [place] [address] Cristal Solis APRN, CTavonNTavonP., M.S.N. [address] [place] [address] Johann Mohan P.A.-C. [address] [place] [phone] Primary Malignant Neoplasm Of Prostate (HCC) (Primary [...] How often do you attend chur or sikhism services? Patient declined 02/03/2022 Do you belong to any clubs o r organizations such as methodist groups, unions, fraternal or athletic groups, or [...] Answer Date Recorded PHQ-2 Score 2 09/24/2021 [facility] of Occupat ional Health - Occupational Stress [...] mycophenolate (CELLCEPT) 500 mg tabletIndications:Medic ation Therapy Alf Not Anticoagulant Take 1 tablet (500 mg [...] Notes * Mar Clayton APRN, C.N.P. - 04/28/2022 12:10 PM CST SUBJECTIVE REFERRING PROVIDER Return Visit NUCLEAR MEDICINE PROVIDER Mar Clayton APRN, C.N.P. REASON FOR VISIT Lashell Gates is a 76 y.o. male returning for evaluation of disease process prior to cycle 5 ofPluvicto therapy. HISTORY OF PRESENT ILLNESS Mr. Gates is a 76 y.o. male with progressive metastatic, castration-resistant prostate cancer, who has received ARPI and Taxane-based therapies. Metastatic disease is located in the bone and lymphnodes. Mr. Gates returns for cycle 5. Previously, Mr. Gates has received the following doses:cycle 1: 200 mCi, cycle 2: 200 mCi, cycle 3: 200 mCi, and cycle 4: 200 mCi. Mr. Gates has been tolerating therapy treatments well. Patient notes the first 2 days following treatment he has normal energy level. On day 3-4 he does have some fatigue. He states that his fatigue varies and ???dependson the day?? . He describes double voiding and urinary frequency. He has nocturia times 1-2 and states that it is typically 2. He denies dysuria or gross hematuria. After the last couple treatments he has noted episodes of epistaxis which occur approximately 2 weeks following the treatment. He takes an 81 mg aspirin but does not take any prescriptive blood thinning medications. Approximately 1 month ago he was seen in his local ER in [place] and was evaluated. He did not require cauterization. He was given a clamp for his nose as well as a nasal spray to help with the bleeding. He has not hadany episodes since. He denies any sores that he is aware of. I have recommended he continue to [place] primary care team in the [place] regarding the nosebleeds if they continue to occur following treatments. He notes associated dry mouth with the treatments but feels that this is stable. He has hot flashesrelating to his hormonal therapy and these are also stable. He states that these are most predominant at night. He is had right shoulder and elbow pain but associates this to loading a carry on bag for his 1 month ago. The pain remained stable. He denies urinary incontinence. Oncology History Overview Note 1. July 01, 2004: underwent robotic-assisted radical prostatectomy by Dr. Duque. Pathology revealed Chica 3 + 3, pT2c, N0, MX, R0 adenocarcinoma of the prostate. 2. November 29, 2013: completed salvage external beam radiation therapy with Dr. Cole at [place], [place] for a biochemical recurrence. 3. July [...] carboplatin plus docetaxel chemotherapy throughDr. Mott at [place] [facility]. Notably, patient does have high tumor [...] Therapy EBRT 02/2017 Other PSA detectable on Lup holiday 11/11/2021 - Biological/Targeted/Hormone Therapy Radioligand Therapy Pluvicto: Cycle 1: 11/11/2021 Cycle 2: 12/23/2021 Cycle 3: 02/03/2022 Cycle 4: 03/17/2022 Cycle 5: 04/28/2022 Cycle 6: Chica Score: <6 well-differentiated/low grade (<=3+3, Grade Group 1) Performance Status: ECOG status: 0 - normal activity REVIEW OF SYSTEMS Pertinent items are noted in HPI; all other systems reviewed and negative. OBJECTIVE LABORATORY RESULTS Lab Results Component Value Date HGB 12.7 (L) 04/27/2022 HGB 12.8 (L) 03/17/2022 HGB 13.2 02/02/2022 WBC 9.5 04/27/2022 WBC 11.6 (H) 03/17/2022 WBC 11.0 (H) 02/02/2022 PLT 235 04/27/2022 PLT 231 03/17/2022 PLT 262 02/02/2022 NEUTROPHILS 7.92 (H) 04/27/2022 NEUTROPHILS 10.02 (H) 03/17/2022 NEUTROPHILS 9.81 (H) 02/02/2022 NA 138 04/27/2022 NA 141 03/17/2022 NA 138 02/02/2022 EGFR 74 04/27/2022 EGFR 71 03/17/2022 EGFR 75 02/02/2022 CREATININE 1.03 04/27/2022 CREATININE 1.07 03/17/2022 CREATININE 1.02 02/02/2022 BILITOT 0.3 04/27/2022 BILITOT 0.2 03/17/2022 BILITOT 0.3 02/02/2022 ALT 19 04/27/2022 ALT 24 03/17/2022 ALT 27 02/02/2022 AST 22 04/27/2022 AST 21 03/17/2022 AST 27 02/02/2022 ALBUMIN 4.2 04/27/2022 ALBUMIN 3.9 03/17/2022 ALBUMIN 4.0 02/02/2022 PSA 5.7 04/27/2022 PSA 10.3 (H) 03/17/2022 PSA 17.2 (H) 02/02/2022 IMAGING RESULTS Results for orders placed during [...] for orders placed in visit on 11/10/21 NC Res PET Narrative EXAM: [facility] PET RADIOPHARMACEUTICAL/MEDS: Route: intravenous Investigational gallium Ga 68 PSMA injection 4.81 millicurie (Ga-68 PSMA),4.81 millicurie Subject participated in research study IRB [id number] . Note: research images are stored in Nuclear Medicine The patient reports no recent vaccinations. TECHNIQUE: PSMA-targeted PET/CT scan was performed from the orbits through the thighs with low dose, non-contrast, free-breathing CT images for attenuation correction and anatomic localization (AC/AL), with imaging beginning at approximately 60 minutes after radiotracer injection. COMPARISON: PSMA PET/CT 09/23/2021. INDICATION: 76-year-old with history of [place] 6 prostate cancer. Status post prostatectomy. Additional [...] orders placed during the hospital encounter of 03/18/22 NM Post Therapy Gamaliel-177 PSMA Monitoring Whole Body with SPECT CT Multiple Narrative EXAM: NM POST TX GAMALIEL-177 PSMA MONITORING WB W SPECT CT MULTI RADIOPHARMACEUTICAL/MEDS: Gamaliel-177 PSMA-617 (PLUVICTO) therapy was administered yesterday and noted in a therapy note on that date. This scan is a quantitative 3D image of where in the body the previously administered therapy is located, and is used for monitoring the tumor and organ biodistribution of that therapy. TECHNIQUE: Gamaliel-177 PSMA therapy monitoring imaging with quantitative SPECT performed from the vertex to the thighs with low dose, non-contrast free-breathing CT for attenuation correction and anatomic localization, and imaging beginning at approximately 24 hours after therapy injection. COMPARISON: Post cycle 3 therapy monitoring SPECT-CT 02/04/2022. Pre-cycle 3 gallium 11 PSMA PET/CT 02/02/2022. Pretherapy [id number] PET/CT 11/10/2021. Diagnostic chest CT 03/17/2022 INDICATION: Metastatic castrate resistant prostate cancer. Monitoring biodistribution after cycle 4 of therapy. FINDINGS: No PSMA avid tumor burden is detectable. Index lesions over time: Lesion 1: Manubrium SUV max undetectable, previously 1.6. Lesion 2: Left sternal body SUV max undetectable, previously 2.2. Lesion 3: Left posterior 7th rib SUV max undetectable, previously undetectable. Lesion 4: T7 vertebral body SUV max undetectable, previously undetectable. Lesion 5: Left medial clavicle SUV max undetectable, previously undetectable. Biodistribution: Otherwise expected physiologic distribution of PSMA uptake. Suspicious non-PSMA avid metastatic disease: None. Additional findings on the noncontrast low-dose CT: Continued evolution of progressive nodular masslike subpleural pulmonary opacities with areas of cavitation in both lungs, lacking PSMA activity, consistent with known vasculitis. Fibrotic interstitial findings. No significant change since recent diagnostic CT 03/17/2022. Colonic diverticulosis. Numerous non-PSMA sclerotic metastases consistent with treated disease. Impression 1. No residual Gamaliel-177 PSMA avid metastatic disease is detectable. 2. No suspicious non-PSMA avid metastatic disease. PSMA expression score: 1 3. Evolving pulmonary vasculitis. ASSESSMENT / PLAN 1. Primary Malignant Neoplasm Of Prostate (HCC) Mr. Gates meets criteria to proceed with Pluvicto therapy. Lab values are satisfactory. Discussed Pluvicto therapy in detail and answered all questions. The plan will be for Mr. Gates to receive a dose of 200 mCi. In regards to his epistaxis I discussed that it is not on the manufacture literature for a common side effect. He should continue to keep his medical team up-to-date if this keeps recurring. I discussed that he could utilize Vaseline and could discontinue his 81 mg aspirin during the episodes to help alleviate some of the bleeding. If these persist or become more problematic we could send him to our ENT colleagues. He understands when to go to the local emergency room department if he is not able to stop the bleeding. We discussed what to expect during treatment. [...] This card should becarried for 3 months. Informed consent was obtained from Mr. Gates by Nuclear Medicine prior to initiation of LuPSMA therapy, cycle 1. Mr. Gates is feeling well and indicates he is ready to proceed with treatment cycle 5. PATIENT EDUCATION Ready to learn, no apparent [...] physicians, nurse practitioners/physician assistants, nurses and other clinical support manager that specialize in this treatment. Also, reviewed the importance of maintaining ongoing care with [facility] and local oncology team, as well as primary care jorge smith. ADMINISTRATIVE BILLING Total time spent 20 minutes, which includes FTF time as well as chart review, review of labs and other tests and communication with other providers. IALTY TRIMMER documented in this encounter Plan of Treatment Upcoming Encounters Date Type Department Care Team (Late st Contact Info) Description 04/26/2023 3:15 PM SPECIALTY TRIMMER Appointment Department of Radiation Oncology in [place], [place] [address] [place] [address] Gurwinder Tejeda M.D. [address] [place] [address] 05/03/2023 1:00 PM SPECIALTY TRIMMER Appointment Department of Laboratory Medicine in [address] [phone] Carson Fletcher M.D. [address] [place] [phone] 05/03/2023 1:10 PM SPECIALTY TRIMMER Appointment Department of Laboratory Medicine in [address] [phone] Carson Fletcher M.D. [address] [place] [phone] 2023 2:30 PM SPECIALTY TRIMMER Virtual Visit Division of Pulmonary Medicine in [place], [place] [address] [place] [phone] Carson Fletcher M.D. [address] [place] [phone] 07/05/2023 11:20 AM CDT Lab Department of Laboratory Medicine and Pathology, [facility] in [place], [place] [address] [place] [phone] Kallie Rosales APRN, C.N.P., M.S. [address] [place] [phone] 07/05/2023 12:45 PM CDT Appointment Department of Radiology, [facility], in [place], [place] [address] [place] [phone] Kallie Rosales APRN, C.N.P., M.S. [address] [place] [phone] 07/06/2023 11:30 AM CDT Office Visit Department of Urology in [place], [place] [address] [place] [phone] Sushant Vicente M.D. [address] [place] [phone] Scheduled Referrals Name Type Priority Associated Diagnoses Order Schedule Radiology office visit (clinic) Outpatient Referral Routine Once for 1 Occurrences starting 04/28/2022 until 04/28/2022 documented as of this encounter Visit Diagnoses Diagnosis Primary Malignant Neoplasm Of Prostate (HCC)- Primary documented in this encounter Additional Health Concerns Assessment Noted Time PHQ-9 Depression Total Score: 2 10/13/19 14 10:45 AM CDT documented as of this encounter Care Teams Ambulance Driver Paramedic Relationship Specialty Start Date End Date Elsewhere, Pcp PCP - General Family Medicine 12/29/19 documented as of this encounter
--- OUTSIDE RECORDS SUMMARY | 2023-04-25 19:08 | XMS_ITS | Encounter Summary ---
Author Name [facility] Organization [facility] Address [address] [place] [address] Support Name Relationship Address Phone KATHYA CASTANEDA [place] [address] KATHYA CASTANED[place] [address] Insurance Providers: All historical and current Section Date Range: From patient's date of to the date document was created. This section includes the names of all active insurance providers for the patient. Insurance Provider Type of Coverage Plan Name Start of Policy Coverage End of Policy Coverage Group Number Member ID Insurance Provider's Telephone Number Policy Jarvis's Name Patient's Relationship to Policy Jarvis BCBS [facility] (WNR) MEDICARE (M) [facility] (WNR) Mar 22, 2013 DO NOT BILL [id number] LEONEL J PATIENT [place] MED[place] SUPPLEMEN [place] MEDIC ARE SUPPL EMENT Mar 22, 2018 [id number] LEONEL, J PATIENT [place] MED[place] ARE SUPPL EMENT Mar 22, 2018 [id number] Martin CASTANEDA PATIENT [place] [facility] (WNR) MEDICARE ADVANTAGE [facility] (WNR) Mar 22, 2009 [id number] [phone] LEONEL J PATIENT [place] MED[place] SUPPLEMEN [place]U BASIC MEDIC ARE BLUE Mar 22, 2018 [id number] [phone] LEONEL J PATIENT [place] SUPPLEMEN [place]U MEDIC ARE SUPPL EMENT Mar 22, 2018 [id number] LEONEL, Martin PATIENT MEDICARE (WNR) MEDICARE (M) PART A Mar 22, 2018 PART A [id number] [facility] Martin CASTANEDA PATIENT MEDICARE (WNR) MEDICARE (M) PART B Mar 22, 2018 PART B [id number] [facility] Martin CASTANEDA PATIENT MEDICARE (WNR) MEDICARE (M) PART A Apr 22, 2008 PART A [id number] [facility] [phone] LEONEL Martin PATIENT MEDICARE (WNR) MEDICARE (M) PART B Apr 22, 2008 PART B [id number] [facility] [phone] Martin CASTANEDA PATIENT Selected Encounter This section includes the information on record at MD for the Encounter. Date/Time Encounter Type Encounter Description Reason Pro vider Source August 06, 2022 12:00 PM Outpatient Encounter TELEPHONE TRIAGE IHE Encounter Template Text not used by MD Plan of Treatment: Future Appointments (+ 6 months) and Future Tests (+/- 45 days) The Plan of Treatment section includes future care activities for the patient [facility] This section includes future appointments and future orders which are active, pending or scheduled. Future Appointments This section includes appointments that were scheduled to occur 6 months from the date of the Encounter, up to a maximum of 20 appointments. The data comes from all MD treatment facilities. Appointment Date/Time Appointment Type Appointme nt Facility Name Nov 19, 2022 01:00 PM AMBULATORY - SURGERY [facility] Jan 07, 2023 12:30 PM AMBULATORY - SURGERY [facility] Social History: Smoking Status (Most current) and Tobacco Use (All prior to encounter date) This section includes the most current, and the historical, smoking and tobacco- related health factors from the MD facility where the Encounter took place. Current Smoking Status This section includes the most current smoking, or tobacco-related health factor, from the MD facility where the Encounter took place. Date/Time Current Smoking Status Comment Facil ity Aug 24, 2013 08:36 AM FORMER TOBACCO USE <1Y [facility] Tobacco Use History This section includes a history of the smoking, or tobacco-related health factors, that were collected on or before the date of the Encounter. The data comes from the MD facility where the Encounter took place. Date/Time Smoking Status/Tobacco Use Comment F acility Oct 03, 2012 08:49 AM CURRENT TOBACCO USER [facility] Encounter Notes: All associated encounter notes This section contains the clinical notes associated to the Encounter. Date/Time Encounter Note(s) Provider Source August 06, 2022 12:00 PM NONVA CONSULT: LOCAL TITLE: COMMUNITY CARE CONSULT RESULT DS ROUTINE AUD STANDARD TITLE: NONVA CONSULT DATE OF NOTE: AUGUST 06, 2022@12:00 ENTRY DATE: OCT 21, 2022@16:03:33 AUTHOR: CYNTHIA NARANJO EXP COSIGNER: URGENCY: STATUS: COMPLETED VistA Imaging - Scanned Document SCANNED DOCUMENT SIGNATURE NOT REQUIRED Electronically Filed: 10/21/2022 by: SANDRA WILDER LPN, JANE M [facility]
--- OUTSIDE RECORDS SUMMARY | 2023-04-25 19:08 | XMS_ITS | Encounter Summary ---
Author Name Department of Vetera Affairs Organization Department of Vetera ns Affairs Address [address] [place] [address] Support Name Relationship Address Phone KATHYA CASTANEDA [place] [address] KATHYA CASTANEDA Emergency [place] [address] Insurance Providers: All historical and [...] Name Patient's Relationship to Policy Jarvis BCBS [facility] (WNR) MEDICARE (M) [facility] (WNR) Mar 22, 2013 DO NOT BILL [id number] [phone] Martin CASTANEDA PATIENT [place] MED[place] SUPPLEMEN ESAU MEDIC ARE SUPPL EMENT Mar 22, 2018 [id number] [phone] Martin CASTANEDA PATIENT [place] MEDIC ARE SUPPL EMENT Mar 22, 2018 [id number] Martin CASTANEDA [place]IENT [place] [facility] (WNR) MEDICARE ADVANTAGE [facility] (WNR) Mar 22, 2009 [id number] [phone] Martin CASTANEDA PATIENT [place] OF [place] MEDICARE SUPPLEMEN ESAU BASIC MEDIC ARE BLUE Mar 22, 2018 [id number] [phone] Martin CASTANEDA PATIENT [place] MED[place]ARE SUPPLEMEN ESAU MEDIC ARE SUPPL EMENT Mar 22, 2018 [id number] LEONEL, J PATIENT MEDICARE (WNR) MEDICARE (M) PART A Mar 22, 2018 PART A [id number] Martin CASTANEDA PATIENT MEDICARE (WNR) MEDICARE (M) PART B Mar 22, 2018 PART B [id number] [facility] Martin CASTANEDA PATIENT MEDICARE (WNR) MEDICARE (M) PART A Apr 22, 2008 PART A [id number] [phone] Martin CASTANEDA PATIENT MEDICARE (WNR) MEDICARE (M) PART B Apr 22, 2008 PART B [id number] [facility] [phone] Martin CASTANEDA PATIENT Selected Encounter This section includes the information on record at [place] for the Encounter. Date/Time Encounter Type Encounter Description Reason Provider Source Jan 07, 2023 12:30 PM CONFORMITY EVALUATION AUDIOLOGY ICD-10-CM H90.3 Sensorineural hearing loss, bilateral [place] ON [facility] Encounter Template Text not used by [place] Assessments - Encounter Diagnoses This section includes the primary and secondary diagnoses documented for the Encounter. Date/Time Primary/Secondary Diagnosis Diagnosis Name Provider Source Jan 07, 2023 12:24 PM PRIMARY Sensorineural hearing loss, bilateral [place]T,GIDEON ON [facility] Jan 07, 2023 12:24 PM SECONDARY Tinnitus, bilateral [place] ON [facility] Social History: Smoking Status (Most current) and Tobacco Use (All prior to encounter date) This section includes the most current, and the historical, smoking and tobacco- related health factors from the [place] facility where the Encounter took place. Current Smoking Status This section includes the most current smoking, or tobacco-related health factor, from the [place] facility where the Encounter took place. Date/Time Current Smoking Status Comment Facil ity Aug 24, 2013 08:36 AM FORMER TOBACCO USE <1Y [facility] Tobacco Use History This section includes a history of the smoking, or tobacco-related health factors, that were collected on or before the date of the Encounter. The data comes from the [place] facility where the Encounter took place. Date/Time Smoking Status/Tobacco Use Comment F acility Oct 03, 2012 08:49 AM CURRENT TOBACCO USER [facility] Encounter Notes: All associated encounter notes This section contains the clinical notes associated to the Encounter. Date/Time Encounter Note(s) Provider Source Jan 07, 2023 12:23 PM AUDIOLOGY NOTE: LOCAL TITLE: AUDIOLOGY CLINIC NOTE STANDARD TITLE: AUDIOLOGY NOTE DATE OF NOTE: JAN 07, 2023@12:23 ENTRY DATE: JAN 07, 2023@12:23:27 AUTHOR: DENNIS SANDERS EXP COSIGNER: URGENCY: STATUS: COMPLETED AUDIOLOGY CLINIC NOTE Has ADDENDA DIAGNOSIS: Encounter for Fitting and Adjustment of Hearing Aid Sensorineural loss Tinnitus REASON FOR VISIT: Therapeutic - hearing aid fitting, conformity evaluation (real-ear measures), orientation and counseling using a standard curriculum Spring was seen for Hearing Aid [place] Appointment OTOSCOPY: Both Ears: Free of excessive cerumen. Normal anatomy bilaterally HISTORY: is an experienced hearing aid wearer. Recommended keep his old hearing aids as a backup/spare as needed. HEARING AIDS (Right/Left) fit 01/07/23: Make: GN Resound Model: Omnia 60 mini ALFRED-R Serial Numbers R/L: [id number] / [id number] [place] Administrator/Slim Tube Size: 3S Dome/Earmold: Med Open Domes *Aids were ordered with N-case molds but he didn't like how they felt. He has them in a case that was sent home with him. ACTION: Hearing aids are a good physical fit. Feedback test was completed and feedback associate manager affiliate marketing was activated. Hearing aids were programmed to prescriptive targets, which were derived from the Veterans hearing loss. Real-ear measures (conformity evaluation) were completed (NAL-NL2). Gain and output were adjusted to ensure audibility and comfort. Loudness intolerance was measured using a 90 dB MPO tone sweep and the patient was able to tolerate the output of the hearing device(s). Veterans subjective impressions were considered while adjusting the hearing aids. Balance, comfort, and localization were verified. Indicator tones were demonstrated for . Volume control enabled- (short press) Right to Raise, Left to Lower Program button enabled (long press right) Programs are as follows: 1. All-Around 2. Front Focus [email or web address] cell phone was paired to the hearing aids and Saray was reviewed in detail (volume control, program changes, remote microphone, streaming calls and music, etc.). Spring was counseled using a standard curriculum (30 minutes) regarding: -Full-time hearing aid use and acclimating to amplification -Realistic expectations for hearing aid use -Appropriate communication strategies -Battery insertion and removal/How to charge the hearing aids -Location and operation of all controls -Proper care and maintenance -Protecting hearing in high noise levels -Warning about battery ingestion -[facility] and Call Center contact information and services, including the trial period. reported good sound quality and equal balance between ears after adjustments were made. Spring reported a comfortable fit in both ears. demonstrated understanding of the new aids and was able to insert the hearing aids appropriately, as well as manipulate the volume control and battery door/charging unit. Prognosis for success is good, given the Veterans response to the hearing aids. Hearing aids were issued and batteries and supplies were mailed. was provided with a copy of [place] issuance form [id number]. -Sending vet's older aids for repair. They would un-pair from his phone frequently and the batteries were not lasting all day. PLAN: -Mail repaired hearing aids to the vet ([place] address). /leigh/ MADDIE ROBERTS STAFF WASTEWATER TREATMENT PLANT ATTENDANT Signed: 01/07/2023 15:12 01/16/2023 ADDENDUM STATUS: COMPLETED MAILING REPAIRED HEARING AIDS TO THE ADDRESS ON FILE /leigh/ CHERELLE Monique [facility] PRIMARY SUBSTANCE ABUSE COUNSELOR Signed: 01/16/2023 13:08 DENNIS SANDERS [facility]
--- OUTSIDE RECORDS SUMMARY | 2023-04-25 19:08 | XMS_ITS | Encounter Summary ---
Author Name Department of Vetera Affairs Organization Department of Vetera ns Affairs Address [address] [place] [address] Support Name Relationship Address Phone KATHYA CASTANEDA [place] [address] KATHYA CASTANEDA [place] [address] Insurance Providers: All historical and [...] Name Patient's Relationship to Policy Jarvis BCBS [facility] (WNR) MEDICARE (M) [facility] (WNR) Mar 22, 2013 DO NOT BILL [id number] Martin CASTANEDA PATIENT [place] MED[place] SUPPLEMEN E[place]U MEDIC ARE SUPPL EMENT Mar 22, 2018 [id number] [phone] Martin CASTANEDA PATIENT [place] SU[place]U MEDIC ARE SUPPL EMENT Mar 22, 2018 [id number] [phone] Martin CASTANEDA PATIENT [place] [facility] (WNR) MEDICARE ADVANTAGE [facility] (WNR) Mar 22, 2009 [id number] [phone] Martin CASTANEDA PATIENT [place] MED[place]ARE SUPPLEMEN ESAU BASIC MEDIC ARE BLUE Mar 22, 2018 [id number] Martin CASTANEDA PATIENT [place] SUPPLE[place] E[place]U MEDIC ARE SUPPL EMENT Mar 22, 2018 [id number] LEONEL, Martin PATIENT MEDICARE (WNR) MEDICARE (M) PART A Mar 22, 2018 PART A [id number] [facility] Martin CASTANEDA PATIENT MEDICARE (WNR) MEDICARE (M) PART B Mar 22, 2018 PART B [id number] [facility] [phone] Martin CASTANEDA PATIENT MEDICARE (WNR) MEDICARE (M) PART A Apr 22, 2008 PART A [id number] [phone] Martin CASTANEDA PATIENT MEDICARE (WNR) MEDICARE (M) PART B Apr 22, 2008 PART B [id number] [facility] [phone] LEONEL, J PATIENT Selected Encounter This section includes the information on record at [place] for the Encounter. Date/Time Encounter Type Encounter Description Reason Provider Source Nov 19, 2022 01:00 PM HEARING AID CHECK BOTH EARS AUDIOLOGY ICD-10-CM H90.3 Sensorineural hearing loss, bilateral DOMINGO,JOSEE NDRA E I[facility] Encounter Template Text not used by [place] Assessments - Encounter Diagnoses This section includes the primary and secondary diagnoses documented for the Encounter. Date/Time Primary/Secondary Diagnosis Diagnosis Name Provider Source Nov 19, 2022 01:35 PM PRIMARY Sensorineural hearing loss, bilateral DOMINGO,JOSEE NDRA E [facility] Nov 19, 2022 01:35 PM SECONDARY Tinnitus, bilateral DOMINGO,JOSEE NDRA E [facility] Plan of Treatment: Future Appointments (+ 6 months) and Future Tests (+/- 45 days) The Plan of Treatment section includes future care activities for the patient from all [place] treatmentfacilities. This section includes future appointments and future orders which are active, pending or scheduled. Future Appointments This section includes appointments that were scheduled to occur 6 months from the date of the Encounter, up to a maximum of 20 appointments. The data comes from all [place] treatment facilities. Appointment Date/Time Appointment Type Appointme nt Facility Name Jan 07, 2023 12:30 PM AMBULATORY - SURGERY [facility] Social History: Smoking Status (Most current) and Tobacco Use (All prior to encounter date) This section includes the most current, and the historical, smoking and tobacco- related health factors from the [facility] where the Encounter took place. Current Smoking Status This section includes the most current smoking, or tobacco-related health factor, from the [facility] where the Encounter took place. Date/Time Current Smoking Status Comment Facil ity Aug 24, 2013 08:36 AM FORMER TOBACCO USE <1Y [facility] Tobacco Use History This section includes a history of the smoking, or tobacco-related health factors, that were collected on or before the date of the Encounter. The data comes from the [facility] where the Encounter took place. Date/Time Smoking Status/Tobacco Use Comment F acility Oct 03, 2012 08:49 AM CURRENT TOBACCO USER [facility] Encounter Notes: All associated encounter notes This section contains the clinical notes associated to the Encounter. Date/Time Encounter Note(s) Provider Source Nov 19, 2022 01:30 PM AUDIOLOGY NOTE: LOCAL TITLE: AUDIOLOGY CLINIC NOTE STANDARD TITLE: AUDIOLOGY NOTE DATE OF NOTE: NOV 19, 2022@13:30 ENTRY DATE: NOV 19, 2022@13:30:25 AUTHOR: NIA DOMINGO COSIGNER: URGENCY: STATUS: COMPLETED SUBJECT: KEMP Follow-Up/New KEMP Selection DIAGNOSIS: Encounter for Fitting and Adjustment of Hearing Aid Bilateral Sensorineural Hearing Loss Bilateral Tinnitus Reason for visit: Hearing aid service Otoscopy: Free of excessive cerumen, normal anatomy bilaterally HISTORY: Patient seen for a hearing aid service/hearing aid check. He reported that his hearing aids frequently become unpaired/disconnected from his iPhone. He also reported high battery drain and stated he does not get a full days use when the hearing aids are fully charged. He was seen at [facility] via [facility], and the hearing aids were sent for repair; this did not resolve the issue. An updated hearing test/hearing aid programming was also completed at that clinic. Hearing aid-right/left; Date Fit: Nov Make: Resound Model: Linx Quattro TS61 Style: ALFRED Sorenson Serial #: [id number] Client Strategist Size: 2MP Dome: Medium open ACCESSORIES: TV Streamer 2 SN: [id number] ACTION: Hearing aids were cleaned and checked. A listening check revealed good sound quality. is eligible for new hearing aids at this time. He had a recent hearing test via [facility] dated 09/03/2022, which will be used for the new hearing aid order (results located in [facility]). Audiogram was saved to [facility] today. Different styles/technologies were reviewed with consideration given to [place]'s listening situations and lifestyle needs. The [place] has good vision, memory, and dexterity for hearing aid use. Otoscopy normal post ear mold impression procedure, both ears. Hearing aids ordered: Resound Omni TS 60 mini RICs, color 76, 3LP receivers, canal lock encased molds. PLAN: RTC for fitting of new devices. Will plan to send Linx Quattro devices to [facility] for repair at this time. Will also order a second green chain off bearer to be mailed to the 's address per his request. He spends 6 months of the year in [place] and will leave in January. Patient is in agreement with this plan. /leigh/ MADDIE CUEVA STAFF VIDEO EFFECTS EDITOR Signed: 11/19/2022 14:24 NIA DOMINGO [facility]
--- OUTSIDE RECORDS SUMMARY | 2023-04-25 19:08 | XMS_ITS | Encounter Summary ---
Author Name Department of Vetera Affairs Organization Department of Vetera ns Affairs Address [address] [place] [address] Support Name Relationship Address Phone KATHYA CASTANEDA [place] [address] KATHYA CASTANEDA [place] [address] Insurance Providers: All historical and [...] Name Patient's Relationship to Policy Jarvis BCBS [facility] (WNR) MEDICARE (M) [facility] (WNR) Mar 22, 2013 DO NOT BILL [id number] LEONEL, J PATIENT [place] SUPPLEMEN E[place]U MEDIC ARE SUPPL EMENT Mar 22, 2018 [id number] [phone] LEONEL, J PATIENT [place] SUPPLE[place]U MEDIC ARE SUPPL EMENT Mar 22, 2018 [id number] LEONEL J PATIENT [place] [facility] ([place]) MEDICARE ADVANTAGE [facility] (WNR) Mar 22, 2009 [id number] LEONEL, J PATIENT [place] MED[place]ARE SUPPLEMEN ESAU BASIC MEDIC ARE BLUE Mar 22, 2018 [id number] [phone] LEONEL, J PATIENT [place] MED[place]ARE SUPPLEMEN ESAU MEDIC ARE SUPPL EMENT Mar 22, 2018 [id number] Martin CASTANEDA PATIENT MEDICARE (WNR) MEDICARE (M) PART B Mar 22, 2018 PART B [id number] [phone] Martin CASTANEDA PATIENT MEDICARE (WNR) MEDICARE (M) PART A Mar 22, 2018 PART A [id number] Martin CASTANEDA PATIENT MEDICARE (WNR) MEDICARE (M) PART A Apr 22, 2008 PART A [id number] [phone] Martin CASTANEDA PATIENT MEDICARE (WNR) MEDICARE (M) PART B Apr 22, 2008 PART B [id number] [phone] Martin CASTANEDA PATIENT Selected Encounter This section includes the information on record at [place] for the Encounter. Date/Time Encounter Type Encounter Description Reason Pro vider Source Feb 15, 2023 01:03 PM Outpatient Encounter PRIMARY CARE/MEDICINE IHE Encounter Template Text not used by [place] Encounter Notes: All associated encounter notes This section contains the clinical notes associated to the Encounter. Date/Time Encounter Note(s) Provider Source Feb 15, 2023 01:03 PM TELEPHONE ENCOUNTE R NOTE: LOCAL TITLE: HAS TELEPHONE NOTE (TP) STANDARD TITLE: TELEPHONE ENCOUNTER NOTE DATE OF NOTE: FEB 15, 2023@13:03 ENTRY DATE: FEB 15, 2023@13:03:47 AUTHOR: GRAYSON SOLANO EXP COSIGNER: URGENCY: STATUS: COMPLETED HEALTH ADMINISTRATION SERVICE(HAS) TELEPHONE CALL Patient Name: Martin CASTANEDA Age: 77 Sex: MALE Patient Identification (include at least two): Full Name, Full SSN Primary Care Provider: LISSY LOVING Caller: Patient Primary Language: Citizen Of [place] Patient's Best Telephone Number to Reach Patient/Caller: SAME ABOVE DATE OF CALL: FEB 15, 2023 REASON FOR CALL: Service: Primary Care (PACT) Other: CALLED TO CANCEL FUTURE LAB SCHEDULED THAT WAS SCHEDULED ON 03/30/2023 AND ANNUAL PCP APPOINTMENT ON 04/06/2023. IS OUT OF TOWN AND DOESN'T KNOW WHEN HE WILL BE RETURNING. HE DID SAY HE WOULD CALL FOR HIS ANNUAL ORDERS TO BE PLACED WHEN HE KNOWS HE WILL BE BACK IN [place]. THANK YOU /leigh/ GRAYSON SOLANO Signed: 02/15/2023 13:05 Receipt Acknowledged By: 02/16/2023 10:33 /es/ DAVE DEXTER REGISTERED NURSE 02/16/2023 01:04 /leigh/ YUE YBARRA PRIMARY CARE GRAYSON SOLANO [facility]
--- OUTSIDE RECORDS SUMMARY | 2023-04-25 19:08 | XMS_ITS | Continuity of Care Document ---
Author Name [facility] Organization [facility] Care Team Providers Care Dormitory Maid Name Role Phone [facility] Unavailable Unavailable Problems Combined list of problems from Department of [facility] and Veterans Affairs facilities. It does not include entries that were removed or entered in error. Problem Status Onset Date Problem Type Date of Resolution Comments Source Benign essential hypertension Active Condition [facility] CAD - Coronary Artery Disease (SCT 27606962) Active Condition [facility] Cataract (SNOMED CT 525263025) Active Condition [facility] Compression Fracture (ICD-9-CM 829.0) Active Condition [facility] Gastroesophageal Reflux Disease (SNOMED CT 204111832) Active Condition [facility] Gastroesophageal Reflux Disorder * (ICD-9-CM 530.81) Active Condition [facility] Hyperlipidemia * (ICD-9-CM 272.4) Active Condition [facility] Hypertension, Benign Active Condition [facility] Malignant tumor of prostate Active Condition [facility] Mixed hyperlipidemia Active Condition [facility] Sensorineural Hearing Loss * (ICD-9-CM 389.[address]) [address] 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 [facility] Claudine's granulomatosis Active Condition [facility] Claudine's syndrome, limited form Active Condition [facility] Carcinoma of prostate Inactive Condition 04/10/2021 [facility] Diagnosis: ICD-10-CM H90.3 Sensorineural hearing loss, bilateral Active Diagnosis [facility] Diagnosis: ICD-10-CM C61 Malignant neoplasm of prostate Active Diagnosis [facility] Diagnosis: ICD-10-CM Z46.1 Encounter for fitting and adjustment of hearing aid Active Diagnosis [facility] Medications Combined list of outpatient medications from Department of [facility] and [facility] Affairs facilities.Medications provided include 1) outpatient medications from the last 15 months, and 2) patient-reported medications. Medication Details Route Status Patient Instructions Prescription Expires Prescription Number Last Dispense Date Ordering Provider Order Date Source ASPIRIN 81MG TAB,CHEWABL E ORAL ACTIVE NU LIANTHONY 2014 [facility] ASPIRIN 81MG TAB,EC TAKE ONE TABLET BY MOUTH EVERY DAY ORALLY ACTIVE BOYUM,ALL AN J 2013 [facility] ATORVASTATI N CA 80MG TAB TAKE ONE-HALF TABLET BY MOUTH DAILY AT BEDTIME ORAL ACTIVE Shanae PERDUE 2017 [facility] CENTRUM TAB--OTC TAKE ONE TABLET BY MOUTH EVERY DAY ORALLY ACTIVE BOYUM,ALL AN J 2013 [facility] CHOLECALCIF UNRULY 25MCG (1,000UNIT) TAB TAKE ONE TABLET BY MOUTH EVERY DAY ORALLY ACTIVE BOYUM,ALL AN J 2013 [facility] FISH OIL 1000MG (500MG DHA/EPA) CAP,ORAL TAKE 1 CAPSULE BY MOUTH EVERY DAY ORALLY ACTIVE BOYUM,ALL J 2013 [facility] FISH OIL CAP/TAB ACTIVE NU ANTHONY LI 2014 [facility] LEUPROLIDE (LUPRON) 1-MONTH *RESTRICTED * INJ,SUSP,SA INJECT INTRAMUS CULARLY OR SUBCUTAN EOUSLY ONE TIME INTRAM USCULA R/SUBC UTANEO US ACTIVE MANUEL MONTAÑO 2015 [facility] MAGNESIUM OXIDE 400MG TAB TAKE ONE TABLET BY MOUTH EVERY DAY IMELDA ACTIVE JAM LOVING 2021 [facility]ia [facility] MULTIVITAMI NS W/MINERALS TAB ORAL ACTIVE NU LIANTHONY 2014 [facility] MYCOPHENOLA TE MOFETIL 500MG TAB TAKE TWO TABLETS BY MOUTH TWICE A DAY IMELDA ACTIVE JAM LOVING 2019 Sofia [facility] NITROGLYCER IN 0.4MG TAB,SUBLING UAL DISSOLVE ONE TABLET UNDER THE TONGUE EVERY 5 MINUTES NEEDED SUBLIN GUAL JAM MATT 2021 Sofia [facility] PANTOPRAZOL E NA 40MG TAB,EC TAKE ONE TABLET BY MOUTH EVERY MORNING BEFORE BREAKFAS T IMELDA ACTIVE JAM LOVING 2021 Sofia [facility]LL [facility] POTASSIUM CHLORIDE 10MEQ TAB,SA TAKE ONE TABLET BY MOUTH EVERY DAY ORAL ACTIVE JAM LOVING 2022 [facility] PREDNISONE 5MG TAB TAKE ONE TABLET BY MOUTH BIDWF ORAL ACTIVE JAM LOVING 2018 Sofia MITCHELL [facility] SULFAMETHOX AZOLE 800MG/TRIME THOPRIM 160MG TAB TAKE ONE TABLET BY MOUTH EVERY DAY ORAL ACTIVE JAM LOVING 2018 Sofia [facility]CHELL [facility] OF [facility] VITAMIN D3 (CHOLECALCI FEROL) TAB ACTIVE SUCHODOLS ANTHONY LI 2014 [facility] Immunizations Combined list of available immunizations from the Department of Defense and Veterans Affairs facilities. Immunization Series Date Given Administered By Site Reaction Lot Number CVX Code Drug Sweet Potato Disintegrator Status Comments Source INFLUENZA, UNSPECIFIED FORMULATION 2021 88 complet ed Sofia [facility] COVID-19 (MODERNA), MRNA, LNP-S, PF, 100 MCG/0.5ML DOSE OR 50 MCG/0.25ML DOSE 3 2021 207 complet ed C.WTavon [facility]LL [facility] COVID-19 (MODERNA), MRNA, LNP-S, PF, 100 MCG OR 50 MCG DOSE 3 2020 207 complet ed C.WTavon [facility] INFLUENZA, UNSPECIFIED FORMULATION 2020 88 complet ed [facility] COVID-19 (MODERNA), MRNA, LNP-S, PF, 100 MCG/0.5 ML DOSE 2 2020 207 complet ed MOD; [id number]; 1 [facility] COVID-19 (MODERNA), MRNA, LNP-S, PF, 100 MCG/0.5 ML DOSE 1 2020 207 complet ed MOD; [id number]; 1 [facility] INFLUENZA, UNSPECIFIED FORMULATION 2019 88 complet ed C.Saud [facility] INFLUENZA, UNSPECIFIED FORMULATION 2018 88 complet ed [facility] C[facility]Saud [facility] INFLUENZA, UNSPECIFIED FORMULATION 2017 88 complet ed Sofia [facility] PNEUMOCOCCAL CONJUGATE PCV 13 2017 133 complet ed [facility] INFLUENZA, UNSPECIFIED FORMULATION 2016 88 complet ed approx date local provider Sofia [facility]CHELL [facility] INFLUENZA, UNSPECIFIED FORMULATION 2015 88 complet ed [place] Sofia MITCHELL [facility] INFLUENZA, UNSPECIFIED FORMULATION 2014 88 complet ed [facility] INFLUENZA, UNSPECIFIED FORMULATION 2014 88 complet ed Sofia [facility] INFLUENZA, UNSPECIFIED FORMULATION 2012 88 complet ed Sofia [facility]LL [facility] INFLUENZA, UNSPECIFIED FORMULATION [address] [facility] TDAP 2012 115 complet ed Sofia [facility]CHELL [facility] TDAP [address] [facility] INFLUENZA, UNSPECIFIED FORMULATION 2011 88 complet ed Sofia [facility]LL [facility] PNEUMOCOCCAL POLYSACCHARID E PPV23 [address] [facility] PNEUMOCOCCAL, UNSPECIFIED FORMULATION [address] [facility] ZOSTER LIVE [address] [facility] TD(ADULT) UNSPECIFIED FORMULATION 2010 139 complet ed Sofia [facility]LL [facility] Results Combined list of recent chemistry, hematology and other laboratory results from Department of Defense and Veterans Affairs, ranging from 15 months to all on record, depending upon the facility. Order Name Results Value Reference Range Date Interpretation Specimen Comments Source PROSTATIC SPECIFIC ANTIGEN PROSTATE SPECIFIC AG [MASS/VOLUME ] IN SERUM OR PLASMA 7.3 0.0 - 4.0 04/01 H Specimen Type: SERUM No comment entered. Ordering Provider: VASILE LOVING Report Released Date/Time: Apr 10, 2021 11:31 AM Reporting Lab: [address] [address] Performing Lab: [address] [address] [facility] CBC (AUTO DIFF) LEUKOCYTES [#/VOLUME] IN BLOOD 9.7 4.00 - 10.60 04/01 Specimen Type: BLOOD No comment entered. Ordering Provider: VASILE LOVING Report Released Date/Time: Apr 10, 2021 11:31 AM Reporting Lab: [address] [address] Performing Lab: [address] [address] [facility] CBC (AUTO DIFF) ERYTHROCYTES [#/VOLUME] IN BLOOD BY AUTOMATED COUNT 3.92 4.23 - 5.75 04/01 L Specimen Type: BLOOD No comment entered. Ordering Provider: VASILE LOVING Report Released Date/Time: Apr 10, 2021 11:31 AM Reporting Lab: [address] [address] Performing Lab: [address] [address] [facility] CBC (AUTO DIFF) HEMOGLOBIN [MASS/VOLUME ] IN BLOOD 13.1 12.8 - 17.0 04/01 Specimen Type: BLOOD No comment entered. Ordering Provider: VASILE LOVING Report Released Date/Time: Apr 10, 2021 11:31 AM Reporting Lab: [address] [address] Performing Lab: [address] [address] [facility] CBC (AUTO DIFF) HEMATOCRIT [VOLUME FRACTION] OF BLOOD 40.2 39.3 - 50.0 04/01 Specimen Type: BLOOD No comment entered. Ordering Provider: VASILE LOVING Report Released Date/Time: Apr 10, 2021 11:31 AM Reporting Lab: [address] [address] Performing Lab: [address] [address] [facility] CBC (AUTO DIFF) MCV [ENTITIC VOLUME] BY AUTOMATED COUNT 102.6 79.7 - 99.5 04/01 H Specimen Type: BLOOD No comment entered. Ordering Provider: VASILE LOVING Report Released Date/Time: Apr 10, 2021 11:31 AM Reporting Lab: [address] [address] Performing Lab: [address] [address] [facility] CBC (AUTO DIFF) MCH [ENTITIC MASS] BY AUTOMATED COUNT 33.4 25.5 - 33.6 04/01 Specimen Type: BLOOD No comment entered. Ordering Provider: VASILE LOVING Report Released Date/Time: Apr 10, 2021 11:31 AM Reporting Lab: [address] [address] Performing Lab: [address] [address] [facility] CBC (AUTO DIFF) MCHC [MASS/VOLUME ] BY AUTOMATED COUNT 32.6 30.9 - 35.1 04/01 Specimen Type: BLOOD No comment entered. Ordering Provider: VASILE LOVING Report Released Date/Time: Apr 10, 2021 11:31 AM Reporting Lab: [address] [address] Performing Lab: [address] [address] [facility] CBC (AUTO DIFF) PLATELETS [#/VOLUME] IN BLOOD BY AUTOMATED COUNT 238 160 - 410 04/01 Specimen Type: BLOOD No comment entered. Ordering Provider: VASILE LOVING Report Released Date/Time: Apr 10, 2021 11:31 AM Reporting Lab: [address] [address] Performing Lab: [address] [address] [facility] CBC (AUTO DIFF) ERYTHROCYTE DISTRIBUTION WIDTH [RATIO] BY AUTOMATED COUNT 51.9 37.1 - 49.0 04/01 H Specimen Type: BLOOD No comment entered. Ordering Provider: VASILE LOVING Report Released Date/Time: Apr 10, 2021 11:31 AM Reporting Lab: [address] [address] Performing Lab: [address] [address] [facility] CBC (AUTO DIFF) PLATELET MEAN VOLUME [ENTITIC VOLUME] IN BLOOD BY AUTOMATED COUNT 9.2 8.9 - 12.3 01/11 /2023 Specimen Type: BLOOD No comment entered. Ordering Provider: VASILE LOVING Report Released Date/Time: Apr 10, 2021 11:31 AM Reporting Lab: [address] [address] Performing Lab: [address] [address] [facility] CBC (AUTO DIFF) NUCLEATED ERYTHROCYTES [#/VOLUME] IN BLOOD BY AUTOMATED COUNT 0.00 0.00 - 0.12 04/01 Specimen Type: BLOOD No comment entered. Ordering Provider: VASILE LOVING Report Released Date/Time: Apr 10, 2021 11:31 AM Reporting Lab: [address] [address] Performing Lab: [address] [address] [facility] CBC (AUTO DIFF) NUCLEATED ERYTHROCYTES [PRESENCE] IN BLOOD BY AUTOMATED COUNT 0.0 0.0 - 0.2 04/01 Specimen Type: BLOOD No comment entered. Ordering Provider: VASILE LOVING Report Released Date/Time: Apr 10, 2021 11:31 AM Reporting Lab: [address] [address] Performing Lab: [address] [address] [facility] CBC (AUTO DIFF) NEUTROPHILS [#/VOLUME] IN BLOOD BY AUTOMATED COUNT 7.96 2.2 - 7.4 04/01 H Specimen Type: BLOOD No comment entered. Ordering Provider: VASILE LOVING Report Released Date/Time: Apr 10, 2021 11:31 AM Reporting Lab: [address] [address] Performing Lab: [address] [address] [facility] CBC (AUTO DIFF) LYMPHOCYTES [#/VOLUME] IN BLOOD BY AUTOMATED COUNT 0.60 1.0 - 3.7 04/01 L Specimen Type: BLOOD No comment entered. Ordering Provider: VASILE LOVING Report Released Date/Time: Apr 10, 2021 11:31 AM Reporting Lab: [address] [address] Performing Lab: [address] [address] [facility] CBC (AUTO DIFF) MONOCYTES [#/VOLUME] IN BLOOD BY AUTOMATED COUNT 0.96 0.3 - 0.9 04/01 H Specimen Type: BLOOD No comment entered. Ordering Provider: VASILE LOVING Report Released Date/Time: Apr 10, 2021 11:31 AM Reporting Lab: [address] [address] Performing Lab: [address] [address] [facility] CBC (AUTO DIFF) EOSINOPHILS [#/VOLUME] IN BLOOD BY AUTOMATED COUNT 0.07 0.0 - 0.5 04/01 Specimen Type: BLOOD No comment entered. Ordering Provider: VASILE LOVING Report Released Date/Time: Apr 10, 2021 11:31 AM Reporting Lab: [address] [address] Performing Lab: [address] [address] [facility] CBC (AUTO DIFF) BASOPHILS [#/VOLUME] IN BLOOD BY AUTOMATED COUNT 0.04 0.0 - 0.1 04/01 Specimen Type: BLOOD No comment entered. Ordering Provider: VASILE LOVING Report Released Date/Time: Apr 10, 2021 11:31 AM Reporting Lab: [address] [address] Performing Lab: [address] [address] [facility] CBC (AUTO DIFF) NEUTROPHILS/ 100 LEUKOCYTES IN BLOOD 82.4 39.3 - 73.5 04/01 H Specimen Type: BLOOD No comment entered. Ordering Provider: VASILE LOVING Report Released Date/Time: Apr 10, 2021 11:31 AM Reporting Lab: [address] [address] Performing Lab: [address] [address] [facility] CBC (AUTO DIFF) LYMPHOCYTES/ 100 LEUKOCYTES IN BLOOD BY AUTOMATED COUNT 6.2 16.2 - 48.2 04/01 L Specimen Type: BLOOD No comment entered. Ordering Provider: VASILE LOVING Report Released Date/Time: Apr 10, 2021 11:31 AM Reporting Lab: [address] [address] Performing Lab: [address] [address] [facility] CBC (AUTO DIFF) MONOCYTES/10 0 LEUKOCYTES IN BLOOD BY AUTOMATED COUNT 9.9 5.2 - 11.4 04/01 Specimen Type: BLOOD No comment entered. Ordering Provider: VASILE LOVING Report Released Date/Time: Apr 10, 2021 11:31 AM Reporting Lab: [address] [address] Performing Lab: [address] [address] [facility] CBC (AUTO DIFF) EOSINOPHILS/ 100 LEUKOCYTES IN BLOOD BY AUTOMATED COUNT 0.7 0.4 - 7.6 04/01 Specimen Type: BLOOD No comment entered. Ordering Provider: VASILE LOVING Report Released Date/Time: Apr 10, 2021 11:31 AM Reporting Lab: [address] [address] Performing Lab: [address] [address] [facility] CBC (AUTO DIFF) BASOPHILS/10 0 LEUKOCYTES IN BLOOD BY AUTOMATED COUNT 0.4 0.1 - 1.2 04/01 Specimen Type: BLOOD No comment entered. Ordering Provider: VASILE LOVING Report Released Date/Time: Apr 10, 2021 11:31 AM Reporting Lab: [address] [address] Performing Lab: [address] [address] [facility] CBC (AUTO DIFF) IMMATURE GRANULOCYTES [#/VOLUME] IN BLOOD BY AUTOMATED COUNT 0.04 0.0 - 0.1 04/01 Specimen Type: BLOOD No comment entered. Ordering Provider: VASILE LOVING Report Released Date/Time: Apr 10, 2021 11:31 AM Reporting Lab: [address] [address] Performing Lab: [address] [address] [facility] CBC (AUTO DIFF) IMMATURE GRANULOCYTES /100 LEUKOCYTES IN BLOOD 0.4 0.0 - 0.7 04/01 Specimen Type: BLOOD No comment entered. Ordering Provider: VASILE LOVING Report Released Date/Time: Apr 10, 2021 11:31 AM Reporting Lab: [address] [address] Performing Lab: [address] [address] [facility] CBC (AUTO DIFF) SERVICE COMMENT DONE 04/01 Specimen Type: BLOOD No comment entered. Ordering Provider: VASILE LOVING Report Released Date/Time: Apr 10, 2021 11:31 AM Reporting Lab: [address] [address] Performing Lab: [address] [address] [facility] COMPREHENSI VE METABOLIC PANEL SODIUM [MOLES/VOLUM E] IN SERUM OR PLASMA 140 136 - 144 04/01 Specimen Type: PLASMA Comment: See EVAL Ordering Provider: VASILE LOVING Report Released Date/Time: Apr 10, 2021 11:31 AM Reporting Lab: [address] [address] Performing Lab: [address] [address] [facility] COMPREHENSI VE METABOLIC PANEL POTASSIUM [MOLES/VOLUM E] IN SERUM OR PLASMA 4.4 3.6 - 5.1 04/01 Specimen Type: PLASMA Comment: See EVAL Ordering Provider: VASILE LOVING Report Released Date/Time: Apr 10, 2021 11:31 AM Reporting Lab: [address] [address] Performing Lab: [address] [address] [facility] COMPREHENSI VE METABOLIC PANEL CHLORIDE [MOLES/VOLUM E] IN SERUM OR PLASMA 103 98 - 107 04/01 Specimen Type: PLASMA Comment: See EVAL Ordering Provider: VASILE LOVING Report Released Date/Time: Apr 10, 2021 11:31 AM Reporting Lab: [facility] [address] [facility] [address] Performing Lab: [facility] [address] [facility] [address] [facility] COMPREHENSI VE METABOLIC PANEL CARBON DIOXIDE, TOTAL [MOLES/VOLUM E] IN SERUM OR PLASMA 27 22 - 32 04/01 Specimen Type: PLASMA Comment: See EVAL Ordering Provider: VASILE LOVING Report Released Date/Time: Apr 10, 2021 11:31 AM Reporting Lab: [facility] [address] [place] [address] Performing Lab: [facility] [address] [place] [address] [facility] COMPREHENSI VE METABOLIC PANEL ANION GAP IN SERUM OR PLASMA 10 4 - 13 04/01 Specimen Type: PLASMA Comment: See EVAL Ordering Provider: VASILE LOVING Report Released Date/Time: Apr 10, 2021 11:31 AM Reporting Lab: [facility] [address] [place] [address] Performing Lab: [facility] [address] [place] [phone] [facility] COMPREHENSI VE METABOLIC PANEL GLUCOSE [MASS/VOLUME ] IN SERUM OR PLASMA 101 72 - 105 04/01 Specimen Type: PLASMA Comment: See EVAL Ordering Provider: VASILE LOVING Report Released Date/Time: Apr 10, 2021 11:31 AM Reporting Lab: [facility] [address] [facility] [address] Performing Lab: [facility] [address] [place] [phone] [facility] COMPREHENSI VE METABOLIC PANEL UREA NITROGEN [MASS/VOLUME ] IN SERUM OR PLASMA 15 7 - 25 04/01 Specimen Type: PLASMA Comment: See EVAL Ordering Provider: VASILE LOVING Report Released Date/Time: Apr 10, 2021 11:31 AM Reporting Lab: [facility] [address] [facility] [address] Performing Lab: [address] [address] [facility] COMPREHENSI VE METABOLIC PANEL CREATININE [MASS/VOLUME ] IN SERUM OR PLASMA 0.95 0.7 - 1.3 04/01 Specimen Type: PLASMA Comment: See EVAL Ordering Provider: VASILE LOVING Report Released Date/Time: Apr 10, 2021 11:31 AM Reporting Lab: [address] [address] Performing Lab: [address] [address] [facility] COMPREHENSI VE METABOLIC PANEL CALCIUM [MASS/VOLUME ] IN SERUM OR PLASMA 10.0 8.6 - 10.4 04/01 Specimen Type: PLASMA Comment: See EVAL Ordering Provider: VASILE LOVING Report Released Date/Time: Apr 10, 2021 11:31 AM Reporting Lab: [address] [address] Performing Lab: [address] [address] [facility] COMPREHENSI VE METABOLIC PANEL PROTEIN [MASS/VOLUME ] IN SERUM OR PLASMA 7.3 6.0 - 8.2 04/01 Specimen Type: PLASMA Comment: See EVAL Ordering Provider: VASILE LOVING Report Released Date/Time: Apr 10, 2021 11:31 AM Reporting Lab: [address] [address] Performing Lab: [address] [address] [facility] COMPREHENSI VE METABOLIC PANEL ALBUMIN [MASS/VOLUME ] IN SERUM OR PLASMA 3.9 3.5 - 5.0 04/01 Specimen Type: PLASMA Comment: See EVAL Ordering Provider: VASILE LOVING Report Released Date/Time: Apr 10, 2021 11:31 AM Reporting Lab: [address] [address] Performing Lab: [address] [address] [facility] COMPREHENSI VE METABOLIC PANEL ALKALINE PHOSPHATASE [ENZYMATIC ACTIVITY/VOL UME] IN SERUM OR PLASMA 119 35 - 104 04/01 H Specimen Type: PLASMA Comment: See EVAL Ordering Provider: VASILE LOVING Report Released Date/Time: Apr 10, 2021 11:31 AM Reporting Lab: [address] [address] Performing Lab: [address] [address] [facility] COMPREHENSI VE METABOLIC PANEL ASPARTATE AMINOTRANSFE RASE [ENZYMATIC ACTIVITY/VOL UME] IN SERUM OR PLASMA 21 13 - 36 04/01 Specimen Type: PLASMA Comment: See EVAL Ordering Provider: VASILE LOVING Report Released Date/Time: Apr 10, 2021 11:31 AM Reporting Lab: [address] [address] Performing Lab: [address] [address] [facility] COMPREHENSI VE METABOLIC PANEL ALANINE AMINOTRANSFE RASE [ENZYMATIC ACTIVITY/VOL UME] IN SERUM OR PLASMA 21 7 - 49 04/01 Specimen Type: PLASMA Comment: See EVAL Ordering Provider: VASILE LOVING Report Released Date/Time: Apr 10, 2021 11:31 AM Reporting Lab: [address] [address] Performing Lab: [address] [address] [facility] COMPREHENSI VE METABOLIC PANEL BILIRUBIN.TO ESAU [MASS/VOLUME ] IN SERUM OR PLASMA 0.3 0.2 - 1.3 04/01 Specimen Type: PLASMA Comment: See EVAL Ordering Provider: VASILE LOVING Report Released Date/Time: Apr 10, 2021 11:31 AM Reporting Lab: [address] [address] Performing Lab: [address] [address] [facility] COMPREHENSI VE METABOLIC PANEL GLOMERULAR FILTRATION RATE/1.73 SQ M.PREDICTED [VOLUME RATE/AREA] IN SERUM, PLASMA OR BLOOD BY CREATININE-B ASED FORMULA (CKD-EPI 2020) 82 04/01 L Specimen Type: PLASMA Comment: See EVAL Ordering Provider: VASILE LOVING Report Released Date/Time: Apr 10, 2021 11:31 AM Reporting Lab: [address] [address] Performing Lab: [facility] [address] [facility] [address] [facility] LIPID PANEL A, non-fasting CHOLESTEROL [MASS/VOLUME ] IN SERUM OR PLASMA 140 0 - 199 04/01 Specimen Type: PLASMA Comment: See EVAL Ordering Provider: VASILE LOVING Report Released Date/Time: Apr 10, 2021 11:31 AM Reporting Lab: [address] [address] Performing Lab: [address] [address] [facility] LIPID PANEL A, non-fasting CHOLESTEROL IN HDL [MASS/VOLUME ] IN SERUM OR PLASMA 62 40 - 60 04/01 Specimen Type: PLASMA Comment: See EVAL Ordering Provider: VASILE LOVING Report Released Date/Time: Apr 10, 2021 11:31 AM Reporting Lab: [address] [phone] Performing Lab: [address] [address] [facility] LIPID PANEL A, non-fasting CHOLESTEROL IN LDL [MASS/VOLUME ] IN SERUM OR PLASMA BY DIRECT ASSAY 56 100 - 159 04/01 Specimen Type: PLASMA Comment: See EVAL Ordering Provider: VASILE LOVING Report Released Date/Time: Apr 10, 2021 11:31 AM Reporting Lab: [address] [phone] Performing Lab: [address] [address] [facility] LIPID PANEL A, non-fasting CHOLESTEROL. TOTAL/CHOLES TEROL IN HDL [MASS RATIO] IN SERUM OR PLASMA 2.3 04/01 Specimen Type: PLASMA Comment: See EVAL Ordering Provider: VASILE LOVING Report Released Date/Time: Apr 10, 2021 11:31 AM Reporting Lab: [address] [address] Performing Lab: [address] [address] [facility] CBC (AUTO DIFF) LEUKOCYTES [#/VOLUME] IN BLOOD 11.0 4.00 - 10.60 03/31 H Specimen Type: BLOOD No comment entered. Ordering Provider: VASILE LOVING Report Released Date/Time: Mar 04, 2021 04:21 PM Reporting Lab: [place] [id number] [facility] [address] Performing Lab: [place] [address] [facility] [address] Sofia MITCHELL DEPT OF [facility] CBC (AUTO DIFF) ERYTHROCYTES [#/VOLUME] IN BLOOD BY AUTOMATED COUNT 3.69 4.23 - 5.75 03/31 L Specimen Type: BLOOD No comment entered. Ordering Provider: VASILE LOVING Report Released Date/Time: Mar 04, 2021 04:21 PM Reporting Lab: [place] [address] [facility] [address] Performing Lab: [place] [address] [facility] [address] Sofia MITCHELL DEPT OF [facility] CBC (AUTO DIFF) HEMOGLOBIN [MASS/VOLUME ] IN BLOOD 14.4 12.8 - 17.0 03/31 Specimen Type: BLOOD No comment entered. Ordering Provider: VASILE LOVING Report Released Date/Time: Mar 04, 2021 04:21 PM Reporting Lab: [place] [address] [facility] [address] Performing Lab: [place] [address] [facility] [address] Sofia MITCHELL DEPT [facility] CBC (AUTO DIFF) HEMATOCRIT [VOLUME FRACTION] OF BLOOD 40.8 39.3 - 50.0 03/31 Specimen Type: BLOOD No comment entered. Ordering Provider: VASILE LOVING Report Released Date/Time: Mar 04, 2021 04:21 PM Reporting Lab: [place] [address] [facility] [address] Performing Lab: [place] [address] [facility] [address] Sofia MITCHELL [facility]PT OF [facility] CBC (AUTO DIFF) MCV [ENTITIC VOLUME] BY AUTOMATED COUNT 110.6 79.7 - 99.5 03/31 H Specimen Type: BLOOD No comment entered. Ordering Provider: VASILE LOVING Report Released Date/Time: Mar 04, 2021 04:21 PM Reporting Lab: [facility] [address] [facility] [address] Performing Lab: [facility] [address] [facility] [address] Sofia MITCHELL [facility] OF [facility] CBC (AUTO DIFF) MCH [ENTITIC MASS] BY AUTOMATED COUNT 39.0 25.5 - 33.6 03/31 H Specimen Type: BLOOD No comment entered. Ordering Provider: VASILE LOVNIG Report Released Date/Time: Mar 04, 2021 04:21 PM Reporting Lab: [place] [address] [facility] [address] Performing Lab: [place] [address] [facility] [address] Sofia MITCHELL [facility] OF [facility] CBC (AUTO DIFF) MCHC [MASS/VOLUME ] BY AUTOMATED COUNT 35.3 30.9 - 35.1 03/31 H Specimen Type: BLOOD No comment entered. Ordering Provider: VASILE LOVING Report Released Date/Time: Mar 04, 2021 04:21 PM Reporting Lab: [place] [address] [facility] [address] Performing Lab: [place] [address] [facility] [address] Sofia MITCHELL [facility]PT [facility] CBC (AUTO DIFF) PLATELETS [#/VOLUME] IN BLOOD BY AUTOMATED COUNT 144 160 - 410 03/31 L Specimen Type: BLOOD No comment entered. Ordering Provider: VASILE LOVING Report Released Date/Time: Mar 04, 2021 04:21 PM Reporting Lab: [place] [id number] [facility] [address] Performing Lab: [place] [address] [facility] [address] Sofia MITCHELL [facility]PT [facility] CBC (AUTO DIFF) ERYTHROCYTE DISTRIBUTION WIDTH [RATIO] BY AUTOMATED COUNT 55.6 37.1 - 49.0 03/31 H Specimen Type: BLOOD No comment entered. Ordering Provider: VASILE LOVING Report Released Date/Time: Mar 04, 2021 04:21 PM Reporting Lab: [place] [address] [facility] [address] Performing Lab: [facility] [address] [facility] [address] Sofia MITCHELL DEPT [facility] CBC (AUTO DIFF) PLATELET MEAN VOLUME [ENTITIC VOLUME] IN BLOOD BY AUTOMATED COUNT 9.6 8.9 - 12.3 03/31 Specimen Type: BLOOD No comment entered. Ordering Provider: VASILE LOVING Report Released Date/Time: Mar 04, 2021 04:21 PM Reporting Lab: [facility] [address] [facility] [address] Performing Lab: [place] [address] [facility] [address] Sofia MITCHELL DEPT [facility] CBC (AUTO DIFF) PLATELETS RETICULATED/ 100 PLATELETS IN BLOOD BY AUTOMATED COUNT 4.8 0.9 - 11.2 03/31 Specimen Type: BLOOD No comment entered. Ordering Provider: VASILE LOVING Report Released Date/Time: Mar 04, 2021 04:21 PM Reporting Lab: [place] [address] [facility] [address] Performing Lab: [place] [address] [facility] [address] Sofia MITCHELL [facility]PT [facility] CBC (AUTO DIFF) NUCLEATED ERYTHROCYTES [#/VOLUME] IN BLOOD BY AUTOMATED COUNT 0.00 0.00 - 0.12 03/31 Specimen Type: BLOOD No comment entered. Ordering Provider: VASILE LOVING Report Released Date/Time: Mar 04, 2021 04:21 PM Reporting Lab: [facility] [address] [facility] [address] Performing Lab: [place] [address] [facility] [address] Sofia MITCHELL DEPT [facility] CBC (AUTO DIFF) NUCLEATED ERYTHROCYTES [PRESENCE] IN BLOOD BY AUTOMATED COUNT 0.0 0.0 - 0.2 03/31 Specimen Type: BLOOD No comment entered. Ordering Provider: VASILE LOVING Report Released Date/Time: Mar 04, 2021 04:21 PM Reporting Lab: [place] [address] [facility] [address] Performing Lab: [facility] [address] [facility] [address] Sofia MITCHELL [facility] OF [facility] CBC (AUTO DIFF) SERVICE COMMENT DONE 03/31 Specimen Type: BLOOD No comment entered. Ordering Provider: VASILE LOVING Report Released Date/Time: Mar 04, 2021 04:21 PM Reporting Lab: [facility] [address] [facility] [address] Performing Lab: [facility] [address] [facility] [address] Sofia MITCHELL [facility] OF [facility] COMPREHENSI VE METABOLIC PANEL SODIUM [MOLES/VOLUM E] IN SERUM OR PLASMA 142 136 - 144 03/31 Specimen Type: PLASMA No comment entered. Ordering Provider: VASILE LOVING Report Released Date/Time: Mar 04, 2021 04:21 PM Reporting Lab: [place] [address] [facility] [address] Performing Lab: [place] [address] [facility] [address] Sofia MITCHELL [facility] OF [facility] COMPREHENSI VE METABOLIC PANEL POTASSIUM [MOLES/VOLUM E] IN SERUM OR PLASMA 4.1 3.6 - 5.1 03/31 Specimen Type: PLASMA No comment entered. Ordering Provider: VASILE LOVING Report Released Date/Time: Mar 04, 2021 04:21 PM Reporting Lab: [facility] [address] [facility] [address] Performing Lab: [facility] [address] [facility] [address] Sofia MITCHELL [facility] COMPREHENSI VE METABOLIC PANEL CHLORIDE [MOLES/VOLUM E] IN SERUM OR PLASMA 104 98 - 107 03/31 Specimen Type: PLASMA No comment entered. Ordering Provider: VASILE LOVING Report Released Date/Time: Mar 04, 2021 04:21 PM Reporting Lab: [facility] [address] [facility] [address] Performing Lab: [place] [address] [facility] [address] Sofia MITCHELL [facility] COMPREHENSI VE METABOLIC PANEL CARBON DIOXIDE, TOTAL [MOLES/VOLUM E] IN SERUM OR PLASMA 30 22 - 32 03/31 Specimen Type: PLASMA No comment entered. Ordering Provider: VASILE LOVING Report Released Date/Time: Mar 04, 2021 04:21 PM Reporting Lab: [facility] [address] [facility] [address] Performing Lab: [facility] [address] [facility] [address] Sofia MITCHELL [facility] COMPREHENSI VE METABOLIC PANEL ANION GAP IN SERUM OR PLASMA 8 03/31 Specimen Type: PLASMA No comment entered. Ordering Provider: VASILE LOVING Report Released Date/Time: Mar 04, 2021 04:21 PM Reporting Lab: [facility] [address] [facility] [address] Performing Lab: [facility] [address] [facility] [address] Sofia MITCHELL [facility] COMPREHENSI VE METABOLIC PANEL GLUCOSE [MASS/VOLUME ] IN SERUM OR PLASMA 92 72 - 105 03/31 Specimen Type: PLASMA No comment entered. Ordering Provider: VASILE LOVING Report Released Date/Time: Mar 04, 2021 04:21 PM Reporting Lab: [facility] [address] [facility] [address] Performing Lab: [facility] [address] [facility] [address] Sofia MITCHELL [facility] COMPREHENSI VE METABOLIC PANEL UREA NITROGEN [MASS/VOLUME ] IN SERUM OR PLASMA 13 7 - 25 03/31 Specimen Type: PLASMA No comment entered. Ordering Provider: VASILE LOVING Report Released Date/Time: Mar 04, 2021 04:21 PM Reporting Lab: [facility] [address] [facility] [address] Performing Lab: [facility] [address] [facility] [address] Sofia MITCHELL [facility] COMPREHENSI VE METABOLIC PANEL CREATININE [MASS/VOLUME ] IN SERUM OR PLASMA 1.0 0.7 - 1.3 03/31 Specimen Type: PLASMA No comment entered. Ordering Provider: VASILE LOVING Report Released Date/Time: Mar 04, 2021 04:21 PM Reporting Lab: [facility] [address] [facility] [address] Performing Lab: [facility] [address] [facility] [address] Sofia MITCHELL [facility] COMPREHENSI VE METABOLIC PANEL CALCIUM [MASS/VOLUME ] IN SERUM OR PLASMA 9.8 8.5 - 9.8 03/31 Specimen Type: PLASMA No comment entered. Ordering Provider: VASILE LOVING Report Released Date/Time: Mar 04, 2021 04:21 PM Reporting Lab: [facility] [address] [facility] [address] Performing Lab: [place] [address] [facility] [address] Sofia MITCHELL [facility] COMPREHENSI VE METABOLIC PANEL PROTEIN [MASS/VOLUME ] IN SERUM OR PLASMA 6.7 6.0 - 8.2 03/31 Specimen Type: PLASMA No comment entered. Ordering Provider: VASILE LOVING Report Released Date/Time: Mar 04, 2021 04:21 PM Reporting Lab: [facility] [address] [facility] [address] Performing Lab: [facility] [address] [facility] [address] Sofia MITCHELL [facility] COMPREHENSI VE METABOLIC PANEL ALBUMIN [MASS/VOLUME ] IN SERUM OR PLASMA 3.8 3.5 - 5.0 03/31 Specimen Type: PLASMA No comment entered. Ordering Provider: VASILE LOVING Report Released Date/Time: Mar 04, 2021 04:21 PM Reporting Lab: [facility] [address] [facility] [address] Performing Lab: [facility] [address] [facility] [address] Sofia MITCHELL [facility] COMPREHENSI VE METABOLIC PANEL ALKALINE PHOSPHATASE [ENZYMATIC ACTIVITY/VOL UME] IN SERUM OR PLASMA 104 35 - 104 03/31 Specimen Type: PLASMA No comment entered. Ordering Provider: VASILE LOVING Report Released Date/Time: Mar 04, 2021 04:21 PM Reporting Lab: [facility] [address] [facility] [address] Performing Lab: [facility] [address] [facility] [address] Sofia MITCHELL [facility] COMPREHENSI VE METABOLIC PANEL ASPARTATE AMINOTRANSFE RASE [ENZYMATIC ACTIVITY/VOL UME] IN SERUM OR PLASMA 20 13 - 36 03/31 Specimen Type: PLASMA No comment entered. Ordering Provider: VASILE LOVING Report Released Date/Time: Mar 04, 2021 04:21 PM Reporting Lab: [facility] [address] [facility] [address] Performing Lab: [facility] [address] [facility] [address] Sofia MITCHELL [facility] COMPREHENSI VE METABOLIC PANEL ALANINE AMINOTRANSFE RASE [ENZYMATIC ACTIVITY/VOL UME] IN SERUM OR PLASMA 22 7 - 49 03/31 Specimen Type: PLASMA No comment entered. Ordering Provider: VASILE LOVING Report Released Date/Time: Mar 04, 2021 04:21 PM Reporting Lab: [facility] [address] [facility] [address] Performing Lab: [facility] [address] [facility] [address] Sofia MITCHELL [facility] COMPREHENSI VE METABOLIC PANEL BILIRUBIN.TO ESAU [MASS/VOLUME ] IN SERUM OR PLASMA 0.6 0.2 - 1.3 03/31 Specimen Type: PLASMA No comment entered. Ordering Provider: VASILE LOVING Report Released Date/Time: Mar 04, 2021 04:21 PM Reporting Lab: [facility] [address] [facility] [address] Performing Lab: [facility] [address] [facility] [address] Sofia MITCHELL [facility] COMPREHENSI VE METABOLIC PANEL GLOMERULAR FILTRATION RATE/1.73 SQ M.PREDICTED [VOLUME RATE/AREA] IN SERUM OR PLASMA BY CREATININE-B ASED FORMULA (MDRD) >60 03/31 Specimen Type: PLASMA No comment entered. Ordering Provider: VASILE LOVING Report Released Date/Time: Mar 04, 2021 04:21 PM Reporting Lab: [facility] [address] [facility] [address] Performing Lab: [facility] [address] [facility] [address] Sofia MITCHELL [facility] PROSTATIC SPECIFIC ANTIGEN PROSTATE SPECIFIC AG [MASS/VOLUME ] IN SERUM OR PLASMA 15.1 0.0 - 4.0 03/31 H Specimen Type: SERUM Comment: FREE PSA NOT INDICATED IF TOTAL PSA IS <3.5 OR >10.5 ng/mL Ordering Provider: VASILE LOVING Report Released Date/Time: Mar 04, 2021 04:21 PM Reporting Lab: [facility] [address] [facility] [address] Performing Lab: [place] [address] [facility] [address] Sofia MITCHELL [facility] LIPID PANEL A, non-fasting CHOLESTEROL [MASS/VOLUME ] IN SERUM OR PLASMA 144 0 - 199 03/31 Specimen Type: PLASMA No comment entered. Ordering Provider: VASILE LOVING Report Released Date/Time: Mar 04, 2021 04:21 PM Reporting Lab: [facility] [address] [facility] [address] Performing Lab: [facility] [address] [facility] [address] Sofia MITCHELL [facility] LIPID PANEL A, non-fasting CHOLESTEROL IN HDL [MASS/VOLUME ] IN SERUM OR PLASMA 65 40 - 60 03/31 Specimen Type: PLASMA No comment entered. Ordering Provider: VASLIE LOVING Report Released Date/Time: Mar 04, 2021 04:21 PM Reporting Lab: [facility] [address] [facility] [address] Performing Lab: [facility] [address] [facility] [address] Sofia MITCHELL [facility] LIPID PANEL A, non-fasting CHOLESTEROL IN LDL [MASS/VOLUME ] IN SERUM OR PLASMA BY DIRECT ASSAY 61 100 - 159 03/31 Specimen Type: PLASMA No comment entered. Ordering Provider: VASILE LOVING Report Released Date/Time: Mar 04, 2021 04:21 PM Reporting Lab: [facility] [address] [facility] [address] Performing Lab: [facility] [address] [facility] [address] Sofia MITCHELL [facility] LIPID PANEL A, non-fasting CHOLESTEROL. TOTAL/CHOLES TEROL IN HDL [MASS RATIO] IN SERUM OR PLASMA 2.2 03/31 Specimen Type: PLASMA No comment entered. Ordering Provider: VASILE LOVING Report Released Date/Time: Mar 04, 2021 04:21 PM Reporting Lab: [facility] [address] [facility] [address] Performing Lab: [facility] [address] [facility] [address] Sofia MITCHELL [facility] Vital Signs Combined list of inpatient and outpatient Vital Signs from Department of Defense and Veterans Affairs, ranging from 12 months to all on record, depending upon the facility. Vital Sign Value Date Comments Source SYSTOLIC BLOOD PRESSURE 95 04/08/2022 10:42:06 [facility] DIASTOLIC BLOOD PRESSURE 55 04/08/2022 10:42:06 [facility] PULSE OXIMETRY 97% 04/08/2022 10:42:06 [facility] WEIGHT 176.9 04/08/2022 10:42:06 [facility] BMI 25kg/m2 04/08/2022 10:42:06 [facility] PAIN 0 04/08/2022 10:42:06 [facility] HEIGHT 70 04/08/2022 10:42:06 [facility] TEMPERATURE 97.8 04/08/2022 10:42:06 [facility] PULSE 84 04/08/2022 10:42:06 [facility] RESPIRATION 16 04/08/2022 10:42:06 [facility] Encounters Combined list of: 1) Encounters from Department of Veterans Affairs facilities going back up to thelast 18 months. 2) Encounters from the Department of Defense facilities going back up to 280 months. Location Location Details Encounter Type Encounter Number Reason For Visit Attending Provider ADM Date DC Date Status Disposition Source [facility] HEARING AID CHECK BOTH EARS [id number] Diagnos is: ICD-10- CM H90.3 Sensori neural hearing loss, bilater al
OMAR LEES H 10/09 [facility] SELF-MGMT EDUC & TRA[place] 1 [place] [id number] Diagnos is: ICD-10- CM Z46.1 Encount er for fitting and adjustm ent of hearing aid<br/ > Martin JUAREZ 10/31 [facility] Sofia MITCHELL [facility] OF [facility] Outpatient Encounter [id number] 02/07 Sofia MITCHELL [facility] Sofia MITCHELL [facility] Outpatient Encounter [id number] 04/08 Sofia MITCHELL [facility]PT [facility] OFFICE O/P EST MOD 30-39 MIN [id number] Diagnos is: ICD-10- CM C61 Maligna nt neoplas m of prostat e
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
JULIAN DOMINGO E 11/19 [facility] CONFORMITY EVALUATION [id number] Diagnos is: ICD-10- CM H90.3 Sensori neural hearing loss, bilater al
Jose David SANDERS 01/07 [facility] Sofia MITCHELL [facility] Outpatient Encounter [id number] 02/15 Sofia MITCHELL [facility] Social History Combined list of available smoking, tobacco, and other social history from Department of Defense and Veterans Affairs facilities. 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 Additional future care activities may be listed in the Assessment and Plan section. Date/Time Care Activity Care Activity Detail Facili ty 04/03/2023 Laboratory - Chemistry Order CBC (AUTO DIFF) BLOOD LAVENDER SP ONCE [facility]
[2023-04-25] MEDS: MECLIZINE HCL 25 MG TABLET PO (19:26)
== END 2023-04-25 21:12 | disposition home or self-care (01) ==
PROVIDERS: Emergency Provider Family Medicine; PCP Family Medicine
DX: J18.9 Pneumonia, unspecified organism (principal); E87.1 Hypo-osmolality and hyponatremia
CPT/HCPCS: 36415; 71046; 71275; 76705; 80048; 80076; 81001; 83605; 83880; 84443; 84484; 85025; 85379; 86140; 86308; 87086; 87631; 93005; 94761; 96360; 96361; 99284; 99285; A9270; J7030; Q9967